=== PATIENT | female | born 1955 | race Caucasian/White ===

== ENCOUNTER 2017-11-11 21:50 | Emergency (ER) | payer MEDICAID, SELFPAY ==
[2017-11-11 21:50] VITALS: PULSE 85; RESP 16; TEMP 36.2; O2SAT 98; BMI 30.5
--- NOTE | 2017-11-11 21:58 | ED.VISSUMM ---
- ER Visit Summary Date of Service: 11/11/17 Chief Complaint: Laceration History of Present Illness: The patient is a 62 F presenting after a fall in her kitchen. She states she slipped and fell hitting her right elbow. She has a laceration to her right elbow. She did not hit her head or lose consciousness. Her last tetanus is unknown. She denies other injuries. Physical Examination: Vitals are stable. Patient is afebrile. Alert no acute distress. HEENT exam is unremarkable. Neck is nontender Lungs are clear and equal bilaterally. Heart is regular rate and rhythm. Abdomen is soft nontender nondistended. Extremities right posterior elbow 2.0 cm laceration, active full range of motion Skin is warm and dry. No focal neurologic deficit. Remainder of exam is unremarkable. Emergency Department Course and Treatment: Patient is given tetanus IM. Right elbow x-ray shows no acute fracture. Wound was copiously irrigated. Anesthetized with lidocaine. 4, 5-0 simple sutures were placed. Patient tolerated this well. Advised wound care instructions. Advised to follow-up with her primary care physician. Advised to return to ED for worsening complaints. Disposition: Discharged home Impression: Right elbow laceration, laceration repair This note was generated with [employer] dictation software. It may contain incorrect words, spelling, and punctuation that were not noted in review of the chart prior to signing ED Disposition - Plan for ED Patient: Chief Complaint: Laceration Referrals: Jose Brown MD [Primary Care Provider] -
[2017-11-11] MEDS: Diphth,Pertuss(Acell),Tet Vac 0.5 ML Vial IM (22:11)
--- NOTE | 2017-11-11 22:36 | ED.DEP ---
ED Disposition - Plan for ED Patient: Chief Complaint: Laceration Instructions: ED Laceration All Referrals: Jose Brown MD [Primary Care Provider] -
[2017-11-11 22:48] VITALS: BP 136/81
== END 2017-11-11 23:12 | disposition home or self-care (01) ==
LOC: ED 22:09
PROVIDERS: Emergency Provider Emergency Medicine; Family Provider Internal Medicine; PCP Internal Medicine
DX: S51.011A Laceration without foreign body of right elbow, initial encounter (principal); Z23 Encounter for immunization; W01.0XXA Fall on same level from slipping, tripping and stumbling without subsequent striking against object, initial encounter; Y93.89 Activity, other specified; Y92.000 Kitchen of unspecified non-institutional (private) residence as the place of occurrence of the external cause; Y99.8 Other external cause status
CPT/HCPCS: 12001; 73080; 90471; 90715; 99284

== ENCOUNTER 2017-12-14 14:47 | Emergency (ER) | payer MEDICAID, SELFPAY ==
[2017-12-14 14:47] VITALS: BP 110/76; PULSE 106; RESP 30; TEMP 36.7; O2SAT 95; BMI 36.1
--- NOTE | 2017-12-14 15:07 | CT_ITS ---
STUDY: CT BRAIN WITHOUT CONTRAST REASON FOR EXAM: Female, 62 years old. Headaches. Confusion. RADIATION DOSAGE (If Supplied By Facility): CTDIvol = ( 44.99 ) mGy, DLP = ( 779.24 ) mGycm TECHNIQUE: Transaxial CT imaging of the brain was performed without administration of intravenous contrast material. Individualized dose optimization techniques were used for this CT. COMPARISON: None. FINDINGS: Normal soft tissue structures. Normal calvarium. There is mild cerebral atrophy with widening of the extra-axial spaces and ventricular dilatation. Normal white matter tracts of the cerebral hemispheres. Normal basal ganglia and thalami. Normal brainstem. Normal cerebellum. There is no intracranial hemorrhage. There are no findings of an acute ischemic infarction. Normal visualized paranasal sinuses. CT/Brain/Head without Contrast IMPRESSION: Chronic involutional changes of the brain. Electronically Signed: Alex Meadows MD at 16:05 EDT Tel [phone], Service support ,
--- NOTE | 2017-12-14 15:07 | CT_ITS ---
STUDY: CT ABDOMEN AND PELVIS WITHOUT CONTRAST REASON FOR EXAM: Female, 62 years old. Constipation and nausea RADIATION DOSAGE (If Supplied By Facility): CTDIvol = ( 19.56 ) mGy, DLP = ( 879.53 ) mGycm TECHNIQUE: Transaxial images were obtained from the dome of the diaphragm to the symphysis pubis without oral contrast, and without intravenous contrast. Sagittal and coronal images were reconstructed. Individualized dose optimization techniques were used for this CT. COMPARISON: None. FINDINGS: Minor interstitial thickening at the lung bases.. The visualized portions of the heart are within normal limits. Small hiatal hernia is present. Normal liver. Status post cholecystectomy.. Normal spleen. Normal pancreas. Normal bilateral adrenal glands. Normal right kidney. Normal left kidney. Normal visualized stomach. Nonspecific ileus with diffuse fecal retention in the colon. The appendix is visualized and appears normal. Mild atherosclerotic changes of the aorta without evidence for aneurysm. Normal inferior vena cava. Normal retroperitoneum. Nonspecific distention of the bladder. Normal abdominal wall. Lumbar spine demonstrates advanced spondylosis. Interosseous hemangioma within the L2 vertebral body. CT/Abdomen/Pelvis without Cont IMPRESSION: Nonspecific ileus with diffuse fecal retention in the colon. Status postcholecystectomy Electronically Signed: Fan Cevallos MD at 17:21 EDT , Service support ,
--- NOTE | 2017-12-14 15:12 | ED.DCSUM_ITS ---
- ER Visit Summary Date of Service: 12/14/17 Chief Complaint: Headache, dizzy, constipation History of Present Illness: The patient is a 62 F reports dizzy episodes since yesterday. She woke this morning with a headache behind her eyes. She has not taken anything for pain. She is also complaining of constipation but cannot tell me when her last bowel movement was. She denies prior abdominal surgeries. She denies history of constipation. Physical Examination: Vital signs in triage include a heart rate of 106 and respiratory rate of 30. The time of my examination she is sitting in a bedside chair in no acute distress and speaking full sentences. Head neck examination grossly unremarkable. Heart is regular rate and rhythm. Lung sounds are clear. Abdomen is soft with no focal tenderness on exam. Active bowel sounds are noted throughout. Neuro exam reveals no focal deficits. Test Results: CBC was normal white count. Hemoglobin 11.9. Chemistry studies significant for glucose of 144. Urinalysis normal. CT head shows chronic involutional changes. CT flank shows nonspecific ileus with diffuse fecal retention in the colon. Emergency Department Course and Treatment: Patient was given IV fluids, Zofran, Tylenol. Soapsuds enema was performed with small results. On repeat exam patient continues to have active bowel sounds throughout. She has been passing gas. There is no focal tenderness of her abdomen. She will be given mag citrate for home. She is to return for worsening symptoms or concerns. Treatment Plan: [] Disposition: Discharge Impression: 1. Constipation 2. Cephalgia, improved This note was generated with [employer] dictation software. It may contain incorrect words, spelling, and punctuation that were not noted in review of the chart prior to signing ED Disposition - Plan for ED Patient: Chief Complaint: General Illness Referrals: Jose Brown MD [Primary Care Provider] -
[2017-12-14] MEDS: Acetaminophen 500 MG Tablet 1000 MG PO (15:27)
[2017-12-14 15:28] LABS: Absolute Lymphocyte Count 1.32 X10^3/ul (0.83-4.51); Absolute Neutrophil Count 6.7 X10^3/uL (2.0-7.7); Basophil# 0.03 X10^3/uL; Basophil% 0.3 % (0-1); Eosinophil# 0.01 X10^3/uL; Eosinophils% 0.1 % (0-5); Hematocrit 36.3 % (37-47); Hemoglobin 11.9 g/dl (12.0-15.0); Lymphocyte # 1.32 X10^3/ul (4.0); Lymphocyte % 14.9 % (19-41); Mean Corp Hgb Conc 32.8 g/gl (32-36); Mean Corpuscular Hgb 28.3 pg (27.0-32.0); Mean Corpuscular Volume 86.4 fL (81-99); Mean Platelet Vol. 9.7 fl (6.2-12.0); Monocyte# 0.86 X10^3/uL; Monocyte% 9.7 % (0-10); Neutrophil # 6.65 X10^3/uL (2.7-7.7); Neutrophil % 74.9 % (47-70); Platelet Count 282 K/mm3 (150-450); RBC Distribution Width SD 44.1 fl (35.1-43.9); White Blood Count 8.9 K/mm3 (4.4-11.0)
[2017-12-14] MEDS: Ondansetron 4 MG/2 ML Vial IV (15:28)
[2017-12-14] MEDS: 0.9% Normal Saline 1,000 ML 150 ML IV (15:28)
[2017-12-14 15:31] LABS: POSITIVE COUNT NO; POSITIVE DIFFERENTIAL NO; POSITIVE MORPHOLOGY NO
[2017-12-14 15:37] LABS: Anion Gap 8 (5-15); BUN 16 mg/dL (7-18); BUN/Creat Ratio 17.3 RATIO (10-20); Calcium,Total 8.7 mg/dL (8.5-10.1); Chloride 107 mmol/L (98-107); Creatinine, Serum 0.92 mg/dL (0.55-1.02); EST Glomerular Filtration Rate 65 mL/min (>60); Est Glom Filt Rate - Afr Amer 79 mL/min (>60); Estimated Creatinine Clearance 77.54 ml/min; Glucose 144 mg/dL (74-106); Potassium 4.9 mmol/L (3.5-5.1); Sodium Level 138 mmol/L (136-145)
[2017-12-14 16:07] LABS: Bacteria 0 SEEN /hpf (None Seen); Mucous, Urine 0 SEEN /hpf (<or=2+); Red Blood Cells-Urine 0 SEEN /hpf (0-5)
[2017-12-14 16:21] LABS: Color, Urine Yellow (Yellow); Glucose, Dipstick Normal (Normal); Ketone-Dipstick Negative (Negative); Leukocyte Esterase-Dipstick Negative /ul (Negative); Nitrite-Dipstick Negative (Negative); Occult Blood-Urine Negative /ul (Negative); Protein-Dipstick Negative (Negative); Specific Gravity, Urine 1.015 (1.002-1.030); Urine Bilirubin Dipstick Negative (Negative); Urine Clarity Clear (Clear); Urine Urobilinogen Normal (Normal)
[2017-12-14 16:37] LABS: Squamous Epithelial Cells - UA 0-5 SEEN /hpf (5-10); White Blood Cells 0-5 SEEN /hpf (0-5)
[2017-12-14 17:00] VITALS: BP 110/55; PULSE 100; RESP 18; O2SAT 96
--- NOTE | 2017-12-14 18:26 | ED.DEP ---
ED Disposition - Plan for ED Patient: Disposition: Home or Assisted Living Chief Complaint: General Illness Instructions: ED Constipation, ED Cephalgia Unspecified Prescriptions: Magnesium Citrate [Citrate Of Magnesia] 150 ml PO Q12H PRN #300 ml PRN Reason: Constipation Referrals: Jose Brown MD [Primary Care Provider] - 1 Week
== END 2017-12-14 18:38 | disposition home or self-care (01) ==
PROVIDERS: Emergency Provider Emergency Medicine; Family Provider Internal Medicine; PCP Internal Medicine
DX: K59.00 Constipation, unspecified (principal); R51 Headache; R11.0 Nausea; R42 Dizziness and giddiness; R21 Rash and other nonspecific skin eruption; J45.909 Unspecified asthma, uncomplicated; E11.9 Type 2 diabetes mellitus without complications; I10 Essential (primary) hypertension; Z79.84 Long term (current) use of oral hypoglycemic drugs; Z79.899 Other long term (current) drug therapy
CPT/HCPCS: 70450; 74176; 80048; 81001; 85025; 96361; 96374; 99285; J7030; A4216; J2405

== ENCOUNTER 2018-11-29 16:26 | Emergency (ER) | payer MEDICAID, SELFPAY ==
[2018-11-29 16:27] VITALS: BP 124/71; PULSE 86; RESP 15; TEMP 35.8; O2SAT 95; BMI 26.8
--- NOTE | 2018-11-29 17:34 | ED.DCSUM_ITS ---
History of Present Illness Chief Complaint: Constipation Informant: Patient - Abdominal Pain/Flank Pain Onset: Month(s) Context: Gradual Onset Timing: Continuous Quality: Aching, Cramping Location: Diffuse Current Severity: Mild Maximum Severity: Moderate Worsened by: Nothing Relieved by: Nothing - Nausea/Vomiting/Emesis GI Symptom: Negative for: Nausea, Vomiting - Diarrhea/Melena/Hematochezia GI Symptom: Negative for: Diarrhea, Melena, Hematochezia Associated Symptoms: Negative for: Dysuria, Frequency, Hematuria, Urgency LMP: Postmenopausal Narrative: Pasha is a 63-year-old woman who presents with abdominal discomfort, distention and reported no bowel movement for 1 month. Upon questioning she has small blanquita occasionally. She is still passing gas. She denies history of abdominal surgery. She denies weight loss or weight gain. She denies night sweats. She denies bone pain. She has no other symptoms. Prior similar symptoms: No Recent Illness/Hospitalization: No Past Medical History - Allergies and Home Meds Allergies/Adverse Reactions: Allergies No Known Allergies Allergy (Verified 11/29/18 16:27) Primary Care Physician: Jose Brown MD [Primary Care Provider] - Smoking Status: Current every day smoker Review of Systems General: Denies: Chills, Fever, Malaise, Subjective, Sweats, Weight loss, - Eyes: Denies: Visual changes - bilaterally, Blurred Vision - bilaterally ENT: Denies: Rhinorrhea, Sore throat Cardiovascular: Denies: Chest pain, Palpitations Respiratory: Denies: Dyspnea, Cough, Dyspnea on exertion Gastrointestinal: Reports: Abdominal pain, Constipation, Hematochezia. Denies: Nausea, Vomiting, Diarrhea, Melena, -, - Genitourinary: Denies: Dysuria, Hematuria, Frequency Musculoskeletal: Denies: Myalgias, Arthralgias, Neck pain, Back pain, Swelling, Extremity Pain, -, - Skin: Denies: Rash, Wounds Neurological: Denies: Headache, Weakness, Parasthesia Hematologic: Denies: Easy bruising, Easy bleeding Physical Exam Vital Signs/Narrative: Vital Signs Temp Pulse Resp BP Pulse Ox 11/29/18 16:27 96.4 F L 86 15 124/71 H 95 Inital Vital Signs reviewed: Yes General: Well nourished, Well developed, Obese, No Acute Distress Eyes: Perrl, EOMI. Negative for: Pale conjunctiva, Scleral icterus ENT: No rhinorrhea, TM's clear Neck: Supple, Nontender, No lymphadenopathy, No JVD Cardiovascular: Regular rate, Regular rhythm, No murmurs, Normal S1, Normal S2 Respiratory: No distress, CTA bilaterally, Chest nontender Abdomen: Soft, Nontender, No masses, Hypoactive bowel sounds - Abdomen is tympanitic to percussion., Mass. Negative for: Nondistended, Normal bowel sounds, Hepatomegaly, Splenomegaly Rectal: - - Hemorrhoid noted 7:00 lithotomy position. Stool is soft formed and brown. There is no palpable masses or rectal tenderness. Back: Nontender, Normal Inspection Extremities: Nontender, No edema Skin: Normal color, No rash. Negative for: Cyanosis, Diaphoresis, Jaundice Neurological: Alert, Oriented x3, Cranial nerves II-XII grossly intact, Normal Strength, Normal Sensation Psychological: Normal affect, Normal Mood Diagnostic/Tx/Re-eval Chest X-Ray - ED: Read by ED Physician, - - Three-view x-ray of the abdomen was obtained. Chest portion reveals chronic changes. Cardiac silhouette and mediastinum are normal. Osseous structures are normal patient has not seen a gas pattern secondary to obstipation. - Medical Decision Making Patient was informed the reason she is having blood with bowel movements is secondary to inflamed hemorrhoid with evidence of recent bleeding. Because she is distended tympanitic will obtain x-ray to assess for ileus versus bowel obstruction versus obstipation. Because she is elderly will obtain CBC to assess for anemia and conference metabolic panel to assess for hypocalcemia, el evated alkaline phosphatase which may indicate malignancy. ED Disposition - Plan for ED Patient: Disposition: Home or Assisted Living Diagnosis: Abdominal pain, Obstipation, Bleeding hemorrhoid Referrals: Jose Brown MD [Primary Care Provider] - Additional Instructions: Guarding tomorrow morning drink 10 ounces of mag citrate. 4 hours later drink 1 glass of MiraLAX. Drink 1 glass of MiraLAX every hour until you have results.
[2018-11-29 17:54] LABS: Absolute Lymphocyte Count 0.94 X10^3/uL (0.83-4.51); Absolute Neutrophil Count 5.8 X10^3/uL (2.0-7.7); Basophil# 0.02 X10^3/uL; Basophil% 0.3 % (0-1); Eosinophil# 0.02 X10^3/uL; Eosinophils% 0.3 % (0-5); Hematocrit 36.2 % (37-47); Hemoglobin 11.8 g/dL (12.0-15.0); Lymphocyte # 0.94 X10^3/ul (4.0); Lymphocyte % 12.5 % (19-41); Mean Corp Hgb Conc 32.6 g/dL (32-36); Mean Corpuscular Hgb 28.4 pg (27.0-32.0); Mean Corpuscular Volume 87.2 fL (81-99); Mean Platelet Vol. 10.4 fl (6.2-12.0); Monocyte# 0.65 X10^3/uL; Monocyte% 8.7 % (0-10); NRBC Flagged by Analyzer 0 % (0-5); Neutrophil # 5.84 X10^3/uL (2.7-7.7); Neutrophil % 77.8 % (47-70); Platelet Count 213 K/mm3 (150-450); RBC Distribution Width CV 14.2 % (11.6-14.6); RBC Distribution Width SD 44.5 fl (35.1-43.9); Red Blood Count 4.15 M/mm3 (4.2-5.4); White Blood Count 7.5 K/mm3 (4.4-11.0)
--- NOTE | 2018-11-29 17:57 | RAD_ITS ---
STUDY: X-RAY - ACUTE ABDOMINAL SERIES REASON FOR EXAM: Female, 63 years old. Rectal bleeding TECHNIQUE: 2 views of the chest. Supine, 3 view(s) of the abdomen were obtained. COMPARISON: None. FINDINGS: The lungs are clear and expanded. Normal size heart. Normal mediastinum and mike. Normal visualized pulmonary arteries. Calcified aortic arch and descending thoracic aorta. There is a non-specific bowel gas pattern. Mild colonic fecal retention. Surgical clips in the right upper quadrant. The soft tissue structures of the abdomen and pelvis are unremarkable. Degenerative vertebral changes and scoliosis. RAD/Acute Abdomen Inc Chest IMPRESSION: Colonic fecal retention. Electronically Signed: Luther Bellamy DO at 18:12 EDT Tel [phone], Service support ,
[2018-11-29 18:16] LABS: ALB/GLOB Ratio 0.9 RATIO (0.9-2.4); AST(SGOT) 15 U/L (15-37); Alanine Aminotransfer ALT/SGPT 18 U/L (13-56); Albumin, Serum 3.4 g/dL (3.2-5.0); Alkaline Phosphatase 99 U/L (45-117); Anion Gap 7 (5-15); BUN 28 mg/dL (7-18); BUN/Creat Ratio 28.2 RATIO (10-20); Calcium,Total 8.6 mg/dL (8.5-10.1); Chloride 109 mmol/L (98-107); Creatinine, Serum 0.99 mg/dL (0.55-1.02); EST Glomerular Filtration Rate 60 mL/min (>60); Est Glom Filt Rate - Afr Amer 72 mL/min (>60); Estimated Creatinine Clearance 41.24 ml/min; Globulin 3.6 g/dL (2.2-4.2); Glucose 84 mg/dL (74-106); Sodium Level 140 mmol/L (136-145)
--- NOTE | 2018-11-29 18:33 | ED.VISSUMM ---
- ER Visit Summary Date of Service: 11/29/18 Chief Complaint: [] History of Present Illness: The patient is a 63 F [] Physical Examination: [] Test Results: [] Emergency Department Course and Treatment: [] Treatment Plan: [] Disposition: [] Impression: [] This note was generated with [employer] dictation software. It may contain incorrect words, spelling, and punctuation that were not noted in review of the chart prior to signing ED Disposition - Plan for ED Patient: Disposition: Home or Assisted Living Diagnosis: Abdominal pain, Obstipation, Bleeding hemorrhoid Instructions: CONSTIPATION (Adult) Referrals: Jose Brown MD [Primary Care Provider] - Additional Instructions: Guarding tomorrow morning drink 10 ounces of mag citrate. 4 hours later drink 1 glass of MiraLAX. Drink 1 glass of MiraLAX every hour until you have results.
[2018-11-29 18:40] VITALS: BP 108/66; PULSE 72; RESP 15; O2SAT 99
== END 2018-11-29 18:40 | disposition home or self-care (01) ==
PROVIDERS: Emergency Provider Emergency Medicine; Family Provider Internal Medicine; PCP Internal Medicine
DX: K59.00 Constipation, unspecified (principal); K64.9 Unspecified hemorrhoids; R10.9 Unspecified abdominal pain; F17.200 Nicotine dependence, unspecified, uncomplicated; E66.9 Obesity, unspecified
CPT/HCPCS: 74022; 80053; 85025; 99284; A4216

== ENCOUNTER 2019-05-18 17:46 | Emergency (ER) | payer MEDICAID, SELFPAY ==
[2019-05-18] VITALS (7 sets, daily range): BP systolic 106–159; BP diastolic 51–108; PULSE 103–117; RESP 19–28; TEMP 36.6; O2SAT 95–99; BMI 25.9
--- NOTE | 2019-05-18 18:24 | EKG12_ITS ---
Test Reason : REPEAT Blood Pressure : / mmHG Vent. Rate : 119 BPM Atrial Rate : 119 BPM P-R Int : 138 ms QRS Dur : 082 ms QT Int : 350 ms P-R-T Axes : 048 038 048 degrees QTc Int : 492 ms Sinus tachycardia with Premature atrial complexes Nonspecific ST abnormality Abnormal ECG Confirmed by IRINEO RAO, GERA ([id number]), non linear editor JOSE GEORGE ([id number]) on 05/20/2019 8:10:50 AM Referred By: SYEDA Confirmed By:LAILA CABELLO MD
--- NOTE | 2019-05-18 18:36 | EKG12_ITS ---
Test Reason : DYSRYTHMIA Blood Pressure : / mmHG Vent. Rate : 110 BPM Atrial Rate : 110 BPM P-R Int : 138 ms QRS Dur : 082 ms QT Int : 368 ms P-R-T Axes : 041 028 046 degrees QTc Int : 498 ms Sinus tachycardia Otherwise normal ECG Confirmed by IRINEO RAO, GERA ([id number]), loan expeditor SHEY ANTHONY ([id number]) on 05/20/2019 12:03:04 PM Referred By: SYEDA Confirmed By:LAILA CABELLO MD
[2019-05-18] MEDS: Ipratropium/Albuterol Sulfate 3 ML AMPUL.NEB INHALATION (18:40)
[2019-05-18] MEDS: MethylPREDNISolone 125 MG/2 ML Vial IV (18:47)
[2019-05-18] MEDS: 0.9% Normal Saline 1,000 ML 999 ML IV ×2 (18:47→20:56)
--- NOTE | 2019-05-18 19:00 | RAD_ITS ---
STUDY: X-RAY CHEST REASON FOR EXAM: Female, 64 years old. SOB. Hx of anxiety, asthma and HTN. TECHNIQUE: 2 views COMPARISON: Prior chest radiograph of November 29, 2018 FINDINGS: The lungs are clear and expanded. There is no demonstrated pleural abnormality. Normal size heart. Normal mediastinum and mike. Normal visualized pulmonary arteries. There is atherosclerotic calcification of the aortic arch with tortuosity. There are diffuse degenerative changes of the visualized thoracic spine with a mild dextroscoliosis. Normal visualized ribs, clavicles, and shoulders. Surgical clips in the medial right upper quadrant. RAD/Chest PA and Lateral IMPRESSION: No acute cardiopulmonary findings or changes. Negative for consolidation, focal atelectasis, cardiomegaly or pleural effusion. Electronically Signed: Charu Khoury MD at 19:21 EST , Service support ,
[2019-05-18 19:07] LABS: Anion Gap 9 (5-15); BUN 23 mg/dL (7-18); BUN/Creat Ratio 28.8 RATIO (10-20); Calcium,Total 8.9 mg/dL (8.5-10.1); Chloride 109 mmol/L (98-107); EST Glomerular Filtration Rate 77 mL/min (>60); Est Glom Filt Rate - Afr Amer 93 mL/min (>60); Estimated Creatinine Clearance 55.45 ml/min; Glucose 124 mg/dL (74-106); Potassium 3.7 mmol/L (3.5-5.1); Sodium Level 140 mmol/L (136-145)
[2019-05-18 19:29] LABS: Absolute Lymphocyte Count 0.76 X10^3/uL (0.83-4.51); Basophil# 0.05 X10^3/uL; Basophil% 0.7 % (0-1); Eosinophil# 0.01 X10^3/uL; Eosinophils% 0.1 % (0-5); Hematocrit 37.5 % (37-47); Hemoglobin 12.4 g/dL (12.0-15.0); Lymphocyte # 0.76 X10^3/ul (4.0); Lymphocyte % 10.1 % (19-41); Mean Corp Hgb Conc 33.1 g/dL (32-36); Mean Corpuscular Hgb 28.6 pg (27.0-32.0); Mean Corpuscular Volume 86.6 fL (81-99); Mean Platelet Vol. 10.4 fl (6.2-12.0); Monocyte# 0.73 X10^3/uL; Monocyte% 9.7 % (0-10); NRBC Flagged by Analyzer 0 % (0-5); Neutrophil # 5.96 X10^3/uL (2.7-7.7); Neutrophil % 79.1 % (47-70); Platelet Count 252 K/mm3 (150-450); RBC Distribution Width CV 12.9 % (11.6-14.6); RBC Distribution Width SD 40.3 fl (35.1-43.9); Red Blood Count 4.33 M/mm3 (4.2-5.4); White Blood Count 7.5 K/mm3 (4.4-11.0)
[2019-05-18 19:37] LABS: Lactic Acid 1.9 mmol/L (0.4-1.9)
--- NOTE | 2019-05-18 20:26 | ED.VISSUMM ---
- ER Visit Summary Date of Service: 05/18/19 Chief Complaint: Shortness of breath History of Present Illness: The patient is a [address] Brown. She reports that she has shortness of breath that began today. She has had a nonproductive cough for the past 4 days. She denies any fever chills. No chest pain. Review of systems is otherwise negative. Physical Examination: Vitals: Stable. Afebrile. General: Well-nourished and well-developed. Head: Normocephalic atraumatic. Neck: Supple, no lymphadenopathy. No JVD. Nontender. Cardiovascular: Regular rate and rhythm. No murmurs. Respiratory: No respiratory distress. Mild wheezing bilaterally with greatly decreased air movement Abdominal: Soft, nontender, nondistended, normal bowel sounds. No guarding, rebound, or peritoneal signs. Back: Nontender. Extremities: Nontender, no edema. Skin: Normal color, no rash. Neurologic: Alert and oriented ?3. Cranial nerves II through XII are intact. Normal strength and sensation. Psych: Normal affect. Test Results: Chest x-ray shows chronic changes. CTA shows no PE or dissection. EKG sinus tachycardia [address] changes. Chem-7 shows a chloride of 109, BUN 23, glucose 124. CBC shows 7 neutrophils 70 lymphocytes 10. Influenza is negative. Lactic acid is 1.9. Emergency Department Course and Treatment: Patient was treated albuterol Atrovent aerosols. She was given Solu-Medrol IV and doxycycline p.o. She is resting comfortably. Treatment Plan: Patient will be discharged with COPD exacerbation. She will be given a prescription for an albuterol MDI, doxycycline, prednisone. Instructed to follow-up with Dr. Brown in 3 to 5 days if not improving. Return to the emergency department for any worsening symptoms. Disposition: To home in improved and stable condition. Impression: 1. COPD exacerbation. This note was generated with [employer] dictation software. It may contain incorrect words, spelling, and punctuation that were not noted in review of the chart prior to signing ED Disposition - Plan for ED Patient: Disposition: Home or Assisted Living Instructions: Copd Flare Prescriptions: Prednisone [Deltasone] 40 mg PO DAILY #10 tab Prescription Printed Doxycycline 100 mg PO BID #14 cap Prescription Printed Albuterol Inhaler [Ventolin Hfa] 2 puff INHALATION Q4H PRN PRN #1 inhaler PRN Reason: Wheezing Prescription Printed Referrals: Jose Brown MD [Primary Care Provider] - 3-5 Days if not improving
[2019-05-18] MEDS: Doxycycline 100 MG CAPSULE PO (20:36)
--- NOTE | 2019-05-18 20:44 | CT_ITS ---
STUDY: CTA CHEST REASON FOR EXAM: Female, 64 years old. SOB, PANIC ATTACK, COUGH., HX HTN, ASTHMA, DM RADIATION DOSAGE (If Supplied By Facility): CTDIvol = ( 10.06 ) mGy, DLP = ( 378.7 ) mGycm TECHNIQUE: The examination was performed with the intravenous administration of IV 100mL Isovue-370. Post-processing of the angiographic images was performed, with multiplanar reformation and 3D reconstruction. Individualized dose optimization techniques were used for this CT. COMPARISON: Chest radiograph of May 18, 2019 FINDINGS: Normal enhancement of the main pulmonary artery and right and left pulmonary arteries. Somewhat limited for exclusion of peripheral pulmonary emboli secondary to motion artifact. Grossly negative for peripheral pulmonary emboli. Normal thoracic aorta and visualized great vessels. There is no demonstrated aortic dissection. Normal heart and pericardium. Normal mediastinum. Normal hilar regions. Normal visualized trachea and bronchi. The lungs are well expanded. Negative for major consolidation, focal atelectasis or pleural effusion. Normal chest wall structures. There are degenerative changes of thoracic spine. Status post cholecystectomy. Small hiatal hernia. CT/CTA Chest W/WO Contrast IMPRESSION: Limited by motion artifact. Grossly negative for pulmonary embolus. Atherosclerotic changes of the aorta without aneurysm or dissection. Normal cardiac size without pericardial effusion. No acute pulmonary findings. Negative for consolidation, focal atelectasis or a substantial pleural effusion. Status post cholecystectomy. Small hiatal hernia. Electronically Signed: Charu Khoury MD at 21:34 EST , Service support ,
== END 2019-05-18 22:09 | disposition home or self-care (01) ==
LOC: ED 18:14
PROVIDERS: Emergency Provider Emergency Medicine; PCP Internal Medicine
DX: J44.1 Chronic obstructive pulmonary disease with (acute) exacerbation (principal); E11.9 Type 2 diabetes mellitus without complications; I10 Essential (primary) hypertension; E78.00 Pure hypercholesterolemia, unspecified; Z87.891 Personal history of nicotine dependence; Z79.4 Long term (current) use of insulin; Z79.899 Other long term (current) drug therapy
CPT/HCPCS: 71046; 71275; 80048; 83605; 85025; 87804; 93005; 94640; 96361; 96374; 99285; J7030; Q9967; A4216

== ENCOUNTER → 2019-07-19 12:40 | Outpatient (CLI) | payer MEDICAID, SELFPAY ==
[2019-05-18 17:48] VITALS: BMI 25.9
== END ==
PROVIDERS: PCP Internal Medicine; Referring Provider Nurse Practitioner; Visit Provider Nurse Practitioner
DX: R05 Cough (principal); R06.02 Shortness of breath; Z20.828 Contact with and (suspected) exposure to other viral communicable diseases
CPT/HCPCS: 87635; C9803; G2023; U0004

== ENCOUNTER 2020-02-05 19:25 | Observation (INO) | payer MEDICAID, SELFPAY ==
[2019-05-18 17:48] VITALS: BMI 25.9
[2020-02-05 19:26] VITALS: PULSE 135; RESP 12; TEMP 37.1; O2SAT 96; BMI 27.6
[2020-02-05 19:33] VITALS: BP 146/93
--- NOTE | 2020-02-05 19:50 | RAD_ITS ---
STUDY: X-RAY CHEST REASON FOR EXAM: Female, 64 years old. SOB X 1 WEEK, FEVER TECHNIQUE: Single AP portable view of the chest. COMPARISON: 05/18/2019. FINDINGS: Very low lung volumes. No focal pulmonary opacities. No effusions. Normal size heart. Normal mediastinum and mike. Normal visualized pulmonary arteries. Normal visualized aortic arch and descending thoracic aorta. Normal visualized thoracic spine. Normal visualized ribs, clavicles, and shoulders. There is no demonstrated abnormality of the visualized soft tissue structures of the upper abdomen. RAD/Chest 1 View (Portable) IMPRESSION: Incomplete expansion of the lungs but no definite acute chest disease. Electronically Signed: Alexi Briceno MD at 20:30 EST , Service support ,
--- NOTE | 2020-02-05 19:50 | EKG12_ITS ---
Test Reason : AM EKG Blood Pressure : / mmHG Vent. Rate : 075 BPM Atrial Rate : 075 BPM P-R Int : 150 ms QRS Dur : 086 ms QT Int : 408 ms P-R-T Axes : 057 029 023 degrees QTc Int : 455 ms Normal sinus rhythm Normal ECG When compared with ECG of 05-FEB-2020 21:15, MANUAL COMPARISON REQUIRED, DATA IS UNCONFIRMED Confirmed by EILEEN RAO, VALDO ([id number]), editorial project manager JOSE GEORGE ([id number]) on 02/07/2020 9:44:23 AM Referred By: Judy Galo Confirmed By:VALDO ARELLANO MD
--- NOTE | 2020-02-05 19:51 | ED.VISSUMM ---
- ER Visit Summary Date of Service: 02/05/20 Chief Complaint: Cough and shortness of breath History of Present Illness: The patient is a 64 F history of diabetes and hypertension. Patient states that last week she has had a cough and worsening exertional shortness of breath. Denies chest pain except with coughing. No hemoptysis. Subjective fever currently no chills. No vomiting or diarrhea. No dysuria. Patient lives at home with family. Physical Examination: Older female no acute distress. Pulse ox 96% on room air no signs hypoxia. She is tachycardic at 135. Appears irregular like A. fib RVR. H EENT exam unremarkable. Neck nontender. No lymphadenopathy. No JVD. Lungs coarse breath sounds bilaterally. Dry cough. Heart tachycardic rate of 135 no murmur. Abdomen soft nontender. Normal bowel sounds no peritoneal signs. Extremities moves all 4. Calves are nontender without edema or cords. Neurologically she is awake and alert. Moving all 4 extremities. Answering questions and following commands. Test Results: EKG shows A. fib RVR rate of 127 with no acute signs of OK or ischemia. Chest x-ray portable 1 view read myself shows no acute abnormality. Normal cardiac silhouette mediastinum. No infiltrates. Radiologist also read the film and agrees. White count 13.5. Hemoglobin 13. No bands. Chemistries unremarkable normal creatinine and gap. Troponin normal. Lactic acid elevated 2.7. Covid was done at the senior living today and was reportedly negative. Emergency Department Course and Treatment: Older female with cough and shortness of breath. Rule out Covid versus viral syndrome versus pneumonia versus cardiac etiology. Treatment Plan: Repeat exam patient is doing well at 2200. She spontaneously converted and is now back in sinus rhythm. Hospitalist had a repeat EKG shows a normal sinus rhythm rate of 98 with no acute signs of OK or ischemia nor any dysrhythmia. Disposition: 23-hour observation Impression: New onset A. fib RVR History of diabetes This note was generated with [email or web address] dictation software. It may contain incorrect words, spelling, and punctuation that were not noted in review of the chart prior to signing ED Disposition - Plan for ED Patient:
[2020-02-05 20:00] VITALS: O2SAT 97
[2020-02-05 20:03] LABS: Absolute Lymphocyte Count 1.44 X10^3/uL (0.83-4.51); Absolute Neutrophil Count 11.1 X10^3/uL (2.0-7.7); Basophil# 0.07 X10^3/uL; Basophil% 0.5 % (0-1); Hematocrit 42.6 % (37-47); Hemoglobin 13.3 g/dL (12.0-15.0); Lymphocyte # 1.44 X10^3/ul (4.0); Lymphocyte % 10.7 % (19-41); Mean Corp Hgb Conc 31.2 g/dL (32-36); Mean Corpuscular Hgb 27.5 pg (27.0-32.0); Mean Platelet Vol. 10.5 fl (6.2-12.0); Monocyte# 0.73 X10^3/uL; Monocyte% 5.4 % (0-10); NRBC Flagged by Analyzer 0 % (0-5); Neutrophil % 82.6 % (47-70); Platelet Count 317 K/mm3 (150-450); RBC Distribution Width CV 13.1 % (11.6-14.6); RBC Distribution Width SD 42.2 fl (35.1-43.9); Red Blood Count 4.84 M/mm3 (4.2-5.4); White Blood Count 13.5 K/mm3 (4.4-11.0)
[2020-02-05 20:24] LABS: ALB/GLOB Ratio 0.9 RATIO (0.9-2.4); AST(SGOT) 8 U/L (15-37); Alanine Aminotransfer ALT/SGPT 24 U/L (13-56); Albumin, Serum 3.7 g/dL (3.2-5.0); Alkaline Phosphatase 139 U/L (45-117); Anion Gap 9 (5-15); BUN 15 mg/dL (7-18); BUN/Creat Ratio 18.7 RATIO (10-20); Calcium,Total 8.9 mg/dL (8.5-10.1); Chloride 105 mmol/L (98-107); EST Glomerular Filtration Rate 76 mL/min (>60); Est Glom Filt Rate - Afr Amer 92 mL/min (>60); Estimated Creatinine Clearance 57.99 ml/min; Globulin 3.9 g/dL (2.2-4.2); Glucose 151 mg/dL (74-106); Potassium 4.4 mmol/L (3.5-5.1); Protein, Total 7.6 g/dL (6.4-8.2); Sodium Level 140 mmol/L (136-145)
--- NOTE | 2020-02-05 20:27 | HP.PCM_ITS ---
Problem List (1) Atrial fibrillation with RVR Status: Acute (2) Lactic acidosis Status: Acute (3) Acute bronchitis Status: Chronic Qualifiers: Bronchitis organism: unspecified organism Qualified Code(s): J20.9 - Acute bronchitis, unspecified (4) Hypertension Status: Chronic Qualifiers: Hypertension type: essential hypertension Qualified Code(s): I10 - Essential (primary) hypertension (5) Hyperlipidemia Status: Chronic Qualifiers: Hyperlipidemia type: unspecified Qualified Code(s): E78.5 - Hyperlipidemia, unspecified (6) Chronic insomnia Status: Chronic (7) Diabetes mellitus, type II Status: Chronic Qualifiers: 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: without termite exterminator helper use Diabetes mellitus complication status: with other specified complication Qualified Code(s): E11.69 - Type 2 diabetes mellitus with other specified complication History of Present Illness Date of Admission: 02/05/20 Chief Complaint: Cough, palpitations, dyspnea The patient is a 64 y/o F w/ PMHx: Diabetes mellitus type II, HTN, HLD who presents to the [facility] ED on 02/05/20 with history of mild cough and dyspnea with subjective fever over the last week with evaluation outpatient with diagnosis of acute bronchitis placed on oral antibiotic therapy without notable improvement with ongoing palpitations, more severe on day of ED presentation, not improving with no specific associated chest discomfort but given no resolution prompted patient to present to the ED for evaluation. Patient denied any recent headache, sore throat, body aches, nausea, emesis, diarrhea. Patient denies any recent Covid ill contacts but does admit that she does not wear her mask often but primarily has stayed at home she notes. Work-up in the ED included T 98.8, heart rate initially 135, BP 146/93, respiratory rate 12, 96% on room air, CBC with WC 13.5, hemoglobin 13.3, platelet 317 with left shift, CMP with glucose 151, lactic acid 2.7 with decreased to 2.1, troponin less than 0.015, rapid Covid testing negative, blood culture x2 pending per ED, chest x-ray with no acute cardiopulmonary findings, EKG initial with new onset atrial fibrillation with RVR. Upon hospitalist evaluation of patient noted on telemetry monitoring likely transition to sinus rhythm, repeat EKG obtained in the ED and confirmatory. Past Medical History Past Medical History (Chronic Problems): Chronic Problems Acute bronchitis (Chronic) Hypertension (Chronic) Hyperlipidemia (Chronic) Chronic insomnia (Chronic) Diabetes mellitus, type II (Chronic) Allergies No Known Allergies Allergy (Verified 02/05/20 19:31) Home Medications: Ambulatory Orders Medication Instructions Recorded Lisinopril 40 mg PO DAILY 12/01/13 Olanzapine 15 mg PO QHS 12/01/13 metFORMIN HCl [Glucophage] 1,000 mg PO BREAKFAST 12/01/13 Albuterol Inhaler [Ventolin Hfa] 2 puff INHALATION Q4H PRN PRN #1 05/18/19 inhaler Aspirin [Aspir-Low] 81 mg PO DAILY 05/18/19 Benztropine [Cogentin] 1 mg PO BID 05/18/19 Calcium Carbonate/Vitamin D3 1 ea PO BID 05/18/19 [Calcium 600 + Vit D Tablet] Gabapentin [Neurontin] 100 mg PO TIDCM 05/18/19 Meloxicam 15 mg PO DAILY 05/18/19 Metformin HCl 500 mg PO DINNER 05/18/19 Oxybutynin [Ditropan] 10 mg PO DAILY 05/18/19 Simvastatin 10 mg PO QHS 05/18/19 Verapamil HCl [Verapamil ER] 240 mg PO BID 05/18/19 traZODone [Desyrel] 100 mg PO QHS PRN 05/18/19 Amoxicillin 875 mg PO BID 02/05/20 Multivitamin [Daily Griffin] 1 ea PO DAILY 02/05/20 Surgical History: - - Cholecystectomy. 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 Smoking Status: Former smoker - Quit remotely. Tobacco Use: Non-smoker Alcohol: None Drugs: None - *Family History Maternal History Items: - - Patient denies any market maternal or paternal family history including heart disease, diabetes, cancer. Paternal History Items: - - Patient denies any market maternal or paternal family history including heart disease, diabetes, cancer. Review of Systems Constitutional: Reports: Fever - Noting subjective fever., Malaise, Weakness, Fatigue. Denies: Anorexia, Chills, Weight Change HEENT: Denies: Head Aches, Sinus Congestion, Sinus Drainage Cardiovascular: Reports: Palpitations. Denies: Chest Pain Respiratory: Reports: Cough, Shortness of Breath, Shortness of breath upon exertion. Denies: Shortness of breath at rest, Sputum production Gastrointestinal: Denies: Abdominal Pain, Nausea, Vomiting Genitourinary: Denies: Dysuria Musculoskeletal: Reports: Back Pain, Joint Pain, Leg Pain. Denies: Joint T enderness Skin: Denies: Rash, Wounds Neurological: Denies: Numbness, Tingling, Focal weakness Psychiatric: Denies: Anxiety, Depression, Homicidal Ideations, Suicidal Ideations Hematologic/ Lymphatic: Reports: Easy Bruising, Easy Bleeding VTE Information - Inpt Only VTE Present on Admission: No VTE Mechan Device Prophylaxis: SCD's VTE Pharm Prophylaxis ordered?: Yes Patient Problems: Active and Suspected Problems Atrial fibrillation with RVR (Acute) Lactic acidosis (Acute) Subjective: Patient seated upright in the ED bed, restless, quick speech, visible likely conversion to sinus rhythm on monitor, notes she is feeling improved since initial ED presentation. Objective: Physical Examination: General: awake, alert, oriented x 3 and cooperative, seated upright in the ED bed, no acute distress, notes feeling improved, mildly restless, noting she needs to use the restroom. Skin: normal color, turgor, no icterus, cyanosis. HEENT: AT/NC, EOMI, PERRLA, mildly dry MM, poor dentition, no carotid bruits or JVD noted. Lungs: Diminished breath sounds, greater bases, moderate effort, no rales, ronchi or wheezing. Heart: Currently appears converted, regular rate and rhythm; no gallop, rub audible. Abdomen: soft, overweight, NTTP, ND, normal BS, no HSM. Extremities: no cyanosis, clubbing, or edema. Neurological: patient awake, alert, oriented as noted; cognitive function suspect baseline intact; very quick speech; pupils equally reactive to light and accomodation; cranial nerves II-XII grossly normal, moving all 4 extremities, no focal deficits, strength mildly global decreased. Psychiatric: affect appears mildly restless, no acute distress evident, no acute evidence of depressive or anxiety feelings. - Physical Exam Vitals/I&O's: Vital Signs Temp Pulse Resp BP Pulse Ox 98.8 F 135 H 12 146/93 H 97 02/05/20 19:26 02/05/20 19:26 02/05/20 19:26 02/05/20 19:33 02/05/20 20:00 Oxygen Delivery Method Room Air Weight: 156 lb 1.396 oz Body Mass Index (BMI) 27.6 Laboratory Results 02/05/20 19:35: WBC 13.5 H, RBC 4.84, Hgb 13.3, Hct 42.6, MCV 88.0, MCH 27.5, M CHC 31.2 L, RDW Std Deviation 42.2, RDW Coeff of [place] 13.1, Plt Count 317, MPV 10.5, Immature Gran % (Auto) 0.800, Neut % (Auto) 82.6 H, Lymph % (Auto) 10.7 L, [place] % (Auto) 5.4, Eos % (Auto) 0.0, Baso % (Auto) 0.5, Absolute Neuts (auto) 11.1 H, Absolute Lymphs (auto) 1.44, Nucleated RBC % 0 02/05/20 19:35: Sodium 140, Potassium 4.4, Chloride 105, Carbon Dioxide 26.0, Anion Gap 9, BUN 15, Creatinine 0.80, Estim Creat Clear Calc 57.99, Est GFR (MDRD) Af Amer 92, Est GFR (MDRD) Non-Af 76, BUN/Creatinine Ratio 18.7, Glucose 151 H, Calcium 8.9, Total Bilirubin 0.30, AST 8 L, ALT 24, Alkaline Phosphatase 139 H, Troponin I < 0.015, Total Protein 7.6, Albumin 3.7, Globulin 3.9, Albumin/Globulin Ratio 0.9 02/05/20 19:35: Lactic Acid Pending Assessment/Plan All Active Problems Atrial fibrillation with RVR (Acute) Lactic acidosis (Acute) The patient is a 64 y/o F w/ PMHx: Diabetes mellitus type II, HTN, HLD who presents to the [facility] ED on 02/05/20 with history of mild cough and dyspnea with subjective fever over the last week with evaluation outpatient with diagnosis of acute bronchitis placed on oral antibiotic therapy without notable improvement with ongoing palpitations, more severe on day of ED presentation, not improving with no specific associated chest discomfort but given no resolution prompted patient to present to the ED for evaluation. 1. New onset, Paroxsymal atrial fibrillation: EKG in ED w/ atrial atrial fibrillation with RVR w/ RVR. Patient administered Cardizem bolus in ED with eventual conversion in the ED to sinus rhythm, repeat EKG confirmatory. Will admit to PCU, maintain on telemetry, obtain cardiac enzyme serial set, obtain magnesium level, obtain ECHO, obtain TSH level. Will initiate therapeutic Lo venox pending a.m. evaluation for consideration of alternate agent. Will dose patient with home verapamil x1 now and continue to closely monitor with possible oral medication changes pending response. 2. Lactic acidosis: Unclear specific etiology, possible component mild dehydration given recent acute bronchitis with ongoing evaluation as noted, will judiciously hydrate, trend lactic acid, pending sputum culture, respiratory viral panel as noted. Chest x-ray without acute findings. No urinary complaints. 3. Recent acute bronchitis: Patient recently diagnosed outpatient, Covid testing negative upon ED presentation, chest x-ray not severe appearing, CBC with mild WC elevation with left shift but not severe, will obtain respiratory viral panel as well as request being culture if able to give sample, continue antibiotic therapy but lower suspicion and may consider de-escalation off this agent. As needed albuterol. 4. Hypertension: Continue home regimen including verapamil, lisinopril with hold parameters as needed, PRN hydralazine. 5. Hyperlipidemia: We will continue patient home statin regimen. 6. Chronic insomnia: We will continue patient home nightly as needed trazodone. 7. Diabetes mellitus type II: Hold oral home regimen, ADA diet, accu checks w/ ISS. 8. DVT prophylaxis: SCDs, Lovenox. OBSV E&M: 20196 Initial observation care L3
[2020-02-05] MEDS: dilTIAZem 25 MG/5 ML Vial IV BOLUS (20:38)
[2020-02-05 20:42] LABS: Lactic Acid 2.7 mmol/L (0.4-1.9)
--- NOTE | 2020-02-05 21:20 | EKG12_ITS ---
Test Reason : REPEAT Blood Pressure : / mmHG Vent. Rate : 098 BPM Atrial Rate : 098 BPM P-R Int : 132 ms QRS Dur : 084 ms QT Int : 358 ms P-R-T Axes : 052 027 033 degrees QTc Int : 457 ms Normal sinus rhythm Possible Left atrial enlargement Borderline ECG Confirmed by EILEEN RAO, VALDO ([id number]), assignment editor DESIREE GRAMAJO ([id number]) on 02/08/2020 10:36:19 AM Referred By: Judy Galo Confirmed By:VALDO ARELLANO MD
--- NOTE | 2020-02-05 22:44 | ED.RN ---
pt brother Yeison was updated per pt request.
[2020-02-05 23:22] VITALS: BP 126/57; PULSE 87; RESP 20; TEMP 36.7; O2SAT 96
[2020-02-05 23:24] VITALS: BP 126/57; PULSE 91; RESP 16; O2SAT 96
[2020-02-06] VITALS (9 sets, daily range): BP systolic 113–146; BP diastolic 52–69; PULSE 66–87; RESP 16–18; TEMP 36.6–37.3; O2SAT 98; BMI 27.6; BMI 29.0
[2020-02-06] LABS: Reflex Lactate? Y
--- NOTE | 2020-02-06 00:12 | ECHOD_ITS ---
Reason For Study: ARRHYTHYMIA Procedure This was a 2D Doppler, Color Flow transthoracic echocardiogram. Exam performed portable in patient room. Left Ventricle Normal LV size. Left ventricular systolic function is normal. The estimated ejection fraction is 60 %. Stage 2 diastolic dysfunction. No regional wall motion abnormalities noted. Right Ventricle Normal RV size. Normal systolic function. Atria Normal left atrium. Normal right atrium. Mitral Valve There is moderate mitral annular calcification. Tricuspid Valve Normal tricuspid valve. Mild (1+) tricuspid valve insufficiency. Pulmonary artery systolic pressure is 32 mmHg. Aortic Valve Normal aortic valve. Trisinus/trileaflet aortic valve. Pulmonic Valve Normal pulmonic valve. Great Vessels Normal aortic root. The pulmonary artery is normal size. Normal inferior vena cava. Inferior vena cava collapse with sniff. Pericardium/Pleural No pericardial effusion. MMode/2D Measurements & Calculations LVIDd: 4.1 cm IVSd: 1.0 cm Ao root diam: 2.9 cm LVIDs: 2.7 cm LVPWd: 1.0 cm RVDd: 4.0 cm FS: 34.6 % LAV(MOD-bp): 42.2 ml LVAd ap4: 24.4 cm2 SV(MOD-sp4): 43.3 ml LAV(MOD-bp) Indexed: 24.8 ml/m2 EDV(MOD-sp4): 66.8 ml LAV(MOD-sp2): 49.4 ml EDV(sp4-el): 69.5 ml LAV(MOD-sp4): 36.4 ml LVAs ap4: 12.4 cm2 ESV(MOD-sp4): 23.5 ml ESV(sp4-el): 22.7 ml EF(MOD-sp4): 64.8 % EF(sp4-el): 67.4 % SV(sp4-el): 46.9 ml LA A4 area: 14.6 cm2 LA dimension(2D): 4.1 cm RA A4 area: 13.2 cm2 Time Measurements MV dec time: 0.22 sec Doppler Measurements & Calculations MV E max rohith: 94.1 cm/sec Lat Peak E' Rohith: 5.4 cm/sec Med Peak E' Rohith: 5.9 cm/sec MV A max rohith: 117.5 cm/sec E/E' lat: 17.5 E/E' med: 15.9 MV E/A: 0.80 Ao V2 max: 182.1 cm/sec LV V1 max: 159.5 cm/sec PA V2 max: 115.3 cm/sec Ao max P.3 mmHg LV V1 max P.2 mmHg TR max rohith: 264.3 cm/sec TR max P.0 mmHg Interpretation Summary Normal LV size. Left ventricular systolic function is normal. The estimated ejection fraction is 60 %. Stage 2 diastolic dysfunction. Pulmonary artery systolic pressure is 32 mmHg. Ordering Physician: Judy Galo Referring Physician: GREG CARLTON Performed By: Lacey Soni RDCS
[2020-02-06] MEDS: Benztropine 2 MG Tablet 1 MG PO ×2 (01:08→09:02)
[2020-02-06] MEDS: Verapamil SR 240 MG Tablet PO ×2 (01:08→09:02)
[2020-02-06] MEDS: Enoxaparin 80 MG/0.8 ML Syringe 70 MG SC ×2 (01:10→09:05)
[2020-02-06 01:16] LABS: Bedside Glucose 150 mg/dL (70-110)
[2020-02-06 01:29] LABS: Magnesium 1.8 mg/dL (1.6-2.6)
[2020-02-06 01:30] LABS: Lactic Acid 2.1 mmol/L (0.4-1.9)
[2020-02-06 03:29] LABS: Absolute Neutrophil Count 7.8 X10^3/uL (2.0-7.7); Basophil# 0.06 X10^3/uL; Basophil% 0.5 % (0-1); Eosinophil# 0.03 X10^3/uL; Eosinophils% 0.3 % (0-5); Hematocrit 39.8 % (37-47); Hemoglobin 12.5 g/dL (12.0-15.0); Lymphocyte % 21.2 % (19-41); Mean Corp Hgb Conc 31.4 g/dL (32-36); Mean Corpuscular Hgb 27.5 pg (27.0-32.0); Mean Corpuscular Volume 87.5 fL (81-99); Mean Platelet Vol. 10.2 fl (6.2-12.0); Monocyte# 0.97 X10^3/uL; Monocyte% 8.6 % (0-10); NRBC Flagged by Analyzer 0 % (0-5); Neutrophil # 7.78 X10^3/uL (2.7-7.7); Neutrophil % 68.8 % (47-70); Platelet Count 303 K/mm3 (150-450); RBC Distribution Width CV 13.2 % (11.6-14.6); RBC Distribution Width SD 41.6 fl (35.1-43.9); Red Blood Count 4.55 M/mm3 (4.2-5.4); White Blood Count 11.3 K/mm3 (4.4-11.0)
[2020-02-06] MEDS: 0.9% Normal Saline 1,000 ML 125 ML IV (04:15)
[2020-02-06 04:19] LABS: ALB/GLOB Ratio 0.9 RATIO (0.9-2.4); AST(SGOT) 16 U/L (15-37); Alanine Aminotransfer ALT/SGPT 22 U/L (13-56); Albumin, Serum 3.1 g/dL (3.2-5.0); Alkaline Phosphatase 113 U/L (45-117); Anion Gap 5 (5-15); BUN 14 mg/dL (7-18); BUN/Creat Ratio 22.1 RATIO (10-20); Calcium,Total 8.5 mg/dL (8.5-10.1); Chloride 108 mmol/L (98-107); Cholesterol 122 mg/dL (200); Creatinine, Serum 0.63 mg/dL (0.55-1.02); EST Glomerular Filtration Rate 100 mL/min (>60); Est Glom Filt Rate - Afr Amer 121 mL/min (>60); Estimated Creatinine Clearance 63.95 ml/min; Globulin 3.6 g/dL (2.2-4.2); Glucose 123 mg/dL (74-106); High Density Lipoprotein 61 mg/dL; Potassium 4.5 mmol/L (3.5-5.1); Protein, Total 6.7 g/dL (6.4-8.2); Sodium Level 138 mmol/L (136-145); Thyroid Stim Hormone (TSH) 1.29 uIU/mL (0.358-3.74); Triglycerides 83 mg/dL; Very Low Density Lipoprotein 17 mg/dL (5-40)
--- NOTE | 2020-02-06 05:55 | EKG12_ITS ---
Test Reason : SOB Blood Pressure : / mmHG Vent. Rate : 127 BPM Atrial Rate : 136 BPM P-R Int : 000 ms QRS Dur : 084 ms QT Int : 318 ms P-R-T Axes : 000 023 -12 degrees QTc Int : 462 ms Atrial fibrillation with rapid ventricular response Abnormal ECG Confirmed by EILEEN RAO, VALDO ([id number]), commercial production editor DESIREE GRAMAJO ([id number]) on 02/08/2020 10:36:36 AM Referred By: Judy Galo Confirmed By:VALDO ARELLANO MD
[2020-02-06 07:00] LABS: Bedside Glucose 123 mg/dL (70-110)
[2020-02-06] MEDS: Aspirin E.C. 81 MG Tablet PO (09:01)
[2020-02-06] MEDS: Lisinopril 40 MG Tablet PO (09:01)
[2020-02-06] MEDS: Senna/Docusate Sodium 1 Tablet 2 TABLET PO (09:02)
[2020-02-06] MEDS: Glucerna Shake 120 ML LIQUID PO ×2 (09:02→11:11)
[2020-02-06] MEDS: Oxybutynin 5 MG Tablet 10 MG PO (09:02)
[2020-02-06] MEDS: Gabapentin 100 MG Capsule PO ×2 (09:02→11:11)
--- NOTE | 2020-02-06 11:47 | PCM.DC ---
- Discharge Diagnoses Current Active Problems: Current Active and Chronic Problems Atrial fibrillation with RVR (Acute) Lactic acidosis (Acute) Acute bronchitis (Chronic) Hypertension (Chronic) Hyperlipidemia (Chronic) Chronic insomnia (Chronic) Diabetes mellitus, type II (Chronic) You will use the following diet at home:: Cardiac Discharge Activity: Return to Normal Activity Call your doctor if you observe: Shortness of breath, Dizziness, Fainting spells, Chest pain, Increased palpitations (irregular heartbeat) Allergies/Adverse Reactions: Allergies No Known Allergies Allergy (Verified 02/06/20 00:24) Medications to take at Discharge Lisinopril 40 mg PO DAILY 12/01/13 Olanzapine 15 mg PO QHS 12/01/13 metFORMIN HCl [Glucophage] 1,000 mg PO BREAKFAST 12/01/13 Albuterol Inhaler [Ventolin Hfa] 2 puff INHALATION Q4H PRN PRN #1 inhaler 05/18/19 Aspirin [Aspir-Low] 81 mg PO DAILY 05/18/19 Benztropine [Cogentin] 1 mg PO BID 05/18/19 Calcium Carbonate/Vitamin D3 [Calcium 600 + Vit D Tablet] 1 ea PO BID 05/18/19 Gabapentin [Neurontin] 100 mg PO TIDCM 05/18/19 Metformin HCl 500 mg PO DINNER 05/18/19 Oxybutynin [Ditropan] 10 mg PO DAILY 05/18/19 Simvastatin 10 mg PO QHS 05/18/19 Verapamil HCl [Verapamil ER] 240 mg PO BID 05/18/19 traZODone [Desyrel] 100 mg PO QHS PRN 05/18/19 Multivitamin [Daily Griffin] 1 ea PO DAILY 02/05/20 Rivaroxaban [Xarelto] 20 mg PO DAILY #30 tab 02/06/20 The following prescriptions were given: Rivaroxaban [Xarelto] 20 mg PO DAILY #30 tab Transmission Status: Pending to [facility] #30 Primary Care Physician: Jose Brown MD [Primary Care Provider] - Please follow up with your Primary Care Physician in: 1 Week Test Results: Test results from this visit will be discussed in further detail at your follow-up appointment, if applicable. Proposed Discharge Date: 02/06/20
[2020-02-06 12:05] LABS: Bedside Glucose 124 mg/dL (70-110)
--- NOTE | 2020-02-06 12:54 | CASEMGMT ---
Pt to be sent home on Xarelto at discharge and med e-scribed to [facility] previously. Call to Cosmo at [facility] and she states pt has no co-pay for Xarelto at this time. Rebeka NOLASCO CM
--- NOTE | 2020-02-06 13:48 | PCM.DC.SUM ---
<Kylah Whalen DETACKER - Last Filed: 02/06/20 13:57> Discharge Date and Diagnosis - Problem List Patient Problems: Active and Suspected Problems Atrial fibrillation with RVR (Acute) Lactic acidosis (Acute) Date of Admission: 02/05/20 Date of Discharge: 02/06/20 - Primary Discharge Diagnosis Acute Problems: Active Problems 1. New onset atrial fibrillation 2. Lactic acidosis 3. Recent acute bronchitis 4. Hypertension 5. Hyperlipidemia 6. Type 2 diabetes mellitus - Secondary Discharge Diagnosis Chronic Problems: Chronic Problems Acute bronchitis (Chronic) Hypertension (Chronic) Hyperlipidemia (Chronic) Chronic insomnia (Chronic) Diabetes mellitus, type II (Chronic) Hospital Course and Treatment Imaging Results: Diagnostic Data Chest X-Ray 02/05/20 19:50 IMPRESSION: Incomplete expansion of the lungs but no definite acute chest disease. Electronically Signed: Alexi Briceno MD at 20:30 EST , Service support , Operations: None Procedures: 2-D Echocardiogram Summary of Care Provided: The patient is a 64 year old F admitted 02/05/2020 due to cough, palpitations and dyspnea. 1. New onset atrial fibrillation-patient received Cardizem bolus with conversion to sinus rhythm. Troponin negative. TSH normal. Patient has remained in sinus rhythm. Continue home verapamil regimen. Echocardiogram pending and will be reviewed prior to discharge. Initiated on Xarelto 20 mg daily. CHADSVASC2 score 4. Follow-up with primary care provider in 1 week. 2. Lactic acidosis-suspect secondary to dehydration and reactive secondary to above. No evidence of infection. 3. Recent acute bronchitis-Covid negative. Chest x-ray unremarkable. Respiratory panel negative. Completed course of antibiotic which was prescribed as outpatient. 4. Hypertension-stable, continue verapamil, lisinopril. 5. Hyperlipidemia-continue statin. 6. Type 2 diabetes mellitus-continue home oral regimen. Patient seen and examined prior to discharge. Physical assessment as noted below. Patient is stable for discharge with follow up recommendations as noted above. This patient was seen by PASTORA Contreras under the supervision of Dr. Pedraza. Patient Problems: Active and Suspected Problems Atrial fibrillation with RVR (Acute) Lactic acidosis (Acute) - Physical Exam Vitals/I&O's: Vital Signs Temp Pulse Resp BP Pulse Ox 98.2 F 74 18 146/69 H 98 02/06/20 09:00 02/06/20 09:00 02/06/20 09:00 02/06/20 09:00 02/06/20 09:00 Oxygen Delivery Method Room Air Weight: 148 lb 12.992 oz Body Mass Index (BMI) 29.0 Intake and Output for Last 24 Hours 02/04/20 02/05/20 02/06/20 23:59 23:59 23:59 Intake Total 1340 / 1340 Balance 1340 / 1340 General: Alert, Oriented x3, Cooperative HEENT: Atraumatic, PERRLA, EOMI, Normocephalic Neck: Supple, No JVD, Negative Carotid Bruits Lungs: Clear to auscultation, Diminished Cardiovascular: Regular rate, No murmurs Abdomen: Bowel Sounds Present, Soft, Non Tender Extremities: No clubbing, No cyanosis, No edema, Capillary Refill Less than 3 Seconds Skin: No rashes, No breakdown Musculoskeletal: No Tenderness to Palpation of Joints or Extremities Neurological: Cranial nerves II-XII grossly intact, Neuro grossly intact Psych/Mental Status: Normal Affect, Appropriate Microbiology Past 72 Hours 02/06/20 05:40 Mucosa - Nasopharyngeal Respiratory Panel (PCR) - Final 02/05/20 20:00 Mucosa - Nasopharyngeal SARS-CoV-2 Antigen (Rapid) - Final Laboratory Results 02/05/20 19:35: WBC 13.5 H, RBC 4.84, Hgb 13.3, Hct 42.6, MCV 88.0, MCH 27.5, MCHC 31.2 L, RDW Std Deviation 42.2, RDW Coeff of Jesica 13.1, Plt Count 317, MPV 10.5, Immature Gran % (Auto) 0.800, Neut % (Auto) 82.6 H, Lymph % (Auto) 10.7 L, Ashley % (Auto) 5.4, Eos % (Auto) 0.0, Baso % (Auto) 0.5, Absolute Neuts (auto) 11.1 H, Absolute Lymphs (auto) 1.44, Nucleated RBC % 0 02/05/20 19:35: Sodium 140, Potassium 4.4, Chloride 105, Carbon Dioxide 26.0, Anion Gap 9, BUN 15, Creatinine 0.80, Estim Creat Clear Calc 57.99, Est GFR (MDRD) Af Amer 92, Est GFR (MDRD) Non-Af 76, BUN/Creatinine Ratio 18.7, Glucose 151 H, Calcium 8.9, Total Bilirubin 0.30, AST 8 L, ALT 24, Alkaline Phosphatase 139 H, Troponin I < 0.015, Total Protein 7.6, Albumin 3.7, Globulin 3.9, Albumin/Globulin Ratio 0.9 02/05/20 19:35: Lactic Acid 2.7 H* 02/06/20 00:40: Lactic Acid 2.1 H* 02/06/20 00:40: Magnesium 1.8, Troponin I < 0.015 02/06/20 01:11: POC Glucose 150 H 02/06/20 03:15: WBC 11.3 H, RBC 4.55, Hgb 12.5, Hct 39.8, MCV 87.5, MCH 27.5, MCHC 31.4 L, RDW Std Deviation 41.6, RDW Coeff of Jesica 13.2, Plt Count 303, MPV 10.2, Immature Gran % (Auto) 0.600, Neut % (Auto) 68.8, Lymph % (Auto) 21.2, Ashley % (Auto) 8.6, Eos % (Auto) 0.3, Baso % (Auto) 0.5, Absolute Neuts (auto) 7.8 H, Absolute Lymphs (auto) 2.40, Nucleated RBC % 0 02/06/20 03:15: Sodium 138, Potassium 4.5, Chloride 108 H, Carbon Dioxide 25.0, Anion Gap 5, BUN 14, Creatinine 0.63, Estim Creat Clear Calc 63.95, Est GFR (MDRD) Af Amer 121, Est GFR (MDRD) Non-Af 100, BUN/Creatinine Ratio 22.1 H, Glucose 123 H, Calcium 8.5, Total Bilirubin 0.20, AST 16, ALT 22, Alkaline Phosphatase 113, Total Protein 6.7, Albumin 3.1 L, Globulin 3.6, Albumin/Globulin Ratio 0.9, Triglycerides 83, Cholesterol 122, LDL Cholesterol 44, VLDL Cholesterol 17, HDL Cholesterol 61, TSH 1.29 02/06/20 03:15: Troponin I < 0.015 02/06/20 06:32: Troponin I < 0.015 02/06/20 06:41: POC Glucose 123 H 02/06/20 11:10: POC Glucose 124 H Current Medications Acetaminophen (Acetaminophen 325 Mg Tablet) 650 mg PO Q6H PRN PRN PRN Reason: Pain Score 1-10/Temp > 100.7 F Al Hydroxide/Mg Hydroxide (Mag Hydrox/Al Hydrox/Simeth 30 Ml Udc) 30 ml PO Q6H PRN PRN PRN Reason: Gastric Burning Albuterol Sulfate (Albuterol 2.5 Mg/3 Ml Vial.Neb.) 2.5 mg INHALATION Q2H PRN PRN PRN Reason: Dyspnea, wheezing Aspirin (Aspirin E.C. 81 Mg Tablet) 81 mg PO DAILY [facility] Last Admin: 02/06/20 09:01 Dose: 81 mg Documented by: Atorvastatin Calcium (Atorvastatin Calcium 10 Mg Tablet) 5 mg PO QHS [facility] Benztropine Mesylate (Benztropine 2 Mg Tablet) 1 mg PO BID [facility] Last Admin: 02/06/20 09:02 Dose: 1 mg Documented by: Enoxaparin Sodium (Enoxaparin 80 Mg/0.8 Ml Syringe) 70 mg SC Q12 [facility] Last Admin: 02/06/20 09:05 Dose: 70 mg Documented by: Gabapentin (Gabapentin 100 Mg Capsule) 100 mg PO TIDCM [facility] Last Admin: 02/06/20 11:11 Dose: 100 mg Documented by: Guaifenesin (Guaifenesin 10 Ml Udc (200mg/10ml)) 20 ml PO Q4H PRN PRN PRN Reason: COUGH Hydralazine HCl (Hydralazine 20 Mg/Ml Vial) 10 mg IV Q4H PRN PRN PRN Reason: SBP > 160 Insulin Human Lispro (Insulin Lispro 100 Unit/Ml Insuln.Pen) 0 unit SC [facility]; Protocol Last Admin: 02/06/20 11:11 Dose: Not Given Documented by: Lisinopril (Lisinopril 40 Mg Tablet) 40 mg PO DAILY [facility] Last Admin: 02/06/20 09:01 Dose: 40 mg Documented by: Magnesium Hydroxide (Magnesium Hydroxide 30 Ml Udc) 30 ml PO DAILY PRN PRN PRN Reason: Constipation Melatonin (Melatonin 3 Mg Tablet) 3 mg PO QHS PRN PRN PRN Reason: INSOMNIA Morphine Sulfate (Morphine 2 Mg/Ml Syringe) 2 mg IV Q3H PRN PRN PRN Reason: Pain Score 6-10 Nitroglycerin (Nitroglycerin (Inpatient Use) 0.4 Mg Tab.Subl) 0.4 mg SUBLINGUAL Q5M PRN PRN Reason: CARDIAC/CHEST PAIN Nutritional Formula (Lactose Free) (Glucerna Shake 120 Ml Liquid) 120 ml PO TIDCM [facility] Last Admin: 02/06/20 11:11 Dose: 120 ml Documented by: Olanzapine (Olanzapine 5 Mg/Tab Tab.Rapdis) 15 mg PO QHS [facility] Ondansetron HCl (Ondansetron 4 Mg/2 Ml Vial) 4 mg IV Q8H PRN PRN PRN Reason: NAUSEA/VOMITING Oxybutynin Chloride (Oxybutynin 5 Mg Tablet) 10 mg PO DAILY [facility] Last Admin: 02/06/20 09:02 Dose: 10 mg Documented by: Oxycodone HCl (Oxycodone 5 Mg Tablet) 5 mg PO Q4H PRN PRN PRN Reason: Pain Score 4-5 Prochlorperazine Edisylate (Prochlorperazine 10 Mg/2 Ml Vial) 5 mg IV Q4H PRN PRN PRN Reason: Breakthrough Nausea/Vomiting Psyllium Hydrophilic Mucilloid (Psyllium 1 Packet) 1 packet PO DAILY PRN PRN PRN Reason: Constipation Senna/Docusate Sodium (Senna/Docusate Sodium 1 Tablet) 2 tablet PO BID PRN PRN PRN Reason: Constipation Last Admin: 02/06/20 09:02 Dose: 2 tablet Documented by: Throat Lozenges (Benzocaine/Menthol 1 Lozenge) 1 lozenge MUCOUS MEM Q2H PRN PRN PRN Reason: SORE THROAT Trazodone HCl (Trazodone 100 Mg Tablet) 100 mg PO QHS PRN PRN PRN Reason: SLEEP Verapamil HCl (Verapamil Sr 240 Mg Tablet) 240 mg PO BID [facility] Last Admin: 02/06/20 09:02 Dose: 240 mg Documented by: Discharge Diet: Low fat/ Low Cholesterol Discharge Activity: Return to Normal Activity Call your doctor if you observe: Shortness of breath, Dizziness, Fainting spells, Chest pain, Increased palpitations (irregular heartbeat) Home Medications: Medications to take at Discharge Lisinopril 40 mg PO DAILY 12/01/13 Olanzapine 15 mg PO QHS 12/01/13 metFORMIN HCl [Glucophage] 1,000 mg PO BREAKFAST 12/01/13 Albuterol Inhaler [Ventolin Hfa] 2 puff INHALATION Q4H PRN PRN #1 inhaler 05/18/19 Aspirin [Aspir-Low] 81 mg PO DAILY 05/18/19 Benztropine [Cogentin] 1 mg PO BID 05/18/19 Calcium Carbonate/Vitamin D3 [Calcium 600 + Vit D Tablet] 1 ea PO BID 05/18/19 Gabapentin [Neurontin] 100 mg PO TIDCM 05/18/19 Metformin HCl 500 mg PO DINNER 05/18/19 Oxybutynin [Ditropan] 10 mg PO DAILY 05/18/19 Simvastatin 10 mg PO QHS 05/18/19 Verapamil HCl [Verapamil ER] 240 mg PO BID 05/18/19 traZODone [Desyrel] 100 mg PO QHS PRN 05/18/19 Multivitamin [Daily Griffin] 1 ea PO DAILY 02/05/20 Rivaroxaban [Xarelto] 20 mg PO DAILY #30 tab 02/06/20 Following Prescriptions Were Given to Patient: Rivaroxaban [Xarelto] 20 mg PO DAILY #30 tab Transmission Status: Received by [facility][id number] Primary Care Physician: Jose Brown MD [Primary Care Provider] - Please follow up with your Primary Care Physician in: 1 Week Disposition: Home Minutes spent on discharge:: 35 Patient Condition:: Stable Medical Necessity - Tobacco Use Smoking Status: Former smoker - Quit remotely. Tobacco Use: Non-smoker Meaningful Use Info Meaningful Use Diagnoses (Choose all that apply): None applicable <Calvin Pedraza - Last Filed: 02/07/20 07:22> Discharge Date and Diagnosis - Primary Discharge Diagnosis Acute Problems: Active Problems Atrial fibrillation with RVR (Acute) Lactic acidosis (Acute) - Secondary Discharge Diagnosis Chronic Problems: Chronic Problems Acute bronchitis (Chronic) Hypertension (Chronic) Hyperlipidemia (Chronic) Chronic insomnia (Chronic) Diabetes mellitus, type II (Chronic) Hospital Course and Treatment Summary of Care Provided: The patient is a 64 year old F with recent acute bronchitis on antibiotic was admitted with palpitation and found to be new onset A. fib. Patient seems paroxysmal A. fib. [id number] 2 score 4 and patient was started on anticoagulant Lovenox while in the hospital. Patient is on verapamil at home. 2D echo was done and reported as below [] Interpretation Summary Normal LV size. Left ventricular systolic function is normal. The estimated ejection fraction is 60 %. Stage 2 diastolic dysfunction. Pulmonary artery systolic pressure is 32 mmHg. Patient heart rate and blood pressure is controlled. TSH normal. Serial troponins negative. Patient discharged on Xarelto 20 mg daily. Patient also had lactic acidosis probably secondary to dehydration but no evidence of acute infection was found. Patient had COVID-19 negative with SARS-CoV-2 rapid test negative and respiratory panel negative. Chest x-ray shows incomplete expansion of lungs otherwise no acute chest disease. Other comorbidities hypertension, dyslipidemia and type 2 diabetes mellitus as mentioned above. Glucose is controlled. Patient is discharged home Discharge medication reconciliation done. Discharge follow-up instructions completed. Discharge process discussed with the patient and all questions were answered to patient's satisfaction. Clinical Impression(s) from Imaging Studies Chest X-Ray 02/05/20 19:50 IMPRESSION: Incomplete expansion of the lungs but no definite acute chest disease. Objective: Seen and examined. Patient was admitted for palpitation for few days, more severe on the day of presentation along with mild cough, dyspnea and subjective fever over the last week with diagnosis of acute bronchitis on oral antibiotic without notable improvement. In ED she was found to be A. fib with RVR. EKG showed new onset A. fib with RVR. Patient converted overnight after Cardizem IV bolus. In the morning, patient denies any symptoms of palpitation, chest pressure/chest pain, shortness of breath or dyspnea. She has mild occasional dry cough. Physical exam General: Alert, Oriented x3, Cooperative HEENT: Atraumatic, PERRLA, EOMI, Normocephalic Oral: No Gingival or Mucosal Lesions/ Ulcerations Neck: Supple, No JVD, Negative Carotid Bruits Lungs: Air entry diminished in bilateral lung bases. No crepitation/rhonchi. No hypoxia or tachypnea Cardiovascular: Regular rate, Regular Rhythm, Normal S1, Normal S2, No murmurs Abdomen: Bowel Sounds Present, Soft, Non Tender, Non-Distended : No renal angle tenderness. No suprapubic tenderness. Extremities: No edema, Capillary Refill Less than 3 Seconds Skin: No rashes, No breakdown Musculoskeletal: No Tenderness to Palpation of Joints or Extremities Neurological: Cranial nerves II-XII grossly intact, Deep Tendon Reflexes 2+/4 and Symmetrical, Neuro grossly intact Psych/Mental Status: Normal Affect, Appropriate. - Physical Exam Vitals/I&O's: Vital Signs Temp Pulse Resp BP Pulse Ox 97.8 F 68 18 125/52 H 98 02/06/20 15:00 02/06/20 15:00 02/06/20 15:00 02/06/20 15:00 02/06/20 15:00 Oxygen Delivery Method Room Air Weight: 148 lb 12.992 oz Body Mass Index (BMI) 29.0 Intake and Output for Last 24 Hours 02/05/20 02/06/20 02/07/20 23:59 23:59 23:59 Intake Total 1340 / 1340 Balance 1340 / 1340 Microbiology Past 72 Hours 02/06/20 05:40 Mucosa - Nasopharyngeal Respiratory Panel (PCR) - Final 02/05/20 20:00 Mucosa - Nasopharyngeal SARS-CoV-2 Antigen (Rapid) - Final Laboratory Results 02/06/20 06:32: Troponin I < 0.015 02/06/20 11:10: POC Glucose 124 H OBSV E&M: [id number] Observation care discharge
== END 2020-02-06 11:47 | disposition home or self-care (01) ==
LOC: ED 20:39 → PCU 21:50
PROVIDERS: Admitting Provider Family Medicine; Emergency Provider Emergency Medicine; PCP Internal Medicine; Referring Provider Family Medicine; Visit Provider Internal Medicine
DX: I48.0 Paroxysmal atrial fibrillation (principal); E11.9 Type 2 diabetes mellitus without complications; E78.5 Hyperlipidemia, unspecified; E87.2 Acidosis; I10 Essential (primary) hypertension; Z79.1 Long term (current) use of non-steroidal anti-inflammatories (NSAID); Z79.4 Long term (current) use of insulin; Z79.82 Long term (current) use of aspirin; Z79.899 Other long term (current) drug therapy; F51.04 Psychophysiologic insomnia
CPT/HCPCS: 36415; 71045; 80053; 80061; 82962; 83605; 83735; 84443; 84484; 85025; 87040; 87426; 87633; 93005; 93306; 96361; 96372; 96374; 97802; 99218; 99251; 99285; J7030; A4216; G0378; G0463

== ENCOUNTER 2020-02-27 22:19 | Inpatient (IN) | payer MEDICAID, SELFPAY ==
[2020-02-06 00:18] VITALS: BMI 29.0
[2020-02-27] VITALS (10 sets, daily range): BP systolic 77–138; BP diastolic 44–79; PULSE 95–153; RESP 10–32; TEMP 36.2–37.2; O2SAT 94–100; BMI 32.8
--- NOTE | 2020-02-27 22:24 | EKG12_ITS ---
Test Reason : CPR Blood Pressure : / mmHG Vent. Rate : 114 BPM Atrial Rate : 114 BPM P-R Int : 138 ms QRS Dur : 096 ms QT Int : 384 ms P-R-T Axes : 101 074 012 degrees QTc Int : 529 ms Sinus tachycardia Nonspecific T wave abnormality Prolonged QT Abnormal ECG Confirmed by IRINEO RAO, GERA ([id number]), sound editor JOSE GEORGE ([id number]) on 03/07/2020 10:16:51 AM Referred By: ZAHIDA Confirmed By:LAILA CABELLO MD
--- NOTE | 2020-02-27 22:25 | RAD_ITS ---
STUDY: X-RAY CHEST REASON FOR EXAM: Female, 64 years old. et tube placement -- line placement TECHNIQUE: Single AP portable view of the chest. COMPARISON: 02/05/2020 FINDINGS: Endotracheal tube abuts the right mainstem bronchi, may retract 3 cm to the mid trachea. Right central line tip overlies the distal SVC. Prominent interstitial markings and patchy airspace disease within the bilateral lungs are present. There is no demonstrated pleural abnormality. Normal size heart. Normal mediastinum and mike. Normal visualized pulmonary arteries. Normal visualized aortic arch and descending thoracic aorta. Normal visualized thoracic spine. Normal visualized ribs, clavicles, and shoulders. There is no demonstrated abnormality of the visualized soft tissue structures of the upper abdomen. RAD/Chest 1 View (Portable) IMPRESSION: 1. Endotracheal tube abutting the right mainstem bronchi, may retract 3 cm to mid trachea. 2. Prominent interstitial markings and patchy airspace disease within the bilateral lung parenchyma. Electronically Signed: Christophe Hahn DO at 0:18 EST , Service support ,
--- NOTE | 2020-02-27 22:41 | ED.VIS.GEN ---
History of Present Illness Chief Complaint: CPR Informant: Significant Other, Medical Service Representative Limited by: Coma Onset: Today Context: Gradual Onset Timing: Continuous Current Severity: Moderate Maximum Severity: Severe Narrative: The patient is a 64-year-old female who presents to the emergency department with rather severe shortness of breath. Gee was called because of significant shortness of breath. On arrival, the patient was tripoding and had sats in the 60s and 70s. They did attempt CPAP. The patient began to vomit into the mask. In route, the patient had a respiratory arrest. She was in PEA. CPR was started immediately. Patient was given 2 rounds of epinephrine in route. By the time the patient arrived here, Deuce device was then placed. CPR was continued. She was given 1 epi. I was able to remove the LMA. She did have significant obstruction with copious amounts of food material in the tubing and around her airway. The patient was immediately intubated. Again, no history was gathered from the patient. Prior similar symptoms: No Recent Illness/Hospitalization: Yes Past Medical History - Allergies and Home Meds Allergies/Adverse Reactions: Allergies No Known Allergies Allergy (Verified 02/06/20 00:24) Primary Care Physician: Jose Brown MD [Primary Care Provider] - Prior records reviewed: Yes Past Medical History: - - Diabetes, atrial fibrillation Surgical History: - - Cholecystectomy. Lives: With Family Smoking Status: Former smoker - Quit remotely. - Family History Maternal Family History: Reports: - - Patient denies any market maternal or paternal family history including heart disease, diabetes, cancer. Paternal Family History: Reports: - - Patient denies any market maternal or paternal family history including heart disease, diabetes, cancer. Review of Systems ROS: Unable to Obtain Physical Exam Vital Signs/Narrative: Vital Signs Temp Pulse Pulse Pulse Resp Resp Resp 02/27/20 22:36 99.0 F 128 H 26 H 02/27/20 22:20 153 H 114 H 16 32 H 10 L 02/27/20 22:19 137 H 20 H BP BP BP Pulse Ox 02/27/20 22:36 138/65 H 100 02/27/20 22:20 97/79 97/79 94 02/27/20 22:19 97/79 100 Inital Vital Signs reviewed: Yes General: Well nourished, Well developed, Acute Distress Head: Normocephalic, Atraumatic Eyes: - - Pupils were fixed not responsive. ENT: Moist mucous membranes, No rhinorrhea Neck: Supple, Nontender Cardiovascular: Regular rate, Regular rhythm, No murmurs Respiratory: Chest nontender, Diminished - Diminished with very coarse lung sounds and referred upper airway noise. Minimal spontaneous respirations Abdomen: Soft. Negative for: Tender Back: Normal Inspection Extremities: No edema Skin: Normal color, No rash Neurological: Coma Diagnostic/Tx/Re-eval Clinical Impression(s) from Imaging Studies Chest X-Ray 02/27/20 22:25 IMPRESSION: 1. Endotracheal tube abutting the right mainstem bronchi, may retract 3 cm to mid trachea. 2. Prominent interstitial markings and patchy airspace disease within the bilateral lung parenchyma. Electronically Signed: Christophe Hahn DO at 0:18 EST , Service support , Chest X-Ray 02/28/20 00:13 IMPRESSION: Possible mild vascular congestion with bilateral basilar atelectasis. Electronically Signed: Ximena Quiroga MD at 1:34 EST , Service support , Chest CT 02/28/20 00:56 IMPRESSION: Bilateral multifocal pneumonia with areas of superimposed atelectasis as described. Achalasia. No pleural effusion or pneumothorax. Electronically Signed: Ximena Quiroga MD at 1:42 EST , Service support , Brain CT 02/28/20 22:24 IMPRESSION: Chronic changes as described. No acute intracranial hemorrhage or space-occupying lesion. Electronically Signed: Ximena Quiroga MD at 1:38 EST , Service support , Abnormal Lab Results 02/27/20 02/27/20 02/27/20 22:35 22:35 22:35 WBC 13.7 H RBC 4.53 Hgb 12.6 Hct 41.0 MCV 90.5 MCH 27.8 MCHC 30.7 L RDW Std Deviation 45.1 H RDW Coeff of Jesica 13.6 Plt Count 387 MPV 10.5 Immature Gran % (Auto) 0.800 Neut % (Auto) 45.7 L Lymph % (Auto) 43.6 H [place] % (Auto) 9.2 Eos % (Auto) 0.2 Baso % (Auto) 0.5 Absolute Neuts (auto) 6.3 Absolute Lymphs (auto) 5.95 H Nucleated RBC % 0 Differential Comment SCANNED PT 16.8 H INR 1.4 APTT 30.9 Specimen Type Sample Site pH Bicarbonate Actual Total CO2 Base Excess O2 Saturation O2 % ABG pCO2 ABG pO2 Respiration Rate O2 Delivery Device Vent Mode Tidal Volume POC PEEP Sodium 137 Potassium 3.9 Chloride 104 Carbon Dioxide 20.0 L Anion Gap 13 BUN 19 H Creatinine 1.15 H Estim Creat Clear Calc 42.12 Est GFR (MDRD) Af Amer 61 Est GFR (MDRD) Non-Af 50 L BUN/Creatinine Ratio 16.5 Glucose 371 H Lactic Acid Calcium 8.5 Total Bilirubin 0.20 AST 28 ALT 28 Alkaline Phosphatase 119 H Troponin I 0.021 B-Natriuretic Peptide Total Protein 7.0 Albumin 3.2 Globulin 3.8 Albumin/Globulin Ratio 0.8 L Lipase 112 Urine Color Urine Clarity Urine pH Ur Specific [place] Urine Protein Urine Glucose (UA) Urine Ketones Urine Occult Blood Urine Nitrite Urine Bilirubin Urine Urobilinogen Ur Leukocyte Esterase Urine RBC Urine WBC Ur Squamous Epith Cells Urine Bacteria Urine Mucus 02/27/20 02/27/20 02/27/20 22:35 22:35 23:08 WBC RBC Hgb Hct MCV MCH MCHC RDW Std Deviation RDW Coeff of Jesica Plt Count MPV Immature Gran % (Auto) Neut % (Auto) Lymph % (Auto) [place] % (Auto) Eos % (Auto) Baso % (Auto) Absolute Neuts (auto) Absolute Lymphs (auto) Nucleated RBC % Differential Comment PT INR APTT Specimen Type Sample Site pH Bicarbonate Actual Total CO2 Base Excess O2 Saturation O2 % ABG pCO2 ABG pO2 Respiration Rate O2 Delivery Device Vent Mode Tidal Volume POC PEEP Sodium Potassium Chloride Carbon Dioxide Anion Gap BUN Creatinine Estim Creat Clear Calc Est GFR (MDRD) Af Amer Est GFR (MDRD) Non-Af BUN/Creatinine Ratio Glucose Lactic Acid 7.4 H* Calcium Total Bilirubin AST ALT Alkaline Phosphatase Troponin I B-Natriuretic Peptide 67.4 Total Protein Albumin Globulin Albumin/Globulin Ratio Lipase Urine Color Yellow Urine Clarity Clear Urine pH 6.0 Ur Specific [place] 1.020 Urine Protein 100 H Urine Glucose (UA) 1000 H Urine Ketones Negative Urine Occult Blood 25 H Urine Nitrite Negative Urine Bilirubin Negative Urine Urobilinogen Normal Ur Leukocyte Esterase Negative Urine RBC 0-5 SEEN Urine WBC 5-10 SEEN Ur Squamous Epith Cells 0 SEEN Urine Bacteria 0 SEEN Urine Mucus 0 SEEN 02/28/20 00:34 WBC RBC Hgb Hct MCV MCH MCHC RDW Std Deviation RDW Coeff of Jesica Plt Count MPV Immature Gran % (Auto) Neut % (Auto) Lymph % (Auto) [place] % (Auto) Eos % (Auto) Baso % (Auto) Absolute Neuts (auto) Absolute Lymphs (auto) Nucleated RBC % Differential Comment PT INR APTT Specimen Type ART Sample Site L Radial pH 7.30 L Bicarbonate Actual 20.9 L Total CO2 22 Base Excess -6 L O2 Saturation 100 H O2 % 100 ABG pCO2 43.0 ABG pO2 201 H Respiration Rate 14 O2 Delivery Device Adult Vent Vent Mode AC Tidal Volume 450 POC PEEP 5 Sodium Potassium Chloride Carbon Dioxide Anion Gap BUN Creatinine Estim Creat Clear Calc Est GFR (MDRD) Af Amer Est GFR (MDRD) Non-Af BUN/Creatinine Ratio Glucose Lactic Acid Calcium Total Bilirubin AST ALT Alkaline Phosphatase Troponin I B-Natriuretic Peptide Total Protein Albumin Globulin Albumin/Globulin Ratio Lipase Urine Color Urine Clarity Urine pH Ur Specific [place] Urine Protein Urine Glucose (UA) Urine Ketones Urine Occult Blood Urine Nitrite Urine Bilirubin Urine Urobilinogen Ur Leukocyte Esterase Urine RBC Urine WBC Ur Squamous Epith Cells Urine Bacteria Urine Mucus - Rhythm Strip Rhythm Strip: Sinus Rhythm Rate: 90 Ectopy: None - EKG Initial EKG Interpretation: Sinus Rhythm, No Acute Injury Pattern Prior: Unchanged - Medical Decision Making Patient is a 64-year-old female who presents to the emergency department with PEA after hypoxic respiratory arrest. The patient was intubated on arrival without medication. There was significant food material in the airway and covering the vocal cords. This was aggressively suctioned and swept. She was aggressively suctioned and intubated. During the time of post intubation, the tube had moved in and she was right mainstem. This was withdrawn. X-rays do show it still at the level of jayesh. It was withdrawn even more slightly. Repeat x-ray was improved. Patient did have some transient hypotension. Because of this, the patient had ultrasound-guided right internal jugular triple-lumen catheter placed by myself. There was easy flush. X-ray does confirm to be in good position. Patient underwent noncontrast head CT which was unremarkable for acute process. We did obtain pain a noncontrast CT of her chest which showed multiple levels of infiltrate, likely secondary to aspiration. Patient was covered with broad-spectrum antibiotics. Blood work was relatively unremarkable except for elevated lactic, which I feel is secondary to her significant global hypoxia. Patient was discussed with the intensive care and with the hospitalist and will be admitted at this time. Impression 1. Aspiration 2. Acute respiratory failure 3. Hypoxic respiratory arrest 4. Multilobar pneumonia 5. Intubation by ED physician 6. Right ultrasound-guided central line by ED physician - Critical Care Time Critical care time (excluding procedures): 30-74 minutes, Discussing w/Patient &/or Family/Model Photographers', Discussing w/Consultants, Arranging Admission or Transfer, Performing Direct Patient Care at Bedside ED Disposition - Plan for ED Patient: Referrals: Jose Brown MD [Primary Care Provider] -
--- NOTE | 2020-02-27 22:41 | CM.ED ---
Social Work Responding to [employer]. No family present. Per EMS family on scene and coming to the emergency room. Only contact listed on patient chart is patient brother. Patient currently intubated. Will continue to follow as needed. Diane WASSERMAN, JYOTI
[2020-02-27] MEDS: fentaNYL 100 MCG/2 ML Ampul 50 MCG IV (22:46)
[2020-02-27 22:49] LABS: Absolute Lymphocyte Count 5.95 X10^3/uL (0.83-4.51); Absolute Neutrophil Count 6.3 X10^3/uL (2.0-7.7); Basophil# 0.07 X10^3/uL; Basophil% 0.5 % (0-1); Eosinophil# 0.03 X10^3/uL; Eosinophils% 0.2 % (0-5); Hemoglobin 12.6 g/dL (12.0-15.0); Lymphocyte # 5.95 X10^3/ul (4.0); Lymphocyte % 43.6 % (19-41); Mean Corp Hgb Conc 30.7 g/dL (32-36); Mean Corpuscular Hgb 27.8 pg (27.0-32.0); Mean Corpuscular Volume 90.5 fL (81-99); Mean Platelet Vol. 10.5 fl (6.2-12.0); Monocyte# 1.25 X10^3/uL; Monocyte% 9.2 % (0-10); NRBC Flagged by Analyzer 0 % (0-5); Neutrophil # 6.25 X10^3/uL (2.7-7.7); Neutrophil % 45.7 % (47-70); POSITIVE DIFFERENTIAL YES; POSITIVE MORPHOLOGY YES; Platelet Count 387 K/mm3 (150-450); RBC Distribution Width CV 13.6 % (11.6-14.6); RBC Distribution Width SD 45.1 fl (35.1-43.9); Red Blood Count 4.53 M/mm3 (4.2-5.4); White Blood Count 13.7 K/mm3 (4.4-11.0)
[2020-02-27 22:50] LABS: Differential Indicated SCAN CRITERIA MET
[2020-02-27 22:57] LABS: International Normalized Ratio 1.4; Prothrombin Time (Protime)PT. 16.8 SECONDS (11.7-14.9)
[2020-02-27 22:58] LABS: Partial Thromboplast Time 30.9 Seconds (24.1-36.2)
[2020-02-27] MEDS: fentaNYL 100 MCG/2 ML Ampul IV (23:01)
--- NOTE | 2020-02-27 23:07 | ED.RN ---
pressure 89/50 order given for 1 liter bolus at this time
[2020-02-27 23:09] LABS: Differential Comment SCANNED
[2020-02-27 23:10] LABS: ALB/GLOB Ratio 0.8 RATIO (0.9-2.4); AST(SGOT) 28 U/L (15-37); Alanine Aminotransfer ALT/SGPT 28 U/L (13-56); Albumin, Serum 3.2 g/dL (3.2-5.0); Alkaline Phosphatase 119 U/L (45-117); Anion Gap 13 (5-15); BUN 19 mg/dL (7-18); BUN/Creat Ratio 16.5 RATIO (10-20); Calcium,Total 8.5 mg/dL (8.5-10.1); Chloride 104 mmol/L (98-107); Creatinine, Serum 1.15 mg/dL (0.55-1.02); EST Glomerular Filtration Rate 50 mL/min (>60); Est Glom Filt Rate - Afr Amer 61 mL/min (>60); Estimated Creatinine Clearance 42.12 ml/min; Globulin 3.8 g/dL (2.2-4.2); Glucose 371 mg/dL (74-106); Lipase 112 U/L (73-393); Potassium 3.9 mmol/L (3.5-5.1); Sodium Level 137 mmol/L (136-145)
[2020-02-27 23:10] LABS: Bacteria 0 SEEN /hpf (None Seen); Mucous, Urine 0 SEEN /hpf (<or=2+); Squamous Epithelial Cells - UA 0 SEEN /hpf (5-10)
[2020-02-27] MEDS: 0.9% Normal Saline 1,000 ML 999 ML IV (23:10)
--- NOTE | 2020-02-27 23:11 | ED.RN ---
keith mccormack emergency contact [phone] addison [phone] cell phone
--- NOTE | 2020-02-27 23:12 | ED.RN ---
family updated on condition at this time
[2020-02-27 23:15] LABS: Color, Urine Yellow (Yellow); Glucose, Dipstick 1000 mg/dl (Normal); Ketone-Dipstick Negative (Negative); Leukocyte Esterase-Dipstick Negative /ul (Negative); Nitrite-Dipstick Negative (Negative); Occult Blood-Urine 25 /ul (Negative); Protein-Dipstick 100 mg/dl (Negative); Urine Bilirubin Dipstick Negative (Negative); Urine Clarity Clear (Clear); Urine Urobilinogen Normal (Normal)
[2020-02-27 23:16] LABS: Lactic Acid 7.4 mmol/L (0.4-1.9)
[2020-02-27 23:22] LABS: Red Blood Cells-Urine 0-5 SEEN /hpf (0-5); White Blood Cells 5-10 SEEN /hpf (0-5)
[2020-02-27 23:26] LABS: BNP,B-Type NATRIURETIC PEPTIDE 67.4 pg/mL (0-100)
--- NOTE | 2020-02-27 23:28 | ED.RN ---
central line being placed at this time
[2020-02-28] VITALS (55 sets, daily range): BP systolic 70–137; BP diastolic 35–70; PULSE 71–99; RESP 13–27; TEMP 36.2–38.5; O2SAT 96–100; BMI 29.3; BMI 26.6
--- NOTE | 2020-02-28 00:07 | ED.RN ---
et tube backed out to 21 at the lips
[2020-02-28] MEDS: Midazolam 2 MG/2 ML Syringe 4 MG IV (00:13)
--- NOTE | 2020-02-28 00:13 | RAD_ITS ---
STUDY: X-RAY CHEST REASON FOR EXAM: Female, 64 years old. ADJUSTED ET TUBE TECHNIQUE: Single AP portable view of the chest. COMPARISON: 02/27/2020. FINDINGS: The endotracheal tube has the tip at the jayesh. The right IJ central line has a tip in the distal SVC/right atrial junction. The lungs are slightly underexpanded with fullness of the central markings which may indicate mild vascular congestion. There is bilateral basilar atelectasis. There is no demonstrated pleural abnormality. There is borderline cardiomegaly. Normal mediastinum and mike. Normal visualized pulmonary arteries. There is atherosclerotic calcification of the aortic arch with tortuosity. There are diffuse degenerative changes of the visualized thoracic spine. There is degenerative osteoarthritis of the bilateral shoulders. There is no demonstrated abnormality of the visualized soft tissue structures of the upper abdomen. RAD/Chest 1 View (Portable) IMPRESSION: Possible mild vascular congestion with bilateral basilar atelectasis. Electronically Signed: Ximena Quiroga MD at 1:34 EST , Service support ,
[2020-02-28 00:41] LABS: Base Excess -6 mmol/L (-2 to +2); Bicarbonate 20.9 mmol/L (22-26); Blood Gas Specimen Type ART; FI02 100; Mode AC; O2 Delivery Device Adult Vent; PEEP 5; PO2 201 mmHG (75-100); RR 14; SITE L Radial; SO2 100 % (95-99); Total Carbon Dioxide 22 mmol/L; Vt 450
--- NOTE | 2020-02-28 00:56 | CT_ITS ---
STUDY: CT CHEST WITHOUT CONTRAST REASON FOR EXAM: Female, 64 years old. RESPIRATORY ARREST ON THE WAY TO ER, CPR, PT INTUBATED, UNABLE TO ADVANCE THE OG DOWN, CONCERN FOR OBSTRUCTION RADIATION DOSAGE (If Supplied By Facility): CTDIvol = ( 16.00 ) mGy, DLP = ( 587.65 ) mGycm TECHNIQUE: Transaxial imaging was performed without the administration of intravenous contrast material. Multiplanar coronal and sagittal images were reformatted. Individualized dose optimization techniques were used for this CT. COMPARISON: None. FINDINGS: There is an endotracheal tube in place. There are subtle bilateral upper lobe groundglass opacities consistent with multifocal pneumonitis. There is more consistent consolidation involving the dependent portion of the bilateral upper lobes, more severe on the left compared to the right. Bilateral lower lobe atelectasis with consolidation on the left which may indicate superimposed left lower lobe infiltrate. There is no demonstrated pleural abnormality. Normal heart and pericardium. Normal mediastinum. Normal hilar regions. Normal unenhanced pulmonary arteries. There is atherosclerotic calcification of the aortic arch with tortuosity and elongation of the aortic arch and descending thoracic aorta. Diffuse osteopenia along with degenerative disease of the spine. There is diffuse dilatation of the esophagus with the 40 degree and suggestive of achalasia. Remainder of the visualized upper abdominal structures unremarkable. CT/Chest without Contrast IMPRESSION: Bilateral multifocal pneumonia with areas of superimposed atelectasis as described. Achalasia. No pleural effusion or pneumothorax. Electronically Signed: Ximena Quiroga MD at 1:42 EST , Service support ,
--- NOTE | 2020-02-28 01:23 | ED.RN ---
unable to insert OG after mutual attempts by several nurses. Dr. Wong made aware at this time
--- NOTE | 2020-02-28 01:54 | HP.PCM_ITS ---
Problem List (1) Respiratory failure Status: Acute Qualifiers: Chronicity: acute Respiratory failure complication: hypoxia Qualified Code(s): J96.01 - Acute respiratory failure with hypoxia (2) Atrial fibrillation with RVR Status: Chronic (3) Lactic acidosis Status: Acute (4) Hypertension Status: Chronic Qualifiers: Hypertension type: essential hypertension Qualified Code(s): I10 - Essential (primary) hypertension (5) Hyperlipidemia Status: Chronic Qualifiers: Hyperlipidemia type: unspecified Qualified Code(s): E78.5 - Hyperlipidemia, unspecified (6) Chronic insomnia Status: Chronic (7) Diabetes mellitus, type II Status: Chronic Qualifiers: 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 The patient is sedated and intubated and unable to provide history, therefore, history is obtained via chart and indirectly through family members. Apparently, she had been eating something earlier in the day and had some respiratory distress and subsequently cleared the obstruction but later began to have respiratory distress again and they called the ambulance. Upon arrival the squad found her to be hypoxic with a pulse ox of 70% and they attempted CPAP while in route to the hospital the patient had a full cardiopulmonary arrest and CPR was initiated. Per ER physician when she was intubated in the emergency room there was copious oral contents in the airway and there was concern for prolonged period of hypoxia. Also her pupils were dilated and fixed upon arrival per ER physician. She did respond to CPR and they obtained a spontaneous pulse, patient was intubated and sedated and placed on ventilator. CT scan was obtained negative for hemorrhage. Laboratory studies obtained showed a WBC count of 13.7, hemoglobin 12.6, hematocrit 41, platelets 387, sodium 137, potassium 3.9, chloride 104, bicarb 20, creatinine 1.5, BUN 19, glucose 371, lactate 7.4, troponin 0.2, Covid negative. Case was discussed by ER physician to Dr. Enciso instrument repair specialist and patient will be admitted to the ICU. Past Medical History Past Medical History (Chronic Problems): Chronic Problems Atrial fibrillation with RVR (Chronic) Acute bronchitis (Chronic) Hypertension (Chronic) Hyperlipidemia (Chronic) Chronic insomnia (Chronic) Diabetes mellitus, type II (Chronic) Allergies No Known Allergies Allergy (Verified 02/06/20 00:24) Home Medications: Ambulatory Orders Medication Instructions Recorded Lisinopril 40 mg PO DAILY 12/01/13 Olanzapine 10 mg PO QHS 12/01/13 metFORMIN HCl [Glucophage] 1,000 mg PO BREAKFAST 12/01/13 Albuterol Inhaler [Ventolin Hfa] 2 puff INHALATION Q4H PRN PRN #1 05/18/19 inhaler Aspirin [Aspir-Low] 81 mg PO DAILY 05/18/19 Benztropine [Cogentin] 1 mg PO BID 05/18/19 Calcium Carbonate/Vitamin D3 1 ea PO BID 05/18/19 [Calcium 600 + Vit D Tablet] Gabapentin [Neurontin] 100 mg PO TIDCM 05/18/19 Metformin HCl 500 mg PO DINNER 05/18/19 Oxybutynin [Ditropan] 10 mg PO DAILY 05/18/19 Simvastatin 10 mg PO QHS 05/18/19 Verapamil HCl [Verapamil ER] 240 mg PO BID 05/18/19 traZODone [Desyrel] 100 mg PO QHS PRN 05/18/19 Multivitamin [Daily Griffin] 1 ea PO DAILY 02/05/20 Rivaroxaban [Xarelto] 20 mg PO DAILY #30 tab 02/06/20 Meloxicam [Mobic] 15 mg PO DAILY 02/27/20 Surgical History: - - Cholecystectomy. 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 Paternal History Items: - - Patient denies any market maternal or paternal family history including heart disease, diabetes, cancer. Review of Systems Unable to obtain accurate/complete ROS d/t: patient is sedated VTE Information - Inpt Only VTE Present on Admission: No VTE Mechan Device Prophylaxis: None VTE Pharm Prophylaxis ordered?: Yes - Physical Exam Vitals/I&O's: Vital Signs Temp Pulse Resp BP Pulse Ox 97.6 F L 90 14 96/54 L 100 02/28/20 01:41 02/28/20 01:41 02/28/20 01:41 02/28/20 01:41 02/28/20 01:41 Oxygen Flow Rate (L/min) 15 Oxygen Delivery Method Mechanical Ventilator Weight: 170 lb 13.732 oz Body Mass Index (BMI) 29.3 Intake and Output for Last 24 Hours 02/26/20 02/27/20 02/28/20 23:59 23:59 23:59 Intake Total 1000 / 1000 116.73 / 116.73 Balance 1000 / 1000 116.73 / 116.73 General: - - sedated HEENT: - - pupils dilated and fixed Neck: Supple Lungs: Normal air movement Cardiovascular: Regular rate, No murmurs Abdomen: Bowel Sounds Present Extremities: No edema Skin: No rashes Neurological: - - is sedated Psych/Mental Status: Normal Affect, Appropriate Microbiology Past 72 Hours 02/27/20 23:18 Mucosa - Nose SARS-CoV-2 Antigen (Rapid) - Final Laboratory Results 02/27/20 22:35: WBC 13.7 H, RBC 4.53, Hgb 12.6, Hct 41.0, MCV 90.5, MCH 27.8, MCHC 30.7 L, RDW Std Deviation 45.1 H, RDW Coeff of Jesica 13.6, Plt Count 387, MPV 10.5, Immature Gran % (Auto) 0.800, Neut % (Auto) 45.7 L, Lymph % (Auto) 43.6 H , [place] % (Auto) 9.2, Eos % (Auto) 0.2, Baso % (Auto) 0.5, Absolute Neuts (auto) 6.3, Absolute Lymphs (auto) 5.95 H, Nucleated RBC % 0, Differential Comment SCANNED 02/27/20 22:35: PT 16.8 H, INR 1.4, APTT 30.9 02/27/20 22:35: Sodium 137, Potassium 3.9, Chloride 104, Carbon Dioxide 20.0 L, Anion Gap 13, BUN 19 H, Creatinine 1.15 H, Estim Creat Clear Calc 42.12, Est GFR (MDRD) Af Amer 61, Est GFR (MDRD) Non-Af 50 L, BUN/Creatinine Ratio 16.5, Glucose 371 H, Calcium 8.5, Total Bilirubin 0.20, AST 28, ALT 28, Alkaline Phosphatase 119 H, Troponin I 0.021, Total Protein 7.0, Albumin 3.2, Globulin 3.8, Albumin/Globulin Ratio 0.8 L, Lipase 112 02/27/20 22:35: Lactic Acid 7.4 H* 02/27/20 22:35: B-Natriuretic Peptide 67.4 02/27/20 23:08: Urine Color Yellow, Urine Clarity Clear, Urine pH 6.0, Ur Specific [place] 1.020, Urine Protein 100 H, Urine Glucose (UA) 1000 H, Urine Ketones Negative, Urine Occult Blood 25 H, Urine Nitrite Negative, Urine Bilirubin Negative, Urine Urobilinogen Normal, Ur Leukocyte Esterase Negative, Urine RBC 0-5 SEEN, Urine WBC 5-10 SEEN, Ur Squamous Epith Cells 0 SEEN, Urine Bacteria 0 SEEN, Urine Mucus 0 SEEN 02/28/20 00:34: Specimen Type ART, Sample Site L Radial, pH 7.30 L, Bicarbonate Actual 20.9 L, Total CO2 22, Base Excess -6 L, O2 Saturation 100 H, O2 % 100, ABG pCO2 43.0, ABG pO2 201 H, Respiration Rate 14, O2 Delivery Device Adult Vent, Vent Mode AC, Tidal Volume 450, POC PEEP 5 Current Medications Fentanyl Citrate 1,000 mcg/ (Sodium Chloride) 100 mls @ 5 mls/hr CONT INF .Q20H [facility]; Protocol Last Admin: 02/27/20 23:55 Dose: 50 mcg/hr, 5 mls/hr Documented by: Norepinephrine Bitartrate 8 mg (/ Sodium Chloride) 250 mls @ 9.375 mls/hr CONT INF .[id number] [facility]; Protocol Last Titration: 02/28/20 01:30 Dose: 0 mcg/min, 0 mls/hr Documented by: Sodium Chloride () 250 mls @ 15 mls/hr IV .[id number] PRN PRN Reason: Saline Flush Last Infusion: 02/28/20 01:12 Dose: 15 mls/hr Documented by: Sodium Chloride () 250 mls @ 15 mls/hr IV .[id number] PRN PRN Reason: Additional IVPB Infusion Assessment/Plan All Active Problems Lactic acidosis (Acute) Respiratory failure (Acute) Chronic Problems Atrial fibrillation with RVR (Chronic) Acute bronchitis (Chronic) Hypertension (Chronic) Hyperlipidemia (Chronic) Chronic insomnia (Chronic) Diabetes mellitus, type II (Chronic) Plan 1. Acute respiratory failure?admit patient to ICU, consult instrument repair specialist Dr. Enciso, continue ventilator management and sedation currently initiated in the emergency room. Repeat CBC, BMP, lactate, chest x-ray in a.m. Patient will be started on Zosyn due to compromise of oral airway with gastric contents. 2. Atrial fibrillation?continue to monitor 3. Hypertension?patient is hypotensive currently and on Levophed 4. Diabetes?we will check blood sugars routinely 5. DVT prophylaxis?low molecular weight heparin Inpatient E&M: 66064 Init Hosp L3
[2020-02-28 02:42] LABS: Reflex Lactate? Y
[2020-02-28] MEDS: 0.9% Saline Lock 10 ML Syringe IV ×3 (03:08→13:39)
[2020-02-28 03:22] LABS: Lactic Acid 1.6 mmol/L (0.4-1.9)
[2020-02-28 04:28] LABS: Absolute Lymphocyte Count 0.32 X10^3/uL (0.83-4.51); Absolute Neutrophil Count 12.2 X10^3/uL (2.0-7.7); Basophil# 0.02 X10^3/uL; Basophil% 0.2 % (0-1); Hematocrit 36.5 % (37-47); Hemoglobin 11.8 g/dL (12.0-15.0); Lymphocyte # 0.32 X10^3/ul (4.0); Lymphocyte % 2.4 % (19-41); Mean Corp Hgb Conc 32.3 g/dL (32-36); Mean Corpuscular Hgb 27.7 pg (27.0-32.0); Mean Corpuscular Volume 85.7 fL (81-99); Monocyte# 0.54 X10^3/uL; Monocyte% 4.1 % (0-10); NRBC Flagged by Analyzer 0 % (0-5); Neutrophil # 12.16 X10^3/uL (2.7-7.7); Neutrophil % 92.8 % (47-70); POSITIVE DIFFERENTIAL YES; Platelet Count 275 K/mm3 (150-450); RBC Distribution Width CV 13.6 % (11.6-14.6); RBC Distribution Width SD 42.1 fl (35.1-43.9); Red Blood Count 4.26 M/mm3 (4.2-5.4); White Blood Count 13.1 K/mm3 (4.4-11.0)
[2020-02-28 04:30] LABS: Differential Indicated SCAN CRITERIA MET
[2020-02-28] MEDS: Propofol 10MG/Ml 1,000 MG/100 ML Bottle 4.1 MG CONT INF ×2 (04:30→14:00)
[2020-02-28 04:43] LABS: Anion Gap 7 (5-15); BUN 22 mg/dL (7-18); BUN/Creat Ratio 29.8 RATIO (10-20); Calcium,Total 8.1 mg/dL (8.5-10.1); Chloride 106 mmol/L (98-107); Creatinine, Serum 0.74 mg/dL (0.55-1.02); EST Glomerular Filtration Rate 84 mL/min (>60); Est Glom Filt Rate - Afr Amer 101 mL/min (>60); Glucose 268 mg/dL (74-106); Potassium 4.4 mmol/L (3.5-5.1); Sodium Level 137 mmol/L (136-145)
[2020-02-28 05:00] LABS: CPK Total, Creatine Kinase 184 U/L (26-192); Triglycerides 67 mg/dL
--- NOTE | 2020-02-28 05:56 | PCM.CON.CC ---
Reason for Consult Date of Consultation: 02/28/20 Reason for Consultation: Acute hypoxemic respiratory failure History of Present Illness: The patient is a 64-year-old female, with a history as outlined below, who presented to the emergency department on February 26 after having developed acute shortness of breath after what was described as an acute aspiration event. The patient subsequently sustained PEA cardiac arrest. The patient was notably hypoxemic as a consequence of the aforementioned episode. The patient apparently has a history of choking with ingestion of food, but has never been formally worked up. The patient was recently admitted to the hospital at the end of January 2020 with new onset atrial fibrillation. Surface echocardiogram obtained during that hospitalization revealed stage II diastolic dysfunction with a pulmonary artery systolic pressure estimated to be 32 mmHg. On presentation to the hospital, the patient was noted to be afebrile but was notably tachycardic, tachypneic and hypoxemic. She was emergently intubated on arrival. Laboratory evaluation revealed an elevated white blood cell count of 14,000. Coagulation profile revealed an INR of 1.4. Chemistry profile was notable for a creatinine of 1.15 with a lactate of 7.4. Troponin was negative. Urine analysis was largely unremarkable. It was noted in the emergency department that upon intubation, a significant amount of food material was noted covering the patient's vocal cords. A right IJ triple-lumen catheter was also placed. CT chest revealed evidence of bilateral multifocal pneumonia along with evidence of achalasia and retained material in the esophagus with esophageal dilation. The patient was placed on antimicrobials and subsequently admitted to the medical intensive care unit. Overnight, nursing staff was unable to place an OG tube. This morning, general surgery was contacted to review the CT scan findings. Bedside upper endoscopy was performed which did reveal retained food product within the esophagus, obstructing the lumen. The food was then advanced endoscopically into the stomach and the esophagus was cleared. OG tube was successfully placed. Past Medical History Past Medical History (Chronic Problems): Chronic Problems Atrial fibrillation with RVR (Chronic) Acute bronchitis (Chronic) Hypertension (Chronic) Hyperlipidemia (Chronic) Chronic insomnia (Chronic) Diabetes mellitus, type II (Chronic) Allergies No Known Allergies Allergy (Verified 02/06/20 00:24) Home Medications: Ambulatory Orders Medication Instructions Recorded Lisinopril 40 mg PO DAILY 12/01/13 Olanzapine 10 mg PO QHS 12/01/13 metFORMIN HCl [Glucophage] 1,000 mg PO BREAKFAST 12/01/13 Albuterol Inhaler [Ventolin Hfa] 2 puff INHALATION Q4H PRN PRN #1 05/18/19 inhaler Aspirin [Aspir-Low] 81 mg PO DAILY 05/18/19 Benztropine [Cogentin] 1 mg PO BID 05/18/19 Calcium Carbonate/Vitamin D3 1 ea PO BID 05/18/19 [Calcium 600 + Vit D Tablet] Gabapentin [Neurontin] 100 mg PO TIDCM 05/18/19 Metformin HCl 500 mg PO DINNER 05/18/19 Oxybutynin [Ditropan] 10 mg PO DAILY 05/18/19 Simvastatin 10 mg PO QHS 05/18/19 Verapamil HCl [Verapamil ER] 240 mg PO BID 05/18/19 traZODone [Desyrel] 100 mg PO QHS PRN 05/18/19 Multivitamin [Daily Griffin] 1 ea PO DAILY 02/05/20 Rivaroxaban [Xarelto] 20 mg PO DAILY #30 tab 02/06/20 Meloxicam [Mobic] 15 mg PO DAILY 02/27/20 Surgical History: - - Cholecystectomy. Psychiatric History: No pertinent psych hx [employer] History: No pertinent [employer] history Lives: With Family Smoking Status: Unknown if ever smoked - *Family History Maternal History Items: - - Patient denies any market maternal or paternal family history including heart disease, diabetes, cancer. Paternal History Items: - - Patient denies any market maternal or paternal family history including heart disease, diabetes, cancer. Review of Systems Unable to obtain accurate/complete ROS d/t: Due to current intubation and mechanical ventilation status. Patient Problems: Active and Suspected Problems Lactic acidosis (Acute) Respiratory failure (Acute) Achalasia (Acute) Objective: The patient's most recent lab work, culture data and imaging studies have all been personally reviewed. Rapid coronavirus antigen was negative. Blood and sputum cultures are pending. - Physical Exam Vitals/I&O's: Vital Signs Temp Pulse Resp BP Pulse Ox 98.5 F 85 14 97/54 L 100 02/28/20 03:15 02/28/20 05:00 02/28/20 05:00 02/28/20 05:00 02/28/20 05:00 Oxygen Flow Rate (L/min) 15 Oxygen Delivery Method Mechanical Ventilator Weight: 150 lb 2.157 oz Body Mass Index (BMI) 26.6 Intake and Output for Last 24 Hours 02/26/20 02/27/20 02/28/20 23:59 23:59 23:59 Intake Total 1000 / 1000 146.15 / 146.15 Output Total 600 / 600 Balance 1000 / 1000 -453.85 / -453.85 General: - - Intubated, sedated and mechanically ventilated. No ventilator to synchrony noted. HEENT: Atraumatic, PERRLA, Normocephalic Oral: No Gingival or Mucosal Lesions/ Ulcerations, - - Endotracheal and OG tubes now in place. Neck: Supple, No Nodes, Trachea Midline, - - Right IJ triple-lumen catheter in place Lungs: Diminished, Rhonchi Cardiovascular: Regular rate, Regular Rhythm Abdomen: Bowel Sounds Present, Soft, Non Tender Extremities: No clubbing, No cyanosis, No edema Skin: No breakdown Musculoskeletal: No Tenderness to Palpation of Joints or Extremities Lymphatic: No Cervical, Supraclavicular, or Inguinal Adenopathy Neurological: - - No focal neurological deficits. Currently sedated on the ventilator. Labs (Last 48 Hours) 02/27/20 02/27/20 02/27/20 22:35 22:35 22:35 WBC 13.7 H RBC 4.53 Hgb 12.6 Hct 41.0 MCV 90.5 MCH 27.8 MCHC 30.7 L RDW Std Deviation 45.1 H RDW Coeff of [place] 13.6 Plt Count 387 MPV 10.5 Immature Gran % (Auto) 0.800 Neut % (Auto) 45.7 L Lymph % (Auto) 43.6 H [place] % (Auto) 9.2 Eos % (Auto) 0.2 Baso % (Auto) 0.5 Absolute Neuts (auto) 6.3 Absolute Lymphs (auto) 5.95 H Nucleated RBC % 0 Differential Comment SCANNED PT 16.8 H INR 1.4 APTT 30.9 Specimen Type Sample Site pH Bicarbonate Actual Total CO2 Base Excess O2 Saturation O2 % ABG pCO2 ABG pO2 Respiration Rate O2 Delivery Device Vent Mode Tidal Volume POC PEEP Sodium 137 Potassium 3.9 Chloride 104 Carbon Dioxide 20.0 L Anion Gap 13 BUN 19 H Creatinine 1.15 H Estim Creat Clear Calc 42.12 Est GFR (MDRD) Af Amer 61 Est GFR (MDRD) Non-Af 50 L BUN/Creatinine Ratio 16.5 Glucose 371 H Lactic Acid Calcium 8.5 Total Bilirubin 0.20 AST 28 ALT 28 Alkaline Phosphatase 119 H Total Creatine Kinase Troponin I 0.021 B-Natriuretic Peptide Total Protein 7.0 Albumin 3.2 Globulin 3.8 Albumin/Globulin Ratio 0.8 L Triglycerides Lipase 112 Urine Color Urine Clarity Urine pH Ur Specific [place] Urine Protein Urine Glucose (UA) Urine Ketones Urine Occult Blood Urine Nitrite Urine Bilirubin Urine Urobilinogen Ur Leukocyte Esterase Urine RBC Urine WBC Ur Squamous Epith Cells Urine Bacteria Urine Mucus 02/27/20 02/27/20 02/27/20 22:35 22:35 23:08 WBC RBC Hgb Hct MCV MCH MCHC RDW Std Deviation RDW Coeff of [place] Plt Count MPV Immature Gran % (Auto) Neut % (Auto) Lymph % (Auto) [place] % (Auto) Eos % (Auto) Baso % (Auto) Absolute Neuts (auto) Absolute Lymphs (auto) Nucleated RBC % Differential Comment PT INR APTT Specimen Type Sample Site pH Bicarbonate Actual Total CO2 Base Excess O2 Saturation O2 % ABG pCO2 ABG pO2 Respiration Rate O2 Delivery Device Vent Mode Tidal Volume POC PEEP Sodium Potassium Chloride Carbon Dioxide Anion Gap BUN Creatinine Estim Creat Clear Calc Est GFR (MDRD) Af Amer Est GFR (MDRD) Non-Af BUN/Creatinine Ratio Glucose Lactic Acid 7.4 H* Calcium Total Bilirubin AST ALT Alkaline Phosphatase Total Creatine Kinase Troponin I B-Natriuretic Peptide 67.4 Total Protein Albumin Globulin Albumin/Globulin Ratio Triglycerides Lipase Urine Color Yellow Urine Clarity Clear Urine pH 6.0 Ur Specific [place] 1.020 Urine Protein 100 H Urine Glucose (UA) 1000 H Urine Ketones Negative Urine Occult Blood 25 H Urine Nitrite Negative Urine Bilirubin Negative Urine Urobilinogen Normal Ur Leukocyte Esterase Negative Urine RBC 0-5 SEEN Urine WBC 5-10 SEEN Ur Squamous Epith Cells 0 SEEN Urine Bacteria 0 SEEN Urine Mucus 0 SEEN 02/28/20 02/28/20 02/28/20 00:34 02:40 04:20 WBC 13.1 H RBC 4.26 Hgb 11.8 L Hct 36.5 L MCV 85.7 D MCH 27.7 MCHC 32.3 D RDW Std Deviation 42.1 RDW Coeff of [place] 13.6 Plt Count 275 MPV 10.0 Immature Gran % (Auto) 0.500 Neut % (Auto) 92.8 H Lymph % (Auto) 2.4 L [place] % (Auto) 4.1 Eos % (Auto) 0.0 Baso % (Auto) 0.2 Absolute Neuts (auto) 12.2 H Absolute Lymphs (auto) 0.32 L Nucleated RBC % 0 Differential Comment PT INR APTT Specimen Type ART Sample Site L Radial pH 7.30 L Bicarbonate Actual 20.9 L Total CO2 22 Base Excess -6 L O2 Saturation 100 H O2 % 100 ABG pCO2 43.0 ABG pO2 201 H Respiration Rate 14 O2 Delivery Device Adult Vent Vent Mode AC Tidal Volume 450 POC PEEP 5 Sodium Potassium Chloride Carbon Dioxide Anion Gap BUN Creatinine Estim Creat Clear Calc Est GFR (MDRD) Af Amer Est GFR (MDRD) Non-Af BUN/Creatinine Ratio Glucose Lactic Acid 1.6 Calcium Total Bilirubin AST ALT Alkaline Phosphatase Total Creatine Kinase Troponin I B-Natriuretic Peptide Total Protein Albumin Globulin Albumin/Globulin Ratio Triglycerides Lipase Urine Color Urine Clarity Urine pH Ur Specific [place] Urine Protein Urine Glucose (UA) Urine Ketones Urine Occult Blood Urine Nitrite Urine Bilirubin Urine Urobilinogen Ur Leukocyte Esterase Urine RBC Urine WBC Ur Squamous Epith Cells Urine Bacteria Urine Mucus 02/28/20 02/28/20 04:20 04:20 WBC RBC Hgb Hct MCV MCH MCHC RDW Std Deviation RDW Coeff of [place] Plt Count MPV Immature Gran % (Auto) Neut % (Auto) Lymph % (Auto) [place] % (Auto) Eos % (Auto) Baso % (Auto) Absolute Neuts (auto) Absolute Lymphs (auto) Nucleated RBC % Differential Comment PT INR APTT Specimen Type Sample Site pH Bicarbonate Actual Total CO2 Base Excess O2 Saturation O2 % ABG pCO2 ABG pO2 Respiration Rate O2 Delivery Device Vent Mode Tidal Volume POC PEEP Sodium 137 Potassium 4.4 Chloride 106 Carbon Dioxide 24.0 Anion Gap 7 BUN 22 H Creatinine 0.74 Estim Creat Clear Calc 62.70 Est GFR (MDRD) Af Amer 101 Est GFR (MDRD) Non-Af 84 BUN/Creatinine Ratio 29.8 H Glucose 268 H Lactic Acid Calcium 8.1 L Total Bilirubin AST ALT Alkaline Phosphatase Total Creatine Kinase 184 Troponin I B-Natriuretic Peptide Total Protein Albumin Globulin Albumin/Globulin Ratio Triglycerides 67 Lipase Urine Color Urine Clarity Urine pH Ur Specific [place] Urine Protein Urine Glucose (UA) Urine Ketones Urine Occult Blood Urine Nitrite Urine Bilirubin Urine Urobilinogen Ur Leukocyte Esterase Urine RBC Urine WBC Ur Squamous Epith Cells Urine Bacteria Urine Mucus Microbiology 02/27/20 23:18 Mucosa - Nose SARS-CoV-2 Antigen (Rapid) - Final Clinical Impression(s) from Imaging Studies Chest X-Ray 02/27/20 22:25 IMPRESSION: 1. Endotracheal tube abutting the right mainstem bronchi, may retract 3 cm to mid trachea. 2. Prominent interstitial markings and patchy airspace disease within the bilateral lung parenchyma. Electronically Signed: Christophe Hahn DO at 0:18 EST , Service support , Chest X-Ray 02/28/20 00:13 IMPRESSION: Possible mild vascular congestion with bilateral basilar atelectasis. Electronically Signed: Ximena Quiroga MD at 1:34 EST , Service support , Chest CT 02/28/20 00:56 IMPRESSION: Bilateral multifocal pneumonia with areas of superimposed atelectasis as described. Achalasia. No pleural effusion or pneumothorax. Electronically Signed: Ximena Quiroga MD at 1:42 EST , Service support , Brain CT 02/28/20 22:24 IMPRESSION: Chronic changes as described. No acute intracranial hemorrhage or space-occupying lesion. Electronically Signed: Ximena Quiroga MD at 1:38 EST , Service support , Current Medications Chlorhexidine Gluconate (Chlorhexidine 15 Ml) 15 ml PO BID BLESSING Enoxaparin Sodium (Enoxaparin 40 Mg/0.4 Ml Syringe) 40 mg SC DAILY BLESSING Fentanyl Citrate 1,000 mcg/ (Sodium Chloride) 100 mls @ 5 mls/hr CONT INF .Q20H BLESSING; Protocol Last Titration: 02/28/20 05:00 Dose: 75 mcg/hr, 7.5 mls/hr Documented by: Norepinephrine Bitartrate 8 mg (/ Sodium Chloride) 250 mls @ 9.375 mls/hr CONT INF .[id number] BLESSING; Protocol Last Titration: 02/28/20 02:45 Dose: 0 mcg/min, 0 mls/hr Documented by: Sodium Chloride () 250 mls @ 15 mls/hr IV .[id number] PRN PRN Reason: Saline Flush Last Infusion: 02/28/20 01:12 Dose: 15 mls/hr Documented by: Sodium Chloride () 250 mls @ 15 mls/hr IV .[id number] PRN PRN Reason: Additional IVPB Infusion Sodium Chloride () 250 mls @ 15 mls/hr IV .[id number] PRN PRN Reason: Saline Flush Sodium Chloride () 250 mls @ 15 mls/hr IV .[id number] PRN PRN Reason: Additional IVPB Infusion Propofol (Diprivan) 1,000 mg in 100 mls @ 4.086 mls/hr CONT INF .Q12H BLESSING; Protocol Last Titration: 02/28/20 05:01 Dose: 10 mcg/kg/min, 4.1 mls/hr Documented by: Sodium Chloride (0.9% Saline Lock 10 Ml Syringe) 10 - 40 ml IV UD PRN PRN Reason: SALINE FLUSH Last Admin: 02/28/20 03:08 Dose: 40 ml Documented by: Assessment/Plan Active and Suspected Problems Lactic acidosis (Acute) Respiratory failure (Acute) Achalasia (Acute) RECOMMENDATIONS: 1. Continue empiric antimicrobials, pending further infectious work-up. 2. Wean FiO2 and PEEP to maintain oxygen saturations at or above 90%. 3. Okay to start tube feeds today from my perspective. 4. Continue fentanyl and propofol for sedation. Goal to maintain a RASS of -1 to 1. 5. Continue Levophed and wean to maintain a mean arterial pressure at or above 65 mmHg. 6. Continue appropriate ICU prophylaxis. 7. Further swallow evaluation work-up, once the patient is able to be extubated. IMPRESSIONS: 1. Acute hypoxemic respiratory failure secondary to aspiration pneumonia The patient initially presented to the hospital after developing an acute hypoxemic respiratory event, likely secondary to acute aspiration leading to PEA cardiac arrest. The patient does have a reported history of choking, likely secondary to the achalasia noted on CT chest. The patient did have retained food product in her esophagus, which was cleared endoscopically. She will be continued on empiric antimicrobials, pending further infectious work-up. FiO2 will be weaned to maintain saturations at or above 90%. Tube feeds can be initiated today from my perspective. 2. Status post PEA cardiac arrest likely precipitated by hypoxemia induced by aspiration Continue current supportive measures as noted above. 3. Septic shock secondary to aspiration pneumonia The patient has been adequately volume resuscitated and will be continued on vasopressor support to maintain a mean arterial pressure at or above 65 mmHg. Continue antimicrobials as noted above. 4. Achalasia/esophageal dilation with retained food product The patient's retained esophageal food products were cleared endoscopically today. She will require further evaluation once extubated prior to advancing diet. 5. Hypertension/diabetes mellitus/hyperlipidemia/paroxysmal atrial fibrillation Complicates care, management, recovery and prognosis. Hold antihypertensives given tenuous hemodynamics. Start sliding scale insulin coverage. TIME: 42 minutes of critical care time, independent of procedures, was spent addressing the patient's acute hypoxemic respiratory failure, aspiration pneumonia, PEA cardiac arrest, septic shock, achalasia, esophageal dilation, review of all data and collaboration with the care team. ([id number]) [phone] [id number] Critical care first hour
--- NOTE | 2020-02-28 07:24 | PCM.PN.HOSP ---
Patient Problems: Active and Suspected Problems Lactic acidosis (Acute) Respiratory failure (Acute) Achalasia (Acute) Reason for Visit: Acute hypoxic respiratory failure Aspiration pneumonia Impacted food Achalasia Lactic acidosis Subjective: Patient is a 64-year-old lady admitted with progressive shortness of breath with significant hypoxia. Patient apparently cardiopulmonary arrest in route to the hospital CPR initiated by the squad and patient intubated in the ED and admitted to the intensive care unit imaging studies obtained on admission demonstrated suspected achalasia with food impaction. Admitted to the intensive care unit with consultation placed to both pulmonary medicine as well as general surgery Objective: GENERAL: Sedated on the vent HEENT: Atraumatic; EYES; Anicteric, Normal Conjunctiva NECK; supple, normal thyroid, RESPIRATORY: Diminished to auscultation CARDIOVASCULAR: Regular S1 S2, GI: soft, normoactive bowel sounds, : No Renal angle tenderness; EXTREMITIES: No edema, no clubbing, MUSCULOSKELETAL: no muscle waisting NEURO: On the vent SKIN; no rash Vitals/I&O's: Vital Signs Temp Pulse Resp BP Pulse Ox 99.3 F H 81 14 92/52 L 100 02/28/20 06:00 02/28/20 07:10 02/28/20 07:10 02/28/20 07:00 02/28/20 07:10 Oxygen Flow Rate (L/min) 15 Oxygen Delivery Method Mechanical Ventilator Weight: 68.1 kg Body Mass Index (BMI) 26.6 Intake and Output for Last 24 Hours 02/26/20 02/27/20 02/28/20 23:59 23:59 23:59 Intake Total 1000 / 1000 219.30 / 219.30 Output Total 600 / 600 Balance 1000 / 1000 -380.70 / -380.70 Microbiology Past 72 Hours 02/27/20 23:18 Mucosa - Nose SARS-CoV-2 Antigen (Rapid) - Final Laboratory Results 02/27/20 22:35: WBC 13.7 H, RBC 4.53, Hgb 12.6, Hct 41.0, MCV 90.5, MCH 27.8, MCHC 30.7 L, RDW Std Deviation 45.1 H, RDW Coeff of [place] 13.6, Plt Count 387, MPV 10.5, Immature Gran % (Auto) 0.800, Neut % (Auto) 45.7 L, Lymph % (Auto) 43.6 H, [place] % (Auto) 9.2, Eos % (Auto) 0.2, Baso % (Auto) 0.5, Absolute Neuts (auto) 6.3, Absolute Lymphs (auto) 5.95 H, Nucleated RBC % 0, Differential Comment SCANNED 02/27/20 22:35: PT 16.8 H, INR 1.4, APTT 30.9 02/27/20 22:35: Sodium 137, Potassium 3.9, Chloride 104, Carbon Dioxide 20.0 L, Anion Gap 13, BUN 19 H, Creatinine 1.15 H, Estim Creat Clear Calc 42.12, Est GFR (MDRD) Af Amer 61, Est GFR (MDRD) Non-Af 50 L, BUN/Creatinine Ratio 16.5, Glucose 371 H, Calcium 8.5, Total Bilirubin 0.20, AST 28, ALT 28, Alkaline Phosphatase 119 H, Troponin I 0.021, Total Protein 7.0, Albumin 3.2, Globulin 3.8, Albumin/Globulin Ratio 0.8 L, Lipase 112 02/27/20 22:35: Lactic Acid 7.4 H* 02/27/20 22:35: B-Natriuretic Peptide 67.4 02/27/20 23:08: Urine Color Yellow, Urine Clarity Clear, Urine pH 6.0, Ur Specific [place] 1.020, Urine Protein 100 H, Urine Glucose (UA) 1000 H, Urine Ketones Negative, Urine Occult Blood 25 H, Urine Nitrite Negative, Urine Bilirubin Negative, Urine Urobilinogen Normal, Ur Leukocyte Esterase Negative, Urine RBC 0-5 SEEN, Urine WBC 5-10 SEEN, Ur Squamous Epith Cells 0 SEEN, Urine Bacteria 0 SEEN, Urine Mucus 0 SEEN 02/28/20 00:34: Specimen Type ART, Sample Site L Radial, pH 7.30 L, Bicarbonate Actual 20.9 L, Total CO2 22, Base Excess -6 L, O2 Saturation 100 H, O2 % 100, ABG pCO2 43.0, ABG pO2 201 H, Respiration Rate 14, O2 Delivery Device Adult Vent, Vent Mode AC, Tidal Volume 450, POC PEEP 5 02/28/20 02:40: Lactic Acid 1.6 02/28/20 04:20: WBC 13.1 H, RBC 4.26, Hgb 11.8 L, Hct 36.5 L, MCV 85.7 D, MCH 27.7, MCHC 32.3 D, RDW Std Deviation 42.1, RDW Coeff of [place] 13.6, Plt Count 275, MPV 10.0, Immature Gran % (Auto) 0.500, Neut % (Auto) 92.8 H, Lymph % (Auto) 2.4 L, [place] % (Auto) 4.1, Eos % (Auto) 0.0, Baso % (Auto) 0.2, Absolute Neuts (auto) 12.2 H, Absolute Lymphs (auto) 0.32 L, Nucleated RBC % 0 02/28/20 04:20: Sodium 137, Potassium 4.4, Chloride 106, Carbon Dioxide 24.0, Anion Gap 7, BUN 22 H, Creatinine 0.74, Estim Creat Clear Calc 62.70, Est GFR (MDRD) Af Amer 101, Est GFR (MDRD) Non-Af 84, BUN/Creatinine Ratio 29.8 H, Glucose 268 H, Calcium 8.1 L 02/28/20 04:20: Total Creatine Kinase 184, Triglycerides 67 Current Medications Chlorhexidine Gluconate (Chlorhexidine 15 Ml) 15 ml PO BID [facility] Enoxaparin Sodium (Enoxaparin 40 Mg/0.4 Ml Syringe) 40 mg SC DAILY BLESSING Fentanyl Citrate 1,000 mcg/ (Sodium Chloride) 100 mls @ 5 mls/hr CONT INF .Q20H [facility]; Protocol Last Titration: 02/28/20 07:00 Dose: 75 mcg/hr, 7.5 mls/hr Documented by: Norepinephrine Bitartrate 8 mg (/ Sodium Chloride) 250 mls @ 9.375 mls/hr CONT INF .[id number] [facility]; Protocol Last Titration: 02/28/20 02:45 Dose: 0 mcg/min, 0 mls/hr Documented by: Sodium Chloride () 250 mls @ 15 mls/hr IV .[id number] PRN PRN Reason: Saline Flush Last Infusion: 02/28/20 01:12 Dose: 15 mls/hr Documented by: Sodium Chloride () 250 mls @ 15 mls/hr IV .[id number] PRN PRN Reason: Additional IVPB Infusion Sodium Chloride () 250 mls @ 15 mls/hr IV .[id number] PRN PRN Reason: Saline Flush Sodium Chloride () 250 mls @ 15 mls/hr IV .[id number] PRN PRN Reason: Additional IVPB Infusion Propofol (Diprivan) 1,000 mg in 100 mls @ 4.086 mls/hr CONT INF .Q12H BLESSING; Protocol Last Titration: 02/28/20 07:00 Dose: 10 mcg/kg/min, 4.1 mls/hr Documented by: Piperacillin Sod/Tazobactam (Sod 3.375 gm/ Sodium Chloride) 50 mls @ 12.5 mls/hr IV Q8 BLESSING Piperacillin Sod/Tazobactam (Sod 3.375 gm/ Sodium Chloride) 50 mls @ 100 mls/hr IV X1 ONE Stop: 02/28/20 07:29 Last Infusion: 02/28/20 07:07 Dose: Infused Documented by: Pantoprazole Sodium 40 mg/ (Sodium Chloride) 110 mls @ 330 mls/hr IV Q24 BLESSING Insulin Human Lispro (Insulin Lispro 100 Unit/Ml Insuln.Pen) 0 unit SC Q6 BLESSING; Protocol Sodium Chloride (0.9% Saline Lock 10 Ml Syringe) 10 - 40 ml IV UD PRN PRN Reason: SALINE FLUSH Last Admin: 02/28/20 03:08 Dose: 40 ml Documented by: STROKE Vital Signs/Narrative: Vital Signs Temp Pulse Resp BP Pulse Ox 02/28/20 07:10 81 14 100 02/28/20 07:00 81 14 92/52 L 100 02/28/20 06:00 99.3 F H 82 14 101/55 L 100 02/28/20 05:00 85 14 97/54 L 100 02/28/20 04:40 84 14 100 02/28/20 04:00 87 14 100/65 100 Medical Necessity - Tobacco Use Smoking Status: Unknown if ever smoked Assessment/Plan All Active Problems Lactic acidosis (Acute) Respiratory failure (Acute) Achalasia (Acute) Patient is a 64-year-old lady admitted with progressive shortness of breath with significant hypoxia. Patient apparently cardiopulmonary arrest in route to the hospital CPR initiated by the squad and patient intubated in the ED and admitted to the intensive care unit imaging studies obtained on admission demonstrated suspected achalasia with food impaction. Admitted to the intensive care unit with consultation placed to both pulmonary medicine as well as general surgery 1. Acute hypoxic respiratory failure - Cardiopulmonary arrest as a result of food impaction with subsequent aspiration. Patient was successfully resuscitated using ACLS protocol intubated in the ED and admitted to the intensive care unit. Was started on broad-spectrum antibiotic therapy 2. Cardiopulmonary arrest -Successfully resuscitated using ACLS protocol 3. Esophageal food impaction ?Suspected to be secondary to achalasia. Consult was placed to Dr. Hawthorne with general surgery who did perform bedside EGD the impacted food was advanced using the EGD scope -Patient to undergo outpatient manometry studies to confirm achalasia 4. Suspected aspiration pneumonia ?Following food impaction patient is currently intubated and started on broad-spectrum antibiotic therapy 5. Lactic acidosis ?Secondary to combination of infection as well as patient having experience cardiopulmonary arrest patient being on Metformin at home 6. Hypertension - Blood pressure in stable 7. Paroxysmal A. fib ?Rate controlled. Patient is on Xarelto at home held please on therapeutic Lovenox 8. Diabetes mellitus type 2 ?Home medications held please on Accu-Cheks before meals and at bedtime with sliding scale coverage 9. Dyslipidemia ?Patient is on statin therapy plan to resume once patient is extubated 10. DVT prophylaxis ?Therapeutic Lovenox Inpatient E&M: [id number] [facility] L3
--- NOTE | 2020-02-28 08:30 | RAD_ITS ---
STUDY: X-RAY CHEST REASON FOR EXAM: Female, 64 years old. RE-POSITIONED ETT TECHNIQUE: Single AP portable view of the chest. COMPARISON: Comparison is made with prior study dated 02/28/2020 at 12:50 AM. FINDINGS: The tip of the endotracheal tube is at 4.8 cm proximal to the jayesh. The right-sided jugular catheter is in place and is unchanged. EKG electrodes are seen. Stable mild degree of vascular congestion. Mild increased markings in the right upper lobe There is no demonstrated pleural abnormality. There is borderline cardiomegaly. Normal mediastinum and mike. Normal visualized pulmonary arteries. There is atherosclerotic calcification of the aortic arch with tortuosity. There are degenerative changes of the visualized thoracic spine. Mild dextroscoliosis. Normal visualized ribs, clavicles, and shoulders. There is no demonstrated abnormality of the visualized soft tissue structures of the upper abdomen. RAD/Chest 1 View (Portable) IMPRESSION: Vascular congestion. Mild increased markings in the right upper lobe. Follow-up is recommended. Electronically Signed: Alex Meadows, at 10:14 EST , Service support ,
--- NOTE | 2020-02-28 08:33 | PCM.CONS.GEN ---
Problem List (1) Achalasia Status: Acute Reason for Consult Date of Consultation: 02/28/20 Reason for Consultation: Retained food in the esophagus History of Present Illness: The patient is a 64 year old F Who was admitted through the emergency room yesterday evening after an arrest. I obtained history and review of symptoms through the patient's brother. The patient's brother reports that she frequently coughs and chokes during meals and she had been being treated for a possible bronchitis with antibiotics. She does not have a known history of achalasia. He does state that she has vomited undigested food before. Past Medical History Past Medical History (Chronic Problems): Chronic Problems Atrial fibrillation with RVR (Chronic) Acute bronchitis (Chronic) Hypertension (Chronic) Hyperlipidemia (Chronic) Chronic insomnia (Chronic) Diabetes mellitus, type II (Chronic) Allergies No Known Allergies Allergy (Verified 02/06/20 00:24) Home Medications: Ambulatory Orders Medication Instructions Recorded Lisinopril 40 mg PO DAILY 12/01/13 Olanzapine 10 mg PO QHS 12/01/13 metFORMIN HCl [Glucophage] 1,000 mg PO BREAKFAST 12/01/13 Albuterol Inhaler [Ventolin Hfa] 2 puff INHALATION Q4H PRN PRN #1 05/18/19 inhaler Aspirin [Aspir-Low] 81 mg PO DAILY 05/18/19 Benztropine [Cogentin] 1 mg PO BID 05/18/19 Calcium Carbonate/Vitamin D3 1 ea PO BID 05/18/19 [Calcium 600 + Vit D Tablet] Gabapentin [Neurontin] 100 mg PO TIDCM 05/18/19 Metformin HCl 500 mg PO DINNER 05/18/19 Oxybutynin [Ditropan] 10 mg PO DAILY 05/18/19 Simvastatin 10 mg PO QHS 05/18/19 Verapamil HCl [Verapamil ER] 240 mg PO BID 05/18/19 traZODone [Desyrel] 100 mg PO QHS PRN 05/18/19 Multivitamin [Daily Griffin] 1 ea PO DAILY 02/05/20 Rivaroxaban [Xarelto] 20 mg PO DAILY #30 tab 02/06/20 Meloxicam [Mobic] 15 mg PO DAILY 02/27/20 Surgical History: - - Cholecystectomy. Psychiatric History: No pertinent psych hx MUNICIPAL SERVICES MANAGER History: No pertinent MUNICIPAL SERVICES MANAGER history Lives: With Family Smoking Status: Unknown if ever smoked - *Family History Maternal History Items: - - Patient denies any market maternal or paternal family history including heart disease, diabetes, cancer. Paternal History Items: - - Patient denies any market maternal or paternal family history including heart disease, diabetes, cancer. Review of Systems Unable to obtain accurate/complete ROS d/t: Patient intubated and sedated Patient Problems: Active and Suspected Problems Lactic acidosis (Acute) Respiratory failure (Acute) - Physical Exam Vitals/I&O's: Vital Signs Temp Pulse Resp BP Pulse Ox 99.3 F H 81 14 92/52 L 100 02/28/20 06:00 02/28/20 07:10 02/28/20 07:10 02/28/20 07:00 02/28/20 07:10 Oxygen Flow Rate (L/min) 15 Oxygen Delivery Method Mechanical Ventilator Weight: 150 lb 2.157 oz Body Mass Index (BMI) 26.6 Intake and Output for Last 24 Hours 02/26/20 02/27/20 02/28/20 23:59 23:59 23:59 Intake Total 1000 / 1000 219.30 / 219.30 Output Total 600 / 600 Balance 1000 / 1000 -380.70 / -380.70 General: - - Intubated and sedated Neck: No JVD Cardiovascular: Regular rate, Regular Rhythm Abdomen: Soft, Non Tender, Non-Distended Microbiology Past 72 Hours 02/27/20 23:18 Mucosa - Nose SARS-CoV-2 Antigen (Rapid) - Final Laboratory Results 02/27/20 22:35: WBC 13.7 H, RBC 4.53, Hgb 12.6, Hct 41.0, MCV 90.5, MCH 27.8, MCHC 30.7 L, RDW Std Deviation 45.1 H, RDW Coeff of Jesica 13.6, Plt Count 387, MPV 10.5, Immature Gran % (Auto) 0.800, Neut % (Auto) 45.7 L, Lymph % (Auto) 43.6 H, [place] % (Auto) 9.2, Eos % (Auto) 0.2, Baso % (Auto) 0.5, Absolute Neuts (auto) 6.3, Absolute Lymphs (auto) 5.95 H, Nucleated RBC % 0, Differential Comment SCANNED 02/27/20 22:35: PT 16.8 H, INR 1.4, APTT 30.9 02/27/20 22:35: Sodium 137, Potassium 3.9, Chloride 104, Carbon Dioxide 20.0 L, Anion Gap 13, BUN 19 H, Creatinine 1.15 H, Estim Creat Clear Calc 42.12, Est GFR (MDRD) Af Amer 61, Est GFR (MDRD) Non-Af 50 L, BUN/Creatinine Ratio 16.5, Glucose 371 H, Calcium 8.5, Total Bilirubin 0.20, AST 28, ALT 28, Alkaline Phosphatase 119 H, Troponin I 0.021, Total Protein 7.0, Albumin 3.2, Globulin 3.8, Albumin/Globulin Ratio 0.8 L, Lipase 112 02/27/20 22:35: Lactic Acid 7.4 H* 02/27/20 22:35: B-Natriuretic Peptide 67.4 02/27/20 23:08: Urine Color Yellow, Urine Clarity Clear, Urine pH 6.0, Ur Specific [place] 1.020, Urine Protein 100 H, Urine Glucose (UA) 1000 H, Urine Ketones Negative, Urine Occult Blood 25 H, Urine Nitrite Negative, Urine Bilirubin Negative, Urine Urobilinogen Normal, Ur Leukocyte Esterase Negative, Urine RBC 0-5 SEEN, Urine WBC 5-10 SEEN, Ur Squamous Epith Cells 0 SEEN, Urine Bacteria 0 SEEN, Urine Mucus 0 SEEN 02/28/20 00:34: Specimen Type ART, Sample Site L Radial, pH 7.30 L, Bicarbonate Actual 20.9 L, Total CO2 22, Base Excess -6 L, O2 Saturation 100 H, O2 % 100, ABG pCO2 43.0, ABG pO2 201 H, Respiration Rate 14, O2 Delivery Device Adult Vent, Vent Mode AC, Tidal Volume 450, POC PEEP 5 02/28/20 02:40: Lactic Acid 1.6 02/28/20 04:20: WBC 13.1 H, RBC 4.26, Hgb 11.8 L, Hct 36.5 L, MCV 85.7 D, MCH 27.7, MCHC 32.3 D, RDW Std Deviation 42.1, RDW Coeff of [place] 13.6, Plt Count 275, MPV 10.0, Immature Gran % (Auto) 0.500, Neut % (Auto) 92.8 H, Lymph % (Auto) 2.4 L, [place] % (Auto) 4.1, Eos % (Auto) 0.0, Baso % (Auto) 0.2, Absolute Neuts (auto) 12.2 H, Absolute Lymphs (auto) 0.32 L, Nucleated RBC % 0 02/28/20 04:20: Sodium 137, Potassium 4.4, Chloride 106, Carbon Dioxide 24.0, Anion Gap 7, BUN 22 H, Creatinine 0.74, Estim Creat Clear Calc 62.70, Est GFR (MDRD) Af Amer 101, Est GFR (MDRD) Non-Af 84, BUN/Creatinine Ratio 29.8 H, Glucose 268 H, Calcium 8.1 L 02/28/20 04:20: Total Creatine Kinase 184, Triglycerides 67 Current Medications Chlorhexidine Gluconate (Chlorhexidine 15 Ml) 15 ml PO BID BLESSING Enoxaparin Sodium (Enoxaparin 40 Mg/0.4 Ml Syringe) 40 mg SC DAILY BLESSING Fentanyl Citrate 1,000 mcg/ (Sodium Chloride) 100 mls @ 5 mls/hr CONT INF .Q20H BLESSING; Protocol Last Titration: 02/28/20 07:00 Dose: 75 mcg/hr, 7.5 mls/hr Documented by: Sodium Chloride () 250 mls @ 15 mls/hr IV .[id number] PRN PRN Reason: Saline Flush Last Infusion: 02/28/20 01:12 Dose: 15 mls/hr Documented by: Sodium Chloride () 250 mls @ 15 mls/hr IV .[id number] PRN PRN Reason: Additional IVPB Infusion Sodium Chloride () 250 mls @ 15 mls/hr IV .[id number] PRN PRN Reason: Saline Flush Sodium Chloride () 250 mls @ 15 mls/hr IV .[id number] PRN PRN Reason: Additional IVPB Infusion Propofol (Diprivan) 1,000 mg in 100 mls @ 4.086 mls/hr CONT INF .Q12H [facility]; Protocol Last Titration: 02/28/20 07:00 Dose: 10 mcg/kg/min, 4.1 mls/hr Documented by: Piperacillin Sod/Tazobactam (Sod 3.375 gm/ Sodium Chloride) 50 mls @ 12.5 mls/hr IV Q8 BLESSING Pantoprazole Sodium 40 mg/ (Sodium Chloride) 110 mls @ 330 mls/hr IV Q24 BLESSING Insulin Human Lispro (Insulin Lispro 100 Unit/Ml Insuln.Pen) 0 unit SC Q6 BLESSING; Protocol Sodium Chloride (0.9% Saline Lock 10 Ml Syringe) 10 - 40 ml IV UD PRN PRN Reason: SALINE FLUSH Last Admin: 02/28/20 03:08 Dose: 40 ml Documented by: Assessment/Plan All Active Problems Lactic acidosis (Acute) Respiratory failure (Acute) Achalasia (Acute) 64-year-old female with possible achalasia and esophageal obstruction 1. The patient was admitted to the ICU after being intubated and sedated in the ER after short course of CPR. 2. I reviewed the patient's CT scan it does show a bird's beak dilated esophagus which tightens at the area of the LES. This was suggestive of achalasia. The patient's brother reports that she has been not able to swallow food for some time and usually chokes while eating. The patient CT scan also shows likely aspiration pneumonia. 3. I discussed EGD with the patient's brother. I discussed trying to ensure that there was no obstruction at the level of the LES. I will attempt an EGD to clear the obstructing bolus and food contents of the esophagus in the ICU at the bedside this morning. I discussed it with the fence installer helper as well. The patient should also be started on a calcium channel alli. If possible I will place an OG tube under direct visualization. I discussed the increased risk of perforation and bleeding due to the achalasia with the patient's brother and he does understand these risks. I explained that any injury to the patient's GI tract would result in transfer to a tertiary care center and possible surgery and the patient agrees and is willing to allow us to proceed with EGD. Milton Hawthorne MD Pager: [facility] [address] [place] [address], [address] [place] [address] Office:
[2020-02-28] MEDS: Enoxaparin 40 MG/0.4 ML Syringe SC (09:07)
[2020-02-28] MEDS: Chlorhexidine 15 ML PO ×2 (09:07→21:06)
[2020-02-28] MEDS: Glucagon 1 MG/ML Syringe IV (09:39)
--- NOTE | 2020-02-28 10:48 | OP.CCLET_ITS ---
02/28/2020 Jose Brown [address] [place] [address] Re : Upper GI endoscopy procedure for Arelis Mendoza Dear Dr. Brown This procedure was performed on Friday, February 28, 2020. My impressions and recommendations are as follows: Impressions : - Food in the lower third of the esophagus. - Normal stomach. - No specimens collected. Recommendations : - Observe patient in GI recovery unit. - Continue present medications. My findings are described in the full procedure note, which is enclosed. If I can be of further assistance, please feel free to contact me at Doctor phone number(s): , Work: . Sincerely, Milton Hawthorne MD 02/28/2020 10:48:23 AM This report has been signed electronically.
--- NOTE | 2020-02-28 10:48 | OP.EGD_ITS ---
Patient Name: Arelis Mendoza Procedure Date: 02/28/2020 9:20 AM Date of : 1955 Age: 64 Procedure: Upper GI endoscopy Indications: Foreign body in the esophagus Providers: Milton Hawthorne MD Complications: No immediate complications. Estimated blood loss: None. Procedure: Pre-Anesthesia Assessment: - Prior to the procedure, a History and Physical was performed, and patient medications and allergies were reviewed. The patient's tolerance of previous anesthesia was also reviewed. The risks and benefits of the procedure and the sedation options and risks were discussed with the patient. All questions were answered, and informed consent was obtained. Prior Anticoagulants: The patient has taken no previous anticoagulant or antiplatelet agents. After reviewing the risks and benefits, the patient was deemed in satisfactory condition to undergo the procedure. After obtaining informed consent, the endoscope was passed under direct vision. Throughout the procedure, the patient's blood pressure, pulse, and oxygen saturations were monitored continuously. The Endoscope was introduced through the mouth, and advanced to the second part of duodenum. Scope In: 9:44:20 AM Scope Out: 9:50:35 AM Total Procedure Duration Time 0 hours 6 minutes 15 seconds Findings: Food was found in the lower third of the esophagus. The patient was given glucagon and Succinylcholine as she was already intubated. This relaxed the GE junction and impacted food was advanced into stomach with scope. GE junction appeared patent with no stricture. NG was then lubricated and placed into the mouth and into the stomach under direct visualization. The tip of the tube was placed into the antrum and the scope was removed leaving the OG tube in place. The stomach was normal. Impression: - Food in the lower third of the esophagus. - Normal stomach. - No specimens collected. Recommendation: - Observe patient in GI recovery unit. - Continue present medications. Procedure Code(s): --- Professional --- 87956, Esophagogastroduodenoscopy, flexible, transoral; diagnostic, including collection of specimen(s) by brushing or washing, when performed (separate procedure) Diagnosis Code(s): --- Professional --- T18.128A, Food in esophagus causing other injury, initial encounter T18.108A, Unspecified foreign body in esophagus causing other injury, initial encounter CPT copyright 2017 [employer]. All rights reserved. The codes documented in this report are preliminary and upon crown wheel assembler review may be revised to meet current compliance requirements. Milton Hawthorne MD 02/28/2020 10:48:23 AM This report has been signed electronically. Number of Addenda: 0 Note Initiated On: 02/28/2020 9:20 AM
--- NOTE | 2020-02-28 10:49 | PN_ITS ---
Progress Note I performed an EGD at the bedside with Dr. Enciso present. The patient was already intubated and sedated and the patient was given glucagon and s uccinylcholine. This allowed the GE junction to relax and using EGD scope the food bolus that was impacted was able to be advanced. There is no stricture or tightness at the GE junction. OG tube was placed under direct visualization into the stomach. The patient can be started on tube feeds from my perspective and once she is off pressors and her blood pressure has stabilized she may be started on a calcium channel alli and she will require a manometry in the future to check for achalasia. Milton Hawthorne MD Pager: [facility] [address] [place] [address], [address] [place] [address] Office: [facility] Vital Signs/Narrative: Vital Signs Temp Pulse Resp BP Pulse Ox 02/28/20 10:00 82 14 118/65 100 02/28/20 09:00 88 14 87/55 L 100 02/28/20 08:00 99.7 F H 82 14 129/51 H 99 02/28/20 07:10 81 14 100 02/28/20 07:00 81 14 92/52 L 100
[2020-02-28 11:21] LABS: Bedside Glucose 200 mg/dL (70-110)
[2020-02-28] MEDS: Insulin Lispro 100 UNIT/ML INSULN.PEN SC (11:28)
[2020-02-28] MEDS: Lactated Ringers 1,000 ML 999 ML IV (12:20)
--- NOTE | 2020-02-28 12:51 | NT.THERAPY_ITS ---
Nutrition Therapy Report - History Nutrition Services has been consulted to:: Manage enteral nutrition Current diet / nutrition support order:: NPO - Anthropometric Measurements Height:: 5 ft 3 in Weight:: 68.1 kg Body Mass Index (BMI):: 26.6 - Relevant Labs Relevant Labs:: WBC 13.1 K/mm3 (4.4-11.0) H 02/28/20 04:20 Hgb 11.8 g/dL (12.0-15.0) L 02/28/20 04:20 Hct 36.5 % (37-47) L 02/28/20 04:20 MCHC 30.7 g/dL (32-36) L 02/27/20 22:35 RDW Std Deviation 45.1 fl (35.1-43.9) H 02/27/20 22:35 Neut % (Auto) 92.8 % (47-70) H 02/28/20 04:20 Lymph % (Auto) 2.4 % (19-41) L 02/28/20 04:20 Absolute Neuts (auto) 12.2 X10^3/uL (2.0-7.7) H 02/28/20 04:20 Absolute Lymphs (auto) 0.32 X10^3/uL (0.83-4.51) L 02/28/20 04:20 PT 16.8 SECONDS (11.7-14.9) H 02/27/20 22:35 Carbon Dioxide 20.0 mmol/L (21.0-32.0) L 02/27/20 22:35 BUN 22 mg/dL (7-18) H 02/28/20 04:20 Creatinine 1.15 mg/dL (0.55-1.02) H 02/27/20 22:35 Est GFR (MDRD) Non-Af 50 mL/min (>60) L 02/27/20 22:35 BUN/Creatinine Ratio 29.8 RATIO (10-20) H 02/28/20 04:20 Glucose 268 mg/dL (74-106) H 02/28/20 04:20 Lactic Acid 7.4 mmol/L (0.4-1.9) H* 02/27/20 22:35 Calcium 8.1 mg/dL (8.5-10.1) L 02/28/20 04:20 Alkaline Phosphatase 119 U/L (45-117) H 02/27/20 22:35 Albumin/Globulin Ratio 0.8 RATIO (0.9-2.4) L 02/27/20 22:35 - Assessment Food / Nutrition-Related History:: Unable to interview pt at time of assessment. Intubated. Information gathered from EMR. Per family report, pt was eating prior to resp. failure. OG unable to be placed during intubation d/t esophageal blo ckage. Dr. Hawthorne performed EGD this AM and food blockage was advanced to stomach. OGT now in place. Per elver Montano to start enteral nutrition support this date. Admitted 02/06/20 w/ wt of 148.8# and CBW 150.1# suggesting no acute wt loss. Unable to interview pt at time of assessment. Intubated. Information gathered from EMR. Per family report, pt was eating prior to resp. failure. OG unable to be placed during intubation d/t esophageal blockage. Dr. Hawthorne performed EGD this AM and food blockage was advanced to stomach. OGT now in place. Per elver Montano to start enteral nutrition support this date. Admitted 02/06/20 w/ wt of 148.8# and CBW 150.1# suggesting no acute wt loss. - Nutrition Diagnosis Problem / Etiology / Signs & Symptoms (PES):: Inadequate oral intake related to resp. failure, achalasia as evidenced by NPO status. - Nutrition Intervention Nutrition Prescription:: [id number] calories, 80-100 g protein - Food / Nutrient Delivery Interventions Summary of nutrition intervention:: Will order enteral nutrition support, see below. Nutrition support ordered as / adjusted to:: via OGT- Vital AF 1.2 at goal rate of 55mL/hour w/ 100mL H2O flush every 4 hours to provide 1584 calories, 99 g protein, and 1670mL total fluid/day. Would start at 15mL/hour and increase by 10mL every 8 hours as pt tolerates until goal rate achieved. - MNT Monitoring Further MNT monitoring and evaluation required?: Yes MNT Follow-up in:: 1-2 days
--- NOTE | 2020-02-28 14:55 | CASEMGMT ---
RN CM Note: assessment deferred for today. Patient unable to participate in assessment. King JOVELN RN ACM
[2020-02-28] MEDS: Vital AF 1.2 Cal Liquid 1,000 ML 55 ML GT (15:26)
[2020-02-28 18:11] LABS: Bedside Glucose 106 mg/dL (70-110)
[2020-02-28] MEDS: Acetaminophen 650 MG/20 ML UDC GT (22:09)
--- NOTE | 2020-02-28 22:24 | CT_ITS ---
STUDY: CT BRAIN WITHOUT CONTRAST REASON FOR EXAM: Female, 64 years old. MENTAL STATUS CHANGES, RESPIRATORY ARREST, CODED ON WAY TO ED, INTUBATED, RECENT BRONCHITIS, DIAB, HTN, A-FIB RADIATION DOSAGE (If Supplied By Facility): CTDIvol = ( 44.99 ) mGy, DLP = ( 829.85 ) mGycm TECHNIQUE: Transaxial CT imaging of the brain was performed without administration of intravenous contrast material. Individualized dose optimization techniques were used for this CT. COMPARISON: 12/14/2017. FINDINGS: Normal soft tissue structures. Normal calvarium. There is mild to moderate cerebral atrophy with widening of the extra-axial spaces and ventricular dilatation. There are areas of decreased attenuation within the white matter tracts of the supratentorial brain, consistent with microvascular disease changes. Normal basal ganglia and thalami. Normal brainstem. Normal cerebellum. There is no intracranial hemorrhage. There are no findings of an acute ischemic infarction. Normal visualized paranasal sinuses. CT/Brain/Head without Contrast IMPRESSION: Chronic changes as described. No acute intracranial hemorrhage or space-occupying lesion. Electronically Signed: Ximena Quiroga MD at 1:38 EST , Service support ,
[2020-02-29] VITALS (35 sets, daily range): BP systolic 95–156; BP diastolic 47–72; PULSE 51–121; RESP 14–19; TEMP 37.5–38.4; O2SAT 25–987
[2020-02-29 02:16] LABS: Bedside Glucose 135 mg/dL (70-110)
[2020-02-29] MEDS: Propofol 10MG/Ml 1,000 MG/100 ML Bottle 6.1 MG CONT INF (02:53)
--- NOTE | 2020-02-29 04:56 | NURSING ---
0430- pt became restless, thrashing legs in bed, attempting to reach for ETT, HR up to 130s, RR 30s, failed vent weaning- restarted fentanyl, propofol, and tube feed
[2020-02-29] MEDS: TITRATION PARAMETER CHANGE 1 EACH IV (05:49)
[2020-02-29 06:39] LABS: Absolute Lymphocyte Count 1.36 X10^3/uL (0.83-4.51); Basophil# 0.04 X10^3/uL; Basophil% 0.4 % (0-1); Eosinophil# 0.01 X10^3/uL; Eosinophils% 0.1 % (0-5); Hemoglobin 10.7 g/dL (12.0-15.0); Lymphocyte # 1.36 X10^3/ul (4.0); Lymphocyte % 14.5 % (19-41); Mean Corp Hgb Conc 32.4 g/dL (32-36); Mean Corpuscular Hgb 27.9 pg (27.0-32.0); Mean Corpuscular Volume 86.2 fL (81-99); Mean Platelet Vol. 10.6 fl (6.2-12.0); Monocyte# 0.92 X10^3/uL; Monocyte% 9.8 % (0-10); NRBC Flagged by Analyzer 0 % (0-5); Neutrophil # 6.99 X10^3/uL (2.7-7.7); Neutrophil % 74.9 % (47-70); Platelet Count 285 K/mm3 (150-450); RBC Distribution Width CV 14.1 % (11.6-14.6); RBC Distribution Width SD 43.4 fl (35.1-43.9); Red Blood Count 3.83 M/mm3 (4.2-5.4); White Blood Count 9.4 K/mm3 (4.4-11.0)
[2020-02-29 06:51] LABS: Anion Gap 4 (5-15); BUN 27 mg/dL (7-18); BUN/Creat Ratio 39.8 RATIO (10-20); Calcium,Total 7.9 mg/dL (8.5-10.1); Chloride 112 mmol/L (98-107); Creatinine, Serum 0.68 mg/dL (0.55-1.02); EST Glomerular Filtration Rate 92 mL/min (>60); Est Glom Filt Rate - Afr Amer 112 mL/min (>60); Estimated Creatinine Clearance 68.23 ml/min; Glucose 137 mg/dL (74-106); Potassium 4.1 mmol/L (3.5-5.1); Sodium Level 141 mmol/L (136-145)
[2020-02-29 07:15] LABS: Bedside Glucose 140 mg/dL (70-110)
--- NOTE | 2020-02-29 07:33 | PN_ITS ---
Patient Problems: Active and Suspected Problems Lactic acidosis (Acute) Respiratory failure (Acute) Achalasia (Acute) Reason for Visit: Acute hypoxic respiratory failure Aspiration pneumonia Impacted food Achalasia Lactic acidosis Subjective: Patient remains on the vent. Attempts at weaning this a.m. failed Precedex subsequently added to patient sedation Objective: GENERAL: Sedated on the vent HEENT: Atraumatic; EYES; Anicteric, Normal Conjunctiva NECK; supple, normal thyroid, RESPIRATORY: Diminished to auscultation CARDIOVASCULAR: Regular S1 S2, GI: soft, normoactive bowel sounds, : No Renal angle tenderness; EXTREMITIES: No edema, no clubbing, MUSCULOSKELETAL: no muscle waisting NEURO: On the vent SKIN; no rash Vitals/I&O's: Vital Signs Temp Pulse Resp BP Pulse Ox 100.7 F H 80 14 131/62 H 98 02/29/20 06:00 02/29/20 07:00 02/29/20 07:00 02/29/20 07:00 02/29/20 07:00 Oxygen Flow Rate (L/min) 15 Oxygen Delivery Method Mechanical Ventilator Weight: 68.8 kg Body Mass Index (BMI) 26.6 Intake and Output for Last 24 Hours 02/27/20 02/28/20 02/29/20 23:59 23:59 23:59 Intake Total 1000 / 1000 2450.41 / 2713.21 770.71 / 770.71 Output Total 1055 / 1085 230 / 230 Balance 1000 / 1000 1395.41 / 1628.21 540.71 / 540.71 Microbiology Past 72 Hours 02/28/20 04:40 Sputum, Induced/Lukens Gram Stain - Final 02/27/20 23:18 Mucosa - Nose SARS-CoV-2 Antigen (Rapid) - Final Laboratory Results 02/28/20 11:12: POC Glucose 200 H 02/28/20 17:55: POC Glucose 106 02/28/20 23:51: POC Glucose 135 H 02/29/20 04:10: WBC 9.4, RBC 3.83 L, Hgb 10.7 L, Hct 33.0 L, MCV 86.2, MCH 27.9, MCHC 32.4, RDW Std Deviation 43.4, RDW Coeff of Jesica 14.1, Plt Count 285, MPV 10.6, Immature Gran % (Auto) 0.300, Neut % (Auto) 74.9 H, Lymph % (Auto) 14.5 L, [place] % (Auto) 9.8, Eos % (Auto) 0.1, Baso % (Auto) 0.4, Absolute Neuts (auto) 7.0, Absolute Lymphs (auto) 1.36, Nucleated RBC % 0 02/29/20 04:10: Sodium 141, Potassium 4.1, Chloride 112 H, Carbon Dioxide 25.0, Anion Gap 4 L, BUN 27 H, Creatinine 0.68, Estim Creat Clear Calc 68.23, Est GFR (MDRD) Af Amer 112, Est GFR (MDRD) Non-Af 92, BUN/Creatinine Ratio 39.8 H, Glucose 137 H, Calcium 7.9 L 02/29/20 05:08: POC Glucose 140 H Current Medications Acetaminophen (Acetaminophen 650 Mg/20 Ml Udc) 650 mg GT Q6H PRN PRN PRN Reason: FEVER Last Admin: 02/28/20 22:09 Dose: 650 mg Documented by: Chlorhexidine Gluconate (Chlorhexidine 15 Ml) 15 ml PO BID BLESSING Last Admin: 02/28/20 21:06 Dose: 15 ml Documented by: Enoxaparin Sodium (Enoxaparin 40 Mg/0.4 Ml Syringe) 40 mg SC DAILY [facility] Last Admin: 02/28/20 09:07 Dose: 40 mg Documented by: Fentanyl Citrate 1,000 mcg/ (Sodium Chloride) 100 mls @ 5 mls/hr CONT INF .Q20H BLESSING; Protocol Last Titration: 02/29/20 07:12 Dose: 100 mcg/hr, 10 mls/hr Documented by: Sodium Chloride () 250 mls @ 15 mls/hr IV .[id number] PRN PRN Reason: Saline Flush Last Infusion: 02/28/20 14:00 Dose: 0 mls/hr Documented by: Sodium Chloride () 250 mls @ 15 mls/hr IV .[id number] PRN PRN Reason: Additional IVPB Infusion Sodium Chloride () 250 mls @ 15 mls/hr IV .[id number] PRN PRN Reason: Saline Flush Sodium Chloride () 250 mls @ 15 mls/hr IV .[id number] PRN PRN Reason: Additional IVPB Infusion Propofol (Diprivan) 1,000 mg in 100 mls @ 4.128 mls/hr CONT INF .Q12H BLESSING; Protocol Last Titration: 02/29/20 07:00 Dose: 15 mcg/kg/min, 6.2 mls/hr Documented by: Piperacillin Sod/Tazobactam (Sod 3.375 gm/ Sodium Chloride) 50 mls @ 12.5 mls/hr IV Q8 BLESSING Last Admin: 02/29/20 05:07 Dose: 12.5 mls/hr Documented by: Pantoprazole Sodium 40 mg/ (Sodium Chloride) 110 mls @ 330 mls/hr IV Q24 BLESSING Last Infusion: 02/28/20 09:26 Dose: Infused Documented by: Enteral Nutritional Formula (Vital Af 1.2 Hermes Liquid) 1,000 mls @ 55 mls/hr GT .[id number] BLESSING Last Admin: 02/29/20 07:00 Dose: Not Given Documented by: Norepinephrine Bitartrate 8 mg (/ Sodium Chloride) 250 mls @ 9.375 mls/hr CONT INF .[id number] BLESSING; Protocol Last Titration: 02/29/20 07:00 Dose: 2.5 mcg/min, 4.7 mls/hr Documented by: Dexmedetomidine HCl 400 mcg/ (Sodium Chloride) 100 mls @ 8.6 mls/hr CONT INF .[id number] [facility]; Protocol Insulin Human Lispro (Insulin Lispro 100 Unit/Ml Insuln.Pen) 0 unit SC Q6 BLESSING; Protocol Last Admin: 02/29/20 05:08 Dose: Not Given Documented by: Nystatin (Nystatin Powder 15gm Bottle) 1 applic TOPICAL TID BLESSING; Protocol Sodium Chloride (0.9% Saline Lock 10 Ml Syringe) 10 - 40 ml IV UD PRN PRN Reason: SALINE FLUSH Last Admin: 02/28/20 13:39 Dose: 10 ml Documented by: STROKE Vital Signs/Narrative: Vital Signs Temp Pulse Resp BP Pulse Ox 02/29/20 07:00 80 14 131/62 H 98 02/29/20 06:55 82 14 99 02/29/20 06:00 100.7 F H 68 14 100/54 L 98 02/29/20 05:00 100.9 F H 71 14 97/57 L 96 02/29/20 04:00 101.1 F H 78 19 H 97/47 L 96 Medical Necessity - Tobacco Use Smoking Status: Unknown if ever smoked Assessment/Plan All Active Problems Lactic acidosis (Acute) Respiratory failure (Acute) Achalasia (Acute) Patient is a 64-year-old lady admitted with progressive shortness of breath with significant hypoxia. Patient apparently cardiopulmonary arrest in route to the hospital CPR initiated by the squad and patient intubated in the ED and admitted to the intensive care unit imaging studies obtained on admission demonstrated suspected achalasia with food impaction. Admitted to the intensive care unit with consultation placed to both pulmonary medicine as well as general surgery 1. Acute hypoxic respiratory failure - Cardiopulmonary arrest as a result of food impaction with subsequent aspiration. Patient was successfully resuscitated using ACLS protocol intubated in the ED and admitted to the intensive care unit. Was started on broad- spectrum antibiotic therapy -02/29/2020 patient remains on the vent. Attempts at weaning this a.m. failed Precedex subsequently added to patient sedation 2. Cardiopulmonary arrest -Successfully resuscitated using ACLS protocol 3. Esophageal food impaction ?Suspected to be secondary to achalasia. Consult was placed to Dr. Hawthorne with general surgery who did perform bedside EGD the impacted food was advanced using the EGD scope -Patient to undergo outpatient manometry studies to confirm achalasia 4. Suspected aspiration pneumonia ?Following food impaction patient is currently intubated and started on broad- spectrum antibiotic therapy 5. Lactic acidosis ?Secondary to combination of infection as well as patient having experience cardiopulmonary arrest patient being on Metformin at home 6. Hypertension - Blood pressure in stable 7. Paroxysmal A. fib ?Rate controlled. Patient is on Xarelto at home held please on therapeutic Lovenox 8. Diabetes mellitus type 2 ?Home medications held please on Accu-Cheks before meals and at bedtime with sliding scale coverage 9. Dyslipidemia ?Patient is on statin therapy plan to resume once patient is extubated 10. DVT prophylaxis ?Therapeutic Lovenox Inpatient E&M: [id number] [facility] L3
--- NOTE | 2020-02-29 07:34 | PN_ITS ---
Subjective: The patient was seen and examined at the bedside this morning. Events from the last 24 hours have been reviewed. The patient is currently afebrile, hemodynamically stable and maintaining appropriate oxygen saturations on assist control mode of mechanical ventilation with an FiO2 requirement of 25%. The patient failed her spontaneous breathing trial this morning. She remains on low-dose Levophed to maintain hemodynamic stability. She is currently sedated on both propofol and fentanyl. She is currently tolerating tube feeds. Objective: The patient's most recent lab work, culture data and imaging studies have all been personally reviewed. Coronavirus rapid antigen test was negative. Blood and sputum cultures are pending. General: - - Remains intubated, sedated and mechanically ventilated. HEENT: Atraumatic, PERRLA, Normocephalic Oral: No Gingival or Mucosal Lesions/ Ulcerations, - - Endotracheal and OG tubes in place Neck: Supple, No Nodes, Trachea Midline Lungs: No rhonchi, No wheeze, No rales, Diminished Cardiovascular: Regular rate, Regular Rhythm Abdomen: Bowel Sounds Present, Soft, Non Tender Extremities: No clubbing, No cyanosis, No edema Skin: No breakdown Musculoskeletal: No Tenderness to Palpation of Joints or Extremities Lymphatic: No Cervical, Supraclavicular, or Inguinal Adenopathy Neurological: - - No focal neurological deficits. Currently sedated on the ventilator. Able to follow some commands. Vital Signs Temp Pulse Resp BP Pulse Ox 100.7 F H 80 14 131/62 H 98 02/29/20 06:00 02/29/20 07:00 02/29/20 07:00 02/29/20 07:00 02/29/20 07:00 Oxygen Flow Rate (L/min) 15 Oxygen Delivery Method Mechanical Ventilator Weight: 151 lb 10.848 oz Body Mass Index (BMI) 26.6 Intake and Output for Last 24 Hours 02/27/20 02/28/20 02/29/20 23:59 23:59 23:59 Intake Total 1000 / 1000 2450.41 / 2713.21 770.71 / 770.71 Output Total 1055 / 1085 230 / 230 Balance 1000 / 1000 1395.41 / 1628.21 540.71 / 540.71 Labs (Last 48 Hours) 02/27/20 02/27/20 02/27/20 22:35 22:35 22:35 WBC 13.7 H RBC 4.53 Hgb 12.6 Hct 41.0 MCV 90.5 MCH 27.8 MCHC 30.7 L RDW Std Deviation 45.1 H RDW Coeff of Jesica 13.6 Plt Count 387 MPV 10.5 Immature Gran % (Auto) 0.800 Neut % (Auto) 45.7 L Lymph % (Auto) 43.6 H [place] % (Auto) 9.2 Eos % (Auto) 0.2 Baso % (Auto) 0.5 Absolute Neuts (auto) 6.3 Absolute Lymphs (auto) 5.95 H Nucleated RBC % 0 Differential Comment SCANNED PT 16.8 H INR 1.4 APTT 30.9 Specimen Type Sample Site pH Bicarbonate Actual Total CO2 Base Excess O2 Saturation O2 % ABG pCO2 ABG pO2 Respiration Rate O2 Delivery Device Vent Mode Tidal Volume POC PEEP Sodium 137 Potassium 3.9 Chloride 104 Carbon Dioxide 20.0 L Anion Gap 13 BUN 19 H Creatinine 1.15 H Estim Creat Clear Calc 42.12 Est GFR (MDRD) Af Amer 61 Est GFR (MDRD) Non-Af 50 L BUN/Creatinine Ratio 16.5 Glucose 371 H Lactic Acid Calcium 8.5 Total Bilirubin 0.20 AST 28 ALT 28 Alkaline Phosphatase 119 H Total Creatine Kinase Troponin I 0.021 B-Natriuretic Peptide Total Protein 7.0 Albumin 3.2 Globulin 3.8 Albumin/Globulin Ratio 0.8 L Triglycerides Lipase 112 Urine Color Urine Clarity Urine pH Ur Specific Fletcher Urine Protein Urine Glucose (UA) Urine Ketones Urine Occult Blood Urine Nitrite Urine Bilirubin Urine Urobilinogen Ur Leukocyte Esterase Urine RBC Urine WBC Ur Squamous Epith Cells Urine Bacteria Urine Mucus POC Glucose 02/27/20 02/27/20 02/27/20 22:35 22:35 23:08 WBC RBC Hgb Hct MCV MCH MCHC RDW Std Deviation RDW Coeff of Jesica Plt Count MPV Immature Gran % (Auto) Neut % (Auto) Lymph % (Auto) [place] % (Auto) Eos % (Auto) Baso % (Auto) Absolute Neuts (auto) Absolute Lymphs (auto) Nucleated RBC % Differential Comment PT INR APTT Specimen Type Sample Site pH Bicarbonate Actual Total CO2 Base Excess O2 Saturation O2 % ABG pCO2 ABG pO2 Respiration Rate O2 Delivery Device Vent Mode Tidal Volume POC PEEP Sodium Potassium Chloride Carbon Dioxide Anion Gap BUN Creatinine Estim Creat Clear Calc Est GFR (MDRD) Af Amer Est GFR (MDRD) Non-Af BUN/Creatinine Ratio Glucose Lactic Acid 7.4 H* Calcium Total Bilirubin AST ALT Alkaline Phosphatase Total Creatine Kinase Troponin I B-Natriuretic Peptide 67.4 Total Protein Albumin Globulin Albumin/Globulin Ratio Triglycerides Lipase Urine Color Yellow Urine Clarity Clear Urine pH 6.0 Ur Specific [place] 1.020 Urine Protein 100 H Urine Glucose (UA) 1000 H Urine Ketones Negative Urine Occult Blood 25 H Urine Nitrite Negative Urine Bilirubin Negative Urine Urobilinogen Normal Ur Leukocyte Esterase Negative Urine RBC 0-5 SEEN Urine WBC 5-10 SEEN Ur Squamous Epith Cells 0 SEEN Urine Bacteria 0 SEEN Urine Mucus 0 SEEN POC Glucose 02/28/20 02/28/20 02/28/20 00:34 02:40 04:20 WBC 13.1 H RBC 4.26 Hgb 11.8 L Hct 36.5 L MCV 85.7 D MCH 27.7 MCHC 32.3 D RDW Std Deviation 42.1 RDW Coeff of Jes[place] 13.6 Plt Count 275 MPV 10.0 Immature Gran % (Auto) 0.500 Neut % (Auto) 92.8 H Lymph % (Auto) 2.4 L [place] % (Auto) 4.1 Eos % (Auto) 0.0 Baso % (Auto) 0.2 Absolute Neuts (auto) 12.2 H Absolute Lymphs (auto) 0.32 L Nucleated RBC % 0 Differential Comment PT INR APTT Specimen Type ART Sample Site L Radial pH 7.30 L Bicarbonate Actual 20.9 L Total CO2 22 Base Excess -6 L O2 Saturation 100 H O2 % 100 ABG pCO2 43.0 ABG pO2 201 H Respiration Rate 14 O2 Delivery Device Adult Vent Vent Mode AC Tidal Volume 450 POC PEEP 5 Sodium Potassium Chloride Carbon Dioxide Anion Gap BUN Creatinine Estim Creat Clear Calc Est GFR (MDRD) Af Amer Est GFR (MDRD) Non-Af BUN/Creatinine Ratio Glucose Lactic Acid 1.6 Calcium Total Bilirubin AST ALT Alkaline Phosphatase Total Creatine Kinase Troponin I B-Natriuretic Peptide Total Protein Albumin Globulin Albumin/Globulin Ratio Triglycerides Lipase Urine Color Urine Clarity Urine pH Ur Specific [place] Urine Protein Urine Glucose (UA) Urine Ketones Urine Occult Blood Urine Nitrite Urine Bilirubin Urine Urobilinogen Ur Leukocyte Esterase Urine RBC Urine WBC Ur Squamous Epith Cells Urine Bacteria Urine Mucus POC Glucose 02/28/20 02/28/20 02/28/20 04:20 04:20 11:12 WBC RBC Hgb Hct MCV MCH MCHC RDW Std Deviation RDW Coeff of Jesica Plt Count MPV Immature Gran % (Auto) Neut % (Auto) Lymph % (Auto) [place] % (Auto) Eos % (Auto) Baso % (Auto) Absolute Neuts (auto) Absolute Lymphs (auto) Nucleated RBC % Differential Comment PT INR APTT Specimen Type Sample Site pH Bicarbonate Actual Total CO2 Base Excess O2 Saturation O2 % ABG pCO2 ABG pO2 Respiration Rate O2 Delivery Device Vent Mode Tidal Volume POC PEEP Sodium 137 Potassium 4.4 Chloride 106 Carbon Dioxide 24.0 Anion Gap 7 BUN 22 H Creatinine 0.74 Estim Creat Clear Calc 62.70 Est GFR (MDRD) Af Amer 101 Est GFR (MDRD) Non-Af 84 BUN/Creatinine Ratio 29.8 H Glucose 268 H Lactic Acid Calcium 8.1 L Total Bilirubin AST ALT Alkaline Phosphatase Total Creatine Kinase 184 Troponin I B-Natriuretic Peptide Total Protein Albumin Globulin Albumin/Globulin Ratio Triglycerides 67 Lipase Urine Color Urine Clarity Urine pH Ur Specific [place] Urine Protein Urine Glucose (UA) Urine Ketones Urine Occult Blood Urine Nitrite Urine Bilirubin Urine Urobilinogen Ur Leukocyte Esterase Urine RBC Urine WBC Ur Squamous Epith Cells Urine Bacteria Urine Mucus POC Glucose 200 H 02/28/20 02/28/20 02/29/20 17:55 23:51 04:10 WBC 9.4 RBC 3.83 L Hgb 10.7 L Hct 33.0 L MCV 86.2 MCH 27.9 MCHC 32.4 RDW Std Deviation 43.4 RDW Coeff of Jes[place] 14.1 Plt Count 285 MPV 10.6 Immature Gran % (Auto) 0.300 Neut % (Auto) 74.9 H Lymph % (Auto) 14.5 L [place] % (Auto) 9.8 Eos % (Auto) 0.1 Baso % (Auto) 0.4 Absolute Neuts (auto) 7.0 Absolute Lymphs (auto) 1.36 Nucleated RBC % 0 Differential Comment PT INR APTT Specimen Type Sample Site pH Bicarbonate Actual Total CO2 Base Excess O2 Saturation O2 % ABG pCO2 ABG pO2 Respiration Rate O2 Delivery Device Vent Mode Tidal Volume POC PEEP Sodium Potassium Chloride Carbon Dioxide Anion Gap BUN Creatinine Estim Creat Clear Calc Est GFR (MDRD) Af Amer Est GFR (MDRD) Non-Af BUN/Creatinine Ratio Glucose Lactic Acid Calcium Total Bilirubin AST ALT Alkaline Phosphatase Total Creatine Kinase Troponin I B-Natriuretic Peptide Total Protein Albumin Globulin Albumin/Globulin Ratio Triglycerides Lipase Urine Color Urine Clarity Urine pH Ur Specific [place] Urine Protein Urine Glucose (UA) Urine Ketones Urine Occult Blood Urine Nitrite Urine Bilirubin Urine Urobilinogen Ur Leukocyte Esterase Urine RBC Urine WBC Ur Squamous Epith Cells Urine Bacteria Urine Mucus POC Glucose 106 135 H 02/29/20 02/29/20 04:10 05:08 WBC RBC Hgb Hct MCV MCH MCHC RDW Std Deviation RDW Coeff of Jesica Plt Count MPV Immature Gran % (Auto) Neut % (Auto) Lymph % (Auto) [place] % (Auto) Eos % (Auto) Baso % (Auto) Absolute Neuts (auto) Absolute Lymphs (auto) Nucleated RBC % Differential Comment PT INR APTT Specimen Type Sample Site pH Bicarbonate Actual Total CO2 Base Excess O2 Saturation O2 % ABG pCO2 ABG pO2 Respiration Rate O2 Delivery Device Vent Mode Tidal Volume POC PEEP Sodium 141 Potassium 4.1 Chloride 112 H Carbon Dioxide 25.0 Anion Gap 4 L BUN 27 H Creatinine 0.68 Estim Creat Clear Calc 68.23 Est GFR (MDRD) Af Amer 112 Est GFR (MDRD) Non-Af 92 BUN/Creatinine Ratio 39.8 H Glucose 137 H Lactic Acid Calcium 7.9 L Total Bilirubin AST ALT Alkaline Phosphatase Total Creatine Kinase Troponin I B-Natriuretic Peptide Total Protein Albumin Globulin Albumin/Globulin Ratio Triglycerides Lipase Urine Color Urine Clarity Urine pH Ur Specific [place] Urine Protein Urine Glucose (UA) Urine Ketones Urine Occult Blood Urine Nitrite Urine Bilirubin Urine Urobilinogen Ur Leukocyte Esterase Urine RBC Urine WBC Ur Squamous Epith Cells Urine Bacteria Urine Mucus POC Glucose 140 H Microbiology 02/28/20 04:40 Sputum, Induced/Lukens Gram Stain - Final 02/27/20 23:18 Mucosa - Nose SARS-CoV-2 Antigen (Rapid) - Final Clinical Impression(s) from Imaging Studies Chest X-Ray 02/27/20 22:25 IMPRESSION: 1. Endotracheal tube abutting the right mainstem bronchi, may retract 3 cm to mid trachea. 2. Prominent interstitial markings and patchy airspace disease within the bilateral lung parenchyma. Electronically Signed: Christophe Hahn DO at 0:18 EST , Service support , Chest X-Ray 02/28/20 00:13 IMPRESSION: Possible mild vascular congestion with bilateral basilar atelectasis. Electronically Signed: Ximena Quiroga MD at 1:34 EST , Service support , Chest CT 02/28/20 00:56 IMPRESSION: Bilateral multifocal pneumonia with areas of superimposed atelectasis as described. Achalasia. No pleural effusion or pneumothorax. Electronically Signed: Ximena Quiroga MD at 1:42 EST , Service support , Chest X-Ray 02/28/20 08:30 IMPRESSION: Vascular congestion. Mild increased markings in the right upper lobe. Follow-up is recommended. Electronically Signed: Alex Meadows, at 10:14 EST , Service support , Brain CT 02/28/20 22:24 IMPRESSION: Chronic changes as described. No acute intracranial hemorrhage or space-occupying lesion. Electronically Signed: Ximena Quiroga MD at 1:38 EST , Service support , Medical Necessity - Tobacco Use Smoking Status: Unknown if ever smoked Assessment/Plan All Active Problems Lactic acidosis (Acute) Respiratory failure (Acute) Achalasia (Acute) RECOMMENDATIONS: 1. Continue empiric antimicrobials, pending further infectious work-up. 2. Wean FiO2 and PEEP to maintain oxygen saturations at or above 90%. 3. Continue tube feeds as tolerated. 4. Discontinue propofol and transition to Precedex for sedation to facilitate weaning from mechanical ventilatory support. 5. Continue Levophed and wean to maintain a mean arterial pressure at or above 65 mmHg. 6. Continue appropriate ICU prophylaxis. 7. Further swallow evaluation work-up, once the patient is able to be extubated. IMPRESSIONS: 1. Acute hypoxemic respiratory failure secondary to aspiration pneumonia The patient initially presented to the hospital after developing an acute hypoxemic respiratory event, likely secondary to acute aspiration leading to PEA cardiac arrest. The patient does have a reported history of choking, likely secondary to the achalasia noted on CT chest. The patient did have retained food product in her esophagus, which was cleared endoscopically. She will be continued on empiric antimicrobials, pending further infectious work-up. FiO2 will be weaned to maintain saturations at or above 90%. Tube feeds will be continued as tolerated by the patient. 2. Status post PEA cardiac arrest likely precipitated by hypoxemia induced by aspiration Continue current supportive measures as noted above. 3. Septic shock secondary to aspiration pneumonia The patient has been adequately volume resuscitated and will be continued on vasopressor support to maintain a mean arterial pressure at or above 65 mmHg. Continue antimicrobials as noted above. 4. Achalasia/esophageal dilation with retained food product The patient's retained esophageal food products were cleared endoscopically today. She will require further evaluation once extubated prior to advancing diet. 5. Hypertension/diabetes mellitus/hyperlipidemia/paroxysmal atrial fibrillation Complicates care, management, recovery and prognosis. Hold antihypertensives given tenuous hemodynamics. Continue sliding scale insulin coverage. TIME: 34 minutes of critical care time, independent of procedures, was spent addressing the patient's acute hypoxemic respiratory failure, aspiration pneumonia, PEA cardiac arrest, septic shock, achalasia, esophageal dilation, review of all data and collaboration with the care team. ([id number]) [id number] Critical care first hour
--- NOTE | 2020-02-29 07:44 | PN.SURG_ITS ---
Patient Problems: Active and Suspected Problems Lactic acidosis (Acute) Respiratory failure (Acute) Achalasia (Acute) Subjective: Patient is tolerating tube feeds - Physical Exam Vitals/I&O's: Vital Signs Temp Pulse Resp BP Pulse Ox 100.7 F H 80 14 131/62 H 98 02/29/20 06:00 02/29/20 07:00 02/29/20 07:00 02/29/20 07:00 02/29/20 07:00 Oxygen Flow Rate (L/min) 15 Oxygen Delivery Method Mechanical Ventilator Weight: 151 lb 10.848 oz Body Mass Index (BMI) 26.6 Intake and Output for Last 24 Hours 02/27/20 02/28/20 02/29/20 23:59 23:59 23:59 Intake Total 1000 / 1000 2450.41 / 2713.21 770.71 / 770.71 Output Total 1055 / 1085 230 / 230 Balance 1000 / 1000 1395.41 / 1628.21 540.71 / 540.71 General: - - Intubated and sedated Cardiovascular: Regular rate, Regular Rhythm Abdomen: Soft, Non Tender, Non-Distended Microbiology Past 72 Hours 02/28/20 04:40 Sputum, Induced/Lukens Gram Stain - Final 02/27/20 23:18 Mucosa - Nose SARS-CoV-2 Antigen (Rapid) - Final Laboratory Results 02/28/20 11:12: POC Glucose 200 H 02/28/20 17:55: POC Glucose 106 02/28/20 23:51: POC Glucose 135 H 02/29/20 04:10: WBC 9.4, RBC 3.83 L, Hgb 10.7 L, Hct 33.0 L, MCV 86.2, MCH 27.9, MCHC 32.4, RDW Std Deviation 43.4, RDW Coeff of Jesica 14.1, Plt Count 285, MPV 10.6, Immature Gran % (Auto) 0.300, Neut % (Auto) 74.9 H, Lymph % (Auto) 14.5 L, [place] % (Auto) 9.8, Eos % (Auto) 0.1, Baso % (Auto) 0.4, Absolute Neuts (auto) 7.0, Absolute Lymphs (auto) 1.36, Nucleated RBC % 0 02/29/20 04:10: Sodium 141, Potassium 4.1, Chloride 112 H, Carbon Dioxide 25.0, Anion Gap 4 L, BUN 27 H, Creatinine 0.68, Estim Creat Clear Calc 68.23, Est GFR (MDRD) Af Amer 112, Est GFR (MDRD) Non-Af 92, BUN/Creatinine Ratio 39.8 H, Glucose 137 H, Calcium 7.9 L 02/29/20 05:08: POC Glucose 140 H Current Medications Acetaminophen (Acetaminophen 650 Mg/20 Ml Udc) 650 mg GT Q6H PRN PRN PRN Reason: FEVER Last Admin: 02/28/20 22:09 Dose: 650 mg Documented by: Chlorhexidine Gluconate (Chlorhexidine 15 Ml) 15 ml PO BID [facility] Last Admin: 02/28/20 21:06 Dose: 15 ml Documented by: Enoxaparin Sodium (Enoxaparin 40 Mg/0.4 Ml Syringe) 40 mg SC DAILY [facility] Last Admin: 02/28/20 09:07 Dose: 40 mg Documented by: Fentanyl Citrate 1,000 mcg/ (Sodium Chloride) 100 mls @ 5 mls/hr CONT INF .Q20H [facility]; Protocol Last Titration: 02/29/20 07:12 Dose: 100 mcg/hr, 10 mls/hr Documented by: Sodium Chloride () 250 mls @ 15 mls/hr IV .[id number] PRN PRN Reason: Saline Flush Last Infusion: 02/28/20 14:00 Dose: 0 mls/hr Documented by: Sodium Chloride () 250 mls @ 15 mls/hr IV .[id number] PRN PRN Reason: Additional IVPB Infusion Sodium Chloride () 250 mls @ 15 mls/hr IV .[id number] PRN PRN Reason: Saline Flush Sodium Chloride () 250 mls @ 15 mls/hr IV .[id number] PRN PRN Reason: Additional IVPB Infusion Propofol (Diprivan) 1,000 mg in 100 mls @ 4.128 mls/hr CONT INF .Q12H [facility]; Protocol Last Titration: 02/29/20 07:00 Dose: 15 mcg/kg/min, 6.2 mls/hr Documented by: Piperacillin Sod/Tazobactam (Sod 3.375 gm/ Sodium Chloride) 50 mls @ 12.5 mls/hr IV Q8 [facility] Last Admin: 02/29/20 05:07 Dose: 12.5 mls/hr Documented by: Pantoprazole Sodium 40 mg/ (Sodium Chloride) 110 mls @ 330 mls/hr IV Q24 [facility] Last Infusion: 02/28/20 09:26 Dose: Infused Documented by: Enteral Nutritional Formula (Vital Af 1.2 Hermes Liquid) 1,000 mls @ 55 mls/hr GT .[id number] [facility] Last Admin: 02/29/20 07:00 Dose: Not Given Documented by: Norepinephrine Bitartrate 8 mg (/ Sodium Chloride) 250 mls @ 9.375 mls/hr CONT INF .[id number] [facility]; Protocol Last Titration: 02/29/20 07:00 Dose: 2.5 mcg/min, 4.7 mls/hr Documented by: Dexmedetomidine HCl 400 mcg/ (Sodium Chloride) 100 mls @ 8.6 mls/hr CONT INF .[id number] [facility]; Protocol Insulin Human Lispro (Insulin Lispro 100 Unit/Ml Insuln.Pen) 0 unit SC Q6 [facility]; Protocol Last Admin: 02/29/20 05:08 Dose: Not Given Documented by: Nystatin (Nystatin Powder 15gm Bottle) 1 applic TOPICAL TID [facility]; Protocol Sodium Chloride (0.9% Saline Lock 10 Ml Syringe) 10 - 40 ml IV UD PRN PRN Reason: SALINE FLUSH Last Admin: 02/28/20 13:39 Dose: 10 ml Documented by: Medical Necessity - Tobacco Use Smoking Status: Unknown if ever smoked Assessment/Plan All Active Problems Lactic acidosis (Acute) Respiratory failure (Acute) Achalasia (Acute) 64-year-old female with possible achalasia 1. Patient had food impaction which was advanced via EGD yesterday. The patient will require outpatient manometry but once blood pressure is stable she may be started on a calcium channel alli to assist with the achalasia. Continue tube feeds as tolerated. Milton Hawthorne MD Pager: [facility] [address] [place] [address], [address] [place] [address] Office:
[2020-02-29] MEDS: Enoxaparin 40 MG/0.4 ML Syringe SC (08:20)
[2020-02-29] MEDS: Acetaminophen 650 MG/20 ML UDC GT (08:36)
[2020-02-29] MEDS: Chlorhexidine 15 ML PO ×2 (09:01→21:48)
--- NOTE | 2020-02-29 10:36 | CASEMGMT ---
RN CM Note: Assessment deferred at this time. Patient remains intubated and unable to participate in assessment. Marina JOVELN RN CM
[2020-02-29] MEDS: Insulin Lispro 100 UNIT/ML INSULN.PEN SC ×2 (11:19→23:29)
[2020-02-29 11:25] LABS: Bedside Glucose 159 mg/dL (70-110)
[2020-02-29] MEDS: Nystatin Powder 15gm Bottle 1 APPLIC TOPICAL ×2 (14:23→21:47)
--- NOTE | 2020-02-29 14:30 | PCM.RX.CS ---
Consult Pharmacy has been consulted to manage selected antiobiotic: Vancomycin Type of Consult: New start Suspected Infection: Pneumonia Labs: Sodium 141 mmol/L (136-145) 02/29/20 04:10 Potassium 4.1 mmol/L (3.5-5.1) 02/29/20 04:10 Chloride 112 mmol/L (98-107) H 02/29/20 04:10 Carbon Dioxide 25.0 mmol/L (21.0-32.0) 02/29/20 04:10 Anion Gap 4 (5-15) L 02/29/20 04:10 BUN 27 mg/dL (7-18) H 02/29/20 04:10 Creatinine 0.68 mg/dL (0.55-1.02) 02/29/20 04:10 Est GFR (MDRD) Af Amer 112 mL/min (>60) 02/29/20 04:10 Est GFR (MDRD) Non-Af 92 mL/min (>60) 02/29/20 04:10 BUN/Creatinine Ratio 39.8 RATIO (10-20) H 02/29/20 04:10 Glucose 137 mg/dL (74-106) H 02/29/20 04:10 Microbiology: Microbiology 02/28/20 04:40 Sputum, Induced/Lukens Gram Stain - Final 02/28/20 04:40 Sputum, Induced/Lukens Respiratory Culture - Preliminary Staphylococcus aureus 02/27/20 23:18 Mucosa - Nose SARS-CoV-2 Antigen (Rapid) - Final Weight used for dosin.8 kg Estimated Creatinine Clearance: 68 ML/MIN Goal Trough: 15-20 mcg/mL Pharmacy Plan for Drug Dosing: Give initial load dose of 1750mg IV x1, then continue with 750mg IV q12h, per [facility] vanc dosing protocol. Will order a trough to be drawn before the 4th total dose. Pharmacy Service will continue to monitor and adjust dosing as required. Follow-Up Labs: Trough Vancomycin Labs to be done on [date and time ordered]: 03/02/20 01:30
[2020-02-29 17:16] LABS: Bedside Glucose 132 mg/dL (70-110)
[2020-02-29] MEDS: Senna/Docusate Sodium 1 Tablet 2 TABLET PO (21:47)
[2020-02-29 23:40] LABS: Bedside Glucose 175 mg/dL (70-110)
[2020-03-01] VITALS (35 sets, daily range): BP systolic 97–169; BP diastolic 40–83; PULSE 49–131; RESP 14–35; TEMP 37.9–39.2; O2SAT 90–99
[2020-03-01 03:58] LABS: Absolute Lymphocyte Count 0.83 X10^3/uL (0.83-4.51); Absolute Neutrophil Count 5.9 X10^3/uL (2.0-7.7); Basophil# 0.03 X10^3/uL; Basophil% 0.4 % (0-1); Eosinophil# 0.01 X10^3/uL; Eosinophils% 0.1 % (0-5); Hematocrit 34.2 % (37-47); Lymphocyte # 0.83 X10^3/ul (4.0); Lymphocyte % 11.1 % (19-41); Mean Corp Hgb Conc 32.2 g/dL (32-36); Mean Corpuscular Hgb 27.6 pg (27.0-32.0); Mean Corpuscular Volume 85.7 fL (81-99); Mean Platelet Vol. 10.2 fl (6.2-12.0); Monocyte% 9.3 % (0-10); NRBC Flagged by Analyzer 0 % (0-5); Neutrophil # 5.91 X10^3/uL (2.7-7.7); Neutrophil % 78.7 % (47-70); Platelet Count 188 K/mm3 (150-450); RBC Distribution Width CV 13.9 % (11.6-14.6); RBC Distribution Width SD 43.1 fl (35.1-43.9); Red Blood Count 3.99 M/mm3 (4.2-5.4); White Blood Count 7.5 K/mm3 (4.4-11.0)
[2020-03-01 04:09] LABS: Anion Gap 4 (5-15); BUN 23 mg/dL (7-18); BUN/Creat Ratio 36.2 RATIO (10-20); Calcium,Total 7.7 mg/dL (8.5-10.1); Chloride 110 mmol/L (98-107); Creatinine, Serum 0.64 mg/dL (0.55-1.02); EST Glomerular Filtration Rate 100 mL/min (>60); Est Glom Filt Rate - Afr Amer 121 mL/min (>60); Estimated Creatinine Clearance 72.49 ml/min; Glucose 183 mg/dL (74-106); Potassium 4.1 mmol/L (3.5-5.1); Sodium Level 139 mmol/L (136-145)
[2020-03-01] MEDS: TITRATION PARAMETER CHANGE 1 EACH IV (04:58)
[2020-03-01] MEDS: Insulin Lispro 100 UNIT/ML INSULN.PEN SC ×3 (04:59→17:02)
[2020-03-01] MEDS: Nystatin Powder 15gm Bottle 1 APPLIC TOPICAL ×3 (04:59→22:09)
--- NOTE | 2020-03-01 07:37 | PN_ITS ---
Subjective: The patient was seen and examined at the bedside this morning. Events from the last 24 hours have been reviewed. The patient is currently afebrile, hemodynamically stable and maintaining appropriate oxygen saturations on assist control mode of mechanical ventilation with an FiO2 requirement of 25%. The patient failed her spontaneous breathing trial this morning due to an adequate tidal volumes. She is currently only sedated on Precedex. She has been tolerating tube feeds without issue. She is currently documented to be overall net +5.4 L for the hospital admission. Objective: The patient's most recent lab work, culture data and imaging studies have all been personally reviewed. Coronavirus rapid antigen test was negative. Sputum culture was positive for staph aureus. General: - - Intubated, sedated and mechanically ventilated. HEENT: Atraumatic, PERRLA, Normocephalic Oral: No Gingival or Mucosal Lesions/ Ulcerations, - - Stable endotracheal and OG tubes Neck: Supple, No Nodes, Trachea Midline Lungs: Diminished Cardiovascular: Regular rate, Regular Rhythm Abdomen: Bowel Sounds Present, Soft, Non Tender Extremities: No clubbing, No cyanosis, No edema Skin: No breakdown Musculoskeletal: No Muscle Wasting Lymphatic: No Cervical, Supraclavicular, or Inguinal Adenopathy Neurological: - - No focal neurological deficits. Currently sedated on the ventilator. Vital Signs Temp Pulse Resp BP Pulse Ox 100.5 F H 53 L 14 134/60 H 98 03/01/20 05:00 03/01/20 06:00 03/01/20 06:00 03/01/20 06:00 03/01/20 06:00 Oxygen Flow Rate (L/min) 15 Oxygen Delivery Method Mechanical Ventilator Weight: 154 lb 8.705 oz Body Mass Index (BMI) 26.6 Intake and Output for Last 24 Hours 02/28/20 02/29/20 03/01/20 23:59 23:59 23:59 Intake Total 2450.41 / 2713.21 3258.69 / 3280.42 1098.78 / 1098.78 Output Total 1055 / 1085 1090 / 1090 250 / 250 Balance 1395.41 / 1628.21 2168.69 / 2190.42 848.78 / 848.78 Labs (Last 48 Hours) 02/28/20 02/28/20 02/28/20 11:12 17:55 23:51 WBC RBC Hgb Hct MCV MCH MCHC RDW Std Deviation RDW Coeff of Jesica Plt Count MPV Immature Gran % (Auto) Neut % (Auto) Lymph % (Auto) [place] % (Auto) Eos % (Auto) Baso % (Auto) Absolute Neuts (auto) Absolute Lymphs (auto) Nucleated RBC % Sodium Potassium Chloride Carbon Dioxide Anion Gap BUN Creatinine Estim Creat Clear Calc Est GFR (MDRD) Af Amer Est GFR (MDRD) Non-Af BUN/Creatinine Ratio Glucose Calcium POC Glucose 200 H 106 135 H 02/29/20 02/29/20 02/29/20 04:10 04:10 05:08 WBC 9.4 RBC 3.83 L Hgb 10.7 L Hct 33.0 L MCV 86.2 MCH 27.9 MCHC 32.4 RDW Std Deviation 43.4 RDW Coeff of Jesica 14.1 Plt Count 285 MPV 10.6 Immature Gran % (Auto) 0.300 Neut % (Auto) 74.9 H Lymph % (Auto) 14.5 L [place] % (Auto) 9.8 Eos % (Auto) 0.1 Baso % (Auto) 0.4 Absolute Neuts (auto) 7.0 Absolute Lymphs (auto) 1.36 Nucleated RBC % 0 Sodium 141 Potassium 4.1 Chloride 112 H Carbon Dioxide 25.0 Anion Gap 4 L BUN 27 H Creatinine 0.68 Estim Creat Clear Calc 68.23 Est GFR (MDRD) Af Amer 112 Est GFR (MDRD) Non-Af 92 BUN/Creatinine Ratio 39.8 H Glucose 137 H Calcium 7.9 L POC Glucose 140 H 02/29/20 02/29/20 02/29/20 11:18 17:13 23:28 WBC RBC Hgb Hct MCV MCH MCHC RDW Std Deviation RDW Coeff of Jesica Plt Count MPV Immature Gran % (Auto) Neut % (Auto) Lymph % (Auto) [place] % (Auto) Eos % (Auto) Baso % (Auto) Absolute Neuts (auto) Absolute Lymphs (auto) Nucleated RBC % Sodium Potassium Chloride Carbon Dioxide Anion Gap BUN Creatinine Estim Creat Clear Calc Est GFR (MDRD) Af Amer Est GFR (MDRD) Non-Af BUN/Creatinine Ratio Glucose Calcium POC Glucose 159 H 132 H 175 H 03/01/20 03/01/20 03:50 03:50 WBC 7.5 RBC 3.99 L Hgb 11.0 L Hct 34.2 L MCV 85.7 MCH 27.6 MCHC 32.2 RDW Std Deviation 43.1 RDW Coeff of Jesica 13.9 Plt Count 188 MPV 10.2 Immature Gran % (Auto) 0.400 Neut % (Auto) 78.7 H Lymph % (Auto) 11.1 L [place] % (Auto) 9.3 Eos % (Auto) 0.1 Baso % (Auto) 0.4 Absolute Neuts (auto) 5.9 Absolute Lymphs (auto) 0.83 Nucleated RBC % 0 Sodium 139 Potassium 4.1 Chloride 110 H Carbon Dioxide 25.0 Anion Gap 4 L BUN 23 H Creatinine 0.64 Estim Creat Clear Calc 72.49 Est GFR (MDRD) Af Amer 121 Est GFR (MDRD) Non-Af 100 BUN/Creatinine Ratio 36.2 H Glucose 183 H Calcium 7.7 L POC Glucose Microbiology 02/28/20 04:40 Sputum, Induced/Lukens Gram Stain - Final 02/28/20 04:40 Sputum, Induced/Lukens Respiratory Culture - Preliminary Staphylococcus aureus Clinical Impression(s) from Imaging Studies Chest X-Ray 02/27/20 22:25 IMPRESSION: 1. Endotracheal tube abutting the right mainstem bronchi, may retract 3 cm to mid trachea. 2. Prominent interstitial markings and patchy airspace disease within the bilateral lung parenchyma. Electronically Signed: Christophe Hahn DO at 0:18 EST , Service support , Chest X-Ray 02/28/20 00:13 IMPRESSION: Possible mild vascular congestion with bilateral basilar atelectasis. Electronically Signed: Ximena Quiroga MD at 1:34 EST , Service support , Chest CT 02/28/20 00:56 IMPRESSION: Bilateral multifocal pneumonia with areas of superimposed atelectasis as described. Achalasia. No pleural effusion or pneumothorax. Electronically Signed: Ximena Quiroga MD at 1:42 EST , Service support , Chest X-Ray 02/28/20 08:30 IMPRESSION: Vascular congestion. Mild increased markings in the right upper lobe. Follow-up is recommended. Electronically Signed: Alex Meadows, at 10:14 EST , Service support , Brain CT 02/28/20 22:24 IMPRESSION: Chronic changes as described. No acute intracranial hemorrhage or space-occupying lesion. Electronically Signed: Ximena Quiroga MD at 1:38 EST , Service support , Medical Necessity - Tobacco Use Smoking Status: Unknown if ever smoked Assessment/Plan All Active Problems Lactic acidosis (Acute) Respiratory failure (Acute) Achalasia (Acute) RECOMMENDATIONS: 1. Continue antimicrobials per ID recommendations. 2. Wean FiO2 and PEEP to maintain oxygen saturations at or above 90%. 3. Continue tube feeds as tolerated. 4. Continue appropriate ICU prophylaxis. 5. Further swallow evaluation work-up, once the patient is able to be extu bated. IMPRESSIONS: 1. Acute hypoxemic respiratory failure secondary to aspiration pneumonia The patient initially presented to the hospital after developing an acute hypoxemic respiratory event, likely secondary to acute aspiration leading to PEA cardiac arrest. The patient does have a reported history of choking, likely secondary to the achalasia noted on CT chest. The patient did have retained food product in her esophagus, which was cleared endoscopically. The patient will be continued on antimicrobials per ID recommendations. FiO2 will be weaned to maintain saturations at or above 90%. Continue tube feeds as tolerated by the patient. 2. Status post PEA cardiac arrest likely precipitated by hypoxemia induced by aspiration Continue current supportive measures as noted above. 3. Septic shock secondary to aspiration pneumonia The patient has been adequately volume resuscitated and has been weaned from vasopressor support. Continue antimicrobials as noted above. 4. Achalasia/esophageal dilation with retained food product The patient's retained esophageal food products were cleared endoscopically today. She will require further evaluation once extubated prior to advancing diet. 5. Hypertension/diabetes mellitus/hyperlipidemia/paroxysmal atrial fibrillation Complicates care, management, recovery and prognosis. Hold antihypertensives given tenuous hemodynamics. Continue sliding scale insulin coverage. TIME: 33 minutes of critical care time, independent of procedures, was spent addressing the patient's acute hypoxemic respiratory failure, aspiration pneumonia, PEA cardiac arrest, septic shock, achalasia, esophageal dilation, review of all data and collaboration with the care team. [id number]) [phone] [id number] Critical care first hour
--- NOTE | 2020-03-01 07:37 | PN_ITS ---
Patient Problems: Active and Suspected Problems Lactic acidosis (Acute) Respiratory failure (Acute) Achalasia (Acute) Reason for Visit: Acute hypoxic respiratory failure Aspiration pneumonia Impacted food Achalasia Subjective: Patient remains on the vent. Did fail her repeat weaning trial this a.m. as a result of low tidal volumes Objective: GENERAL: Sedated on the vent HEENT: Atraumatic; EYES; Anicteric, Normal Conjunctiva NECK; supple, normal thyroid, RESPIRATORY: Diminished to auscultation CARDIOVASCULAR: Regular S1 S2, GI: soft, normoactive bowel sounds, : No Renal angle tenderness; EXTREMITIES: No edema, no clubbing, MUSCULOSKELETAL: no muscle waisting NEURO: On the vent SKIN; no rash Vitals/I&O's: Vital Signs Temp Pulse Resp BP Pulse Ox 100.5 F H 53 L 14 134/60 H 98 03/01/20 05:00 03/01/20 06:00 03/01/20 06:00 03/01/20 06:00 03/01/20 06:00 Oxygen Flow Rate (L/min) 15 Oxygen Delivery Method Mechanical Ventilator Weight: 70.1 kg Body Mass Index (BMI) 26.6 Intake and Output for Last 24 Hours 02/28/20 02/29/20 03/01/20 23:59 23:59 23:59 Intake Total 2450.41 / 2713.21 3258.69 / 3280.42 1098.78 / 1098.78 Output Total 1055 / 1085 1090 / 1090 250 / 250 Balance 1395.41 / 1628.21 2168.69 / 2190.42 848.78 / 848.78 Microbiology Past 72 Hours 02/28/20 04:40 Sputum, Induced/Lukens Gram Stain - Final 02/28/20 04:40 Sputum, Induced/Lukens Respiratory Culture - Preliminary Staphylococcus aureus 02/27/20 23:18 Mucosa - Nose SARS-CoV-2 Antigen (Rapid) - Final Laboratory Results 02/29/20 11:18: POC Glucose 159 H 02/29/20 17:13: POC Glucose 132 H 02/29/20 23:28: POC Glucose 175 H 03/01/20 03:50: WBC 7.5, RBC 3.99 L, Hgb 11.0 L, Hct 34.2 L, MCV 85.7, MCH 27.6, MCHC 32.2, RDW Std Deviation 43.1, RDW Coeff of Jesica 13.9, Plt Count 188, MPV 10.2, Immature Gran % (Auto) 0.400, Neut % (Auto) 78.7 H, Lymph % (Auto) 11.1 L, [place] % (Auto) 9.3, Eos % (Auto) 0.1, Baso % (Auto) 0.4, Absolute Neuts (auto) 5.9, Absolute Lymphs (auto) 0.83, Nucleated RBC % 0 03/01/20 03:50: Sodium 139, Potassium 4.1, Chloride 110 H, Carbon Dioxide 25.0, Anion Gap 4 L, BUN 23 H, Creatinine 0.64, Estim Creat Clear Calc 72.49, Est GFR (MDRD) Af Amer 121, Est GFR (MDRD) Non-Af 100, BUN/Creatinine Ratio 36.2 H, Glucose 183 H, Calcium 7.7 L Current Medications Acetaminophen (Acetaminophen 650 Mg/20 Ml Udc) 650 mg GT Q6H PRN PRN PRN Reason: FEVER Last Admin: 02/29/20 08:36 Dose: 650 mg Documented by: Chlorhexidine Gluconate (Chlorhexidine 15 Ml) 15 ml PO BID [facility] Last Admin: 02/29/20 21:48 Dose: 15 ml Documented by: Enoxaparin Sodium (Enoxaparin 40 Mg/0.4 Ml Syringe) 40 mg SC DAILY [facility] Last Admin: 02/29/20 08:20 Dose: 40 mg Documented by: Fentanyl Citrate 1,000 mcg/ (Sodium Chloride) 100 mls @ 5 mls/hr CONT INF .Q20H [facility]; Protocol Last Titration: 03/01/20 05:00 Dose: 0 mcg/hr, 0 mls/hr Documented by: Sodium Chloride () 250 mls @ 15 mls/hr IV .[id number] PRN PRN Reason: Saline Flush Last Infusion: 03/01/20 06:24 Dose: 0 mls/hr Documented by: Sodium Chloride () 250 mls @ 15 mls/hr IV .[id number] PRN PRN Reason: Additional IVPB Infusion Sodium Chloride () 250 mls @ 15 mls/hr IV .[id number] PRN PRN Reason: Saline Flush Sodium Chloride () 250 mls @ 15 mls/hr IV .[id number] PRN PRN Reason: Additional IVPB Infusion Piperacillin Sod/Tazobactam (Sod 3.375 gm/ Sodium Chloride) 50 mls @ 12.5 mls/hr IV Q8 [facility] Last Admin: 03/01/20 04:59 Dose: 12.5 mls/hr Documented by: Pantoprazole Sodium 40 mg/ (Sodium Chloride) 110 mls @ 330 mls/hr IV Q24 [facility] Last Infusion: 02/29/20 10:23 Dose: Infused Documented by: Enteral Nutritional Formula (Vital Af 1.2 Hermes Liquid) 1,000 mls @ 55 mls/hr GT .[id number] [facility] Last Admin: 03/01/20 03:45 Dose: Not Given Documented by: Norepinephrine Bitartrate 8 mg (/ Sodium Chloride) 250 mls @ 9.375 mls/hr CONT INF .[id number] [facility]; Protocol Last Titration: 02/29/20 21:00 Dose: 0 mcg/min, 0 mls/hr Documented by: Dexmedetomidine HCl 400 mcg/ (Sodium Chloride) 100 mls @ 8.763 mls/hr CONT INF .[id number] [facility]; Protocol Last Titration: 03/01/20 06:00 Dose: 0.6 mcg/kg/hr, 10.5 mls/hr Documented by: Vancomycin IV Pharmacy to Dose (1 ea/ Sodium Chloride) 500 mls @ 250 mls/hr IV X1 PRN; Protocol PRN Reason: Rx to Dose Vancomycin HCl 750 mg/ Sodium (Chloride) 265 mls @ 250 mls/hr IV Q12H [facility] Last Infusion: 03/01/20 03:15 Dose: Infused Documented by: Insulin Human Lispro (Insulin Lispro 100 Unit/Ml Insuln.Pen) 0 unit SC Q6 [facility]; Protocol Last Admin: 03/01/20 04:59 Dose: 1 u Documented by: Nystatin (Nystatin Powder 15gm Bottle) 1 applic TOPICAL TID [facility]; Protocol Last Admin: 03/01/20 04:59 Dose: 1 applicatio Documented by: Senna/Docusate Sodium (Senna/Docusate Sodium 1 Tablet) 2 tablet PO BID [facility] Last Admin: 02/29/20 21:47 Dose: 2 tablet Documented by: Sodium Chloride (0.9% Saline Lock 10 Ml Syringe) 10 - 40 ml IV UD PRN PRN Reason: SALINE FLUSH Last Admin: 02/28/20 13:39 Dose: 10 ml Documented by: ISAURO Vital Signs/Narrative: Vital Signs Temp Pulse Resp BP Pulse Ox 03/01/20 06:00 53 L 14 134/60 H 98 03/01/20 05:15 64 14 97 03/01/20 05:00 100.5 F H 57 L 14 124/40 H 98 03/01/20 04:00 100.2 F H 54 L 14 151/67 H 98 Medical Necessity - Tobacco Use Smoking Status: Unknown if ever smoked Assessment/Plan All Active Problems Lactic acidosis (Acute) Respiratory failure (Acute) Achalasia (Acute) Patient is a 64-year-old lady admitted with progressive shortness of breath with significant hypoxia. Patient apparently cardiopulmonary arrest in route to the hospital CPR initiated by the squad and patient intubated in the ED and admitted to the intensive care unit imaging studies obtained on admission demonstrated suspected achalasia with food impaction. Admitted to the intensive care unit with consultation placed to both pulmonary medicine as well as general surgery 1. Acute hypoxic respiratory failure - Cardiopulmonary arrest as a result of food impaction with subsequent aspiration. Patient was successfully resuscitated using ACLS protocol intubated in the ED and admitted to the intensive care unit. Was started on broad- spectrum antibiotic therapy -02/29/2020 patient remains on the vent. Attempts at weaning this a.m. failed Precedex subsequently added to patient sedation -03/01/2020Patient remains on the vent. Did fail her repeat weaning trial this a.m. as a result of low tidal volumes 2. Septic shock ?Secondary to aspiration pneumonia management as discussed above in addition to antibiotic therapy 3. Esophageal food impaction ?Suspected to be secondary to achalasia. Consult was placed to Dr. Hawthorne with general surgery who did perform bedside EGD the impacted food was advanced using the EGD scope -Patient to undergo outpatient manometry studies to confirm achalasia 4. Suspected aspiration pneumonia ?Following food impaction patient is currently intubated and started on broad- spectrum antibiotic therapy 5. Cardiopulmonary arrest -Successfully resuscitated using ACLS protocol 6. Lactic acidosis ?Secondary to combination of infection as well as patient having experience cardiopulmonary arrest patient being on Metformin at home 7. Hypertension - Blood pressure in stable 8. Paroxysmal A. fib ?Rate controlled. Patient is on Xarelto at home held placed on therapeutic Lovenox 9. Diabetes mellitus type 2 ?Home medications held please on Accu-Cheks before meals and at bedtime with sliding scale coverage 10. Dyslipidemia ?Patient is on statin therapy plan to resume once patient is extubated 11. DVT prophylaxis ?Therapeutic Lovenox Inpatient E&M: [id number] [facility] L3
[2020-03-01] MEDS: Enoxaparin 40 MG/0.4 ML Syringe SC (08:51)
[2020-03-01] MEDS: Chlorhexidine 15 ML PO ×2 (08:51→22:10)
[2020-03-01] MEDS: Vital AF 1.2 Cal Liquid 1,000 ML 55 ML GT (08:52)
[2020-03-01] MEDS: Acetaminophen 650 MG/20 ML UDC GT ×2 (08:53→15:47)
[2020-03-01] MEDS: Senna/Docusate Sodium 1 Tablet 2 TABLET PO ×2 (10:09→22:09)
--- NOTE | 2020-03-01 10:59 | CON.PCM_ITS ---
Problem List (1) Respiratory failure Status: Acute Qualifiers: Chronicity: acute Respiratory failure complication: hypoxia Qualified Code(s): J96.01 - Acute respiratory failure with hypoxia Reason for Consult: pneumonia Consulted by: Dr. Lackey History of Present Illness: The patient is a 64 year old F presented with a fib, encephalopathy, resp failure, aspiration. Started on vanc/zosyn, seen by Dr. Hawthorne and had EGD 02/27 for food in lower esophagus. On vent, unable to provide history or ROS. Sputum now with staph aureus. - Medical History Past Medical History (Chronic Problems): Chronic Problems Atrial fibrillation with RVR (Chronic) Acute bronchitis (Chronic) Hypertension (Chronic) Hyperlipidemia (Chronic) Chronic insomnia (Chronic) Diabetes mellitus, type II (Chronic) Allergies/Adverse Reactions: Allergies No Known Allergies Allergy (Verified 02/06/20 00:24) Home Medications: Ambulatory Orders Medication Instructions Recorded Lisinopril 40 mg PO DAILY 12/01/13 Olanzapine 10 mg PO QHS 12/01/13 metFORMIN HCl [Glucophage] 1,000 mg PO BREAKFAST 12/01/13 Albuterol Inhaler [Ventolin Hfa] 2 puff INHALATION Q4H PRN PRN #1 05/18/19 inhaler Aspirin [Aspir-Low] 81 mg PO DAILY 05/18/19 Benztropine [Cogentin] 1 mg PO BID 05/18/19 Calcium Carbonate/Vitamin D3 1 ea PO BID 05/18/19 [Calcium 600 + Vit D Tablet] Gabapentin [Neurontin] 100 mg PO TIDCM 05/18/19 Metformin HCl 500 mg PO DINNER 05/18/19 Oxybutynin [Ditropan] 10 mg PO DAILY 05/18/19 Simvastatin 10 mg PO QHS 05/18/19 Verapamil HCl [Verapamil ER] 240 mg PO BID 05/18/19 traZODone [Desyrel] 100 mg PO QHS PRN 05/18/19 Multivitamin [Daily Griffin] 1 ea PO DAILY 02/05/20 Rivaroxaban [Xarelto] 20 mg PO DAILY #30 tab 02/06/20 Meloxicam [Mobic] 15 mg PO DAILY 02/27/20 - Social History SMOKING STATUS:: Unknow if ever smoked Vital Signs Temp Pulse Resp BP Pulse Ox 102 F H 102 H 14 100/48 L 90 03/01/20 10:00 12/17/20 10:00 03/01/20 10:00 03/01/20 10:00 03/01/20 08:00 Oxygen Flow Rate (L/min) 15 Oxygen Delivery Method Mechanical Ventilator Weight: 70.1 kg Body Mass Index (BMI) 26.6 Microbiology Past 72 Hours 02/27/20 22:40 Blood Culture - Preliminary Blood Culture (Wb) - Anticubital Right No growth in 48 hours. 02/27/20 22:35 Blood Culture - Preliminary Blood Culture (Wb) - Left Wrist No growth in 48 hours. 02/28/20 04:40 Gram Stain - Final Sputum, Induced/Lukens Respiratory Culture - Final Staphylococcus aureus 02/27/20 23:18 SARS-CoV-2 Antigen (Rapid) - Final Mucosa - Nose Laboratory Tests Past 24 Hrs 03/01/20 03/01/20 03:50 03:50 WBC 7.5 RBC 3.99 L Hgb 11.0 L Hct 34.2 L MCV 85.7 MCH 27.6 MCHC 32.2 RDW Std Deviation 43.1 RDW Coeff of Jesica 13.9 Plt Count 188 MPV 10.2 Immature Gran % (Auto) 0.400 Neut % (Auto) 78.7 H Lymph % (Auto) 11.1 L [place] % (Auto) 9.3 Eos % (Auto) 0.1 Baso % (Auto) 0.4 Absolute Neuts (auto) 5.9 Absolute Lymphs (auto) 0.83 Nucleated RBC % 0 Sodium 139 Potassium 4.1 Chloride 110 H Carbon Dioxide 25.0 Anion Gap 4 L BUN 23 H Creatinine 0.64 Estim Creat Clear Calc 72.49 Est GFR (MDRD) Af Amer 121 Est GFR (MDRD) Non-Af 100 BUN/Creatinine Ratio 36.2 H Glucose 183 H Calcium 7.7 L - Other Studies Radiology: [] reviewed Other Studies: [] Route of nutrition/ use of supplements: [] Nutritional Intake: [] IV Site: [] Hdez Catheter: [] - Physical Exam General: Non-Cooperative HEENT: Atraumatic, PERRLA Neck: Supple, No Nodes Lungs: Diminished Cardiovascular: Regular rate, Regular Rhythm Abdomen: Soft, Non Tender, Non-Distended Extremities: No edema Skin: No rashes IV Site: Peripheral, without redness Musculoskeletal: No Tenderness to Palpation of Joints or Extremities - Assessment/Plan Antibiotics: [] Assessment/Plan: [] Active and Suspected Problems Lactic acidosis (Acute) Respiratory failure (Acute) Achalasia (Acute) Resp failure with aspiration and mssa in sputum - narrow abx to unasyn will follow, thank you
[2020-03-01 11:56] LABS: Bedside Glucose 176 mg/dL (70-110)
[2020-03-01 12:05] LABS: Bedside Glucose 177 mg/dL (70-110)
--- NOTE | 2020-03-01 13:14 | CASEMGMT ---
RN CM Note: Pt remains on vent, unable to participate in assessment. LNOK is brother. Call to home phone and niece answered the phone. Niece states that her father and the patient live with her and she is able to assist them. Niece states patient is high functioning MRDD, but does not use any services through [employer]. Niece states she used to help @ [employer]. Diagnosis: Respiratory Failure, Achalasia PCP: Dr. Brown Pharmacy: [facility] Benefit: yes LNOK: Brother, Chaz Mendoza and Niece Cheryl Mendoza Living arrangements: Lives independently at home. Completes own ADL's and makes simple meals. Niece assists with other chores, meals. Home has 10-12 stairs going up into home and patient's bedroom/bath is in the finished basement. Niece states often patient will sleep on couch instead of going to basement, though she can navigate steps without assist. No ambulatory DME used. DME: none HHC: none SNF: none DC PLAN: TBD. PT/OT working with patient, however limited due to ventilator. Will follow and assist with discharge planning.
[2020-03-01 17:10] LABS: Bedside Glucose 222 mg/dL (70-110)
--- NOTE | 2020-03-01 17:21 | NURSING ---
temp 102 given tylenol as per order temp increased to 102.6 ice pacj applied to bilat groin & axilla
[2020-03-01] MEDS: Polyethylene Glycol 3350 17 GM PACKET PO (22:16)
[2020-03-02] VITALS (28 sets, daily range): BP systolic 111–162; BP diastolic 53–88; PULSE 67–108; RESP 14–33; TEMP 36.7–38.6; O2SAT 92–99
[2020-03-02] MEDS: Insulin Lispro 100 UNIT/ML INSULN.PEN SC ×2 (00:35→05:49)
[2020-03-02 00:41] LABS: Bedside Glucose 195 mg/dL (70-110)
[2020-03-02] MEDS: TITRATION PARAMETER CHANGE 1 EACH IV (03:54)
[2020-03-02] MEDS: 0.9% Saline Lock 10 ML Syringe IV ×2 (05:34→20:36)
[2020-03-02] MEDS: Nystatin Powder 15gm Bottle 1 APPLIC TOPICAL ×3 (05:37→20:38)
[2020-03-02 05:55] LABS: Bedside Glucose 188 mg/dL (70-110)
--- NOTE | 2020-03-02 06:23 | NURSING ---
Extubated by respiratory to 2L NC. Tolerated well.
--- NOTE | 2020-03-02 07:34 | PCM.PN.SRG ---
Patient Problems: Active and Suspected Problems Lactic acidosis (Acute) Respiratory failure (Acute) Achalasia (Acute) Subjective: Patient was extubated this morning - Physical Exam Vitals/I&O's: Vital Signs Temp Pulse Resp BP Pulse Ox 101.4 F H 78 24 H 140/54 H 99 03/02/20 06:00 03/02/20 06:00 03/02/20 06:00 03/02/20 06:00 03/02/20 06:00 Oxygen Flow Rate (L/min) 15 Oxygen Delivery Method Mechanical Ventilator Weight: 156 lb 11.979 oz Body Mass Index (BMI) 26.6 Intake and Output for Last 24 Hours 02/29/20 03/01/20 03/02/20 23:59 23:59 23:59 Intake Total 3258.69 / 3280.42 2674.73 / 2691.18 795.53 / 795.53 Output Total 1090 / 1090 1000 / 1000 400 / 400 Balance 2168.69 / 2190.42 1674.73 / 1691.18 395.53 / 395.53 General: Alert, Oriented x3 Neck: No JVD Abdomen: Soft, Non Tender, Non-Distended Microbiology Past 72 Hours 02/27/20 22:40 Blood Culture (Wb) - Anticubital Right Blood Culture - Preliminary No growth in 48 hours. 02/27/20 22:35 Blood Culture (Wb) - Left Wrist Blood Culture - Preliminary No growth in 48 hours. 02/28/20 04:40 Sputum, Induced/Lukens Gram Stain - Final 02/28/20 04:40 Sputum, Induced/Lukens Respiratory Culture - Final Staphylococcus aureus Laboratory Results 03/01/20 04:55: POC Glucose 177 H 03/01/20 11:43: POC Glucose 176 H 03/01/20 16:59: POC Glucose 222 H 03/02/20 00:33: POC Glucose 195 H 03/02/20 05:47: POC Glucose 188 H Current Medications Acetaminophen (Acetaminophen 650 Mg/20 Ml Udc) 650 mg GT Q6H PRN PRN PRN Reason: FEVER Last Admin: 03/01/20 15:47 Dose: 650 mg Documented by: Enoxaparin Sodium (Enoxaparin 40 Mg/0.4 Ml Syringe) 40 mg SC DAILY [facility] Last Admin: 03/01/20 08:51 Dose: 40 mg Documented by: Sodium Chloride () 250 mls @ 15 mls/hr IV .[id number] PRN PRN Reason: Saline Flush Last Infusion: 03/02/20 06:33 Dose: 15 mls/hr Documented by: Sodium Chloride () 250 mls @ 15 mls/hr IV .[id number] PRN PRN Reason: Additional IVPB Infusion Sodium Chloride () 250 mls @ 15 mls/hr IV .[id number] PRN PRN Reason: Saline Flush Sodium Chloride () 250 mls @ 15 mls/hr IV .[id number] PRN PRN Reason: Additional IVPB Infusion Pantoprazole Sodium 40 mg/ (Sodium Chloride) 110 mls @ 330 mls/hr IV Q24 BLESSING Last Infusion: 03/01/20 10:26 Dose: Infused Documented by: Ampicillin Sodium/Sulbactam (Sodium 3 gm/ Sodium Chloride) 112 mls @ 150 mls/hr IV Q6 BLESSING Last Infusion: 03/02/20 06:33 Dose: Infused Documented by: Insulin Human Lispro (Insulin Lispro 100 Unit/Ml Insuln.Pen) 0 unit SC Q6 BLESSING; Protocol Last Admin: 03/02/20 05:49 Dose: 1 u Documented by: Nystatin (Nystatin Powder 15gm Bottle) 1 applic TOPICAL TID BLESSING; Protocol Last Admin: 03/02/20 05:37 Dose: 1 applicatio Documented by: Polyethylene Glycol (Polyethylene Glycol 3350 17 Gm Packet) 17 gm PO DAILY BLESSING Last Admin: 03/01/20 22:16 Dose: 17 gm Documented by: Senna/Docusate Sodium (Senna/Docusate Sodium 1 Tablet) 2 tablet PO BID BLESSING Last Admin: 03/01/20 22:09 Dose: 2 tablet Documented by: Sodium Chloride (0.9% Saline Lock 10 Ml Syringe) 10 - 40 ml IV UD PRN PRN Reason: SALINE FLUSH Last Admin: 03/02/20 05:34 Dose: 20 ml Documented by: Medical Necessity - Tobacco Use Smoking Status: Unknown if ever smoked Assessment/Plan All Active Problems Lactic acidosis (Acute) Respiratory failure (Acute) Achalasia (Acute) 64-year-old female with dysphagia and aspiration pneumonia 1. I discussed the patient's EGD findings with her. I would like to order barium swallow before ordering a diet to ensure that there is passage of food into the stomach and the patient does not have obvious signs of achalasia. The gold standard would be manometry but I do not believe this can be ordered as an inpatient. If things do pass then I would recommend continuing a PPI and starting with a liquid diet. I would also recommend speech therapy consult. Milton Hawthorne MD Pager: [facility] [address] [place] [address], [address] [place] [address] Office:
--- NOTE | 2020-03-02 08:06 | PN_ITS ---
Patient Problems: Active and Suspected Problems Lactic acidosis (Acute) Respiratory failure (Acute) Achalasia (Acute) Reason for Visit: Acute hypoxic respiratory failure Aspiration pneumonia Impacted food Achalasia Subjective: Patient was successfully weaned off the vent after successful weaning trial. Objective: GENERAL: awake HEENT: Atraumatic; EYES; Anicteric, Normal Conjunctiva NECK; supple, normal thyroid, RESPIRATORY: Diminished to auscultation CARDIOVASCULAR: Regular S1 S2, GI: soft, normoactive bowel sounds, : No Renal angle tenderness; EXTREMITIES: No edema, no clubbing, MUSCULOSKELETAL: no muscle waisting NEURO: jessica SKIN; no rash Vitals/I&O's: Vital Signs Temp Pulse Resp BP Pulse Ox 100.8 F H 97 26 H 132/53 H 99 03/02/20 07:00 03/02/20 07:40 03/02/20 07:00 03/02/20 07:00 03/02/20 07:00 Oxygen Flow Rate (L/min) 15 Oxygen Delivery Method Mechanical Ventilator Weight: 71.1 kg Body Mass Index (BMI) 26.6 Intake and Output for Last 24 Hours 02/29/20 03/01/20 03/02/20 23:59 23:59 23:59 Intake Total 3258.69 / 3280.42 2674.73 / 2691.18 795.53 / 795.53 Output Total 1090 / 1090 1000 / 1000 400 / 400 Balance 2168.69 / 2190.42 1674.73 / 1691.18 395.53 / 395.53 Microbiology Past 72 Hours 02/27/20 22:40 Blood Culture (Wb) - Anticubital Right Blood Culture - Preliminary No growth in 48 hours. 02/27/20 22:35 Blood Culture (Wb) - Left Wrist Blood Culture - Preliminary No growth in 48 hours. 02/28/20 04:40 Sputum, Induced/Lukens Gram Stain - Final 02/28/20 04:40 Sputum, Induced/Lukens Respiratory Culture - Final Staphylococcus aureus Laboratory Results 03/01/20 04:55: POC Glucose 177 H 03/01/20 11:43: POC Glucose 176 H 03/01/20 16:59: POC Glucose 222 H 03/02/20 00:33: POC Glucose 195 H 03/02/20 05:47: POC Glucose 188 H Current Medications Acetaminophen (Acetaminophen 650 Mg/20 Ml Udc) 650 mg GT Q6H PRN PRN PRN Reason: FEVER Last Admin: 03/01/20 15:47 Dose: 650 mg Documented by: Enoxaparin Sodium (Enoxaparin 40 Mg/0.4 Ml Syringe) 40 mg SC DAILY [facility] Last Admin: 03/01/20 08:51 Dose: 40 mg Documented by: Sodium Chloride () 250 mls @ 15 mls/hr IV .[id number] PRN PRN Reason: Saline Flush Last Infusion: 03/02/20 06:33 Dose: 15 mls/hr Documented by: Sodium Chloride () 250 mls @ 15 mls/hr IV .[id number] PRN PRN Reason: Additional IVPB Infusion Sodium Chloride () 250 mls @ 15 mls/hr IV .[id number] PRN PRN Reason: Saline Flush Sodium Chloride () 250 mls @ 15 mls/hr IV .[id number] PRN PRN Reason: Additional IVPB Infusion Pantoprazole Sodium 40 mg/ (Sodium Chloride) 110 mls @ 330 mls/hr IV Q24 [facility] Last Infusion: 03/01/20 10:26 Dose: Infused Documented by: Ampicillin Sodium/Sulbactam (Sodium 3 gm/ Sodium Chloride) 112 mls @ 150 mls/hr IV Q6 [facility] Last Infusion: 03/02/20 06:33 Dose: Infused Documented by: Insulin Human Lispro (Insulin Lispro 100 Unit/Ml Insuln.Pen) 0 unit SC Q6 [facility]; Protocol Last Admin: 03/02/20 05:49 Dose: 1 u Documented by: Nystatin (Nystatin Powder 15gm Bottle) 1 applic TOPICAL TID [facility]; Protocol Last Admin: 03/02/20 05:37 Dose: 1 applicatio Documented by: Polyethylene Glycol (Polyethylene Glycol 3350 17 Gm Packet) 17 gm PO DAILY [facility] Last Admin: 03/01/20 22:16 Dose: 17 gm Documented by: Senna/Docusate Sodium (Senna/Docusate Sodium 1 Tablet) 2 tablet PO BID [facility] Last Admin: 03/01/20 22:09 Dose: 2 tablet Documented by: Sodium Chloride (0.9% Saline Lock 10 Ml Syringe) 10 - 40 ml IV UD PRN PRN Reason: SALINE FLUSH Last Admin: 03/02/20 05:34 Dose: 20 ml Documented by: ISAURO Vital Signs/Narrative: Vital Signs Temp Pulse Resp BP Pulse Ox 03/02/20 07:40 97 03/02/20 07:00 100.8 F H 84 26 H 132/53 H 99 03/02/20 06:00 101.4 F H 78 24 H 140/54 H 99 03/02/20 05:30 80 25 H 94 03/02/20 05:17 33 H 03/02/20 05:00 101.2 F H 71 25 H 150/74 H 98 Medical Necessity - Tobacco Use Smoking Status: Unknown if ever smoked Assessment/Plan All Active Problems Lactic acidosis (Acute) Respiratory failure (Acute) Achalasia (Acute) Patient is a 64-year-old lady admitted with progressive shortness of breath with significant hypoxia. Patient apparently cardiopulmonary arrest in route to the hospital CPR initiated by the squad and patient intubated in the ED and admitted to the intensive care unit imaging studies obtained on admission demonstrated suspected achalasia with food impaction. Admitted to the intensive care unit with consultation placed to both pulmonary medicine as well as general surgery 1. Acute hypoxic respiratory failure - Cardiopulmonary arrest as a result of food impaction with subsequent aspiration. Patient was successfully resuscitated using ACLS protocol intubated in the ED and admitted to the intensive care unit. Was started on broad- spectrum antibiotic therapy -02/29/2020 patient remains on the vent. Attempts at weaning this a.m. failed Precedex subsequently added to patient sedation -03/01/2020Patient remains on the vent. Did fail her repeat weaning trial this a.m. as a result of low tidal volumes -03/02/2020; Patient was successfully weaned off the vent after successful weaning trial. 2. Septic shock ?Secondary to aspiration pneumonia management as discussed above in addition to antibiotic therapy 3. Esophageal food impaction ?Suspected to be secondary to achalasia. Consult was placed to Dr. Hawthorne with general surgery who did perform bedside EGD the impacted food was advanced using the EGD scope -Patient to undergo outpatient manometry studies to confirm achalasia 4. Suspected aspiration pneumonia ?Following food impaction patient is currently intubated and started on broad- spectrum antibiotic therapy 5. Cardiopulmonary arrest -Successfully resuscitated using ACLS protocol 6. Lactic acidosis ?Secondary to combination of infection as well as patient having experience cardiopulmonary arrest patient being on Metformin at home 7. Hypertension - Blood pressure in stable 8. Paroxysmal A. fib ?Rate controlled. Patient is on Xarelto at home held placed on therapeutic Lovenox 9. Diabetes mellitus type 2 ?Home medications held please on Accu-Cheks before meals and at bedtime with sliding scale coverage 10. Dyslipidemia ?Patient is on statin therapy plan to resume once patient is extubated 11. DVT prophylaxis ?Therapeutic Lovenox Inpatient E&M: [id number] [facility] [[email or web address]] Hosp L3
--- NOTE | 2020-03-02 08:14 | PCM.PN.INT ---
Subjective: The patient was seen and examined at the bedside this morning. Events from the last 24 hours have been reviewed. The patient currently has a low-grade fever with a T-max overnight of 102 ?F. She remains hemodynamically stable with an FiO2 requirement of 30% on spontaneous mode of mechanical ventilation. The patient passed her spontaneous breathing trial this morning. She is currently documented to be overall net +6.6 L for the hospital admission. Objective: The patient's most recent lab work, culture data and imaging studies have all been personally reviewed. Coronavirus rapid antigen test was negative. Sputum culture was positive for MSSA. General: - - Remains intubated and mechanically ventilated. Currently tolerating spontaneous mode of mechanical ventilation without issue. HEENT: Atraumatic, PERRLA, Normocephalic Oral: No Gingival or Mucosal Lesions/ Ulcerations, - - Stable endotracheal and OG tubes Neck: Supple, No Nodes, Trachea Midline Lungs: No rhonchi, No wheeze, No rales, Diminished Cardiovascular: Regular rate, Regular Rhythm, Normal S1, Normal S2, No murmurs Abdomen: Bowel Sounds Present, Soft, Non Tender Extremities: No clubbing, No cyanosis, No edema Skin: No breakdown Musculoskeletal: No Muscle Wasting Lymphatic: No Cervical, Supraclavicular, or Inguinal Adenopathy Neurological: - - No focal neurological deficits. The patient is alert and able to follow simple commands. Vital Signs Temp Pulse Resp BP Pulse Ox 100.8 F H 97 26 H 132/53 H 99 03/02/20 07:00 03/02/20 07:40 03/02/20 07:00 03/02/20 07:00 03/02/20 07:00 Oxygen Flow Rate (L/min) 15 Oxygen Delivery Method Mechanical Ventilator Weight: 156 lb 11.979 oz Body Mass Index (BMI) 26.6 Intake and Output for Last 24 Hours 02/29/20 03/01/20 03/02/20 23:59 23:59 23:59 Intake Total 3258.69 / 3280.42 2674.73 / 2691.18 795.53 / 795.53 Output Total 1090 / 1090 1000 / 1000 400 / 400 Balance 2168.69 / 2190.42 1674.73 / 1691.18 395.53 / 395.53 Labs (Last 48 Hours) 02/29/20 02/29/2002/28/20 11:18 17:13 23:28 WBC RBC Hgb Hct MCV MCH MCHC RDW Std Deviation RDW Coeff of Jesica Plt Count MPV Immature Gran % (Auto) Neut % (Auto) Lymph % (Auto) [place] % (Auto) Eos % (Auto) Baso % (Auto) Absolute Neuts (auto) Absolute Lymphs (auto) Nucleated RBC % Sodium Potassium Chloride Carbon Dioxide Anion Gap BUN Creatinine Estim Creat Clear Calc Est GFR (MDRD) Af Amer Est GFR (MDRD) Non-Af BUN/Creatinine Ratio Glucose Calcium POC Glucose 159 H 132 H 175 H 03/01/20 03/01/20 03/01/20 03:50 03:50 04:55 WBC 7.5 RBC 3.99 L Hgb 11.0 L Hct 34.2 L MCV 85.7 MCH 27.6 MCHC 32.2 RDW Std Deviation 43.1 RDW Coeff of Jesica 13.9 Plt Count 188 MPV 10.2 Immature Gran % (Auto) 0.400 Neut % (Auto) 78.7 H Lymph % (Auto) 11.1 L [place] % (Auto) 9.3 Eos % (Auto) 0.1 Baso % (Auto) 0.4 Absolute Neuts (auto) 5.9 Absolute Lymphs (auto) 0.83 Nucleated RBC % 0 Sodium 139 Potassium 4.1 Chloride 110 H Carbon Dioxide 25.0 Anion Gap 4 L BUN 23 H Creatinine 0.64 Estim Creat Clear Calc 72.49 Est GFR (MDRD) Af Amer 121 Est GFR (MDRD) Non-Af 100 BUN/Creatinine Ratio 36.2 H Glucose 183 H Calcium 7.7 L POC Glucose 177 H 03/01/20 03/01/20 03/02/20 11:43 16:59 00:33 WBC RBC Hgb Hct MCV MCH MCHC RDW Std Deviation RDW Coeff of Jesica Plt Count MPV Immature Gran % (Auto) Neut % (Auto) Lymph % (Auto) [place] % (Auto) Eos % (Auto) Baso % (Auto) Absolute Neuts (auto) Absolute Lymphs (auto) Nucleated RBC % Sodium Potassium Chloride Carbon Dioxide Anion Gap BUN Creatinine Estim Creat Clear Calc Est GFR (MDRD) Af Amer Est GFR (MDRD) Non-Af BUN/Creatinine Ratio Glucose Calcium POC Glucose 176 H 222 H 195 H 03/02/20 05:47 WBC RBC Hgb Hct MCV MCH MCHC RDW Std Deviation RDW Coeff of Jesica Plt Count MPV Immature Gran % (Auto) Neut % (Auto) Lymph % (Auto) [place] % (Auto) Eos % (Auto) Baso % (Auto) Absolute Neuts (auto) Absolute Lymphs (auto) Nucleated RBC % Sodium Potassium Chloride Carbon Dioxide Anion Gap BUN Creatinine Estim Creat Clear Calc Est GFR (MDRD) Af Amer Est GFR (MDRD) Non-Af BUN/Creatinine Ratio Glucose Calcium POC Glucose 188 H Microbiology 02/27/20 22:40 Blood Culture (Wb) - Anticubital Right Blood Culture - Preliminary No growth in 48 hours. 02/27/20 22:35 Blood Culture (Wb) - Left Wrist Blood Culture - Preliminary No growth in 48 hours. 02/28/20 04:40 Sputum, Induced/Lukens Gram Stain - Final 02/28/20 04:40 Sputum, Induced/Lukens Respiratory Culture - Final Staphylococcus aureus Clinical Impression(s) from Imaging Studies Chest X-Ray 02/27/20 22:25 IMPRESSION: 1. Endotracheal tube abutting the right mainstem bronchi, may retract 3 cm to mid trachea. 2. Prominent interstitial markings and patchy airspace disease within the bilateral lung parenchyma. Electronically Signed: Christophe Hahn DO at 0:18 EST , Service support , Chest X-Ray 02/28/20 00:13 IMPRESSION: Possible mild vascular congestion with bilateral basilar atelectasis. Electronically Signed: Ximena Quiroga MD at 1:34 EST , Service support , Chest CT 02/28/20 00:56 IMPRESSION: Bilateral multifocal pneumonia with areas of superimposed atelectasis as described. Achalasia. No pleural effusion or pneumothorax. Electronically Signed: Ximena Quiroga MD at 1:42 EST , Service support , Chest X-Ray 02/28/20 08:30 IMPRESSION: Vascular congestion. Mild increased markings in the right upper lobe. Follow-up is recommended. Electronically Signed: Alex Dori, at 10:14 EST , Service support , Brain CT 02/28/20 22:24 IMPRESSION: Chronic changes as described. No acute intracranial hemorrhage or space-occupying lesion. Electronically Signed: Ximena Quiroga MD at 1:38 EST , Service support , Medical Necessity - Tobacco Use Smoking Status: Unknown if ever smoked Assessment/Plan All Active Problems Lactic acidosis (Acute) Respiratory failure (Acute) Achalasia (Acute) RECOMMENDATIONS: 1. Proceed with a trial of extubation this morning. 2. Once extubated, wean supplemental oxygen to maintain saturations at or above 90%. 3. Recommend formal swallow evaluation prior to advancing diet. 4. Continue antimicrobials per ID recommendations. 5. Encourage incentive spirometer use and mobilize patient as tolerated. IMPRESSIONS: 1. Acute hypoxemic respiratory failure secondary to aspiration pneumonia The patient initially presented to the hospital after developing an acute hypoxemic respiratory event, likely secondary to acute aspiration leading to PEA cardiac arrest. The patient does have a reported history of choking, likely secondary to the achalasia noted on CT chest. The patient did have retained food product in her esophagus, which was cleared endoscopically. The patient will be continued on antimicrobials per ID recommendations. Given improvement in the patient's respiratory status, will proceed with extubation this morning. Once extubated, supplemental oxygen will be weaned to maintain saturations at or above 90%. 2. Status post PEA cardiac arrest likely precipitated by hypoxemia induced by aspiration Continue current supportive measures as noted above. 3. Septic shock secondary to aspiration pneumonia Improved. The patient has been adequately volume resuscitated and has been weaned from vasopressor support. Continue antimicrobials as noted above. 4. Achalasia/esophageal dilation with retained food product The patient's retained esophageal food products were cleared endoscopically today. She will require further evaluation once extubated prior to advancing diet. 5. Hypertension/diabetes mellitus/hyperlipidemia/paroxysmal atrial fibrillation Complicates care, management, recovery and prognosis. Continue sliding scale insulin coverage. TIME: 34 minutes of critical care time, independent of procedures, was spent addressing the patient's acute hypoxemic respiratory failure, aspiration pneumonia, PEA cardiac arrest, septic shock, achalasia, esophageal dilation, review of all data and collaboration with the care team. [id number]) [id number] Critical care first hour
--- NOTE | 2020-03-02 09:30 | PN_ITS ---
Patient Problems: Active and Suspected Problems Lactic acidosis (Acute) Respiratory failure (Acute) Achalasia (Acute) Reason for Visit: Acute hypoxic respiratory failure Aspiration pneumonia Impacted food Achalasia Vitals/I&O's: Vital Signs Temp Pulse Resp BP Pulse Ox 100.8 F H 97 26 H 132/53 H 99 03/02/20 07:00 03/02/20 07:40 03/02/20 07:00 03/02/20 07:00 03/02/20 07:00 Oxygen Flow Rate (L/min) 15 Oxygen Delivery Method Mechanical Ventilator Weight: 71.1 kg Body Mass Index (BMI) 26.6 Intake and Output for Last 24 Hours 02/29/20 03/01/20 03/02/20 23:59 23:59 23:59 Intake Total 3258.69 / 3280.42 2674.73 / 2691.18 795.53 / 795.53 Output Total 1090 / 1090 1000 / 1000 400 / 400 Balance 2168.69 / 2190.42 1674.73 / 1691.18 395.53 / 395.53 Microbiology Past 72 Hours 02/27/20 22:40 Blood Culture (Wb) - Anticubital Right Blood Culture - Preliminary No growth in 48 hours. 02/27/20 22:35 Blood Culture (Wb) - Left Wrist Blood Culture - Preliminary No growth in 48 hours. 02/28/20 04:40 Sputum, Induced/Lukens Gram Stain - Final 02/28/20 04:40 Sputum, Induced/Lukens Respiratory Culture - Final Staphylococcus aureus Laboratory Results 03/01/20 04:55: POC Glucose 177 H 03/01/20 11:43: POC Glucose 176 H 03/01/20 16:59: POC Glucose 222 H 03/02/20 00:33: POC Glucose 195 H 03/02/20 05:47: POC Glucose 188 H Current Medications Acetaminophen (Acetaminophen 650 Mg/20 Ml Udc) 650 mg GT Q6H PRN PRN PRN Reason: FEVER Last Admin: 03/01/20 15:47 Dose: 650 mg Documented by: Enoxaparin Sodium (Enoxaparin 40 Mg/0.4 Ml Syringe) 40 mg SC DAILY BLESSING Last Admin: 03/01/20 08:51 Dose: 40 mg Documented by: Sodium Chloride () 250 mls @ 15 mls/hr IV .[id number] PRN PRN Reason: Saline Flush Last Infusion: 03/02/20 06:33 Dose: 15 mls/hr Documented by: Sodium Chloride () 250 mls @ 15 mls/hr IV .[id number] PRN PRN Reason: Additional IVPB Infusion Sodium Chloride () 250 mls @ 15 mls/hr IV .[id number] PRN PRN Reason: Saline Flush Sodium Chloride () 250 mls @ 15 mls/hr IV .[id number] PRN PRN Reason: Additional IVPB Infusion Pantoprazole Sodium 40 mg/ (Sodium Chloride) 110 mls @ 330 mls/hr IV Q24 BLESSING Last Infusion: 03/01/20 10:26 Dose: Infused Documented by: Ampicillin Sodium/Sulbactam (Sodium 3 gm/ Sodium Chloride) 112 mls @ 150 mls/hr IV Q6 [facility] Last Infusion: 03/02/20 06:33 Dose: Infused Documented by: Insulin Human Lispro (Insulin Lispro 100 Unit/Ml Insuln.Pen) 0 unit SC Q6 [facility]; Protocol Last Admin: 03/02/20 05:49 Dose: 1 u Documented by: Nystatin (Nystatin Powder 15gm Bottle) 1 applic TOPICAL TID [facility]; Protocol Last Admin: 03/02/20 05:37 Dose: 1 applicatio Documented by: Polyethylene Glycol (Polyethylene Glycol 3350 17 Gm Packet) 17 gm PO DAILY [facility] Last Admin: 03/01/20 22:16 Dose: 17 gm Documented by: Senna/Docusate Sodium (Senna/Docusate Sodium 1 Tablet) 2 tablet PO BID [facility] Last Admin: 03/01/20 22:09 Dose: 2 tablet Documented by: Sodium Chloride (0.9% Saline Lock 10 Ml Syringe) 10 - 40 ml IV UD PRN PRN Reason: SALINE FLUSH Last Admin: 03/02/20 05:34 Dose: 20 ml Documented by: STROKE Vital Signs/Narrative: Vital Signs Temp Pulse Resp BP Pulse Ox 03/02/20 07:40 97 03/02/20 07:00 100.8 F H 84 26 H 132/53 H 99 03/02/20 06:00 101.4 F H 78 24 H 140/54 H 99 Medical Necessity - Tobacco Use Smoking Status: Unknown if ever smoked Assessment/Plan All Active Problems Lactic acidosis (Acute) Respiratory failure (Acute) Achalasia (Acute)
[2020-03-02] MEDS: Enoxaparin 40 MG/0.4 ML Syringe SC (10:56)
[2020-03-02 11:20] LABS: Bedside Glucose 111 mg/dL (70-110)
--- NOTE | 2020-03-02 15:46 | PN.ID_ITS ---
Patient Problems: Active and Suspected Problems Lactic acidosis (Acute) Respiratory failure (Acute) Achalasia (Acute) Subjective: Confused, still high fever - Physical Exam Vitals/I&O's: Vital Signs Temp Pulse Resp BP Pulse Ox 100.4 F H 92 24 H 130/70 H 96 03/02/20 11:00 03/02/20 11:00 03/02/20 11:00 03/02/20 11:00 03/02/20 10:00 Oxygen Flow Rate (L/min) 3 Oxygen Delivery Method Mechanical Ventilator Weight: 71.1 kg Body Mass Index (BMI) 26.6 Intake and Output for Last 24 Hours 02/29/20 03/01/20 03/02/20 23:59 23:59 23:59 Intake Total 3258.69 / 3280.42 2674.73 / 2691.18 795.53 / 795.53 Output Total 1090 / 1090 1000 / 1000 1400 / 1400 Balance 2168.69 / 2190.42 1674.73 / 1691.18 -604.47 / -604.47 General: Confused Lungs: Diminished Cardiovascular: Regular rate, Regular Rhythm Abdomen: Soft, Non Tender, Non-Distended Skin: No rashes Microbiology Past 72 Hours 02/27/20 22:40 Blood Culture (Wb) - Anticubital Right Blood Culture - Preliminary No growth in 48 hours. 02/27/20 22:35 Blood Culture (Wb) - Left Wrist Blood Culture - Preliminary No growth in 48 hours. 02/28/20 04:40 Sputum, Induced/Lukens Gram Stain - Final 02/28/20 04:40 Sputum, Induced/Lukens Respiratory Culture - Final Staphylococcus aureus Laboratory Results 03/01/20 16:59: POC Glucose 222 H 03/02/20 00:33: POC Glucose 195 H 03/02/20 05:47: POC Glucose 188 H 03/02/20 11:13: POC Glucose 111 H Current Medications Acetaminophen (Acetaminophen 650 Mg/20 Ml Udc) 650 mg GT Q6H PRN PRN PRN Reason: FEVER Last Admin: 03/01/20 15:47 Dose: 650 mg Documented by: Enoxaparin Sodium (Enoxaparin 40 Mg/0.4 Ml Syringe) 40 mg SC DAILY BLESSING Last Admin: 03/02/20 10:56 Dose: 40 mg Documented by: Sodium Chloride () 250 mls @ 15 mls/hr IV .[id number] PRN PRN Reason: Saline Flush Last Infusion: 03/02/20 06:33 Dose: 15 mls/hr Documented by: Sodium Chloride () 250 mls @ 15 mls/hr IV .[id number] PRN PRN Reason: Additional IVPB Infusion Sodium Chloride () 250 mls @ 15 mls/hr IV .[id number] PRN PRN Reason: Saline Flush Sodium Chloride () 250 mls @ 15 mls/hr IV .[id number] PRN PRN Reason: Additional IVPB Infusion Pantoprazole Sodium 40 mg/ (Sodium Chloride) 110 mls @ 330 mls/hr IV Q24 [facility] Last Admin: 03/02/20 10:55 Dose: 330 mls/hr Documented by: Ampicillin Sodium/Sulbactam (Sodium 3 gm/ Sodium Chloride) 112 mls @ 150 mls/hr IV Q6 [facility] Last Admin: 03/02/20 11:57 Dose: 150 mls/hr Documented by: Insulin Human Lispro (Insulin Lispro 100 Unit/Ml Insuln.Pen) 0 unit SC Q6 [facility]; Protocol Last Admin: 03/02/20 11:16 Dose: Not Given Documented by: Nystatin (Nystatin Powder 15gm Bottle) 1 applic TOPICAL TID [facility]; Protocol Last Admin: 03/02/20 11:57 Dose: 1 applicatio Documented by: Polyethylene Glycol (Polyethylene Glycol 3350 17 Gm Packet) 17 gm PO DAILY [facility] Last Admin: 03/02/20 11:16 Dose: Not Given Documented by: Senna/Docusate Sodium (Senna/Docusate Sodium 1 Tablet) 2 tablet PO BID [facility] Last Admin: 03/02/20 10:56 Dose: Not Given Documented by: Sodium Chloride (0.9% Saline Lock 10 Ml Syringe) 10 - 40 ml IV UD PRN PRN Reason: SALINE FLUSH Last Admin: 03/02/20 05:34 Dose: 20 ml Documented by: Medical Necessity - Tobacco Use Smoking Status: Unknown if ever smoked Route of nutrition/ use of supplements: [] Nutritional Intake: [] IV Site: [] Hdez Catheter: [] - Assessment/Plan Antibiotics: [] Assessment/Plan: [] Active and Suspected Problems Lactic acidosis (Acute) Respiratory failure (Acute) Achalasia (Acute) Resp failure with aspiration and mssa in sputum - narrowed abx to unasyn on 03/01, still high fever will follow
[2020-03-02 17:05] LABS: Bedside Glucose 104 mg/dL (70-110)
--- NOTE | 2020-03-02 17:12 | ST.MBS ---
Modified Barium Swallow - Patient Information Study Date: 03/02/20 Study Time: 13:35 Direct Billable Minutes: 95 Total Minutes procedure & reportin Diagnosis: Dysphagia (R13.12) Referring Physician: Milton Hawthorne Reason for Referral: The patient is a 64 year old female referred for a modified barium swallow (MBS) study to objectively assess the patients oropharyngeal swallow function under fluoroscopy secondary to reported concerns for PO intake sufficiency, with concerns for achalasia. The patient was admitted to [facility] on 02/28/2020 due to acute hypoxemic respiratory failure secondary to aspiration pneumonia necessitating intubation in the emergency room (extubated 03/02/2020 at 0620) status post PEA cardiac arrest likely precipitated by hypoxemia induced by aspiration, septic shock, and achalasia status post esophageal dilation (02/28/2020) with retained food product. Medical History: Atrial fibrillation with RVR, acute bronchitis, hypertension, hyperlipidemia, chronic insomnia, type II diabetes mellitus - Penetration-Aspiration Scale Score Thin liquid - 5 mL tsp.: Result: 7= enters airways/below vocal folds/not ejected despite effort [place] thickened liquid - 5 mL tsp.: Result: 3= enters airways/above vocal folds/not ejected [place] thickened liquids via cup (single sip): Result: 7= enters airways/below vocal folds/not ejected despite effort Pudding (trial 1): Result: 2= enter airway/above vocal folds/ejected [place]ud[place] (trial 2): Result: 1= does not enter airway - Oral Phase Labial Seal: Interlabial escape, no progression to anterior lip Tongue Control During Bolus Hold: Escape to lateral buccal cavity/floor of mouth Bolus Transport/Lingual Motion: Brisk tongue motion Oral Residue: Trace residue lining oral structures - Pharyngeal Phase Initiation of Pharyngeal Swallow: Bolus head in pyriforms Soft Palate Elevation: No bolus between soft palate and pharyngeal wall Laryngeal Elevation: Partial superior movement thyroid cart/partial apprx aryt-epig petiole Anterior Hyoid Excursion: Partial anterior movement Epiglottic Movement: Partial inversion Laryngeal Vestibule Closure at Height of Swallow: Incomplete; narrow column of air/contrast in laryngeal vestibule Pharyngeal Stripping Wave: Present - diminished Pharyngoesophageal Segment Opening: Parital distension and partial duration; parital obstruction of flow Tongue Base Retraction: Narrow column of contrast between tongue base & post. pharyngeal wall Pharyngeal Residue: Collection of residue within or on pharyngeal structures - Esophageal Phase Esophageal Clearance: Esophageal retention - Diagnosis/Impression Diagnosis: Dysphagia (R13.10) Impression: The patient presents with moderate to severe dysphagia (DSRS: 5; BRS: 2) with grade IV aspiration of thin and nectar thickened liquids. Her swallow profile was marked by discoordinated bolus transportation executed in a rapid / rushed rate directly impacting pharyngeal synchrony leading to pre-prandial aspiration with liquids. She demonstrated reduced hyolaryngeal excursion and duration with insufficient laryngeal vestibule pressure generated to expel penetrated material. The start of the study was complicated by prolonged coughing and gagging after she was placed at a 90 degree seated position with small / fine ?chunks? of emesis produced; this subsided and she stated she was able to proceed with the test, though again began coughing, gagging, and dry heaving and the assessment was subsequently terminated. She was also noted to appear short of breath, with her oxygen saturation varying (though this may have been associated more with her frequent moving and displacement of the monitor). Furthermore, she was noted to demonstrate difficulty remaining upright during the assessment (which complicated multiple images). Her level of cognition precluded implementation of any postural adjustments during our limited trials. She did demonstrate at minimum a delayed esophageal clearance, though given her response during liquid trials and this assessments lack of sensitivity regarding esophageal based etiologies, we did not obtain any substantial images to suggest achalasia. As Dr. Hawthorne previously noted she will require esophageal manometry (gold standard) or upper GI study to assess for achalasia. Her response to aspiration was weak and somewhat delayed, though when considering her recent intubation (~3 days), it is important to noted that her response was overt (vs. silent) even if the volume aspirated was large. If her findings at bedside suggest an improved swallow oropharyngeal phase swallow profile, she may be appropriate for an upper GI study. - Recommendations Comment: DIET TEXTURE RECOMMENDATIONS: cannot recommend PO intake at this time, would consider alternative means of nutrition if tolerated Recommend Repeat Modified Barium Swallow: Yes Need for Skilled Speech Therapy Services: Yes Education Completed: 1. Described result of evaluation., 7. Pt requires further education on strategies & risks. - Image Count: 1,215 - Status Active ST Patient: Active
[2020-03-02 23:50] LABS: Bedside Glucose 92 mg/dL (70-110)
[2020-03-03] VITALS (13 sets, daily range): BP systolic 100–141; BP diastolic 60–83; PULSE 63–102; RESP 16–32; TEMP 36.6–37; O2SAT 92–98; BMI 26.6
[2020-03-03] MEDS: Albuterol 2.5 MG/3 ML VIAL.NEB. INHALATION ×2 (00:27→03:41)
[2020-03-03] MEDS: Nystatin Powder 15gm Bottle 1 APPLIC TOPICAL ×3 (05:16→21:41)
[2020-03-03 06:50] LABS: Bedside Glucose 126 mg/dL (70-110)
--- NOTE | 2020-03-03 08:00 | PN_ITS ---
Patient Problems: Active and Suspected Problems Lactic acidosis (Acute) Respiratory failure (Acute) Achalasia (Acute) Reason for Visit: Dysphagia Acute hypoxic respiratory failure Subjective: Patient did fail her speech and swallow eval performed on 03/02/2019 recommendation is for patient to be kept n.p.o. as well as alternative means of nutrition is considered Objective: GENERAL: awake HEENT: Atraumatic; EYES; Anicteric, Normal Conjunctiva NECK; supple, normal thyroid, RESPIRATORY: Diminished to auscultation CARDIOVASCULAR: Regular S1 S2, GI: soft, normoactive bowel sounds, : No Renal angle tenderness; EXTREMITIES: No edema, no clubbing, MUSCULOSKELETAL: no muscle waisting NEURO: jessica SKIN; no rash Vitals/I&O's: Vital Signs Temp Pulse Resp BP Pulse Ox 97.8 F 89 20 H 100/62 96 03/03/20 05:09 03/03/20 05:09 03/03/20 05:09 03/03/20 05:09 03/03/20 05:09 Oxygen Flow Rate (L/min) 3 Oxygen Delivery Method Nasal Cannula Weight: 68.2 kg Body Mass Index (BMI) 26.6 Intake and Output for Last 24 Hours 03/01/20 03/02/20 03/03/20 23:59 23:59 23:59 Intake Total 2674.73 / 2691.18 1312.78 / 1312.78 112 / 112 Output Total 1000 / 1000 1850 / 1850 275 / 275 Balance 1674.73 / 1691.18 -537.22 / -537.22 -163 / -163 Microbiology Past 72 Hours 02/27/20 22:40 Blood Culture (Wb) - Anticubital Right Blood Culture - Preliminary No growth in 48 hours. 02/27/20 22:35 Blood Culture (Wb) - Left Wrist Blood Culture - Preliminary No growth in 48 hours. 02/28/20 04:40 Sputum, Induced/Lukens Gram Stain - Final 02/28/20 04:40 Sputum, Induced/Lukens Respiratory Culture - Final Staphylococcus aureus Laboratory Results 03/02/20 11:13: POC Glucose 111 H 03/02/20 16:59: POC Glucose 104 03/02/20 23:41: POC Glucose 92 03/03/20 05:11: POC Glucose 126 H Current Medications Acetaminophen (Acetaminophen 650 Mg/20 Ml Udc) 650 mg GT Q6H PRN PRN PRN Reason: FEVER Last Admin: 03/01/20 15:47 Dose: 650 mg Documented by: Albuterol Sulfate (Albuterol 2.5 Mg/3 Ml Vial.Neb.) 2.5 mg INHALATION Q2H PRN PRN PRN Reason: sob/wheezing Last Admin: 03/03/20 03:41 Dose: 2.5 mg Documented by: Enoxaparin Sodium (Enoxaparin 40 Mg/0.4 Ml Syringe) 40 mg SC DAILY [facility] Last Admin: 03/02/20 10:56 Dose: 40 mg Documented by: Sodium Chloride () 250 mls @ 15 mls/hr IV .[id number] PRN PRN Reason: Saline Flush Last Infusion: 03/02/20 20:34 Dose: Infused Documented by: Sodium Chloride () 250 mls @ 15 mls/hr IV .[id number] PRN PRN Reason: Additional IVPB Infusion Sodium Chloride () 250 mls @ 15 mls/hr IV .[id number] PRN PRN Reason: Saline Flush Sodium Chloride () 250 mls @ 15 mls/hr IV .[id number] PRN PRN Reason: Additional IVPB Infusion Pantoprazole Sodium 40 mg/ (Sodium Chloride) 110 mls @ 330 mls/hr IV Q24 [facility] Last Infusion: 03/02/20 20:34 Dose: Infused Documented by: Ampicillin Sodium/Sulbactam (Sodium 3 gm/ Sodium Chloride) 112 mls @ 150 mls/hr IV Q6 [facility] Last Admin: 03/03/20 05:15 Dose: 150 mls/hr Documented by: Insulin Human Lispro (Insulin Lispro 100 Unit/Ml Insuln.Pen) 0 unit SC Q6 [facility]; Protocol Last Admin: 03/03/20 05:15 Dose: Not Given Documented by: Nystatin (Nystatin Powder 15gm Bottle) 1 applic TOPICAL TID [facility]; Protocol Last Admin: 03/03/20 05:16 Dose: 1 applicatio Documented by: Polyethylene Glycol (Polyethylene Glycol 3350 17 Gm Packet) 17 gm PO DAILY [facility] Last Admin: 03/02/20 11:16 Dose: Not Given Documented by: Senna/Docusate Sodium (Senna/Docusate Sodium 1 Tablet) 2 tablet PO BID [facility] Last Admin: 03/02/20 20:38 Dose: Not Given Documented by: Sodium Chloride (0.9% Saline Lock 10 Ml Syringe) 10 - 40 ml IV UD PRN PRN Reason: SALINE FLUSH Last Admin: 03/02/20 20:36 Dose: 10 ml Documented by: Sodium Chloride (0.9% Saline Lock 10 Ml Syringe) 10 - 40 ml IV UD PRN PRN Reason: SALINE FLUSH STROKE Vital Signs/Narrative: Vital Signs Temp Pulse Resp BP Pulse Ox 03/03/20 05:09 97.8 F 89 20 H 100/62 96 Medical Necessity - Tobacco Use Smoking Status: Unknown if ever smoked Assessment/Plan All Active Problems Lactic acidosis (Acute) Respiratory failure (Acute) Achalasia (Acute) Patient is a 64-year-old lady admitted with progressive shortness of breath with significant hypoxia. Patient apparently cardiopulmonary arrest in route to the hospital CPR initiated by the squad and patient intubated in the ED and admitted to the intensive care unit imaging studies obtained on admission demonstrated suspected achalasia with food impaction. Admitted to the intensive care unit with consultation placed to both pulmonary medicine as well as general surgery 1. Acute hypoxic respiratory failure - Cardiopulmonary arrest as a result of food impaction with subsequent aspiration. Patient was successfully resuscitated using ACLS protocol intubated in the ED and admitted to the intensive care unit. Was started on broad- spectrum antibiotic therapy -02/29/2020 patient remains on the vent. Attempts at weaning this a.m. failed Precedex subsequently added to patient sedation -03/01/2020Patient remains on the vent. Did fail her repeat weaning trial this a.m. as a result of low tidal volumes -03/02/2020; Patient was successfully weaned off the vent after successful weaning trial. 2. Septic shock ?Secondary to aspiration pneumonia management as discussed above in addition to antibiotic therapy 3. Esophageal food impaction ?Suspected to be secondary to achalasia. Consult was placed to Dr. Hawthorne with general surgery who did perform bedside EGD the impacted food was advanced using the EGD scope -Patient to undergo outpatient manometry studies to confirm achalasia -03/03/2020; Patient did fail her speech and swallow eval performed on 03/02/2019 recommendation is for patient to be kept n.p.o. as well as alternative means of nutrition is considered plan is for patient to undergo modified barium swallow for subsequent evaluation 4. Suspected aspiration pneumonia ?Following food impaction patient is currently intubated and started on broad- spectrum antibiotic therapy 5. Cardiopulmonary arrest -Successfully resuscitated using ACLS protocol 6. Lactic acidosis ?Secondary to combination of infection as well as patient having experience cardiopulmonary arrest patient being on Metformin at home 7. Hypertension - Blood pressure in stable 8. Paroxysmal A. fib ?Rate controlled. Patient is on Xarelto at home held placed on therapeutic Lovenox 9. Diabetes mellitus type 2 ?Home medications held please on Accu-Cheks before meals and at bedtime with sliding scale coverage 10. Dyslipidemia ?Patient is on statin therapy plan to resume once patient is extubated 11. DVT prophylaxis ?Therapeutic Lovenox Inpatient E&M: [id number] [facility] L3
[2020-03-03] MEDS: Enoxaparin 40 MG/0.4 ML Syringe SC (09:42)
[2020-03-03 10:46] LABS: Absolute Lymphocyte Count 0.54 X10^3/uL (0.83-4.51); Absolute Neutrophil Count 5.2 X10^3/uL (2.0-7.7); Basophil# 0.02 X10^3/uL; Basophil% 0.3 % (0-1); Hematocrit 31.8 % (37-47); Hemoglobin 10.3 g/dL (12.0-15.0); Lymphocyte # 0.54 X10^3/ul (4.0); Lymphocyte % 8.3 % (19-41); Mean Corp Hgb Conc 32.4 g/dL (32-36); Mean Corpuscular Hgb 27.9 pg (27.0-32.0); Mean Corpuscular Volume 86.2 fL (81-99); Monocyte# 0.69 X10^3/uL; Monocyte% 10.6 % (0-10); NRBC Flagged by Analyzer 0 % (0-5); Neutrophil # 5.22 X10^3/uL (2.7-7.7); Neutrophil % 80.2 % (47-70); POSITIVE DIFFERENTIAL YES; Platelet Count 220 K/mm3 (150-450); RBC Distribution Width CV 13.9 % (11.6-14.6); RBC Distribution Width SD 42.9 fl (35.1-43.9); Red Blood Count 3.69 M/mm3 (4.2-5.4); White Blood Count 6.5 K/mm3 (4.4-11.0)
[2020-03-03 10:48] LABS: Differential Indicated SCAN CRITERIA MET
[2020-03-03 11:12] LABS: Platelet Estimate ADEQUATE (ADEQ)
[2020-03-03 11:18] LABS: ALB/GLOB Ratio 0.6 RATIO (0.9-2.4); AST(SGOT) 16 U/L (15-37); Alanine Aminotransfer ALT/SGPT 19 U/L (13-56); Albumin, Serum 2.3 g/dL (3.2-5.0); Alkaline Phosphatase 72 U/L (45-117); Anion Gap 7 (5-15); BUN 17 mg/dL (7-18); BUN/Creat Ratio 40.2 RATIO (10-20); Calcium,Total 8.3 mg/dL (8.5-10.1); Chloride 112 mmol/L (98-107); Creatinine, Serum 0.42 mg/dL (0.55-1.02); EST Glomerular Filtration Rate 159 mL/min (>60); Est Glom Filt Rate - Afr Amer 193 mL/min (>60); Estimated Creatinine Clearance 110.47 ml/min; Globulin 3.6 g/dL (2.2-4.2); Glucose 108 mg/dL (74-106); Magnesium 1.9 mg/dL (1.6-2.6); Potassium 3.6 mmol/L (3.5-5.1); Protein, Total 5.9 g/dL (6.4-8.2); Sodium Level 144 mmol/L (136-145)
--- NOTE | 2020-03-03 11:40 | PCM.NTREPORT ---
Nutrition Therapy Report - History Nutrition Services has been consulted to:: Manage nutrient details of diet order Current diet / nutrition support order:: NPO - Anthropometric Measurements Height:: 5 ft 3 in Weight:: 68.2 kg Body Mass Index (BMI):: 26.6 - Relevant Labs Relevant Labs:: WBC 13.1 K/mm3 (4.4-11.0) H 02/28/20 04:20 RBC 3.69 M/mm3 (4.2-5.4) L 03/03/20 10:03 Hgb 10.3 g/dL (12.0-15.0) L 03/03/20 10:03 Hct 31.8 % (37-47) L 03/03/20 10:03 MCHC 30.7 g/dL (32-36) L 02/27/20 22:35 RDW Std Deviation 45.1 fl (35.1-43.9) H 02/27/20 22:35 Neut % (Auto) 80.2 % (47-70) H 03/03/20 10:03 Lymph % (Auto) 8.3 % (19-41) L 03/03/20 10:03 [place] % (Auto) 10.6 % (0-10) H 03/03/20 10:03 Absolute Neuts (auto) 12.2 X10^3/uL (2.0-7.7) H 02/28/20 04:20 Absolute Lymphs (auto) 0.54 X10^3/uL (0.83-4.51) L 03/03/20 10:03 PT 16.8 SECONDS (11.7-14.9) H 02/27/20 22:35 Chloride 112 mmol/L (98-107) H 03/03/20 10:03 Carbon Dioxide 20.0 mmol/L (21.0-32.0) L 02/27/20 22:35 Anion Gap 4 (5-15) L 03/01/20 03:50 BUN 23 mg/dL (7-18) H 03/01/20 03:50 Creatinine 0.42 mg/dL (0.55-1.02) L 03/03/20 10:03 Est GFR (MDRD) Non-Af 50 mL/min (>60) L 02/27/20 22:35 BUN/Creatinine Ratio 40.2 RATIO (10-20) H 03/03/20 10:03 Glucose 108 mg/dL (74-106) H 03/03/20 10:03 Lactic Acid 7.4 mmol/L (0.4-1.9) H* 02/27/20 22:35 Calcium 8.3 mg/dL (8.5-10.1) L 03/03/20 10:03 Alkaline Phosphatase 119 U/L (45-117) H 02/27/20 22:35 Total Protein 5.9 g/dL (6.4-8.2) L 03/03/20 10:03 Albumin 2.3 g/dL (3.2-5.0) L 03/03/20 10:03 Albumin/Globulin Ratio 0.6 RATIO (0.9-2.4) L 03/03/20 10:03 - Assessment Food / Nutrition-Related History:: MBS study completed 03/02- pt w/ mod-severe oropharyngeal dysphagia- HALL DIRECTOR rec pt remain strict NPO & consideration of alternative means of nutrition and hydration with anticipated lenghy period of continued NPO status and physician concerns for achalasia. Rec initiation of enteral nutrition support w/ consideration of possible PEG placement if in line with pt and family wishes as HALL DIRECTOR anticipates lengthy period of continued NPO status. Per HALL DIRECTOR evaluation this day pt demonstrating overt signs of aspiration. Wt decrease 2.9 kg since previous review. Continues w/ no BM- miralax & senokot at [facility]pass-not given. - Nutrition Diagnosis Problem / Etiology / Signs & Symptoms (PES):: Inadequate oral intake RT swallowing difficulty AEB pt w/ mod-severe oropharyngeal dysphagia requiring strict NPO status. Evidence of Malnutrition Exists:: No - Nutrition Intervention Nutrition Prescription:: [id number] calories, 80-100 grams protein - Food / Nutrient Delivery Interventions Nutrition support ordered as / adjusted to:: Rec consideration of NGT/PEG tube for nutrition support as HALL DIRECTOR anticipates lengthy period of continued NPO status. - consult RDN for further recommendations as indicated. Nutrition education provided?: No - MNT Monitoring Further MNT monitoring and evaluation required?: Yes MNT Follow-up in:: 1-2 days
[2020-03-03 12:15] LABS: Bedside Glucose 114 mg/dL (70-110)
[2020-03-03 17:16] LABS: Bedside Glucose 96 mg/dL (70-110)
--- NOTE | 2020-03-03 19:00 | PCS.PANDOC ---
PANDEMIC DOCUMENTATION INITIATED: Date: 02/28/20 Time: 02:31
[2020-03-04] VITALS (10 sets, daily range): BP systolic 129–140; BP diastolic 65–86; PULSE 67–94; RESP 16–28; TEMP 36.1–37; O2SAT 94–97
[2020-03-04] MEDS: 0.9% Saline Lock 10 ML Syringe IV ×2 (00:33→06:03)
[2020-03-04] MEDS: Albuterol 2.5 MG/3 ML VIAL.NEB. INHALATION (00:33)
--- NOTE | 2020-03-04 00:50 | CPS ---
PATIENT RECIEVED PRN TREATMENT DUE TO SOB.
[2020-03-04 00:55] LABS: Bedside Glucose 129 mg/dL (70-110)
[2020-03-04 05:16] LABS: Absolute Lymphocyte Count 0.43 X10^3/uL (0.83-4.51); Absolute Neutrophil Count 5.1 X10^3/uL (2.0-7.7); Basophil# 0.02 X10^3/uL; Basophil% 0.3 % (0-1); Eosinophil# 0.01 X10^3/uL; Eosinophils% 0.2 % (0-5); Hematocrit 35.6 % (37-47); Hemoglobin 10.9 g/dL (12.0-15.0); Lymphocyte # 0.43 X10^3/ul (4.0); Lymphocyte % 6.9 % (19-41); Mean Corp Hgb Conc 30.6 g/dL (32-36); Mean Corpuscular Volume 88.1 fL (81-99); Mean Platelet Vol. 10.7 fl (6.2-12.0); Monocyte# 0.63 X10^3/uL; Monocyte% 10.1 % (0-10); NRBC Flagged by Analyzer 0 % (0-5); Neutrophil # 5.11 X10^3/uL (2.7-7.7); POSITIVE DIFFERENTIAL YES; Platelet Count 224 K/mm3 (150-450); RBC Distribution Width SD 44.8 fl (35.1-43.9); Red Blood Count 4.04 M/mm3 (4.2-5.4); White Blood Count 6.2 K/mm3 (4.4-11.0)
[2020-03-04 05:25] LABS: Differential Indicated SCAN CRITERIA MET
[2020-03-04 05:35] LABS: ALB/GLOB Ratio 0.6 RATIO (0.9-2.4); AST(SGOT) 18 U/L (15-37); Alanine Aminotransfer ALT/SGPT 19 U/L (13-56); Albumin, Serum 2.4 g/dL (3.2-5.0); Alkaline Phosphatase 73 U/L (45-117); Anion Gap 6 (5-15); BUN 18 mg/dL (7-18); BUN/Creat Ratio 40.6 RATIO (10-20); Calcium,Total 8.4 mg/dL (8.5-10.1); Chloride 110 mmol/L (98-107); Creatinine, Serum 0.44 mg/dL (0.55-1.02); EST Glomerular Filtration Rate 151 mL/min (>60); Est Glom Filt Rate - Afr Amer 183 mL/min (>60); Estimated Creatinine Clearance 105.45 ml/min; Globulin 3.9 g/dL (2.2-4.2); Glucose 146 mg/dL (74-106); Potassium 3.6 mmol/L (3.5-5.1); Protein, Total 6.3 g/dL (6.4-8.2); Sodium Level 143 mmol/L (136-145)
[2020-03-04] MEDS: Nystatin Powder 15gm Bottle 1 APPLIC TOPICAL ×3 (06:01→20:29)
--- NOTE | 2020-03-04 06:10 | PCM.PN.PUL ---
Patient Problems: Active and Suspected Problems Lactic acidosis (Acute) Respiratory failure (Acute) Achalasia (Acute) Subjective: The patient was seen and examined at the bedside this morning. Events from the last 24 hours have been reviewed. The patient is currently afebrile, hemodynamically stable and maintaining appropriate oxygen saturations on 3 L/min via nasal cannula. The patient is currently documented to be overall net +6.6 L for the hospital admission. The patient remains n.p.o. Objective: The patient's most recent lab work, culture data and imaging studies have all been personally reviewed. Coronavirus rapid antigen test was negative. Sputum culture was positive for MSSA. - Physical Exam Vitals/I&O's: Vital Signs Temp Pulse Resp BP Pulse Ox 98.6 F 88 17 129/65 H 97 03/04/20 02:27 03/04/20 03:34 03/04/20 02:27 03/04/20 02:27 03/04/20 02:27 Oxygen Flow Rate (L/min) 3 Oxygen Delivery Method Nasal Cannula Weight: 150 lb 5.684 oz Body Mass Index (BMI) 26.6 Intake and Output for Last 24 Hours 03/02/20 03/03/20 03/04/20 23:59 23:59 23:59 Intake Total 1312.78 / 1312.78 558 / 558 1332 / 1332 Output Total 1850 / 1850 575 / 575 375 / 375 Balance -537.22 / -537.22 -17 / -17 957 / 957 General: Alert, Cooperative, No apparent distress, - - Sitting in bedside recliner HEENT: Atraumatic, Normocephalic Oral: Moist Mucosa Neck: Supple, No Nodes, Trachea Midline Lungs: Diminished Cardiovascular: Regular rate, Regular Rhythm Abdomen: Bowel Sounds Present, Soft, Non Tender Extremities: No clubbing, No cyanosis, No edema Skin: No breakdown Musculoskeletal: No Muscle Wasting Lymphatic: No Cervical, Supraclavicular, or Inguinal Adenopathy Neurological: - - No focal neurological deficits. Psych/Mental Status: Normal Affect Labs (Last 48 Hours) 03/02/20 03/02/20 03/02/20 11:13 16:59 23:41 WBC RBC Hgb Hct MCV MCH MCHC RDW Std Deviation RDW Coeff of Jesica Plt Count MPV Immature Gran % (Auto) Neut % (Auto) Lymph % (Auto) [place] % (Auto) Eos % (Auto) Baso % (Auto) Absolute Neuts (auto) Absolute Lymphs (auto) Nucleated RBC % Platelet Estimate Sodium Potassium Chloride Carbon Dioxide Anion Gap BUN Creatinine Estim Creat Clear Calc Est GFR (MDRD) Af Amer Est GFR (MDRD) Non-Af BUN/Creatinine Ratio Glucose Calcium Magnesium Total Bilirubin AST ALT Alkaline Phosphatase Total Protein Albumin Globulin Albumin/Globulin Ratio POC Glucose 111 H 104 92 03/03/20 03/03/20 03/03/20 05:11 10:03 10:03 WBC 6.5 RBC 3.69 L Hgb 10.3 L Hct 31.8 L MCV 86.2 MCH 27.9 MCHC 32.4 RDW Std Deviation 42.9 RDW Coeff of Jesica 13.9 Plt Count 220 MPV 11.0 Immature Gran % (Auto) 0.600 Neut % (Auto) 80.2 H Lymph % (Auto) 8.3 L [place] % (Auto) 10.6 H Eos % (Auto) 0.0 Baso % (Auto) 0.3 Absolute Neuts (auto) 5.2 Absolute Lymphs (auto) 0.54 L Nucleated RBC % 0 Platelet Estimate ADEQUATE Sodium 144 Potassium 3.6 Chloride 112 H Carbon Dioxide 25.0 Anion Gap 7 BUN 17 Creatinine 0.42 L Estim Creat Clear Calc 110.47 Est GFR (MDRD) Af Amer 193 Est GFR (MDRD) Non-Af 159 BUN/Creatinine Ratio 40.2 H Glucose 108 H Calcium 8.3 L Magnesium 1.9 Total Bilirubin 0.40 AST 16 ALT 19 Alkaline Phosphatase 72 Total Protein 5.9 L Albumin 2.3 L Globulin 3.6 Albumin/Globulin Ratio 0.6 L POC Glucose 126 H 03/03/20 03/03/20 03/04/20 12:04 17:01 00:39 WBC RBC Hgb Hct MCV MCH MCHC RDW Std Deviation RDW Coeff of Jesica Plt Count MPV Immature Gran % (Auto) Neut % (Auto) Lymph % (Auto) [place] % (Auto) Eos % (Auto) Baso % (Auto) Absolute Neuts (auto) Absolute Lymphs (auto) Nucleated RBC % Platelet Estimate Sodium Potassium Chloride Carbon Dioxide Anion Gap BUN Creatinine Estim Creat Clear Calc Est GFR (MDRD) Af Amer Est GFR (MDRD) Non-Af BUN/Creatinine Ratio Glucose Calcium Magnesium Total Bilirubin AST ALT Alkaline Phosphatase Total Protein Albumin Globulin Albumin/Globulin Ratio POC Glucose 114 H 96 129 H 03/04/20 03/04/20 04:21 04:21 WBC 6.2 RBC 4.04 L Hgb 10.9 L Hct 35.6 L MCV 88.1 MCH 27.0 MCHC 30.6 L D RDW Std Deviation 44.8 H RDW Coeff of Jesica 14.0 Plt Count 224 MPV 10.7 Immature Gran % (Auto) 0.500 Neut % (Auto) 82.0 H Lymph % (Auto) 6.9 L [place] % (Auto) 10.1 H Eos % (Auto) 0.2 Baso % (Auto) 0.3 Absolute Neuts (auto) 5.1 Absolute Lymphs (auto) 0.43 L Nucleated RBC % 0 Platelet Estimate Sodium 143 Potassium 3.6 Chloride 110 H Carbon Dioxide 27.0 Anion Gap 6 BUN 18 Creatinine 0.44 L Estim Creat Clear Calc 105.45 Est GFR (MDRD) Af Amer 183 Est GFR (MDRD) Non-Af 151 BUN/Creatinine Ratio 40.6 H Glucose 146 H Calcium 8.4 L Magnesium Total Bilirubin 0.30 AST 18 ALT 19 Alkaline Phosphatase 73 Total Protein 6.3 L Albumin 2.4 L Globulin 3.9 Albumin/Globulin Ratio 0.6 L POC Glucose Clinical Impression(s) from Imaging Studies Chest X-Ray 02/27/20 22:25 IMPRESSION: 1. Endotracheal tube abutting the right mainstem bronchi, may retract 3 cm to mid trachea. 2. Prominent interstitial markings and patchy airspace disease within the bilateral lung parenchyma. Electronically Signed: Christophe Hahn DO at 0:18 EST , Service support , Chest X-Ray 02/28/20 00:13 IMPRESSION: Possible mild vascular congestion with bilateral basilar atelectasis. Electronically Signed: Ximena Quiroga MD at 1:34 EST , Service support , Chest CT 02/28/20 00:56 IMPRESSION: Bilateral multifocal pneumonia with areas of superimposed atelectasis as described. Achalasia. No pleural effusion or pneumothorax. Electronically Signed: Ximena Quiroga MD at 1:42 EST , Service support , Chest X-Ray 02/28/20 08:30 IMPRESSION: Vascular congestion. Mild increased markings in the right upper lobe. Follow-up is recommended. Electronically Signed: Alex Meadows, at 10:14 EST , Service support , Brain CT 02/28/20 22:24 IMPRESSION: Chronic changes as described. No acute intracranial hemorrhage or space-occupying lesion. Electronically Signed: Ximena Quiroga MD at 1:38 EST , Service support , Current Medications Acetaminophen (Acetaminophen 650 Mg/20 Ml Udc) 650 mg GT Q6H PRN PRN PRN Reason: FEVER Last Admin: 03/01/20 15:47 Dose: 650 mg Documented by: Albuterol Sulfate (Albuterol 2.5 Mg/3 Ml Vial.Neb.) 2.5 mg INHALATION Q2H PRN PRN PRN Reason: sob/wheezing Last Admin: 03/04/20 00:33 Dose: 2.5 mg Documented by: Enoxaparin Sodium (Enoxaparin 40 Mg/0.4 Ml Syringe) 40 mg SC DAILY BLESSING Last Admin: 03/03/20 09:42 Dose: 40 mg Documented by: Sodium Chloride () 250 mls @ 15 mls/hr IV .[id number] PRN PRN Reason: Saline Flush Last Infusion: 03/02/20 20:34 Dose: Infused Documented by: Sodium Chloride () 250 mls @ 15 mls/hr IV .[id number] PRN PRN Reason: Additional IVPB Infusion Sodium Chloride () 250 mls @ 15 mls/hr IV .[id number] PRN PRN Reason: Saline Flush Sodium Chloride () 250 mls @ 15 mls/hr IV .[id number] PRN PRN Reason: Additional IVPB Infusion Pantoprazole Sodium 40 mg/ (Sodium Chloride) 110 mls @ 330 mls/hr IV Q24 BLESSING Last Infusion: 03/03/20 15:35 Dose: Infused Documented by: Ampicillin Sodium/Sulbactam (Sodium 3 gm/ Sodium Chloride) 112 mls @ 150 mls/hr IV Q6 BLESSING Last Infusion: 03/04/20 01:30 Dose: Infused Documented by: Potassium Chloride/Dextrose/Sod Cl (Kcl 20meq In D5.45ns 1000ml) 1,000 mls @ 125 mls/hr IV .Q8H BLESSING Last Admin: 03/04/20 02:45 Dose: 125 mls/hr Documented by: Insulin Human Lispro (Insulin Lispro 100 Unit/Ml Insuln.Pen) 0 unit SC Q6 [facility]; Protocol Last Admin: 03/04/20 00:40 Dose: Not Given Documented by: Nystatin (Nystatin Powder 15gm Bottle) 1 applic TOPICAL TID [facility]; Protocol Last Admin: 03/03/20 21:41 Dose: 1 applicatio Documented by: Polyethylene Glycol (Polyethylene Glycol 3350 17 Gm Packet) 17 gm PO DAILY [facility] Last Admin: 03/03/20 09:43 Dose: Not Given Documented by: Senna/Docusate Sodium (Senna/Docusate Sodium 1 Tablet) 2 tablet PO BID [facility] Last Admin: 03/03/20 21:34 Dose: Not Given Documented by: Sodium Chloride (0.9% Saline Lock 10 Ml Syringe) 10 - 40 ml IV UD PRN PRN Reason: SALINE FLUSH Last Admin: 03/04/20 00:33 Dose: 10 ml Documented by: Sodium Chloride (0.9% Saline Lock 10 Ml Syringe) 10 - 40 ml IV UD PRN PRN Reason: SALINE FLUSH Medical Necessity - Tobacco Use Smoking Status: Unknown if ever smoked Assessment/Plan All Active Problems Lactic acidosis (Acute) Respiratory failure (Acute) Achalasia (Acute) RECOMMENDATIONS: 1. Continue antimicrobials to complete treatment course per ID recommendations. 2. Continue patient n.p.o. pending further swallow work-up. Consider alternative means of nutrition. Will defer to hospitalist. 3. Wean supplemental oxygen to maintain saturations at or above 90%. 4. Encourage incentive spirometer use and mobilize patient as tolerated. 5. Will sign off from a critical care perspective. Please call with any additional questions. IMPRESSIONS: 1. Acute hypoxemic respiratory failure secondary to aspiration pneumonia The patient initially presented to the hospital after developing an acute hypoxemic respiratory event, likely secondary to acute aspiration leading to PEA cardiac arrest. The patient does have a reported history of choking, likely secondary to the achalasia noted on CT chest. The patient did have retained food product in her esophagus, which was cleared endoscopically. The patient was able to be successfully extubated on March 02. Respiratory status remains stable. Plan to wean supplemental oxygen to maintain saturations at or above 90%. Additional swallow work-up per surgery and hospitalist. Consider alternative means of nutrition, in the interim. Encourage incentive spirometer use and mobilize patient as tolerated. 2. Status post PEA cardiac arrest likely precipitated by hypoxemia induced by aspiration Continue current supportive measures as noted above. 3. Septic shock secondary to aspiration pneumonia Improved. The patient has been adequately volume resuscitated and has been weaned from vasopressor support. Continue antimicrobials as noted above. 4. Achalasia/esophageal dilation with retained food product The patient's retained esophageal food products were cleared endoscopically. She will require further dysphagia evaluation. 5. Hypertension/diabetes mellitus/hyperlipidemia/paroxysmal atrial fibrillation Complicates care, management, recovery and prognosis. Continue sliding scale insulin coverage. This note was generated with [employer] dictation software. It may contain incorrect words, spelling, and punctuation that were not noted in checking the note before signing. Inpatient E&M: 24002 [facility] Hosp L2
[2020-03-04 06:21] LABS: Bedside Glucose 138 mg/dL (70-110)
[2020-03-04] MEDS: Enoxaparin 40 MG/0.4 ML Syringe SC (10:20)
--- NOTE | 2020-03-04 11:47 | PCM.PROGNOTE ---
<Kylah Whalen INDUSTRIAL RELATIONS MANAGER - Last Filed: 03/04/20 11:57> Patient Problems: Active and Suspected Problems Lactic acidosis (Acute) Respiratory failure (Acute) Achalasia (Acute) Subjective: Patient seen and examined. Denies shortness of breath, cough, fever, chills. No acute events overnight. Continues to have spastic movements. - Physical Exam Vitals/I&O's: Vital Signs Temp Pulse Resp BP Pulse Ox 96.9 F L 79 18 129/77 H 95 03/04/20 09:00 03/04/20 09:00 03/04/20 09:00 03/04/20 09:00 03/04/20 09:00 Oxygen Flow Rate (L/min) 3 Oxygen Delivery Method Room Air Weight: 150 lb 5.684 oz Body Mass Index (BMI) 26.6 Intake and Output for Last 24 Hours 03/02/20 03/03/20 03/04/20 23:59 23:59 23:59 Intake Total 1312.78 / 1312.78 558 / 558 2267.42 / 2267.42 Output Total 1850 / 1850 575 / 575 375 / 375 Balance -537.22 / -537.22 -17 / -17 1892.42 / 1892.42 General: Alert, Oriented x3, Cooperative HEENT: Atraumatic, PERRLA, EOMI, Normocephalic Oral: Dry Mucosa Neck: Supple, No JVD, Negative Carotid Bruits Lungs: Clear to auscultation, Diminished Cardiovascular: Regular rate, No murmurs Abdomen: Bowel Sounds Present, Soft, Non Tender, Non-Distended Extremities: No clubbing, No cyanosis, No edema, Capillary Refill Less than 3 Seconds Skin: No rashes, No breakdown Musculoskeletal: No Tenderness to Palpation of Joints or Extremities Neurological: Cranial nerves II-XII grossly intact, Neuro grossly intact Psych/Mental Status: Normal Affect, Appropriate Microbiology Past 72 Hours 02/27/20 22:40 Blood Culture (Wb) - Anticubital Right Blood Culture - Final No growth in 5 days. 02/27/20 22:35 Blood Culture (Wb) - Left Wrist Blood Culture - Final No growth in 5 days. 02/28/20 04:40 Sputum, Induced/Lukens Gram Stain - Final 02/28/20 04:40 Sputum, Induced/Lukens Respiratory Culture - Final Staphylococcus aureus Laboratory Results 03/03/20 12:04: POC Glucose 114 H 03/03/20 17:01: POC Glucose 96 03/04/20 00:39: POC Glucose 129 H 03/04/20 04:21: WBC 6.2, RBC 4.04 L, Hgb 10.9 L, Hct 35.6 L, MCV 88.1, MCH 27.0, MCHC 30.6 L D, RDW Std Deviation 44.8 H, RDW Coeff of Jesica 14.0, Plt Count 224, MPV 10.7, Immature Gran % (Auto) 0.500, Neut % (Auto) 82.0 H, Lymph % (Auto) 6.9 L, [place] % (Auto) 10.1 H, Eos % (Auto) 0.2, Baso % (Auto) 0.3, Absolute Neuts (auto) 5.1, Absolute Lymphs (auto) 0.43 L, Nucleated RBC % 0 03/04/20 04:21: Sodium 143, Potassium 3.6, Chloride 110 H, Carbon Dioxide 27.0, Anion Gap 6, BUN 18, Creatinine 0.44 L, Estim Creat Clear Calc 105.45, Est GFR (MDRD) Af Amer 183, Est GFR (MDRD) Non-Af 151, BUN/Creatinine Ratio 40.6 H, Glucose 146 H, Calcium 8.4 L, Total Bilirubin 0.30, AST 18, ALT 19, Alkaline Phosphatase 73, Total Protein 6.3 L, Albumin 2.4 L, Globulin 3.9, Albumin/Globulin Ratio 0.6 L 03/04/20 05:59: POC Glucose 138 H Current Medications Acetaminophen (Acetaminophen 650 Mg/20 Ml Udc) 650 mg GT Q6H PRN PRN PRN Reason: FEVER Last Admin: 03/01/20 15:47 Dose: 650 mg Documented by: Albuterol Sulfate (Albuterol 2.5 Mg/3 Ml Vial.Neb.) 2.5 mg INHALATION Q2H PRN PRN PRN Reason: sob/wheezing Last Admin: 03/04/20 00:33 Dose: 2.5 mg Documented by: Enoxaparin Sodium (Enoxaparin 40 Mg/0.4 Ml Syringe) 40 mg SC DAILY BLESSING Last Admin: 03/04/20 10:20 Dose: 40 mg Documented by: Sodium Chloride () 250 mls @ 15 mls/hr IV .[id number] PRN PRN Reason: Saline Flush Last Infusion: 03/02/20 20:34 Dose: Infused Documented by: Sodium Chloride () 250 mls @ 15 mls/hr IV .[id number] PRN PRN Reason: Additional IVPB Infusion Sodium Chloride () 250 mls @ 15 mls/hr IV .[id number] PRN PRN Reason: Saline Flush Sodium Chloride () 250 mls @ 15 mls/hr IV .[id number] PRN PRN Reason: Additional IVPB Infusion Pantoprazole Sodium 40 mg/ (Sodium Chloride) 110 mls @ 330 mls/hr IV Q24 BLESSING Last Admin: 03/04/20 10:14 Dose: 330 mls/hr Documented by: Ampicillin Sodium/Sulbactam (Sodium 3 gm/ Sodium Chloride) 112 mls @ 150 mls/hr IV Q6 [facility]ESSING Last Admin: 03/04/20 06:04 Dose: 150 mls/hr Documented by: Potassium Chloride/Dextrose/Sod Cl (Kcl 20meq In D5.45ns 1000ml) 1,000 mls @ 125 mls/hr IV .Q8H BLESSING Last Admin: 03/04/20 10:14 Dose: 125 mls/hr Documented by: Insulin Human Lispro (Insulin Lispro 100 Unit/Ml Insuln.Pen) 0 unit SC Q6 [facility] [place]; Protocol Last Admin: 03/04/20 06:00 Dose: Not Given Documented by: Nystatin (Nystatin Powder 15gm Bottle) 1 applic TOPICAL TID [facility] [place]; Protocol Last Admin: 03/04/20 06:01 Dose: 1 applicatio Documented by: Polyethylene Glycol (Polyethylene Glycol 3350 17 Gm Packet) 17 gm PO DAILY [facility] [place] Last Admin: 03/04/20 08:13 Dose: Not Given Documented by: Senna/Docusate Sodium (Senna/Docusate Sodium 1 Tablet) 2 tablet PO BID [facility] [place] Last Admin: 03/04/20 08:13 Dose: Not Given Documented by: Sodium Chloride (0.9% Saline Lock 10 Ml Syringe) 10 - 40 ml IV UD PRN PRN Reason: SALINE FLUSH Last Admin: 03/04/20 06:03 Dose: 10 ml Documented by: Sodium Chloride (0.9% Saline Lock 10 Ml Syringe) 10 - 40 ml IV UD PRN PRN Reason: SALINE FLUSH Medical Necessity - Tobacco Use Smoking Status: Unknown if ever smoked Assessment/Plan All Active Problems Lactic acidosis (Acute) Respiratory failure (Acute) Achalasia (Acute) 1. Acute hypoxic respiratory failure secondary to aspiration pneumonia, complicated by achalasia-extubated 03/02/2020. On IV Unasyn. Speech therapy following. Plan for upper GI/barium swallow 03/05. Remain NPO. Pending further swallow studies, patient may need considered for NGT/PEG tube. General surgery following. ID following. 2. Septic shock secondary to aspiration pneumonia-improved. Continue treatment per above. 3. Cardiopulmonary arrest-secondary to above. Successful resuscitation. 4. Hypertension-stable, resume home oral regimen when able. 5. Hyperlipidemia-resume statin when able to tolerate oral intake. 6. Paroxysmal atrial fibrillation-Xarelto on hold. Rate controlled, not on rate control regimen. 7. Type 2 diabetes [id number] with sliding scale insulin. Oral regimen on hold. DVT prophylaxis-Lovenox subcu Discharge planning: Pending further swallow eval. This patient was seen by PASTORA Contreras under the supervision of Dr. Lackey. <Beni Lackey - Last Filed: 03/04/20 12:11> - Physical Exam Vitals/I&O's: Vital Signs Temp Pulse Resp BP Pulse Ox 96.9 F L 79 18 129/77 H 95 03/04/20 09:00 03/04/20 09:00 03/04/20 09:00 03/04/20 09:00 03/04/20 09:00 Oxygen Flow Rate (L/min) 3 Oxygen Delivery Method Room Air Weight: 68.2 kg Body Mass Index (BMI) 26.6 Intake and Output for Last 24 Hours 03/02/20 03/03/20 03/04/20 23:59 23:59 23:59 Intake Total 1312.78 / 1312.78 558 / 558 2267.42 / 2267.42 Output Total 1850 / 1850 575 / 575 375 / 375 Balance -537.22 / -537.22 -17 / -17 1892.42 / 1892.42 Microbiology Past 72 Hours 02/27/20 22:40 Blood Culture (Wb) - Anticubital Right Blood Culture - Final No growth in 5 days. 02/27/20 22:35 Blood Culture (Wb) - Left Wrist Blood Culture - Final No growth in 5 days. 02/28/20 04:40 Sputum, Induced/Lukens Gram Stain - Final 02/28/20 04:40 Sputum, Induced/Lukens Respiratory Culture - Final Staphylococcus aureus Laboratory Results 03/03/20 12:04: POC Glucose 114 H 03/03/20 17:01: POC Glucose 96 03/04/20 00:39: POC Glucose 129 H 03/04/20 04:21: WBC 6.2, RBC 4.04 L, Hgb 10.9 L, Hct 35.6 L, MCV 88.1, MCH 27.0, MCHC 30.6 L D, RDW Std Deviation 44.8 H, RDW Coeff of Jesica 14.0, Plt Count 224, MPV 10.7, Immature Gran % (Auto) 0.500, Neut % (Auto) 82.0 H, Lymph % (Auto) 6.9 L, [place] % (Auto) 10.1 H, Eos % (Auto) 0.2, Baso % (Auto) 0.3, Absolute Neuts (auto) 5.1, Absolute Lymphs (auto) 0.43 L, Nucleated RBC % 0 03/04/20 04:21: Sodium 143, Potassium 3.6, Chloride 110 H, Carbon Dioxide 27.0, Anion Gap 6, BUN 18, Creatinine 0.44 L, Estim Creat Clear Calc 105.45, Est GFR (MDRD) Af Amer 183, Est GFR (MDRD) Non-Af 151, BUN/Creatinine Ratio 40.6 H, Glucose 146 H, Calcium 8.4 L, Total Bilirubin 0.30, AST 18, ALT 19, Alkaline Phosphatase 73, Total Protein 6.3 L, Albumin 2.4 L, Globulin 3.9, Albumin/Globulin Ratio 0.6 L 03/04/20 05:59: POC Glucose 138 H 03/04/20 11:59: POC Glucose 134 H Current Medications Acetaminophen (Acetaminophen 650 Mg/20 Ml Udc) 650 mg GT Q6H PRN PRN PRN Reason: FEVER Last Admin: 03/01/20 15:47 Dose: 650 mg Documented by: Albuterol Sulfate (Albuterol 2.5 Mg/3 Ml Vial.Neb.) 2.5 mg INHALATION Q2H PRN PRN PRN Reason: sob/wheezing Last Admin: 03/04/20 00:33 Dose: 2.5 mg Documented by: Enoxaparin Sodium (Enoxaparin 40 Mg/0.4 Ml Syringe) 40 mg SC DAILY [facility] Last Admin: 03/04/20 10:20 Dose: 40 mg Documented by: Sodium Chloride () 250 mls @ 15 mls/hr IV .[id number] PRN PRN Reason: Saline Flush Last Infusion: 03/02/20 20:34 Dose: Infused Documented by: Sodium Chloride () 250 mls @ 15 mls/hr IV .[id number] PRN PRN Reason: Additional IVPB Infusion Sodium Chloride () 250 mls @ 15 mls/hr IV .[id number] PRN PRN Reason: Saline Flush Sodium Chloride () 250 mls @ 15 mls/hr IV .[id number] PRN PRN Reason: Additional IVPB Infusion Pantoprazole Sodium 40 mg/ (Sodium Chloride) 110 mls @ 330 mls/hr IV Q24 [facility] Last Admin: 03/04/20 10:14 Dose: 330 mls/hr Documented by: Ampicillin Sodium/Sulbactam (Sodium 3 gm/ Sodium Chloride) 112 mls @ 150 mls/hr IV Q6 [facility] [place] Last Admin: 03/04/20 06:04 Dose: 150 mls/hr Documented by: Potassium Chloride/Dextrose/Sod Cl (Kcl 20meq In D5.45ns 1000ml) 1,000 mls @ 125 mls/hr IV .Q8H [facility] [place] Last Admin: 03/04/20 10:14 Dose: 125 mls/hr Documented by: Insulin Human Lispro (Insulin Lispro 100 Unit/Ml Insuln.Pen) 0 unit SC Q6 [facility] [place]; Protocol Last Admin: 03/04/20 06:00 Dose: Not Given Documented by: Nystatin (Nystatin Powder 15gm Bottle) 1 applic TOPICAL TID [facility] [place]; Protocol Last Admin: 03/04/20 06:01 Dose: 1 applicatio Documented by: Polyethylene Glycol (Polyethylene Glycol 3350 17 Gm Packet) 17 gm PO DAILY [facility] Last Admin: 03/04/20 08:13 Dose: Not Given Documented by: Senna/Docusate Sodium (Senna/Docusate Sodium 1 Tablet) 2 tablet PO BID [facility] Last Admin: 03/04/20 08:13 Dose: Not Given Documented by: Sodium Chloride (0.9% Saline Lock 10 Ml Syringe) 10 - 40 ml IV UD PRN PRN Reason: SALINE FLUSH Last Admin: 03/04/20 06:03 Dose: 10 ml Documented by: Sodium Chloride (0.9% Saline Lock 10 Ml Syringe) 10 - 40 ml IV UD PRN PRN Reason: SALINE FLUSH Assessment/Plan This patient was seen in conjunction with PASTORA Contreras . I have independently interviewed and examined the patient and reviewed pertinent historical, laboratory, and other data. Please refer to PASTORA Contreras note for details of this patient's presentation, findings, and recommendations. I have reviewed PASTORA Contreras note and concur with documented findings. Patient is a 64-year-old lady admitted with progressive shortness of breath with significant hypoxia. Patient apparently cardiopulmonary arrest in route to the hospital CPR initiated by the squad and patient intubated in the ED and admitted to the intensive care unit imaging studies obtained on admission demonstrated suspected achalasia with food impaction. Admitted to the intensive care unit with consultation placed to both pulmonary medicine as well as general surgery Physical exam; GENERAL: awake HEENT: Atraumatic; EYES; Anicteric, Normal Conjunctiva NECK; supple, normal thyroid, RESPIRATORY: Diminished to auscultation CARDIOVASCULAR: Regular S1 S2, GI: soft, normoactive bowel sounds, : No Renal angle tenderness; EXTREMITIES: No edema, no clubbing, MUSCULOSKELETAL: no muscle waisting NEURO: awake SKIN; no rash 1. Acute hypoxic respiratory failure 2. Septic shock 3. Esophageal food impaction ?Suspected to be secondary to achalasia. 4. Suspected aspiration pneumonia 5. Cardiopulmonary arrest --Successfully resuscitated using ACLS protocol 6. Lactic acidosis 7. Hypertension 8. Paroxysmal A. fib 9. Diabetes mellitus type 2 10. Dyslipidemia 11. DVT prophylaxis Recommendations: 1. I have discussed the results of my overview and impressions with the patient 2. Options for management were reviewed Inpatient E&M: 550[address] [facility] Hosp L2
[2020-03-04 12:06] LABS: Bedside Glucose 134 mg/dL (70-110)
--- NOTE | 2020-03-04 14:35 | NURSING ---
Patient's central line in right IJ removed by patient with sutures intact. Patient handed line to me as I was walking into room. Pressure applied, patient laying back in recliner, central line intact, occlusive dressing applied.
[2020-03-04 18:05] LABS: Bedside Glucose 103 mg/dL (70-110)
[2020-03-05] VITALS (13 sets, daily range): BP systolic 120–147; BP diastolic 59–87; PULSE 63–90; RESP 18–24; TEMP 36.8–37.4; O2SAT 93–99
[2020-03-05] MEDS: 0.9% Saline Lock 10 ML Syringe IV ×4 (00:23→11:57)
[2020-03-05 00:50] LABS: Bedside Glucose 99 mg/dL (70-110)
[2020-03-05] MEDS: Nystatin Powder 15gm Bottle 1 APPLIC TOPICAL ×3 (05:52→22:27)
[2020-03-05 06:00] LABS: Bedside Glucose 100 mg/dL (70-110)
[2020-03-05] MEDS: Albuterol 2.5 MG/3 ML VIAL.NEB. INHALATION ×2 (06:08→14:28)
[2020-03-05 06:26] LABS: ALB/GLOB Ratio 0.6 RATIO (0.9-2.4); AST(SGOT) 18 U/L (15-37); Alanine Aminotransfer ALT/SGPT 20 U/L (13-56); Albumin, Serum 2.5 g/dL (3.2-5.0); Alkaline Phosphatase 76 U/L (45-117); Anion Gap 6 (5-15); BUN 11 mg/dL (7-18); BUN/Creat Ratio 23.7 RATIO (10-20); Calcium,Total 8.8 mg/dL (8.5-10.1); Chloride 109 mmol/L (98-107); Creatinine, Serum 0.46 mg/dL (0.55-1.02); EST Glomerular Filtration Rate 143 mL/min (>60); Est Glom Filt Rate - Afr Amer 173 mL/min (>60); Estimated Creatinine Clearance 100.86 ml/min; Globulin 4.3 g/dL (2.2-4.2); Glucose 107 mg/dL (74-106); Potassium 3.8 mmol/L (3.5-5.1); Protein, Total 6.8 g/dL (6.4-8.2); Sodium Level 141 mmol/L (136-145)
[2020-03-05 07:01] LABS: Absolute Lymphocyte Count 0.57 X10^3/uL (0.83-4.51); Absolute Neutrophil Count 4.7 X10^3/uL (2.0-7.7); Basophil# 0.02 X10^3/uL; Basophil% 0.3 % (0-1); Hematocrit 35.1 % (37-47); Lymphocyte # 0.57 X10^3/ul (4.0); Lymphocyte % 9.5 % (19-41); Mean Corp Hgb Conc 31.3 g/dL (32-36); Mean Corpuscular Hgb 27.7 pg (27.0-32.0); Mean Corpuscular Volume 88.4 fL (81-99); Mean Platelet Vol. 10.4 fl (6.2-12.0); Monocyte# 0.63 X10^3/uL; Monocyte% 10.5 % (0-10); NRBC Flagged by Analyzer 0 % (0-5); Neutrophil # 4.73 X10^3/uL (2.7-7.7); POSITIVE DIFFERENTIAL YES; Platelet Count 233 K/mm3 (150-450); RBC Distribution Width CV 14.1 % (11.6-14.6); RBC Distribution Width SD 44.8 fl (35.1-43.9); Red Blood Count 3.97 M/mm3 (4.2-5.4)
[2020-03-05 07:09] LABS: Differential Indicated SCAN CRITERIA MET
--- NOTE | 2020-03-05 07:27 | PN.SURG_ITS ---
Patient Problems: Active and Suspected Problems Lactic acidosis (Acute) Respiratory failure (Acute) Achalasia (Acute) Subjective: Patient did not have any issues over the weekend - Physical Exam Vitals/I&O's: Vital Signs Temp Pulse Resp BP Pulse Ox 98.3 F 73 24 H 120/77 94 03/05/20 02:35 03/05/20 06:09 03/05/20 06:09 03/05/20 02:35 03/05/20 02:35 Oxygen Flow Rate (L/min) 3 Oxygen Delivery Method Room Air Weight: 150 lb 5.684 oz Body Mass Index (BMI) 26.6 Intake and Output for Last 24 Hours 03/03/20 03/04/20 03/05/20 23:59 23:59 23:59 Intake Total 558 / 558 3713.42 / 3713.42 749.09 / 749.09 Output Total 575 / 575 1175 / 1175 200 / 200 Balance -17 / -17 2538.42 / 2538.42 549.09 / 549.09 General: Alert, Cooperative Lungs: Normal air movement Abdomen: Soft, Non Tender, Non-Distended Microbiology Past 72 Hours 02/27/20 22:40 Blood Culture (Wb) - Anticubital Right Blood Culture - Final No growth in 5 days. 02/27/20 22:35 Blood Culture (Wb) - Left Wrist Blood Culture - Final No growth in 5 days. Laboratory Results 03/04/20 11:59: POC Glucose 134 H 03/04/20 17:57: POC Glucose 103 03/05/20 00:21: POC Glucose 99 03/05/20 05:51: Sodium 141, Potassium 3.8, Chloride 109 H, Carbon Dioxide 26.0, Anion Gap 6, BUN 11, Creatinine 0.46 L, Estim Creat Clear Calc 100.86, Est GFR (MDRD) Af Amer 173, Est GFR (MDRD) Non-Af 143, BUN/Creatinine Ratio 23.7 H, Glucose 107 H, Calcium 8.8, Total Bilirubin 0.40, AST 18, ALT 20, Alkaline Phosphatase 76, Total Protein 6.8, Albumin 2.5 L, Globulin 4.3 H, Albumin/Globulin Ratio 0.6 L 03/05/20 05:51: POC Glucose 100 03/05/20 06:55: WBC 6.0, RBC 3.97 L, Hgb 11.0 L, Hct 35.1 L, MCV 88.4, MCH 27.7, MCHC 31.3 L, RDW Std Deviation 44.8 H, RDW Coeff of Jesica 14.1, Plt Count 233, MPV 10.4, Immature Gran % (Auto) 0.700, Neut % (Auto) 79.0 H, Lymph % (Auto) 9.5 L, Leslie % (Auto) 10.5 H, Eos % (Auto) 0.0, Baso % (Auto) 0.3, Absolute Neuts (auto) 4.7, Absolute Lymphs (auto) 0.57 L, Nucleated RBC % 0 Current Medications Acetaminophen (Acetaminophen 650 Mg/20 Ml Udc) 650 mg GT Q6H PRN PRN PRN Reason: FEVER Last Admin: 03/01/20 15:47 Dose: 650 mg Documented by: Albuterol Sulfate (Albuterol 2.5 Mg/3 Ml Vial.Neb.) 2.5 mg INHALATION Q2H PRN PRN PRN Reason: sob/wheezing Last Admin: 03/05/20 06:08 Dose: 2.5 mg Documented by: Calamine/Phenol (Menthol/Lanolin/Calamine/Znox 113 Gm Tube) 1 applic TOPICAL TID [facility]; Protocol Last Admin: 03/05/20 05:45 Dose: Not Given Documented by: Enoxaparin Sodium (Enoxaparin 40 Mg/0.4 Ml Syringe) 40 mg SC DAILY [facility] Last Admin: 03/04/20 10:20 Dose: 40 mg Documented by: Sodium Chloride () 250 mls @ 15 mls/hr IV .[id number] PRN PRN Reason: Saline Flush Last Infusion: 03/02/20 20:34 Dose: Infused Documented by: Sodium Chloride () 250 mls @ 15 mls/hr IV .[id number] PRN PRN Reason: Additional IVPB Infusion Sodium Chloride () 250 mls @ 15 mls/hr IV .[id number] PRN PRN Reason: Saline Flush Sodium Chloride () 250 mls @ 15 mls/hr IV .[id number] PRN PRN Reason: Additional IVPB Infusion Pantoprazole Sodium 40 mg/ (Sodium Chloride) 110 mls @ 330 mls/hr IV Q24 [facility] Last Infusion: 03/04/20 13:12 Dose: Infused Documented by: Ampicillin Sodium/Sulbactam (Sodium 3 gm/ Sodium Chloride) 112 mls @ 150 mls/hr IV Q6 [facility] Last Admin: 03/05/20 05:53 Dose: 150 mls/hr Documented by: Potassium Chloride/Dextrose/Sod Cl (Kcl 20meq In D5.45ns 1000ml) 1,000 mls @ 125 mls/hr IV .Q8H [facility] Last Infusion: 03/05/20 05:46 Dose: 0 mls/hr Documented by: Insulin Human Lispro (Insulin Lispro 100 Unit/Ml Insuln.Pen) 0 unit SC Q6 [facility]; Protocol Last Admin: 03/05/20 05:52 Dose: Not Given Documented by: Nystatin (Nystatin Powder 15gm Bottle) 1 applic TOPICAL TID [facility]; Protocol Last Admin: 03/05/20 05:52 Dose: 1 applicatio Documented by: Polyethylene Glycol (Polyethylene Glycol 3350 17 Gm Packet) 17 gm PO DAILY [facility] Last Admin: 03/04/20 08:13 Dose: Not Given Documented by: Senna/Docusate Sodium (Senna/Docusate Sodium 1 Tablet) 2 tablet PO BID [facility] Last Admin: 03/04/20 20:28 Dose: Not Given Documented by: Sodium Chloride (0.9% Saline Lock 10 Ml Syringe) 10 - 40 ml IV UD PRN PRN Reason: SALINE FLUSH Last Admin: 03/05/20 00:23 Dose: 10 ml Documented by: Sodium Chloride (0.9% Saline Lock 10 Ml Syringe) 10 - 40 ml IV UD PRN PRN Reason: SALINE FLUSH Medical Necessity - Tobacco Use Smoking Status: Unknown if ever smoked Assessment/Plan All Active Problems Lactic acidosis (Acute) Respiratory failure (Acute) Achalasia (Acute) 64-year-old female with dysphagia and possible achalasia with aspiration pneumonia 1. I had the patient have a cookie swallow on Thursday which she did not pass. I believe the plan today is to repeat a cookie swallow to see if there is any improvement but if not I will plan on a PEG tube insertion tomorrow for nutritional needs as the achalasia and dysphagia are worked up. I discussed t his with the patient today and she is agreeable. I will call the patient's family today to discuss consent and risks. I explained endoscopy in detail to the patient. I explained the risks including but not limited to stroke or heart attack with anesthesia, perforation of the GI tract, bleeding, infection. I explained that any of these could necessitate further emergency surgery. The patient understands and all questions were answered sufficiently. The patient wishes to proceed with procedure. Milton Hawthorne MD Pager: [facility] [address] [place] [address] [address] [place] [address] Office:
[2020-03-05] MEDS: Enoxaparin 40 MG/0.4 ML Syringe SC (08:58)
[2020-03-05 12:26] LABS: Bedside Glucose 128 mg/dL (70-110)
--- NOTE | 2020-03-05 13:27 | PCM.PN.HOSP ---
Patient Problems: Active and Suspected Problems Lactic acidosis (Acute) Respiratory failure (Acute) Achalasia (Acute) Subjective: 1. Septic shock and acute hypoxic respiratory failure secondary to aspiration pneumonia which led to cardiopulmonary arrest -She is feeling better now and would like to go home when able. She needs to be seen by PT and OT -We will repeat cookie swallow, if she fails that we will proceed with PEG tube placement -Continue with Unasyn -Appreciate ID recommendations 2. HTN/HLD/paroxysmal A. fib -Blood pressure is stable we will resume her home blood pressure medication when able -Continue her statin when she is able to take p.o. -Continue to hold her Xarelto for possible PEG tube placement 3. DM 2 -Holding her oral regimen -Continue with sliding scale insulin, monitor with Accu-Cheks AC at bedtime. Will make adjustments as necessary DVT: Lovenox Vitals/I&O's: Vital Signs Temp Pulse Resp BP Pulse Ox 98.8 F 73 20 H 147/66 H 93 03/05/20 08:48 03/05/20 08:48 03/05/20 08:48 03/05/20 08:48 03/05/20 08:48 Oxygen Flow Rate (L/min) 3 Oxygen Delivery Method Room Air Weight: 150 lb 5.684 oz Body Mass Index (BMI) 26.6 Intake and Output for Last 24 Hours 03/03/20 03/04/20 03/05/20 23:59 23:59 23:59 Intake Total 558 / 558 3713.42 / 3713.42 1344.00 / 1344.00 Output Total 575 / 575 1175 / 1175 400 / 400 Balance - / -17 2538.42 / 2538.42 944.00 / 944.00 General: Alert, Oriented x3, Cooperative, No apparent distress HEENT: Atraumatic, PERRLA, EOMI, Normocephalic Oral: Moist Mucosa Neck: Supple, No JVD Lungs: Normal air movement, No rhonchi, No wheeze, No rales, Diminished Cardiovascular: Regular rate, Regular Rhythm, Normal S1, Normal S2, No murmurs Abdomen: Soft, Non Tender, Non-Distended, No Hepato-splenomegaly Extremities: No edema, Capillary Refill Less than 3 Seconds Skin: No rashes, No breakdown Neurological: Neuro grossly intact, Sensory exam intact to light touch and pain Psych/Mental Status: Normal Affect, Appropriate Microbiology Past 72 Hours 02/27/20 22:40 Blood Culture (Wb) - Anticubital Right Blood Culture - Final No growth in 5 days. 02/27/20 22:35 Blood Culture (Wb) - Left Wrist Blood Culture - Final No growth in 5 days. Laboratory Results 03/04/20 17:57: POC Glucose 103 03/05/20 00:21: POC Glucose 99 03/05/20 05:51: Sodium 141, Potassium 3.8, Chloride 109 H, Carbon Dioxide 26.0, Anion Gap 6, BUN 11, Creatinine 0.46 L, Estim Creat Clear Calc 100.86, Est GFR (MDRD) Af Amer 173, Est GFR (MDRD) Non-Af 143, BUN/Creatinine Ratio 23.7 H, Glucose 107 H, Calcium 8.8, Total Bilirubin 0.40, AST 18, ALT 20, Alkaline Phosphatase 76, Total Protein 6.8, Albumin 2.5 L, Globulin 4.3 H, Albumin/Globulin Ratio 0.6 L 03/05/20 05:51: POC Glucose 100 03/05/20 06:55: WBC 6.0, RBC 3.97 L, Hgb 11.0 L, Hct 35.1 L, MCV 88.4, MCH 27.7, MCHC 31.3 L, RDW Std Deviation 44.8 H, RDW Coeff of Jesica 14.1, Plt Count 233, MPV 10.4, Immature Gran % (Auto) 0.700, Neut % (Auto) 79.0 H, Lymph % (Auto) 9.5 L, [place] % (Auto) 10.5 H, Eos % (Auto) 0.0, Baso % (Auto) 0.3, Absolute Neuts (auto) 4.7, Absolute Lymphs (auto) 0.57 L, Nucleated RBC % 0 03/05/20 11:57: POC Glucose 128 H Current Medications Acetaminophen (Acetaminophen 650 Mg/20 Ml Udc) 650 mg GT Q6H PRN PRN PRN Reason: FEVER Last Admin: 03/01/20 15:47 Dose: 650 mg Documented by: Albuterol Sulfate (Albuterol 2.5 Mg/3 Ml Vial.Neb.) 2.5 mg INHALATION Q2H PRN PRN PRN Reason: sob/wheezing Last Admin: 03/05/20 06:08 Dose: 2.5 mg Documented by: Calamine/Phenol (Menthol/Lanolin/Calamine/Znox 113 Gm Tube) 1 applic TOPICAL TID [facility]; Protocol Last Admin: 03/05/20 05:45 Dose: Not Given Documented by: Enoxaparin Sodium (Enoxaparin 40 Mg/0.4 Ml Syringe) 40 mg SC DAILY [facility] Last Admin: 03/05/20 08:58 Dose: 40 mg Documented by: Sodium Chloride () 250 mls @ 15 mls/hr IV .[id number] PRN PRN Reason: Saline Flush Last Infusion: 03/02/20 20:34 Dose: Infused Documented by: Sodium Chloride () 250 mls @ 15 mls/hr IV .[id number] PRN PRN Reason: Additional IVPB Infusion Sodium Chloride () 250 mls @ 15 mls/hr IV .[id number] PRN PRN Reason: Saline Flush Sodium Chloride () 250 mls @ 15 mls/hr IV .[id number] PRN PRN Reason: Additional IVPB Infusion Pantoprazole Sodium 40 mg/ (Sodium Chloride) 110 mls @ 330 mls/hr IV Q24 [facility] Last Infusion: 03/05/20 10:09 Dose: Infused Documented by: Potassium Chloride/Dextrose/Sod Cl (Kcl 20meq In D5.45ns 1000ml) 1,000 mls @ 125 mls/hr IV .Q8H [facility] Last Admin: 03/05/20 11:36 Dose: 125 mls/hr Documented by: Insulin Human Lispro (Insulin Lispro 100 Unit/Ml Insuln.Pen) 0 unit SC Q6 [facility]; Protocol Last Admin: 03/05/20 11:57 Dose: Not Given Documented by: Nystatin (Nystatin Powder 15gm Bottle) 1 applic TOPICAL TID [facility]; Protocol Last Admin: 03/05/20 05:52 Dose: 1 applicatio Documented by: Polyethylene Glycol (Polyethylene Glycol 3350 17 Gm Packet) 17 gm PO DAILY [facility] Last Admin: 03/05/20 08:42 Dose: Not Given Documented by: Senna/Docusate Sodium (Senna/Docusate Sodium 1 Tablet) 2 tablet PO BID [facility] Last Admin: 03/05/20 08:42 Dose: Not Given Documented by: Sodium Chloride (0.9% Saline Lock 10 Ml Syringe) 10 - 40 ml IV UD PRN PRN Reason: SALINE FLUSH Last Admin: 03/05/20 11:57 Dose: 10 ml Documented by: Sodium Chloride (0.9% Saline Lock 10 Ml Syringe) 10 - 40 ml IV UD PRN PRN Reason: SALINE FLUSH Medical Necessity - Tobacco Use Smoking Status: Unknown if ever smoked Assessment/Plan All Active Problems Lactic acidosis (Acute) Respiratory failure (Acute) Achalasia (Acute) 1. Septic shock and acute hypoxic respiratory failure secondary to aspiration pneumonia which led to cardiopulmonary arrest -She is feeling better now and would like to go home when able. She needs to be seen by PT and OT -We will repeat cookie swallow, if she fails that we will proceed with PEG tube placement -Continue with Unasyn -Appreciate ID recommendations 2. HTN/HLD/paroxysmal A. fib -Blood pressure is stable we will resume her home blood pressure medication when able -Continue her statin when she is able to take p.o. -Continue to hold her Xarelto for possible PEG tube placement 3. DM 2 -Holding her oral regimen -Continue with sliding scale insulin, monitor with Accu-Cheks AC at bedtime. Will make adjustments as necessary DVT: Lovenox Inpatient E&M: [id number] Subs Hosp L2
[2020-03-05] MEDS: Menthol/Lanolin/Calamine/Znox 113 GM Tube 1 APPLIC TOPICAL ×2 (13:56→22:27)
--- NOTE | 2020-03-05 14:26 | CASEMGMT ---
SARA called patient's niece who is her caregiver. She was not available so SARA left her a voice mail requesting a return call. Madiha HERRERA MSW
--- NOTE | 2020-03-05 16:01 | PN.ID_ITS ---
Patient Problems: Active and Suspected Problems Lactic acidosis (Acute) Respiratory failure (Acute) Achalasia (Acute) Subjective: Sleeping, no fever - Physical Exam Vitals/I&O's: Vital Signs Temp Pulse Resp BP Pulse Ox 98.7 F 79 20 H 137/59 H 99 03/05/20 13:54 03/05/20 14:28 03/05/20 14:28 03/05/20 13:54 03/05/20 13:54 Oxygen Flow Rate (L/min) 3 Oxygen Delivery Method Room Air Weight: 68.2 kg Body Mass Index (BMI) 26.6 Intake and Output for Last 24 Hours 03/03/20 03/04/20 03/05/20 23:59 23:59 23:59 Intake Total 558 / 558 3713.42 / 3713.42 1456.00 / 1456.00 Output Total 575 / 575 1175 / 1175 400 / 400 Balance - / 17 2538.42 / 2538.42 1056.00 / 1056.00 General: No apparent distress Lungs: Clear to auscultation Cardiovascular: Regular rate, Regular Rhythm Abdomen: Soft, Non Tender, Non-Distended Skin: No rashes Microbiology Past 72 Hours 02/27/20 22:40 Blood Culture (Wb) - Anticubital Right Blood Culture - Final No growth in 5 days. 02/27/20 22:35 Blood Culture (Wb) - Left Wrist Blood Culture - Final No growth in 5 days. Laboratory Results 03/04/20 17:57: POC Glucose 103 03/05/20 00:21: POC Glucose 99 03/05/20 05:51: Sodium 141, Potassium 3.8, Chloride 109 H, Carbon Dioxide 26.0, Anion Gap 6, BUN 11, Creatinine 0.46 L, Estim Creat Clear Calc 100.86, Est GFR (MDRD) Af Amer 173, Est GFR (MDRD) Non-Af 143, BUN/Creatinine Ratio 23.7 H, Glucose 107 H, Calcium 8.8, Total Bilirubin 0.40, AST 18, ALT 20, Alkaline Phosphatase 76, Total Protein 6.8, Albumin 2.5 L, Globulin 4.3 H, Albumin/Globulin Ratio 0.6 L 03/05/20 05:51: POC Glucose 100 03/05/20 06:55: WBC 6.0, RBC 3.97 L, Hgb 11.0 L, Hct 35.1 L, MCV 88.4, MCH 27.7, MCHC 31.3 L, RDW Std Deviation 44.8 H, RDW Coeff of Jesica 14.1, Plt Count 233, MPV 10.4, Immature Gran % (Auto) 0.700, Neut % (Auto) 79.0 H, Lymph % (Auto) 9.5 L, [place] % (Auto) 10.5 H, Eos % (Auto) 0.0, Baso % (Auto) 0.3, Absolute Neuts (auto) 4.7, Absolute Lymphs (auto) 0.57 L, Nucleated RBC % 0 03/05/20 11:57: POC Glucose 128 H Current Medications Acetaminophen (Acetaminophen 650 Mg/20 Ml Udc) 650 mg GT Q6H PRN PRN PRN Reason: FEVER Last Admin: 03/01/20 15:47 Dose: 650 mg Documented by: Albuterol Sulfate (Albuterol 2.5 Mg/3 Ml Vial.Neb.) 2.5 mg INHALATION Q2H PRN PRN PRN Reason: sob/wheezing Last Admin: 03/05/20 14:28 Dose: 2.5 mg Documented by: Calamine/Phenol (Menthol/Lanolin/Calamine/Znox 113 Gm Tube) 1 applic TOPICAL TID [facility]; Protocol Last Admin: 03/05/20 13:56 Dose: 1 applicatio Documented by: Enoxaparin Sodium (Enoxaparin 40 Mg/0.4 Ml Syringe) 40 mg SC DAILY [facility] Last Admin: 03/05/20 08:58 Dose: 40 mg Documented by: Sodium Chloride () 250 mls @ 15 mls/hr IV .[id number] PRN PRN Reason: Saline Flush Last Infusion: 03/02/20 20:34 Dose: Infused Documented by: Sodium Chloride () 250 mls @ 15 mls/hr IV .[id number] PRN PRN Reason: Additional IVPB Infusion Sodium Chloride () 250 mls @ 15 mls/hr IV .[id number] PRN PRN Reason: Saline Flush Sodium Chloride () 250 mls @ 15 mls/hr IV .[id number] PRN PRN Reason: Additional IVPB Infusion Pantoprazole Sodium 40 mg/ (Sodium Chloride) 110 mls @ 330 mls/hr IV Q24 [facility] Last Infusion: 03/05/20 10:09 Dose: Infused Documented by: Potassium Chloride/Dextrose/Sod Cl (Kcl 20meq In D5.45ns 1000ml) 1,000 mls @ 125 mls/hr IV .Q8H [facility] Last Admin: 03/05/20 11:36 Dose: 125 mls/hr Documented by: Insulin Human Lispro (Insulin Lispro 100 Unit/Ml Insuln.Pen) 0 unit SC Q6 [facility]; Protocol Last Admin: 03/05/20 11:57 Dose: Not Given Documented by: Nystatin (Nystatin Powder 15gm Bottle) 1 applic TOPICAL TID [facility]; Protocol Last Admin: 03/05/20 13:56 Dose: 1 applicatio Documented by: Polyethylene Glycol (Polyethylene Glycol 3350 17 Gm Packet) 17 gm PO DAILY [facility] Last Admin: 03/05/20 08:42 Dose: Not Given Documented by: Senna/Docusate Sodium (Senna/Docusate Sodium 1 Tablet) 2 tablet PO BID [facility] Last Admin: 03/05/20 08:42 Dose: Not Given Documented by: Sodium Chloride (0.9% Saline Lock 10 Ml Syringe) 10 - 40 ml IV UD PRN PRN Reason: SALINE FLUSH Last Admin: 03/05/20 11:57 Dose: 10 ml Documented by: Sodium Chloride (0.9% Saline Lock 10 Ml Syringe) 10 - 40 ml IV UD PRN PRN Reason: SALINE FLUSH Medical Necessity - Tobacco Use Smoking Status: Unknown if ever smoked Route of nutrition/ use of supplements: [] Nutritional Intake: [] IV Site: [] Hdez Catheter: [] - Assessment/Plan Antibiotics: [] Assessment/Plan: [] Active and Suspected Problems Lactic acidosis (Acute) Respiratory failure (Acute) Achalasia (Acute) Resp failure with aspiration and mssa in sputum - narrowed abx to unasyn on 03/01. Fever resolved, will stop abx. will follow as needed
--- NOTE | 2020-03-05 16:59 | ST.MBS ---
Modified Barium Swallow - Patient Information Study Date: 03/05/20 Study Time: 15:15 Direct Billable Minutes: 125 Total Minutes procedure & reportin Diagnosis: Dysphagia (R13.12) Referring Physician: Milton Hawthorne Reason for Referral: The patient is a 64 year old female who was referred for a modified barium swallow (MBS) study on 03/02/2020 to objectively assess the patients oropharyngeal swallow function under fluoroscopy secondary to reported concerns for PO intake sufficiency, with concerns for achalasia. The 03/02/2020 study revealed with moderate to severe dysphagia with grade IV aspiration of thin and mildly thick/nectar liquids. Repeat MBS completed at the behest of Dr. Hawthorne prior to planned PEG tube placement 03/06/20 to determine if there has been any improvement in swallow function since previous study. Medical History: atrial fibrillation with RVR, acute bronchitis, hypertension, hyperlipidemia, chronic insomnia, type II diabetes mellitus The patient was admitted to [facility] on 02/28/2020 due to acute hypoxemic respiratory failure secondary to aspiration pneumonia necessitating intubation in the emergency room (extubated 03/02/2020 at 0620) status post PEA cardiac arrest likely precipitated by hypoxemia induced by aspiration, septic shock, and achalasia status post esophageal dilation (02/28/2020) with retained food product. Current Diet Ordered: NPO Dentition: Edentulous Respiratory Status: Oxygenating on Room Air - Penetration-Aspiration Scale Score Thin Liquid via teaspoon Result: 1= does not enter airway Thin Liquid via teaspoon Trial 2 Result: 8= enters airway/below vocal folds/no effort Thin Liquid via teaspoon Trial 3 Result: 4= enters airway/contacts vocal folds/ejected Thin Liquid via small single sip from cup Result: 7= enters airways/below vocal folds/not ejected despite effort Show Low Thick Liquid via teaspoon Result: 8= enters airway/below vocal folds/no effort Honey Thick Liquid via teaspoon Result: 1= does not enter airway Honey Thick Liquid via teaspoon Trial 2 Result: 8= enters airway/below vocal folds/no effort Pudding via teaspoon Result: 1= does not enter airway - Oral Phase Labial Seal: - - Interlabial escape w/out extention beyond morgan border Tongue Control During Bolus Hold: Escape to lateral buccal cavity/floor of mouth Bolus Transport/Lingual Motion: Brisk tongue motion Oral Residue: Trace residue lining oral structures - Pharyngeal Phase Initiation of Pharyngeal Swallow: Bolus head at posterior laryngeal surgace of epiglottis Soft Palate Elevation: No bolus between soft palate and pharyngeal wall Laryngeal Elevation: Partial superior movement thyroid cart/partial apprx aryt-epig petiole Anterior Hyoid Excursion: Partial anterior movement Epiglottic Movement: Partial inversion Laryngeal Vestibule Closure at Height of Swallow: Incomplete; narrow column of air/contrast in laryngeal vestibule Pharyngeal Stripping Wave: Present - diminished Pharyngoesophageal Segment Opening: Parital distension and partial duration; parital obstruction of flow Tongue Base Retraction: Narrow column of contrast between tongue base & post. pharyngeal wall Pharyngeal Residue: Collection of residue within or on pharyngeal structures - Diagnosis/Impression Diagnosis: Dysphagia (R13.12) Impression: The patient presents with moderate to severe dysphagia with aspiration of thin, mildly thick (nectar) and moderately thick (honey) liquids. Swallow function is marked by rapid oral transit w/ premature pharyngeal bolus entry/delayed pharyngeal swallow onset resulting in penetration and aspiration before and during deglutition. Insufficient laryngeal vestibule pressure to expel penetration. Aspiration was silent w/ small volume teaspoon boluses. Overt cough response was elicited w/ aspiration of larger volumes, albeit reduced in intensity when compared to the amount aspirated. Delayed hoarse ?honking? coughing noted as study progressed in response to prior aspiration. Cough was not effective to expel aspirate from the trachea. Reduced hyolaryngeal excursion and pharyngeal contraction resulted in impaired pharyngeal clearance and reduced PES distention to allow for bolus entrance into the esophagus as viscosity increased w/ pudding trial. No significant change in overall swallow function since prior MBS 03/02/2020. Continue to recommend NPO w/ alternative means of nutrition/hydration. Will require further assessment of esophageal function w/ manometry if to assess for achalasia. - Recommendations Diet: NPO Comment: Dr. Hawthorne notified of repeat MBS findings. PEG tube placement planned for 03/06/20. Recommend Repeat Modified Barium Swallow: TBD Need for Skilled Speech Therapy Services: Yes Recommended Referrals: GI Consult Education Completed: 1. Described result of evaluation., 7. Pt requires further education on strategies & risks. - Image Count: [phone] - Status Active ST Patient: Active - Contact Information [facility] Speech Therapy:: Cynthia Sequeira M.A., [facility] Speech-Language Pathologist [email or web address] [phone]
[2020-03-05 17:51] LABS: Bedside Glucose 124 mg/dL (70-110)
[2020-03-06] VITALS (16 sets, daily range): BP systolic 107–181; BP diastolic 53–88; PULSE 7–76; RESP 16–78; TEMP 36.3–37.1; O2SAT 92–100; BMI 27.0; BMI 26.9
[2020-03-06 00:06] LABS: Bedside Glucose 129 mg/dL (70-110)
[2020-03-06] MEDS: Nystatin Powder 15gm Bottle 1 APPLIC TOPICAL ×3 (06:03→21:26)
[2020-03-06] MEDS: Menthol/Lanolin/Calamine/Znox 113 GM Tube 1 APPLIC TOPICAL ×3 (06:03→21:27)
[2020-03-06 06:06] LABS: Bedside Glucose 137 mg/dL (70-110)
--- NOTE | 2020-03-06 07:38 | PCM.PN.SRG ---
Patient Problems: Active and Suspected Problems Lactic acidosis (Acute) Respiratory failure (Acute) Achalasia (Acute) Subjective: No new issues overnight - Physical Exam Vitals/I&O's: Vital Signs Temp Pulse Resp BP Pulse Ox 97.3 F L 62 20 H 159/85 H 98 03/06/20 03:25 03/06/20 06:53 03/06/20 03:25 03/06/20 03:25 03/06/20 03:25 Oxygen Flow Rate (L/min) 2 Oxygen Delivery Method Nasal Cannula Weight: 152 lb 1.903 oz Body Mass Index (BMI) 27.0 Intake and Output for Last 24 Hours 03/04/20 03/05/20 03/06/20 23:59 23:59 23:59 Intake Total 3713.42 / 3713.42 2456.00 / 2456.00 1000 / 1000 Output Total 1175 / 1175 400 / 550 650 / 650 Balance 2538.42 / 2538.42 2056.00 / 1906.00 350 / 350 General: Alert, Cooperative Lungs: Normal air movement Abdomen: Soft, Non Tender, Non-Distended Microbiology Past 72 Hours 02/27/20 22:40 Blood Culture (Wb) - Anticubital Right Blood Culture - Final No growth in 5 days. 02/27/20 22:35 Blood Culture (Wb) - Left Wrist Blood Culture - Final No growth in 5 days. Laboratory Results 03/05/20 06:55: Hemoglobin A1c Pending 03/05/20 11:57: POC Glucose 128 H 03/05/20 17:40: POC Glucose 124 H 03/05/20 23:59: POC Glucose 129 H 03/06/20 06:00: POC Glucose 137 H Current Medications Acetaminophen (Acetaminophen 650 Mg/20 Ml Udc) 650 mg GT Q6H PRN PRN PRN Reason: FEVER Last Admin: 03/01/20 15:47 Dose: 650 mg Documented by: Albuterol Sulfate (Albuterol 2.5 Mg/3 Ml Vial.Neb.) 2.5 mg INHALATION Q2H PRN PRN PRN Reason: sob/wheezing Last Admin: 03/05/20 14:28 Dose: 2.5 mg Documented by: Calamine/Phenol (Menthol/Lanolin/Calamine/Znox 113 Gm Tube) 1 applic TOPICAL TID BLESSING; Protocol Last Admin: 03/06/20 06:03 Dose: 1 applicatio Documented by: Enoxaparin Sodium (Enoxaparin 40 Mg/0.4 Ml Syringe) 40 mg SC DAILY [facility] Last Admin: 03/05/20 08:58 Dose: 40 mg Documented by: Sodium Chloride () 250 mls @ 15 mls/hr IV .[id number] PRN PRN Reason: Saline Flush Last Infusion: 03/02/20 20:34 Dose: Infused Documented by: Sodium Chloride () 250 mls @ 15 mls/hr IV .[id number] PRN PRN Reason: Additional IVPB Infusion Sodium Chloride () 250 mls @ 15 mls/hr IV .[id number] PRN PRN Reason: Saline Flush Sodium Chloride () 250 mls @ 15 mls/hr IV .[id number] PRN PRN Reason: Additional IVPB Infusion Pantoprazole Sodium 40 mg/ (Sodium Chloride) 110 mls @ 330 mls/hr IV Q24 [facility] Last Infusion: 03/05/20 10:09 Dose: Infused Documented by: Potassium Chloride/Dextrose/Sod Cl (Kcl 20meq In D5.45ns 1000ml) 1,000 mls @ 125 mls/hr IV .Q8H [facility] Last Admin: 03/06/20 06:53 Dose: 125 mls/hr Documented by: Cefazolin Sodium 2 gm/ Sodium (Chloride) 110 mls @ 150 mls/hr IV SEND TO OR W/PATIENT ONE Stop: 03/06/20 11:43 Insulin Human Lispro (Insulin Lispro 100 Unit/Ml Insuln.Pen) 0 unit SC Q6 [facility]; Protocol Last Admin: 03/06/20 06:03 Dose: Not Given Documented by: Nystatin (Nystatin Powder 15gm Bottle) 1 applic TOPICAL TID [facility]; Protocol Last Admin: 03/06/20 06:03 Dose: 1 applicatio Documented by: Polyethylene Glycol (Polyethylene Glycol 3350 17 Gm Packet) 17 gm PO DAILY [facility] Last Admin: 03/05/20 08:42 Dose: Not Given Documented by: Senna/Docusate Sodium (Senna/Docusate Sodium 1 Tablet) 2 tablet PO BID [facility] Last Admin: 03/05/20 21:31 Dose: Not Given Documented by: Sodium Chloride (0.9% Saline Lock 10 Ml Syringe) 10 - 40 ml IV UD PRN PRN Reason: SALINE FLUSH Last Admin: 03/05/20 11:57 Dose: 10 ml Documented by: Sodium Chloride (0.9% Saline Lock 10 Ml Syringe) 10 - 40 ml IV UD PRN PRN Reason: SALINE FLUSH Medical Necessity - Tobacco Use Smoking Status: Unknown if ever smoked Assessment/Plan All Active Problems Lactic acidosis (Acute) Respiratory failure (Acute) Achalasia (Acute) 64-year-old female with dysphagia and possible achalasia 1. Patient followed repeat swallow evaluation yesterday. Plan for EGD with PEG tube today. I did discuss with the patient and her family and they are in agreement. I explained endoscopy in detail to the patient. I explained the risks including but not limited to stroke or heart attack with anesthesia, perforation of the GI tract, bleeding, infection. I explained that any of these could necessitate further emergency surgery. The patient understands and all questions were answered sufficiently. The patient wishes to proceed with procedure. Milton Hawthorne MD Pager: [facility] [address] [place] [address] [address] [place] [address] Office:
[2020-03-06 08:47] LABS: Hemoglobin A1c 5.8 % (3.8-5.6)
[2020-03-06] MEDS: Albuterol 2.5 MG/3 ML VIAL.NEB. INHALATION (09:29)
--- NOTE | 2020-03-06 10:17 | CASEMGMT ---
SW called patient's niece. SARA explained that therapy is recommending patient go to a SNF for short term rehab. She said they figured that would be the case. SW asked if they had a preference. She said probably SW as this is where patient's mom is staying. She said she wants to talk with the rest of the family and she will get back to . SW gave her SW's phone number. Madiha HERRERA MSW
[2020-03-06] MEDS: Cefazolin 2 GM in 0.9% Normal Saline 100 ML IV (10:22)
--- NOTE | 2020-03-06 10:38 | PCM.PN.BLA ---
Progress Note PEG tube placed without complication. Patient may use PEG tube for feedings tomorrow. She may have medications through PEG tube today with water flushes. I would recommend an abdominal binder to to protect the feeding tube. Dr. Levy will be on covering me if there are any issues or concerns tomorrow. Milton Hawthorne MD Pager: [facility] [address] [place] [address], [address] [place] [address] Office: STROKE Vital Signs/Narrative: Vital Signs Temp Pulse Resp BP Pulse Ox 03/06/20 09:30 7 L 78 H 03/06/20 09:21 98.5 F 56 L 20 H 127/58 H 92 03/06/20 07:52 95 03/06/20 06:53 62
--- NOTE | 2020-03-06 10:39 | OP.EGD_ITS ---
Patient Name: Arelis Mendoza Procedure Date: 03/06/2020 10:13 AM Date of : 1955 Age: 64 Procedure: Upper GI endoscopy Indications: Oropharyngeal phase dysphagia Providers: Milton Hawthorne MD Medicines: Monitored Anesthesia Care Patient Profile: This is a 64 year old female. Refer to note in patient chart for documentation of history and physical. Complications: No immediate complications. Estimated blood loss: Minimal. Procedure: Pre-Anesthesia Assessment: - Prior to the procedure, a History and Physical was performed, and patient medications and allergies were reviewed. The patient's tolerance of previous anesthesia was also reviewed. The risks and benefits of the procedure and the sedation options and risks were discussed with the patient. All questions were answered, and informed consent was obtained. Prior Anticoagulants: The patient has taken no previous anticoagulant or antiplatelet agents. After reviewing the risks and benefits, the patient was deemed in satisfactory condition to undergo the procedure. After obtaining informed consent, the endoscope was passed under direct vision. Throughout the procedure, the patient's blood pressure, pulse, and oxygen saturations were monitored continuously. The Endoscope was introduced through the mouth, and advanced to the second part of duodenum. The upper GI endoscopy was accomplished without difficulty. The patient tolerated the procedure well. Scope In: 10:23:30 AM Scope Out: 10:31:46 AM Total Procedure Duration Time 0 hours 8 minutes 16 seconds Findings: The esophagus was normal. The stomach was normal. The examined duodenum was normal. The patient was placed in the supine position for PEG placement. The stomach was insufflated to appose gastric and abdominal rizzo. A site was located in the body of the stomach with good transillumination and manual external pressure for placement. The abdominal wall was marked and prepped in a sterile manner. The area was anesthetized with 4 mL of 0.5% lidocaine. The trocar needle was introduced through the abdominal wall and into the stomach under direct endoscopic view. A snare was introduced through the endoscope and opened in the gastric lumen. The guide wire was passed through the trocar and into the open snare. The snare was closed around the guide wire. The endoscope and snare were removed, pulling the wire out through the mouth. A skin incision was made at the site of needle insertion. The externally removable 20 Fr EndoVive Safety gastrostomy tube was lubricated. The G-tube was tied to the guide wire and pulled through the mouth and into the stomach. The trocar needle was removed, and the gastrostomy tube was pulled out from the stomach through the skin. The external bumper was attached to the gastrostomy tube, and the tube was cut to remove the guide wire. The final position of the gastrostomy tube was confirmed by relook endoscopy, and skin marking noted to be 4 cm at the external bumper. The final tension and compression of the abdominal wall by the PEG tube and external bumper were checked and revealed that the bumper was loose and lightly touching the skin and that the PEG balloon was loose and lightly touching the stomach. The feeding tube was capped, and the tube site cleaned and dressed. Impression: - Normal esophagus. - Normal stomach. - Normal examined duodenum. - An externally removable PEG placement was successfully completed. - No specimens collected. Recommendation: - [facility]. - Please follow the post-PEG recommendations including: external bolster 1 cm from abdominal wall, change dressing once per day, may use PEG tomorrow for feedings and check site for bleeding q 4 hrs. - Continue present medications. Procedure Code(s): --- Professional --- 42844, Esophagogastroduodenoscopy, flexible, transoral; with directed placement of percutaneous gastrostomy tube Diagnosis Code(s): --- Professional --- R13.12, Dysphagia, oropharyngeal phase CPT copyright 2017 [employer]. All rights reserved. The codes documented in this report are preliminary and upon inside technical sales representative review may be revised to meet current compliance requirements. Milton Hawthorne MD 03/06/2020 10:38:22 AM This report has been signed electronically. Number of Addenda: 0 Note Initiated On: 03/06/2020 10:13 AM
--- NOTE | 2020-03-06 10:39 | OP.CCLET_ITS ---
03/06/2020 Jose Brown [address] [place] [address] Re : Upper GI endoscopy procedure for Arelis Mendoza Dear Dr. Brown This procedure was performed on Friday, March 06, 2020. My impressions and recommendations are as follows: Impressions : - Normal esophagus. - Normal stomach. - Normal examined duodenum. - An externally removable PEG placement was successfully completed. - No specimens collected. Recommendations : - [facility]. - Please follow the post-PEG recommendations including: external bolster 1 cm from abdominal wall, change dressing once per day, may use PEG tomorrow for feedings and check site for bleeding q 4 hrs. - Continue present medications. My findings are described in the full procedure note, which is enclosed. If I can be of further assistance, please feel free to contact me at Doctor phone number(s): , Work: . Sincerely, Milton Hawthorne MD 03/06/2020 10:38:22 AM This report has been signed electronically.
[2020-03-06 12:20] LABS: Bedside Glucose 103 mg/dL (70-110)
--- NOTE | 2020-03-06 12:42 | PCM.NTREPORT ---
Nutrition Therapy Report - History Nutrition Services has been consulted to:: Manage enteral nutrition Current diet / nutrition support order:: NPO - Anthropometric Measurements Height:: 5 ft 3 in Weight:: 69 kg Body Mass Index (BMI):: 26.9 - Relevant Labs Relevant Labs:: WBC 13.1 K/mm3 (4.4-11.0) H 02/28/20 04:20 RBC 3.97 M/mm3 (4.2-5.4) L 03/05/20 06:55 Hgb 11.0 g/dL (12.0-15.0) L 03/05/20 06:55 Hct 35.1 % (37-47) L 03/05/20 06:55 MCHC 31.3 g/dL (32-36) L 03/05/20 06:55 RDW Std Deviation 44.8 fl (35.1-43.9) H 03/05/20 06:55 Neut % (Auto) 79.0 % (47-70) H 03/05/20 06:55 Lymph % (Auto) 9.5 % (19-41) L 03/05/20 06:55 [place] % (Auto) 10.5 % (0-10) H 03/05/20 06:55 Absolute Neuts (auto) 12.2 X10^3/uL (2.0-7.7) H 02/28/20 04:20 Absolute Lymphs (auto) 0.57 X10^3/uL (0.83-4.51) L 03/05/20 06:55 PT 16.8 SECONDS (11.7-14.9) H 02/27/20 22:35 Chloride 109 mmol/L (98-107) H 03/05/20 05:51 Carbon Dioxide 20.0 mmol/L (21.0-32.0) L 02/27/20 22:35 Anion Gap 4 (5-15) L 03/01/20 03:50 BUN 23 mg/dL (7-18) H 03/01/20 03:50 Creatinine 0.46 mg/dL (0.55-1.02) L 03/05/20 05:51 Est GFR (MDRD) Non-Af 50 mL/min (>60) L 02/27/20 22:35 BUN/Creatinine Ratio 23.7 RATIO (10-20) H 03/05/20 05:51 Glucose 107 mg/dL (74-106) H 03/05/20 05:51 Hemoglobin A1c 5.8 % (3.8-5.6) H 03/05/20 06:55 Lactic Acid 7.4 mmol/L (0.4-1.9) H* 02/27/20 22:35 Calcium 8.4 mg/dL (8.5-10.1) L 03/04/20 04:21 Alkaline Phosphatase 119 U/L (45-117) H 02/27/20 22:35 Total Protein 6.3 g/dL (6.4-8.2) L 03/04/20 04:21 Albumin 2.5 g/dL (3.2-5.0) L 03/05/20 05:51 Globulin 4.3 g/dL (2.2-4.2) H 03/05/20 05:51 Albumin/Globulin Ratio 0.6 RATIO (0.9-2.4) L 03/05/20 05:51 - Assessment Food / Nutrition-Related History:: MBS completed 03/05/20- unable to resume PO diet. PEG placed today. Per elver Caba for meds/flushes today via PEG and starting enteral nutrition via PEG tomorrow 03/07. Wt decrease of 0.2 kg since last review. - Nutrition Diagnosis Problem / Etiology / Signs & Symptoms (PES):: Pt w/ inadequate energy intake r/t dysphagia as evidenced by NPO x7 days, no nutrition support x 5 days. Evidence of Malnutrition Exists:: No - Nutrition Intervention Nutrition Prescription:: Estimated nutritional needs: 6992-2973 calories, 55-70 g protein per day. - Food / Nutrient Delivery Interventions Summary of nutrition intervention:: Discussed w/ RN Clari. Recommend 30mL H2O flush q 4 hours until tube feeds started. Has IV fluids ordered. Will start enteral nutrition support tomorrow, see below. Nutrition support ordered as / adjusted to:: for tomorrow, 03/07/20, via PEG- 275mL bolus of Jevity 1.5 4x/day w/125mL H2O flush before and after each feed to provide 1650 calories, 70 g protein, and 1836mL total fluid per day. Recommend start w/ bolus feed of 150mL for first feeding; increase as tolerated to 200mL for second feeding prior to increasing to goal of 275mL. Continue daily wts. - MNT Monitoring Further MNT monitoring and evaluation required?: Yes MNT Follow-up in:: 1-2 days
--- NOTE | 2020-03-06 13:13 | PCM.PN.HOSP ---
Patient Problems: Active and Suspected Problems Lactic acidosis (Acute) Respiratory failure (Acute) Achalasia (Acute) Subjective: No issues overnight. Doing well. She did fail the cookie swallow yesterday we will proceed with PEG tube placement today. Vitals/I&O's: Vital Signs Temp Pulse Resp BP Pulse Ox 98.3 F 63 20 H 168/70 H 96 03/06/20 11:41 03/06/20 11:41 03/06/20 11:41 03/06/20 11:41 03/06/20 11:41 Oxygen Flow Rate (L/min) 4 Oxygen Delivery Method Nasal Cannula Weight: 152 lb 1.903 oz Body Mass Index (BMI) 26.9 Intake and Output for Last 24 Hours 03/04/20 03/05/20 03/06/20 23:59 23:59 23:59 Intake Total 3713.42 / 3713.42 2456.00 / 2456.00 1536.67 / 1536.67 Output Total 1175 / 1175 400 / 550 650 / 650 Balance 2538.42 / 2538.42 2056.00 / 1906.00 886.67 / 886.67 General: Alert, Oriented x3, Cooperative, No apparent distress HEENT: Atraumatic, PERRLA, EOMI, Normocephalic Oral: Moist Mucosa Neck: Supple, No JVD Lungs: Normal air movement, No rhonchi, No wheeze, No rales, Diminished Cardiovascular: Regular rate, Regular Rhythm, Normal S1, Normal S2, No murmurs Abdomen: Soft, Non Tender, Non-Distended, No Hepato-splenomegaly Extremities: No edema, Capillary Refill Less than 3 Seconds Skin: No rashes, No breakdown Neurological: Neuro grossly intact, Sensory exam intact to light touch and pain Psych/Mental Status: Normal Affect, Appropriate Microbiology Past 72 Hours 02/27/20 22:40 Blood Culture (Wb) - Anticubital Right Blood Culture - Final No growth in 5 days. 02/27/20 22:35 Blood Culture (Wb) - Left Wrist Blood Culture - Final No growth in 5 days. Laboratory Results 03/05/20 06:55: Hemoglobin A1c 5.8 H 03/05/20 17:40: POC Glucose 124 H 03/05/20 23:59: POC Glucose 129 H 03/06/20 06:00: POC Glucose 137 H 03/06/20 12:15: POC Glucose 103 Current Medications Acetaminophen (Acetaminophen 650 Mg/20 Ml Udc) 650 mg GT Q6H PRN PRN PRN Reason: FEVER Last Admin: 03/01/20 15:47 Dose: 650 mg Documented by: Albuterol Sulfate (Albuterol 2.5 Mg/3 Ml Vial.Neb.) 2.5 mg INHALATION Q2H PRN PRN PRN Reason: sob/wheezing Last Admin: 03/06/20 09:29 Dose: 2.5 mg Documented by: Calamine/Phenol (Menthol/Lanolin/Calamine/Znox 113 Gm Tube) 1 applic TOPICAL TID [facility]ESSING; Protocol Last Admin: 03/06/20 06:03 Dose: 1 applicatio Documented by: Enoxaparin Sodium (Enoxaparin 40 Mg/0.4 Ml Syringe) 40 mg SC DAILY [facility] Last Admin: 03/06/20 07:43 Dose: Not Given Documented by: Enteral Nutritional Formula (Jevity 1.5. 1,000 Ml Bottle) 275 ml GT 4X/DAY BLESSING Sodium Chloride () 250 mls @ 15 mls/hr IV .[id number] PRN PRN Reason: Saline Flush Last Infusion: 03/02/20 20:34 Dose: Infused Documented by: Sodium Chloride () 250 mls @ 15 mls/hr IV .[id number] PRN PRN Reason: Additional IVPB Infusion Sodium Chloride () 250 mls @ 15 mls/hr IV .[id number] PRN PRN Reason: Saline Flush Sodium Chloride () 250 mls @ 15 mls/hr IV .[id number] PRN PRN Reason: Additional IVPB Infusion Pantoprazole Sodium 40 mg/ (Sodium Chloride) 110 mls @ 330 mls/hr IV Q24 BLESSING Last Infusion: 03/06/20 09:16 Dose: Infused Documented by: Potassium Chloride/Dextrose/Sod Cl (Kcl 20meq In D5.45ns 1000ml) 1,000 mls @ 125 mls/hr IV .Q8H BLESSING Last Infusion: 03/06/20 11:43 Dose: 125 mls/hr Documented by: Insulin Human Lispro (Insulin Lispro 100 Unit/Ml Insuln.Pen) 0 unit SC Q6 [facility]; Protocol Last Admin: 03/06/20 12:25 Dose: Not Given Documented by: Nystatin (Nystatin Powder 15gm Bottle) 1 applic TOPICAL TID [facility]ESSING; Protocol Last Admin: 03/06/20 06:03 Dose: 1 applicatio Documented by: Polyethylene Glycol (Polyethylene Glycol 3350 17 Gm Packet) 17 gm PO DAILY [facility] Last Admin: 03/06/20 07:43 Dose: Not Given Documented by: Senna/Docusate Sodium (Senna/Docusate Sodium 1 Tablet) 2 tablet PO BID [facility]ESSING Last Admin: 03/06/20 07:43 Dose: Not Given Documented by: Sodium Chloride (0.9% Saline Lock 10 Ml Syringe) 10 - 40 ml IV UD PRN PRN Reason: SALINE FLUSH Last Admin: 03/05/20 11:57 Dose: 10 ml Documented by: Sodium Chloride (0.9% Saline Lock 10 Ml Syringe) 10 - 40 ml IV UD PRN PRN Reason: SALINE FLUSH STROKE Vital Signs/Narrative: Vital Signs Temp Pulse Resp BP Pulse Ox 03/06/20 11:41 98.3 F 63 20 H 168/70 H 96 03/06/20 11:12 97.4 F L 69 16 157/72 H 100 03/06/20 11:06 97.4 F L 65 16 146/68 H 100 03/06/20 11:00 65 16 155/80 H 99 03/06/20 10:45 67 16 181/88 H 100 03/06/20 10:42 97.6 F L 63 16 175/79 H 100 03/06/20 09:30 7 L 78 H 03/06/20 09:21 98.5 F 56 L 20 H 127/58 H 92 Medical Necessity - Tobacco Use Smoking Status: Unknown if ever smoked Assessment/Plan All Active Problems Lactic acidosis (Acute) Respiratory failure (Acute) Achalasia (Acute) 1. Septic shock and acute hypoxic respiratory failure secondary to aspiration pneumonia which led to cardiopulmonary arrest -She is feeling better now and would like to go home when able. She needs to be seen by PT and OT -She failed repeat cookie swallow. We will proceed with PEG tube placement and tube feeds today -She completed her antibiotic course -Appreciate ID recommendations 2. HTN/HLD/paroxysmal A. fib -Blood pressure is stable we will resume her home blood pressure medication when able -Continue her statin when she is able to take p.o. -Continue to hold her Xarelto for possible PEG tube placement 3. DM 2 -Holding her oral regimen -Continue with sliding scale insulin, monitor with Accu-Cheks AC at bedtime. Will make adjustments as necessary 4. GERD -Stable -Continue PPI DVT: Lovenox Inpatient E&M: 74533 Subs Hosp L2
[2020-03-06] MEDS: Acetaminophen 650 MG/20 ML UDC GT (14:43)
[2020-03-06 18:16] LABS: Bedside Glucose 153 mg/dL (70-110)
[2020-03-06 21:31] LABS: Bedside Glucose 149 mg/dL (70-110)
[2020-03-06 23:46] LABS: Bedside Glucose 144 mg/dL (70-110)
[2020-03-07] VITALS (10 sets, daily range): BP systolic 126–166; BP diastolic 42–74; PULSE 54–90; RESP 16–18; TEMP 36.8–37.2; O2SAT 93–96
[2020-03-07] MEDS: Acetaminophen 650 MG/20 ML UDC GT ×2 (02:02→17:50)
[2020-03-07 06:06] LABS: Absolute Lymphocyte Count 0.55 X10^3/uL (0.83-4.51); Absolute Neutrophil Count 4.4 X10^3/uL (2.0-7.7); Basophil# 0.01 X10^3/uL; Basophil% 0.2 % (0-1); Hematocrit 30.4 % (37-47); Hemoglobin 9.7 g/dL (12.0-15.0); Lymphocyte # 0.55 X10^3/ul (4.0); Lymphocyte % 10.1 % (19-41); Mean Corp Hgb Conc 31.9 g/dL (32-36); Mean Corpuscular Hgb 27.8 pg (27.0-32.0); Mean Corpuscular Volume 87.1 fL (81-99); Mean Platelet Vol. 11.1 fl (6.2-12.0); Monocyte# 0.43 X10^3/uL; Monocyte% 7.9 % (0-10); NRBC Flagged by Analyzer 0 % (0-5); Neutrophil % 81.2 % (47-70); POSITIVE DIFFERENTIAL YES; Platelet Count 211 K/mm3 (150-450); RBC Distribution Width CV 13.9 % (11.6-14.6); RBC Distribution Width SD 43.2 fl (35.1-43.9); Red Blood Count 3.49 M/mm3 (4.2-5.4); White Blood Count 5.4 K/mm3 (4.4-11.0)
[2020-03-07] MEDS: Nystatin Powder 15gm Bottle 1 APPLIC TOPICAL ×3 (06:35→21:30)
[2020-03-07] MEDS: Menthol/Lanolin/Calamine/Znox 113 GM Tube 1 APPLIC TOPICAL ×3 (06:35→21:30)
[2020-03-07 06:39] LABS: ALB/GLOB Ratio 0.6 RATIO (0.9-2.4); AST(SGOT) 29 U/L (15-37); Alanine Aminotransfer ALT/SGPT 21 U/L (13-56); Albumin, Serum 2.1 g/dL (3.2-5.0); Alkaline Phosphatase 68 U/L (45-117); Anion Gap 5 (5-15); BUN 8 mg/dL (7-18); BUN/Creat Ratio 18.6 RATIO (10-20); Calcium,Total 8.2 mg/dL (8.5-10.1); Chloride 110 mmol/L (98-107); Creatinine, Serum 0.43 mg/dL (0.55-1.02); EST Glomerular Filtration Rate 157 mL/min (>60); Est Glom Filt Rate - Afr Amer 190 mL/min (>60); Globulin 3.7 g/dL (2.2-4.2); Glucose 135 mg/dL (74-106); Potassium 4.1 mmol/L (3.5-5.1); Protein, Total 5.8 g/dL (6.4-8.2); Sodium Level 140 mmol/L (136-145)
[2020-03-07 06:48] LABS: Differential Indicated SCAN CRITERIA MET
[2020-03-07 08:52] LABS: Platelet Estimate ADEQUATE (ADEQ); Red Cell Morphology NORM C+C NORMAL (NORM C&C)
[2020-03-07] MEDS: Jevity 1.5. 1,000 ML Bottle 275 ML GT ×4 (09:03→21:30)
[2020-03-07] MEDS: Enoxaparin 40 MG/0.4 ML Syringe SC (09:03)
--- NOTE | 2020-03-07 09:13 | CASEMGMT ---
RN told SARA that patient's brother Chaz was in and wanted to talk with SW. SW called Chaz's cell phone and Cheryl answered. She said Chaz was still in bed. SW gave her SW's phone number and said if he still has questions he is more than welcome to call SW. SARA did confirm with her that the plan is [facility]. SW will get [facility] information on tube feeds. Madiha HERRERA REFERRAL CLERK
--- NOTE | 2020-03-07 09:21 | PN.SURG_ITS ---
Patient Problems: Active and Suspected Problems Lactic acidosis (Acute) Respiratory failure (Acute) Achalasia (Acute) Subjective: Patient evaluated sleeping in bed. She does grunt when spoke to however is lethargic and did not open eyes. No abdominal pain or complaints with the PEG tube. - Physical Exam Vitals/I&O's: Vital Signs Temp Pulse Resp BP Pulse Ox 98.6 F 59 L 17 153/74 H 93 03/07/20 05:50 03/07/20 06:52 03/07/20 05:50 03/07/20 05:50 03/07/20 07:19 Oxygen Flow Rate (L/min) 4 Oxygen Delivery Method Room Air Weight: 155 lb 6 oz Body Mass Index (BMI) 26.9 Intake and Output for Last 24 Hours 03/05/20 03/06/20 03/07/20 23:59 23:59 23:59 Intake Total 2456.00 / 2456.00 3125.00 / 3125.00 1226.66 / 1226.66 Output Total 400 / 550 650 / 650 Balance 2056.00 / 1906.00 2475.00 / 2475.00 1226.66 / 1226.66 Abdomen: - - PEG tube site- dressing intact. No drainage noted. Abdominal binder intact. Microbiology Past 72 Hours 02/27/20 22:40 Blood Culture (Wb) - Anticubital Right Blood Culture - Final No growth in 5 days. 02/27/20 22:35 Blood Culture (Wb) - Left Wrist Blood Culture - Final No growth in 5 days. Laboratory Results 03/06/20 12:15: POC Glucose 103 03/06/20 18:00: POC Glucose 153 H 03/06/20 21:25: POC Glucose 149 H 03/06/20 23:43: POC Glucose 144 H 03/07/20 05:52: Sodium 140, Potassium 4.1, Chloride 110 H, Carbon Dioxide 25.0, Anion Gap 5, BUN 8, Creatinine 0.43 L, Estim Creat Clear Calc 107.90, Est GFR (MDRD) Af Amer 190, Est GFR (MDRD) Non-Af 157, BUN/Creatinine Ratio 18.6, Glucose 135 H, Calcium 8.2 L, Total Bilirubin 0.30, AST 29, ALT 21, Alkaline Phosphatase 68, Total Protein 5.8 L, Albumin 2.1 L, Globulin 3.7, Albumin/Globulin Ratio 0.6 L 03/07/20 05:52: WBC 5.4, RBC 3.49 L, Hgb 9.7 L, Hct 30.4 L, MCV 87.1, MCH 27.8, MCHC 31.9 L, RDW Std Deviation 43.2, RDW Coeff of Jesica 13.9, Plt Count 211, MPV 11.1, Immature Gran % (Auto) 0.600, Neut % (Auto) 81.2 H, Lymph % (Auto) 10.1 L, [place] % (Auto) 7.9, Eos % (Auto) 0.0, Baso % (Auto) 0.2, Absolute Neuts (auto) 4.4, Absolute Lymphs (auto) 0.55 L, Nucleated RBC % 0, Differential Comment , Platelet Estimate ADEQUATE, RBC Morphology NORM C+C Current Medications Acetaminophen (Acetaminophen 650 Mg/20 Ml Udc) 650 mg GT Q6H PRN PRN PRN Reason: Pain 1-10 or Fever Last Admin: 03/07/20 02:02 Dose: 650 mg Documented by: Albuterol Sulfate (Albuterol 2.5 Mg/3 Ml Vial.Neb.) 2.5 mg INHALATION Q2H PRN PRN PRN Reason: sob/wheezing Last Admin: 03/06/20 09:29 Dose: 2.5 mg Documented by: Calamine/Phenol (Menthol/Lanolin/Calamine/Znox 113 Gm Tube) 1 applic TOPICAL TID BLESSING; Protocol Last Admin: 03/07/20 06:35 Dose: 1 applicatio Documented by: Enoxaparin Sodium (Enoxaparin 40 Mg/0.4 Ml Syringe) 40 mg SC DAILY BLESSING Last Admin: 03/07/20 09:03 Dose: 40 mg Documented by: Enteral Nutritional Formula (Jevity 1.5. 1,000 Ml Bottle) 275 ml GT 4X/DAY BLESSING Last Admin: 03/07/20 09:03 Dose: 150 ml Documented by: Sodium Chloride () 250 mls @ 15 mls/hr IV .[id number] PRN PRN Reason: Saline Flush Last Infusion: 03/02/20 20:34 Dose: Infused Documented by: Sodium Chloride () 250 mls @ 15 mls/hr IV .[id number] PRN PRN Reason: Additional IVPB Infusion Sodium Chloride () 250 mls @ 15 mls/hr IV .[id number] PRN PRN Reason: Saline Flush Sodium Chloride () 250 mls @ 15 mls/hr IV .[id number] PRN PRN Reason: Additional IVPB Infusion Pantoprazole Sodium 40 mg/ (Sodium Chloride) 110 mls @ 330 mls/hr IV Q24 BLESSING Last Admin: 03/07/20 09:02 Dose: 330 mls/hr Documented by: Insulin Human Lispro (Insulin Lispro 100 Unit/Ml Insuln.Pen) 0 unit SC Q6 BLESSING; Protocol Last Admin: 03/07/20 06:35 Dose: Not Given Documented by: Nystatin (Nystatin Powder 15gm Bottle) 1 applic TOPICAL TID BLESSING; Protocol Last Admin: 03/07/20 06:35 Dose: 1 applicatio Documented by: Polyethylene Glycol (Polyethylene Glycol 3350 17 Gm Packet) 17 gm PO DAILY BLESSING Last Admin: 03/07/20 09:04 Dose: Not Given Documented by: Senna/Docusate Sodium (Senna/Docusate Sodium 1 Tablet) 2 tablet PO BID BLESSING Last Admin: 03/07/20 09:04 Dose: Not Given Documented by: Sodium Chloride (0.9% Saline Lock 10 Ml Syringe) 10 - 40 ml IV UD PRN PRN Reason: SALINE FLUSH Last Admin: 03/05/20 11:57 Dose: 10 ml Documented by: Sodium Chloride (0.9% Saline Lock 10 Ml Syringe) 10 - 40 ml IV UD PRN PRN Reason: SALINE FLUSH Medical Necessity - Tobacco Use Smoking Status: Unknown if ever smoked Assessment/Plan All Active Problems Lactic acidosis (Acute) Respiratory failure (Acute) Achalasia (Acute) I am following this patient with Dr. Levy in Dr. Hawthorne's absence. PEG tube ready to be used Dietitian recommendations on tube feeds Dr. Hawthorne would like upper GI in the future as an outpatient and possible manometry Follow-up with Dr. Hawthorne in 2 weeks from discharge We will sign off at this time Please re-consult if needed Inpatient E&M: [id number] [facility] [[email or web address] Hosp L1 - no charge
--- NOTE | 2020-03-07 10:22 | CASEMGMT ---
SW sent Sausage Mixer's peg tube recommendations to [facility]. Madiha HERRERA SPLIT LEATHER MOSSER
[2020-03-07 12:05] LABS: Bedside Glucose 106 mg/dL (70-110)
--- NOTE | 2020-03-07 13:07 | CASEMGMT ---
SARA called [facility] and left a voice mail for Mer letting her know patient will not be coming today. Madiha HERRERA MSW
--- NOTE | 2020-03-07 13:52 | PCM.PN.HOSP ---
Patient Problems: Active and Suspected Problems Lactic acidosis (Acute) Respiratory failure (Acute) Achalasia (Acute) Subjective: Groggy today, vital signs are stable. She does open her eyes to verbal cues Vitals/I&O's: Vital Signs Temp Pulse Resp BP Pulse Ox 98.4 F 54 L 16 148/68 H 94 03/07/20 11:50 03/07/20 11:50 03/07/20 11:50 03/07/20 11:50 03/07/20 11:50 Oxygen Flow Rate (L/min) 4 Oxygen Delivery Method Room Air Weight: 155 lb 6.003 oz Body Mass Index (BMI) 26.9 Intake and Output for Last 24 Hours 03/05/20 03/06/20 03/07/20 23:59 23:59 23:59 Intake Total 2456.00 / 2456.00 3125.00 / 3125.00 1811.66 / 1811.66 Output Total 400 / 550 650 / 650 Balance 2056.00 / 1906.00 2475.00 / 2475.00 1811.66 / 1811.66 General: Alert, Oriented x3, Cooperative, No apparent distress, sleepy HEENT: Atraumatic, PERRLA, EOMI, Normocephalic Oral: Moist Mucosa Neck: Supple, No JVD Lungs: Normal air movement, No rhonchi, No wheeze, No rales, Diminished Cardiovascular: Regular rate, Regular Rhythm, Normal S1, Normal S2, No murmurs Abdomen: Soft, Non Tender, Non-Distended, No Hepato-splenomegaly, PEG tube in place Extremities: No edema, Capillary Refill Less than 3 Seconds Skin: No rashes, No breakdown Neurological: Neuro grossly intact, Sensory exam intact to light touch and pain Psych/Mental Status: Normal Affect, Appropriate Laboratory Results 03/06/20 18:00: POC Glucose 153 H 03/06/20 21:25: POC Glucose 149 H 03/06/20 23:43: POC Glucose 144 H 03/07/20 05:52: Sodium 140, Potassium 4.1, Chloride 110 H, Carbon Dioxide 25.0, Anion Gap 5, BUN 8, Creatinine 0.43 L, Estim Creat Clear Calc 107.90, Est GFR (MDRD) Af Amer 190, Est GFR (MDRD) Non-Af 157, BUN/Creatinine Ratio 18.6, Glucose 135 H, Calcium 8.2 L, Total Bilirubin 0.30, AST 29, ALT 21, Alkaline Phosphatase 68, Total Protein 5.8 L, Albumin 2.1 L, Globulin 3.7, Albumin/Globulin Ratio 0.6 L 03/07/20 05:52: WBC 5.4, RBC 3.49 L, Hgb 9.7 L, Hct 30.4 L, MCV 87.1, MCH 27.8, MCHC 31.9 L, RDW Std Deviation 43.2, RDW Coeff of Jesica 13.9, Plt Count 211, MPV 11.1, Immature Gran % (Auto) 0.600, Neut % (Auto) 81.2 H, Lymph % (Auto) 10.1 L, [place] % (Auto) 7.9, Eos % (Auto) 0.0, Baso % (Auto) 0.2, Absolute Neuts (auto) 4.4, Absolute Lymphs (auto) 0.55 L, Nucleated RBC % 0, Differential Comment , Platelet Estimate ADEQUATE, RBC Morphology NORM C+C 03/07/20 11:53: POC Glucose 106 Current Medications Acetaminophen (Acetaminophen 650 Mg/20 Ml Udc) 650 mg GT Q6H PRN PRN PRN Reason: Pain 1-10 or Fever Last Admin: 03/07/20 02:02 Dose: 650 mg Documented by: Albuterol Sulfate (Albuterol 2.5 Mg/3 Ml Vial.Neb.) 2.5 mg INHALATION Q2H PRN PRN PRN Reason: sob/wheezing Last Admin: 03/06/20 09:29 Dose: 2.5 mg Documented by: Calamine/Phenol (Menthol/Lanolin/Calamine/Znox 113 Gm Tube) 1 applic TOPICAL TID BLESSING; Protocol Last Admin: 03/07/20 06:35 Dose: 1 applicatio Documented by: Enoxaparin Sodium (Enoxaparin 40 Mg/0.4 Ml Syringe) 40 mg SC DAILY BLESSING Last Admin: 03/07/20 09:03 Dose: 40 mg Documented by: Enteral Nutritional Formula (Jevity 1.5. 1,000 Ml Bottle) 275 ml GT 4X/DAY BLESSING Last Admin: 03/07/20 09:03 Dose: 150 ml Documented by: Sodium Chloride () 250 mls @ 15 mls/hr IV .[id number] PRN PRN Reason: Saline Flush Last Infusion: 03/02/20 20:34 Dose: Infused Documented by: Sodium Chloride () 250 mls @ 15 mls/hr IV .[id number] PRN PRN Reason: Additional IVPB Infusion Sodium Chloride () 250 mls @ 15 mls/hr IV .[id number] PRN PRN Reason: Saline Flush Sodium Chloride () 250 mls @ 15 mls/hr IV .[id number] PRN PRN Reason: Additional IVPB Infusion Pantoprazole Sodium 40 mg/ (Sodium Chloride) 110 mls @ 330 mls/hr IV Q24 BLESSING Last Infusion: 03/07/20 09:48 Dose: Infused Documented by: Insulin Human Lispro (Insulin Lispro 100 Unit/Ml Insuln.Pen) 0 unit SC Q6 BLESSING; Protocol Last Admin: 03/07/20 11:56 Dose: Not Given Documented by: Nystatin (Nystatin Powder 15gm Bottle) 1 applic TOPICAL TID BLESSING; Protocol Last Admin: 03/07/20 06:35 Dose: 1 applicatio Documented by: Polyethylene Glycol (Polyethylene Glycol 3350 17 Gm Packet) 17 gm GT DAILY BLESSING Senna/Docusate Sodium (Senna/Docusate Sodium 1 Tablet) 2 tablet GT BID BLESSING Sodium Chloride (0.9% Saline Lock 10 Ml Syringe) 10 - 40 ml IV UD PRN PRN Reason: SALINE FLUSH Last Admin: 03/05/20 11:57 Dose: 10 ml Documented by: Sodium Chloride (0.9% Saline Lock 10 Ml Syringe) 10 - 40 ml IV UD PRN PRN Reason: SALINE FLUSH STROKE Vital Signs/Narrative: Vital Signs Temp Pulse Resp BP Pulse Ox 03/07/20 11:50 98.4 F 54 L 16 148/68 H 94 Medical Necessity - Tobacco Use Smoking Status: Unknown if ever smoked Assessment/Plan All Active Problems Lactic acidosis (Acute) Respiratory failure (Acute) Achalasia (Acute) 1. Septic shock and acute hypoxic respiratory failure secondary to aspiration pneumonia which led to cardiopulmonary arrest -She is feeling better now and would like to go home when able. She needs to be seen by PT and OT -She failed repeat cookie swallow. She had her PEG tube placed yesterday, will plan to start tube feeds and check residuals as well as free water flushes -Plan will be to transition to a senior care facility on discharge -She completed her antibiotic course -Appreciate ID recommendations -I would like to restart her home medications as soon as they are confirmed unfortunately she is not a great historian is unable to help and her family has been unable to help as well. 2. HTN/HLD/paroxysmal A. fib -Blood pressure is stable we will resume her home blood pressure medication when able -Continue her statin when she is able to take p.o. -Continue to hold her Xarelto for possible PEG tube placement 3. DM 2 -Holding her oral regimen -Continue with sliding scale insulin, monitor with Accu-Cheks AC at bedtime. Will make adjustments as necessary 4. GERD -Stable -Continue PPI DVT: Lovenox Inpatient E&M: [id number] Subs Hosp L2
[2020-03-07 18:05] LABS: Bedside Glucose 134 mg/dL (70-110)
[2020-03-07] MEDS: Benztropine 2 MG Tablet 1 MG GT (21:29)
[2020-03-07] MEDS: OLANZapine 10 MG Tablet GT (21:29)
[2020-03-07] MEDS: Atorvastatin Calcium 10 MG Tablet 5 MG GT (21:29)
[2020-03-07 23:51] LABS: Bedside Glucose 167 mg/dL (70-110)
[2020-03-07] MEDS: Insulin Lispro 100 UNIT/ML INSULN.PEN SC (23:51)
[2020-03-08] VITALS (7 sets, daily range): BP systolic 145–154; BP diastolic 68–74; PULSE 55–74; RESP 16–18; TEMP 36.4–36.9; O2SAT 91–95
[2020-03-08 00:10] LABS: Bedside Glucose 140 mg/dL (70-110)
[2020-03-08] MEDS: Acetaminophen 650 MG/20 ML UDC GT (02:27)
[2020-03-08 05:19] LABS: ALB/GLOB Ratio 0.6 RATIO (0.9-2.4); AST(SGOT) 21 U/L (15-37); Alanine Aminotransfer ALT/SGPT 25 U/L (13-56); Albumin, Serum 2.1 g/dL (3.2-5.0); Alkaline Phosphatase 69 U/L (45-117); Anion Gap 5 (5-15); BUN 11 mg/dL (7-18); BUN/Creat Ratio 26.8 RATIO (10-20); Calcium,Total 8.2 mg/dL (8.5-10.1); Chloride 110 mmol/L (98-107); Creatinine, Serum 0.41 mg/dL (0.55-1.02); EST Glomerular Filtration Rate 165 mL/min (>60); Est Glom Filt Rate - Afr Amer 200 mL/min (>60); Estimated Creatinine Clearance 113.16 ml/min; Globulin 3.8 g/dL (2.2-4.2); Glucose 123 mg/dL (74-106); Potassium 3.9 mmol/L (3.5-5.1); Protein, Total 5.9 g/dL (6.4-8.2); Sodium Level 142 mmol/L (136-145)
[2020-03-08] MEDS: Menthol/Lanolin/Calamine/Znox 113 GM Tube 1 APPLIC TOPICAL (05:40)
[2020-03-08] MEDS: Nystatin Powder 15gm Bottle 1 APPLIC TOPICAL (05:40)
[2020-03-08 05:51] LABS: Bedside Glucose 134 mg/dL (70-110)
--- NOTE | 2020-03-08 09:08 | CASEMGMT ---
Patient will likely be discharged today. SARA called [facility] and put her on the will call list. SARA also faxed her negative COVID to [facility]. Madiha HERRERA MSW
[2020-03-08] MEDS: Jevity 1.5. 1,000 ML Bottle 275 ML GT (09:30)
[2020-03-08] MEDS: Aspirin 81 MG TAB.CHEW GT (09:30)
[2020-03-08] MEDS: Benztropine 2 MG Tablet 1 MG GT (09:30)
[2020-03-08] MEDS: Lisinopril 40 MG Tablet GT (09:31)
[2020-03-08] MEDS: Enoxaparin 40 MG/0.4 ML Syringe SC (09:34)
[2020-03-08] MEDS: 0.9% Saline Lock 10 ML Syringe IV (09:34)
--- NOTE | 2020-03-08 11:24 | PCM.TXEXTCAR ---
- Diet 02/28/20 02:31 Diet: Nothing Per Oral - Routine Orders/Code Status Routine Lab Work: CBC, BMP Code Status: Full Code - Wound(s) left buttocks Wound Type: blister right buttock Wound Type: intact blister (pressure vs. friction) Dressing Change: applied Mepilex - Therapies Physical Therapy: Eval and Treat Occupational Therapy: Eval and Treat - Allergies/Procedures Done in Hospital Allergies/Adverse Reactions: Allergies No Known Allergies Allergy (Verified 02/06/20 00:24) Procedures: CPR performed - Type of Care/Length of Stay Estimated LOS: Convalescent Care Less Than 30 days Type of Care Needed: Skilled Rehab Potential: Fair Prognosis: Fair - Additional Orders/Day of Discharge Day of Discharge: 03/08/20 - Dietary and Speech Recommendations Dietitian Recommendations/Changes: Continue Enteral nutrition support at goal rate as tolerated via PEG- 275mL bolus of Jevity 1.5 4x/day w/125mL H2O flush before and after each feed to provide 1650 calories, 70 g protein, and 1836mL total fluid per day. Continue daily wts. - Follow Up Care Primary Care Physician: Jose Brown MD [Primary Care Provider] - Please follow up with your Primary Care Physician in: 3-5 days
--- NOTE | 2020-03-08 11:27 | DS.PCM_ITS ---
Discharge Date and Diagnosis - Problem List Patient Problems: Active and Suspected Problems Lactic acidosis (Acute) Respiratory failure (Acute) Achalasia (Acute) Date of Admission: 02/28/20 Date of Discharge: 03/08/20 - Primary Discharge Diagnosis Acute Problems: Active Problems Lactic acidosis (Acute) Respiratory failure (Acute) Achalasia (Acute) - Secondary Discharge Diagnosis Chronic Problems: Chronic Problems Atrial fibrillation with RVR (Chronic) Acute bronchitis (Chronic) Hypertension (Chronic) Hyperlipidemia (Chronic) Chronic insomnia (Chronic) Diabetes mellitus, type II (Chronic) Hospital Course and Treatment Imaging Results: Clinical Impression(s) from Imaging Studies Chest X-Ray 02/27/20 22:25 IMPRESSION: 1. Endotracheal tube abutting the right mainstem bronchi, may retract 3 cm to mid trachea. 2. Prominent interstitial markings and patchy airspace disease within the bilateral lung parenchyma. Electronically Signed: Christophe Hahn DO at 0:18 EST , Service support , Chest X-Ray 02/28/20 00:13 IMPRESSION: Possible mild vascular congestion with bilateral basilar atelectasis. Electronically Signed: Ximena Quiroga MD at 1:34 EST , Service support , Chest CT 02/28/20 00:56 IMPRESSION: Bilateral multifocal pneumonia with areas of superimposed atelectasis as described. Achalasia. No pleural effusion or pneumothorax. Electronically Signed: Ximena Quiroga MD at 1:42 EST , Service support , Chest X-Ray 02/28/20 08:30 IMPRESSION: Vascular congestion. Mild increased markings in the right upper lobe. Follow-up is recommended. Electronically Signed: Alex Meadows, at 10:14 EST , Service support , Brain CT 02/28/20 22:24 IMPRESSION: Chronic changes as described. No acute intracranial hemorrhage or space-occupying lesion. Electronically Signed: Ximena Quiroga MD at 1:38 EST , Service support , Consultations 03/06/20 08:16 Consult: Onc/Wound/brass pourer Routine Comment: Reason for Consult:: blister to buttocks Operations: None Procedures: CPR performed Summary of Care Provided: Per HPI: The patient is a 64 year old female patient recently diagnosed with atrial fibrillation with rapid ventricular response who was receiving treatment presents to the emergency room by squad. The patient is sedated and intubated and unable to provide history, therefore, history is obtained via chart and indirectly through family members. Apparently, she had been eating something earlier in the day and had some respiratory distress and subsequently cleared the obstruction but later began to have respiratory distress again and they called the ambulance. Upon arrival the squad found her to be hypoxic with a pulse ox of 70% and they attempted CPAP while in route to the hospital the patient had a full cardiopulmonary arrest and CPR was initiated. Per ER physician when she was intubated in the emergency room there was copious oral contents in the airway and there was concern for prolonged period of hypoxia. Also her pupils were dilated and fixed upon arrival per ER physician. She did respond to CPR and they obtained a spontaneous pulse, patient was intubated and sedated and placed on ventilator. CT scan was obtained negative for hemorrhage. Laboratory studies obtained showed a WBC count of 13.7, hemoglobin 12.6, hematocrit 41, platelets 387, sodium 137, potassium 3.9, chloride 104, bicarb 20, creatinine 1.5, BUN 19, glucose 371, lactate 7.4, troponin 0.2, Covid negative. Case was discussed by ER physician to Dr. Enciso pediatrics teacher and patient will be admitted to the ICU. Hospital Course: 1. Septic shock and acute hypoxic respiratory failure secondary to aspiration pneumonia which led to cardiopulmonary arrest -She is feeling better now and would like to go home, however discussed with her that she will need to go to a intermediate given that she is needing increased physical therapy as well as tube feeds. I discussed with her the plan for discharge today to half-way facility and she expressed understanding the risk benefits of going to SNF and would like to go SNF today -She failed repeat cookie swallow. She had her PEG tube placed yesterday, will plan to start tube feeds and check residuals as well as free water flushes -Plan will be to transition to a half-way facility on discharge -She completed her antibiotic course, she was extubated on 03/02/2020 -Appreciate ID recommendations -Her home medications were continued. 2. HTN/HLD/paroxysmal A. fib -Blood pressure is stable we will resume her home blood pressure medication when able -Continue her statin when she is able to take p.o. -She can restart her Xarelto today -I discontinued her verapamil secondary to low heart rate. We will continue her lisinopril 3. DM 2 -Holding her oral regimen, she can be discharged on her p.o. Metformin -Continue with sliding scale insulin, monitor with Accu-Cheks AC at bedtime. Will make adjustments as necessary 4. GERD -Stable -Continue PPI Patient Problems: Active and Suspected Problems Lactic acidosis (Acute) Respiratory failure (Acute) Achalasia (Acute) - Physical Exam Vitals/I&O's: Vital Signs Temp Pulse Resp BP Pulse Ox 98.0 F 74 17 154/72 H 94 03/08/20 09:22 03/08/20 11:20 03/08/20 09:22 03/08/20 09:22 03/08/20 09:22 Oxygen Flow Rate (L/min) 4 Oxygen Delivery Method Room Air Weight: 151 lb 10.848 oz Body Mass Index (BMI) 26.9 Intake and Output for Last 24 Hours 03/06/20 03/07/20 03/08/20 23:59 23:59 23:59 Intake Total 3125.00 / 3125.00 3311.66 / 3311.66 525 / 525 Output Total 650 / 650 Balance 2475.00 / 2475.00 3311.66 / 3311.66 525 / 525 General: Alert, Oriented x3, Cooperative, No apparent distress HEENT: Atraumatic, PERRLA, EOMI, Normocephalic Oral: Moist Mucosa Neck: Supple, No JVD Lungs: Normal air movement, No rhonchi, No wheeze, No rales, Diminished Cardiovascular: Regular rate, Regular Rhythm, Normal S1, Normal S2, No murmurs Abdomen: Soft, Non Tender, Non-Distended, No Hepato-splenomegaly, PEG tube in place Extremities: No edema, Capillary Refill Less than 3 Seconds Skin: No rashes, No breakdown Neurological: Neuro grossly intact, Sensory exam intact to light touch and pain Psych/Mental Status: Normal Affect, Appropriate Microbiology Past 72 Hours 03/07/20 12:30 Stool Enteric Bacteriology - Final Campylobacter species 03/07/20 16:00 Mucosa - Nose SARS-CoV-2 Antigen (Rapid) - Final 03/07/20 12:00 Stool C. difficile DNA Amplification - Final Laboratory Results 03/07/20 06:27: POC Glucose 140 H 03/07/20 11:53: POC Glucose 106 03/07/20 17:44: POC Glucose 134 H 03/07/20 23:44: POC Glucose 167 H 03/08/20 04:55: Sodium 142, Potassium 3.9, Chloride 110 H, Carbon Dioxide 27.0, Anion Gap 5, BUN 11, Creatinine 0.41 L, Estim Creat Clear Calc 113.16, Est GFR (MDRD) Af Amer 200, Est GFR (MDRD) Non-Af 165, BUN/Creatinine Ratio 26.8 H, Glucose 123 H, Calcium 8.2 L, Total Bilirubin 0.30, AST 21, ALT 25, Alkaline Phosphatase 69, Total Protein 5.9 L, Albumin 2.1 L, Globulin 3.8, Albumin/Globulin Ratio 0.6 L 03/08/20 05:46: POC Glucose 134 H Current Medications Acetaminophen (Acetaminophen 650 Mg/20 Ml Udc) 650 mg GT Q6H PRN PRN PRN Reason: Pain 1-10 or Fever Last Admin: 03/08/20 02:27 Dose: 650 mg Documented by: Albuterol Sulfate (Albuterol 2.5 Mg/3 Ml Vial.Neb.) 2.5 mg INHALATION Q2H PRN PRN PRN Reason: sob/wheezing Last Admin: 03/06/20 09:29 Dose: 2.5 mg Documented by: Aspirin (Aspirin 81 Mg Tab.Chew) 81 mg GT DAILY@0800 [facility] Last Admin: 03/08/20 09:30 Dose: 81 mg Documented by: Atorvastatin Calcium (Atorvastatin Calcium 10 Mg Tablet) 5 mg GT QHS [facility] Last Admin: 03/07/20 21:29 Dose: 5 mg Documented by: Benztropine Mesylate (Benztropine 2 Mg Tablet) 1 mg GT BID [facility] Last Admin: 03/08/20 09:30 Dose: 1 mg Documented by: Calamine/Phenol (Menthol/Lanolin/Calamine/Znox 113 Gm Tube) 1 applic TOPICAL TID [facility]; Protocol Last Admin: 03/08/20 05:40 Dose: 1 applicatio Documented by: Enoxaparin Sodium (Enoxaparin 40 Mg/0.4 Ml Syringe) 40 mg SC DAILY [facility] Last Admin: 03/08/20 09:34 Dose: 40 mg Documented by: Enteral Nutritional Formula (Jevity 1.5. 1,000 Ml Bottle) 275 ml GT 4X/DAY [facility] Last Admin: 03/08/20 09:30 Dose: 275 ml Documented by: Sodium Chloride () 250 mls @ 15 mls/hr IV .[id number] PRN PRN Reason: Saline Flush Last Infusion: 03/02/20 20:34 Dose: Infused Documented by: Sodium Chloride () 250 mls @ 15 mls/hr IV .[id number] PRN PRN Reason: Additional IVPB Infusion Sodium Chloride () 250 mls @ 15 mls/hr IV .[id number] PRN PRN Reason: Saline Flush Sodium Chloride () 250 mls @ 15 mls/hr IV .[id number] PRN PRN Reason: Additional IVPB Infusion Insulin Human Lispro (Insulin Lispro 100 Unit/Ml Insuln.Pen) 0 unit SC Q6 [facility]; Protocol Last Admin: 03/08/20 05:47 Dose: Not Given Documented by: Lansoprazole (Lansoprazole 15 Mg Capsule.Dr) 30 mg GT DAILY [facility] Lisinopril (Lisinopril 40 Mg Tablet) 40 mg GT DAILY [facility] Last Admin: 03/08/20 09:31 Dose: 40 mg Documented by: Nystatin (Nystatin Powder 15gm Bottle) 1 applic TOPICAL TID [facility]; Protocol Last Admin: 03/08/20 05:40 Dose: 1 applicatio Documented by: Olanzapine (Olanzapine 10 Mg Tablet) 10 mg GT QHS [facility] Last Admin: 03/07/20 21:29 Dose: 10 mg Documented by: Sodium Chloride (0.9% Saline Lock 10 Ml Syringe) 10 - 40 ml IV UD PRN PRN Reason: SALINE FLUSH Last Admin: 03/08/20 09:34 Dose: 10 ml Documented by: Sodium Chloride (0.9% Saline Lock 10 Ml Syringe) 10 - 40 ml IV UD PRN PRN Reason: SALINE FLUSH Home Medications: Medications to take at Discharge Lisinopril 40 mg PO DAILY 12/01/13 Olanzapine 10 mg PO QHS 12/01/13 Aspirin [Aspir-Low] 81 mg PO DAILY 05/18/19 Benztropine [Cogentin] 1 mg PO BID 05/18/19 Calcium Carbonate/Vitamin D3 [Calcium 600 + Vit D Tablet] 1 ea PO BID 05/18/19 Gabapentin [Neurontin] 100 mg PO TIDCM 05/18/19 Metformin HCl 500 mg PO BID 05/18/19 Oxybutynin [Ditropan] 10 mg PO DAILY 05/18/19 Simvastatin 10 mg PO QHS 05/18/19 Multivitamin [Daily Griffin] 1 ea PO DAILY 02/05/20 Rivaroxaban [Xarelto] 20 mg PO DAILY #30 tab 02/06/20 Jevity 1.5 275 ml GT 4X/DAY bottle 03/08/20 Primary Care Physician: Jose Brown MD [Primary Care Provider] - Please follow up with your Primary Care Physician in: 3-5 days Please Follow Up With: Milton Hawthorne MD When: 2 weeks Disposition: Care Home facility Minutes spent on discharge:: 35 Patient Condition:: Stable Medical Necessity - Tobacco Use Smoking Status: Unknown if ever smoked Meaningful Use Info Meaningful Use Diagnoses (Choose all that apply): None applicable Inpatient E&M: [id number] Disch Hosp
[2020-03-08] MEDS: Lansoprazole 15 MG Capsule.DR 30 MG GT (11:38)
[2020-03-08] MEDS: Insulin Lispro 100 UNIT/ML INSULN.PEN SC (11:42)
--- NOTE | 2020-03-08 12:08 | CASEMGMT ---
Patient is ready for discharge to [facility]. SARA called [facility] and arranged for patient to get picked up at 1400 via cot. SARA faxed orders to [facility]. SARA called [facility] and notified Mer of d/c and cotton picking machine operator time. SARA also notified RN, paralegal secretary, and Tyesha at patient's home. Plan: d/c to [facility] under skilled level of care on a convalescent stay. [facility] patient via [facility]. Madiha HERRERA MSW
[2020-03-08 13:00] LABS: Bedside Glucose 201 mg/dL (70-110)
--- NOTE | 2020-03-08 13:28 | NURSING ---
Report called to Hanna, nurse at [facility].
== END 2020-03-08 14:15 | disposition skilled nursing facility (03) | DRG 720 ==
LOC: ED 02-28 01:34 → ICU 02-28 02:43 → PCU 03-02 18:49
PROVIDERS: Anesthesiology; Internal Medicine; Internal Medicine Critical Care Medicine; Surgery; Admitting Provider Family Medicine; Emergency Provider Emergency Medicine; PCP Internal Medicine; Visit Provider Family Medicine
PROC: 0DJ08ZZ Inspection of Upper Intestinal Tract, Via Natural or Artificial Opening Endoscopic (ICD-10-PCS; CPT 43235; principal; 2020-02-28 09:55)
DX: A41.9 Sepsis, unspecified organism (principal); J96.01 Acute respiratory failure with hypoxia; J69.0 Pneumonitis due to inhalation of food and vomit; I46.8 Cardiac arrest due to other underlying condition; R65.21 Severe sepsis with septic shock; Z87.891 Personal history of nicotine dependence; Z79.84 Long term (current) use of oral hypoglycemic drugs; Z79.899 Other long term (current) drug therapy; Z79.02 Long term (current) use of antithrombotics/antiplatelets; I10 Essential (primary) hypertension; E11.9 Type 2 diabetes mellitus without complications; K22.0 Achalasia of cardia; T18.128A Food in esophagus causing other injury, initial encounter; I48.0 Paroxysmal atrial fibrillation; E78.5 Hyperlipidemia, unspecified; E87.2 Acidosis; K22.8 Other specified diseases of esophagus; B95.61 Methicillin susceptible Staphylococcus aureus infection as the cause of diseases classified elsewhere; K21.9 Gastro-esophageal reflux disease without esophagitis; A04.5 Campylobacter enteritis
CPT/HCPCS: 31500; 31720; 36415; 36556; 36600; 51702; 70450; 71045; 71250; 74230; 80048; 80053; 81001; 82550; 82803; 82962; 83036; 83605; 83690; 83735; 83880; 84478; 84484; 85025; 85610; 85730; 87040; 87070; 87077; 87186; 87205; 87426; 87493; 87506; 92507; 92526; 92611; 92950; 93005; 94002; 94003; 94640; 94660; 97110; 97116; 97162; 97166; 97530; 97535; 97802; 97803; 99251; 99285; J7030; J7040; J7050; J7120; A4216; C1751; G0463; J0295; J1610; J2405; J3010

== ENCOUNTER 2020-04-01 00:11 | Inpatient (IN) | payer MEDICAID, SELFPAY ==
[2020-03-06 13:19] VITALS: BMI 26.9
[2020-04-01] VITALS (16 sets, daily range): BP systolic 104–136; BP diastolic 52–103; PULSE 79–104; RESP 24–44; TEMP 36.8–38.2; O2SAT 2–97; BMI 26.3; BMI 26.5
--- NOTE | 2020-04-01 00:40 | EKG12_ITS ---
Test Reason : SOB Blood Pressure : / mmHG Vent. Rate : 093 BPM Atrial Rate : 093 BPM P-R Int : 120 ms QRS Dur : 074 ms QT Int : 352 ms P-R-T Axes : 041 025 037 degrees QTc Int : 437 ms Normal sinus rhythm Normal ECG Confirmed by VALDO ARELLANO MD ([id number]), primer expeditor and drier SHEY ANTHONY ([id number]) on 04/04/2020 6:55:29 AM Referred By: HAYDEE Confirmed By:VALDO ARELLANO MD
--- NOTE | 2020-04-01 00:40 | RAD_ITS ---
STUDY: X-RAY CHEST REASON FOR EXAM: Female, 65 years old. Cough, shortness of breath. TECHNIQUE: Single AP portable view of the chest. COMPARISON: 02/28/2020. FINDINGS: Decreased inspiration with vascular crowding. Right basilar patchy opacity which may indicate pneumonia. There is no demonstrated pleural abnormality. Normal size heart. Normal mediastinum and mike. Normal visualized pulmonary arteries. There is atherosclerotic calcification of the aortic arch with tortuosity. There are diffuse degenerative changes of the visualized thoracic spine. There is degenerative osteoarthritis of the bilateral shoulders. There is no demonstrated abnormality of the visualized soft tissue structures of the upper abdomen. RAD/Chest 1 View (Portable) IMPRESSION: Right basilar infiltrate versus atelectasis, clinical correlation recommended. Electronically Signed: Ximena Quiroga MD at 1:44 EST , Service support ,
[2020-04-01] MEDS: Albuterol 2.5 MG/3 ML VIAL.NEB. INHALATION ×3 (00:54)
[2020-04-01] MEDS: Ipratropium/Albuterol Sulfate 3 ML AMPUL.NEB INHALATION (00:54)
[2020-04-01 01:07] LABS: Absolute Lymphocyte Count 0.84 X10^3/uL (0.83-4.51); Absolute Neutrophil Count 8.8 X10^3/uL (2.0-7.7); Basophil# 0.03 X10^3/uL; Basophil% 0.3 % (0-1); Eosinophil# 0.02 X10^3/uL; Eosinophils% 0.2 % (0-5); Hematocrit 33.7 % (37-47); Hemoglobin 10.5 g/dL (12.0-15.0); Lymphocyte # 0.84 X10^3/ul (4.0); Lymphocyte % 7.9 % (19-41); Mean Corp Hgb Conc 31.2 g/dL (32-36); Mean Corpuscular Hgb 27.3 pg (27.0-32.0); Mean Corpuscular Volume 87.5 fL (81-99); Mean Platelet Vol. 11.9 fl (6.2-12.0); Monocyte# 0.84 X10^3/uL; Monocyte% 7.9 % (0-10); NRBC Flagged by Analyzer 0 % (0-5); Platelet Count 219 K/mm3 (150-450); RBC Distribution Width CV 14.6 % (11.6-14.6); RBC Distribution Width SD 46.2 fl (35.1-43.9); Red Blood Count 3.85 M/mm3 (4.2-5.4); White Blood Count 10.6 K/mm3 (4.4-11.0)
[2020-04-01 01:23] LABS: ALB/GLOB Ratio 0.5 RATIO (0.9-2.4); Albumin, Serum 2.5 g/dL (3.2-5.0); BUN 29 mg/dL (7-18); BUN/Creat Ratio 52.8 RATIO (10-20); Calcium,Total 8.8 mg/dL (8.5-10.1); Creatinine, Serum 0.55 mg/dL (0.55-1.02); EST Glomerular Filtration Rate 118 mL/min (>60); Est Glom Filt Rate - Afr Amer 143 mL/min (>60); Estimated Creatinine Clearance 43.77 ml/min; Globulin 4.7 g/dL (2.2-4.2); Glucose 137 mg/dL (74-106); Protein, Total 7.2 g/dL (6.4-8.2)
[2020-04-01 01:24] LABS: AST(SGOT) 14 U/L (15-37); Alanine Aminotransfer ALT/SGPT 24 U/L (13-56); Alkaline Phosphatase 96 U/L (45-117); Anion Gap 5 (5-15); Chloride 107 mmol/L (98-107); Potassium 4.6 mmol/L (3.5-5.1); Sodium Level 140 mmol/L (136-145)
[2020-04-01 01:56] LABS: Lactic Acid 1.1 mmol/L (0.4-1.9)
[2020-04-01 02:08] LABS: Bacteria 0 SEEN /hpf (None Seen); Mucous, Urine 0 SEEN /hpf (<or=2+); Red Blood Cells-Urine 0 SEEN /hpf (0-5); Squamous Epithelial Cells - UA 0 SEEN /hpf (5-10)
[2020-04-01 02:09] LABS: Color, Urine Yellow (Yellow); Glucose, Dipstick Normal (Normal); Ketone-Dipstick Negative (Negative); Leukocyte Esterase-Dipstick 25 /ul (Negative); Nitrite-Dipstick Negative (Negative); Occult Blood-Urine 10 /ul (Negative); Protein-Dipstick 15 mg/dl (Negative); Specific Gravity, Urine 1.015 (1.002-1.030); Urine Bilirubin Dipstick Negative (Negative); Urine Clarity Sl. Cloudy (Clear); Urine Urobilinogen 4 mg/dl (Normal)
[2020-04-01 02:14] LABS: White Blood Cells 0-5 SEEN /hpf (0-5)
--- NOTE | 2020-04-01 02:28 | ED.VISSUMM ---
- ER Visit Summary Date of Service: 04/01/20 Chief Complaint: Shortness of breath History of Present Illness: The patient is a 65 F presenting with shortness of breath, cough, and fever. These symptoms started today. She had temperature up to 100.8. She has a productive cough. She denies chest pain. She just began having diarrhea tonight. She complains of myalgias. She was recently tested for Covid and was negative. Physical Examination: Blood pressure 119/79, temperature 100.8, heart rate 94, respiratory rate 25, pulse ox 95% on 2 L Alert no acute distress. HEENT exam dry mucous membranes. Neck is supple. Lungs are wheezing and diminished bilaterally. Heart is regular rate and rhythm. Abdomen is soft nontender nondistended. Extremities are unremarkable. Skin is warm and dry. No focal neurologic deficit. Remainder of exam is unremarkable. Emergency Department Course and Treatment: EKG is sinus rhythm rate of 93 with no acute ischemic changes. CBC shows hemoglobin 10.5. Chemistries show glucose 137, BUN 29. Urinalysis unremarkable. Troponin is negative. Lactic acid normal. Rapid Covid is negative. Blood cultures were sent. She is given albuterol, Atrovent aerosols. She was given Tylenol. She was given IV fluids, Rocephin, Zithromax. Chest x-ray read by myself and radiology shows right basilar infiltrate versus atelectasis, clinical correlation recommended. Patient is on 2 L nasal cannula, she does not wear home O2. Discussed with hospitalist for admission. Disposition: Admission Impression: Community acquired pneumonia, hypoxia This note was generated with [employer] dictation software. It may contain incorrect words, spelling, and punctuation that were not noted in review of the chart prior to signing ED Disposition - Plan for ED Patient:
[2020-04-01] MEDS: 0.9% Normal Saline 1,000 ML 999 ML IV (02:35)
[2020-04-01] MEDS: Ceftriaxone 1 GM/50 ML BAG IV (02:36)
[2020-04-01] MEDS: Acetaminophen 500 MG Tablet 1000 MG PO (02:44)
--- NOTE | 2020-04-01 02:45 | PCM.HP.STD ---
Problem List (1) Achalasia Status: Chronic (2) Acute bronchitis Status: Chronic Qualifiers: Bronchitis organism: unspecified organism Qualified Code(s): J20.9 - Acute bronchitis, unspecified (3) Atrial fibrillation with RVR Status: Chronic (4) Chronic insomnia Status: Chronic (5) Diabetes mellitus, type II Status: Chronic Qualifiers: Diabetes mellitus half-way insulin use: without half-way use Diabetes mellitus complication status: with other specified complication Qualified Code(s): E11.69 - Type 2 diabetes mellitus with other specified complication (6) Hyperlipidemia Status: Chronic Qualifiers: Hyperlipidemia type: unspecified Qualified Code(s): E78.5 - Hyperlipidemia, unspecified (7) Hypertension Status: Chronic Qualifiers: Hypertension type: essential hypertension Qualified Code(s): I10 - Essential (primary) hypertension (8) Sepsis Status: Acute (9) Aspiration pneumonia Status: Acute History of Present Illness Date of Admission: 04/01/20 Chief Complaint: Shortness of breath The patient is a 65 year old F who lives at [facility] and with a significant history of diabetes mellitus; atrial fibrillation and hyperlipidemia and who presents emergency department with shortness of breath. His symptoms started within 24 hours of presentation. Associated with her symptom is fever; and a wet cough. Of note patient was admitted on 02/28/2020 and discharged on 03/08/2020 at our hospital for septic shock secondary to aspiration pneumonia which led to cardiopulmonary arrest. She had a PEG tube placed during that hospitalization. Past Medical History Past Medical History (Chronic Problems): Chronic Problems Atrial fibrillation with RVR (Chronic) Acute bronchitis (Chronic) Hypertension (Chronic) Hyperlipidemia (Chronic) Chronic insomnia (Chronic) Diabetes mellitus, type II (Chronic) Achalasia (Chronic) Allergies No Known Allergies Allergy (Verified 04/01/20 00:12) Home Medications: Ambulatory Orders Medication Instructions Recorded Lisinopril 40 mg PO DAILY 12/01/13 Olanzapine 10 mg PO QHS 12/01/13 Aspirin [Aspir-Low] 81 mg PO DAILY 05/18/19 Benztropine [Cogentin] 1 mg PO BID 05/18/19 Calcium Carbonate/Vitamin D3 1 ea PO BID 05/18/19 [Calcium 600 + Vit D Tablet] Gabapentin [Neurontin] 100 mg PO TIDCM 05/18/19 Metformin HCl 500 mg PO BID 05/18/19 Oxybutynin [Ditropan] 10 mg PO DAILY 05/18/19 Simvastatin 10 mg PO QHS 05/18/19 Multivitamin [Daily Griffin] 1 ea PO DAILY 02/05/20 Rivaroxaban [Xarelto] 20 mg PO DAILY #30 tab 02/06/20 Jevity 1.5 275 ml GT 4X/DAY bottle 03/08/20 Surgical History: - - Cholecystectomy. 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 Paternal History Items: - - Patient denies any market maternal or paternal family history including heart disease, diabetes, cancer. VTE Information - Inpt Only VTE Present on Admission: No VTE Pharm Prophylaxis ordered?: No Reason prophylaxis not ordered:: Treatment Not Indicated - Patient is on Xarelto for A. fib and Xarelto will be continued. Patient Problems: Active and Suspected Problems Sepsis (Acute) Aspiration pneumonia (Acute) - Physical Exam Vitals/I&O's: Vital Signs Temp Pulse Resp BP Pulse Ox 100.8 F H 104 H 30 H 106/55 L 95 04/01/20 00:13 04/01/20 02:12 04/01/20 02:12 04/01/20 02:12 04/01/20 02:12 Oxygen Flow Rate (L/min) 3 Oxygen Delivery Method Nasal Cannula Weight: 65.3 kg Body Mass Index (BMI) 26.3 General: Alert, Oriented x3, Cooperative HEENT: Atraumatic, PERRLA, EOMI, Normocephalic, - Neck: Supple, No JVD, Negative Carotid Bruits Lungs: Rhonchi, Tachypneic, Using Accessory Muscles, Wheezes Cardiovascular: Normal S1, Normal S2, No murmurs, Tachycardic Abdomen: Bowel Sounds Present, Soft, Non Tender, - - G-tube in place Extremities: No edema, Capillary Refill Less than 3 Seconds Skin: No rashes, No breakdown Musculoskeletal: No Tenderness to Palpation of Joints or Extremities Neurological: Cranial nerves II-XII grossly intact Psych/Mental Status: Normal Affect, Appropriate Microbiology Past 72 Hours 04/01/20 01:10 Mucosa - Nose SARS-CoV-2 Antigen (Rapid) - Final Laboratory Results 04/01/20 00:25: WBC 10.6, RBC 3.85 L, Hgb 10.5 L, Hct 33.7 L, MCV 87.5, MCH 27.3, MCHC 31.2 L, RDW Std Deviation 46.2 H, RDW Coeff of Jesica 14.6, Plt Count 219, MPV 11.9, Immature Gran % (Auto) 0.700, Neut % (Auto) 83.0 H, Lymph % (Auto) 7.9 L, Bay % (Auto) 7.9, Eos % (Auto) 0.2, Baso % (Auto) 0.3, Absolute Neuts (auto) 8.8 H, Absolute Lymphs (auto) 0.84, Nucleated RBC % 0 04/01/20 00:25: Sodium 140, Potassium 4.6, Chloride 107, Carbon Dioxide 28.0, Anion Gap 5, BUN 29 H, Creatinine 0.55, Estim Creat Clear Calc 43.77, Est GFR (MDRD) Af Amer 143, Est GFR (MDRD) Non-Af 118, BUN/Creatinine Ratio 52.8 H, Glucose 137 H, Calcium 8.8, Total Bilirubin 0.40, AST 14 L, ALT 24, Alkaline Phosphatase 96, Troponin I < 0.015, Total Protein 7.2, Albumin 2.5 L, Globulin 4.7 H, Albumin/Globulin Ratio 0.5 L 04/01/20 01:15: Lactic Acid 1.1 04/01/20 01:50: Urine Color Yellow, Urine Clarity Sl. Cloudy, Urine pH 6.0, Ur Specific Randle 1.015, Urine Protein 15 H, Urine Glucose (UA) Normal, Urine Ketones Negative, Urine Occult Blood 10 H, Urine Nitrite Negative, Urine Bilirubin Negative, Urine Urobilinogen 4 H, Ur Leukocyte Esterase 25 H, Urine RBC 0 SEEN, Urine WBC 0-5 SEEN, Ur Squamous Epith Cells 0 SEEN, Urine Bacteria 0 SEEN, Urine Mucus 0 SEEN Current Medications Azithromycin 500 mg/ Dextrose 255 mls @ 250 mls/hr IV X1 ONE Stop: 04/01/20 03:22 Ceftriaxone Sodium (Rocephin) 1 gm in 50 mls @ 100 mls/hr IV X1 ONE Stop: 04/01/20 02:50 Last Admin: 04/01/20 02:36 Dose: 100 mls/hr Documented by: Sodium Chloride () 1,000 mls @ 999 mls/hr IV .Q1H1M ONE Stop: 04/01/20 03:22 Last Admin: 04/01/20 02:35 Dose: 999 mls/hr Documented by: Assessment/Plan All Active Problems Sepsis (Acute) Aspiration pneumonia (Acute) The patient is a 65 year old F who lives at [facility] and with a significant history of diabetes mellitus; atrial fibrillation and hyperlipidemia and who presents emergency department with shortness of breath; wet cough and fever; and found to have a tachycardia and radiographic evidence of right basilar infiltrate versus atelectasis. Sepsis secondary to pneumonia Patient who is not on baseline oxygen now requiring 2 to 3 L of nasal cannula oxygen. With patient's inability to expectorate secretions and with achalasia likely aspiration pneumonia. Patient denies taking anything by mouth as she is supposed to be n.p.o. and have a PEG tube secondary to history of aspiration pneumonia leading to cardiopulmonary arrest. Received ceftriaxone and azithromycin at the emergency department. Will continue azithromycin. Will start patient on Unasyn for possible aspiration pneumonia. Streptococcus pneumoniae antigen and Legionella urine antigen ordered. As scheduled [id number] Mucinex. Because of wheezing will give Solu-Medrol 125 mg x 1 and then prednisone 40 mg daily. Rapid Covid antigen was negative. Because patient is from [facility] PCR Covid was requested. If PCR is negative okay for patient to be on a regular MedSurg unit as chest x-ray is not classic for Covid. Received Tylenol at the senior living before presentation and also received tylenol at the emergency department. Her temperature at the emergency department was 100.8F. PRN Tylenol ordered. Atrial fibrillation Patients with sinus tachycardia on presentation Placed on MedSurg telemetry Xarelto continued. History of achalasia With G-tube. Tube feeding with Jevity 1.5 continued. Hypertension Blood pressure is stable Lisinopril continued Trend blood pressure and adjust blood pressure medications. Diabetes mellitus Patient with hyperglycemia on presentation On Metformin; held in the hospital setting and in acute disease. Accu-Chek every 6 hours with correction scale insulin. Patient is n.p.o. at a senior living where she lives and she gets tube feeding. DVT prophylaxis Not indicated since patient is on Xarelto for Afib and Xarelto has been continued. Inpatient E&M: 04088 Init Hosp L3
--- NOTE | 2020-04-01 02:53 | ED.RN ---
PT WANTED RN TO CALL ANNELISE ZEPEDA. ATTEMPTED TO CALL BUT VOICE MAIL PICKED UP AND IT WAS UNCLEAR IF THIS WAS THE CORRECTED NUMBER. NO VOICEMAIL WAS LEFT.
[2020-04-01 08:26] LABS: Bedside Glucose 157 mg/dL (70-110)
[2020-04-01] MEDS: Insulin Lispro 100 UNIT/ML INSULN.PEN SC ×3 (09:02→17:55)
[2020-04-01] MEDS: MethylPREDNISolone 125 MG/2 ML Vial IV (09:02)
[2020-04-01] MEDS: 0.9% Saline Lock 10 ML Syringe IV ×2 (09:02→17:54)
[2020-04-01] MEDS: Jevity 1.5. 1,000 ML Bottle 275 ML GT ×3 (10:50→17:54)
[2020-04-01] MEDS: Benztropine 2 MG Tablet 1 MG PO (10:51)
[2020-04-01] MEDS: guaiFENesin 10 ML UDC (200MG/10ML) GT ×2 (10:51→17:54)
[2020-04-01] MEDS: Tolterodine Tartrate 2 MG CAP.SA PO (10:54)
[2020-04-01] MEDS: Gabapentin 100 MG Capsule PO ×3 (10:55→17:54)
[2020-04-01] MEDS: Aspirin E.C. 81 MG Tablet PO (10:56)
[2020-04-01] MEDS: Lisinopril 40 MG Tablet PO (10:56)
[2020-04-01] MEDS: Rivaroxaban 20 MG Tablet PO (11:03)
[2020-04-01 12:01] LABS: Bedside Glucose 187 mg/dL (70-110)
--- NOTE | 2020-04-01 12:33 | PCM.NTREPORT ---
Nutrition Therapy Report - History Nutrition Services has been consulted to:: Manage enteral nutrition Current diet / nutrition support order:: NPO; PEG TF - Anthropometric Measurements Height:: 5 ft 1 in Weight:: 63.7 kg Body Mass Index (BMI):: 26.5 - Relevant Labs Relevant Labs:: RBC 3.85 M/mm3 (4.2-5.4) L 04/01/20 00:25 Hgb 10.5 g/dL (12.0-15.0) L 04/01/20 00:25 Hct 33.7 % (37-47) L 04/01/20 00:25 MCHC 31.2 g/dL (32-36) L 04/01/20 00:25 RDW Std Deviation 46.2 fl (35.1-43.9) H 04/01/20 00:25 Neut % (Auto) 83.0 % (47-70) H 04/01/20 00:25 Lymph % (Auto) 7.9 % (19-41) L 04/01/20 00:25 Absolute Neuts (auto) 8.8 X10^3/uL (2.0-7.7) H 04/01/20 00:25 BUN 29 mg/dL (7-18) H 04/01/20 00:25 BUN/Creatinine Ratio 52.8 RATIO (10-20) H 04/01/20 00:25 Glucose 137 mg/dL (74-106) H 04/01/20 00:25 AST 14 U/L (15-37) L 04/01/20 00:25 Albumin 2.5 g/dL (3.2-5.0) L 04/01/20 00:25 Globulin 4.7 g/dL (2.2-4.2) H 04/01/20 00:25 Albumin/Globulin Ratio 0.5 RATIO (0.9-2.4) L 04/01/20 00:25 - Assessment Food / Nutrition-Related History:: Review of EMR reveals recent wt loss~5-6% x past 1-2 months and UBW closer to 150 lbs not, 140 lbs as documented on admit. Pt appears to tolerate bolus TF overall well and appears adequate to meet estimated nutrition needs. Recent HgbA1C 5.8% indicates overall good glycemic control. Pt appears to be well nourished. Given calculated significant recent wt loss, ? 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 Pt resides at [facility]. - Nutrition Diagnosis Problem / Etiology / Signs & Symptoms (PES):: Dysphagia related to aspiration as evidenced by need for PEG TF for nutrition and NPO status. 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 Evidence of Malnutrition Exists:: No - Nutrition Intervention Nutrition Prescription:: Estimated Nutrition needs~5674-4968 kcal and ~60-70 gm protein/day. Estimated fluid needs~8044-7299 ml free water per day. - Food / Nutrient Delivery Interventions Summary of nutrition intervention:: Continue TF as ordered 275 ml Jevity 1.5Cal 4 times per day with adjustment of water flushes to 120 ml before and after each feeding to provide 1650 kcal, 70 gm protein and 1796 ml free water per day. Maintain NPO status. Continue with daily weights. Nutrition support ordered as / adjusted to:: Continue TF as ordered 275 ml Jevity 1.5Cal 4 times per day with adjustment of water flushes to 120 ml before and after each feeding to provide 1650 kcal, 70 gm protein and 1796 ml free water per day. Nutrition education provided?: No - MNT Monitoring Further MNT monitoring and evaluation required?: Yes MNT Follow-up in:: 3-5 days
[2020-04-01] MEDS: Acetaminophen 325 MG Tablet 650 MG PO (14:04)
--- NOTE | 2020-04-01 14:05 | PCM.HOSP.N ---
Hospitalist Note Patient seen and examined today briefly, she does not appear in any respiratory distress, breath sounds are diminished anteriorly, patient is currently on 2 L via nasal cannula. Patient's antibiotics were changed to Unasyn and Zithromax, I do not feel the patient needs Zithromax currently and will discontinue this medication keep the patient on Unasyn for possible aspiration pneumonia.
[2020-04-01] MEDS: Calcium Carb/Vitamin D 1 TABLET Tablet PO (17:55)
[2020-04-01 18:40] LABS: Bedside Glucose 396 mg/dL (70-110)
[2020-04-02] VITALS (17 sets, daily range): BP systolic 106–133; BP diastolic 40–75; PULSE 62–99; RESP 18–48; TEMP 36.6–39.4; O2SAT 92–99
[2020-04-02] MEDS: Menthol/Lanolin/Calamine/Znox 113 GM Tube 1 APPLIC TOPICAL ×4 (00:39→22:57)
[2020-04-02] MEDS: Atorvastatin Calcium 10 MG Tablet 5 MG PO (00:41)
[2020-04-02] MEDS: OLANZapine 10 MG Tablet PO (00:41)
[2020-04-02] MEDS: Benztropine 2 MG Tablet 1 MG PO ×2 (00:41→10:20)
[2020-04-02] MEDS: Jevity 1.5. 1,000 ML Bottle 275 ML GT ×5 (00:42→22:44)
[2020-04-02] MEDS: guaiFENesin 10 ML UDC (200MG/10ML) GT ×5 (00:43→23:00)
[2020-04-02] MEDS: Insulin Lispro 100 UNIT/ML INSULN.PEN SC ×4 (01:15→18:23)
[2020-04-02 01:35] LABS: Bedside Glucose 254 mg/dL (70-110)
[2020-04-02] MEDS: Albuterol 2.5 MG/3 ML VIAL.NEB. INHALATION ×2 (01:45→08:06)
--- NOTE | 2020-04-02 01:53 | PCS.PANDOC ---
PANDEMIC DOCUMENTATION INITIATED: Date: 04/01/20 Time: 1899
[2020-04-02] MEDS: Acetaminophen 325 MG Tablet 650 MG PO (06:31)
[2020-04-02 06:55] LABS: Absolute Lymphocyte Count 0.74 X10^3/uL (0.83-4.51); Absolute Neutrophil Count 10.3 X10^3/uL (2.0-7.7); Basophil# 0.01 X10^3/uL; Basophil% 0.1 % (0-1); Hematocrit 29.7 % (37-47); Hemoglobin 9.3 g/dL (12.0-15.0); Lymphocyte # 0.74 X10^3/ul (4.0); Lymphocyte % 6.3 % (19-41); Mean Corp Hgb Conc 31.3 g/dL (32-36); Mean Corpuscular Hgb 27.2 pg (27.0-32.0); Mean Corpuscular Volume 86.8 fL (81-99); Mean Platelet Vol. 11.3 fl (6.2-12.0); Monocyte# 0.67 X10^3/uL; Monocyte% 5.7 % (0-10); NRBC Flagged by Analyzer 0 % (0-5); Neutrophil # 10.31 X10^3/uL (2.7-7.7); Neutrophil % 87.2 % (47-70); Platelet Count 241 K/mm3 (150-450); RBC Distribution Width CV 14.3 % (11.6-14.6); Red Blood Count 3.42 M/mm3 (4.2-5.4); White Blood Count 11.8 K/mm3 (4.4-11.0)
[2020-04-02 07:10] LABS: Bedside Glucose 189 mg/dL (70-110)
[2020-04-02 07:16] LABS: Anion Gap 6 (5-15); BUN 32 mg/dL (7-18); BUN/Creat Ratio 54.9 RATIO (10-20); Calcium,Total 8.3 mg/dL (8.5-10.1); Chloride 106 mmol/L (98-107); Creatinine, Serum 0.58 mg/dL (0.55-1.02); EST Glomerular Filtration Rate 110 mL/min (>60); Est Glom Filt Rate - Afr Amer 133 mL/min (>60); Estimated Creatinine Clearance 41.76 ml/min; Glucose 171 mg/dL (74-106); Potassium 4.2 mmol/L (3.5-5.1); Sodium Level 140 mmol/L (136-145)
[2020-04-02] MEDS: Ibuprofen 400 MG Tablet PO (08:33)
--- NOTE | 2020-04-02 09:05 | NURSING ---
Pharmacy notified of meds on MAY that cannot be crushed-they will change to crushable/liquid form and change PO route to GT on meds.
--- NOTE | 2020-04-02 09:09 | PCM.PROGNOTE ---
Patient Problems: Active and Suspected Problems Aspiration pneumonia (Acute) Subjective: Chief complaint: Follow-up after admission for sepsis secondary to aspiration pneumonia and found to have acute hypoxic respiratory sufficiency. Patient seen and examined. No acute events overnight. Today, she is feeling better but still complaining of mild cough, minimal sputum. She is still requiring oxygen of up to 3 L. She is still having spikes of fever, blood pressure and heart rate are stable, pulse ox is 92% on 3 L. - Physical Exam Vitals/I&O's: Vital Signs Temp Pulse Resp BP Pulse Ox 102.9 F H 87 36 H 106/40 L 92 04/02/20 08:37 04/02/20 08:37 04/02/20 08:37 04/02/20 08:37 04/02/20 08:37 Oxygen Flow Rate (L/min) 3 Oxygen Delivery Method Nasal Cannula Weight: 140 lb 6.951 oz Body Mass Index (BMI) 26.5 Intake and Output for Last 24 Hours 03/31/20 04/01/20 04/02/20 23:59 23:59 23:59 Intake Total 2615.75 / 2615.75 929 / 929 Output Total 200 / 200 Balance 2415.75 / 2415.75 929 / 929 General: Alert, Oriented x3, Cooperative, - - Minimally short of breath. HEENT: Atraumatic, PERRLA, EOMI, Normocephalic Oral: Moist Mucosa, No Gingival or Mucosal Lesions/ Ulcerations Neck: Supple, No JVD, Negative Carotid Bruits, Trachea Midline, Thyroid Normal Size and Texture Lungs: No wheeze, No rales, Diminished, Rhonchi, - - Decreased breath sounds at the bases, more on the right base, scattered rhonchi. Cardiovascular: Regular rate, Regular Rhythm, Normal S1, Normal S2, PMI Normal Abdomen: Bowel Sounds Present, Soft, Non Tender, Non-Distended, No Hepato-splenomegaly, - - PEG tube in place. Extremities: No clubbing, No cyanosis, No edema Skin: No rashes, No breakdown Lymphatic: No Cervical, Supraclavicular, or Inguinal Adenopathy Neurological: Cranial nerves II-XII grossly intact, Motor Exam 5/5 strength throughout Psych/Mental Status: Normal Affect, Appropriate Microbiology Past 72 Hours 04/01/20 01:50 Urine Catheter - Catheter Legionella Antigen - Final 04/01/20 01:50 Urine Catheter - Catheter Streptococcus pneumoniae Antigen (M - Final 04/01/20 01:10 Mucosa - Nose SARS-CoV-2 Antigen (Rapid) - Final Laboratory Results 04/01/20 11:46: POC Glucose 187 H 04/01/20 17:26: POC Glucose 396 H 04/02/20 01:14: POC Glucose 254 H 04/02/20 06:34: POC Glucose 189 H 04/02/20 06:45: WBC 11.8 H, RBC 3.42 L, Hgb 9.3 L, Hct 29.7 L, MCV 86.8, MCH 27.2, MCHC 31.3 L, RDW Std Deviation 45.0 H, RDW Coeff of Jesica 14.3, Plt Count 241, MPV 11.3, Immature Gran % (Auto) 0.700, Neut % (Auto) 87.2 H, Lymph % (Auto) 6.3 L, [place] % (Auto) 5.7, Eos % (Auto) 0.0, Baso % (Auto) 0.1, Absolute Neuts (auto) 10.3 H, Absolute Lymphs (auto) 0.74 L, Nucleated RBC % 0 04/02/20 06:45: Sodium 140, Potassium 4.2, Chloride 106, Carbon Dioxide 28.0, Anion Gap 6, BUN 32 H, Creatinine 0.58, Estim Creat Clear Calc 41.76, Est GFR (MDRD) Af Amer 133, Est GFR (MDRD) Non-Af 110, BUN/Creatinine Ratio 54.9 H, Glucose 171 H, Calcium 8.3 L Current Medications Acetaminophen (Acetaminophen 325 Mg Tablet) 650 mg PO Q6H PRN PRN PRN Reason: Pain Score 1-10/Temp > 100.7 F Last Admin: 04/02/20 06:31 Dose: 650 mg Documented by: Albuterol Sulfate (Albuterol 2.5 Mg/3 Ml Vial.Neb.) 2.5 mg INHALATION Q2H PRN PRN PRN Reason: Shortness of Breath/Wheezing Last Admin: 04/02/20 08:06 Dose: 2.5 mg Documented by: Albuterol/Ipratropium (Ipratropium/Albuterol Sulfate 3 Ml Ampul.Neb) 3 ml INHALATION Q6HWA.RT BLESSING Aspirin (Aspirin E.C. 81 Mg Tablet) 81 mg PO DAILYCM [facility] Last Admin: 04/01/20 10:56 Dose: 81 mg Documented by: Atorvastatin Calcium (Atorvastatin Calcium 10 Mg Tablet) 5 mg PO QHS [facility] Last Admin: 04/02/20 00:41 Dose: 5 mg Documented by: Benztropine Mesylate (Benztropine 2 Mg Tablet) 1 mg PO BID [facility] Last Admin: 04/02/20 00:41 Dose: 1 mg Documented by: Calamine/Phenol (Menthol/Lanolin/Calamine/Znox 113 Gm Tube) 1 applic TOPICAL TID [facility]; Protocol Last Admin: 04/02/20 06:31 Dose: 1 applicatio Documented by: Calcium/Vitamin D (Calcium Carb/Vitamin D 1 Tablet Tablet) [facility] Last Admin: 04/01/20 17:55 Dose: 1 tablet Documented by: Dextrose (Dextrose 50%-Water 25 Gm/50 Ml Disp.Syrin) 0 gm IV X1 PRN; Protocol PRN Reason: Hypoglycemia Enteral Nutritional Formula (Jevity 1.5. 1,000 Ml Bottle) 275 ml GT 4X/DAY [facility] Last Admin: 04/02/20 00:42 Dose: 275 ml Documented by: Gabapentin (Gabapentin 100 Mg Capsule) 100 mg PO TIDCM [facility] Last Admin: 04/01/20 17:54 Dose: 100 mg Documented by: Glucagon (Glucagon 1 Mg/Ml Syringe) 1 mg IM .X1 PRN PRN Reason: Hypoglycemia Guaifenesin (Guaifenesin 10 Ml Udc (200mg/10ml)) 10 ml GT Q6 [facility] Last Admin: 04/02/20 06:31 Dose: 10 ml Documented by: Ampicillin Sodium/Sulbactam (Sodium 3 gm/ Sodium Chloride) 112 mls @ 150 mls/hr IV Q6 [facility] Last Infusion: 04/02/20 07:14 Dose: Infused Documented by: Sodium Chloride () 250 mls @ 15 mls/hr IV .[id number] PRN PRN Reason: Saline Flush Last Infusion: 04/02/20 07:14 Dose: 15 mls/hr Documented by: Sodium Chloride () 250 mls @ 15 mls/hr IV .[id number] PRN PRN Reason: Additional IVPB Infusion Insulin Human Lispro (Insulin Lispro 100 Unit/Ml Insuln.Pen) 0 unit SC Q6 [facility]; Protocol Last Admin: 04/02/20 06:35 Dose: 1 units Documented by: Lisinopril (Lisinopril 40 Mg Tablet) 40 mg PO DAILY [facility] Last Admin: 04/01/20 10:56 Dose: 40 mg Documented by: Melatonin (Melatonin 3 Mg Tablet) 3 mg PO QHS PRN PRN PRN Reason: INSOMNIA Multivitamins (Multivitamins,Therapeutic Tablet) [facility] Olanzapine (Olanzapine 10 Mg Tablet) 10 mg PO QHS [facility] Last Admin: 04/02/20 00:41 Dose: 10 mg Documented by: Ondansetron HCl (Ondansetron 4 Mg/2 Ml Vial) 4 mg IV Q8H PRN PRN PRN Reason: NAUSEA/VOMITING Rivaroxaban (Rivaroxaban 20 Mg Tablet) 20 mg PO DAILY [facility] Last Admin: 04/01/20 11:03 Dose: 20 mg Documented by: Sodium Chloride (0.9% Saline Lock 10 Ml Syringe) 10 - 40 ml IV UD PRN PRN Reason: SALINE FLUSH Last Admin: 04/01/20 17:54 Dose: 10 ml Documented by: Tolterodine Tartrate (Tolterodine Tartrate 2 Mg Cap.Sa) 2 mg PO DAILY [facility] Last Admin: 04/01/20 10:54 Dose: 2 mg Documented by: Medical Necessity - Tobacco Use Smoking Status: Former smoker Assessment/Plan All Active Problems Aspiration pneumonia (Acute) This is a 65 years old female patient presented to the emergency room because of shortness of breath, cough and fever and she was found to have right lower lobe infiltrate attributed to aspiration pneumonia, found to have acute hypoxic respiratory insufficiency. #1 aspiration pneumonia: She is on IV Unasyn. She is still having spikes of fever, blood pressure and heart rate are stable, pulse ox is 94% on 3 L. Pneumococcal and genital ulcer were negative. COVID-19 antigen and PCR was negative. Blood cultures pending. Plan: Continue same treatment, start DuoNeb every 6 hours, continue albuterol as needed,, start IV Zithromax, repeat CBC tomorrow morning, wean off oxygen as tolerated, PT OT evaluation and treatment. #2 acute hypoxic respiratory sufficiency: Secondary to #1. He normally, she does not wear oxygen. Currently, she is on 3 L, plan as above. #3 chronic atrial fibrillation: Heart rate stable, she is not on any medication for rate control, continue Xarelto for anticoagulation. #4 type 2 diabetes mellitus: Blood sugar has been fluctuating, she is on sliding scale and Accu-Cheks, Metformin held. #5 hypertension: Blood pressure stable, continue lisinopril. #6 history of achalasia: Status post PEG tube placement, continue tube feeds. She is n.p.o. #7 chronic anemia: Likely due to anemia of chronic disease. Hemoglobin and hematocrit are stable, no active bleeding. #8 DVT prophylaxis: Continue Xarelto. This note was generated with [employer] dictation software. It may contain incorrect words, spelling, and punctuation that were not noted in checking the note before signing. Inpatient E&M: 40705 Subs Hosp L2
--- NOTE | 2020-04-02 10:10 | CASEMGMT ---
Addendum entered by Madelyn Jay 04/02/20 11:31: SW in to speak with pt. SW introduced self and role at [facility]. Per previous notes, pt's niece Cheryl is caregiver for pt. SW spoke with pt regarding discharge plans. Pt confirms she came from [facility]. SW asked pt if plan was to return, pt states I don't know, well probably. SW asked pt if this worker can call her niece Cheryl and pt gave this worker permission to do so. SW placed a call to pt's niece Cheryl. Cheryl confirms pt came from [facility] and plan is to return. Cheryl states concerns that [facility] never updated her pt was being admitted. SW encouraged pt to call [facility] and relay his concerns. SW did update Cheryl that per ED notes, the ED RN did attempt to call Cheryl to provide update. Cheryl asked for medical update. SARA informed Cheryl that this worker will relay message to RN to call Cheryl with and update. Cheryl states the best number to call is ([phone]). SW to update RN. Plan: Return to [facility] once medically cleared Original Note: Social Work Note Pt is listed as being from [facility]. SARA placed a call to [facility] and spoke with Mer in admissions. Mer states pt was skilled, pt is on bed hold, is able to return when medically ready. SARA faxed updated clinicals with JUDITH paniagua to Mer. Plan: Return to [facility] once medically cleared Madelyn Jay OPENER, FUNERAL ARRANGEMENT DIRECTOR
[2020-04-02] MEDS: Calcium Carb/Vitamin D 1 TABLET Tablet PO (10:20)
[2020-04-02] MEDS: Tolterodine Tartrate 2 MG CAP.SA PO (10:20)
[2020-04-02] MEDS: Gabapentin 100 MG Capsule PO (10:20)
[2020-04-02] MEDS: Lisinopril 40 MG Tablet PO (10:20)
[2020-04-02] MEDS: Rivaroxaban 20 MG Tablet GT (11:20)
[2020-04-02] MEDS: Multivitamin/Minerals/Iron (9 mg/15 ml) Liquid GT (11:20)
[2020-04-02] MEDS: Aspirin 81 MG TAB.CHEW GT (11:27)
[2020-04-02 11:40] LABS: Bedside Glucose 269 mg/dL (70-110)
[2020-04-02] MEDS: Gabapentin 100 MG Capsule GT ×2 (12:43→18:22)
[2020-04-02] MEDS: Acetaminophen 650 MG/20 ML UDC GT ×2 (12:45→22:46)
[2020-04-02] MEDS: Ondansetron 4 MG/2 ML Vial IV (14:41)
--- NOTE | 2020-04-02 14:56 | CASEMGMT ---
Readmission Chart review: Patient was admitted 02/28/2020-03/08/2020 for acute hypoxic respiratory failure secondary to aspiration pneumonia. Patient had pegtube placed and tube feedings and was discharge to [facility]. See GAURAV CM assessment for 02/28/20. Patient returned 04/01/2020 for shortness of breath and fever. Placed on oxygen at 2 lpm. Per H&P patient has inability to expectorate secretions and likely aspiration pneumonia. SW to follow-up with patient and patient to return to [facility] at discharge.
[2020-04-02] MEDS: Calcium Carb/Vitamin D 1 TABLET Tablet GT (18:22)
[2020-04-02 18:46] LABS: Bedside Glucose 200 mg/dL (70-110)
[2020-04-02] MEDS: Ipratropium/Albuterol Sulfate 3 ML AMPUL.NEB INHALATION (19:33)
[2020-04-02] MEDS: OLANZapine 10 MG Tablet GT (22:27)
[2020-04-02] MEDS: Benztropine 2 MG Tablet 1 MG GT (22:27)
[2020-04-02] MEDS: Atorvastatin Calcium 10 MG Tablet 5 MG GT (22:28)
[2020-04-03] VITALS (11 sets, daily range): BP systolic 111–137; BP diastolic 48–66; PULSE 68–82; RESP 18–30; TEMP 36.4–37.1; O2SAT 88–98
[2020-04-03] MEDS: Insulin Lispro 100 UNIT/ML INSULN.PEN SC ×4 (00:39→23:48)
[2020-04-03 00:46] LABS: Bedside Glucose 231 mg/dL (70-110)
[2020-04-03] MEDS: Menthol/Lanolin/Calamine/Znox 113 GM Tube 1 APPLIC TOPICAL ×3 (06:12→21:01)
[2020-04-03] MEDS: guaiFENesin 10 ML UDC (200MG/10ML) GT ×4 (06:31→23:48)
[2020-04-03 06:50] LABS: Bedside Glucose 117 mg/dL (70-110)
[2020-04-03] MEDS: Ipratropium/Albuterol Sulfate 3 ML AMPUL.NEB INHALATION ×2 (06:56→19:19)
[2020-04-03 07:09] LABS: Absolute Lymphocyte Count 0.83 X10^3/uL (0.83-4.51); Basophil# 0.03 X10^3/uL; Basophil% 0.5 % (0-1); Eosinophil# 0.02 X10^3/uL; Eosinophils% 0.3 % (0-5); Hemoglobin 10.1 g/dL (12.0-15.0); Lymphocyte # 0.83 X10^3/ul (4.0); Lymphocyte % 13.1 % (19-41); Mean Corp Hgb Conc 29.7 g/dL (32-36); Mean Corpuscular Hgb 26.7 pg (27.0-32.0); Mean Corpuscular Volume 89.9 fL (81-99); Mean Platelet Vol. 11.5 fl (6.2-12.0); Monocyte# 0.41 X10^3/uL; Monocyte% 6.4 % (0-10); NRBC Flagged by Analyzer 0 % (0-5); Neutrophil % 78.6 % (47-70); Platelet Count 236 K/mm3 (150-450); RBC Distribution Width CV 14.1 % (11.6-14.6); RBC Distribution Width SD 46.3 fl (35.1-43.9); Red Blood Count 3.78 M/mm3 (4.2-5.4); White Blood Count 6.4 K/mm3 (4.4-11.0)
[2020-04-03] MEDS: Acetaminophen 650 MG/20 ML UDC GT ×2 (09:23→17:11)
[2020-04-03] MEDS: Calcium Carb/Vitamin D 1 TABLET Tablet GT ×2 (09:24→17:11)
[2020-04-03] MEDS: Tolterodine Tartrate 2 MG CAP.SA PO (09:24)
[2020-04-03] MEDS: Benztropine 2 MG Tablet 1 MG GT ×2 (09:24→21:01)
[2020-04-03] MEDS: Gabapentin 100 MG Capsule GT ×3 (09:24→17:11)
[2020-04-03] MEDS: Rivaroxaban 20 MG Tablet GT (09:24)
[2020-04-03] MEDS: Aspirin 81 MG TAB.CHEW GT (09:24)
[2020-04-03] MEDS: Lisinopril 40 MG Tablet GT (09:24)
[2020-04-03] MEDS: Multivitamin/Minerals/Iron (9 mg/15 ml) Liquid GT (09:24)
[2020-04-03] MEDS: Jevity 1.5. 1,000 ML Bottle 275 ML GT ×4 (09:25→21:02)
--- NOTE | 2020-04-03 09:41 | PN_ITS ---
Patient Problems: Active and Suspected Problems Aspiration pneumonia (Acute) Subjective: Chief complaint: Follow-up after admission for sepsis secondary to aspiration pneumonia and found to have acute hypoxic respiratory failure. Patient seen and examined. No acute events overnight. Today, she is feeling better, shortness of breath has been improving, still having mild cough. She remains on 3 L of oxygen, pulse ox improved. She has been afebrile, other vital signs are stable. - Physical Exam Vitals/I&O's: Vital Signs Temp Pulse Resp BP Pulse Ox 97.8 F 70 20 H 129/63 H 98 04/03/20 03:15 04/03/20 06:56 04/03/20 06:56 04/03/20 03:15 04/03/20 06:56 Oxygen Flow Rate (L/min) 3 Oxygen Delivery Method Nasal Cannula Weight: 140 lb 6.951 oz Body Mass Index (BMI) 26.5 Intake and Output for Last 24 Hours 04/01/20 04/02/20 04/03/20 23:59 23:59 23:59 Intake Total 2615.75 / 2615.75 3180.25 / 3180.25 368.5 / 368.5 Output Total 200 / 200 300 / 300 Balance 2415.75 / 2415.75 3180.25 / 3180.25 68.5 / 68.5 General: Alert, Cooperative, No apparent distress, Well nourished HEENT: Atraumatic, PERRLA, EOMI, Normocephalic Oral: Moist Mucosa, No Gingival or Mucosal Lesions/ Ulcerations Neck: Supple, No JVD, Negative Carotid Bruits, Trachea Midline, Thyroid Normal Size and Texture Lungs: No wheeze, No rales, Diminished, Rhonchi, - - Decreased breath sounds on the right base, scattered rhonchi. Cardiovascular: Regular rate, Regular Rhythm, Normal S1, Normal S2 Abdomen: Bowel Sounds Present, Soft, Non Tender, Non-Distended, No Hepato- splenomegaly, - - PEG tube in place. Extremities: No clubbing, No cyanosis, No edema Skin: No rashes, No breakdown Lymphatic: No Cervical, Supraclavicular, or Inguinal Adenopathy Neurological: Cranial nerves II-XII grossly intact, Neuro grossly intact Microbiology Past 72 Hours 04/01/20 01:15 Blood Culture (Wb) - Left Forearm Blood Culture - Preliminary No growth in 48 hours. 04/01/20 00:25 Blood Culture (Wb) - Right Forearm Blood Culture - Preliminary No growth in 48 hours. 04/01/20 01:50 Urine Catheter - Catheter Legionella Antigen - Final 04/01/20 01:50 Urine Catheter - Catheter Streptococcus pneumoniae Antigen (M - Final 04/01/20 01:10 Mucosa - Nose SARS-CoV-2 Antigen (Rapid) - Final Laboratory Results 04/02/20 11:25: POC Glucose 269 H 04/02/20 18:21: POC Glucose 200 H 04/03/20 00:38: POC Glucose 231 H 04/03/20 06:25: POC Glucose 117 H 04/03/20 06:40: WBC 6.4, RBC 3.78 L, Hgb 10.1 L, Hct 34.0 L, MCV 89.9, MCH 26.7 L, MCHC 29.7 L D, RDW Std Deviation 46.3 H, RDW Coeff of Jesica 14.1, Plt Count 236, MPV 11.5, Immature Gran % (Auto) 1.100 H, Neut % (Auto) 78.6 H, Lymph % (Auto) 13.1 L, Gladwin % (Auto) 6.4, Eos % (Auto) 0.3, Baso % (Auto) 0.5, Absolute Neuts (auto) 5.0, Absolute Lymphs (auto) 0.83, Nucleated RBC % 0 Current Medications Acetaminophen (Acetaminophen 650 Mg/20 Ml Udc) 650 mg GT Q6H PRN PRN PRN Reason: Pain Score 1-10/Temp > 100.7 F Last Admin: 04/03/20 09:23 Dose: 650 mg Documented by: Albuterol Sulfate (Albuterol 2.5 Mg/3 Ml Vial.Neb.) 2.5 mg INHALATION Q2H PRN PRN PRN Reason: Shortness of Breath/Wheezing Last Admin: 04/02/20 08:06 Dose: 2.5 mg Documented by: Albuterol/Ipratropium (Ipratropium/Albuterol Sulfate 3 Ml Ampul.Neb) 3 ml INHALATION Q6HWA.RT BLESSING Last Admin: 04/03/20 06:56 Dose: 3 ml Documented by: Aspirin (Aspirin 81 Mg Tab.Chew) 81 mg GT DAILYCM [facility] Last Admin: 04/03/20 09:24 Dose: 81 mg Documented by: Atorvastatin Calcium (Atorvastatin Calcium 10 Mg Tablet) 5 mg GT QHS [facility] Last Admin: 04/02/20 22:28 Dose: 5 mg Documented by: Benztropine Mesylate (Benztropine 2 Mg Tablet) 1 mg GT BID [facility] Last Admin: 04/03/20 09:24 Dose: 1 mg Documented by: Calamine/Phenol (Menthol/Lanolin/Calamine/Znox 113 Gm Tube) 1 applic TOPICAL TID [facility]; Protocol Last Admin: 04/03/20 06:12 Dose: 1 applicatio Documented by: Calcium/Vitamin D (Calcium Carb/Vitamin D 1 Tablet Tablet) 1 tablet GT BIDCM [facility] Last Admin: 04/03/20 09:24 Dose: 1 tablet Documented by: Dextrose (Dextrose 50%-Water 25 Gm/50 Ml Disp.Syrin) 0 gm IV X1 PRN; Protocol PRN Reason: Hypoglycemia Enteral Nutritional Formula (Jevity 1.5. 1,000 Ml Bottle) 275 ml GT 4X/DAY [facility] Last Admin: 04/03/20 09:25 Dose: 275 ml Documented by: Gabapentin (Gabapentin 100 Mg Capsule) 100 mg GT TIDCM [facility] Last Admin: 04/03/20 09:24 Dose: 100 mg Documented by: Glucagon (Glucagon 1 Mg/Ml Syringe) 1 mg IM .X1 PRN PRN Reason: Hypoglycemia Guaifenesin (Guaifenesin 10 Ml Udc (200mg/10ml)) 10 ml GT Q6 [facility] Last Admin: 04/03/20 06:31 Dose: 10 ml Documented by: Ampicillin Sodium/Sulbactam (Sodium 3 gm/ Sodium Chloride) 112 mls @ 150 mls/hr IV Q6 [facility] Last Infusion: 04/03/20 06:57 Dose: Infused Documented by: Sodium Chloride () 250 mls @ 15 mls/hr IV .[id number] PRN PRN Reason: Saline Flush Last Infusion: 04/03/20 09:14 Dose: Infused Documented by: Sodium Chloride () 250 mls @ 15 mls/hr IV .[id number] PRN PRN Reason: Additional IVPB Infusion Azithromycin 500 mg/ Dextrose 255 mls @ 250 mls/hr IV Q24 [facility] Last Admin: 04/03/20 09:14 Dose: 250 mls/hr Documented by: Insulin Human Lispro (Insulin Lispro 100 Unit/Ml Insuln.Pen) 0 unit SC Q6 [facility]; Protocol Last Admin: 04/03/20 06:27 Dose: Not Given Documented by: Lisinopril (Lisinopril 40 Mg Tablet) 40 mg GT DAILY [facility] Last Admin: 04/03/20 09:24 Dose: 40 mg Documented by: Melatonin (Melatonin 3 Mg Tablet) 3 mg GT QHS PRN PRN PRN Reason: INSOMNIA Olanzapine (Olanzapine 10 Mg Tablet) 10 mg GT QHS [facility] Last Admin: 04/02/20 22:27 Dose: 10 mg Documented by: Ondansetron HCl (Ondansetron 4 Mg/2 Ml Vial) 4 mg IV Q8H PRN PRN PRN Reason: NAUSEA/VOMITING Last Admin: 04/02/20 14:41 Dose: 4 mg Documented by: Rivaroxaban (Rivaroxaban 20 Mg Tablet) 20 mg GT DAILY [facility] Last Admin: 04/03/20 09:24 Dose: 20 mg Documented by: Sodium Chloride (0.9% Saline Lock 10 Ml Syringe) 10 - 40 ml IV UD PRN PRN Reason: SALINE FLUSH Last Admin: 04/01/20 17:54 Dose: 10 ml Documented by: Tolterodine Tartrate (Tolterodine Tartrate 2 Mg Cap.Sa) 2 mg PO DAILY [facility] Last Admin: 04/03/20 09:24 Dose: 2 mg Documented by: Medical Necessity - Tobacco Use Smoking Status: Former smoker Assessment/Plan All Active Problems Aspiration pneumonia (Acute) This is a 65 years old female patient presented to the emergency room because of shortness of breath, cough and fever and she was found to have right lower lobe infiltrate attributed to aspiration pneumonia, found to have acute hypoxic respiratory insufficiency. #1 aspiration pneumonia: Remained on IV Unasyn and IV Zithromax. She has been afebrile overnight, WBC is back to normal. She remains on 3 L of oxygen, no shortness of breath. Pneumococcal and genital ulcer were negative. COVID-19 antigen and PCR was negative. Blood cultures showed no growth in 48 hours. Plan: Wean off oxygen as stated, anticipate discharge to SNF tomorrow.. #2 acute hypoxic respiratory failure: Secondary to #1. He normally, she does not wear oxygen. Today, she remains on 3 L of oxygen although her oxygen pulse oximetry improved. Plan as above, wean off oxygen as tolerated, patient may need to go to SNF on oxygen. #3 chronic atrial fibrillation: Heart rate stable, she is not on any medication for rate control, continue Xarelto for anticoagulation. #4 type 2 diabetes mellitus: Blood sugar under better control, she is on sliding scale and Accu-Cheks, Metformin held. #5 hypertension: Blood pressure stable, continue lisinopril. #6 history of achalasia: Status post PEG tube placement, continue tube feeds. She is n.p.o. #7 chronic anemia: Likely due to anemia of chronic disease. Hemoglobin and hematocrit are stable, no active bleeding. #8 DVT prophylaxis: Continue Xarelto. This note was generated with [employer] dictation software. It may contain incorrect words, spelling, and punctuation that were not noted in checking the note before signing. Inpatient E&M: 05499 Subs Hosp L2
--- NOTE | 2020-04-03 10:48 | CASEMGMT ---
Addendum entered by Madelyn Jay 04/03/20 12:46: SARA faxed updated clinicals to Mer at [facility], SARA wrote on fax coversheet pt is not ready for discharge today. Original Note: Social Work Note Pt is not medically ready for discharge today, likely tomorrow. SARA completed Palliative Care Screening tool, pt scored 3 (Observe, reconsider). Plan: Return to [facility] once medically cleared Madelyn Jay HAND BINDER CUTTER, ASSEMBLER HANDBAGS
[2020-04-03 11:51] LABS: Bedside Glucose 221 mg/dL (70-110)
[2020-04-03] MEDS: 0.9% Saline Lock 10 ML Syringe IV ×2 (12:25→23:48)
[2020-04-03] MEDS: Ondansetron 4 MG/2 ML Vial IV (12:25)
[2020-04-03 17:45] LABS: Bedside Glucose 169 mg/dL (70-110)
[2020-04-03] MEDS: Atorvastatin Calcium 10 MG Tablet 5 MG GT (21:01)
[2020-04-03] MEDS: OLANZapine 10 MG Tablet GT (21:01)
[2020-04-04 00:06] LABS: Bedside Glucose 246 mg/dL (70-110)
[2020-04-04] MEDS: guaiFENesin 10 ML UDC (200MG/10ML) GT ×2 (05:40→11:48)
[2020-04-04] MEDS: Menthol/Lanolin/Calamine/Znox 113 GM Tube 1 APPLIC TOPICAL (05:40)
[2020-04-04 06:41] LABS: Bedside Glucose 112 mg/dL (70-110)
[2020-04-04 07:23] VITALS: PULSE 81; RESP 20; O2SAT 94
[2020-04-04] MEDS: Ipratropium/Albuterol Sulfate 3 ML AMPUL.NEB INHALATION (07:24)
[2020-04-04 07:49] VITALS: BP 121/50; PULSE 82; RESP 18; TEMP 37.1; O2SAT 93
[2020-04-04] MEDS: Calcium Carb/Vitamin D 1 TABLET Tablet GT (07:51)
[2020-04-04] MEDS: Aspirin 81 MG TAB.CHEW GT (07:51)
[2020-04-04] MEDS: Gabapentin 100 MG Capsule GT ×2 (07:51→11:48)
[2020-04-04] MEDS: Multivitamin/Minerals/Iron (9 mg/15 ml) Liquid GT (07:51)
[2020-04-04 08:05] VITALS: O2SAT 93
[2020-04-04] MEDS: Rivaroxaban 20 MG Tablet GT (09:31)
[2020-04-04] MEDS: Benztropine 2 MG Tablet 1 MG GT (09:31)
[2020-04-04] MEDS: Tolterodine Tartrate 2 MG CAP.SA PO (09:32)
[2020-04-04] MEDS: Jevity 1.5. 1,000 ML Bottle 275 ML GT (09:32)
[2020-04-04] MEDS: Lisinopril 40 MG Tablet GT (09:45)
--- NOTE | 2020-04-04 09:46 | TREXTCAR_ITS ---
- Diet 04/01/20 07:22 Diet: Nothing Per Oral - Routine Orders/Code Status O2 Liters per Minute: 2 O2 Frequency: Continuous Keep PO Greater than or Equal to (%): 92 Code Status: Full Code - Wound(s) rt buttock Wound Type: Abrasion lt buttock Wound Type: Pressure Injury - Suggestions for Active Care Change Position every (hours): 3 Hours to sit in a chair: 2 Times a day to sit in chair: 3 - Therapies Weight Bearing: Weight bearing as tolerated Physical Therapy: Eval and Treat Occupational Therapy: Eval and Treat Speech Therapy: Eval and Treat - Allergies/Procedures Done in Hospital Allergies/Adverse Reactions: Allergies No Known Allergies Allergy (Verified 04/01/20 00:12) - Type of Care/Length of Stay Estimated LOS: Convalescent Care Less Than 30 days Type of Care Needed: Skilled Rehab Potential: Fair Prognosis: Fair - Additional Orders/Day of Discharge Additional Orders: 1-use oxygen at 2 L to maintain pulse ox around 92%, wean off as tolerated. 2-tube feeds with Jevity 1.5, 275ml GT 4 times a day. Follow fiberglass boat assembly supervisor recommendations. H&P will serve as current which was dated: 04/01/20 Day of Discharge: 04/04/20 - Dietary and Speech Recommendations Dietitian Recommendations/Changes: Continue 275ml Jevity 1.5 Hermes 4 times per day; will adjust water flush to 120 ml before and after each feeding. TF and water flushes will provide 1650 kcal, 70 gm protein and 1796 ml free water per day. Maintain NPO status. Weigh daily. - Follow Up Care Primary Care Physician: Jose Brown MD [Primary Care Provider] - Please follow up with your Primary Care Physician in: 1-2 weeks.
--- NOTE | 2020-04-04 11:04 | PHA.DC.MR ---
Pharmacy Service has performed discharge medication reconciliation for this patient. The patient's discharge medication list was reviewed for discrepancies and discrepancies were resolved. Home Medications Lisinopril 40 mg GT DAILY 12/01/13 Olanzapine 10 mg GT QHS 12/01/13 Aspirin [Aspir-Low] 81 mg GT DAILY 05/18/19 Benztropine [Cogentin] 1 mg GT BID 05/18/19 Calcium Carbonate/Vitamin D3 [Calcium 600 + Vit D Tablet] 1 ea GT BID 05/18/19 Gabapentin [Neurontin] 100 mg GT TIDCM 05/18/19 Metformin HCl 500 mg GT BID 05/18/19 Oxybutynin [Ditropan] 10 mg GT DAILY 05/18/19 Simvastatin 10 mg GT QHS 05/18/19 Multivitamin [Daily Griffin] 1 ea GT DAILY 02/05/20 Rivaroxaban [Xarelto] 20 mg PO DAILY #30 tab 02/06/20 Albuterol Sulfate [Albuterol Sulfate HFA] 2 puff IH 4X/DAY 04/01/20 Bisacodyl 10 mg RC DAILY PRN PRN 04/01/20 Budesonide/Formoterol Fumarate [Symbicort 80-4.5 Mcg Inhaler] 2 puff IH BID 04/01/20 Guaifenesin [Robitussin] 10 ml PO Q4H PRN PRN 04/01/20 Health Maintenance Flush 125 ml GT ACHS 04/01/20 Lactose-Reduced Food/Fiber [Jevity 1.5 Hermes Liquid] 250 ml GT [facility] 04/01/20 Mag Hydrox/Al Hydrox/Simeth [Mylanta II] 30 ml GT Q4H PRN PRN 04/01/20 Magnesium Hydroxide [Milk Of Magnesia] 30 ml GT DAILY PRN PRN 04/01/20 Amox/Clavulanate Tablet [Augmentin Tablet] 875 mg GT Q12H #12 tab 04/04/20
--- NOTE | 2020-04-04 11:18 | CASEMGMT ---
Addendum entered by Madelyn Jay 04/04/20 11:24: SW updated pt on discharge and transportation time. Original Note: Social Work Note Pt is medically ready for discharge back to [facility] today. SARA faxed discharge paperwork to Mer at [facility] including transfer to extended care facility, signed medication list, any scripts, COVID screening tool. Original in SNF folder and copy on pt's chart. SARA spoke with RN, pt can transport via cot, requests afternoon discharge. SARA accessed trip assist and arranged transportation via cot for 1:30pm. Transportation form completed and placed on SNF folder and copy on pt's chart. SARA placed a call to pt's niece Cheryl and updated her on discharge and transportation time. SARA placed a call to Mer at [facility] and left message informing her of discharge and transportation time. SARA let Mer know that if pt keeps having aspiration pneumonia, Palliative Care may be a good idea to discuss with pt and caregivers. SARA updated RN on transportation time. Plan: Return to [facility] with [facility] transporting pt via cot at 1:30pm. Madelyn Jay COTTON DISPATCHER, CLASSIFIED AD TAKER
--- NOTE | 2020-04-04 11:23 | PCM.DC.SUM ---
Discharge Date and Diagnosis - Problem List Patient Problems: Active and Suspected Problems Aspiration pneumonia (Acute) Date of Admission: 04/01/20 Date of Discharge: 04/04/20 - Primary Discharge Diagnosis Acute Problems: Active Problems #1 aspiration pneumonia (Acute). #2 acute hypoxic respiratory failure discharged on oxygen at 2 L. - Secondary Discharge Diagnosis Chronic Problems: Chronic Problems Hypertension (Chronic) Hyperlipidemia (Chronic) Chronic insomnia (Chronic) Diabetes mellitus, type II (Chronic) Achalasia (Chronic) Hospital Course and Treatment Imaging Results: Clinical Impression(s) from Imaging Studies Chest X-Ray 04/01/20 00:40 IMPRESSION: Right basilar infiltrate versus atelectasis, clinical correlation recommended. Electronically Signed: Ximena Quiroga MD at 1:44 EST , Service support , Operations: None Procedures: None Summary of Care Provided: Patient seen and examined on the day of discharge and appeared to be stable to be discharged to [facility] facility. Her symptoms has been improving every day and she is down to 2 L of oxygen today. She has been afebrile for more than 24 hours. Other vital signs are stable. The patient is a 65 year old F presented to the emergency room because of shortness of breath, cough and fever and she was found to have right lower lobe infiltrate consistent with aspiration pneumonia and complicated by acute hypoxic respiratory failure. COVID-19 antigen and COVID-19 PCR were done and both were negative. Patient was treated with IV Unasyn and IV Zithromax. Initially, patient did have spikes of fever which resolved after IV antibiotics. She had PEG tube placement secondary to dysphagia and she continued on tube feeds. Patient needed oxygen of up to 3 L and with IV antibiotic therapy, her symptoms improved and she was able to come down to 2 L. With above-mentioned treatment, patient remained afebrile for more than 24 hours, leukocytosis resolved with as well as her symptoms. She remained stable on 2 L of oxygen. Blood culture showed no growth in 48 hours. Pneumococcal and Legionella antigen were negative. Patient discharged to [facility] facility in a stable medical condition, discharged on oxygen at 2 L, instructed to wean off oxygen as tolerated, discharged on Augmentin 875 mg GT. twice daily for 6 days of treatment to complete total of 10 days of treatment, continued on her previous home medications without any changes, recommended follow-up with PCP in 1 to 2 weeks. Patient Problems: Active and Suspected Problems Aspiration pneumonia (Acute) - Physical Exam Vitals/I&O's: Vital Signs Temp Pulse Resp BP Pulse Ox 98.7 F 82 18 121/50 H 93 04/04/20 07:49 04/04/20 07:49 04/04/20 07:49 04/04/20 07:49 04/04/20 08:05 Oxygen Flow Rate (L/min) 2 Oxygen Delivery Method Nasal Cannula Weight: 140 lb 6.951 oz Body Mass Index (BMI) 26.5 Intake and Output for Last 24 Hours 04/02/20 04/03/20 04/04/20 23:59 23:59 23:59 Intake Total 3180.25 / 3180.25 2985.5 / 2985.5 731 / 731 Output Total 900 / 900 200 / 200 Balance 3180.25 / 3180.25 2085.5 / 2085.5 531 / 531 General: Alert, Oriented x3, Cooperative, No apparent distress HEENT: Atraumatic, PERRLA, EOMI, Normocephalic Oral: Moist Mucosa, No Gingival or Mucosal Lesions/ Ulcerations Neck: Supple, No JVD, Negative Carotid Bruits, Trachea Midline, Thyroid Normal Size and Texture Lungs: No rhonchi, No wheeze, No rales, Diminished, - - Decreased breath sounds at the right base, otherwise clear. Cardiovascular: Regular rate, Regular Rhythm, Normal S1, Normal S2 Abdomen: Bowel Sounds Present, Soft, Non Tender, Non-Distended, No Hepato-splenomegaly, - - PEG tube in place. Extremities: No clubbing, No cyanosis, No edema Skin: No rashes, No breakdown Lymphatic: No Cervical, Supraclavicular, or Inguinal Adenopathy Neurological: Cranial nerves II-XII grossly intact, Neuro grossly intact Psych/Mental Status: Normal Affect, Appropriate Microbiology Past 72 Hours 04/01/20 01:15 Blood Culture (Wb) - Left Forearm Blood Culture - Preliminary No growth in 48 hours. 04/01/20 00:25 Blood Culture (Wb) - Right Forearm Blood Culture - Preliminary No growth in 48 hours. 04/01/20 01:50 Urine Catheter - Catheter Legionella Antigen - Final 04/01/20 01:50 Urine Catheter - Catheter Streptococcus pneumoniae Antigen (M - Final Laboratory Results 04/03/20 11:32: POC Glucose 221 H 04/03/20 17:06: POC Glucose 169 H 04/03/20 23:47: POC Glucose 246 H 04/04/20 05:39: POC Glucose 112 H Current Medications Acetaminophen (Acetaminophen 650 Mg/20 Ml Udc) 650 mg GT Q6H PRN PRN PRN Reason: Pain Score 1-10/Temp > 100.7 F Last Admin: 04/03/20 17:11 Dose: 650 mg Documented by: Albuterol Sulfate (Albuterol 2.5 Mg/3 Ml Vial.Neb.) 2.5 mg INHALATION Q2H PRN PRN PRN Reason: Shortness of Breath/Wheezing Last Admin: 04/02/20 08:06 Dose: 2.5 mg Documented by: Albuterol/Ipratropium (Ipratropium/Albuterol Sulfate 3 Ml Ampul.Neb) 3 ml INHALATION Q6HWA.RT [facility] Last Admin: 04/04/20 07:24 Dose: 3 ml Documented by: Aspirin (Aspirin 81 Mg Tab.Chew) 81 mg GT DAILYCOX MONETT Last Admin: 04/04/20 07:51 Dose: 81 mg Documented by: Atorvastatin Calcium (Atorvastatin Calcium 10 Mg Tablet) 5 mg GT QHS [facility] Last Admin: 04/03/20 21:01 Dose: 5 mg Documented by: Benztropine Mesylate (Benztropine 2 Mg Tablet) 1 mg GT BID [facility] Last Admin: 04/04/20 09:31 Dose: 1 mg Documented by: Calamine/Phenol (Menthol/Lanolin/Calamine/Znox 113 Gm Tube) 1 applic TOPICAL TID [facility]; Protocol Last Admin: 04/04/20 05:40 Dose: 1 applicatio Documented by: Calcium/Vitamin D (Calcium Carb/Vitamin D 1 Tablet Tablet) 1 tablet GT BIDCOX MONETT Last Admin: 04/04/20 07:51 Dose: 1 tablet Documented by: Dextrose (Dextrose 50%-Water 25 Gm/50 Ml Disp.Syrin) 0 gm IV X1 PRN; Protocol PRN Reason: Hypoglycemia Enteral Nutritional Formula (Jevity 1.5. 1,000 Ml Bottle) 275 ml GT 4X/DAY [facility] Last Admin: 04/04/20 09:32 Dose: 275 ml Documented by: Gabapentin (Gabapentin 100 Mg Capsule) 100 mg GT TIDCM [facility] Last Admin: 04/04/20 07:51 Dose: 100 mg Documented by: Glucagon (Glucagon 1 Mg/Ml Syringe) 1 mg IM .X1 PRN PRN Reason: Hypoglycemia Guaifenesin (Guaifenesin 10 Ml Udc (200mg/10ml)) 10 ml GT Q6 [facility] Last Admin: 04/04/20 05:40 Dose: 10 ml Documented by: Ampicillin Sodium/Sulbactam (Sodium 3 gm/ Sodium Chloride) 112 mls @ 150 mls/hr IV Q6 [facility] Last Infusion: 04/04/20 06:25 Dose: Infused Documented by: Sodium Chloride () 250 mls @ 15 mls/hr IV .[id number] PRN PRN Reason: Saline Flush Last Infusion: 04/04/20 06:25 Dose: 15 mls/hr Documented by: Sodium Chloride () 250 mls @ 15 mls/hr IV .[id number] PRN PRN Reason: Additional IVPB Infusion Azithromycin 500 mg/ Dextrose 255 mls @ 250 mls/hr IV Q24 [facility] Last Admin: 04/04/20 09:32 Dose: 250 mls/hr Documented by: Insulin Human Lispro (Insulin Lispro 100 Unit/Ml Insuln.Pen) 0 unit SC Q6 [facility]; Protocol Last Admin: 04/04/20 05:40 Dose: Not Given Documented by: Lisinopril (Lisinopril 40 Mg Tablet) 40 mg GT DAILY [facility] Last Admin: 04/04/20 09:45 Dose: 40 mg Documented by: Melatonin (Melatonin 3 Mg Tablet) 3 mg GT QHS PRN PRN PRN Reason: INSOMNIA Olanzapine (Olanzapine 10 Mg Tablet) 10 mg GT QHS [facility] Last Admin: 04/03/20 21:01 Dose: 10 mg Documented by: Ondansetron HCl (Ondansetron 4 Mg/2 Ml Vial) 4 mg IV Q8H PRN PRN PRN Reason: NAUSEA/VOMITING Last Admin: 04/03/20 12:25 Dose: 4 mg Documented by: Rivaroxaban (Rivaroxaban 20 Mg Tablet) 20 mg GT DAILY [facility] Last Admin: 04/04/20 09:31 Dose: 20 mg Documented by: Sodium Chloride (0.9% Saline Lock 10 Ml Syringe) 10 - 40 ml IV UD PRN PRN Reason: SALINE FLUSH Last Admin: 04/03/20 23:48 Dose: 20 ml Documented by: Tolterodine Tartrate (Tolterodine Tartrate 2 Mg Cap.Sa) 2 mg PO DAILY [facility] Last Admin: 04/04/20 09:32 Dose: 2 mg Documented by: Home Medications: Medications to take at Discharge Lisinopril 40 mg GT DAILY 12/01/13 Olanzapine 10 mg GT QHS 12/01/13 Aspirin [Aspir-Low] 81 mg GT DAILY 05/18/19 Benztropine [Cogentin] 1 mg GT BID 05/18/19 Calcium Carbonate/Vitamin D3 [Calcium 600 + Vit D Tablet] 1 ea GT BID 05/18/19 Gabapentin [Neurontin] 100 mg GT TIDCM 05/18/19 Metformin HCl 500 mg GT BID 05/18/19 Oxybutynin [Ditropan] 10 mg GT DAILY 05/18/19 Simvastatin 10 mg GT QHS 05/18/19 Multivitamin [Daily Griffin] 1 ea GT DAILY 02/05/20 Rivaroxaban [Xarelto] 20 mg PO DAILY #30 tab 02/06/20 Albuterol Sulfate [Albuterol Sulfate HFA] 2 puff IH 4X/DAY 04/01/20 Bisacodyl 10 mg RC DAILY PRN PRN 04/01/20 Budesonide/Formoterol Fumarate [Symbicort 80-4.5 Mcg Inhaler] 2 puff IH BID 04/01/20 Guaifenesin [Robitussin] 10 ml PO Q4H PRN PRN 04/01/20 Health Maintenance Flush 125 ml GT ACHS 04/01/20 Lactose-Reduced Food/Fiber [Jevity 1.5 Hermes Liquid] 250 ml GT ACHS 04/01/20 Mag Hydrox/Al Hydrox/Simeth [Mylanta II] 30 ml GT Q4H PRN PRN 04/01/20 Magnesium Hydroxide [Milk Of Magnesia] 30 ml GT DAILY PRN PRN 04/01/20 Amox/Clavulanate Tablet [Augmentin Tablet] 875 mg GT Q12H #12 tab 04/04/20 Following Prescriptions Were Given to Patient: Amox/Clavulanate Tablet [Augmentin Tablet] 875 mg GT Q12H #12 tab Prescription Printed Primary Care Physician: Jose Brown MD [Primary Care Provider] - Please follow up with your Primary Care Physician in: 1-2 weeks. Disposition: Alf facility Minutes spent on discharge:: 28 Patient Condition:: Stable Medical Necessity - Tobacco Use Smoking Status: Former smoker Meaningful Use Info Meaningful Use Diagnoses (Choose all that apply): None applicable Inpatient E&M: 68802 Disch Hosp
[2020-04-04] MEDS: Insulin Lispro 100 UNIT/ML INSULN.PEN SC (11:48)
[2020-04-04 12:21] LABS: Bedside Glucose 188 mg/dL (70-110)
--- NOTE | 2020-04-04 13:11 | MDS.RN ---
report called to Shae at [facility]
--- NOTE | 2020-04-04 13:13 | NURSING ---
family updated on dc
[2020-04-04 13:15] VITALS: BP 126/59; PULSE 81; RESP 18; TEMP 36.8; O2SAT 95
--- NOTE | 2020-04-04 13:43 | NURSING ---
verbal report given to ambulance transporter
== END 2020-04-04 13:49 | disposition skilled nursing facility (03) | DRG 137 ==
LOC: ED 00:54 → MS3 06:02
PROVIDERS: Internal Medicine; Admitting Provider Hospitalist; Emergency Provider Emergency Medicine; PCP Internal Medicine; Visit Provider Hospitalist
DX: J69.0 Pneumonitis due to inhalation of food and vomit (principal); J96.01 Acute respiratory failure with hypoxia; I10 Essential (primary) hypertension; E78.5 Hyperlipidemia, unspecified; Z79.84 Long term (current) use of oral hypoglycemic drugs; Z87.891 Personal history of nicotine dependence; Z93.1 Gastrostomy status; K22.0 Achalasia of cardia; E11.65 Type 2 diabetes mellitus with hyperglycemia; Z79.02 Long term (current) use of antithrombotics/antiplatelets; I48.20 Chronic atrial fibrillation, unspecified; D63.8 Anemia in other chronic diseases classified elsewhere; Z86.74 Personal history of sudden cardiac arrest
CPT/HCPCS: 36415; 71045; 80048; 80053; 81001; 82962; 83605; 84484; 85025; 87040; 87426; 87449; 87635; 93005; 94640; 94667; 94668; 97110; 97162; 97166; 97530; 97802; 99285; J7030; J7050; A4216; J0295; J2405; U0002

== ENCOUNTER 2020-06-06 18:32 | Emergency (ER) | payer MEDICAID, SELFPAY ==
[2020-04-01 12:33] VITALS: BMI 26.5
[2020-06-06 18:33] VITALS: BP 142/76; PULSE 99; RESP 48; TEMP 37.4; O2SAT 94; BMI 24.3
--- NOTE | 2020-06-06 18:42 | EKG12_ITS ---
Test Reason : DYSRHYTHMIA Blood Pressure : / mmHG Vent. Rate : 098 BPM Atrial Rate : 098 BPM P-R Int : 132 ms QRS Dur : 084 ms QT Int : 366 ms P-R-T Axes : 059 039 028 degrees QTc Int : 467 ms Normal sinus rhythm Normal ECG Confirmed by EILEEN RAO, VALDO ([id number]), acting teacher JOSE GEORGE ([id number]) on 06/11/2020 1:44:57 PM Referred By: MICHAEL Confirmed By:VALDO ARELLANO MD
--- NOTE | 2020-06-06 18:42 | CT_ITS ---
EXAMINATION : Head CT w/out contrast HISTORY : Altered mental status COMPARISON : None. TECHNIQUE : Multiple contiguous axial images were obtained from the skull base to the vertex without intravenous contrast. A radiation dose optimization technique was used for this scan. FINDINGS : There is no evidence for acute intracranial hemorrhage, mass effect, or midline shift. There is no extra-axial fluid collection. There are periventricular white matter changes consistent with chronic microvascular ischemic disease. There is sulcal widening and ventricular enlargement consistent with cerebral atrophy. There is normal mercedes-white differentiation, without CT evidence of acute ischemia or infarct. The skull base and calvarium are unremarkable. The orbits are unremarkable. The paranasal sinuses are clear. The mastoid air cells are well-aerated. The soft tissues are unremarkable. CT/Brain/Head without Contrast IMPRESSION: No acute intracranial abnormality. Chronic involutional and ischemic changes of the brain. Electronically Signed: Oscar Skinner MD at 19:16 EDT Tel , Service support ,
[2020-06-06 18:46] LABS: Bedside Glucose 115 mg/dL (70-110)
--- NOTE | 2020-06-06 18:51 | ED.DCSUM_ITS ---
- ER Visit Summary Date of Service: 06/06/20 Chief Complaint: [Mental status change] History of Present Illness: The patient is a 65 F [presents to the emergency department with complaint of a mental status change. Currently patient's been more combative over the last several days. Patient today pulled out her PEG tube. Patient has history of diabetes, hypertension, high cholesterol, A. fib and history of aspiration pneumonia. She is currently anticoagulated with Xarelto. Patient does not give me any history.] Physical Examination: [HEENT-PERRLA, EOMI. Cranial nerves II through XII grossly intact. TMs clear. Mucous membranes moist. No adenopathy. Patient refuses to open her eyes and when I attempt to open them she fights me and does not allow me to open her eyes. Cardiovascular-regular rate and rhythm without murmur or ectopy Lungs-clear to auscultation, chest wall stable without crepitus or subcu emphysema Abdomen-normoactive bowel sounds, soft, nontender, no rebound or rigidity, no peritoneal signs. Extremities-intact ?4, normal range of motion, normal pulses, atraumatic] Test Results: [EKG obtained arrival showed a sinus rhythm with PACs otherwise nothing acute. CBC with differential showing a 9.6, hemoglobin 12, hematocrit 38.6, placed 294. Chemistries unremarkable. Urinalysis showed 500 excite esterase and 5-10 WBCs. Chest x-ray 1 view obtained interpreted by myself as no acute disease process and radiology interpreted as right lower lobe infiltrate now resolved with no acute disease process. Patient had a CT scan of the brain without contrast that showed nothing acute. KUB 1 view obtained after reinserting PEG tube reveals enteric tube in the stomach on my interpretation and radiology in agreement.] Emergency Department Course and Treatment: [Patient had a 22 Uzbek PEG tube reinserted into the stomach without difficulty. Gastrografin study obtained showed good placement in the stomach. Established on arrival. Patient was placed on a teletypesetter monitor. On repeat examination. Patient is awake and following commands and answering questions. She denies any complaints at this time.] Treatment Plan: [Patient will be [facility]] Disposition: [Discharged in stable condition] Impression: [PEG tube replacement Mental status change-resolved] This note was generated with [employer] software. It may contain incorrect words, spelling, and punctuation that were not noted in review of the chart prior to signing ED Disposition - Plan for ED Patient: Referrals: Jose Brown MD [Primary Care Provider] -
[2020-06-06 18:52] LABS: Absolute Lymphocyte Count 1.14 X10^3/uL (0.83-4.51); Absolute Neutrophil Count 7.6 X10^3/uL (2.0-7.7); Basophil# 0.05 X10^3/uL; Basophil% 0.5 % (0-1); Eosinophil# 0.01 X10^3/uL; Eosinophils% 0.1 % (0-5); Hematocrit 38.6 % (37-47); Hemoglobin 12.1 g/dL (12.0-15.0); Lymphocyte # 1.14 X10^3/ul (4.0); Lymphocyte % 11.9 % (19-41); Mean Corp Hgb Conc 31.3 g/dL (32-36); Mean Corpuscular Hgb 26.7 pg (27.0-32.0); Mean Platelet Vol. 10.8 fl (6.2-12.0); Monocyte# 0.75 X10^3/uL; Monocyte% 7.9 % (0-10); NRBC Flagged by Analyzer 0 % (0-5); Neutrophil # 7.58 X10^3/uL (2.7-7.7); Neutrophil % 79.4 % (47-70); Platelet Count 294 K/mm3 (150-450); RBC Distribution Width CV 14.1 % (11.6-14.6); RBC Distribution Width SD 43.6 fl (35.1-43.9); Red Blood Count 4.54 M/mm3 (4.2-5.4); White Blood Count 9.6 K/mm3 (4.4-11.0)
--- NOTE | 2020-06-06 19:06 | RAD_ITS ---
STUDY: X-RAY - ABDOMEN/PELVIS REASON FOR EXAM: Female, 65 years old. gastrografin for PEG replacement TECHNIQUE: Single AP view of the abdomen / pelvis. COMPARISON: None. FINDINGS: Normal visualized lung bases. There is an unremarkable bowel gas pattern. Enteric tube terminates near the gastric antrum. Oral contrast is noted within the stomach. No extravasation. The visualized liver, spleen and kidneys are grossly normal in size and morphology. Normal soft tissue structures. There are diffuse degenerative changes of the visualized lumbar spine. RAD/Abdomen Single View IMPRESSION: Enteric tube in the stomach Electronically Signed: Saleem Pulliam MD at 19:44 EDT , Service support ,
[2020-06-06 19:07] LABS: Anion Gap 8 (5-15); BUN 14 mg/dL (7-18); BUN/Creat Ratio 26.2 RATIO (10-20); Chloride 107 mmol/L (98-107); Creatinine, Serum 0.54 mg/dL (0.55-1.02); EST Glomerular Filtration Rate 121 mL/min (>60); Est Glom Filt Rate - Afr Amer 147 mL/min (>60); Glucose 115 mg/dL (74-106); Potassium 4.2 mmol/L (3.5-5.1); Sodium Level 140 mmol/L (136-145)
--- NOTE | 2020-06-06 19:10 | RAD_ITS ---
STUDY: X-RAY CHEST REASON FOR EXAM: Female, 65 years old. tachypnea TECHNIQUE: Single frontal view of the chest. COMPARISON: 04/01/2020 FINDINGS: Oral contrast noted in the stomach. The lungs are clear and expanded. There is no demonstrated pleural abnormality. Normal size heart. Normal mediastinum and mike. Normal visualized pulmonary arteries. Normal visualized aortic arch and descending thoracic aorta. Normal visualized thoracic spine. Normal visualized ribs, clavicles, and shoulders. There is no demonstrated abnormality of the visualized soft tissue structures of the upper abdomen. RAD/Chest 1 View (Portable) IMPRESSION: Right lower lobe infiltrate resolved. No acute disease. Electronically Signed: Saleem Pulliam MD at 19:46 EDT , Service support ,
[2020-06-06 19:39] LABS: Lactic Acid 1.4 mmol/L (0.4-1.9)
[2020-06-06 19:43] LABS: Bacteria 0 SEEN /hpf (None Seen); Mucous, Urine 0 SEEN /hpf (<or=2+); Red Blood Cells-Urine 0 SEEN /hpf (0-5); Squamous Epithelial Cells - UA 0 SEEN /hpf (5-10)
[2020-06-06 19:46] LABS: Color, Urine Yellow (Yellow); Glucose, Dipstick Normal (Normal); Ketone-Dipstick Negative (Negative); Leukocyte Esterase-Dipstick 500 /ul (Negative); Nitrite-Dipstick Negative (Negative); Occult Blood-Urine 10 /ul (Negative); Protein-Dipstick Negative (Negative); Specific Gravity, Urine 1.005 (1.002-1.030); Urine Bilirubin Dipstick Negative (Negative); Urine Clarity Clear (Clear); Urine Urobilinogen Normal (Normal)
[2020-06-06 19:53] LABS: White Blood Cells 5-10 SEEN /hpf (0-5)
[2020-06-06] MEDS: 0.9% Normal Saline 1,000 ML 150 ML IV (20:15)
--- NOTE | 2020-06-06 20:15 | ED.DEP ---
ED Disposition - Plan for ED Patient: Instructions: ED ALOC, PEG Feeding Tube Care: [place] Referrals: Jose Brown MD [Primary Care Provider] - 3-5 Days
[2020-06-06 20:17] VITALS: BP 156/81; PULSE 92; RESP 20; O2SAT 95
--- NOTE | 2020-06-06 20:35 | ED.RN ---
nurse to nurse report given to Ana Laura.
== END 2020-06-06 21:13 | disposition home or self-care (01) ==
PROVIDERS: Emergency Provider Emergency Medicine; PCP Internal Medicine
DX: R41.82 Altered mental status, unspecified (principal); Z43.1 Encounter for attention to gastrostomy; E11.9 Type 2 diabetes mellitus without complications; E78.00 Pure hypercholesterolemia, unspecified; I10 Essential (primary) hypertension; I48.91 Unspecified atrial fibrillation; Z79.02 Long term (current) use of antithrombotics/antiplatelets
CPT/HCPCS: 70450; 71045; 74018; 80048; 81001; 82962; 83605; 84484; 85025; 87040; 93005; 96360; 99285; J7030; J7040; A4216

== ENCOUNTER 2020-06-07 01:35 | Observation (INO) | payer MEDICAID, SELFPAY ==
[2020-06-06 18:33] VITALS: BMI 24.3
[2020-06-07] VITALS (10 sets, daily range): BP systolic 113–157; BP diastolic 71–83; PULSE 71–108; RESP 16–27; TEMP 36.9; O2SAT 93–100; BMI 25.2
--- NOTE | 2020-06-07 01:41 | EKG12_ITS ---
Test Reason : DYSRHYTHMIA Blood Pressure : / mmHG Vent. Rate : 092 BPM Atrial Rate : 092 BPM P-R Int : 132 ms QRS Dur : 076 ms QT Int : 378 ms P-R-T Axes : 047 028 028 degrees QTc Int : 467 ms Sinus rhythm with Premature atrial complexes Otherwise normal ECG Confirmed by EILEEN RAO, VALDO ([id number]), commissioning editor JOSE GEORGE ([id number]) on 06/11/2020 1:44:37 PM Referred By: MANDI Confirmed By:VALDO ARELLANO MD
[2020-06-07] MEDS: Ziprasidone IM 20 MG/ML VIAL 10 MG IM ×3 (01:44→18:03)
--- NOTE | 2020-06-07 01:55 | RAD_ITS ---
STUDY: X-RAY - ABDOMEN/PELVIS REASON FOR EXAM: Female, 65 years old. PEG replacement TECHNIQUE: 1 view after injection of GASTROGRAFIN through the PEG tube COMPARISON: None. FINDINGS: Injected contrast outlines mucosal of the stomach and small bowel with no evidence of contrast extravasation. The gastrostomy tube is in the distal gastric body. RAD/Abdomen Single View IMPRESSION: Gastrostomy tube in the distal gastric body with no contrast extravasation. Electronically Signed: Dick Rueda MD at 3:19 EDT Tel , Service support ,
--- NOTE | 2020-06-07 01:57 | ED.VIS.GEN ---
History of Present Illness Chief Complaint: Other, Pain/Inj Informant: Patient Narrative: 65-year-old female presents from local nursing facility after manually removing her PEG tube. This is the second time today patient has been in this emergency department. Patient was agitated and violent with staff. residential requesting geriatric psychiatry consult. Past Medical History - Allergies and Home Meds Allergies/Adverse Reactions: Allergies No Known Allergies Allergy (Verified 06/07/20 01:36) Primary Care Physician: Jose Brown MD [Primary Care Provider] - Past Medical History: - - HTN, HLD Surgical History: - - Cholecystectomy. Lives: [facility] Smoking Status: Unknown if ever smoked Alcohol: None Drugs: None - Family History Maternal Family History: Reports: - - Patient denies any market maternal or paternal family history including heart disease, diabetes, cancer. Paternal Family History: Reports: - - Patient denies any market maternal or paternal family history including heart disease, diabetes, cancer. Review of Systems ROS: Unable to Obtain - Agitated and confused Physical Exam Vital Signs/Narrative: Vital Signs Temp Pulse Resp BP Pulse Ox 06/07/20 01:36 98.4 F 94 20 H 129/75 H 100 Inital Vital Signs reviewed: Yes General: Well nourished, Well developed, No Acute Distress Head: Normocephalic, Atraumatic Eyes: Perrl, EOMI ENT: Moist mucous membranes, No rhinorrhea Neck: Supple, Nontender Cardiovascular: Regular rate, Regular rhythm, No murmurs Respiratory: No distress, CTA bilaterally, Chest nontender Abdomen: Soft, Nontender, Nondistended, Normal bowel sounds, - - PEG tube ostomy open and without surrounding bleeding or erythema. Back: Nontender, Normal Inspection Extremities: Nontender, No edema Skin: Normal color, No rash Neurological: Alert, - - No focal deficit. Psychological: Normal affect, Agitated Diagnostic/Tx/Re-eval Clinical Impression(s) from Imaging Studies KUB X-Ray 06/07/20 01:55 IMPRESSION: Gastrostomy tube in the distal gastric body with no contrast extravasation. Electronically Signed: Dick Rueda MD at 3:19 EDT Tel , Service support , Laboratory Data 06/07/20 06/07/20 06/07/20 02:14 02:14 02:14 WBC 6.4 RBC 4.52 Hgb 12.1 Hct 38.6 MCV 85.4 MCH 26.8 L MCHC 31.3 L RDW Std Deviation 44.1 H RDW Coeff of Jesica 14.3 Plt Count 258 MPV 10.2 Immature Gran % (Auto) 0.300 Neut % (Auto) 76.3 H Lymph % (Auto) 12.7 L [place] % (Auto) 10.2 H Eos % (Auto) 0.2 Baso % (Auto) 0.3 Absolute Neuts (auto) 4.9 Absolute Lymphs (auto) 0.81 L Nucleated RBC % 0 Sodium 142 Potassium 3.7 Chloride 109 H Carbon Dioxide 26.0 Anion Gap 7 BUN 15 Creatinine 0.58 Estim Creat Clear Calc 43.77 Est GFR (MDRD) Af Amer 134 Est GFR (MDRD) Non-Af 111 BUN/Creatinine Ratio 25.9 H Glucose 162 H Calcium 8.8 Urine Color Urine Clarity Urine pH Ur Specific [place] Urine Protein Urine Glucose (UA) Urine Ketones Urine Occult Blood Urine Nitrite Urine Bilirubin Urine Urobilinogen Ur Leukocyte Esterase Urine RBC Urine WBC Ur Squamous Epith Cells Urine Bacteria Urine Mucus Urine Yeast Urine Opiates Screen Urine Methadone Screen Ur Barbiturates Screen Ur Phencyclidine Scrn Ur Amphetamines Screen U Methamphetamin-MDMA U Benzodiazepines Scrn Urine Cocaine Screen U Cannabinoids Screen Ur Drug Screen Comment Ethyl Alcohol < 3.0 06/07/20 06/07/20 02:52 02:52 WBC RBC Hgb Hct MCV MCH MCHC RDW Std Deviation RDW Coeff of Jesica Plt Count MPV Immature Gran % (Auto) Neut % (Auto) Lymph % (Auto) [place] % (Auto) Eos % (Auto) Baso % (Auto) Absolute Neuts (auto) Absolute Lymphs (auto) Nucleated RBC % Sodium Potassium Chloride Carbon Dioxide Anion Gap BUN Creatinine Estim Creat Clear Calc Est GFR (MDRD) Af Amer Est GFR (MDRD) Non-Af BUN/Creatinine Ratio Glucose Calcium Urine Color Yellow Urine Clarity Cloudy Urine pH 7.0 Ur Specific [place] 1.010 Urine Protein 15 H Urine Glucose (UA) Normal Urine Ketones Negative Urine Occult Blood 10 H Urine Nitrite Negative Urine Bilirubin Negative Urine Urobilinogen Normal Ur Leukocyte Esterase 500 H Urine RBC 0-5 SEEN Urine WBC 10-25 SEEN Ur Squamous Epith Cells 0 SEEN Urine Bacteria RARE Urine Mucus 0 SEEN Urine Yeast RARE Urine Opiates Screen NEGATIVE Urine Methadone Screen NEGATIVE Ur Barbiturates Screen NEGATIVE Ur Phencyclidine Scrn NEGATIVE Ur Amphetamines Screen NEGATIVE U Methamphetamin-MDMA NEGATIVE U Benzodiazepines Scrn NEGATIVE Urine Cocaine Screen NEGATIVE U Cannabinoids Screen NEGATIVE Ur Drug Screen Comment Ethyl Alcohol - Rhythm Strip Rhythm Strip: Sinus Rhythm Rate: 98 Ectopy: None - EKG Initial EKG Interpretation: Sinus Rhythm - The 8 bpm. NH interval of 132 ms. QTC of 467 ms. Unchanged from previous today. No acute ischemia. - Medical Decision Making Patient arrives agitated and repeating let me go. Alert but not oriented. Patient had complete work-up done earlier with a CT brain which was negative. Lab work was repeated which is again negative. PEG tube was replaced by myself with confirmatory x-ray using Gastrografin. Patient was given Geodon upon arrival which has allowed her to calm down. Patient medically cleared and then evaluated by crisis. They feel she meets criteria for geriatric psychiatric placement. I agree with this evaluation and patient will be placed into local facility. Impression: 1. Agitation 2. Confusion 3. PEG tube removal with replacement ED Disposition - Plan for ED Patient: Disposition: Psychiatric Hospital or Unit Referrals: Jose Brown MD [Primary Care Provider] -
[2020-06-07 02:19] LABS: Absolute Lymphocyte Count 0.81 X10^3/uL (0.83-4.51); Absolute Neutrophil Count 4.9 X10^3/uL (2.0-7.7); Basophil# 0.02 X10^3/uL; Basophil% 0.3 % (0-1); Eosinophil# 0.01 X10^3/uL; Eosinophils% 0.2 % (0-5); Hematocrit 38.6 % (37-47); Hemoglobin 12.1 g/dL (12.0-15.0); Lymphocyte # 0.81 X10^3/ul (4.0); Lymphocyte % 12.7 % (19-41); Mean Corp Hgb Conc 31.3 g/dL (32-36); Mean Corpuscular Hgb 26.8 pg (27.0-32.0); Mean Corpuscular Volume 85.4 fL (81-99); Mean Platelet Vol. 10.2 fl (6.2-12.0); Monocyte# 0.65 X10^3/uL; Monocyte% 10.2 % (0-10); NRBC Flagged by Analyzer 0 % (0-5); Neutrophil # 4.85 X10^3/uL (2.7-7.7); Neutrophil % 76.3 % (47-70); Platelet Count 258 K/mm3 (150-450); RBC Distribution Width CV 14.3 % (11.6-14.6); RBC Distribution Width SD 44.1 fl (35.1-43.9); Red Blood Count 4.52 M/mm3 (4.2-5.4); White Blood Count 6.4 K/mm3 (4.4-11.0)
[2020-06-07 02:32] LABS: Anion Gap 7 (5-15); BUN 15 mg/dL (7-18); BUN/Creat Ratio 25.9 RATIO (10-20); Calcium,Total 8.8 mg/dL (8.5-10.1); Chloride 109 mmol/L (98-107); Creatinine, Serum 0.58 mg/dL (0.55-1.02); EST Glomerular Filtration Rate 111 mL/min (>60); Est Glom Filt Rate - Afr Amer 134 mL/min (>60); Estimated Creatinine Clearance 43.77 ml/min; Glucose 162 mg/dL (74-106); Potassium 3.7 mmol/L (3.5-5.1); Sodium Level 142 mmol/L (136-145)
[2020-06-07 02:38] LABS: Alcohol, Blood (Medical)-Serum < 3.0 mg/dL
[2020-06-07 02:57] LABS: Mucous, Urine 0 SEEN /hpf (<or=2+); Squamous Epithelial Cells - UA 0 SEEN /hpf (5-10)
[2020-06-07 03:00] LABS: Color, Urine Yellow (Yellow); Glucose, Dipstick Normal (Normal); Ketone-Dipstick Negative (Negative); Leukocyte Esterase-Dipstick 500 /ul (Negative); Nitrite-Dipstick Negative (Negative); Occult Blood-Urine 10 /ul (Negative); Protein-Dipstick 15 mg/dl (Negative); Urine Bilirubin Dipstick Negative (Negative); Urine Clarity Cloudy (Clear); Urine Urobilinogen Normal (Normal)
[2020-06-07 03:08] LABS: Red Blood Cells-Urine 0-5 SEEN /hpf (0-5); White Blood Cells 10-25 SEEN /hpf (0-5)
[2020-06-07 03:09] LABS: Bacteria RARE /hpf (None Seen); Yeast-Urine RARE /hpf (None Seen)
[2020-06-07 03:16] LABS: Amphetamine Urine VISTA NEGATIVE (<1000 ng/mL); Barbiturate Urine VISTA NEGATIVE (< 200 ng/mL); Benzodiazepine Urine VISTA NEGATIVE (< 200 ng/mL); Cocaine Urine VISTA NEGATIVE (< 300 ng/mL); Ecstacy Urine VISTA NEGATIVE (< 500 ng/mL); Methadone Urine VISTA NEGATIVE (< 300 ng/mL); PCP Urine VISTA NEGATIVE (< 25 ng/mL); THC Urine VISTA NEGATIVE (< 50 ng/mL); Vista UDS pH Range 7
--- NOTE | 2020-06-07 05:36 | ED.RN ---
PT STANDING AT FOOT OF BED TRYING TO FIND THE BATHROOM. THIS RN ATTEMPTED TO LEAD PT BACK INTO HER ROOM BY ELBOW SO SHE COULD USE A BEDSIDE COMMODE. PT GRABBED DOOR FRAME OF ANOTHER PTS ROOM AND REFUSED TO LET GO. WITH ASSISTANCE OF ANOTHER NURSE AND THE ED DOC PT WAS PUT BACK IN BED. PT KICKING AND UNCOOPERATIVE. NOT RESPONDING TO VERBAL DEESCALATION AND REASSURANCE. PT PLACED IN BILATERAL SOFT RESTRAINTS AND MEDICATION ORDER OBTAINED
--- NOTE | 2020-06-07 05:48 | ED.RN ---
PER FACILITY STAFF, PT DECLINED AT [facility]. THIS RN TO NOTIFY CRISIS
--- NOTE | 2020-06-07 06:55 | ED.RN ---
FANNIE HARPER WITH CRISIS PT IS PENDING ACCEPTANCE AT [facility]
--- NOTE | 2020-06-07 15:37 | CM.ED ---
SOCIAL WORK Zehra with [facility]. Per Zehra, spoke with niece and niece believes the care home is dumping her. Niece informed Zehra does not want patient at [facility], but wishes for her to be sent to [place]. Call to Crisis to update on the above. Crisis to follow up with patient's family. Wil Romeo, RN DISEASE MANAGEMENT, TOP LIFT COMPRESSOR
--- NOTE | 2020-06-07 18:05 | ED.RN ---
PT BEGAN SCREAMING AND UNCOOPERATIVE. DR DUVAL NOTIFIED AND 10MG GEODON ORDERED. PT STILL REMAINS SOFT RETRAINTS AT THIS TIME. SAFETY MAINTAINED. WILL CONTINUE TO MONITOR.
--- NOTE | 2020-06-07 18:50 | CM.ED ---
SOCIAL WORK Per Crisis, referral has been made to [facility]. Pending review. Wil Romeo, TELEPHONE INFORMATION SUPERVISOR, SENIOR WEB DESIGNER
--- NOTE | 2020-06-07 19:52 | CM.ED ---
SOCIAL WORK Per Rochelle with Crisis, [facility] requesting chest x-ray. Dr. Daniel luke. Magalie. Agueda, VACUUM TANK TENDER, TOBACCO ROLLER
--- NOTE | 2020-06-07 19:55 | RAD_ITS ---
STUDY: X-RAY CHEST REASON FOR EXAM: Female, 65 years old. Clearance for psychiatric admission. -- Best image possible with patients condition. Unable to follow breathing instructions. TECHNIQUE: Single frontal view of the chest. COMPARISON: 06/06/2020 FINDINGS: The lungs are clear and expanded. There is no demonstrated pleural abnormality. Calcified nodule annulus. Normal size heart. Normal mediastinum and mike. Normal visualized pulmonary arteries. Normal visualized aortic arch and descending thoracic aorta. Normal visualized thoracic spine. Normal visualized ribs, clavicles, and shoulders. There is no demonstrated abnormality of the visualized soft tissue structures of the upper abdomen. Oral contrast noted within the bowel. RAD/Chest 1 View (Portable) IMPRESSION: No acute disease Electronically Signed: Saleem Pulliam MD at 21:32 EDT , Service support ,
[2020-06-07 20:26] LABS: Bedside Glucose 129 mg/dL (70-110)
[2020-06-07] MEDS: Jevity 1.5. 1,000 ML Bottle 250 ML GT (22:48)
[2020-06-07] MEDS: Atorvastatin Calcium 10 MG Tablet 5 MG GT (23:03)
[2020-06-07] MEDS: Benztropine 2 MG Tablet 1 MG PO (23:03)
[2020-06-07] MEDS: metFORMIN HCl 500 MG Tablet GT (23:03)
[2020-06-07] MEDS: OLANZapine 10 MG Tablet 15 MG GT (23:03)
[2020-06-07] MEDS: Gabapentin 600 MG Tablet GT (23:12)
--- NOTE | 2020-06-07 23:30 | ED.RN ---
Patient has been denied at [facility], patient information being sent to [facility] at this time for possible admission
[2020-06-08] VITALS (12 sets, daily range): BP systolic 94–123; BP diastolic 57–80; PULSE 73–89; RESP 15–23; TEMP 36–37; O2SAT 93–100; BMI 25.3; BMI 23.8
[2020-06-08] MEDS: Jevity 1.5. 1,000 ML Bottle 250 ML GT ×4 (07:26→22:17)
[2020-06-08] MEDS: Gabapentin 600 MG Tablet GT ×3 (07:26→16:44)
[2020-06-08 07:45] LABS: Bedside Glucose 93 mg/dL (70-110)
--- NOTE | 2020-06-08 09:23 | ED.RN ---
THIS RN RECEIVED A CALL FROM SRINATH AT THE [facility]. SHE REPORTS THAT PT INFORMATION HAS BEEN FAXED TO [facility], PT PENDING ACCEPTANCE AT THESE PLACES. SHE ALSO REPORTS THAT [facility] HAS DECLINED PT DUE TO MEDICAL PURPOSES. PT SLEEPING, RESPIRES EVEN AND UNLABORED.
[2020-06-08] MEDS: Rivaroxaban 20 MG Tablet GT (09:34)
[2020-06-08] MEDS: Oxybutynin 5 MG Tablet GT (09:34)
[2020-06-08] MEDS: Lansoprazole 15 MG Capsule.DR GT (09:34)
[2020-06-08] MEDS: Lisinopril 40 MG Tablet GT (09:34)
[2020-06-08] MEDS: Benztropine 2 MG Tablet 1 MG PO ×2 (09:35→22:19)
[2020-06-08] MEDS: metFORMIN HCl 500 MG Tablet GT ×2 (09:35→22:20)
[2020-06-08] MEDS: Aspirin 81 MG TAB.CHEW GT (09:36)
[2020-06-08] MEDS: Cephalexin 250 MG Capsule 500 MG GT (11:52)
[2020-06-08 12:06] LABS: Bedside Glucose 126 mg/dL (70-110)
--- NOTE | 2020-06-08 13:16 | NURSING ---
CALLED [facility], TALKED TO SRINATH. [facility] NEEDS EKG, MEDICAL CLEARANCE, AND REASON FOR PEG TUBE. PHONE NUMBER [phone] FAX NUMBER [phone] MAY ACCEPT HER THURSDAY
--- NOTE | 2020-06-08 13:38 | NURSING ---
FAXED TO [facility] PER SRINATH, CRISIS: EKG MEDICALLY CLEARED REASON FOR PEG TUBE
--- NOTE | 2020-06-08 13:57 | ED.RN ---
PER CRISIS, PT REFUSED BY [facility] PENDING AT [facility]. [facility] WILL NOT HAVE BEDS AVAILABLE UNTIL THURSDAY.
--- NOTE | 2020-06-08 14:32 | NURSING ---
DR RAMO HUBBARD
--- NOTE | 2020-06-08 14:58 | NURSING ---
324 RAMO UTI, DEMENTIA
--- NOTE | 2020-06-08 15:47 | ED.RN ---
THIS NURSE SPOKE WITH DR RALPH ABOUT THE ADMISSION. PER DR RALPH WE DO NOT ADMIT [facility]. I ATTEMPTED TO EXPLAIN THAT THE PT ALSO HAS A UTI. I ALSO SPOKE WITH THE 3 STAFF MEMBERS FROM THE [facility] THAT CAME IN TO SEE THE PT. THEY ATTEMPTED TO DO AN ASSESSMENT AT THE BEDSIDE. THE PT DID NOT WAKE UP FOR THE ASSESSMENT. I CONTACTED SARA ASHBY TO ASSIST IN THIS SITUATION. PER THE [facility], THE PT HAS BEEN DECLINED AT MANY DIFFERENT FACILITIES. [facility] WILL LOOK AT HER CHART ON THURSDAY
[2020-06-08 16:00] LABS: Bedside Glucose 98 mg/dL (70-110)
[2020-06-08] MEDS: Cephalexin Suspension 250 MG/5 ML PO.SYRINGE 500 MG GT (16:45)
[2020-06-08 18:27] LABS: Absolute Neutrophil Count 5.6 X10^3/uL (2.0-7.7); Basophil# 0.04 X10^3/uL; Basophil% 0.5 % (0-1); Eosinophil# 0.01 X10^3/uL; Eosinophils% 0.1 % (0-5); Hematocrit 39.4 % (37-47); Hemoglobin 12.1 g/dL (12.0-15.0); Lymphocyte % 14.8 % (19-41); Mean Corp Hgb Conc 30.7 g/dL (32-36); Mean Corpuscular Volume 87.9 fL (81-99); Monocyte# 0.69 X10^3/uL; Monocyte% 9.3 % (0-10); NRBC Flagged by Analyzer 0 % (0-5); Neutrophil # 5.58 X10^3/uL (2.7-7.7); Platelet Count 295 K/mm3 (150-450); RBC Distribution Width CV 14.6 % (11.6-14.6); RBC Distribution Width SD 46.6 fl (35.1-43.9); Red Blood Count 4.48 M/mm3 (4.2-5.4); White Blood Count 7.4 K/mm3 (4.4-11.0)
[2020-06-08 18:34] LABS: Anion Gap 8 (5-15); BUN 34 mg/dL (7-18); BUN/Creat Ratio 53.4 RATIO (10-20); Calcium,Total 8.5 mg/dL (8.5-10.1); Chloride 110 mmol/L (98-107); Creatinine, Serum 0.64 mg/dL (0.55-1.02); EST Glomerular Filtration Rate 99 mL/min (>60); Est Glom Filt Rate - Afr Amer 120 mL/min (>60); Estimated Creatinine Clearance 43.77 ml/min; Glucose 129 mg/dL (74-106); Potassium 4.2 mmol/L (3.5-5.1); Sodium Level 144 mmol/L (136-145)
--- NOTE | 2020-06-08 19:13 | CT_ITS ---
STUDY: CT BRAIN WITHOUT CONTRAST REASON FOR EXAM: Female, 65 years old. Headache RADIATION DOSAGE (If Supplied By Facility): CTDIvol = ( 44.99 ) mGy, DLP = ( 779.24 ) mGycm TECHNIQUE: Transaxial CT imaging of the brain was performed without administration of intravenous contrast material. Individualized dose optimization techniques were used for this CT. COMPARISON: CT brain 06/06/2020 FINDINGS: Normal soft tissue structures. Normal calvarium. There is mild cerebral atrophy with widening of the extra-axial spaces and ventricular dilatation. There are areas of decreased attenuation within the white matter tracts of the supratentorial brain, consistent with microvascular disease changes. Normal basal ganglia and thalami. Normal brainstem. Normal cerebellum. There is no intracranial hemorrhage. There are no findings of an acute ischemic infarction. Normal visualized paranasal sinuses. CT/Brain/Head without Contrast IMPRESSION: Atrophy. No acute disease. Electronically Signed: Saleem Pulliam MD at 20:32 EDT , Service support ,
--- NOTE | 2020-06-08 19:21 | HP.PCM_ITS ---
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 use Diabetes mellitus complication status: with other specified complication Qualified Code(s): E11.69 - Type 2 diabetes mellitus with other specified complication (7) Hyperlipidemia Status: Chronic Qualifiers: Hyperlipidemia type: unspecified Qualified Code(s): E78.5 - Hyperlipidemia, unspecified (8) Hypertension Status: Chronic Qualifiers: Hypertension type: essential hypertension Qualified Code(s): I10 - Essential (primary) hypertension History of Present Illness Date of Admission: 06/08/20 Chief Complaint: Altered mental status The patient is a 65 year old F with multiple comorbidities as mentioned above including anxiety and depression on olanzapine was sent from [facility] after she got agitated, restless and disoriented and removed her PEG tube. Patient was also violent with the nursing staff. Patient was sent to ER on 06/07 at [facility] for [facility] psych consult evaluation. Patient is still restless and anxious and moving her legs. On further history, she states she has burning micturition and increased frequency. No fever noted in ED. Vitals are stable. She had regular home medications including Cogentin and olanzapine. CBC and BMP in the suitable limit except BUN 34 suggestive of dehydration. UA shows WBC 10-25 cells, LE 500, protein 15. Urine culture is pending. SARS-CoV-2 rapid antigen negative. Blood culture x2 from 06/06 are pending. Mental health crisis team was seen in ER but no concrete plan as per charge ED nurse, Madiha about Bee psych placement on coming Thursday. Chest x-ray reported no acute disease. No CT head ordered. Past Medical History Past Medical History (Chronic Problems): Chronic Problems Hypertension (Chronic) Hyperlipidemia (Chronic) Chronic insomnia (Chronic) Diabetes mellitus, type II (Chronic) Achalasia (Chronic) Allergies No Known Allergies Allergy (Verified 06/07/20 01:36) Home Medications: Ambulatory Orders Medication Instructions Recorded Lisinopril 40 mg PO DAILY 12/01/13 Olanzapine 15 mg PO QHS 12/01/13 Aspirin [Aspir-Low] 81 mg PO DAILY 05/18/19 Benztropine [Cogentin] 1 mg PO BID 05/18/19 Calcium Carbonate/Vitamin D3 1 ea GT BID 05/18/19 [Calcium 600 + Vit D Tablet] Gabapentin [Neurontin] 100 mg PO TIDCM 05/18/19 Metformin HCl 500 mg PO BID 05/18/19 Oxybutynin [Ditropan] 10 mg PO DAILY 05/18/19 Simvastatin 10 mg PO QHS 05/18/19 Multivitamin [Daily Griffin] 1 ea PO DAILY 02/05/20 Albuterol Sulfate [Albuterol 2 puff IH 4X/DAY 04/01/20 Sulfate HFA] Bisacodyl 10 mg RC DAILY PRN PRN 04/01/20 Budesonide/Formoterol Fumarate 2 puff IH BID 04/01/20 [Symbicort 80-4.5 Mcg Inhaler] Guaifenesin [Robitussin] 10 ml PO Q4H PRN PRN 04/01/20 Health Maintenance Flush 125 ml GT ACHS 04/01/20 Lactose-Reduced Food/Fiber [Jevity 250 ml GT [facility] 04/01/20 1.5 Hermes Liquid] Mag Hydrox/Al Hydrox/Simeth 30 ml PO Q4H PRN PRN 04/01/20 [Mylanta II] Lansoprazole 15 mg PO DAILY 06/07/20 Acetaminophen [Tylenol] 650 mg PO Q4H PRN PRN 06/08/20 Debrox 6 drp EACH EAR DAILY PRN 06/08/20 Magnesium Hydroxide [Milk Of 30 ml PO DAILY PRN PRN 06/08/20 Magnesia] Menthol/Lanolin/Calamine/Znox 1 applic TOPICAL BID 06/08/20 [Calmoseptine Ointment] Na Phos,M-B/Na Phos,Di-Ba [Fleet 120 ml RECTAL X1 06/08/20 Enema] Rivaroxaban [Xarelto] 20 mg PO DAILY 06/08/20 Surgical History: - - Cholecystectomy. 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 Paternal History Items: - - Patient denies any market maternal or paternal family history including heart disease, diabetes, cancer. Review of Systems Eyes: Denies: Blurred vision Cardiovascular: Denies: Chest Pain, Chest Pressure, Chest Tightness Respiratory: Denies: Cough, Shortness of Breath, Shortness of breath at rest Gastrointestinal: Denies: Abdominal Pain, Constipation, Diarrhea Genitourinary: Reports: Dysuria, Frequency Psychiatric: Reports: Anxiety, Depression Unable to obtain accurate/complete ROS d/t: Sleeping, hard to keep awake, restless and anxious VTE Information - Inpt Only VTE Present on Admission: No VTE Mechan Device Prophylaxis: None VTE Pharm Prophylaxis ordered?: No Reason prophylaxis not ordered:: Procedure Not Indicated - And already on Xarelto Objective: General: Drowsy and lethargic. On waking up, patient oriented to time, place and person but not situation. HEENT: Atraumatic, PERRLA, EOMI, Normocephalic Oral: No Gingival or Mucosal Lesions/ Ulcerations Neck: Supple, No JVD, Negative Carotid Bruits Lungs: Air entry diminished in bilateral lung bases. No crepitation/rhonchi Cardiovascular: Regular rate, Regular Rhythm, Normal S1, Normal S2, No murmurs Abdomen: Bowel Sounds Present, Soft, Non Tender, Non-Distended. G-tube present. : No renal angle tenderness. No suprapubic tenderness. Extremities: No edema, Capillary Refill Less than 3 Seconds Skin: No rashes, No breakdown Musculoskeletal: No Tenderness to Palpation of Joints or Extremities Neurological: Cranial nerves II-XII grossly intact, no focal neurological deficit. Psych/Mental Status: Restless, anxious and constantly moving - Physical Exam Vitals/I&O's: Vital Signs Temp Pulse Resp BP Pulse Ox 96.8 F L 80 15 123/66 H 98 06/08/20 19:20 06/08/20 19:20 06/08/20 19:20 06/08/20 19:20 06/08/20 19:20 Oxygen Delivery Method Room Air Weight: 138 lb 3.677 oz Body Mass Index (BMI) 25.2 Finger Stick Blood Glucose 98 Microbiology Past 72 Hours 06/07/20 02:00 Mucosa - Nasopharyngeal SARS-CoV-2 Antigen (Rapid) - Final Laboratory Results 06/07/20 20:19: POC Glucose 129 H 06/08/20 07:26: POC Glucose 93 06/08/20 11:35: POC Glucose 126 H 06/08/20 15:54: POC Glucose 98 06/08/20 18:07: WBC 7.4, RBC 4.48, Hgb 12.1, Hct 39.4, MCV 87.9, MCH 27.0, MCHC 30.7 L, RDW Std Deviation 46.6 H, RDW Coeff of Jesica 14.6, Plt Count 295, MPV 11.0, Immature Gran % (Auto) 0.300, Neut % (Auto) 75.0 H, Lymph % (Auto) 14.8 L, Perkins % (Auto) 9.3, Eos % (Auto) 0.1, Baso % (Auto) 0.5, Absolute Neuts (auto) 5.6, Absolute Lymphs (auto) 1.10, Nucleated RBC % 0 06/08/20 18:07: Sodium 144, Potassium 4.2, Chloride 110 H, Carbon Dioxide 26.0, Anion Gap 8, BUN 34 H, Creatinine 0.64, Estim Creat Clear Calc 43.77, Est GFR (MDRD) Af Amer 120, Est GFR (MDRD) Non-Af 99, BUN/Creatinine Ratio 53.4 H, Glucose 129 H, Calcium 8.5 Current Medications Aspirin (Aspirin 81 Mg Tab.Chew) 81 mg GT DAILY [facility] Last Admin: 06/08/20 09:36 Dose: 81 mg Documented by: Atorvastatin Calcium (Atorvastatin Calcium 10 Mg Tablet) 5 mg GT QHS [facility] Last Admin: 06/07/20 23:03 Dose: 5 mg Documented by: Benztropine Mesylate (Benztropine 2 Mg Tablet) 1 mg PO BID [facility] Last Admin: 06/08/20 09:35 Dose: 1 mg Documented by: Cephalexin (Cephalexin Suspension 250 Mg/5 Ml Po.Syringe) 500 mg GT Q6 [facility] Last Admin: 06/08/20 16:45 Dose: 500 mg Documented by: Enteral Nutritional Formula (Jevity 1.5. 1,000 Ml Bottle) 250 ml GT ACHS [facility] Last Admin: 06/08/20 16:52 Dose: 250 ml Documented by: Enteral Nutritional Formula (Jevity 1.5. 1,000 Ml Bottle) 250 ml GT [facility] Gabapentin (Gabapentin 600 Mg Tablet) 600 mg GT TIDCM [facility] Last Admin: 06/08/20 16:44 Dose: 600 mg Documented by: Lansoprazole (Lansoprazole 15 Mg Capsule.) 15 mg GT DAILY [facility] Last Admin: 06/08/20 09:34 Dose: 15 mg Documented by: Lisinopril (Lisinopril 40 Mg Tablet) 40 mg GT DAILY [facility] Last Admin: 06/08/20 09:34 Dose: 40 mg Documented by: Metformin HCl (Metformin Hcl 500 Mg Tablet) 500 mg GT BID [facility] Last Admin: 06/08/20 09:35 Dose: 500 mg Documented by: Olanzapine (Olanzapine 10 Mg Tablet) 15 mg GT QHS [facility] Last Admin: 06/07/20 23:03 Dose: 15 mg Documented by: Oxybutynin Chloride (Oxybutynin 5 Mg Tablet) 5 mg GT DAILY [facility] Last Admin: 06/08/20 09:34 Dose: 5 mg Documented by: Rivaroxaban (Rivaroxaban 20 Mg Tablet) 20 mg GT DAILY [facility] Last Admin: 06/08/20 09:34 Dose: 20 mg Documented by: Assessment/Plan All Active Problems UTI (urinary tract infection) (Acute) Delirium (Acute) Aspiration pneumonia (Resolved) 65-year-old female admitted with altered mental status, restlessness and anxiety and the symptoms and UA suggestive of UTI. 1. Acute encephalopathy most probably metabolic/UTI with history of anxiety and depression: Patient is being admitted to MedSurg floor. Orientation cues. Started on IV ceftriaxone. Patient is dehydrated therefore almost 100 mL/h for 2 L. Follow blood cultures, urine culture. SARS-CoV-2 rapid antigen is negative. Chest x-ray reported no acute abnormality. CT head was ordered in ED. Report is pending. Retrospectively patient had CT head on 06/06 and reported no acute intracranial abnormality. 2. Currently sinus rhythm with history of chronic A. fib on Xarelto. Heart rate is controlled. Twelve-lead EKG done in ER on 06/07 shows normal sinus rhythm at 98 3100, QTC 467 ms. Previous EKG on 06/06 similar sinus rhythm with PACs. Heart rate is controlled. 3 type 2 diabetes mellitus: Blood sugar good control, glucose 129. On Accu-Chek before meals and at bedtime and cover with Hem-o-puneet sliding scale. Patient is on Metformin through G-tube. 4 hypertension: Blood pressure controlled. Continued lisinopril. 5. History of achalasia and aspiration pneumonia for which she was admitted in March 2020 with acute hypoxic respiratory failure: Currently on PEG tube feeding. 6. Anemia of chronic disease: H&H 12.1/39.4. 7. DVT prophylaxis: Continue Xarelto. As patient is not on fully good alert mental condition therefore CODE STATUS was not discussed. By default will continue full code. OBSV E&M: 52170 Initial observation care L3
[2020-06-08 19:30] LABS: Mucous, Urine 0 SEEN /hpf (<or=2+); Red Blood Cells-Urine 0 SEEN /hpf (0-5); Squamous Epithelial Cells - UA 0 SEEN /hpf (5-10)
[2020-06-08 19:48] LABS: Color, Urine Yellow (Yellow); Glucose, Dipstick Normal (Normal); Ketone-Dipstick 15 mg/dl (Negative); Leukocyte Esterase-Dipstick 500 /ul (Negative); Nitrite-Dipstick Positive (Negative); Occult Blood-Urine 25 /ul (Negative); Protein-Dipstick 30 mg/dl (Negative); Specific Gravity, Urine 1.025 (1.002-1.030); Urine Bilirubin Dipstick Negative (Negative); Urine Clarity Turbid (Clear); Urine Urobilinogen 1 mg/dl (Normal)
[2020-06-08 19:54] LABS: ALB/GLOB Ratio 0.8 RATIO (0.9-2.4); AST(SGOT) 13 U/L (15-37); Alanine Aminotransfer ALT/SGPT 16 U/L (13-56); Albumin, Serum 2.9 g/dL (3.2-5.0); Alkaline Phosphatase 111 U/L (45-117); Anion Gap 9 (5-15); BUN 35 mg/dL (7-18); BUN/Creat Ratio 54.7 RATIO (10-20); Calcium,Total 8.5 mg/dL (8.5-10.1); Chloride 110 mmol/L (98-107); Creatinine, Serum 0.64 mg/dL (0.55-1.02); EST Glomerular Filtration Rate 99 mL/min (>60); Est Glom Filt Rate - Afr Amer 119 mL/min (>60); Estimated Creatinine Clearance 43.77 ml/min; Globulin 3.8 g/dL (2.2-4.2); Glucose 131 mg/dL (74-106); Potassium 4.2 mmol/L (3.5-5.1); Protein, Total 6.7 g/dL (6.4-8.2); Sodium Level 144 mmol/L (136-145); Thyroid Stim Hormone (TSH) 0.36 uIU/mL (0.358-3.74)
--- NOTE | 2020-06-08 20:04 | ED.RN ---
[facility] called about possible admission made aware she is being admitted
[2020-06-08 20:15] LABS: Bacteria 4+ /hpf (None Seen); Calcium Oxalate Crystals Ur 2+ /hpf (<or=2+); White Blood Cells 50-100 SEEN /hpf (0-5)
[2020-06-08 21:41] LABS: Magnesium 2.2 mg/dL (1.6-2.6)
[2020-06-08] MEDS: Lactulose 20 GM/30 ML UDC 10 GM GT (22:15)
[2020-06-08] MEDS: 0.9% Normal Saline 1,000 ML 100 ML IV (22:15)
[2020-06-08] MEDS: Menthol/Lanolin/Calamine/Znox 113 GM Tube 1 APPLIC TOPICAL (22:15)
[2020-06-08] MEDS: Ceftriaxone 1 GM/50 ML BAG IV (22:15)
[2020-06-08] MEDS: 0.9% Saline Lock 10 ML Syringe IV (22:17)
[2020-06-08] MEDS: OLANZapine 10 MG Tablet 15 MG GT (22:19)
[2020-06-08] MEDS: Atorvastatin Calcium 10 MG Tablet 5 MG GT (22:19)
[2020-06-08] MEDS: Senna/Docusate Sodium 1 Tablet 2 TABLET PO (22:21)
[2020-06-08] MEDS: Insulin Lispro 100 UNIT/ML INSULN.PEN SC (23:07)
[2020-06-08 23:11] LABS: Bedside Glucose 249 mg/dL (70-110)
[2020-06-09] VITALS (10 sets, daily range): BP systolic 99–178; BP diastolic 52–92; PULSE 78–115; RESP 18–39; TEMP 36.6–37.5; O2SAT 92–96; BMI 23.8
--- NOTE | 2020-06-09 02:27 | NURSING ---
taylor inserted under sterile field d/t retention per order. pt asleep the whole time.
[2020-06-09] MEDS: Jevity 1.5. 1,000 ML Bottle 250 ML GT ×2 (06:14→22:11)
[2020-06-09 06:18] LABS: Absolute Lymphocyte Count 1.22 X10^3/uL (0.83-4.51); Absolute Neutrophil Count 5.4 X10^3/uL (2.0-7.7); Basophil# 0.04 X10^3/uL; Basophil% 0.5 % (0-1); Eosinophil# 0.01 X10^3/uL; Eosinophils% 0.1 % (0-5); Hemoglobin 11.8 g/dL (12.0-15.0); Lymphocyte # 1.22 X10^3/ul (4.0); Lymphocyte % 16.6 % (19-41); Mean Corp Hgb Conc 30.3 g/dL (32-36); Mean Corpuscular Hgb 26.9 pg (27.0-32.0); Mean Platelet Vol. 10.7 fl (6.2-12.0); Monocyte# 0.71 X10^3/uL; Monocyte% 9.6 % (0-10); NRBC Flagged by Analyzer 0 % (0-5); Neutrophil # 5.36 X10^3/uL (2.7-7.7); Neutrophil % 72.9 % (47-70); Platelet Count 290 K/mm3 (150-450); RBC Distribution Width CV 14.6 % (11.6-14.6); RBC Distribution Width SD 47.3 fl (35.1-43.9); Red Blood Count 4.38 M/mm3 (4.2-5.4); White Blood Count 7.4 K/mm3 (4.4-11.0)
[2020-06-09 06:20] LABS: Bedside Glucose 82 mg/dL (70-110)
[2020-06-09 07:25] LABS: Anion Gap 5 (5-15); BUN 35 mg/dL (7-18); BUN/Creat Ratio 69.2 RATIO (10-20); Calcium,Total 8.4 mg/dL (8.5-10.1); Chloride 112 mmol/L (98-107); Creatinine, Serum 0.51 mg/dL (0.55-1.02); EST Glomerular Filtration Rate 129 mL/min (>60); Est Glom Filt Rate - Afr Amer 157 mL/min (>60); Estimated Creatinine Clearance 43.77 ml/min; Glucose 89 mg/dL (74-106); Phosphorus 2.9 mg/dL (2.5-4.9); Potassium 4.1 mmol/L (3.5-5.1); Sodium Level 143 mmol/L (136-145); Thyroid Stim Hormone (TSH) 0.46 uIU/mL (0.358-3.74)
--- NOTE | 2020-06-09 08:22 | NURSING ---
Approximately 20 min ago, bed exit going off, pt standing up at end of bed yelling loudly that she needed to get out of here. Pt had pulled out her peg tube and taylor both were out and laying on the bed. Able to get her to sit on edge of bed but then pt flopped herself on her side and closed her eyes. No resp or cardiac distress. Pt had eyes closed and was ignoring staff. Pt let us pull her up in bed. PThis nurse reinforced my name and that I was not here to hurt her. Pt then started talking to nurse when asked questions. Pt said she was trying to go to [place] but the rest of her conversation was hard to follow as she was tearful and I could not understand her. Pt breathing fast and licking her lips. Pt following some commands. Pt constantly moving legs in bed. Dr. Galvan texted, made aware taylor and peg tube was pulled out. This nurse put a 16fr taylor tube into peg tube site per Dr. Galvan and Dr. Hawthorne has been consulted. Pt remains quiet in bed, eyes closed and repeatedly singing, I love you to herself. This nurse remains at bedside charting until XENA Gray comes and sits with pt.
--- NOTE | 2020-06-09 08:57 | NURSING ---
This nurse called Pts brother and Pt's niece, Cheryl answered. Went over MRI questions. While this nurse in room with pt and on the phone with Niece Dr. Galvan came in to see pt. Wanted me to ask Cheryl if there was any underlying behavior issues. Cheryl stated that she was High functioning MRDD and also has Schziophrenia but has never been combative with family. Pt has lived with her brother Chaz and Cheryl since she was in High school. Pt has her stuffed ehsan bear and occasionally starts to sing.
[2020-06-09] MEDS: 0.9% Normal Saline 1,000 ML 75 ML IV ×2 (09:10→22:08)
[2020-06-09] MEDS: Nystatin Powder 15gm Bottle 1 APPLIC TOPICAL ×2 (12:35→22:09)
[2020-06-09] MEDS: Albuterol 2.5 MG/3 ML VIAL.NEB. INHALATION (12:52)
[2020-06-09] MEDS: Budesonide Respules 0.5 MG/2 ML AMPUL.NEB. INHALATION (13:10)
--- NOTE | 2020-06-09 13:30 | PCM.NTREPORT ---
Nutrition Therapy Report - History Nutrition Services has been consulted to:: Manage nutrient details of diet order, Manage enteral nutrition Current diet / nutrition support order:: NPO, TF- PEG to be replaced this day. - Anthropometric Measurements Height:: 5 ft 2 in Weight:: 59 kg Body Mass Index (BMI):: 23.8 - Relevant Labs Relevant Labs:: Hgb 11.8 g/dL (12.0-15.0) L 06/09/20 06:10 MCH 26.9 pg (27.0-32.0) L 06/09/20 06:10 MCHC 30.3 g/dL (32-36) L 06/09/20 06:10 RDW Std Deviation 47.3 fl (35.1-43.9) H 06/09/20 06:10 Neut % (Auto) 72.9 % (47-70) H 06/09/20 06:10 Lymph % (Auto) 16.6 % (19-41) L 06/09/20 06:10 Gilmer % (Auto) 10.2 % (0-10) H 06/07/20 02:14 Absolute Lymphs (auto) 0.81 X10^3/uL (0.83-4.51) L 06/07/20 02:14 Chloride 112 mmol/L (98-107) H 06/09/20 06:10 BUN 35 mg/dL (7-18) H 06/09/20 06:10 Creatinine 0.51 mg/dL (0.55-1.02) L 06/09/20 06:10 BUN/Creatinine Ratio 69.2 RATIO (10-20) H 06/09/20 06:10 Glucose 129 mg/dL (74-106) H 06/08/20 18:07 Glucose 131 mg/dL (74-106) H 06/08/20 18:07 Calcium 8.4 mg/dL (8.5-10.1) L 06/09/20 06:10 AST 13 U/L (15-37) L 06/08/20 18:07 Albumin 2.9 g/dL (3.2-5.0) L 06/08/20 18:07 Albumin/Globulin Ratio 0.8 RATIO (0.9-2.4) L 06/08/20 18:07 - Assessment Food / Nutrition-Related History:: RDN attempted to speak w/ pt however pt not responding to questions. Plans for PEG tube replacement this day- pt pulled PEG out this morning. [facility] from [facility]- presents w/ altered mental status and pulled PEG out. Per [facility] documentation in hard chart pt on Regular diet w/ mechanical soft textures w/ lidded sipper cup for liquids captain fishing vessel. Pt receives Isosource HN 1.5 250 ml bolus if less than 50% of meal is consumed. She receives Isosource 1.5 250 ml bolus at bedtime- 125 ml H2O flush 4x/day before meals & at bedtime. Per records as of 05/28/20 [facility] [employer] rec due to adequate maintenance of PO nutrition/hydration rec consideration of PEG removal. Suspect adequate PO intake captain fishing vessel and AMS and pt not utilizing PEG/recieving TF formula frequently during SNF stay per SNF [employer] rec consideration of PEG removal. Suspect pt just receieving bedtime Tf in addition to PO intake- HS TF provides 375 calories, 17 g protein, 691 ml total fluid from flushes & TF. - Nutrition Diagnosis Problem / Etiology / Signs & Symptoms (PES):: Inadequate enteral nutrition infusion RT compromised PEG tube AEB pt removed PEG tube, awaiting replacement. Evidence of Malnutrition Exists:: No - Nutrition Intervention Nutrition Prescription:: 1740-3321 calories, 55-65 g protein, 0398-0860 ml fluid - Food / Nutrient Delivery Interventions Nutrition support ordered as / adjusted to:: Rec [employer] assessment prior to advancement of PO diet. Once pt PEG replaced and able to be utilized for feedings rec Jevity 1.5 250 ml bolus feed via PEG 4x/day with 90 ml H2O flush before and after each feed to provide 1500 calories, 64 g protein, and 1480 ml total free fluid per day. Nutrition education provided?: Yes - MNT Monitoring Further MNT monitoring and evaluation required?: Yes MNT Follow-up in:: 1-2 days - Please call RDN at [phone] as needed.
--- NOTE | 2020-06-09 14:50 | PN_ITS ---
Patient Problems: Active and Suspected Problems UTI (urinary tract infection) (Acute) Delirium (Acute) Subjective: I was called this morning because the patient had pulled out her Hdez in her PEG tube. A Hdez was replaced in her urinary tract and a Hdez was placed in the area of the PEG tube to maintain that opening so a new PEG can be placed by general surgery. General surgery consult placed. Patient is following commands but not much interactive per report from the nursing staff who had a discussion with the niece patient has schizophrenia and mild MRDD at baseline. Vitals/I&O's: Vital Signs Temp Pulse Resp BP Pulse Ox 98.6 F 78 20 H 152/79 H 93 06/09/20 12:38 06/09/20 13:08 06/09/20 13:08 06/09/20 12:38 06/09/20 12:38 Oxygen Delivery Method Room Air Weight: 59 kg Body Mass Index (BMI) 23.8 Finger Stick Blood Glucose 98 Intake and Output for Last 24 Hours 06/07/20 06/08/20 06/09/20 23:59 23:59 23:59 Intake Total 515 / 515 1385 / 1385 Output Total 375 / 375 Balance 515 / 515 1010 / 1010 General: Alert, Cooperative, No apparent distress, - - Upper middle-aged white female lying in bed appears much older than stated age, somewhat of a disheveled appearance, but able to interact off to follow commands and was noncommunicative with me this morning, significant tardive dyskinesia noted HEENT: Atraumatic, PERRLA, EOMI, Normocephalic, EAC Clear, - - Significant hirsutism Oral: Moist Mucosa, No Gingival or Mucosal Lesions/ Ulcerations, - - Repetitive lip smacking Neck: Supple, No JVD, Trachea Midline, Thyroid Normal Size and Texture Lungs: Clear to auscultation, Normal air movement, No rhonchi, No wheeze, No rales Cardiovascular: Regular rate, Regular Rhythm, Normal S1, Normal S2, No murmurs, No Ectopic Activity, No rub noted, No Gallop Abdomen: Bowel Sounds Present, Soft, Non Tender, Non-Distended Extremities: No clubbing, No cyanosis, No edema, Capillary Refill Less than 3 Seconds, Peripheral Pulses Normal Musculoskeletal: No Tenderness to Palpation of Joints or Extremities, No Muscle Wasting, Arthritic Changes, Cachexia, - - Seems to have some contractures Lymphatic: No Cervical, Supraclavicular, or Inguinal Adenopathy Neurological: Cranial nerves II-XII grossly intact, - - Has evidence of tardive dyskinesia Psych/Mental Status: - - Follows commands but not really communicative, currently calm, nursing at bedside Microbiology Past 72 Hours 06/08/20 11:43 Interface Orders Urine Culture - Preliminary GNR lactose still operator batch or continuous 06/07/20 02:00 Mucosa - Nasopharyngeal SARS-CoV-2 Antigen (Rapid) - Final Laboratory Results 06/08/20 11:43: Urine Color Yellow, Urine Clarity Turbid, Urine pH 6.0, Ur Specific [place] 1.025, Urine Protein 30 H, Urine Glucose (UA) Normal, Urine Ketones 15 H, Urine Occult Blood 25 H, Urine Nitrite Positive H, Urine Bilirubin Negative, Urine Urobilinogen 1 H, Ur Leukocyte Esterase 500 H, Urine RBC 0 SEEN, Urine WBC 50-100 SEEN, Ur Squamous Epith Cells 0 SEEN, Calcium Oxalate Crystal 2+, Urine Bacteria 4+, Urine Mucus 0 SEEN 06/08/20 15:54: POC Glucose 98 06/08/20 18:07: WBC 7.4, RBC 4.48, Hgb 12.1, Hct 39.4, MCV 87.9, MCH 27.0, MCHC 30.7 L, RDW Std Deviation 46.6 H, RDW Coeff of Jes[place] 14.6, Plt Count 295, MPV 11.0, Immature Gran % (Auto) 0.300, Neut % (Auto) 75.0 H, Lymph % (Auto) 14.8 L, [place] % (Auto) 9.3, Eos % (Auto) 0.1, Baso % (Auto) 0.5, Absolute Neuts (auto) 5.6, Absolute Lymphs (auto) 1.10, Nucleated RBC % 0 06/08/20 18:07: Sodium 144, Potassium 4.2, Chloride 110 H, Carbon Dioxide 26.0, Anion Gap 8, BUN 34 H, Creatinine 0.64, Estim Creat Clear Calc 43.77, Est GFR (MDRD) Af Amer 120, Est GFR (MDRD) Non-Af 99, BUN/Creatinine Ratio 53.4 H, Glucose 129 H, Calcium 8.5 06/08/20 18:07: Sodium 144, Potassium 4.2, Chloride 110 H, Carbon Dioxide 25.0, Anion Gap 9, BUN 35 H, Creatinine 0.64, Estim Creat Clear Calc 43.77, Est GFR (MDRD) Af Amer 119, Est GFR (MDRD) Non-Af 99, BUN/Creatinine Ratio 54.7 H, Glucose 131 H, Calcium 8.5, Total Bilirubin 0.20, AST 13 L, ALT 16, Alkaline Phosphatase 111, Troponin I < 0.015, Total Protein 6.7, Albumin 2.9 L, Globulin 3.8, Albumin/Globulin Ratio 0.8 L, TSH 0.36 06/08/20 18:07: Magnesium 2.2 06/08/20 19:35: Ammonia Cancelled 06/08/20 20:38: Ammonia 29.0 06/08/20 23:05: POC Glucose 249 H 06/09/20 06:03: POC Glucose 82 06/09/20 06:10: WBC 7.4, RBC 4.38, Hgb 11.8 L, Hct 39.0, MCV 89.0, MCH 26.9 L, MCHC 30.3 L, RDW Std Deviation 47.3 H, RDW Coeff of [place] 14.6, Plt Count 290, MPV 10.7, Immature Gran % (Auto) 0.300, Neut % (Auto) 72.9 H, Lymph % (Auto) 16.6 L, [place] % (Auto) 9.6, Eos % (Auto) 0.1, Baso % (Auto) 0.5, Absolute Neuts (auto) 5.4, Absolute Lymphs (auto) 1.22, Nucleated RBC % 0 06/09/20 06:10: Sodium 143, Potassium 4.1, Chloride 112 H, Carbon Dioxide 26.0, Anion Gap 5, BUN 35 H, Creatinine 0.51 L, Estim Creat Clear Calc 43.77, Est GFR (MDRD) Af Amer 157, Est GFR (MDRD) Non-Af 129, BUN/Creatinine Ratio 69.2 H, Glucose 89, Calcium 8.4 L, Phosphorus 2.9, Folate 25.60, TSH 0.46 06/09/20 06:10: Vitamin B12 Pending Current Medications Acetaminophen (Acetaminophen 325 Mg Tablet) 650 mg PO Q6H PRN PRN PRN Reason: Pain Score 1-10/Temp > 100.7 F Al Hydroxide/Mg Hydroxide (Mag Hydrox/Al Hydrox/Simeth 30 Ml Udc) 30 ml GT Q6H PRN PRN PRN Reason: Gastric Burning Albuterol Sulfate (Albuterol 2.5 Mg/3 Ml Vial.Neb.) 2.5 mg INHALATION Q2H PRN PRN PRN Reason: Shortness of Breath/Wheezing Albuterol Sulfate (Albuterol 2.5 Mg/3 Ml Vial.Neb.) 2.5 mg INHALATION Q6HWA.RT BLESSING Last Admin: 06/09/20 12:52 Dose: 2.5 mg Documented by: Atorvastatin Calcium (Atorvastatin Calcium 10 Mg Tablet) 5 mg GT QHS BLESSING Benztropine Mesylate (Benztropine 2 Mg Tablet) 1 mg GT BID COUNT [facility]CLUDES [facility] Last Admin: 06/09/20 11:16 Dose: Not Given Documented by: Bisacodyl (Bisacodyl 10 Mg Suppository) 10 mg RC DAILY PRN PRN PRN Reason: Constipation Budesonide (Budesonide Respules 0.5 Mg/2 Ml Ampul.Neb.) 0.5 mg INHALATION Q12H.RT COUNT INCLUDES THE [facility] Calamine/Phenol (Menthol/Lanolin/Calamine/Znox 113 Gm Tube) 1 applic TOPICAL BID COUNT INCLUDES THE [facility]; Protocol Last Admin: 06/09/20 12:35 Dose: Not Given Documented by: Calcium/Vitamin D (Calcium Carb/Vitamin D 1 Tablet Tablet) 1 tablet GT BID COUNT INCLUDES [facility] Last Admin: 06/09/20 11:17 Dose: Not Given Documented by: Dextrose (Dextrose 50%-Water 25 Gm/50 Ml Disp.Syrin) 0 gm IV X1 PRN; Protocol PRN Reason: Hypoglycemia Enteral Nutritional Formula (Jevity 1.5. 1,000 Ml Bottle) 250 ml GT ACHS COUNT INCLUDES [facility] Last Admin: 06/09/20 11:17 Dose: Not Given Documented by: Gabapentin (Gabapentin 100 Mg Capsule) 100 mg GT TIDCM COUNT INCLUDES [facility] Last Admin: 06/09/20 12:34 Dose: Not Given Documented by: Glucagon (Glucagon 1 Mg/Ml Syringe) 1 mg IM .X1 PRN PRN Reason: Hypoglycemia Ceftriaxone Sodium (Rocephin) 1 gm in 50 mls @ 100 mls/hr IV Q24H COUNT INCLUDES [facility] Last Infusion: 06/08/20 22:45 Dose: Infused Documented by: Sodium Chloride () 1,000 mls @ 75 mls/hr IV .[id number] COUNT INCLUDES THE [facility] Last Admin: 06/09/20 09:10 Dose: 75 mls/hr Documented by: Insulin Human Lispro (Insulin Lispro 100 Unit/Ml Insuln.Pen) 0 unit SC Q6 COUNT INCLUDES [facility]; Protocol Last Admin: 06/09/20 12:34 Dose: Not Given Documented by: Lactulose (Lactulose 20 Gm/30 Ml Udc) 10 gm GT BID COUNT INCLUDES [facility] Last Admin: 06/09/20 11:17 Dose: Not Given Documented by: Lansoprazole (Lansoprazole 15 Mg Capsule.Dr) 15 mg GT DAILY COUNT INCLUDES [facility] Last Admin: 06/09/20 11:16 Dose: Not Given Documented by: Lisinopril (Lisinopril 40 Mg Tablet) 40 mg GT DAILY COUNT INCLUDES [facility] Last Admin: 06/09/20 11:17 Dose: Not Given Documented by: Multivitamins (Multivitamins,Therapeutic Tablet) 1 tablet GT DAILY COUNT INCLUDES THE [facility] Last Admin: 06/09/20 11:16 Dose: Not Given Documented by: Nitroglycerin (Nitroglycerin (Inpatient Use) 0.4 Mg Tab.Subl) 0.4 mg SL Q5M PRN PRN Reason: CARDIAC/CHEST PAIN Nystatin (Nystatin Powder 15gm Bottle) 1 applic TOPICAL BID COUNT INCLUDES [facility]; Protocol Last Admin: 06/09/20 12:35 Dose: 1 applic Documented by: Olanzapine (Olanzapine 10 Mg Tablet) 15 mg GT QHS COUNT INCLUDES [facility] Oxybutynin Chloride (Oxybutynin 5 Mg Tablet) 10 mg GT DAILY COUNT INCLUDES THE [facility] Last Admin: 06/09/20 11:16 Dose: Not Given Documented by: Prochlorperazine Edisylate (Prochlorperazine 10 Mg/2 Ml Vial) 5 mg IV Q4H PRN PRN PRN Reason: Breakthrough nausea/vomiting Rivaroxaban (Rivaroxaban 20 Mg Tablet) 20 mg GT DAILY COUNT INCLUDES THE [facility] Last Admin: 06/09/20 11:17 Dose: Not Given Documented by: Senna/Docusate Sodium (Senna/Docusate Sodium 1 Tablet) 2 tablet PO BID COUNT INCLUDES THE [facility] Last Admin: 06/09/20 11:17 Dose: Not Given Documented by: Sodium Chloride (0.9% Saline Lock 10 Ml Syringe) 10 - 40 ml IV UD PRN PRN Reason: SALINE FLUSH Last Admin: 06/08/20 22:17 Dose: 10 ml Documented by: STROKE Vital Signs/Narrative: Vital Signs Temp Pulse Resp BP Pulse Ox 06/09/20 13:08 78 20 H 06/09/20 12:38 98.6 F 90 27 H 152/79 H 93 Medical Necessity - Tobacco Use Smoking Status: Unknown if ever smoked Assessment/Plan All Active Problems UTI (urinary tract infection) (Acute) Delirium (Acute) Aspiration pneumonia (Resolved) Acute cholecystitis/UTI -GNR lactose still operator batch or continuous with greater than 100,000 CFU's per mL noted on culture -Continue ceftriaxone -We will treat for total of 3 days Acute metabolic encephalopathy -Likely related to urinary tract infection -Continue antibiotics -Seems to be following commands today although not interactive -Per nursing discussion with family patient has a history of schizophrenia and MRDD but was fairly high functioning -There is plan for [facility] psych placement on Thursday Self removal of G-tube -Hdez in place to maintain patency -General surgery consulted for replacement -Continue IV fluids until G-tube can be replaced and nutrition can be reinstituted Paroxysmal atrial fibrillation -Continue Xarelto -Heart rates controlled -Patient is currently in sinus rhythm -No need for telemetry DM-2 -At baseline patient is on metformin via G-tube -Hold metformin -Continue SSI Hypertension -Patient is on lisinopril 40 mg daily at baseline -With G-tube out will start enalaprilat 1.25 every 6 hours until G-tube can be replaced and utilized for enteral medications Hyperlipidemia -Continue atorvastatin Urinary incontinence -Continue Ditropan Achalasia/GERD -Continue lansoprazole -Has history of aspiration pneumonias from achalasia and therefore PEG tube has been placed -Restart TF via PEG when replaced by general surgery Schizophrenia -Continue Cogentin -Continue Zyprexa High functioning MRDD -No current issues -Prior to placement in skilled facility patient was living with her brother and niece DVT prophylaxis -NOAC CODE STATUS -Full code Inpatient E&M: [id number] [facility] L3
--- NOTE | 2020-06-09 15:07 | NURSING ---
Pt took out taylor this morning and no void since Dr. Galvan okayed to put taylor back in. Taylor back in at this time.
[2020-06-09] MEDS: Morphine 2 MG/ML Syringe IV (15:47)
[2020-06-09] MEDS: 0.9% Saline Lock 10 ML Syringe IV ×2 (15:48→15:58)
[2020-06-09 15:51] LABS: Bedside Glucose 115 mg/dL (70-110)
[2020-06-09] MEDS: Enalaprilat 1.25 MG/ML Vial IV (15:57)
[2020-06-09 17:00] LABS: Bedside Glucose 100 mg/dL (70-110)
[2020-06-09] MEDS: Haloperidol Lactate 5 MG/ML Vial 2 MG IM (18:46)
--- NOTE | 2020-06-09 19:55 | RAD_ITS ---
INDICATION: PEG placement EXAMINATION/TECHNIQUE: X-RAY - XR Abdomen 1 View COMPARISON: 06/07/2020 FINDINGS: See impression. RAD/Abdomen Single View IMPRESSION: Injected contrast outlines mucosal of the stomach, small bowel and large bowel with no evidence of contrast extravasation. The gastrostomy tube itself is difficult to visualize and may be obscured by the intraluminal contrast. Electronically Signed: Oscar Skinner MD at 20:15 EDT Tel , Service support ,
[2020-06-09] MEDS: Menthol/Lanolin/Calamine/Znox 113 GM Tube 1 APPLIC TOPICAL (22:09)
[2020-06-09] MEDS: OLANZapine 10 MG Tablet 15 MG GT (22:09)
[2020-06-09] MEDS: Lactulose 20 GM/30 ML UDC 10 GM GT (22:09)
[2020-06-09] MEDS: Lisinopril 40 MG Tablet GT (22:09)
[2020-06-09] MEDS: Calcium Carb/Vitamin D 1 TABLET Tablet GT (22:10)
[2020-06-09] MEDS: Atorvastatin Calcium 10 MG Tablet 5 MG GT (22:10)
[2020-06-09] MEDS: Benztropine 2 MG Tablet 1 MG GT (22:10)
[2020-06-09] MEDS: Senna/Docusate Sodium 1 Tablet 2 TABLET PO (22:10)
[2020-06-09] MEDS: Ceftriaxone 1 GM/50 ML BAG IV (22:16)
[2020-06-09 23:06] LABS: Bedside Glucose 87 mg/dL (70-110)
[2020-06-10] VITALS (14 sets, daily range): BP systolic 135–171; BP diastolic 57–90; PULSE 74–93; RESP 18–26; TEMP 36.3–37.4; O2SAT 95–98
[2020-06-10] MEDS: Jevity 1.5. 1,000 ML Bottle 250 ML GT ×4 (06:26→21:18)
[2020-06-10 06:41] LABS: Absolute Neutrophil Count 4.2 X10^3/uL (2.0-7.7); Basophil# 0.03 X10^3/uL; Basophil% 0.5 % (0-1); Hematocrit 37.5 % (37-47); Hemoglobin 11.4 g/dL (12.0-15.0); Lymphocyte % 14.5 % (19-41); Mean Corp Hgb Conc 30.4 g/dL (32-36); Mean Corpuscular Hgb 26.8 pg (27.0-32.0); Mean Corpuscular Volume 88.2 fL (81-99); Mean Platelet Vol. 10.8 fl (6.2-12.0); Monocyte# 0.48 X10^3/uL; Monocyte% 8.7 % (0-10); NRBC Flagged by Analyzer 0 % (0-5); Neutrophil # 4.19 X10^3/uL (2.7-7.7); Neutrophil % 75.9 % (47-70); Platelet Count 246 K/mm3 (150-450); RBC Distribution Width CV 14.3 % (11.6-14.6); RBC Distribution Width SD 45.8 fl (35.1-43.9); Red Blood Count 4.25 M/mm3 (4.2-5.4); White Blood Count 5.5 K/mm3 (4.4-11.0)
[2020-06-10 06:51] LABS: Bedside Glucose 92 mg/dL (70-110)
[2020-06-10] MEDS: Albuterol 2.5 MG/3 ML VIAL.NEB. INHALATION ×2 (06:56→19:08)
[2020-06-10] MEDS: Budesonide Respules 0.5 MG/2 ML AMPUL.NEB. INHALATION ×2 (07:10→19:08)
[2020-06-10 07:12] LABS: Anion Gap 4 (5-15); BUN 27 mg/dL (7-18); BUN/Creat Ratio 70.7 RATIO (10-20); Calcium,Total 8.3 mg/dL (8.5-10.1); Chloride 112 mmol/L (98-107); Creatinine, Serum 0.38 mg/dL (0.55-1.02); EST Glomerular Filtration Rate 179 mL/min (>60); Est Glom Filt Rate - Afr Amer 216 mL/min (>60); Estimated Creatinine Clearance 43.77 ml/min; Glucose 90 mg/dL (74-106); Potassium 3.9 mmol/L (3.5-5.1); Sodium Level 141 mmol/L (136-145)
[2020-06-10] MEDS: Nystatin Powder 15gm Bottle 1 APPLIC TOPICAL ×2 (08:38→21:15)
--- NOTE | 2020-06-10 10:10 | PCM.PN.BLA ---
Progress Note Progress noted to be dated 06/09/2020 I was asked to replace PEG tube. When I evaluated patient, there was no gastrostomy tube present in patient. She had been noted by the nurses to pull out all tubing connected to her. I attempted placement of 22Fr gastrostomy tube but was unsuccessful. I then attempted placemtn of 14Fr Hdez and was again unsuccessful. I placed a 10Fr Hdez catheter with some difficulty but was able aspirate back gastric contents. I obtained on contrast study by injecting 20 ml of gastrografin and obtaining a KUB. I reviewed this personally and the gastrostomy tube is in proper location. Examination of the patient's abdomen - soft and benign. I informed the nurses to that they could begin tube feedings for the patient. STROKE Vital Signs/Narrative: Vital Signs Temp Pulse Resp BP Pulse Ox 06/10/20 08:35 99.0 F 83 20 H 137/57 H 96 06/10/20 08:30 96 06/10/20 07:24 77 19 H 96
--- NOTE | 2020-06-10 10:43 | PN.SURG_ITS ---
Patient Problems: Active and Suspected Problems UTI (urinary tract infection) (Acute) Delirium (Acute) Subjective: Nurses are reporting that it is very difficult to give meds via 10Fr Hdez and request placement of PEG tube today for concern that it may clog up and this is the only form of the patient's nutrition and hydration - Physical Exam Vitals/I&O's: Vital Signs Temp Pulse Resp BP Pulse Ox 99.0 F 83 20 H 137/57 H 96 06/10/20 08:35 06/10/20 08:35 06/10/20 08:35 06/10/20 08:35 06/10/20 08:35 Oxygen Delivery Method Room Air Weight: 60.963 kg Body Mass Index (BMI) 23.8 Finger Stick Blood Glucose 98 Intake and Output for Last 24 Hours 06/08/20 06/09/20 06/10/20 23:59 23:59 23:59 Intake Total 515 / 515 2407.5 / 2407.5 0 / 0 Output Total 825 / 825 200 / 200 Balance 515 / 515 1582.5 / 1582.5 -200 / -200 General: Alert Abdomen: Soft Microbiology Past 72 Hours 06/08/20 11:43 Interface Orders Urine Culture - Final Klebsiella pneumoniae sp pneum Laboratory Results 06/09/20 11:14: POC Glucose 115 H 06/09/20 16:52: POC Glucose 100 06/09/20 22:01: POC Glucose 87 06/10/20 06:10: WBC 5.5, RBC 4.25, Hgb 11.4 L, Hct 37.5, MCV 88.2, MCH 26.8 L, MCHC 30.4 L, RDW Std Deviation 45.8 H, RDW Coeff of Jes[place] 14.3, Plt Count 246, MPV 10.8, Immature Gran % (Auto) 0.400, Neut % (Auto) 75.9 H, Lymph % (Auto) 14.5 L, [place] % (Auto) 8.7, Eos % (Auto) 0.0, Baso % (Auto) 0.5, Absolute Neuts (auto) 4.2, Absolute Lymphs (auto) 0.80 L, Nucleated RBC % 0 06/10/20 06:10: Sodium 141, Potassium 3.9, Chloride 112 H, Carbon Dioxide 25.0, Anion Gap 4 L, BUN 27 H, Creatinine 0.38 L, Estim Creat Clear Calc 43.77, Est GFR (MDRD) Af Amer 216, Est GFR (MDRD) Non-Af 179, BUN/Creatinine Ratio 70.7 H, Glucose 90, Calcium 8.3 L 06/10/20 06:23: POC Glucose 92 Current Medications Acetaminophen (Acetaminophen 325 Mg Tablet) 650 mg PO Q6H PRN PRN PRN Reason: Pain Score 1-10/Temp > 100.7 F Al Hydroxide/Mg Hydroxide (Mag Hydrox/Al Hydrox/Simeth 30 Ml Udc) 30 ml GT Q6H PRN PRN PRN Reason: Gastric Burning Albuterol Sulfate (Albuterol 2.5 Mg/3 Ml Vial.Neb.) 2.5 mg INHALATION Q2H PRN PRN PRN Reason: Shortness of Breath/Wheezing Albuterol Sulfate (Albuterol 2.5 Mg/3 Ml Vial.Neb.) 2.5 mg INHALATION Q6HWA.RT [facility] Last Admin: 06/10/20 06:56 Dose: 2.5 mg Documented by: Atorvastatin Calcium (Atorvastatin Calcium 10 Mg Tablet) 5 mg GT QHS [facility] Last Admin: 06/09/20 22:10 Dose: 5 mg Documented by: Benztropine Mesylate (Benztropine 2 Mg Tablet) 1 mg GT BID [facility] Last Admin: 06/09/20 22:10 Dose: 1 mg Documented by: Bisacodyl (Bisacodyl 10 Mg Suppository) 10 mg RC DAILY PRN PRN PRN Reason: Constipation Budesonide (Budesonide Respules 0.5 Mg/2 Ml Ampul.Neb.) 0.5 mg INHALATION Q12H.RT [facility] Last Admin: 06/10/20 07:10 Dose: 0.5 mg Documented by: Calamine/Phenol (Menthol/Lanolin/Calamine/Znox 113 Gm Tube) 1 applic TOPICAL BID [facility]; Protocol Last Admin: 06/09/20 22:09 Dose: 1 applic Documented by: Calcium/Vitamin D (Calcium Carb/Vitamin D 1 Tablet Tablet) 1 tablet GT BID [facility] Last Admin: 06/09/20 22:10 Dose: 1 tablet Documented by: Dextrose (Dextrose 50%-Water 25 Gm/50 Ml Disp.Syrin) 0 gm IV X1 PRN; Protocol PRN Reason: Hypoglycemia Enteral Nutritional Formula (Jevity 1.5. 1,000 Ml Bottle) 250 ml GT ACHS [facility] Last Admin: 06/10/20 06:26 Dose: 250 ml Documented by: Gabapentin (Gabapentin 100 Mg Capsule) 100 mg GT TIDCM [facility] Last Admin: 06/09/20 18:45 Dose: Not Given Documented by: Glucagon (Glucagon 1 Mg/Ml Syringe) 1 mg IM .X1 PRN PRN Reason: Hypoglycemia Ceftriaxone Sodium (Rocephin) 1 gm in 50 mls @ 100 mls/hr IV Q24H [facility] Last Infusion: 06/09/20 22:46 Dose: Infused Documented by: Sodium Chloride () 1,000 mls @ 75 mls/hr IV .[id number] [facility] Last Admin: 06/09/20 22:08 Dose: 75 mls/hr Documented by: Insulin Human Lispro (Insulin Lispro 100 Unit/Ml Insuln.Pen) 0 unit SC Q6 [facility]; Protocol Last Admin: 06/10/20 06:26 Dose: Not Given Documented by: Lactulose (Lactulose 20 Gm/30 Ml Udc) 10 gm GT BID [facility] Last Admin: 06/09/20 22:09 Dose: 10 gm Documented by: Lansoprazole (Lansoprazole 15 Mg Capsule.Dr) 15 mg GT DAILY [facility] Last Admin: 06/09/20 11:16 Dose: Not Given Documented by: Lisinopril (Lisinopril 40 Mg Tablet) 40 mg GT DAILY [facility] Last Admin: 06/09/20 22:09 Dose: 40 mg Documented by: Morphine Sulfate (Morphine 2 Mg/Ml Syringe) 2 mg IV Q3H PRN PRN PRN Reason: pain 6/10 or greater Last Admin: 06/09/20 15:47 Dose: 2 mg Documented by: Multivitamins (Multivitamins,Therapeutic Tablet) 1 tablet GT DAILY [facility] Last Admin: 06/09/20 11:16 Dose: Not Given Documented by: Nitroglycerin (Nitroglycerin (Inpatient Use) 0.4 Mg Tab.Subl) 0.4 mg SL Q5M PRN PRN Reason: CARDIAC/CHEST PAIN Nystatin (Nystatin Powder 15gm Bottle) 1 applic TOPICAL BID [facility]; Protocol Last Admin: 06/10/20 08:38 Dose: 1 applic Documented by: Olanzapine (Olanzapine 10 Mg Tablet) 15 mg GT QHS [facility] Last Admin: 06/09/20 22:09 Dose: 15 mg Documented by: Oxybutynin Chloride (Oxybutynin 5 Mg Tablet) 10 mg GT DAILY [facility] Last Admin: 06/09/20 11:16 Dose: Not Given Documented by: Prochlorperazine Edisylate (Prochlorperazine 10 Mg/2 Ml Vial) 5 mg IV Q4H PRN PRN PRN Reason: Breakthrough nausea/vomiting Rivaroxaban (Rivaroxaban 20 Mg Tablet) 20 mg GT DAILY [facility] Last Admin: 06/09/20 11:17 Dose: Not Given Documented by: Senna/Docusate Sodium (Senna/Docusate Sodium 1 Tablet) 2 tablet PO BID [facility] Last Admin: 06/09/20 22:10 Dose: 2 tablet Documented by: Sodium Chloride (0.9% Saline Lock 10 Ml Syringe) 10 - 40 ml IV UD PRN PRN Reason: SALINE FLUSH Last Admin: 06/09/20 15:58 Dose: 10 ml Documented by: Medical Necessity - Tobacco Use Smoking Status: Unknown if ever smoked Assessment/Plan All Active Problems UTI (urinary tract infection) (Acute) Delirium (Acute) Aspiration pneumonia (Resolved) Impression: patient pulled out gastrostomy tube, 10Fr Hdez that was placed, not adequate for medications/etc. Plan: Replacement of PEG tube Patient's POA has been counseled as to risks/benefits of the procedure, to be done under IV sedation, today. Consent obtained with two nurses as witnesses.
--- NOTE | 2020-06-10 10:52 | PCM.PN.HOSP ---
Patient Problems: Active and Suspected Problems UTI (urinary tract infection) (Acute) Delirium (Acute) Subjective: No acute issues overnight. Patient has been unable to get medications and nutrition as of yet because we have not been able to yet place a new PEG tube in the current tube is a 10 Vietnamese Hdez which is not large enough to consistently be able to give her medications and tube feed. There are plans to take her to the OR to replace her PEG today. She required 1 as needed dose of IM Haldol 2 mg as we have upon unable to give her Zyprexa with her removing her tube yesterday. But overall she has remained calm and is much more alert and interactive today. She denies any current complaints and is alert and oriented to self, place, month and year. Vitals/I&O's: Vital Signs Temp Pulse Resp BP Pulse Ox 99.0 F 83 20 H 137/57 H 96 06/10/20 08:35 06/10/20 08:35 06/10/20 08:35 06/10/20 08:35 06/10/20 08:35 Oxygen Delivery Method Room Air Weight: 60.963 kg Body Mass Index (BMI) 23.8 Finger Stick Blood Glucose 98 Intake and Output for Last 24 Hours 06/08/20 06/09/20 06/10/20 23:59 23:59 23:59 Intake Total 515 / 515 2407.5 / 2407.5 0 / 0 Output Total 825 / 825 200 / 200 Balance 515 / 515 1582.5 / 1582.5 -200 / -200 General: Alert, Oriented x3 - Self, place, month and year, unable to tell me who the president is at the current moment (when asked stated Gary then Anton and then [facility] but knew that was not correct), Cooperative, No apparent distress, Well developed, Well nourished, - - Upper middle-aged white female who appears much older than stated age, sitting up in a chair, currently calm with no behavioral abnormalities, nursing at bedside HEENT: Atraumatic, PERRLA, EOMI, Normocephalic, EAC Clear Oral: Moist Mucosa, No Gingival or Mucosal Lesions/ Ulcerations, - - Significant repetitive lipsmacking Neck: Supple, No JVD, Trachea Midline, Thyroid Normal Size and Texture Lungs: Clear to auscultation, Normal air movement, No rhonchi, No wheeze, No rales Cardiovascular: Regular rate, Regular Rhythm, Normal S1, Normal S2, No murmurs, No Ectopic Activity, No rub noted, No Gallop Abdomen: Bowel Sounds Present, Soft, Non Tender, Non-Distended, No hernias noted, - - 10 Vietnamese Dhez currently placed in opening or PEG was removed from Extremities: No clubbing, No cyanosis, No edema, Capillary Refill Less than 3 Seconds, Peripheral Pulses Normal Skin: No rashes, No breakdown Musculoskeletal: No Tenderness to Palpation of Joints or Extremities, No Muscle Wasting, Arthritic Changes Lymphatic: No Cervical, Supraclavicular, or Inguinal Adenopathy Neurological: Cranial nerves II-XII grossly intact, Neuro grossly intact, Muscle tone normal, Coordination normal Psych/Mental Status: Appropriate, Flat Affect, - - Pleasant, follows all commands, answered questions Microbiology Past 72 Hours 06/08/20 11:43 Interface Orders Urine Culture - Final Klebsiella pneumoniae sp pneum Laboratory Results 06/09/20 11:14: POC Glucose 115 H 06/09/20 16:52: POC Glucose 100 06/09/20 22:01: POC Glucose 87 06/10/20 06:10: WBC 5.5, RBC 4.25, Hgb 11.4 L, Hct 37.5, MCV 88.2, MCH 26.8 L, MCHC 30.4 L, RDW Std Deviation 45.8 H, RDW Coeff of Jesica 14.3, Plt Count 246, MPV 10.8, Immature Gran % (Auto) 0.400, Neut % (Auto) 75.9 H, Lymph % (Auto) 14.5 L, Leslie % (Auto) 8.7, Eos % (Auto) 0.0, Baso % (Auto) 0.5, Absolute Neuts (auto) 4.2, Absolute Lymphs (auto) 0.80 L, Nucleated RBC % 0 06/10/20 06:10: Sodium 141, Potassium 3.9, Chloride 112 H, Carbon Dioxide 25.0, Anion Gap 4 L, BUN 27 H, Creatinine 0.38 L, Estim Creat Clear Calc 43.77, Est GFR (MDRD) Af Amer 216, Est GFR (MDRD) Non-Af 179, BUN/Creatinine Ratio 70.7 H, Glucose 90, Calcium 8.3 L 06/10/20 06:23: POC Glucose 92 Current Medications Acetaminophen (Acetaminophen 325 Mg Tablet) 650 mg PO Q6H PRN PRN PRN Reason: Pain Score 1-10/Temp > 100.7 F Al Hydroxide/Mg Hydroxide (Mag Hydrox/Al Hydrox/Simeth 30 Ml Udc) 30 ml GT Q6H PRN PRN PRN Reason: Gastric Burning Albuterol Sulfate (Albuterol 2.5 Mg/3 Ml Vial.Neb.) 2.5 mg INHALATION Q2H PRN PRN PRN Reason: Shortness of Breath/Wheezing Albuterol Sulfate (Albuterol 2.5 Mg/3 Ml Vial.Neb.) 2.5 mg INHALATION Q6HWA.RT [facility] Last Admin: 06/10/20 06:56 Dose: 2.5 mg Documented by: Atorvastatin Calcium (Atorvastatin Calcium 10 Mg Tablet) 5 mg GT QHS [facility] Last Admin: 06/09/20 22:10 Dose: 5 mg Documented by: Benztropine Mesylate (Benztropine 2 Mg Tablet) 1 mg GT BID [facility] Last Admin: 06/09/20 22:10 Dose: 1 mg Documented by: Bisacodyl (Bisacodyl 10 Mg Suppository) 10 mg RC DAILY PRN PRN PRN Reason: Constipation Budesonide (Budesonide Respules 0.5 Mg/2 Ml Ampul.Neb.) 0.5 mg INHALATION Q12H.RT [facility] Last Admin: 06/10/20 07:10 Dose: 0.5 mg Documented by: Calamine/Phenol (Menthol/Lanolin/Calamine/Znox 113 Gm Tube) 1 applic TOPICAL BID [facility]; Protocol Last Admin: 06/09/20 22:09 Dose: 1 applic Documented by: Calcium/Vitamin D (Calcium Carb/Vitamin D 1 Tablet Tablet) 1 tablet GT BID [facility] Last Admin: 06/09/20 22:10 Dose: 1 tablet Documented by: Dextrose (Dextrose 50%-Water 25 Gm/50 Ml Disp.Syrin) 0 gm IV X1 PRN; Protocol PRN Reason: Hypoglycemia Enteral Nutritional Formula (Jevity 1.5. 1,000 Ml Bottle) 250 ml GT ACHS [facility] Last Admin: 06/10/20 06:26 Dose: 250 ml Documented by: Gabapentin (Gabapentin 100 Mg Capsule) 100 mg GT TIDCM [facility] Last Admin: 06/09/20 18:45 Dose: Not Given Documented by: Glucagon (Glucagon 1 Mg/Ml Syringe) 1 mg IM .X1 PRN PRN Reason: Hypoglycemia Ceftriaxone Sodium (Rocephin) 1 gm in 50 mls @ 100 mls/hr IV Q24H [facility] Last Infusion: 06/09/20 22:46 Dose: Infused Documented by: Sodium Chloride () 1,000 mls @ 75 mls/hr IV .[id number] [facility] Last Admin: 06/09/20 22:08 Dose: 75 mls/hr Documented by: Insulin Human Lispro (Insulin Lispro 100 Unit/Ml Insuln.Pen) 0 unit SC Q6 [facility]; Protocol Last Admin: 06/10/20 06:26 Dose: Not Given Documented by: Lactulose (Lactulose 20 Gm/30 Ml Udc) 10 gm GT BID [facility] Last Admin: 06/09/20 22:09 Dose: 10 gm Documented by: Lansoprazole (Lansoprazole 15 Mg Capsule.Dr) 15 mg GT DAILY [facility] Last Admin: 06/09/20 11:16 Dose: Not Given Documented by: Lisinopril (Lisinopril 40 Mg Tablet) 40 mg GT DAILY [facility] Last Admin: 06/09/20 22:09 Dose: 40 mg Documented by: Morphine Sulfate (Morphine 2 Mg/Ml Syringe) 2 mg IV Q3H PRN PRN PRN Reason: pain 6/10 or greater Last Admin: 06/09/20 15:47 Dose: 2 mg Documented by: Multivitamins (Multivitamins,Therapeutic Tablet) 1 tablet GT DAILY [facility] Last Admin: 06/09/20 11:16 Dose: Not Given Documented by: Nitroglycerin (Nitroglycerin (Inpatient Use) 0.4 Mg Tab.Subl) 0.4 mg SL Q5M PRN PRN Reason: CARDIAC/CHEST PAIN Nystatin (Nystatin Powder 15gm Bottle) 1 applic TOPICAL BID [facility]; Protocol Last Admin: 06/10/20 08:38 Dose: 1 applic Documented by: Olanzapine (Olanzapine 10 Mg Tablet) 15 mg GT QHS [facility] Last Admin: 06/09/20 22:09 Dose: 15 mg Documented by: Oxybutynin Chloride (Oxybutynin 5 Mg Tablet) 10 mg GT DAILY [facility] Last Admin: 06/09/20 11:16 Dose: Not Given Documented by: Prochlorperazine Edisylate (Prochlorperazine 10 Mg/2 Ml Vial) 5 mg IV Q4H PRN PRN PRN Reason: Breakthrough nausea/vomiting Rivaroxaban (Rivaroxaban 20 Mg Tablet) 20 mg GT DAILY [facility] Last Admin: 06/09/20 11:17 Dose: Not Given Documented by: Senna/Docusate Sodium (Senna/Docusate Sodium 1 Tablet) 2 tablet PO BID [facility] Last Admin: 06/09/20 22:10 Dose: 2 tablet Documented by: Sodium Chloride (0.9% Saline Lock 10 Ml Syringe) 10 - 40 ml IV UD PRN PRN Reason: SALINE FLUSH Last Admin: 06/09/20 15:58 Dose: 10 ml Documented by: STROKE Vital Signs/Narrative: Vital Signs Temp Pulse Resp BP Pulse Ox 06/10/20 08:35 99.0 F 83 20 H 137/57 H 96 06/10/20 08:30 96 06/10/20 07:24 77 19 H 96 Medical Necessity - Tobacco Use Smoking Status: Unknown if ever smoked Assessment/Plan All Active Problems UTI (urinary tract infection) (Acute) Delirium (Acute) Aspiration pneumonia (Resolved) Klebsiella pneumoniae acute cystitis/UTI -Has been on ceftriaxone since admission -Sensitivities show that the organism is sensitive to Klebsiella -DC Hdez -Today is day 2 of 3 for antibiotics Acute metabolic encephalopathy -Overall seems much better -May not need Bee psych at discharge -She has had very minimal behavioral issues since admission Self removal of G-tube -General surgery is to take the patient to surgery today replace PEG as she was unable to do so at the bedside -We will restart enteral meds and tube feeds as soon as admitted by general surgery -Last dose of Xarelto was 06/08/2020 Paroxysmal atrial fibrillation -Continue Xarelto once we are able to use the PEG tube -Heart rates main -Patient remains in normal sinus rhythm -No need for telemetry DM-2 -At baseline patient is on metformin via G-tube -Hold metformin -Continue SSI Hypertension -Patient is on lisinopril 40 mg daily at baseline -With G-tube out will continue enalaprilat 1.25 every 6 hours until G-tube can be replaced and utilized for enteral medications Hyperlipidemia -Continue atorvastatin once G-tube may be utilized Urinary incontinence -Continue Ditropan G-tube may be utilized Achalasia/GERD -Continue lansoprazole G-tube may be utilized -Has history of aspiration pneumonias from achalasia and therefore PEG tube has been placed -Restart TF via PEG when replaced by general surgery Schizophrenia -Continue Cogentin as soon as PEG is able to be utilized -Continue Zyprexa as soon as PEG is able to be utilized -Add as needed IM Haldol for the short-term until we are able to utilize her PEG for enteral medications Tardive dyskinesia -Likely related to long-term antipsychotic medication utilization High functioning MRDD -No current issues -Prior to placement in skilled facility patient was living with her brother and niece DVT prophylaxis -NOAC CODE STATUS -Full code Dispo -Patient should complete antibiotics for urinary tract infection tomorrow-day 3 of 3 for ceftriaxone -Initial plan was to admit patient to [facility] psych but her overall behavior has improved significantly since her UTI has been treated -She may be able to discharge back to her correction facility as soon as tomorrow -PEG tube being replaced today and will reinitiate enteral medications and tube feed as soon as permitted by general surgery Inpatient E&M: [id number] [facility] L3
[2020-06-10] MEDS: 0.9% Normal Saline 1,000 ML 75 ML IV ×2 (11:15→14:33)
--- NOTE | 2020-06-10 12:07 | OP.CCLET_ITS ---
06/10/2020 Jose Brown [address] [place] [address] Re : Upper GI endoscopy procedure for Arelis Mendoza Dear Dr. Brown This procedure was performed on Wednesday, June 10, 2020. My impressions and recommendations are as follows: Impressions : - Normal first portion of the duodenum and second portion of the duodenum. - Gastritis. - GERD, as evident by free flow of gastric contents into the esophagus. - An externally removable PEG placement was successfully completed. - No specimens collected. Recommendations : - [facility]. - Resume previous diet. - Continue present medications. My findings are described in the full procedure note, which is enclosed. If I can be of further assistance, please feel free to contact me at Doctor phone number(s): , Work: . Sincerely, MD Annette Roth MD 06/10/2020 12:07:20 PM This report has been signed electronically.
--- NOTE | 2020-06-10 12:07 | OP.EGD_ITS ---
Patient Name: Arelis Mendoza Procedure Date: 06/10/2020 11:24 AM Date of : 1955 Age: 65 Procedure: Upper GI endoscopy Indications: Replace PEG tube, Replace PEG tube because existing gastrostomy tube came out Providers: Annette Fowler MD Medicines: See the Anesthesia note for documentation of the administered medications Patient Profile: Refer to note in patient chart for documentation of history and physical. Complications: No immediate complications. Procedure: Pre-Anesthesia Assessment: - see anesthesia note After obtaining informed consent, the endoscope was passed under direct vision. Throughout the procedure, the patient's blood pressure, pulse, and oxygen saturations were monitored continuously. The Endoscope was introduced through the mouth, and advanced to the second part of duodenum. The upper GI endoscopy was accomplished without difficulty. The patient tolerated the procedure well. Moderate Sedation: See anesthesia note Scope In: 11:30:41 AM Scope Out: 11:53:51 AM Total Procedure Duration Time 0 hours 23 minutes 10 seconds Findings: The first portion of the duodenum and second portion of the duodenum were normal. Diffuse mild inflammation characterized by congestion (edema), friability, granularity and mucus was found in the entire examined stomach. Gastroesophageal reflux is evident by free flow of gastric contents in the lower third of the esophagus. The patient was placed in the supine position for PEG placement. The stomach was insufflated to appose gastric and abdominal rizzo. A site was located in the body of the stomach with excellent transillumination for placement. The abdominal wall was marked and prepped in a sterile manner. The area was anesthetized with 1 mL of 0.5% lidocaine. The trocar needle was introduced through the abdominal wall and into the stomach under direct endoscopic view. A snare was introduced through the endoscope and opened in the gastric lumen. The guide wire was passed through the trocar and into the open snare. The snare was closed around the guide wire. The endoscope and snare were removed, pulling the wire out through the mouth. A skin incision was made at the site of needle insertion. The externally removable 20 Fr EndoVive Safety gastrostomy tube was lubricated. The G-tube was tied to the guide wire and pulled through the mouth and into the stomach. The trocar needle was removed, and the gastrostomy tube was pulled out from the stomach through the skin. The external bumper was attached to the gastrostomy tube, and the tube was cut to remove the guide wire. The final position of the gastrostomy tube was confirmed by relook endoscopy, and skin marking noted to be 3.5 cm at the external bumper. The final tension and compression of the abdominal wall by the PEG tube and external bumper were checked and revealed that the bumper was moderately tight and mildly deforming the skin at level 4. The feeding tube was capped, and the tube site cleaned and dressed. Impression: - Normal first portion of the duodenum and second portion of the duodenum. - Gastritis. - GERD, as evident by free flow of gastric contents into the esophagus. - An externally removable PEG placement was successfully completed. - No specimens collected. Recommendation: - [facility]. - Resume previous diet. - Continue present medications. Procedure Code(s): --- Professional --- 09139, Esophagogastroduodenoscopy, flexible, transoral; with directed placement of percutaneous gastrostomy tube Diagnosis Code(s): --- Professional --- K29.70, Gastritis, unspecified, without bleeding K21.9, Gastro-esophageal reflux disease without esophagitis Z43.1, Encounter for attention to gastrostomy CPT copyright 2017 [employer] [place] [employer]. All rights reserved. The codes documented in this report are preliminary and upon perioperative manager review may be revised to meet current compliance requirements. MD Annette Roth MD 06/10/2020 12:07:20 PM This report has been signed electronically. Number of Addenda: 0 Note Initiated On: 06/10/2020 11:24 AM
--- NOTE | 2020-06-10 12:08 | PCM.PN.BLA ---
Progress Note 20Fr PEG tube replacement can start low flow feedings - about 30 cc per hour. STROKE Vital Signs/Narrative: Vital Signs Temp Pulse Resp BP Pulse Ox 06/10/20 12:03 98.9 F 83 18 138/70 H 96 06/10/20 08:35 99.0 F 83 20 H 137/57 H 96 06/10/20 08:30 96
[2020-06-10] MEDS: Lactulose 20 GM/30 ML UDC 10 GM GT ×2 (12:41→21:14)
[2020-06-10] MEDS: Benztropine 2 MG Tablet 1 MG GT ×2 (12:42→21:15)
[2020-06-10] MEDS: Gabapentin 100 MG Capsule GT ×2 (12:43→17:45)
[2020-06-10] MEDS: Calcium Carb/Vitamin D 1 TABLET Tablet GT ×2 (12:44→21:16)
[2020-06-10] MEDS: Lansoprazole 15 MG Capsule.DR GT (12:44)
[2020-06-10] MEDS: Lisinopril 40 MG Tablet GT (12:45)
[2020-06-10] MEDS: Oxybutynin 5 MG Tablet 10 MG GT (12:45)
[2020-06-10] MEDS: Multivitamins,Therapeutic Tablet 1 TABLET GT (12:46)
[2020-06-10] MEDS: Menthol/Lanolin/Calamine/Znox 113 GM Tube 1 APPLIC TOPICAL ×2 (12:46→21:14)
[2020-06-10] MEDS: Senna/Docusate Sodium 1 Tablet 2 TABLET PO ×2 (12:46→21:16)
[2020-06-10] MEDS: Rivaroxaban 20 MG Tablet GT (12:47)
[2020-06-10 13:25] LABS: Bedside Glucose 146 mg/dL (70-110)
--- NOTE | 2020-06-10 14:12 | CPS ---
patient does well with blow-by
[2020-06-10] MEDS: 0.9% Saline Lock 10 ML Syringe IV (14:24)
[2020-06-10] MEDS: Morphine 2 MG/ML Syringe IV (14:24)
[2020-06-10 17:56] LABS: Bedside Glucose 132 mg/dL (70-110)
[2020-06-10] MEDS: amLODIPine 5 MG Tablet PO (21:14)
[2020-06-10] MEDS: Atorvastatin Calcium 10 MG Tablet 5 MG GT (21:15)
[2020-06-10] MEDS: OLANZapine 10 MG Tablet 15 MG GT (21:17)
[2020-06-10] MEDS: Ceftriaxone 1 GM/50 ML BAG IV (21:17)
[2020-06-10] MEDS: Acetaminophen 325 MG Tablet 650 MG PO (21:29)
[2020-06-10] MEDS: Insulin Lispro 100 UNIT/ML INSULN.PEN SC (23:53)
--- NOTE | 2020-06-10 23:53 | RAD_ITS ---
STUDY: X-RAY CHEST REASON FOR EXAM: Female, 65 years old. Aspiration TECHNIQUE: Single AP portable view of the chest. COMPARISON: 06/07/2020. FINDINGS: There is asymmetrically positioned breast tissue overlying the left lower lung field. This probably accounts for the asymmetric density seen in this region. Left lower lobe pneumonia is thought to be much less likely. There are no confluent pulmonary infiltrates. There is no demonstrated pleural abnormality. Normal size heart. Normal mediastinum and mike. Normal visualized aortic arch and descending thoracic aorta. There are no demonstrated acute fractures or destructive bone lesions. There is no demonstrated abnormality of the visualized soft tissue structures of the upper abdomen. RAD/Chest 1 View (Portable) IMPRESSION: No evidence for acute cardiopulmonary pathology. Electronically Signed: Marc Chase MD at 1:16 EDT , Service support ,
[2020-06-11] VITALS (9 sets, daily range): BP systolic 121–154; BP diastolic 65–94; PULSE 80–95; RESP 16–26; TEMP 36.9–38.1; O2SAT 93–98
[2020-06-11 00:01] LABS: Bedside Glucose 166 mg/dL (70-110)
[2020-06-11] MEDS: 0.9% Normal Saline 1,000 ML 75 ML IV (06:29)
[2020-06-11] MEDS: Acetaminophen 325 MG Tablet 650 MG PO (06:29)
[2020-06-11] MEDS: Jevity 1.5. 1,000 ML Bottle 250 ML GT ×4 (06:30→23:14)
[2020-06-11 06:55] LABS: Bedside Glucose 114 mg/dL (70-110)
[2020-06-11] MEDS: Albuterol 2.5 MG/3 ML VIAL.NEB. INHALATION ×2 (07:32→19:40)
[2020-06-11] MEDS: Budesonide Respules 0.5 MG/2 ML AMPUL.NEB. INHALATION ×2 (07:32→19:40)
[2020-06-11 08:32] LABS: Vitamin B12 629 pg/mL (211-911)
[2020-06-11] MEDS: Calcium Carb/Vitamin D 1 TABLET Tablet GT ×2 (08:55→23:07)
[2020-06-11] MEDS: Oxybutynin 5 MG Tablet 10 MG GT (08:55)
[2020-06-11] MEDS: Benztropine 2 MG Tablet 1 MG GT ×2 (08:56→23:07)
[2020-06-11] MEDS: Gabapentin 100 MG Capsule GT ×2 (08:56→10:51)
[2020-06-11] MEDS: Lisinopril 40 MG Tablet GT (08:57)
[2020-06-11] MEDS: Lansoprazole 15 MG Capsule.DR GT (08:58)
[2020-06-11] MEDS: Menthol/Lanolin/Calamine/Znox 113 GM Tube 1 APPLIC TOPICAL ×2 (08:58→22:58)
[2020-06-11] MEDS: Multivitamins,Therapeutic Tablet 1 TABLET GT (08:59)
[2020-06-11] MEDS: Nystatin Powder 15gm Bottle 1 APPLIC TOPICAL ×2 (08:59→22:58)
[2020-06-11] MEDS: Rivaroxaban 20 MG Tablet GT (09:00)
[2020-06-11] MEDS: amLODIPine 5 MG Tablet PO (09:01)
[2020-06-11] MEDS: Insulin Lispro 100 UNIT/ML INSULN.PEN SC (10:48)
[2020-06-11 10:50] LABS: Bedside Glucose 154 mg/dL (70-110)
--- NOTE | 2020-06-11 12:05 | PCM.PN.HOSP ---
Patient Problems: Active and Suspected Problems UTI (urinary tract infection) (Acute) Delirium (Acute) Subjective: complains of itching around ears and difficulty hearing. complains of dysuria. Vitals/I&O's: Vital Signs Temp Pulse Resp BP Pulse Ox 37.0 C 80 20 H 144/66 H 94 06/11/20 08:49 06/11/20 08:49 06/11/20 08:49 06/11/20 08:49 06/11/20 08:49 Oxygen Delivery Method Room Air Weight: 63.185 kg Body Mass Index (BMI) 23.8 Finger Stick Blood Glucose 98 Intake and Output for Last 24 Hours 06/09/20 06/10/20 06/11/20 23:59 23:59 23:59 Intake Total 2407.5 / 2407.5 2651.25 / 2651.25 1770 / 1770 Output Total 825 / 825 1150 / 1150 400 / 400 Balance 1582.5 / 1582.5 1501.25 / 1501.25 1370 / 1370 General: Alert, No apparent distress HEENT: Atraumatic, Normocephalic, TM's Clear, - - wax in ear canals Neck: No Nodes, Thyroid Normal Size and Texture Lungs: Clear to auscultation, Normal air movement, No rhonchi, No wheeze, No rales Cardiovascular: Regular rate, Regular Rhythm, Normal S1, Normal S2, No murmurs Abdomen: Bowel Sounds Present, Soft, Non Tender, Non-Distended, No Hepato-splenomegaly, - - no vaginal discharge (female nurse present) Extremities: No edema, No Calf Tenderness Psych/Mental Status: Normal Affect, Appropriate Microbiology Past 72 Hours 06/08/20 11:43 Interface Orders Urine Culture - Final Klebsiella pneumoniae sp pneum Laboratory Results 06/09/20 06:10: Vitamin B12 629 06/10/20 13:20: POC Glucose 146 H 06/10/20 17:28: POC Glucose 132 H 06/10/20 23:51: POC Glucose 166 H 06/11/20 06:27: POC Glucose 114 H 06/11/20 10:46: POC Glucose 154 H Current Medications Acetaminophen (Acetaminophen 325 Mg Tablet) 650 mg PO Q6H PRN PRN PRN Reason: Pain Score 1-10/Temp > 100.7 F Last Admin: 06/11/20 06:29 Dose: 650 mg Documented by: Al Hydroxide/Mg Hydroxide (Mag Hydrox/Al Hydrox/Simeth 30 Ml Udc) 30 ml GT Q6H PRN PRN PRN Reason: Gastric Burning Albuterol Sulfate (Albuterol 2.5 Mg/3 Ml Vial.Neb.) 2.5 mg INHALATION Q2H PRN PRN PRN Reason: Shortness of Breath/Wheezing Albuterol Sulfate (Albuterol 2.5 Mg/3 Ml Vial.Neb.) 2.5 mg INHALATION Q6HWA.RT [facility] Last Admin: 06/11/20 07:32 Dose: 2.5 mg Documented by: Amlodipine Besylate (Amlodipine 5 Mg Tablet) 5 mg PO DAILY [facility] Last Admin: 06/11/20 09:01 Dose: 5 mg Documented by: Atorvastatin Calcium (Atorvastatin Calcium 10 Mg Tablet) 5 mg GT QHS [facility] Last Admin: 06/10/20 21:15 Dose: 5 mg Documented by: Benztropine Mesylate (Benztropine 2 Mg Tablet) 1 mg GT BID [facility] Last Admin: 06/11/20 08:56 Dose: 1 mg Documented by: Bisacodyl (Bisacodyl 10 Mg Suppository) 10 mg RC DAILY PRN PRN PRN Reason: Constipation Budesonide (Budesonide Respules 0.5 Mg/2 Ml Ampul.Neb.) 0.5 mg INHALATION Q12H.RT [facility] Last Admin: 06/11/20 07:32 Dose: 0.5 mg Documented by: Calamine/Phenol (Menthol/Lanolin/Calamine/Znox 113 Gm Tube) 1 applic TOPICAL BID [facility]; Protocol Last Admin: 06/11/20 08:58 Dose: 1 applic Documented by: Calcium/Vitamin D (Calcium Carb/Vitamin D 1 Tablet Tablet) 1 tablet GT BID [facility] Last Admin: 06/11/20 08:55 Dose: 1 tablet Documented by: Dextrose (Dextrose 50%-Water 25 Gm/50 Ml Disp.Syrin) 0 gm IV X1 PRN; Protocol PRN Reason: Hypoglycemia Enteral Nutritional Formula (Jevity 1.5. 1,000 Ml Bottle) 250 ml GT ACHS BLESSING Gabapentin (Gabapentin 100 Mg Capsule) 100 mg GT TIDCM [facility] Last Admin: 06/11/20 10:51 Dose: 100 mg Documented by: Glucagon (Glucagon 1 Mg/Ml Syringe) 1 mg IM .X1 PRN PRN Reason: Hypoglycemia Haloperidol Lactate (Haloperidol Lactate 5 Mg/Ml Vial) 2 mg IM Q6H PRN PRN PRN Reason: AGITATION Ceftriaxone Sodium (Rocephin) 1 gm in 50 mls @ 100 mls/hr IV Q24H [facility] Last Infusion: 06/10/20 21:47 Dose: Infused Documented by: Sodium Chloride () 1,000 mls @ 75 mls/hr IV .[id number] [facility] Last Admin: 06/11/20 06:29 Dose: 75 mls/hr Documented by: Insulin Human Lispro (Insulin Lispro 100 Unit/Ml Insuln.Pen) 0 unit SC Q6 [facility]; Protocol Last Admin: 06/11/20 10:48 Dose: 2 u Documented by: Lactulose (Lactulose 20 Gm/30 Ml Udc) 10 gm GT BID [facility] Last Admin: 06/10/20 21:14 Dose: 10 gm Documented by: Lansoprazole (Lansoprazole 15 Mg Capsule.Dr) 15 mg GT DAILY [facility] Last Admin: 06/11/20 08:58 Dose: 15 mg Documented by: Lisinopril (Lisinopril 40 Mg Tablet) 40 mg GT DAILY [facility] Last Admin: 06/11/20 08:57 Dose: 40 mg Documented by: Morphine Sulfate (Morphine 2 Mg/Ml Syringe) 2 mg IV Q3H PRN PRN PRN Reason: pain 6/10 or greater Last Admin: 06/10/20 14:24 Dose: 2 mg Documented by: Multivitamins (Multivitamins,Therapeutic Tablet) 1 tablet GT DAILY [facility] Last Admin: 06/11/20 08:59 Dose: 1 tablet Documented by: Nitroglycerin (Nitroglycerin (Inpatient Use) 0.4 Mg Tab.Subl) 0.4 mg SL Q5M PRN PRN Reason: CARDIAC/CHEST PAIN Nystatin (Nystatin Powder 15gm Bottle) 1 applic TOPICAL BID [facility]; Protocol Last Admin: 06/11/20 08:59 Dose: 1 applic Documented by: Olanzapine (Olanzapine 10 Mg Tablet) 15 mg GT QHS [facility] Last Admin: 06/10/20 21:17 Dose: 15 mg Documented by: Oxybutynin Chloride (Oxybutynin 5 Mg Tablet) 10 mg GT DAILY [facility] Last Admin: 06/11/20 08:55 Dose: 10 mg Documented by: Prochlorperazine Edisylate (Prochlorperazine 10 Mg/2 Ml Vial) 5 mg IV Q4H PRN PRN PRN Reason: Breakthrough nausea/vomiting Rivaroxaban (Rivaroxaban 20 Mg Tablet) 20 mg GT DAILY [facility] Last Admin: 06/11/20 09:00 Dose: 20 mg Documented by: Senna/Docusate Sodium (Senna/Docusate Sodium 1 Tablet) 2 tablet PO BID [facility] Last Admin: 06/10/20 21:16 Dose: 2 tablet Documented by: Sodium Chloride (0.9% Saline Lock 10 Ml Syringe) 10 - 40 ml IV UD PRN PRN Reason: SALINE FLUSH Last Admin: 06/10/20 14:24 Dose: 10 ml Documented by: STROKE Vital Signs/Narrative: Vital Signs Temp Pulse Resp BP Pulse Ox 06/11/20 08:49 37.0 C 80 20 H 144/66 H 94 Medical Necessity - Tobacco Use Smoking Status: Unknown if ever smoked Assessment/Plan All Active Problems UTI (urinary tract infection) (Acute) Delirium (Acute) Aspiration pneumonia (Resolved) 1. acute encephalopathy likely multifactorial stable plan: discontinue gabapentin Bee psych eval pending 2. UTI klebsiella received CTX for 3 days change to cipro for 4 more days 3. Facial excoriations no evidence of shingles Aquaphor 4. achalasia on tube feeds 5. Chronic afib anticoagulated with rivaroban Inpatient E&M: [id number] [facility] Hosp L2
--- NOTE | 2020-06-11 12:43 | CASEMGMT ---
Social Work Note SARA placed a call to Crisis and spoke with Rochelle, requested Crisis to reevaluate pt. Rochelle requested updated clinicals be faxed. SARA faxed updated clinicals to Crisis. Madelyn Jay FAST FOOD CREW MEMBER, DAIRY HUSBANDRY WORKER
--- NOTE | 2020-06-11 12:45 | CASEMGMT ---
Social Work Note SW Received call from Rochelle at [facility] wanting to know if she can do in person assessment or by the phone. SW spoke with physician, over the phone assessment is fine. SARA updated Rochelle and provided pt's direct room number to call. SW in to speak with pt. SARA updated pt that Rochelle at [facility] will be calling her and to answer the phone. SW spoke with pt about other discharge plans. Pt confirms that she came from [facility] and would like to return at discharge. Pt states she has limited support, states she only really talks to her mother. SARA updated physician. Madelyn Jay GAS TENDER, DINKEY LOCOMOTIVE OPERATOR
--- NOTE | 2020-06-11 12:47 | CASEMGMT ---
Pt screened using [facility] Palliative Care Tool. Pt did not meet criteia.
--- NOTE | 2020-06-11 13:49 | CASEMGMT ---
Pt was cleared by crisis, and pt has indicated would like to return to [facility]. SARA called Saba, she will review information and does anticipate they will take pt back. She will need to start the precert and will let the SARA Joshi on MS3 know when pt can return. No new COVID test is needed, she had one done on 06/07/20. SARA faxed clinical information to Saba at [facility] and will await call back that pt can return. JYOTI Suarez
[2020-06-11] MEDS: Mineral Oil/Petrolatum Cr 1.75oz Bottle 1 APPLIC TOPICAL (14:30)
--- NOTE | 2020-06-11 15:10 | CASEMGMT ---
Social Work Note SARA received message from pt's Niece Cheryl asking if she can take pt home at discharge. SW in to speak with pt. Pt is alert and orientated x3. SARA informed pt that Cheryl was asking about taking pt home. Pt states she prefers to return home at discharge. SW informed pt that pt does have PEG tube feeding, family will need to be taught how to administer. Patient was provided a list of SNF providers including quality and resource use data and consistent with the patient?s preferred geographic region, medical needs, and insurance network. SARA spoke with RN. RN states she updated Cheryl that pt has PEG tube, pt will need to be fed 4 times a day and family would need to come to [facility] to get education/trained on PEG tube feeding. SARA reviewed PT/OT. Pt was min assist of two today with PT/OT. SARA placed a call back to Cheryl. SARA updated Cheryl that pt was also min assist of two with PT/OT. Cheryl states she would like to discuss taking pt home with [facility] to her father Chaz cabrales and let this worker know tomorrow what they decide. Cheryl states that while pt was at SNF, pt was cut by insurance and is not sure if they would pay for pt to return. SARA informed Cheryl that this worker can call [facility] and confirm about insurance paying. Cheryl states understanding. SARA placed a call to Saba at [facility] and updated her that pt's family is deciding on whether pt will return home with [facility] or will be returning to [facility]. Saba states that up until pt got UTI, pt was doing well. Saba states pt was cut by insurance but they did an appeal and the denial was overturned. Saba states that if pt returns to [facility] then insurance will cover SNF stay. SARA updated physician. SARA will follow up with pt's Niece Cheryl tomorrow to confirm discharge plans. Plan: Return to [facility] skilled vs Home with C Madelyn Jay DIRECTOR OF MUSIC, MAINTENANCE SHOP CLERK
[2020-06-11 16:45] LABS: Bedside Glucose 91 mg/dL (70-110)
[2020-06-11] MEDS: 0.9% Saline Lock 10 ML Syringe IV ×2 (20:26→22:58)
[2020-06-11] MEDS: Ceftriaxone 1 GM/50 ML BAG IV (22:57)
[2020-06-11] MEDS: Ciprofloxacin 250 MG Tablet PO (23:08)
[2020-06-11] MEDS: Atorvastatin Calcium 10 MG Tablet 5 MG GT (23:08)
[2020-06-11] MEDS: OLANZapine 10 MG Tablet 15 MG GT (23:09)
[2020-06-11 23:51] LABS: Bedside Glucose 96 mg/dL (70-110)
[2020-06-12 03:50] VITALS: BP 133/71; PULSE 85; RESP 22; TEMP 36.9; O2SAT 95
[2020-06-12 06:05] LABS: Bedside Glucose 113 mg/dL (70-110)
[2020-06-12] MEDS: Jevity 1.5. 1,000 ML Bottle 250 ML GT ×2 (06:14→10:42)
[2020-06-12] MEDS: Albuterol 2.5 MG/3 ML VIAL.NEB. INHALATION (07:30)
[2020-06-12 07:31] VITALS: PULSE 78; RESP 16; O2SAT 95
[2020-06-12] MEDS: Budesonide Respules 0.5 MG/2 ML AMPUL.NEB. INHALATION (07:31)
[2020-06-12] MEDS: Menthol/Lanolin/Calamine/Znox 113 GM Tube 1 APPLIC TOPICAL (08:14)
[2020-06-12] MEDS: Mineral Oil/Petrolatum Cr 1.75oz Bottle 1 APPLIC TOPICAL (08:15)
[2020-06-12] MEDS: Nystatin Powder 15gm Bottle 1 APPLIC TOPICAL (08:15)
[2020-06-12] MEDS: Oxybutynin 5 MG Tablet 10 MG GT (08:22)
[2020-06-12] MEDS: Lisinopril 40 MG Tablet GT (08:22)
[2020-06-12] MEDS: Multivitamins,Therapeutic Tablet 1 TABLET GT (08:22)
[2020-06-12] MEDS: Ciprofloxacin 250 MG Tablet PO (08:22)
[2020-06-12] MEDS: Calcium Carb/Vitamin D 1 TABLET Tablet GT (08:22)
[2020-06-12] MEDS: Lansoprazole 15 MG Capsule.DR GT (08:23)
[2020-06-12] MEDS: Rivaroxaban 20 MG Tablet GT (08:24)
[2020-06-12] MEDS: Benztropine 2 MG Tablet 1 MG GT (08:26)
[2020-06-12] MEDS: amLODIPine 5 MG Tablet PO (08:31)
[2020-06-12 08:42] VITALS: BP 112/53; PULSE 95; RESP 20; TEMP 36.9; O2SAT 95
--- NOTE | 2020-06-12 09:59 | CASEMGMT ---
Addendum entered by Madelyn Jay 06/12/20 12:39: SARA faxed completed discharge paperwork to [facility] including transfer to extended care facility, signed medication list, any scripts, and COVID screening tool. Original in SNF folder and copy on pt's chart. SW spoke with RN, pt with some confusion can transport via cot. SW in to speak with pt. SW updated pt that pt's family is requesting pt return to [facility] right now and then they will work on getting pt home from [facility]. Pt states understanding, agreeable to returning to [facility]. SW accessed trip assist and arranged transportation via cot for 1:30. SARA placed a call to Saba at [facility] and updated her on transportation time. SARA placed a call to pt's Niece Cheryl and updated her on discharge and transportation time. RN updated. Plan: [facility] skilled today with Physician's ambulance transporting pt at 1:30pm Original Note: Social Work Note SARA placed a call to pt's Ronitece Cheryl to confirm discharge plans. Cheryl states she spoke with her father Chaz and they feel pt is not ready yet to return home and asks if [facility] is able to take pt and if insurance will pay for pt to return. SARA informed Cheryl that this worker did speak to Saba yesterday who confirmed that pt's insurance will cover pt's return and [facility] is able to accept pt. Cheryl states then that pt will be returning to [facility] and they will continue to work to get pt home from [facility]. SARA informed Cheryl that pt will be discharged today. SARA placed a call to Saba and updated her that pt's family has decided to send pt back to [facility]. Saba confirms [facility] is able to accept pt today. SARA updated physician. Plan: [facility] today Madelyn Jay REGISTERED NURSE SURGICAL SERVICES, FINISHING DEPARTMENT SUPERVISOR
[2020-06-12 10:40] LABS: Bedside Glucose 132 mg/dL (70-110)
--- NOTE | 2020-06-12 11:32 | PCM.TXEXTCAR ---
- Diet 06/08/20 22:47 Diet: Tube Feeding Is pt able to select menu?: No - Routine Orders/Code Status Routine Lab Work: CBC - Mondays, BMP - Mondays Code Status: Full Code - Wound(s) left leg Wound Type: scabbed wound around mouth Wound Type: Abrasion Behind left ear Wound Type: Abrasion - Therapies Physical Therapy: Eval and Treat Occupational Therapy: Eval and Treat Speech Therapy: Eval and Treat - Allergies/Procedures Done in Hospital Allergies/Adverse Reactions: Allergies No Known Allergies Allergy (Verified 06/07/20 01:36) - Type of Care/Length of Stay Estimated LOS: Convalescent Care Less Than 30 days Type of Care Needed: Skilled Rehab Potential: Fair Prognosis: Fair - Additional Orders/Day of Discharge Day of Discharge: 06/12/20 - Dietary and Speech Recommendations Dietitian Recommendations/Changes: Rec FARM SERVICE CONSULTANT assessment prior to advancement of PO diet. Once pt PEG replaced and able to be utilized for feedings- rec Jevity 1.5 250 ml bolus feed via PEG 4x/day with 90 ml H2O flush before and after each feed to provide 1500 calories, 64 g protein, and 1480 ml total free fluid per day. - Follow Up Care Primary Care Physician: Jose Brown MD [Primary Care Provider] - Within 2 Weeks
--- NOTE | 2020-06-12 11:37 | PCM.DC.SUM ---
Discharge Date and Diagnosis - Problem List Patient Problems: Active and Suspected Problems UTI (urinary tract infection) (Acute) Delirium (Acute) Date of Admission: 06/08/20 Date of Discharge: 06/12/20 - Primary Discharge Diagnosis Acute Problems: Active Problems UTI (urinary tract infection) (Acute) Delirium (Acute) 1. acute encephalopathy likely multifactorial stable plan: discontinue gabapentin no need for Geriatric psychiatry 2. UTI klebsiella received CTX for 3 days change to cipro for 3 more days 3. Facial excoriations no evidence of shingles Aquaphor 4. achalasia on tube feeds NPO 5. Chronic afib anticoagulated with rivaroban - Secondary Discharge Diagnosis Chronic Problems: Chronic Problems Hypertension (Chronic) Hyperlipidemia (Chronic) Chronic insomnia (Chronic) Diabetes mellitus, type II (Chronic) Achalasia (Chronic) Hospital Course and Treatment Imaging Results: Clinical Impression(s) from Imaging Studies KUB X-Ray 06/07/20 01:55 IMPRESSION: Gastrostomy tube in the distal gastric body with no contrast extravasation. Electronically Signed: Dick Rueda MD at 3:19 EDT Tel , Service support , Chest X-Ray 06/07/20 19:55 IMPRESSION: No acute disease Electronically Signed: Saleem Pulliam MD at 21:32 EDT , Service support , Brain CT 06/08/20 19:13 IMPRESSION: Atrophy. No acute disease. Electronically Signed: Saleem Pulliam MD at 20:32 EDT , Service support , KUB X-Ray 06/09/20 19:55 IMPRESSION: Injected contrast outlines mucosal of the stomach, small bowel and large bowel with no evidence of contrast extravasation. The gastrostomy tube itself is difficult to visualize and may be obscured by the intraluminal contrast. Electronically Signed: Oscar Skinner MD at 20:15 EDT Tel , Service support , Chest X-Ray 06/10/20 23:53 IMPRESSION: No evidence for acute cardiopulmonary pathology. Electronically Signed: Marc Chase MD at 1:16 EDT , Service support , Annette Fowler, General Surgery Operations: None Procedures: Peg tube placement Summary of Care Provided: The patient is a 65 year old F presents with agitation and pulling out her PEG tube. Patient was brought to the hospital and found to have UTI started on ceftriaxone. UTI went up showing Klebsiella sensitive to Cipro and patient will complete antibiotics for a total of 7 days upon discharge. For the patient's agitation likely multifactorial due to underlying dementia theatric disorders and UTI. Also concern for medications contributing so gabapentin has been discontinued move forward. Patient was seen by general surgery as she had her remove her PEG tube. That was replaced by Dr. Fowler on the . Patient did have excoriations on her face. No evidence of any zoster. Patient clean about her ears but there is no impact from wax nor any evidence of otitis media nor otitis externa. Patient just scratching her face and also around her ears. Recommend just Aquaphor around the area to help alleviate some of the pruritus she may be experiencing. No evidence of any kind clinical rash throughout the remainder of her body. Due to the agitation, patient was seen by geriatric psychiatry and not felt appropriate for geriatric psychiatric unit. Patient will be discharged back [facility]. [] Patient Problems: Active and Suspected Problems UTI (urinary tract infection) (Acute) Delirium (Acute) - Physical Exam Vitals/I&O's: Vital Signs Temp Pulse Resp BP Pulse Ox 36.9 C 95 20 H 112/53 L 95 06/12/20 08:42 06/12/20 08:42 06/12/20 08:42 06/12/20 08:42 06/12/20 08:42 Oxygen Delivery Method Room Air Weight: 60.7 kg Body Mass Index (BMI) 23.8 Finger Stick Blood Glucose 98 Intake and Output for Last 24 Hours 06/10/20 06/11/20 06/12/20 23:59 23:59 23:59 Intake Total 2651.25 / 2651.25 3555 / 3555 1380 / 1380 Output Total 1150 / 1150 550 / 550 Balance 1501.25 / 1501.25 3005 / 3005 1380 / 1380 General: Alert, No apparent distress HEENT: Atraumatic, Normocephalic Oral: Moist Mucosa, No Gingival or Mucosal Lesions/ Ulcerations Neck: No Nodes, Thyroid Normal Size and Texture Lungs: Clear to auscultation, Normal air movement, No rhonchi, No wheeze Cardiovascular: Regular rate, Regular Rhythm, Normal S1, Normal S2 Abdomen: Bowel Sounds Present, Soft, Non Tender, Non-Distended, - - PEG tube inplace Skin: - - excoriation on face. Microbiology Past 72 Hours 06/08/20 11:43 Interface Orders Urine Culture - Final Klebsiella pneumoniae sp pneum Laboratory Results 06/11/20 16:18: POC Glucose 91 06/11/20 23:13: POC Glucose 96 06/12/20 06:00: POC Glucose 113 H 06/12/20 10:34: POC Glucose 132 H Current Medications Acetaminophen (Acetaminophen 325 Mg Tablet) 650 mg PO Q6H PRN PRN PRN Reason: Pain Score 1-10/Temp > 100.7 F Last Admin: 06/11/20 06:29 Dose: 650 mg Documented by: Al Hydroxide/Mg Hydroxide (Mag Hydrox/Al Hydrox/Simeth 30 Ml Udc) 30 ml GT Q6H PRN PRN PRN Reason: Gastric Burning Albuterol Sulfate (Albuterol 2.5 Mg/3 Ml Vial.Neb.) 2.5 mg INHALATION Q2H PRN PRN PRN Reason: Shortness of Breath/Wheezing Albuterol Sulfate (Albuterol 2.5 Mg/3 Ml Vial.Neb.) 2.5 mg INHALATION Q6HWA.RT [facility] Last Admin: 06/12/20 07:30 Dose: 2.5 mg Documented by: Amlodipine Besylate (Amlodipine 5 Mg Tablet) 5 mg PO DAILY [facility] Last Admin: 06/12/20 08:31 Dose: 5 mg Documented by: Atorvastatin Calcium (Atorvastatin Calcium 10 Mg Tablet) 5 mg GT QHS [facility] Last Admin: 06/11/20 23:08 Dose: 5 mg Documented by: Benztropine Mesylate (Benztropine 2 Mg Tablet) 1 mg GT BID [facility] Last Admin: 06/12/20 08:26 Dose: 1 mg Documented by: Bisacodyl (Bisacodyl 10 Mg Suppository) 10 mg RC DAILY PRN PRN PRN Reason: Constipation Budesonide (Budesonide Respules 0.5 Mg/2 Ml Ampul.Neb.) 0.5 mg INHALATION Q12H.RT [facility] Last Admin: 06/12/20 07:31 Dose: 0.5 mg Documented by: Calamine/Phenol (Menthol/Lanolin/Calamine/Znox 113 Gm Tube) 1 applic TOPICAL BID [facility]; Protocol Last Admin: 06/12/20 08:14 Dose: 1 applic Documented by: Calcium/Vitamin D (Calcium Carb/Vitamin D 1 Tablet Tablet) 1 tablet GT BID [facility] Last Admin: 06/12/20 08:22 Dose: 1 tablet Documented by: Ciprofloxacin HCl (Ciprofloxacin 250 Mg Tablet) 250 mg PO BID [facility] Last Admin: 06/12/20 08:22 Dose: 250 mg Documented by: Dextrose (Dextrose 50%-Water 25 Gm/50 Ml Disp.Syrin) 0 gm IV X1 PRN; Protocol PRN Reason: Hypoglycemia Enteral Nutritional Formula (Jevity 1.5. 1,000 Ml Bottle) 250 ml GT ACHS [facility] Last Admin: 06/12/20 10:42 Dose: 250 ml Documented by: Glucagon (Glucagon 1 Mg/Ml Syringe) 1 mg IM .X1 PRN PRN Reason: Hypoglycemia Haloperidol Lactate (Haloperidol Lactate 5 Mg/Ml Vial) 2 mg IM Q6H PRN PRN PRN Reason: AGITATION Ceftriaxone Sodium (Rocephin) 1 gm in 50 mls @ 100 mls/hr IV Q24H [facility] Last Infusion: 06/11/20 23:27 Dose: Infused Documented by: Insulin Human Lispro (Insulin Lispro 100 Unit/Ml Insuln.Pen) 0 unit SC Q6 [facility]; Protocol Last Admin: 06/12/20 10:41 Dose: Not Given Documented by: Lansoprazole (Lansoprazole 15 Mg Capsule.Dr) 15 mg GT DAILY [facility] Last Admin: 06/12/20 08:23 Dose: 15 mg Documented by: Lisinopril (Lisinopril 40 Mg Tablet) 40 mg GT DAILY [facility] Last Admin: 06/12/20 08:22 Dose: 40 mg Documented by: Multi-Ingredient Ointment (Mineral Oil/Petrolatum Cr 1.75oz Bottle) 1 applic TOPICAL DAILY [facility]; Protocol Last Admin: 06/12/20 08:15 Dose: 1 applic Documented by: Multivitamins (Multivitamins,Therapeutic Tablet) 1 tablet GT DAILY [facility] Last Admin: 06/12/20 08:22 Dose: 1 tablet Documented by: Nitroglycerin (Nitroglycerin (Inpatient Use) 0.4 Mg Tab.Subl) 0.4 mg SL Q5M PRN PRN Reason: CARDIAC/CHEST PAIN Nystatin (Nystatin Powder 15gm Bottle) 1 applic TOPICAL BID [facility]; Protocol Last Admin: 06/12/20 08:15 Dose: 1 applic Documented by: Olanzapine (Olanzapine 10 Mg Tablet) 15 mg GT QHS [facility] Last Admin: 06/11/20 23:09 Dose: 15 mg Documented by: Oxybutynin Chloride (Oxybutynin 5 Mg Tablet) 10 mg GT DAILY [facility] Last Admin: 06/12/20 08:22 Dose: 10 mg Documented by: Prochlorperazine Edisylate (Prochlorperazine 10 Mg/2 Ml Vial) 5 mg IV Q4H PRN PRN PRN Reason: Breakthrough nausea/vomiting Rivaroxaban (Rivaroxaban 20 Mg Tablet) 20 mg GT DAILY [facility] Last Admin: 06/12/20 08:24 Dose: 20 mg Documented by: Sodium Chloride (0.9% Saline Lock 10 Ml Syringe) 10 - 40 ml IV UD PRN PRN Reason: SALINE FLUSH Last Admin: 06/11/20 22:58 Dose: 10 ml Documented by: Discharge Diet: - - tube feeds Home Medications: Medications to take at Discharge Lisinopril 40 mg PO DAILY 12/01/13 Olanzapine 15 mg PO QHS 12/01/13 Aspirin [Aspir-Low] 81 mg PO DAILY 05/18/19 Benztropine [Cogentin] 1 mg PO BID 05/18/19 Calcium Carbonate/Vitamin D3 [Calcium 600 + Vit D Tablet] 1 ea GT BID 05/18/19 Metformin HCl 500 mg PO BID 05/18/19 Oxybutynin [Ditropan] 10 mg PO DAILY 05/18/19 Simvastatin 10 mg PO QHS 05/18/19 Multivitamin [Daily Griffin] 1 ea PO DAILY 02/05/20 Albuterol Sulfate [Albuterol Sulfate HFA] 2 puff IH 4X/DAY 04/01/20 Bisacodyl 10 mg RC DAILY PRN PRN 04/01/20 Budesonide/Formoterol Fumarate [Symbicort 80-4.5 Mcg Inhaler] 2 puff IH BID 04/01/20 Guaifenesin [Robitussin] 10 ml PO Q4H PRN PRN 04/01/20 Lactose-Reduced Food/Fiber [Jevity 1.5 Hermes Liquid] 250 ml GT ACHS 04/01/20 Mag Hydrox/Al Hydrox/Simeth [Mylanta II] 30 ml PO Q4H PRN PRN 04/01/20 Lansoprazole 15 mg PO DAILY 06/07/20 Acetaminophen [Tylenol Tablet] 650 mg PO Q4H PRN PRN 06/08/20 Debrox 6 drp EACH EAR DAILY PRN 06/08/20 Magnesium Hydroxide [Milk Of Magnesia] 30 ml PO DAILY PRN PRN 06/08/20 Menthol/Lanolin/Calamine/Znox [Calmoseptine Ointment] 1 applic TOPICAL BID 06/08/20 Rivaroxaban [Xarelto] 20 mg PO DAILY 06/08/20 Amlodipine [Norvasc] 5 mg PO DAILY tablet 06/12/20 Ciprofloxacin [Cipro] 250 mg PO BID #6 tablet 06/12/20 Primary Care Physician: Jose Brown MD [Primary Care Provider] - Within 2 Weeks Disposition: Halfway facility Minutes spent on discharge:: 32 Patient Condition:: Fair Medical Necessity - Tobacco Use Smoking Status: Unknown if ever smoked Meaningful Use Info Meaningful Use Diagnoses (Choose all that apply): None applicable Inpatient E&M: 22599 Disch Hosp
[2020-06-12 12:26] VITALS: BP 119/67; PULSE 92; RESP 20; TEMP 37.1; O2SAT 95
--- NOTE | 2020-06-12 13:03 | NURSING ---
Report left of admission number, with this nurses' number, if they have any questions.
== END 2020-06-12 13:50 ==
LOC: ED 20:23 → MS3 06-08 15:05
PROVIDERS: Emergency Medicine; Family Medicine; Internal Medicine; Surgery; Admitting Provider Internal Medicine; Emergency Provider Emergency Medicine; PCP Internal Medicine
PROC: 0DJ08ZZ Inspection of Upper Intestinal Tract, Via Natural or Artificial Opening Endoscopic (ICD-10-PCS; CPT 43235; principal; 2020-06-10 11:30)
DX: N30.00 Acute cystitis without hematuria (principal); G93.41 Metabolic encephalopathy; K22.0 Achalasia of cardia; E78.5 Hyperlipidemia, unspecified; I10 Essential (primary) hypertension; B96.1 Klebsiella pneumoniae [K. pneumoniae] as the cause of diseases classified elsewhere; E11.9 Type 2 diabetes mellitus without complications; D63.8 Anemia in other chronic diseases classified elsewhere; G24.01 Drug induced subacute dyskinesia; K81.0 Acute cholecystitis; I48.0 Paroxysmal atrial fibrillation; F20.9 Schizophrenia, unspecified; K29.70 Gastritis, unspecified, without bleeding; K21.9 Gastro-esophageal reflux disease without esophagitis; Z79.01 Long term (current) use of anticoagulants; Z79.84 Long term (current) use of oral hypoglycemic drugs; Z79.899 Other long term (current) drug therapy; Z79.82 Long term (current) use of aspirin; Z43.1 Encounter for attention to gastrostomy; Z79.51 Long term (current) use of inhaled steroids
CPT/HCPCS: 43246; 36415; 70450; 71045; 74018; 80048; 80053; 80307; 81001; 82077; 82140; 82607; 82746; 82962; 83735; 84100; 84443; 84484; 85025; 87077; 87086; 87088; 87186; 87426; 93005; 94640; 94762; 96361; 96365; 96366; 96372; 96375; 96376; 97110; 97162; 97166; 97530; 97535; 97802; 99218; 99285; J7030; A4216; G0378; J3486

== ENCOUNTER 2020-06-20 23:42 | Inpatient (IN) | payer MEDICAID, SELFPAY ==
[2020-06-09 13:39] VITALS: BMI 23.8
[2020-06-20 23:43] VITALS: BP 100/55; PULSE 99; RESP 16; TEMP 36.8; O2SAT 98; BMI 26.5
[2020-06-20 23:58] LABS: Absolute Lymphocyte Count 0.87 X10^3/uL (0.83-4.51); Absolute Neutrophil Count 8.7 X10^3/uL (2.0-7.7); Basophil# 0.05 X10^3/uL; Basophil% 0.5 % (0-1); Hematocrit 38.3 % (37-47); Hemoglobin 12.1 g/dL (12.0-15.0); Lymphocyte # 0.87 X10^3/ul (4.0); Lymphocyte % 8.3 % (19-41); Mean Corp Hgb Conc 31.6 g/dL (32-36); Mean Corpuscular Hgb 26.9 pg (27.0-32.0); Mean Corpuscular Volume 85.1 fL (81-99); Monocyte# 0.79 X10^3/uL; Monocyte% 7.6 % (0-10); NRBC Flagged by Analyzer 0 % (0-5); Neutrophil # 8.68 X10^3/uL (2.7-7.7); Neutrophil % 83.1 % (47-70); Platelet Count 338 K/mm3 (150-450); RBC Distribution Width CV 14.6 % (11.6-14.6); RBC Distribution Width SD 45.4 fl (35.1-43.9); White Blood Count 10.4 K/mm3 (4.4-11.0)
[2020-06-21] VITALS (19 sets, daily range): BP systolic 100–126; BP diastolic 58–67; PULSE 72–92; RESP 16–22; TEMP 36.5–37.5; O2SAT 94–97; BMI 22.1
[2020-06-21 00:10] LABS: ALB/GLOB Ratio 0.8 RATIO (0.9-2.4); AST(SGOT) 11 U/L (15-37); Alanine Aminotransfer ALT/SGPT 17 U/L (13-56); Albumin, Serum 3.6 g/dL (3.2-5.0); Alkaline Phosphatase 118 U/L (45-117); Anion Gap 6 (5-15); BUN 45 mg/dL (7-18); BUN/Creat Ratio 52.1 RATIO (10-20); Calcium,Total 9.5 mg/dL (8.5-10.1); Chloride 111 mmol/L (98-107); Creatinine, Serum 0.86 mg/dL (0.55-1.02); EST Glomerular Filtration Rate 70 mL/min (>60); Est Glom Filt Rate - Afr Amer 85 mL/min (>60); Estimated Creatinine Clearance 46.22 ml/min; Globulin 4.3 g/dL (2.2-4.2); Glucose 169 mg/dL (74-106); Protein, Total 7.9 g/dL (6.4-8.2); Sodium Level 141 mmol/L (136-145)
--- NOTE | 2020-06-21 00:30 | RAD_ITS ---
STUDY: X-RAY CHEST REASON FOR EXAM: Female, 65 years old. Tachypnea and low pulse ox TECHNIQUE: Single AP portable view of the chest. COMPARISON: 06/11/2020. FINDINGS: Exam is limited due to patient''s rotation and decreased inspiratory effort. The lungs are clear and expanded. There is no demonstrated pleural abnormality. Normal size heart. Normal mediastinum and mike. Normal visualized pulmonary arteries. There is atherosclerotic calcification of the aortic arch with tortuosity. There are diffuse degenerative changes of the visualized thoracic spine. There is degenerative osteoarthritis of the bilateral shoulders. Right upper quadrant surgical clips seen. RAD/Chest 1 View (Portable) IMPRESSION: No acute cardiopulmonary disease. Electronically Signed: Ximena Quiroga MD at 1:07 EDT , Service support ,
--- NOTE | 2020-06-21 00:31 | ED.DCSUM_ITS ---
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 Location: [facility] Current Severity: Patient somnolent. Maximum Severity: Severe Worsened by: Unknown Relieved by: Unknown Associated Symptoms: Unable to determine Narrative: Patient is a 65-year-old woman who resides at nursing facility. She has multiple medical problems. She was diagnosed with urinary tract infection June 08. She was sent in because of problems with behavior and aggressive behavior. There is no documentation in records of dementia. Will review detention records. Presently she is somnolent. She is tachypneic and pulse ox is only 90%. Patient does not open her eyes to verbal stimuli. Patient does not open her eyes to tactile stimuli. Patient withdraws to noxious stimuli. Prior similar symptoms: Yes - Due to urinary tract infection June 08 Recent Illness/Hospitalization: Yes - Past Medical History (1) Hypertension Status: Chronic (2) Hyperlipidemia Status: Chronic (3) Chronic insomnia Status: Chronic (4) Diabetes mellitus, type II Status: Chronic (5) Achalasia Status: Chronic Past Medical History - Allergies and Home Meds Allergies/Adverse Reactions: Allergies No Known Allergies Allergy (Verified 06/20/20 23:46) Primary Care Physician: Jose Brown MD [Primary Care Provider] - Prior records reviewed: Yes Surgical History: - - Cholecystectomy. Lives: Detention Smoking Status: Never smoker Alcohol: None Drugs: None - Family History Maternal Family History: Reports: - - Patient denies any market maternal or paternal family history including heart disease, diabetes, cancer. Paternal Family History: Reports: - - Patient denies any market maternal or paternal family history including heart disease, diabetes, cancer. Review of Systems ROS: Unable to Obtain Physical Exam Vital Signs/Narrative: Vital Signs Temp Pulse Resp BP Pulse Ox 06/20/20 23:43 98.2 F 99 16 100/55 L 98 Inital Vital Signs reviewed: Yes General: Well nourished, Well developed, No Acute Distress Head: Normocephalic, Atraumatic Eyes: Perrl, EOMI. Negative for: Pale conjunctiva, Scleral icterus ENT: No rhinorrhea, TM's clear, Dry mucous membranes Neck: Supple, Nontender, No lymphadenopathy, No JVD Cardiovascular: Regular rate, Regular rhythm, No murmurs, Normal S1, Normal S2 Respiratory: No distress, CTA bilaterally, Chest nontender, - - And is breathing 24-26 times a minute not 16 as documented. Abdomen: Soft, Nontender, Nondistended, Normal bowel sounds Back: Nontender Extremities: Nontender, Edema Skin: No rash, No Trauma. Negative for: Cyanosis, Diaphoresis, Jaundice Neurological: Cranial nerves II-XII grossly intact, Normal Strength, Normal Sensation. Negative for: Alert, Oriented x3, Normal Gait Psychological: - - Unable to determine Diagnostic/Tx/Re-eval Chest X-Ray - ED: 1 View, Read by ED Physician, Normal, Heart, Lungs, Bony Structures, No Acute Disease, Chronic Changes, - - Portable chest x-ray treated by ia at 0054. This was compared to chest x-ray obtained on 06/11/2020. Other than technique there is no interval changes or significant findings. Impressions Chest X-Ray 06/21/20 00:30 IMPRESSION: No acute cardiopulmonary disease. Electronically Signed: Ximena Quiroga MD at 1:07 EDT , Service support , 06/21/20 00:30 Chest 1 View (Portable) [RAD] Stat Laboratory Results 06/20/20 06/20/20 06/21/20 23:50 23:50 00:40 WBC 10.4 RBC 4.50 Hgb 12.1 Hct 38.3 MCV 85.1 MCH 26.9 L MCHC 31.6 L RDW Std Deviation 45.4 H RDW Coeff of Jesica 14.6 Plt Count 338 MPV 11.0 Immature Gran % (Auto) 0.500 Neut % (Auto) 83.1 H Lymph % (Auto) 8.3 L [place] % (Auto) 7.6 Eos % (Auto) 0.0 Baso % (Auto) 0.5 Absolute Neuts (auto) 8.7 H Absolute Lymphs (auto) 0.87 Nucleated RBC % 0 Sodium 141 Potassium 4.0 Chloride 111 H Carbon Dioxide 24.0 Anion Gap 6 BUN 45 H Creatinine 0.86 Estim Creat Clear Calc 46.22 Est GFR (MDRD) Af Amer 85 Est GFR (MDRD) Non-Af 70 BUN/Creatinine Ratio 52.1 H Glucose 169 H Lactic Acid Calcium 9.5 Total Bilirubin 0.60 AST 11 L ALT 17 Alkaline Phosphatase 118 H Total Protein 7.9 Albumin 3.6 Globulin 4.3 H Albumin/Globulin Ratio 0.8 L Urine Color Yellow Urine Clarity Cloudy Urine pH 6.0 Ur Specific [place] 1.020 Urine Protein 30 H Urine Glucose (UA) Normal Urine Ketones 5 H Urine Occult Blood 25 H Urine Nitrite Negative Urine Bilirubin Negative Urine Urobilinogen Normal Ur Leukocyte Esterase 500 H Urine RBC 0-5 SEEN Urine WBC >100 SEEN Ur Squamous Epith Cells 0 SEEN Urine Bacteria 2+ Urine Mucus 0 SEEN 06/21/20 01:00 WBC RBC Hgb Hct MCV MCH MCHC RDW Std Deviation RDW Coeff of Jesica Plt Count MPV Immature Gran % (Auto) Neut % (Auto) Lymph % (Auto) [place] % (Auto) Eos % (Auto) Baso % (Auto) Absolute Neuts (auto) Absolute Lymphs (auto) Nucleated RBC % Sodium Potassium Chloride Carbon Dioxide Anion Gap BUN Creatinine Estim Creat Clear Calc Est GFR (MDRD) Af Amer Est GFR (MDRD) Non-Af BUN/Creatinine Ratio Glucose Lactic Acid 1.0 Calcium Total Bilirubin AST ALT Alkaline Phosphatase Total Protein Albumin Globulin Albumin/Globulin Ratio Urine Color Urine Clarity Urine pH Ur Specific [place] Urine Protein Urine Glucose (UA) Urine Ketones Urine Occult Blood Urine Nitrite Urine Bilirubin Urine Urobilinogen Ur Leukocyte Esterase Urine RBC Urine WBC Ur Squamous Epith Cells Urine Bacteria Urine Mucus - Medical Decision Making Is hypotensive compared to prior blood pressure readings. With her being tachypneic with pulse ox 90% and history of achalasia need to rule out aspiration. We will need to rule out urinary tract infection. If there is no metabolic or infectious reason for her behavior will contact mental health. Chest x-ray, appropriate blood work and urinalysis was ordered. Patient's blood pressure did improve with fluids. Patient's source of infection is urologic. Urine culture was ordered. Lactate was ordered and blood cultures prior to treatment with Rocephin. - Critical Care Time Critical care time (excluding procedures): 30-74 minutes - Total time 33 minutes. This included time to review records from detention, review recent admission, performing history and physical. These were limited. Documentation. Initiation of therapy., Discussing w/Consultants, Arranging Admission or Transfer ED Disposition - Plan for ED Patient: Disposition: Acute Care Hospital [facility] Diagnosis: Hypotension, Urinary tract infection, Infectious encephalopathy, Acute prerenal azotemia Referrals: Jose Brown MD [Primary Care Provider] -
[2020-06-21 00:46] LABS: Mucous, Urine 0 SEEN /hpf (<or=2+); Squamous Epithelial Cells - UA 0 SEEN /hpf (5-10)
[2020-06-21 00:49] LABS: Color, Urine Yellow (Yellow); Glucose, Dipstick Normal (Normal); Ketone-Dipstick 5 mg/dl (Negative); Leukocyte Esterase-Dipstick 500 /ul (Negative); Nitrite-Dipstick Negative (Negative); Occult Blood-Urine 25 /ul (Negative); Protein-Dipstick 30 mg/dl (Negative); Urine Bilirubin Dipstick Negative (Negative); Urine Clarity Cloudy (Clear); Urine Urobilinogen Normal (Normal)
[2020-06-21 00:58] LABS: Bacteria 2+ /hpf (None Seen); White Blood Cells >100 SEEN /hpf (0-5)
[2020-06-21 00:59] LABS: Red Blood Cells-Urine 0-5 SEEN /hpf (0-5)
[2020-06-21] MEDS: Ceftriaxone 1 GM/50 ML BAG IV ×2 (01:14→22:28)
--- NOTE | 2020-06-21 02:01 | HP.PCM_ITS ---
Problem List (1) Delirium Status: Acute (2) UTI (urinary tract infection) Status: Acute (3) Hypertension Status: Chronic Qualifiers: Hypertension type: essential hypertension Qualified Code(s): I10 - Essential (primary) hypertension (4) Hyperlipidemia Status: Chronic Qualifiers: Hyperlipidemia type: unspecified Qualified Code(s): E78.5 - Hyperlipidemia, unspecified (5) Chronic insomnia Status: Chronic (6) Diabetes mellitus, type II Status: Chronic Qualifiers: Diabetes mellitus detention insulin use: without intermediate card tender use Diabetes mellitus complication status: with other specified complication Qualified Code(s): E11.69 - Type 2 diabetes mellitus with other specified complication (7) Achalasia Status: Chronic History of Present Illness Date of Admission: 06/21/20 Chief Complaint: Aggressive behavior. The patient is a 65 year old F with past medical history as mentioned above who is a resident at a nursing facility was transferred to ED because of aggressive behavior. At this time, patient is awake and alert, speaking fluently and coherently but she was confused. Although she was talking, she could not open her eyes as part of multiple requests. She is moving her legs. She knows her full name and date of . Would not answer questions about place or time. She was admitted around 1 week ago for UTI and delirium. She had a history of achalasia, status post PEG tube placement and she has been on tube feeds. She had a history of chronic atrial fibrillation and she has been on Xarelto for anticoagulation but her med list from the long term did not show Xarelto today. She had history of type 2 diabetes mellitus and she has been on Metformin. In the emergency department, initial blood pressure was borderline, improved with IV fluid bolus, was afebrile, other vital signs were stable. Routine blood work was unremarkable. LFT was normal. Lactic acid was normal. Urinalysis revealed cloudy urine, there was 500 leukocyte esterase, more than 100 WBC and 2+ bacteria. Chest x-ray showed no acute findings. She is being admitted for acute complicated cystitis and delirium/acute metabolic encephalopathy. Past Medical History Past Medical History (Chronic Problems): Chronic Problems Hypertension (Chronic) Hyperlipidemia (Chronic) Chronic insomnia (Chronic) Diabetes mellitus, type II (Chronic) Achalasia (Chronic) Allergies No Known Allergies Allergy (Verified 06/20/20 23:46) Home Medications: Ambulatory Orders Medication Instructions Recorded Lisinopril 40 mg PO DAILY 12/01/13 Olanzapine 15 mg PO QHS 12/01/13 Aspirin [Aspir-Low] 81 mg PO DAILY 05/18/19 Benztropine [Cogentin] 1 mg PO BID 05/18/19 Calcium Carbonate/Vitamin D3 1 ea GT BID 05/18/19 [Calcium 600 + Vit D Tablet] Metformin HCl 500 mg PO BID 05/18/19 Oxybutynin [Ditropan] 10 mg PO DAILY 05/18/19 Simvastatin 10 mg PO QHS 05/18/19 Multivitamin [Daily [place]] 1 ea PO DAILY 02/05/20 Albuterol Sulfate [Albuterol 2 puff IH 4X/DAY 04/01/20 Sulfate HFA] Bisacodyl 10 mg RC DAILY PRN PRN 04/01/20 Budesonide/Formoterol Fumarate 2 puff IH BID 04/01/20 [Symbicort 80-4.5 Mcg Inhaler] Guaifenesin [Robitussin] 10 ml PO Q4H PRN PRN 04/01/20 Lactose-Reduced Food/Fiber [Jevity 250 ml GT ACHS 04/01/20 1.5 Hermes Liquid] Mag Hydrox/Al Hydrox/Simeth 30 ml PO Q4H PRN PRN 04/01/20 [Mylanta II] Acetaminophen [Tylenol Tablet] 650 mg PO Q4H PRN PRN 06/08/20 Debrox 6 drp EACH EAR DAILY PRN 06/08/20 Magnesium Hydroxide [Milk Of 30 ml PO DAILY PRN PRN 06/08/20 Magnesia] Menthol/Lanolin/Calamine/Znox 1 applic TOPICAL BID 06/08/20 [Calmoseptine Ointment] Amlodipine [Norvasc] 5 mg PO DAILY tablet 06/12/20 Ciprofloxacin [Cipro] 250 mg PO BID #6 tablet 06/12/20 Surgical History: - - Cholecystectomy. PEG tube placement. Psychiatric History: No pertinent psych hx MANAGER STORAGE History: No pertinent MANAGER STORAGE history Lives: [facility] Smoking Status: Never smoker Alcohol: None Drugs: None - *Family History Maternal History Items: - - Patient denies any market maternal or paternal family history including heart disease, diabetes, cancer. Paternal History Items: - - Patient denies any market maternal or paternal family history including heart disease, diabetes, cancer. Review of Systems Constitutional: Denies: Anorexia, Chills, Fever, Weakness Eyes: Denies: Blurred vision, Double vision, Drainage, Redness HEENT: Denies: Difficulty Hearing, Ear Pain, Eye Pain, Nasal Congestion, Sore Throat Cardiovascular: Denies: Chest Pain, Chest Pressure, Palpitations, Syncope Respiratory: Denies: Cough, Pleuritic Pain, Sputum production, Wheezing Gastrointestinal: Denies: Abdominal Pain, Constipation, Nausea, Vomiting Genitourinary: Denies: Dysuria, Frequency, Hematuria Musculoskeletal: Denies: Arm Pain, Back Pain, Foot Pain Skin: Denies: Dryness, Rash Neurological: Denies: Balance problems, Double vision, Change in Speech, Slurred speech, Headaches, Incoordination Psychiatric: Denies: Anxiety, Depression Endocrine: Denies: Change in Body Habitus, Polydipsia, Polyuria VTE Information - Inpt Only VTE Present on Admission: No VTE Mechan Device Prophylaxis: None VTE Pharm Prophylaxis ordered?: Yes Patient Problems: Active and Suspected Problems Delirium (Acute) UTI (urinary tract infection) (Acute) - Physical Exam Vitals/I&O's: Vital Signs Temp Pulse Resp BP Pulse Ox 97.7 F L 81 16 120/61 97 06/21/20 01:51 06/21/20 01:51 06/21/20 01:51 06/21/20 01:51 06/21/20 01:51 Oxygen Delivery Method Room Air Weight: 136 lb 0.403 oz Body Mass Index (BMI) 26.5 Finger Stick Blood Glucose 98 Intake and Output for Last 24 Hours 06/19/20 06/20/20 06/21/20 23:59 23:59 23:59 Intake Total 550 / 550 Balance 550 / 550 General: Alert, Cooperative, No apparent distress, Disoriented HEENT: Atraumatic, PERRLA, EOMI, Normocephalic Oral: No Gingival or Mucosal Lesions/ Ulcerations, Dry Mucosa Neck: Supple, No JVD, Negative Carotid Bruits, Trachea Midline, Thyroid Normal Size and Texture Lungs: Clear to auscultation, Normal air movement, No wheeze, No rales, Diminished, Rhonchi Cardiovascular: Regular rate, Regular Rhythm, Normal S1, Normal S2, PMI Normal Abdomen: Bowel Sounds Present, Soft, Non Tender, Non-Distended, No Hepato- splenomegaly Extremities: No clubbing, No cyanosis, No edema Skin: No rashes, No breakdown Lymphatic: No Cervical, Supraclavicular, or Inguinal Adenopathy Neurological: Cranial nerves II-XII grossly intact, Motor Exam 5/5 strength throughout Psych/Mental Status: - - Unable to assess. Laboratory Results 06/20/20 23:50: WBC 10.4, RBC 4.50, Hgb 12.1, Hct 38.3, MCV 85.1, MCH 26.9 L, MCHC 31.6 L, RDW Std Deviation 45.4 H, RDW Coeff of Jesica 14.6, Plt Count 338, MPV 11.0, Immature Gran % (Auto) 0.500, Neut % (Auto) 83.1 H, Lymph % (Auto) 8.3 L, [place] % (Auto) 7.6, Eos % (Auto) 0.0, Baso % (Auto) 0.5, Absolute Neuts (auto) 8.7 H, Absolute Lymphs (auto) 0.87, Nucleated RBC % 0 06/20/20 23:50: Sodium 141, Potassium 4.0, Chloride 111 H, Carbon Dioxide 24.0, Anion Gap 6, BUN 45 H, Creatinine 0.86, Estim Creat Clear Calc 46.22, Est GFR (MDRD) Af Amer 85, Est GFR (MDRD) Non-Af 70, BUN/Creatinine Ratio 52.1 H, Glucose 169 H, Calcium 9.5, Total Bilirubin 0.60, AST 11 L, ALT 17, Alkaline Phosphatase 118 H, Total Protein 7.9, Albumin 3.6, Globulin 4.3 H, Albumin/Globulin Ratio 0.8 L 06/21/20 00:40: Urine Color Yellow, Urine Clarity Cloudy, Urine pH 6.0, Ur Specific [place] 1.020, Urine Protein 30 H, Urine Glucose (UA) Normal, Urine Ketones 5 H, Urine Occult Blood 25 H, Urine Nitrite Negative, Urine Bilirubin Negative, Urine Urobilinogen Normal, Ur Leukocyte Esterase 500 H, Urine RBC 0-5 SEEN, Urine WBC >100 SEEN, Ur Squamous Epith Cells 0 SEEN, Urine Bacteria 2+, Urine Mucus 0 SEEN 06/21/20 01:00: Lactic Acid 1.0 Clinical Impression(s) from Imaging Studies Chest X-Ray 06/21/20 00:30 IMPRESSION: No acute cardiopulmonary disease. Electronically Signed: Ximena Quiroga MD at 1:07 EDT , Service support , Assessment/Plan All Active Problems Delirium (Acute) UTI (urinary tract infection) (Acute) This is a 65 years old female patient presented to the emergency room because of aggressive behavior, history of recurrent UTIs with delirium and she was found to have complicated acute cystitis with delirium/metabolic encephalopathy and she is being admitted for treatment. #1 complicated acute cystitis: Initial blood pressure was borderline, improved with IV fluid bolus. She is afebrile, no leukocytosis, lactic acid is normal. No evidence of sepsis or severe sepsis. She had a urine culture around 2 weeks ago that revealed Klebsiella pneumoniae which was pansensitive. Plan: Admit to [facility] floor, IV fluids, blood culture, urine culture, Tylenol as needed, Zofran as needed, start IV Rocephin, repeat CBC and BMP tomorrow morning, PT OT evaluation and treatment. #2 acute delirium/metabolic encephalopathy: Secondary to #1. She has no focal deficit on physical exam. She was admitted around 2 weeks ago for the same problem. Plan as above. #3 type 2 diabetes mellitus: ADA diet, Accu-Cheks, insulin sliding scale, continue Metformin. #4 chronic atrial fibrillation: Heart rate is controlled. She was on Xarelto for anticoagulation. Xarelto is not listed on her med list from the long term. We will have nursing staff call the long term tomorrow to clarify why patient is not on Xarelto anymore. #5 hypertension: Blood pressure improved after IV fluids. Continue Norvasc and lisinopril. #6 history of achalasia: Status post PEG tube placement. Plan to continue tube feeds, consult nutrition. #7 CODE STATUS: Full code, document reviewed from the long term. #8 DVT prophylaxis: Subcu Lovenox. This note was generated with [employer]ured[employer] software. It may contain incorrect words, spelling, and punctuation that were not noted in checking the note before signing. Inpatient E&M: 39547 Init Hosp L2
[2020-06-21] MEDS: 0.9% Normal Saline 1,000 ML 100 ML IV (02:44)
[2020-06-21] MEDS: 0.9% Saline Lock 10 ML Syringe IV (02:44)
[2020-06-21 06:41] LABS: Bedside Glucose 110 mg/dL (70-110)
[2020-06-21] MEDS: Albuterol 2.5 MG/3 ML VIAL.NEB. INHALATION ×3 (06:50→19:35)
[2020-06-21] MEDS: Budesonide Respules 0.5 MG/2 ML AMPUL.NEB. INHALATION ×2 (06:50→19:35)
[2020-06-21] MEDS: Jevity 1.5. 1,000 ML Bottle 250 ML GT ×2 (06:52→11:30)
--- NOTE | 2020-06-21 09:23 | CASEMGMT ---
Pt screened using [facility] Pall[facility]. Pt did not meet criteia.
[2020-06-21] MEDS: Benztropine 2 MG Tablet 1 MG GT ×2 (09:41→22:26)
[2020-06-21] MEDS: Lisinopril 40 MG Tablet GT (09:41)
[2020-06-21] MEDS: amLODIPine 5 MG Tablet GT (09:41)
[2020-06-21] MEDS: Oxybutynin 5 MG Tablet 10 MG GT (09:41)
[2020-06-21] MEDS: Aspirin 81 MG TAB.CHEW GT (09:41)
[2020-06-21] MEDS: Enoxaparin 40 MG/0.4 ML Syringe SC (09:42)
[2020-06-21] MEDS: metFORMIN HCl 500 MG Tablet GT ×2 (09:42→17:03)
[2020-06-21] MEDS: Multivitamins,Therapeutic Tablet 1 TABLET GT (09:42)
[2020-06-21 11:41] LABS: Bedside Glucose 105 mg/dL (70-110)
--- NOTE | 2020-06-21 12:28 | PCM.NTREPORT ---
Nutrition Therapy Report - History Nutrition Services has been consulted to:: Manage enteral nutrition Current diet / nutrition support order:: NPO. 250 ml Jevity 1.5 Hermes 4 times per day via PEG tube--provides 1500 kcal, 63.8 gm pro and 760 ml free water per day. TF meets~88% estimated energy needs and ~85% estimated protein needs. - Anthropometric Measurements Height:: 5 ft 4 in Weight:: 58.4 kg Body Mass Index (BMI):: 22.1 - Relevant Labs Relevant Labs:: MCH 26.9 pg (27.0-32.0) L 06/20/20 23:50 MCHC 31.6 g/dL (32-36) L 06/20/20 23:50 RDW Std Deviation 45.4 fl (35.1-43.9) H 06/20/20 23:50 Neut % (Auto) 83.1 % (47-70) H 06/20/20 23:50 Lymph % (Auto) 8.3 % (19-41) L 06/20/20 23:50 Absolute Neuts (auto) 8.7 X10^3/uL (2.0-7.7) H 06/20/20 23:50 Chloride 111 mmol/L (98-107) H 06/20/20 23:50 BUN 45 mg/dL (7-18) H 06/20/20 23:50 BUN/Creatinine Ratio 52.1 RATIO (10-20) H 06/20/20 23:50 Glucose 169 mg/dL (74-106) H 06/20/20 23:50 AST 11 U/L (15-37) L 06/20/20 23:50 Alkaline Phosphatase 118 U/L (45-117) H 06/20/20 23:50 Globulin 4.3 g/dL (2.2-4.2) H 06/20/20 23:50 Albumin/Globulin Ratio 0.8 RATIO (0.9-2.4) L 06/20/20 23:50 - Assessment Food / Nutrition-Related History:: Pt with delirium so, most information retrieved from EMR--pt with PEG tube for nutrition and NPO. Wt hx reveals recent wt loss significant for malnutrition~12% wt loss x past 2-4 weeks and ~13% wt loss x past 3-4 months suspect inadequate TF support prior to admission. Unable to complete NFPA at this time due to encephalopathy/delirium. Pt is NPO and tolerating bolus PEG TF's without residual. 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 - Nutrition Diagnosis Problem / Etiology / Signs & Symptoms (PES):: Severe pro/hermes malnutrition in the context of chronic disease related to altered GI function/achalasia as evidenced by 13% wt loss x past 3-4 months, inadequate TF support and unable to tolerate PO nutrition. Evidence of Malnutrition Exists:: Yes Severe PCM:: Chronic Illness - Nutrition Intervention Nutrition Prescription:: Estimated nutrition needs~6221-4381 kcal (25 kcal/Kg + 250 kcal) and ~70-80 gm pro (1.3 gm pro/Kg) per day. Estimated fluid needs~9878-1634 ml/day (30 ml/Kg). - Food / Nutrient Delivery Interventions Summary of nutrition intervention:: Will increase current TF bolus from 250ml to 300ml Jevity 1.5 Hermes 4 times per day with 120ml water flush before and after each feed to provide 1800 calories, 77 gm pro and 1872 ml free water per day. NPO. Daily Weights Nutrition support ordered as / adjusted to:: TF bolus increased from 250ml to 300ml Jevity 1.5 Hermes 4 times per day with 120ml water flush before and after each feed to provide 1800 calories, 77 gm pro and 1872 ml free water per day. [ End ] Nutrition education provided?: No - MNT Monitoring Further MNT monitoring and evaluation required?: Yes MNT Follow-up in:: 3-5 days
--- NOTE | 2020-06-21 13:02 | PCM.PN.HOSP ---
Patient Problems: Active and Suspected Problems Hypotension (Acute) Infectious encephalopathy (Acute) Acute prerenal azotemia (Acute) Delirium (Acute) UTI (urinary tract infection) (Acute) Subjective: Patient seen and examined. She was admitted with a complaint of altered mental status, and found to have UTI. She has no complaints this morning. Reveiw of systems is otherwise negative. Vitals/I&O's: Vital Signs Temp Pulse Resp BP Pulse Ox 98.4 F 81 20 H 110/60 95 06/21/20 10:20 06/21/20 10:20 06/21/20 10:20 06/21/20 10:20 06/21/20 10:20 Oxygen Delivery Method Room Air Weight: 128 lb 11.999 oz Body Mass Index (BMI) 22.1 Finger Stick Blood Glucose 98 Intake and Output for Last 24 Hours 06/19/20 06/20/20 06/21/20 23:59 23:59 23:59 Intake Total 2406.67 / 2406.67 Output Total 0 / 0 Balance 2406.67 / 2406.67 General: Alert, Oriented x3, Cooperative, No apparent distress HEENT: Atraumatic, PERRLA, EOMI, Normocephalic Oral: Dry Mucosa Neck: Supple, No JVD, Negative Carotid Bruits Lungs: Clear to auscultation, Normal air movement, No rhonchi Cardiovascular: Regular rate, Regular Rhythm, Normal S1, Normal S2, No murmurs Abdomen: Bowel Sounds Present, Soft, Non Tender, Non-Distended, No Hepato-splenomegaly Extremities: No clubbing, No cyanosis, No edema, Capillary Refill Less than 3 Seconds Skin: No rashes, No breakdown Musculoskeletal: No Tenderness to Palpation of Joints or Extremities Lymphatic: No Cervical, Supraclavicular, or Inguinal Adenopathy Neurological: Cranial nerves II-XII grossly intact Psych/Mental Status: Normal Affect, Appropriate, Alert and oriented to time, place, person, mood and affect Laboratory Results 06/20/20 23:50: WBC 10.4, RBC 4.50, Hgb 12.1, Hct 38.3, MCV 85.1, MCH 26.9 L, MCHC 31.6 L, RDW Std Deviation 45.4 H, RDW Coeff of Jesica 14.6, Plt Count 338, MPV 11.0, Immature Gran % (Auto) 0.500, Neut % (Auto) 83.1 H, Lymph % (Auto) 8.3 L, [place] % (Auto) 7.6, Eos % (Auto) 0.0, Baso % (Auto) 0.5, Absolute Neuts (auto) 8.7 H, Absolute Lymphs (auto) 0.87, Nucleated RBC % 0 06/20/20 23:50: Sodium 141, Potassium 4.0, Chloride 111 H, Carbon Dioxide 24.0, Anion Gap 6, BUN 45 H, Creatinine 0.86, Estim Creat Clear Calc 46.22, Est GFR (MDRD) Af Amer 85, Est GFR (MDRD) Non-Af 70, BUN/Creatinine Ratio 52.1 H, Glucose 169 H, Calcium 9.5, Total Bilirubin 0.60, AST 11 L, ALT 17, Alkaline Phosphatase 118 H, Total Protein 7.9, Albumin 3.6, Globulin 4.3 H, Albumin/Globulin Ratio 0.8 L 06/21/20 00:40: Urine Color Yellow, Urine Clarity Cloudy, Urine pH 6.0, Ur Specific [place] 1.020, Urine Protein 30 H, Urine Glucose (UA) Normal, Urine Ketones 5 H, Urine Occult Blood 25 H, Urine Nitrite Negative, Urine Bilirubin Negative, Urine Urobilinogen Normal, Ur Leukocyte Esterase 500 H, Urine RBC 0-5 SEEN, Urine WBC >100 SEEN, Ur Squamous Epith Cells 0 SEEN, Urine Bacteria 2+, Urine Mucus 0 SEEN 06/21/20 01:00: Lactic Acid 1.0 06/21/20 06:35: POC Glucose 110 06/21/20 11:28: POC Glucose 105 Diagnostic Data Chest X-Ray 06/21/20 00:30 IMPRESSION: No acute cardiopulmonary disease. Electronically Signed: Ximena Quiroga MD at 1:07 EDT , Service support , Current Medications Al Hydroxide/Mg Hydroxide (Mag Hydrox/Al Hydrox/Simeth 30 Ml Udc) 30 ml GT Q4H PRN PRN PRN Reason: gi distress Albuterol Sulfate (Albuterol 2.5 Mg/3 Ml Vial.Neb.) 2.5 mg INHALATION Q2H PRN PRN PRN Reason: Shortness of breath, wheezing Albuterol Sulfate (Albuterol 2.5 Mg/3 Ml Vial.Neb.) 2.5 mg INHALATION Q6HWA.RT [facility] Last Admin: 06/21/20 06:50 Dose: 2.5 mg Documented by: Amlodipine Besylate (Amlodipine 5 Mg Tablet) 5 mg GT DAILY [facility] Last Admin: 06/21/20 09:41 Dose: 5 mg Documented by: Aspirin (Aspirin 81 Mg Tab.Chew) 81 mg GT DAILY [facility] Last Admin: 06/21/20 09:41 Dose: 81 mg Documented by: Atorvastatin Calcium (Atorvastatin Calcium 10 Mg Tablet) 5 mg GT QHS [facility] Benztropine Mesylate (Benztropine 2 Mg Tablet) 1 mg GT BID [facility] Last Admin: 06/21/20 09:41 Dose: 1 mg Documented by: Budesonide (Budesonide Respules 0.5 Mg/2 Ml Ampul.Neb.) 0.5 mg INHALATION Q12H.RT [facility] Last Admin: 06/21/20 06:50 Dose: 0.5 mg Documented by: Enoxaparin Sodium (Enoxaparin 40 Mg/0.4 Ml Syringe) 40 mg SC DAILY [facility] Last Admin: 06/21/20 09:42 Dose: 40 mg Documented by: Enteral Nutritional Formula (Jevity 1.5. 1,000 Ml Bottle) 300 ml GT ACHS [facility] Ceftriaxone Sodium (Rocephin) 1 gm in 50 mls @ 100 mls/hr IV Q24H BLESSING Sodium Chloride () 250 mls @ 15 mls/hr IV .[id number] PRN PRN Reason: Saline Flush Sodium Chloride () 250 mls @ 15 mls/hr IV .[id number] PRN PRN Reason: Additional IVPB Infusion Insulin Human Lispro (Insulin Lispro 100 Unit/Ml Insuln.Pen) 0 unit SC ACHS [facility]; Protocol Last Admin: 06/21/20 11:44 Dose: Not Given Documented by: Lisinopril (Lisinopril 40 Mg Tablet) 40 mg GT DAILY [facility] Last Admin: 06/21/20 09:41 Dose: 40 mg Documented by: Magnesium Hydroxide (Magnesium Hydroxide 30 Ml Udc) 30 ml GT DAILY PRN PRN PRN Reason: Constipation Metformin HCl (Metformin Hcl 500 Mg Tablet) 500 mg GT BIDCM [facility] Last Admin: 06/21/20 09:42 Dose: 500 mg Documented by: Multivitamins (Multivitamins,Therapeutic Tablet) 1 tablet GT DAILYCM [facility] Last Admin: 06/21/20 09:42 Dose: 1 tablet Documented by: Olanzapine (Olanzapine 10 Mg Tablet) 15 mg GT QHS [facility] Ondansetron HCl (Ondansetron 4 Mg/2 Ml Vial) 4 mg IV Q8H PRN PRN PRN Reason: NAUSEA/VOMITING Oxybutynin Chloride (Oxybutynin 5 Mg Tablet) 10 mg GT DAILY [facility] Last Admin: 06/21/20 09:41 Dose: 10 mg Documented by: Sodium Chloride (0.9% Saline Lock 10 Ml Syringe) 10 - 40 ml IV UD PRN PRN Reason: SALINE FLUSH Last Admin: 06/21/20 02:44 Dose: 10 ml Documented by: STROKE Vital Signs/Narrative: Vital Signs Temp Pulse Resp BP Pulse Ox 06/21/20 10:20 98.4 F 81 20 H 110/60 95 06/21/20 10:00 87 06/21/20 09:45 92 Medical Necessity - Tobacco Use Smoking Status: Never smoker Assessment/Plan All Active Problems Hypotension (Acute) Infectious encephalopathy (Acute) Acute prerenal azotemia (Acute) Delirium (Acute) UTI (urinary tract infection) (Acute) #Acute complicated UTI on IV ceftriaxone UA showed 2+ bacteria, blood and urine cultures pending #Acute metabolic encephalopathy due ot UTI resolved. Patient now alert and oriented. will monitor #Afib: rate controlled. seems she used to be on xarelto, it is not clear why she is no longer on xarelto. #Hypertension: on norvasc and lisinopril #History of achalasia: Has peg tube in place. on tube feeds. Nutrition on board #Type 2 diabetes mellitus: on metforming. ISS. Acuchecsk ACHS DVT prophylaxis: on lovenox Code status: full code. Inpatient E&M: 81484 Subs Hosp L2
--- NOTE | 2020-06-21 14:13 | CASEMGMT ---
Social Work Note Pt is listed as being from [facility]. SARA reviewed chart, pt with some confusion. SARA placed a call to pt's niece Cheryl. Cheryl states they are still trying to get things arranged for pt to return home but at this time, plan is for pt to return to [facility]. SW in to speak with pt. SARA introduced self and role at [facility]. Pt is alert to name and place, with prompting alert to time. SARA introduced self and role at [facility]. Pt confirms she came from [facility] and is agreeable to return. SARA placed a call to Saba at [facility]. Saba states pt is able to return, can return without a pre-cert. SARA faxed updated clinicals to [facility]. Plan: [facility] when medically cleared Madelyn Jay [employer]ITY FUNDRAISER, ARMORED CAR GUARD AND DRIVER
[2020-06-21] MEDS: Jevity 1.5. 1,000 ML Bottle 300 ML GT ×2 (17:02→22:36)
[2020-06-21 17:05] LABS: Bedside Glucose 98 mg/dL (70-110)
[2020-06-21] MEDS: Atorvastatin Calcium 10 MG Tablet 5 MG GT (22:27)
[2020-06-21] MEDS: OLANZapine 10 MG Tablet 15 MG GT (22:27)
[2020-06-21 23:01] LABS: Bedside Glucose 94 mg/dL (70-110)
[2020-06-22] VITALS (12 sets, daily range): BP systolic 108–151; BP diastolic 63–67; PULSE 71–101; RESP 18–22; TEMP 36.5–37.2; O2SAT 93–96
[2020-06-22] MEDS: Jevity 1.5. 1,000 ML Bottle 300 ML GT ×4 (06:35→22:54)
[2020-06-22 06:50] LABS: Absolute Lymphocyte Count 1.08 X10^3/uL (0.83-4.51); Absolute Neutrophil Count 4.5 X10^3/uL (2.0-7.7); Basophil# 0.05 X10^3/uL; Basophil% 0.8 % (0-1); Eosinophil# 0.01 X10^3/uL; Eosinophils% 0.2 % (0-5); Hemoglobin 10.7 g/dL (12.0-15.0); Lymphocyte # 1.08 X10^3/ul (4.0); Lymphocyte % 17.8 % (19-41); Mean Corp Hgb Conc 30.6 g/dL (32-36); Mean Corpuscular Hgb 27.4 pg (27.0-32.0); Mean Corpuscular Volume 89.5 fL (81-99); Mean Platelet Vol. 11.3 fl (6.2-12.0); Monocyte# 0.48 X10^3/uL; Monocyte% 7.9 % (0-10); NRBC Flagged by Analyzer 0 % (0-5); Neutrophil # 4.45 X10^3/uL (2.7-7.7); Neutrophil % 73.1 % (47-70); Platelet Count 244 K/mm3 (150-450); RBC Distribution Width CV 14.6 % (11.6-14.6); RBC Distribution Width SD 46.5 fl (35.1-43.9); Red Blood Count 3.91 M/mm3 (4.2-5.4); White Blood Count 6.1 K/mm3 (4.4-11.0)
[2020-06-22 07:01] LABS: Bedside Glucose 90 mg/dL (70-110)
[2020-06-22] MEDS: Budesonide Respules 0.5 MG/2 ML AMPUL.NEB. INHALATION ×2 (07:17→19:39)
[2020-06-22] MEDS: Albuterol 2.5 MG/3 ML VIAL.NEB. INHALATION ×3 (07:17→19:39)
[2020-06-22 07:21] LABS: Anion Gap 3 (5-15); BUN 37 mg/dL (7-18); BUN/Creat Ratio 81.5 RATIO (10-20); Calcium,Total 8.3 mg/dL (8.5-10.1); Chloride 112 mmol/L (98-107); Creatinine, Serum 0.45 mg/dL (0.55-1.02); EST Glomerular Filtration Rate 147 mL/min (>60); Est Glom Filt Rate - Afr Amer 177 mL/min (>60); Estimated Creatinine Clearance 47.79 ml/min; Glucose 91 mg/dL (74-106); Potassium 4.3 mmol/L (3.5-5.1); Sodium Level 141 mmol/L (136-145)
[2020-06-22] MEDS: Aspirin 81 MG TAB.CHEW GT (09:27)
[2020-06-22] MEDS: metFORMIN HCl 500 MG Tablet GT ×2 (09:27→16:33)
[2020-06-22] MEDS: amLODIPine 5 MG Tablet GT (09:28)
[2020-06-22] MEDS: Multivitamins,Therapeutic Tablet 1 TABLET GT (09:28)
[2020-06-22] MEDS: Benztropine 2 MG Tablet 1 MG GT ×2 (09:29→22:34)
[2020-06-22] MEDS: Lisinopril 40 MG Tablet GT (09:29)
[2020-06-22] MEDS: Enoxaparin 40 MG/0.4 ML Syringe SC (09:29)
[2020-06-22] MEDS: Oxybutynin 5 MG Tablet 10 MG GT (09:29)
--- NOTE | 2020-06-22 10:33 | CASEMGMT ---
Addendum entered by Madelyn Jay 06/22/20 14:30: SARA faxed COVID test and PT/OT to [facility]. SW placed COVID screening tool on pt's chart. Original Note: Social Work Note Plan is for pt to discharge back to [facility] tomorrow. SARA placed a call to Saba at [facility] and updated her. Saba states understanding, states pt is able to discharge to [facility]. SARA placed a call to pt's niece Cheryl and updated her that plan is for to pt to discharge to [facility] tomorrow. Cheryl states understanding. SARA placed Green sheet and transportation form on pt's chart. Plan: Return to [facility] when medically cleared Madelyn Jay TRAY CASTING MACHINE OPERATOR, CHIEF EXECUTIVE OFFICER
--- NOTE | 2020-06-22 11:17 | PN_ITS ---
Patient Problems: Active and Suspected Problems Hypotension (Acute) Infectious encephalopathy (Acute) Acute prerenal azotemia (Acute) Delirium (Acute) UTI (urinary tract infection) (Acute) Subjective: Patient seen and examined. She was lying in bed. She was not really communicative though she was awake and alert answers did not want to answer questions. Unable to do review of systems. She has remained hemodynamically stable. Vitals/I&O's: Vital Signs Temp Pulse Resp BP Pulse Ox 97.7 F L 92 22 H 151/63 H 94 06/22/20 09:35 06/22/20 09:35 06/22/20 09:35 06/22/20 09:35 06/22/20 09:35 Oxygen Delivery Method Room Air Weight: 132 lb 6 oz Body Mass Index (BMI) 22.1 Finger Stick Blood Glucose 98 Intake and Output for Last 24 Hours 06/20/20 06/21/20 06/22/20 23:59 23:59 23:59 Intake Total 2816.67 / 2816.67 1180 / 1180 Output Total 0 / 0 Balance 2816.67 / 2816.67 1180 / 1180 General: Alert, not cooperative. No apparent distress HEENT: Atraumatic, PERRLA, EOMI, Normocephalic Oral: Dry Mucosa Neck: Supple, No JVD, Negative Carotid Bruits Lungs: Clear to auscultation, Normal air movement, No rhonchi Cardiovascular: Regular rate, Regular Rhythm, Normal S1, Normal S2, No murmurs Abdomen: Bowel Sounds Present, Soft, Non Tender, Non-Distended, No Hepato-splenomegaly Extremities: No clubbing, No cyanosis, No edema, Capillary Refill Less than 3 Seconds Skin: No rashes, No breakdown Musculoskeletal: No Tenderness to Palpation of Joints or Extremities Lymphatic: No Cervical, Supraclavicular, or Inguinal Adenopathy Neurological: Cranial nerves II-XII grossly intact Psych/Mental Status: flat affect. Microbiology Past 72 Hours 06/21/20 00:40 Urine Catheter - Catheter Urine Culture - Preliminary GPC Poss Enterococcus sp Laboratory Results 06/21/20 11:28: POC Glucose 105 06/21/20 17:00: POC Glucose 98 06/21/20 22:41: POC Glucose 94 06/22/20 06:20: POC Glucose 90 06/22/20 06:27: WBC 6.1, RBC 3.91 L, Hgb 10.7 L, Hct 35.0 L, MCV 89.5 D, MCH 27.4, MCHC 30.6 L, RDW Std Deviation 46.5 H, RDW Coeff of Jesica 14.6, Plt Count 244, MPV 11.3, Immature Gran % (Auto) 0.200, Neut % (Auto) 73.1 H, Lymph % (Auto) 17.8 L, [place] % (Auto) 7.9, Eos % (Auto) 0.2, Baso % (Auto) 0.8, Absolute Neuts (auto) 4.5, Absolute Lymphs (auto) 1.08, Nucleated RBC % 0 06/22/20 06:27: Sodium 141, Potassium 4.3, Chloride 112 H, Carbon Dioxide 26.0, Anion Gap 3 L, BUN 37 H, Creatinine 0.45 L, Estim Creat Clear Calc 47.79, Est GFR (MDRD) Af Amer 177, Est GFR (MDRD) Non-Af 147, BUN/Creatinine Ratio 81.5 H, Glucose 91, Calcium 8.3 L Current Medications Al Hydroxide/Mg Hydroxide (Mag Hydrox/Al Hydrox/Simeth 30 Ml Udc) 30 ml GT Q4H PRN PRN PRN Reason: gi distress Albuterol Sulfate (Albuterol 2.5 Mg/3 Ml Vial.Neb.) 2.5 mg INHALATION Q2H PRN PRN PRN Reason: Shortness of breath, wheezing Albuterol Sulfate (Albuterol 2.5 Mg/3 Ml Vial.Neb.) 2.5 mg INHALATION Q6HWA.RT [facility] Last Admin: 06/22/20 07:17 Dose: 2.5 mg Documented by: Amlodipine Besylate (Amlodipine 5 Mg Tablet) 5 mg GT DAILY [facility] Last Admin: 06/22/20 09:28 Dose: 5 mg Documented by: Aspirin (Aspirin 81 Mg Tab.Chew) 81 mg GT DAILY [facility] Last Admin: 06/22/20 09:27 Dose: 81 mg Documented by: Atorvastatin Calcium (Atorvastatin Calcium 10 Mg Tablet) 5 mg GT QHS [facility] Last Admin: 06/21/20 22:27 Dose: 5 mg Documented by: Benztropine Mesylate (Benztropine 2 Mg Tablet) 1 mg GT BID [facility] Last Admin: 06/22/20 09:29 Dose: 1 mg Documented by: Budesonide (Budesonide Respules 0.5 Mg/2 Ml Ampul.Neb.) 0.5 mg INHALATION Q12H.RT [facility] Last Admin: 06/22/20 07:17 Dose: 0.5 mg Documented by: Calamine/Phenol (Menthol/Lanolin/Calamine/Znox 113 Gm Tube) 1 applic TOPICAL BID [facility]; Protocol Enoxaparin Sodium (Enoxaparin 40 Mg/0.4 Ml Syringe) 40 mg SC DAILY [facility] Last Admin: 06/22/20 09:29 Dose: 40 mg Documented by: Enteral Nutritional Formula (Jevity 1.5. 1,000 Ml Bottle) 300 ml GT ACHS [facility] Last Admin: 06/22/20 06:35 Dose: 300 ml Documented by: Ceftriaxone Sodium (Rocephin) 1 gm in 50 mls @ 100 mls/hr IV Q24H [facility] Last Infusion: 06/21/20 23:22 Dose: Infused Documented by: Sodium Chloride () 250 mls @ 15 mls/hr IV .[id number] PRN PRN Reason: Saline Flush Last Admin: 06/21/20 22:28 Dose: 15 mls/hr Documented by: Sodium Chloride () 250 mls @ 15 mls/hr IV .[id number] PRN PRN Reason: Additional IVPB Infusion Insulin Human Lispro (Insulin Lispro 100 Unit/Ml Insuln.Pen) 0 unit SC [facility]; Protocol Last Admin: 06/22/20 06:22 Dose: Not Given Documented by: Lisinopril (Lisinopril 40 Mg Tablet) 40 mg GT DAILY [facility] Last Admin: 06/22/20 09:29 Dose: 40 mg Documented by: Magnesium Hydroxide (Magnesium Hydroxide 30 Ml Udc) 30 ml GT DAILY PRN PRN PRN Reason: Constipation Metformin HCl (Metformin Hcl 500 Mg Tablet) 500 mg GT BIDCM [facility] Last Admin: 06/22/20 09:27 Dose: 500 mg Documented by: Multivitamins ([facility],Therapeutic [facility]t) [facility] Admin: 06/22/20 09:28 Dose: 1 tablet Documented by: Nystatin (Nystatin Powder 15gm Bottle) 1 applic TOPICAL BID [facility]; Protocol Olanzapine (Olanzapine 10 Mg Tablet) 15 mg GT QHS [facility] Last Admin: 06/21/20 22:27 Dose: 15 mg Documented by: Ondansetron HCl (Ondansetron 4 Mg/2 Ml Vial) 4 mg IV Q8H PRN PRN PRN Reason: NAUSEA/VOMITING Oxybutynin Chloride (Oxybutynin 5 Mg Tablet) 10 mg GT DAILY [facility] Last Admin: 06/22/20 09:29 Dose: 10 mg Documented by: Sodium Chloride (0.9% Saline Lock 10 Ml Syringe) 10 - 40 ml IV UD PRN PRN Reason: SALINE FLUSH Last Admin: 06/21/20 02:44 Dose: 10 ml Documented by: STROKE Vital Signs/Narrative: Vital Signs Temp Pulse Resp BP Pulse Ox 06/22/20 09:35 97.7 F L 92 22 H 151/63 H 94 Medical Necessity - Tobacco Use Smoking Status: Never smoker Assessment/Plan All Active Problems Hypotension (Acute) Infectious encephalopathy (Acute) Acute prerenal azotemia (Acute) Delirium (Acute) UTI (urinary tract infection) (Acute) #Acute complicated UTI * on IV ceftriaxone * UA showed 2+ bacteria, * blood and urine cultures pending #Acute metabolic encephalopathy due ot UTI * resolved. patient alert but not communicative today. * will monitor * #Afib: rate controlled. seems she used to be on xarelto, it is not clear why she is no longer on xarelto. #Hypertension: on norvasc and lisinopril #History of achalasia: Has peg tube in place. on tube feeds. Nutrition on board #Type 2 diabetes mellitus: on metforming. ISS. Accuchecks ACHS DVT prophylaxis: on lovenox Code status: full code. Inpatient E&M: 42294 Subs Hosp L2
[2020-06-22] MEDS: Insulin Lispro 100 UNIT/ML INSULN.PEN SC (12:13)
[2020-06-22 12:41] LABS: Bedside Glucose 155 mg/dL (70-110)
[2020-06-22] MEDS: LORazepam 2 MG/ML Syringe 1 MG IV (16:33)
[2020-06-22 17:20] LABS: Bedside Glucose 125 mg/dL (70-110)
[2020-06-22] MEDS: OLANZapine 10 MG Tablet 15 MG GT (22:35)
[2020-06-22] MEDS: Atorvastatin Calcium 10 MG Tablet 5 MG GT (22:35)
[2020-06-22] MEDS: Menthol/Lanolin/Calamine/Znox 113 GM Tube 1 APPLIC TOPICAL (22:36)
[2020-06-22] MEDS: Nystatin Powder 15gm Bottle 1 APPLIC TOPICAL (22:37)
[2020-06-22] MEDS: Ceftriaxone 1 GM/50 ML BAG IV (22:42)
[2020-06-22 23:11] LABS: Bedside Glucose 113 mg/dL (70-110)
[2020-06-23 02:00] VITALS: PULSE 73
[2020-06-23 05:20] VITALS: PULSE 72
[2020-06-23 06:20] VITALS: BP 138/66; PULSE 73; RESP 18; TEMP 37; O2SAT 97
[2020-06-23] MEDS: Jevity 1.5. 1,000 ML Bottle 300 ML GT (06:27)
[2020-06-23] MEDS: Budesonide Respules 0.5 MG/2 ML AMPUL.NEB. INHALATION (06:48)
[2020-06-23] MEDS: Albuterol 2.5 MG/3 ML VIAL.NEB. INHALATION (06:49)
[2020-06-23 06:51] VITALS: PULSE 76; RESP 17; O2SAT 93
[2020-06-23 06:56] LABS: Bedside Glucose 96 mg/dL (70-110)
[2020-06-23 07:21] LABS: Absolute Lymphocyte Count 1.13 X10^3/uL (0.83-4.51); Absolute Neutrophil Count 3.6 X10^3/uL (2.0-7.7); Basophil# 0.03 X10^3/uL; Basophil% 0.6 % (0-1); Eosinophil# 0.01 X10^3/uL; Eosinophils% 0.2 % (0-5); Hematocrit 40.6 % (37-47); Hemoglobin 12.4 g/dL (12.0-15.0); Lymphocyte # 1.13 X10^3/ul (4.0); Lymphocyte % 21.5 % (19-41); Mean Corp Hgb Conc 30.5 g/dL (32-36); Mean Corpuscular Hgb 27.3 pg (27.0-32.0); Mean Corpuscular Volume 89.2 fL (81-99); Mean Platelet Vol. 10.8 fl (6.2-12.0); Monocyte# 0.47 X10^3/uL; NRBC Flagged by Analyzer 0 % (0-5); Neutrophil # 3.58 X10^3/uL (2.7-7.7); Neutrophil % 68.1 % (47-70); Platelet Count 236 K/mm3 (150-450); RBC Distribution Width CV 14.4 % (11.6-14.6); RBC Distribution Width SD 45.7 fl (35.1-43.9); Red Blood Count 4.55 M/mm3 (4.2-5.4); White Blood Count 5.3 K/mm3 (4.4-11.0)
[2020-06-23 07:30] VITALS: PULSE 87
[2020-06-23 07:38] LABS: Anion Gap 4 (5-15); BUN 30 mg/dL (7-18); BUN/Creat Ratio 54.4 RATIO (10-20); Calcium,Total 8.4 mg/dL (8.5-10.1); Chloride 109 mmol/L (98-107); Creatinine, Serum 0.55 mg/dL (0.55-1.02); EST Glomerular Filtration Rate 117 mL/min (>60); Est Glom Filt Rate - Afr Amer 142 mL/min (>60); Estimated Creatinine Clearance 47.79 ml/min; Glucose 129 mg/dL (74-106); Potassium 3.9 mmol/L (3.5-5.1); Sodium Level 139 mmol/L (136-145)
--- NOTE | 2020-06-23 09:17 | PCM.TXEXTCAR ---
- Diet 06/21/20 02:27 Diet: Nothing Per Oral - Routine Orders/Code Status Enema Type: Fleetz Enema Frequency: Daily PRN Suppository Type: Dulcolax 10mg Suppository Frequency: Daily PRN O2 Frequency: PRN Keep PO Greater than or Equal to (%): 90 - Wound(s) R. witt Wound Type: Abrasion back Wound Type: Abrasion bilateral arms Wound Type: Abrasion R. second toe Wound Type: Abrasion forehead Wound Type: Abrasion - Therapies Weight Bearing: Weight bearing as tolerated Physical Therapy: Eval and Treat Occupational Therapy: Eval and Treat - Allergies/Procedures Done in Hospital Allergies/Adverse Reactions: Allergies No Known Allergies Allergy (Verified 06/20/20 23:46) Procedures: None - Type of Care/Length of Stay Estimated LOS: More Than 30 Days Type of Care Needed: Skilled Rehab Potential: Fair Prognosis: Fair - Additional Orders/Day of Discharge Day of Discharge: 06/23/20 - Dietary and Speech Recommendations Dietitian Recommendations/Changes: 1.)Pt will remain NPO unless cleared by TRANSPORTATION PLANNER for safe PO nutrition. 2.)TF will meet~100% estimated nutrition needs. 3.)Daily Weights. 4.)Will increase current TF bolus from 250ml to 300ml Jevity 1.5 Hermes 4 times per day with 120ml water flush before and after each feed to provide 1800 calories, 77 gm pro and 1872 ml free water per day. - Follow Up Care Primary Care Physician: Jose Brown MD [Primary Care Provider] - Please follow up with your Primary Care Physician in: 1-2 weeks
--- NOTE | 2020-06-23 09:19 | DS.PCM_ITS ---
Discharge Date and Diagnosis - Problem List Patient Problems: Active and Suspected Problems Hypotension (Acute) Infectious encephalopathy (Acute) Acute prerenal azotemia (Acute) Delirium (Acute) UTI (urinary tract infection) (Acute) Date of Admission: 06/21/20 Date of Discharge: 06/23/20 - Primary Discharge Diagnosis Acute Problems: Active Problems Hypotension (Acute) Infectious encephalopathy (Acute) Acute prerenal azotemia (Acute) Delirium (Acute) UTI (urinary tract infection) (Acute) - Secondary Discharge Diagnosis Chronic Problems: Chronic Problems Hypertension (Chronic) Hyperlipidemia (Chronic) Chronic insomnia (Chronic) Diabetes mellitus, type II (Chronic) Achalasia (Chronic) Hospital Course and Treatment Imaging Results: Diagnostic Data Chest X-Ray 06/21/20 00:30 IMPRESSION: No acute cardiopulmonary disease. Electronically Signed: Ximena Quiroga MD at 1:07 EDT , Service support , Operations: None Procedures: None Summary of Care Provided: The patient is a 65 year old F with a past medical history as outlined who was admitted from her care home on 06/21/2020 for aggressive behavior. She was noted to be confused as well. When she was brought into the ED, she could not give much of a history. She had recently been diagnosed with UTI and admitted about a week prior to admission. On admission this time, urine showed 2+ bacteria with greater than 100 WBC and urine was also cloudy with elevated leukocyte esterase. Chest x-ray was negative. She was admitted and managed for acute metabolic encephalopathy due to acute complicated UTI. She was started on IV ceftriaxone. Urine and blood cultures were obtained. Blood cultures were negative urine culture grew Enterococcus faecalis which was sensitive to nitrofurantoin. Patient remained stable and her mentation improved. She was discharged back to her care home on 06/23/2020 with a prescription for p.o. nitrofurantoin 100 mg every 6 hours for 5 days. She is to follow-up with her primary care doctor within 1 to 2 weeks. Patient seen and examined prior to discharge. She was alert but not answering any questions. Labs and vitals reviewed. Home medication reviewed and reconciled. O/E: Vital Signs Temp Pulse Resp BP Pulse Ox 98.6 F 87 17 138/66 H 93 06/23/20 06:20 06/23/20 07:30 06/23/20 06:51 06/23/20 06:20 06/23/20 06:51 ] General: Alert, Oriented x3, Cooperative, No apparent distress HEENT: Atraumatic, PERRLA, EOMI, Normocephalic Oral: Dry Mucosa Neck: Supple, No JVD, Negative Carotid Bruits Lungs: Clear to auscultation, Normal air movement, No rhonchi Cardiovascular: Regular rate, Regular Rhythm, Normal S1, Normal S2, No murmurs Abdomen: Bowel Sounds Present, Soft, Non Tender, Non-Distended, No Hepato- splenomegaly Extremities: No clubbing, No cyanosis, No edema, Capillary Refill Less than 3 Seconds Skin: No rashes, No breakdown Musculoskeletal: No Tenderness to Palpation of Joints or Extremities Lymphatic: No Cervical, Supraclavicular, or Inguinal Adenopathy Neurological: Cranial nerves II-XII grossly intact Psych/Mental Status: Normal Affect, Appropriate, Alert and oriented to time, place, person, mood and affect Plan is for discharge back to her SNF today Patient Problems: Active and Suspected Problems Hypotension (Acute) Infectious encephalopathy (Acute) Acute prerenal azotemia (Acute) Delirium (Acute) UTI (urinary tract infection) (Acute) - Physical Exam Vitals/I&O's: Vital Signs Temp Pulse Resp BP Pulse Ox 98.6 F 76 17 138/66 H 93 06/23/20 06:20 06/23/20 06:51 06/23/20 06:51 06/23/20 06:20 06/23/20 06:51 Oxygen Delivery Method Room Air Weight: 132 lb 6 oz Body Mass Index (BMI) 22.1 Finger Stick Blood Glucose 98 Intake and Output for Last 24 Hours 06/21/20 06/22/20 06/23/20 23:59 23:59 23:59 Intake Total 2816.67 / 2816.67 3714 / 3714 780 / 780 Output Total 0 / 0 Balance 2816.67 / 2816.67 3714 / 3714 780 / 780 Microbiology Past 72 Hours 06/21/20 00:40 Urine Catheter - Catheter Urine Culture - Final Enterococcus faecalis 06/21/20 01:08 Blood Culture (Wb) - Left Forearm Blood Culture - Preliminary No growth in 48 hours. 06/22/20 12:00 Mucosa - Nose SARS-CoV-2 Antigen (Rapid) - Final Laboratory Results 06/22/20 12:09: POC Glucose 155 H 06/22/20 16:23: POC Glucose 125 H 06/22/20 22:46: POC Glucose 113 H 06/23/20 06:23: POC Glucose 96 06/23/20 07:07: WBC 5.3, RBC 4.55, Hgb 12.4, Hct 40.6, MCV 89.2, MCH 27.3, MCHC 30.5 L, RDW Std Deviation 45.7 H, RDW Coeff of Jesica 14.4, Plt Count 236, MPV 10.8, Immature Gran % (Auto) 0.600, Neut % (Auto) 68.1, Lymph % (Auto) 21.5, [place] % (Auto) 9.0, Eos % (Auto) 0.2, Baso % (Auto) 0.6, Absolute Neuts (auto) 3.6, Absolute Lymphs (auto) 1.13, Nucleated RBC % 0 06/23/20 07:07: Sodium 139, Potassium 3.9, Chloride 109 H, Carbon Dioxide 26.0, Anion Gap 4 L, BUN 30 H, Creatinine 0.55, Estim Creat Clear Calc 47.79, Est GFR (MDRD) Af Amer 142, Est GFR (MDRD) Non-Af 117, BUN/Creatinine Ratio 54.4 H, Glucose 129 H, Calcium 8.4 L Current Medications Al Hydroxide/Mg Hydroxide (Mag Hydrox/Al Hydrox/Simeth 30 Ml Udc) 30 ml GT Q4H PRN PRN PRN Reason: gi distress Albuterol Sulfate (Albuterol 2.5 Mg/3 Ml Vial.Neb.) 2.5 mg INHALATION Q2H PRN PRN PRN Reason: Shortness of breath, wheezing Albuterol Sulfate (Albuterol 2.5 Mg/3 Ml Vial.Neb.) 2.5 mg INHALATION Q6HWA.RT BLESSING Last Admin: 06/23/20 06:49 Dose: 2.5 mg Documented by: Amlodipine Besylate (Amlodipine 5 Mg Tablet) 5 mg GT DAILY BLESSING Last Admin: 06/22/20 09:28 Dose: 5 mg Documented by: Aspirin (Aspirin 81 Mg Tab.Chew) 81 mg GT DAILY [facility] Last Admin: 06/22/20 09:27 Dose: 81 mg Documented by: Atorvastatin Calcium (Atorvastatin Calcium 10 Mg Tablet) 5 mg GT QHS [facility] Last Admin: 06/22/20 22:35 Dose: 5 mg Documented by: Benztropine Mesylate (Benztropine 2 Mg Tablet) 1 mg GT BID [facility] Last Admin: 06/22/20 22:34 Dose: 1 mg Documented by: Budesonide (Budesonide Respules 0.5 Mg/2 Ml Ampul.Neb.) 0.5 mg INHALATION Q12H.RT [facility] Last Admin: 06/23/20 06:48 Dose: 0.5 mg Documented by: Calamine/Phenol (Menthol/Lanolin/Calamine/Znox 113 Gm Tube) 1 applic TOPICAL BID [facility]; Protocol Last Admin: 06/22/20 22:36 Dose: 1 applic Documented by: Enoxaparin Sodium (Enoxaparin 40 Mg/0.4 Ml Syringe) 40 mg SC DAILY [facility] Last Admin: 06/22/20 09:29 Dose: 40 mg Documented by: Enteral Nutritional Formula ([employer] 1.5. 1,000 Ml Bottle) 300 ml GT ACHS [facility] Last Admin: 06/23/20 06:27 Dose: 300 ml Documented by: Ceftriaxone Sodium (Rocephin) 1 gm in 50 mls @ 100 mls/hr IV Q24H [facility] Last Infusion: 06/22/20 23:43 Dose: Infused Documented by: Sodium Chloride () 250 mls @ 15 mls/hr IV .[id number] PRN PRN Reason: Saline Flush Last Infusion: 06/22/20 14:04 Dose: 0 mls/hr Documented by: Sodium Chloride () 250 mls @ 15 mls/hr IV .[id number] PRN PRN Reason: Additional IVPB Infusion Insulin Human Lispro (Insulin Lispro 100 Unit/Ml Insuln.Pen) 0 unit SC ACHS [facility]; Protocol Last Admin: 06/23/20 06:24 Dose: Not Given Documented by: Lisinopril (Lisinopril 40 Mg Tablet) 40 mg GT DAILY [facility] Last Admin: 06/22/20 09:29 Dose: 40 mg Documented by: Magnesium Hydroxide (Magnesium Hydroxide 30 Ml Udc) 30 ml GT DAILY PRN PRN PRN Reason: Constipation Metformin HCl (Metformin Hcl 500 Mg Tablet) 500 mg GT BIDCM [facility] Last Admin: 06/22/20 16:33 Dose: 500 mg Documented by: Multivitamins ([facility]ivitamins,Therapeutic Tablet) [facility] Admin: 06/22/20 09:28 Dose: 1 tablet Documented by: Nystatin (Nystatin Powder 15gm Bottle) 1 applic TOPICAL BID [facility]; Protocol Last Admin: 06/22/20 22:37 Dose: 1 applic Documented by: Olanzapine ([facility] 10 Mg Tablet) [facility] Admin: 06/22/20 22:35 Dose: 15 mg Documented by: Ondansetron HCl (Ondansetron 4 Mg/2 Ml Vial) 4 mg IV Q8H PRN PRN PRN Reason: NAUSEA/VOMITING Oxybutynin Chloride (Oxybutynin 5 Mg Tablet) 10 mg GT DAILY [facility] Last Admin: 06/22/20 09:29 Dose: 10 mg Documented by: Sodium Chloride (0.9% Saline Lock 10 Ml Syringe) 10 - 40 ml IV UD PRN PRN Reason: SALINE FLUSH Last Admin: 06/21/20 02:44 Dose: 10 ml Documented by: Discharge Diet: - - on tube feeds via PEG tube Discharge Activity: Return to Normal Activity Weight Bearing Status: Weight bearing as tolerated Home Medications: Medications to take at Discharge Lisinopril 40 mg GT DAILY 12/01/13 Olanzapine 15 mg GT QHS 12/01/13 Aspirin [Aspir-Low] 81 mg GT DAILY 05/18/19 Benztropine [Cogentin] 1 mg GT BID 05/18/19 Calcium Carbonate/Vitamin D3 [Calcium 600 + Vit D Tablet] 1 ea GT BID 05/18/19 Metformin HCl 500 mg GT BID 05/18/19 Oxybutynin [Ditropan] 10 mg GT DAILY 05/18/19 Simvastatin 10 mg GT QHS 05/18/19 Multivitamin [Daily Griffin] 1 ea GT DAILY 02/05/20 Albuterol Sulfate [Albuterol Sulfate HFA] 2 puff IH 4X/DAY 04/01/20 Bisacodyl 10 mg RC DAILY PRN PRN 04/01/20 Budesonide/Formoterol Fumarate [Symbicort 80-4.5 Mcg Inhaler] 2 puff IH BID 04/01/20 Guaifenesin [Robitussin] 10 ml GT Q4H PRN PRN 04/01/20 Lactose-Reduced Food/Fiber [Jevity 1.5 Hermes Liquid] 250 ml GT ACHS 04/01/20 Mag Hydrox/Al Hydrox/Simeth [Mylanta II] 30 ml GT Q4H PRN PRN 04/01/20 Acetaminophen [Tylenol Tablet] 650 mg GT Q4H PRN PRN 06/08/20 Debrox 6 drp EACH EAR DAILY PRN 06/08/20 Magnesium Hydroxide [Milk Of Magnesia] 30 ml GT DAILY PRN PRN 06/08/20 Menthol/Lanolin/Calamine/Znox [Calmoseptine Ointment] 1 applic TOPICAL BID 06/08/20 Amlodipine [Norvasc] 5 mg PO DAILY tablet 06/12/20 Nitrofurantoin Macrocrystal [Nitrofurantoin] 100 mg PO [id number] #20 capsule 06/23/20 Following Prescriptions Were Given to Patient: Nitrofurantoin Macrocrystal [Nitrofurantoin] 100 mg PO [id number] #20 capsule Prescription Printed Primary Care Physician: Jose Brown MD [Primary Care Provider] - Please follow up with your Primary Care Physician in: 1-2 weeks Disposition: Group Home facility Minutes spent on discharge:: 40 Patient Condition:: Stable Medical Necessity - Tobacco Use Smoking Status: Never smoker Meaningful Use Info Meaningful Use Diagnoses (Choose all that apply): None applicable Inpatient E&M: 15139 Disch Hosp
[2020-06-23] MEDS: Lisinopril 40 MG Tablet GT (09:45)
[2020-06-23] MEDS: Benztropine 2 MG Tablet 1 MG GT (09:46)
[2020-06-23] MEDS: Oxybutynin 5 MG Tablet 10 MG GT (09:46)
[2020-06-23] MEDS: metFORMIN HCl 500 MG Tablet GT (09:47)
[2020-06-23] MEDS: amLODIPine 5 MG Tablet GT (09:47)
[2020-06-23] MEDS: Menthol/Lanolin/Calamine/Znox 113 GM Tube 1 APPLIC TOPICAL (09:48)
[2020-06-23] MEDS: Enoxaparin 40 MG/0.4 ML Syringe SC (09:48)
[2020-06-23] MEDS: Nystatin Powder 15gm Bottle 1 APPLIC TOPICAL (09:48)
[2020-06-23] MEDS: Aspirin 81 MG TAB.CHEW GT (09:49)
== END 2020-06-23 10:36 | disposition skilled nursing facility (03) | DRG 463 ==
LOC: ED 06-21 01:04 → MS3 06-21 02:11
PROVIDERS: Admitting Provider Hospitalist; Emergency Provider Emergency Medicine; PCP Internal Medicine; Visit Provider Student in an Organized Health Care Education/Training Program
DX: N30.00 Acute cystitis without hematuria (principal); G93.41 Metabolic encephalopathy; E11.9 Type 2 diabetes mellitus without complications; I48.20 Chronic atrial fibrillation, unspecified; I10 Essential (primary) hypertension; K22.0 Achalasia of cardia; Z93.1 Gastrostomy status; Z79.899 Other long term (current) drug therapy; Z79.84 Long term (current) use of oral hypoglycemic drugs; B95.2 Enterococcus as the cause of diseases classified elsewhere; E44.0 Moderate protein-calorie malnutrition; Z68.26 Body mass index [BMI] 26.0-26.9, adult
CPT/HCPCS: 36415; 71045; 80048; 80053; 81001; 82962; 83605; 85025; 87040; 87077; 87086; 87088; 87186; 87426; 94640; 97162; 97166; 97802; 99285; J7030; J7050; P9612; A4216

== ENCOUNTER 2020-06-29 18:05 | Emergency (ER) | payer MEDICAID, SELFPAY ==
[2020-06-21 12:30] VITALS: BMI 22.1
[2020-06-29 18:07] VITALS: BP 136/73; PULSE 94; RESP 17; TEMP 37; O2SAT 94; BMI 27.4
[2020-06-29 18:10] VITALS: BP 136/73; PULSE 97; RESP 18; O2SAT 93
--- NOTE | 2020-06-29 18:19 | EKG12_ITS ---
Test Reason : DYSRHYTHMIA Blood Pressure : / mmHG Vent. Rate : 099 BPM Atrial Rate : 099 BPM P-R Int : 128 ms QRS Dur : 080 ms QT Int : 370 ms P-R-T Axes : 052 023 030 degrees QTc Int : 474 ms Sinus rhythm with Premature atrial complexes Otherwise normal ECG Confirmed by IRINEO RAO, GERA ([id number]), fashion editor JOSE GEORGE ([id number]) on 07/03/2020 9:19:03 AM Referred By: GONZALO Confirmed By:LAILA CABELLO MD
--- NOTE | 2020-06-29 18:26 | ED.DCSUM_ITS ---
History of Present Illness Chief Complaint: Mental Health Informant: SNF Narrative: Patient sent here from [facility] for clearance to be transferred to [facility]. She is accepted there. Reported increasing delusions with psychotic behavior. Paperwork noted she was on 5-day treatment for UTI with no improved symptoms finished her dosing yesterday. Impression sent from [facility] requesting EKG, Covid testing, CMP for their acceptance. Patient denies fevers chest pains abdominal pain. Denies vomiting diarrhea. Denies any urinary symptoms. Past Medical History - Allergies and Home Meds Allergies/Adverse Reactions: Allergies No Known Allergies Allergy (Verified 06/29/20 18:06) Primary Care Physician: Jose Borwn MD [Primary Care Provider] - Past Medical History: - - Hypertension, hyperlipidemia, diabetes, insomnia Surgical History: - - Cholecystectomy. PEG tube placement. Smoking Status: Never smoker - Family History Maternal Family History: Reports: - - Patient denies any market maternal or paternal family history including heart disease, diabetes, cancer. Paternal Family History: Reports: - - Patient denies any market maternal or paternal family history including heart disease, diabetes, cancer. Review of Systems General: Denies: Chills, Fever, Sweats Eyes: Denies: Visual changes - bilaterally, Diplopia ENT: Denies: Rhinorrhea, Sore throat Cardiovascular: Denies: Chest pain, Palpitations Respiratory: Denies: Dyspnea, Cough, Dyspnea on exertion Gastrointestinal: Denies: Abdominal pain, Nausea, Vomiting, Diarrhea, Melena, Hematochezia Genitourinary: Denies: Dysuria, Hematuria, Frequency Musculoskeletal: Denies: Back pain, Extremity Pain Skin: Denies: Rash, Wounds Neurological: Denies: Headache, Weakness, Numbness Physical Exam Vital Signs/Narrative: Vital Signs Temp Pulse Resp BP Pulse Ox 06/29/20 18:10 97 18 136/73 H 93 06/29/20 18:07 98.6 F 94 17 136/73 H 94 Inital Vital Signs reviewed: Yes General: Well nourished, Well developed, No Acute Distress, - - Cooperative Head: Normocephalic, Atraumatic Eyes: Perrl, EOMI ENT: Moist mucous membranes, No rhinorrhea Neck: Supple, Nontender Cardiovascular: Regular rate, Regular rhythm, No murmurs Respiratory: No distress, CTA bilaterally, Chest nontender Abdomen: Soft, Nontender, Nondistended, Normal bowel sounds Back: Nontender, Normal Inspection Extremities: Nontender, No edema Skin: Normal color, No rash Neurological: Alert, Oriented x3, Cranial nerves II-XII grossly intact, Normal Strength, Normal Sensation Psychological: Normal affect, Normal Mood, - - Denies suicidal homicidal ideations.. Negative for: Agitated Diagnostic/Tx/Re-eval Abnormal Lab Results 06/29/20 18:30 Sodium 141 Potassium 3.8 Chloride 110 H Carbon Dioxide 25.0 Anion Gap 6 BUN 33 H Creatinine 0.58 Estim Creat Clear Calc 53.90 Est GFR (MDRD) Af Amer 134 Est GFR (MDRD) Non-Af 111 BUN/Creatinine Ratio 57.0 H Glucose 109 H Calcium 9.0 Total Bilirubin 0.40 AST 10 L ALT 17 Alkaline Phosphatase 109 Total Protein 7.3 Albumin 3.3 Globulin 4.0 Albumin/Globulin Ratio 0.8 L - EKG Initial EKG Interpretation: Sinus Rhythm - Sinus rhythm rate of 99, no ST or T wave changes, occasional PAC noted. - Medical Decision Making Patient nontoxic vital signs stable. Per requested clearance with EKG Covid testing and CMP per facility which was obtained. CMP normal. EKG normal. Covid testing negative. Initial plan for voluntary admission however patient was declining to sign the voluntary form. Social work evaluated pink slip filled out. Patient medically cleared. 2107: Patient accepted to [facility] [place] under the care of Dr. Chang. ED Disposition - Plan for ED Patient: Disposition: Psychiatric Hospital or Unit Diagnosis: Delusion Referrals: Jose Brown MD [Primary Care Provider] -
--- NOTE | 2020-06-29 18:34 | CM.ED ---
SOCIAL WORK Referral Source: Nursing/Dr. Bender Reason for Consult: Mental Health Clearance Received call from Abida with [facility]. Per Abida, has all information from [facility]. Patient requires medical clearance for placement. Abida states patient is her own person and will need to sign voluntary form. Abida to fax over copy of voluntary form for patient to sign. Abida requesting negative COVID-19 test, EKG, and CMP for clearance. Staff and Dr. Bender updated. Plan: Pending medical clearance and acceptance at [facility] Wil Romeo, COOK APPRENTICE, CEREAL CHEMIST
[2020-06-29 19:20] LABS: ALB/GLOB Ratio 0.8 RATIO (0.9-2.4); AST(SGOT) 10 U/L (15-37); Alanine Aminotransfer ALT/SGPT 17 U/L (13-56); Albumin, Serum 3.3 g/dL (3.2-5.0); Alkaline Phosphatase 109 U/L (45-117); Anion Gap 6 (5-15); BUN 33 mg/dL (7-18); Chloride 110 mmol/L (98-107); Creatinine, Serum 0.58 mg/dL (0.55-1.02); EST Glomerular Filtration Rate 111 mL/min (>60); Est Glom Filt Rate - Afr Amer 134 mL/min (>60); Glucose 109 mg/dL (74-106); Potassium 3.8 mmol/L (3.5-5.1); Protein, Total 7.3 g/dL (6.4-8.2); Sodium Level 141 mmol/L (136-145)
--- NOTE | 2020-06-29 19:50 | CM.ED ---
Social Work Consult SARA Null and and SARA Romeo met with patient in her assigned room. SW's called patient's name multiple time however, she did not respond however, staffing specialist indicated that she will answer questions selectively at her desire. SARA Null called Abida at [facility] [phone]. Advised that SW had faxed referral information. Advised that patient is not signing paperwork at this time however, is able to sign but answers question selectively. Asked if Application for Emergency Hospital Admission ([place]) would be sufficient and she said yes. Abida indicated she would present to MD but they had beds so did not foresee it being an issue.
--- NOTE | 2020-06-29 20:18 | CM.ED ---
SOCIAL WORK Call to Abida with [facility] to inquire about status of referral. Per Abida, will review with physician and get back to this worker. Plan: Pending acceptance at [facility] Wil Romeo, VEHICLE WASHER, AIRBRUSH PAINTER
[2020-06-29 20:23] VITALS: BP 131/73; PULSE 95; RESP 14; O2SAT 98
[2020-06-29 22:29] VITALS: PULSE 81; RESP 14; O2SAT 98
== END 2020-06-29 22:30 ==
PROVIDERS: Emergency Provider Emergency Medicine; PCP Internal Medicine
DX: F22 Delusional disorders (principal); E11.9 Type 2 diabetes mellitus without complications; I10 Essential (primary) hypertension; E78.5 Hyperlipidemia, unspecified
CPT/HCPCS: 80053; 87426; 93005; 99285

== ENCOUNTER 2020-08-21 05:00 | Outpatient (REF) | payer MEDICAID, SELFPAY ==
[2020-08-21 08:33] LABS: Hematocrit 37.7 % (37-47); Hemoglobin 11.8 g/dL (12.0-15.0); Mean Corp Hgb Conc 31.3 g/dL (32-36); Mean Corpuscular Hgb 25.4 pg (27.0-32.0); Mean Corpuscular Volume 81.3 fL (81-99); Mean Platelet Vol. 10.1 fl (6.2-12.0); Platelet Count 264 K/mm3 (150-450); RBC Distribution Width CV 14.1 % (11.6-14.6); RBC Distribution Width SD 41.8 fl (35.1-43.9); Red Blood Count 4.64 M/mm3 (4.2-5.4); White Blood Count 4.1 K/mm3 (4.4-11.0)
[2020-08-21 08:47] LABS: Anion Gap 4 (5-15); BUN 19 mg/dL (7-18); BUN/Creat Ratio 29.7 RATIO (10-20); Calcium,Total 8.6 mg/dL (8.5-10.1); Chloride 103 mmol/L (98-107); Creatinine, Serum 0.64 mg/dL (0.55-1.02); EST Glomerular Filtration Rate 99 mL/min (>60); Est Glom Filt Rate - Afr Amer 120 mL/min (>60); Glucose 92 mg/dL (74-106); Potassium 4.7 mmol/L (3.5-5.1); Sodium Level 135 mmol/L (136-145)
== END 2020-08-21 23:59 | disposition home or self-care (01) ==
LOC: OLS.SW400 05:00
PROVIDERS: PCP Internal Medicine; Visit Provider Family Medicine
DX: E11.9 Type 2 diabetes mellitus without complications (principal); I10 Essential (primary) hypertension; E78.5 Hyperlipidemia, unspecified
CPT/HCPCS: 36415; 80048; 85027

== ENCOUNTER → 2020-11-20 04:00 | Outpatient (REF) | payer MEDICAID, SELFPAY ==
[2020-11-20 09:20] LABS: Hematocrit 38.1 % (37-47); Hemoglobin 11.8 g/dL (12.0-15.0); Mean Corpuscular Hgb 26.6 pg (27.0-32.0); Mean Platelet Vol. 11.4 fl (6.2-12.0); Platelet Count 204 K/mm3 (150-450); RBC Distribution Width CV 14.3 % (11.6-14.6); RBC Distribution Width SD 44.8 fl (35.1-43.9); Red Blood Count 4.43 M/mm3 (4.2-5.4); White Blood Count 3.7 K/mm3 (4.4-11.0)
[2020-11-20 09:34] LABS: Anion Gap 5 (5-15); BUN 15 mg/dL (7-18); Calcium,Total 8.6 mg/dL (8.5-10.1); Chloride 107 mmol/L (98-107); Creatinine, Serum 0.52 mg/dL (0.55-1.02); EST Glomerular Filtration Rate 126 mL/min (>60); Est Glom Filt Rate - Afr Amer 152 mL/min (>60); Glucose 69 mg/dL (74-106); Potassium 4.5 mmol/L (3.5-5.1); Sodium Level 141 mmol/L (136-145)
== END ==
LOC: OLS.SW400 04:00
PROVIDERS: PCP Internal Medicine; Visit Provider Family Medicine
DX: I10 Essential (primary) hypertension (principal); E78.5 Hyperlipidemia, unspecified; E11.40 Type 2 diabetes mellitus with diabetic neuropathy, unspecified
CPT/HCPCS: 36415; 80048; 85027

== ENCOUNTER → 2021-02-19 05:00 | Outpatient (REF) | payer MEDICAID, SELFPAY ==
[2021-02-19 08:10] LABS: Hematocrit 38.4 % (37-47); Mean Corp Hgb Conc 31.3 g/dL (32-36); Mean Corpuscular Volume 86.3 fL (81-99); Mean Platelet Vol. 10.8 fl (6.2-12.0); Platelet Count 208 K/mm3 (150-450); RBC Distribution Width CV 14.4 % (11.6-14.6); RBC Distribution Width SD 44.7 fl (35.1-43.9); Red Blood Count 4.45 M/mm3 (4.2-5.4); White Blood Count 4.5 K/mm3 (4.4-11.0)
[2021-02-19 08:23] LABS: Anion Gap 11 (5-15); BUN 22 mg/dL (7-18); BUN/Creat Ratio 32.9 RATIO (10-20); Calcium,Total 8.5 mg/dL (8.5-10.1); Chloride 105 mmol/L (98-107); Creatinine, Serum 0.67 mg/dL (0.55-1.02); EST Glomerular Filtration Rate 94 mL/min (>60); Est Glom Filt Rate - Afr Amer 113 mL/min (>60); Glucose 111 mg/dL (74-106); Potassium 4.4 mmol/L (3.5-5.1); Sodium Level 135 mmol/L (136-145)
== END ==
LOC: OLS.SW400 05:00
PROVIDERS: PCP Internal Medicine; Visit Provider Family Medicine
DX: F03.90 Unspecified dementia, unspecified severity, without behavioral disturbance, psychotic disturbance, mood disturbance, and anxiety (principal); E11.9 Type 2 diabetes mellitus without complications; I10 Essential (primary) hypertension; E78.5 Hyperlipidemia, unspecified
CPT/HCPCS: 36415; 80048; 85027

== ENCOUNTER → 2021-02-23 10:30 | Outpatient (REF) | payer MEDICAID, SELFPAY ==
[2021-02-23 17:00] LABS: Color, Urine Yellow (Yellow); Glucose, Dipstick Normal (Normal); Ketone-Dipstick Negative (Negative); Leukocyte Esterase-Dipstick Negative /ul (Negative); Nitrite-Dipstick Negative (Negative); Occult Blood-Urine Negative /ul (Negative); Protein-Dipstick Negative (Negative); Urine Bilirubin Dipstick Negative (Negative); Urine Clarity Clear (Clear); Urine Urobilinogen Normal (Normal)
== END ==
LOC: OLS.SW400 10:30
PROVIDERS: PCP Internal Medicine; Visit Provider Family Medicine
DX: R41.82 Altered mental status, unspecified (principal)
CPT/HCPCS: 81002; 87086; 87088

== ENCOUNTER → 2021-03-27 | Outpatient (REF) | payer MEDICAID, SELFPAY ==
[2021-03-27 16:46] LABS: Hematocrit 36.8 % (37-47); Hemoglobin 11.8 g/dL (12.0-15.0); Mean Corp Hgb Conc 32.1 g/dL (32-36); Mean Corpuscular Hgb 26.6 pg (27.0-32.0); Mean Corpuscular Volume 83.1 fL (81-99); Mean Platelet Vol. 10.5 fl (6.2-12.0); Platelet Count 227 K/mm3 (150-450); RBC Distribution Width CV 14.4 % (11.6-14.6); RBC Distribution Width SD 43.7 fl (35.1-43.9); Red Blood Count 4.43 M/mm3 (4.2-5.4); White Blood Count 5.2 K/mm3 (4.4-11.0)
[2021-03-27 17:03] LABS: Anion Gap 9 (5-15); BUN 18 mg/dL (7-18); BUN/Creat Ratio 20.3 RATIO (10-20); Calcium,Total 8.7 mg/dL (8.5-10.1); Chloride 107 mmol/L (98-107); Creatinine, Serum 0.89 mg/dL (0.55-1.02); EST Glomerular Filtration Rate 68 mL/min (>60); Est Glom Filt Rate - Afr Amer 82 mL/min (>60); Glucose 90 mg/dL (74-106); Potassium 4.4 mmol/L (3.5-5.1); Sodium Level 142 mmol/L (136-145)
== END | disposition home or self-care (01) ==
LOC: OLS.SW400 16:15
PROVIDERS: PCP Internal Medicine; Visit Provider Family Medicine
DX: I48.91 Unspecified atrial fibrillation (principal); E11.40 Type 2 diabetes mellitus with diabetic neuropathy, unspecified; N39.0 Urinary tract infection, site not specified; E78.5 Hyperlipidemia, unspecified
CPT/HCPCS: 36415; 80048; 85027; 87086; 87088

== ENCOUNTER → 2021-04-22 | Outpatient (REF) | payer MEDICAID, SELFPAY ==
[2021-04-22 07:51] LABS: Hematocrit 37.6 % (37-47); Mean Corp Hgb Conc 31.9 g/dL (32-36); Mean Corpuscular Hgb 27.6 pg (27.0-32.0); Mean Corpuscular Volume 86.4 fL (81-99); Mean Platelet Vol. 11.3 fl (6.2-12.0); Platelet Count 234 K/mm3 (150-450); RBC Distribution Width CV 15.7 % (11.6-14.6); RBC Distribution Width SD 49.7 fl (35.1-43.9); Red Blood Count 4.35 M/mm3 (4.2-5.4); White Blood Count 6.7 K/mm3 (4.4-11.0)
[2021-04-22 08:20] LABS: Anion Gap 5 (5-15); BUN 28 mg/dL (7-18); BUN/Creat Ratio 38.1 RATIO (10-20); Calcium,Total 8.8 mg/dL (8.5-10.1); Chloride 105 mmol/L (98-107); Creatinine, Serum 0.74 mg/dL (0.55-1.02); EST Glomerular Filtration Rate 84 mL/min (>60); Est Glom Filt Rate - Afr Amer 101 mL/min (>60); Glucose 72 mg/dL (74-106); Potassium 4.3 mmol/L (3.5-5.1); Sodium Level 138 mmol/L (136-145)
== END | disposition home or self-care (01) ==
LOC: OLS.SW400 05:00
PROVIDERS: PCP Internal Medicine; Visit Provider Family Medicine
DX: I10 Essential (primary) hypertension (principal); F03.90 Unspecified dementia, unspecified severity, without behavioral disturbance, psychotic disturbance, mood disturbance, and anxiety; E11.9 Type 2 diabetes mellitus without complications; E78.5 Hyperlipidemia, unspecified
CPT/HCPCS: 36415; 80048; 85027

== ENCOUNTER 2021-04-29 15:12 | Emergency (ER) | payer MEDICAID, SELFPAY ==
[2021-04-29 15:14] VITALS: BP 127/66; PULSE 100; RESP 23; TEMP 36.2; O2SAT 92; BMI 36.5
[2021-04-29 15:18] VITALS: BP 127/66; PULSE 100; RESP 23; TEMP 36.2; O2SAT 96
--- NOTE | 2021-04-29 15:27 | EX.ED.DYSGE1 ---
HPI History of Present Illness Chief Complaint: Shortness of Breath Informant: patient and SNF Narrative Narrative: Patient presents via EMS from assisted secondary to possible aspiration. Apparently she was eating today and had a choking episode with significant coughing. They noted her O2 sat was 89% following this. Patient is currently on 2 L nasal cannula and satting in the mid 90s. Patient's only complaint is bilateral hip pain from a previous fall. [facility] Medical History Achalasia Diabetes mellitus, type II Hyperlipidemia Hypertension Home Medications lisinopril 40 mg PO DAILY 12/01/13 [History Last Taken 06/08/20] olanzapine 15 mg PO QHS 12/01/13 [History Last Taken 06/07/20] aspirin 81 mg PO DAILY 05/18/19 [History Last Taken 06/08/20 09:36] calcium carbonate-vitamin D3 1 ea PO BID 05/18/19 [History Last Taken 06/06/20] metformin 500 mg PO BID 05/18/19 [History Last Taken 06/08/20 09:35] oxybutynin chloride 10 mg PO DAILY 05/18/19 [History Last Taken 06/06/20] simvastatin 10 mg PO QHS 05/18/19 [History Last Taken 06/07/20] multivitamin 1 ea PO DAILY 02/05/20 [History Last Taken 06/06/20] albuterol sulfate 2 puff IH 4X/DAY 04/01/20 [History Last Taken 06/06/20] alum-mag hydroxide-simeth 30 ml PO Q4H PRN PRN 04/01/20 [History Last Taken Unknown] bisacodyl 10 mg RC DAILY PRN PRN 04/01/20 [History Last Taken Unknown] budesonide-formoterol 2 puff IH BID 04/01/20 [History Last Taken 06/06/20] guaifenesin 10 ml PO Q4H PRN PRN 04/01/20 [History Last Taken Unknown] Debrox 6 drp EACH EAR DAILY PRN 06/08/20 [History Last Taken Unknown] acetaminophen 650 mg PO Q4H PRN PRN 06/08/20 [History Last Taken 06/05/20] magnesium hydroxide 30 ml PO DAILY PRN PRN 06/08/20 [History Last Taken 06/04/20] menthol-zinc oxide 1 applic TOPICAL BID 06/08/20 [History Last Taken 06/06/20] amlodipine 5 mg PO DAILY tablet 06/12/20 [Rx Last Taken Unknown] amoxicillin-pot clavulanate 1 tab PO BID #14 tab 04/29/21 [Rx Last Taken Unknown] Allergy/AdvReac Type Severity Reaction Status Date / Time No Known Allergies Allergy Verified 04/29/21 15:14 Social History Smoking Status: Smoker, status unknown ROS ROS ED Constitutional Constitutional ED: Denies chills or fever(s) Eyes Eyes: Denies change in vision ENT ENT ED: Denies sore throat Cardiovascular Cardiovascular: Denies chest pain Respiratory/Chest Respiratory/Chest: Reports cough and dyspnea Gastrointestinal Gastrointestinal: Denies abdominal pain, nausea or vomiting Musculoskeletal Musculoskeletal: Reports arthralgias; Denies back pain Integumentary Denies rash Neurologic Neurologic: Denies headache(s) Allergic/Immunologic Allergic/Immunologic ED: Denies urticaria EXAM Physical Exam Narrative Exam Narrative: Patient resting company. Chronic speech difficulty but does answer yes no to questions. Const Vital Signs: 04/29/21 15:14 04/29/21 15:18 04/29/21 16:50 Temperature 97.1 F L 97.1 F L 97.1 F L Temperature Source Temporal Temporal Temporal Pulse Rate 100 100 88 Respiratory Rate 23 H 23 H 21 H Respiratory Effort Normal Non-Labored Respiratory Depth Normal Respiratory Pattern Normal Blood Pressure 127/66 H 127/66 H 116/73 Blood Pressure Mean 86 86 87 Pulse Ox 92 96 96 Oxygen Delivery Method Room Air Nasal Cannula Nasal Cannula Oxygen Flow Rate (L/min) 2 2 Positive well nourished and well developed General Appearance ED: well developed HEENT Reports moist mucous membranes Eyes PERRL and EOMs intact bilaterally Neck supple Chest Wall inspection of chest normal and palpation of chest normal Resp normal respiratory effort Auscultation: diminished lung sounds Cardio regular rate and regular rhythm GI non-tender Palpation: soft Extremity Extremity Narrative: Mild tenderness to the lateral hips bilaterally. Equal leg lengths. No significant pain with logroll. Neuro Sensorium / Orientation: alert Psych mental status grossly normal Skin no rashes or lesions noted MDM MDM MDM Narrative Medical decision making narrative: Lab work, chest x-ray, pelvis with bilateral hip x-rays obtained. Lab Data Attestation: I reviewed the patient's lab results. Labs: Laboratory Results - last 24 hr 04/29/21 04/29/21 16:30 16:30 WBC 5.5 RBC 4.34 Hgb 11.9 L Hct 38.5 MCV 88.7 MCH 27.4 MCHC 30.9 L RDW Std Deviation 50.5 H RDW Coeff of Jesica 15.5 H Plt Count 232 MPV 10.9 Immature Gran % (Auto) 0.400 Neut % (Auto) 73.2 H Lymph % (Auto) 15.8 L [place] % (Auto) 7.0 Eos % (Auto) 3.1 Baso % (Auto) 0.5 Absolute Neuts (auto) 4.0 Absolute Lymphs (auto) 0.86 Nucleated RBC % 0 Sodium 142 Potassium 4.1 Chloride 109 H Carbon Dioxide 29.0 Anion Gap 4 L BUN 18 Creatinine 0.87 Estim Creat Clear Calc 81.25 Est GFR (MDRD) Af Amer 84 Est GFR (MDRD) Non-Af 69 BUN/Creatinine Ratio 20.7 H Glucose 118 H Calcium 8.7 Radiography Diagnostic Testing: Clinical Impression(s) from Imaging Studies Chest X-Ray 04/29/21 16:50 IMPRESSION: Mild perihilar interstitial infiltrate or pulmonary edema Electronically Signed: Fan Cevallos MD at 17:16 EST , Hip/Pelvis X-Ray 04/29/21 16:50 IMPRESSION: Degenerative changes of both hips. No evidence for acute hip or pelvic fracture Electronically Signed: Fan Cevallos MD at 17:18 EST , Treatment and Re-Evaluation Comments:: Lab work is unremarkable. Chest x-ray reveals no focal infiltrate per my review. Radiology feels there may be mild perihilar interstitial infiltrates. Pelvis and hip x-rays reveal no fracture. With patient having a good story for aspiration she will be treated with a course of Augmentin. At this time she has been on room air and O2 sats are still in the 90 to 95% range. Discharge Plan Triage Chief Complaint: Shortness of Breath ED Provider: Edna Latham Dx/Rx/DC Orders Clinical Impression: Aspiration of food Instructions: Dysphagia Aspiration Tx Prescriptions: New amoxicillin-pot clavulanate 875-125 mg tablet 1 tab PO BID Qty: 14 RF: 0 No Action olanzapine 15 MG tablet 15 mg PO QHS RF: 0 lisinopril 40 MG tablet 40 mg PO DAILY RF: 0 metformin 500 MG tablet 500 mg PO BID RF: 0 simvastatin 10 MG tablet 10 mg PO QHS RF: 0 aspirin 81 MG tablet,delayed release (DR/EC) 81 mg PO DAILY RF: 0 oxybutynin chloride 5 MG tablet 10 mg PO DAILY RF: 0 calcium carbonate-vitamin D3 1 EACH tablet 1 ea PO BID RF: 0 multivitamin 1 EACH tablet 1 ea PO DAILY RF: 0 guaifenesin 10 ML liquid 10 ml PO Q4H PRN PRN (Reason: cough,congestion) RF: 0 bisacodyl 10 MG suppository 10 mg RC DAILY PRN PRN (Reason: Constipation) RF: 0 albuterol sulfate 1 PUFF inhaler 2 puff IH 4X/DAY RF: 0 alum-mag hydroxide-simeth 30 ML suspension 30 ml PO Q4H PRN PRN (Reason: gi distress) RF: 0 budesonide-formoterol 10.2 GM HFA aerosol inhaler 2 puff IH BID RF: 0 acetaminophen 325 MG tablet 650 mg PO Q4H PRN PRN (Reason: Pain Score 1-10) RF: 0 magnesium hydroxide 30 ML suspension 30 ml PO DAILY PRN PRN (Reason: Constipation) RF: 0 menthol-zinc oxide 1 APPLIC ointment 1 applic TOPICAL BID RF: 0 Debrox 6 drp EACH EAR DAILY PRN (Reason: wax buildup) RF: 0 amlodipine 5 MG tablet 5 mg PO DAILY RF: 0 Primary Care Provider: Jose Brown Referrals: Jose Brown MD [Primary Care Provider] - 5-7 Days Disposition Disposition: Home, Self Care
[2021-04-29 16:50] VITALS: BP 116/73; PULSE 88; RESP 21; TEMP 36.2; O2SAT 96
--- NOTE | 2021-04-29 16:50 | RAD_ITS ---
STUDY: X-RAY CHEST REASON FOR EXAM: Female, 66 years old. cough TECHNIQUE: AP portable COMPARISON: 06/21/2020 FINDINGS: Diminished inspiratory effort is seen. There is mild bilateral perihilar infiltrate or pulmonary edema.. There is no demonstrated pleural abnormality. Normal size heart. Normal mediastinum and mike. Normal visualized pulmonary arteries. Mildly calcified aortic arch and descending thoracic aorta. Dorsal spine demonstrates mild scoliosis and degenerative change. Normal visualized ribs, clavicles, and shoulders. There is no demonstrated abnormality of the visualized soft tissue structures of the upper abdomen. RAD/Chest 1 View (Portable) IMPRESSION: Mild perihilar interstitial infiltrate or pulmonary edema Electronically Signed: Fan Cevallos MD at 17:16 EST ,
--- NOTE | 2021-04-29 16:50 | RAD_ITS ---
STUDY: X-RAY - PELVIS AND BILATERAL HIPS REASON FOR EXAM: Female, 66 years old. pain TECHNIQUE: AP view of the pelvis.? 2 views of the right hip, and 2 views of the left hip were obtained. COMPARISON: None. FINDINGS: There is a non-specific bowel gas pattern. Normal visualized soft tissue structures. Normal bilateral iliac wings, sacroiliac joints and visualized sacrum. Normal bilateral superior and inferior pubic rami. Normal pubic symphysis. Normal bilateral ischial tuberosities. Normal visualized right femoral head. Mild acetabular spurring Normal right hip joint. Normal visualized left femoral head. Mild acetabular spurring. Normal left hip joint. RAD/Hips B/L min 2 views w/ Pelvis IMPRESSION: Degenerative changes of both hips. No evidence for acute hip or pelvic fracture Electronically Signed: Fan Cevallos MD at 17:18 EST ,
[2021-04-29 16:56] LABS: Absolute Lymphocyte Count 0.86 X10^3/uL (0.83-4.51); Basophil# 0.03 X10^3/uL; Basophil% 0.5 % (0-1); Eosinophil# 0.17 X10^3/uL; Eosinophils% 3.1 % (0-5); Hematocrit 38.5 % (37-47); Hemoglobin 11.9 g/dL (12.0-15.0); Lymphocyte # 0.86 X10^3/ul (0.83-4.51); Lymphocyte % 15.8 % (19-41); Mean Corp Hgb Conc 30.9 g/dL (32-36); Mean Corpuscular Hgb 27.4 pg (27.0-32.0); Mean Corpuscular Volume 88.7 fL (81-99); Mean Platelet Vol. 10.9 fl (6.2-12.0); Monocyte# 0.38 X10^3/uL; NRBC Flagged by Analyzer 0 % (0-5); Neutrophil % 73.2 % (47-70); Platelet Count 232 K/mm3 (150-450); RBC Distribution Width CV 15.5 % (11.6-14.6); RBC Distribution Width SD 50.5 fl (35.1-43.9); Red Blood Count 4.34 M/mm3 (4.2-5.4); White Blood Count 5.5 K/mm3 (4.4-11.0)
[2021-04-29 17:11] LABS: Anion Gap 4 (5-15); BUN 18 mg/dL (7-18); BUN/Creat Ratio 20.7 RATIO (10-20); Calcium,Total 8.7 mg/dL (8.5-10.1); Chloride 109 mmol/L (98-107); Creatinine, Serum 0.87 mg/dL (0.55-1.02); EST Glomerular Filtration Rate 69 mL/min (>60); Est Glom Filt Rate - Afr Amer 84 mL/min (>60); Estimated Creatinine Clearance 81.25 ml/min; Glucose 118 mg/dL (74-106); Potassium 4.1 mmol/L (3.5-5.1); Sodium Level 142 mmol/L (136-145)
[2021-04-29 17:26] VITALS: BP 132/73; PULSE 85; RESP 20; TEMP 36.2; O2SAT 95
[2021-04-29 17:50] VITALS: O2SAT 96
[2021-04-29] MEDS: Amox/Clavulanate 875 MG Tablet PO (17:52)
== END 2021-04-29 19:52 | disposition home or self-care (01) ==
PROVIDERS: Emergency Provider Emergency Medicine; PCP Internal Medicine; Visit Provider Emergency Medicine
DX: T17.928A Food in respiratory tract, part unspecified causing other injury, initial encounter (principal); E11.9 Type 2 diabetes mellitus without complications; X58.XXXA Exposure to other specified factors, initial encounter; E78.5 Hyperlipidemia, unspecified; M16.0 Bilateral primary osteoarthritis of hip; Z79.82 Long term (current) use of aspirin; Z79.84 Long term (current) use of oral hypoglycemic drugs; Z79.899 Other long term (current) drug therapy
CPT/HCPCS: 71045; 73521; 80048; 85025; 99285; A4216

== ENCOUNTER 2021-05-21 09:05 | Inpatient (IN) | payer MEDICAID, SELFPAY ==
[2021-05-21] VITALS (56 sets, daily range): BP systolic 50–156; BP diastolic 23–123; PULSE 75–121; RESP 1–40; TEMP 37.1–39.1; O2SAT 90–977; BMI 29.3; BMI 28.9
--- NOTE | 2021-05-21 09:32 | EKG12_ITS ---
Test Reason : MEDICAL CLEARANCE Blood Pressure : / mmHG Vent. Rate : 107 BPM Atrial Rate : 107 BPM P-R Int : 114 ms QRS Dur : 070 ms QT Int : 334 ms P-R-T Axes : 046 014 036 degrees QTc Int : 445 ms Sinus tachycardia Otherwise normal ECG Confirmed by EILEEN RAO, VALDO ([id number]), offline editor JOSE GEORGE ([id number]) on 05/22/2021 9:46:17 AM Referred By: Confirmed By:VALDO ARELLANO MD
--- NOTE | 2021-05-21 09:32 | RAD_ITS ---
STUDY: X-RAY CHEST REASON FOR EXAM: Female, 66 years old. Patient is unresponsive. TECHNIQUE: Single AP portable view of the chest. COMPARISON: Comparison is made with prior examination dated 04/29/2021. FINDINGS: EKG electrodes are seen. Patchy left lower lobe infiltrate. There is no demonstrated pleural abnormality. Normal size heart. Normal mediastinum and mike. Normal visualized pulmonary arteries. There is atherosclerotic calcification of the aortic arch with tortuosity. There are diffuse degenerative changes of the visualized thoracic spine. Levoscoliosis. Normal visualized ribs, clavicles, and shoulders. There is no demonstrated abnormality of the visualized soft tissue structures of the upper abdomen. RAD/Chest 1 View (Portable) IMPRESSION: Patchy left lower lobe infiltrate. Electronically Signed: Alex Meadows MD at 10:38 EST ,
--- NOTE | 2021-05-21 09:33 | EX.ED.DYSGE1 ---
HPI History of Present Illness Chief Complaint: Unresponsive Detail of Chief Complaint: Decreased responsiveness today Informant: EMS and SNF Onset/Context/Timing Onset: Today Narrative Narrative: Patient presents to the emergency department via [facility] from [facility]. Patient was noted to be less responsive today. Patient normally alert and oriented x1. Patient is a full go. She does have history of dementia. Patient recently was treated for pneumonia and finished antibiotics on May 12. Patient is vaccinated against COVID. Patient unable to give any history here. Most of the history comes from nurse who took report from EMS and [facility]. [facility] Medical History (Updated 05/21/21 @ 11:[address] Alan Landrum, ) Achalasia Acidosis Afib Anxiety Bipolar 1 disorder Delirium Dementia Diabetes mellitus, type II Hyperlipidemia Hypertension Insomnia Muscle weakness Psychosis Respiratory failure with hypoxia Schizophrenia Home Medications lisinopril 10 mg PO DAILY 12/01/13 [History Last Taken 06/08/20] aspirin 81 mg PO DAILY 05/18/19 [History Last Taken 06/08/20 09:36] metformin 500 mg PO BID 05/18/19 [History Last Taken 06/08/20 09:35] oxybutynin chloride 5 mg PO BID 05/18/19 [History Last Taken 06/06/20] albuterol sulfate 2 puff IH 4X/DAY 04/01/20 [History Last Taken 06/06/20] alum-mag hydroxide-simeth 30 ml PO Q4H PRN PRN 04/01/20 [History Last Taken Unknown] bisacodyl 10 mg RC DAILY PRN PRN 04/01/20 [History Last Taken Unknown] guaifenesin 10 ml PO Q4H PRN PRN 04/01/20 [History Last Taken Unknown] acetaminophen 650 mg PO Q4H PRN PRN 06/08/20 [History Last Taken 06/05/20] acetaminophen 650 mg MT Q4H PRN 05/21/21 [History Last Taken Unknown] aripiprazole [Abilify] 10 mg PO BID 05/21/21 [History Last Taken Unknown] aripiprazole lauroxil [Aristada] 882 mg IM QMONTH 05/21/21 [History Last Taken Unknown] benztropine 1 mg PO DAILY 05/21/21 [History Last Taken Unknown] clonazepam 1 mg PO TID 05/21/21 [History Last Taken Unknown] dextrose [Glucose Gel] 10 g PO Q15M PRN 05/21/21 [History Last Taken Unknown] diphenhydramine HCl [Benadryl] 25 mg PO Q6H PRN PRN 05/21/21 [History Last Taken Unknown] glucagon [Glucagon Emergency Kit] 1 mg IM PRN PRN 05/21/21 [History Last Taken Unknown] guaifenesin 400 mg PO Q4H PRN 05/21/21 [History Last Taken Unknown] lamotrigine 25 mg PO DAILY 05/21/21 [History Last Taken Unknown] magnesium hydroxide [Milk of Magnesia] 30 ml PO DAILY PRN 05/21/21 [History Last Taken Unknown] melatonin 5 mg PO QHS 05/21/21 [History Last Taken Unknown] mometasone-formoterol [Dulera] 1 puff INHALATION DAILY 05/21/21 [History Last Taken Unknown] nystatin 1 applic TOPICAL BID 05/21/21 [History Last Taken Unknown] quetiapine 100 mg PO DAILY 05/21/21 [History Last Taken Unknown] quetiapine 200 mg PO QHS 05/21/21 [History Last Taken Unknown] sodium phosphates [Fleet Enema] 118 ml MT DAILY PRN 05/21/21 [History Last Taken Unknown] Allergy/AdvReac Type Severity Reaction Status Date / Time No Known Allergies Allergy Verified 05/21/21 09:22 Social History Smoking Status: Smoker, status unknown ROS ROS ED Review of Systems ROS Unobtainable: due to mental condition and due to mental status EXAM Physical Exam Const Vital Signs: 05/21/21 09:06 05/21/21 09:11 05/21/21 09:16 Temperature 99.4 F H 99.4 F H Temperature Source Temporal Temporal Pulse Rate 121 H 120 H 121 H Respiratory Rate 40 H 40 H 38 H Blood Pressure 87/56 L 87/56 L 88/60 L Blood Pressure Mean 66 66 69 Pulse Ox 90 95 97 Oxygen Delivery Method Room Air Nasal Cannula Nasal Cannula Oxygen Flow Rate (L/min) 4 4 4 05/21/21 09:49 05/21/21 10:48 05/21/21 10:50 Temperature 98.8 F 98.8 F Temperature Source Core Core Pulse Rate 109 H 98 98 Respiratory Rate 26 H 23 H 22 H Blood Pressure 79/48 L 73/46 L 73/46 L Blood Pressure Mean 58 55 55 Pulse Ox 94 93 977 Oxygen Delivery Method Nasal Cannula Nasal Cannula Nasal Cannula Oxygen Flow Rate (L/min) 3 2 2 05/21/21 10:57 05/21/21 11:00 05/21/21 11:13 Temperature 100.3 F H 100.5 F H Temperature Source Core Rectal Pulse Rate 96 94 Respiratory Rate 1 L 24 H Blood Pressure 73/41 L 61/29 L 61/29 L Blood Pressure Mean 51 39 39 Pulse Ox 94 97 Oxygen Delivery Method Nasal Cannula Nasal Cannula Oxygen Flow Rate (L/min) 2 2 Positive well nourished and well developed General Appearance ED: well developed and NAD HEENT Reports TM's clear and moist mucous membranes HEENT Narrative: Patient fights my attempt to open her eyes. Patient does withdraw from any type of pain stimuli. normocephalic and atraumatic; Negative for trauma or tenderness Tympanic Membrane ED: Yes TM's clear Eyes PERRL and EOMs intact bilaterally General Eye ED: Negative for pale conjunctiva or scleral icterus Neck no lymphadenopathy, supple and no JVD General: Negative for tenderness Chest Wall inspection of chest normal and palpation of chest normal Chest: Negative for tenderness Resp clear to auscultation bilaterally Resp Narrative: Patient with tachypnea. Patient with decreased breath sounds in the bases with some faint rales noted. No accessory muscle use or retractions noted. Effort and Inspection: Negative for respiratory distress or pain with movement Auscultation: rales; Negative for rhonchi, wheezes or diminished lung sounds Cardio regular rhythm, S1 normal heart sound, S2 normal heart sound and no murmurs Rate: tachycardic Peripheral Pulses: pulses 2+ throughout GI normal to inspection, nondistended, normoactive bowel sounds, soft to palpation, non-tender, non-distended and no masses Back/Spine no CVA tenderness and no thoracic nor lumbar tenderness Extremity normal to inspection General Extremety ED: Negative for edema General Extremity: Negative for edema Neuro oriented x3, CN's II-XII intact bilaterally, no sensory deficits noted and gait normal Sensorium / Orientation: awake, alert, oriented to person, oriented to place and oriented to time Motor Exam: strength 5/5 throughout and strength abnormal Psych mental status grossly normal Skin no rashes or lesions noted and no wounds MDM MDM MDM Narrative Medical decision making narrative: IV lines were established on arrival. She was given 2 L normal same fluid boluses. Patient started on Vanco and Zosyn. Patient's blood pressure did not respond to fluids and central line was placed in norepinephrine started. Case discussed with hospitalist will evaluate patient for admission for septic shock. Patient has noted left lower lobe infiltrate on chest x-ray and also UTI. Given that there are are no EKG changes I suspect the elevated troponin likely related to patient's acute kidney injury. Lab Data Attestation: I reviewed the patient's lab results. Labs: Laboratory Results - last 24 hr 05/21/21 05/21/21 05/21/21 09:20 09:20 09:20 WBC 21.6 H RBC 5.66 H Hgb 16.1 H Hct 51.4 H MCV 90.8 MCH 28.4 MCHC 31.3 L RDW Std Deviation 59.0 H RDW Coeff of Jesica 18.6 H Plt Count 233 MPV 12.7 H Immature Gran % (Auto) 0.500 Neut % (Auto) 87.4 H Lymph % (Auto) 7.6 L [place] % (Auto) 4.2 Eos % (Auto) 0.0 Baso % (Auto) 0.3 Absolute Neuts (auto) 18.9 H Absolute Lymphs (auto) 1.63 Nucleated RBC % 0 Sodium 161 H* Potassium 5.1 Chloride 132 H* Carbon Dioxide 24.0 Anion Gap 5 BUN 115 H* Creatinine 6.17 H Estim Creat Clear Calc 9.22 Est GFR (MDRD) Af Amer 9 L Est GFR (MDRD) Non-Af 7 L BUN/Creatinine Ratio 18.6 Glucose 147 H Lactic Acid 1.8 Calcium 8.9 Total Bilirubin 0.40 AST 144 H ALT 72 H Alkaline Phosphatase 100 Troponin I High Sens 220 H* Total Protein 7.5 Albumin 3.1 L Globulin 4.4 H Albumin/Globulin Ratio 0.7 L Urine Color Urine Clarity Urine pH Ur Specific [place] Urine Protein Urine Glucose (UA) Urine Ketones Urine Occult Blood Urine Nitrite Urine Bilirubin Urine Urobilinogen Ur Leukocyte Esterase Urine RBC Urine WBC Ur Squamous Epith Cells Urine Bacteria Urine Mucus 05/21/21 11:00 WBC RBC Hgb Hct MCV MCH MCHC RDW Std Deviation RDW Coeff of Jesica Plt Count MPV Immature Gran % (Auto) Neut % (Auto) Lymph % (Auto) [place] % (Auto) Eos % (Auto) Baso % (Auto) Absolute Neuts (auto) Absolute Lymphs (auto) Nucleated RBC % Sodium Potassium Chloride Carbon Dioxide Anion Gap BUN Creatinine Estim Creat Clear Calc Est GFR (MDRD) Af Amer Est GFR (MDRD) Non-Af BUN/Creatinine Ratio Glucose Lactic Acid Calcium Total Bilirubin AST ALT Alkaline Phosphatase Troponin I High Sens Total Protein Albumin Globulin Albumin/Globulin Ratio Urine Color Yellow Urine Clarity Cloudy Urine pH 5.0 Ur Specific [place] 1.025 Urine Protein 100 H Urine Glucose (UA) Normal Urine Ketones 5 H Urine Occult Blood 50 H Urine Nitrite Negative Urine Bilirubin 6 H Urine Urobilinogen Normal Ur Leukocyte Esterase 500 H Urine RBC 0-5 SEEN Urine WBC >100 SEEN Ur Squamous Epith Cells 0-5 SEEN Urine Bacteria 3+ Urine Mucus RARE Radiography Chest X-Ray - ED: 1 View Diagnostic Testing: Clinical Impression(s) from Imaging Studies Chest X-Ray 05/21/21 09:32 IMPRESSION: Patchy left lower lobe infiltrate. Electronically Signed: Alex Maedows MD at 10:38 EST , 1 view chest x-ray obtained interpreted by myself as left lower lobe infiltrate. Radiology in agreement. EKG Initial EKG: Attestation: I personally reviewed and interpreted this EKG as follows: Comments: Sinus tachycardia with a rate of 107 bpm with no acute ST segment changes Procedures Other Procedures Procedure(s): Central line placement-initially area of the right carotid artery was sterilely draped and prepped. Using 1% lidocaine small amount of total of 1 cc used anesthetize the skin locally. I was able to cannulate the internal jugular vein and was able to pass the guidewire after dilating the subcutaneous tissues with dilator. When I attempted to place the central line over the wire I met resistance and then remove the wire and central line catheter. Pressure was applied to the puncture site. I then decided to attempt central line placement in the right chest. Clean was sterilely draped and prepped. Anesthetized skin locally with 1% lidocaine total of 3 cc. Needle was placed underneath the right clavicle angled towards the sternal notch and immediate blood return was obtained. Wire was placed through the needle into the subclavian vein and needle was removed. Patient then had the dilator placed over the wire and subcutaneous tissues were dilated. The central line catheter then was placed over the wire and the wire was removed. The central line catheter was sutured in place. I obtained good blood return from all 3 ports. Ports had been flushed with heparin prior. Clean dressing was applied. Chest x-ray will be obtained for placement of central line. Critical Care Time Critical care time (excluding procedures): 30-74 minutes, Including time spent:, Discussing w/Patient &/or Family/Enterprise Engineer, Discussing w/Consultants, Arranging Admission or Transfer, Performing Direct Patient Care at Bedside and - (45 minutes) Discharge Plan Dx/Rx/DC Orders Clinical Impression: Septic shock, Pneumonia, Acute kidney injury, Acute UTI, Acute hypernatremia, Acute hypotension Disposition Disposition: Acute Care [facility]
[2021-05-21] MEDS: 0.9% Normal Saline 1,000 ML 1000 ML IV (09:41)
[2021-05-21] MEDS: 0.9% Normal Saline 1,000 ML 150 ML IV (09:43)
--- NOTE | 2021-05-21 09:44 | ED.RN ---
pt has hx of dementia. per [facility] pt is normally A&O x 1.
[2021-05-21 09:46] LABS: Absolute Lymphocyte Count 1.63 X10^3/uL (0.83-4.51); Absolute Neutrophil Count 18.9 X10^3/uL (2.0-7.7); Basophil# 0.06 X10^3/uL; Basophil% 0.3 % (0-1); Hematocrit 51.4 % (37-47); Hemoglobin 16.1 g/dL (12.0-15.0); Lymphocyte # 1.63 X10^3/ul (0.83-4.51); Lymphocyte % 7.6 % (19-41); Mean Corp Hgb Conc 31.3 g/dL (32-36); Mean Corpuscular Hgb 28.4 pg (27.0-32.0); Mean Corpuscular Volume 90.8 fL (81-99); Mean Platelet Vol. 12.7 fl (6.2-12.0); Monocyte# 0.91 X10^3/uL; Monocyte% 4.2 % (0-10); NRBC Flagged by Analyzer 0 % (0-5); Neutrophil # 18.87 X10^3/uL (2.7-7.7); Neutrophil % 87.4 % (47-70); Platelet Count 233 K/mm3 (150-450); RBC Distribution Width CV 18.6 % (11.6-14.6); Red Blood Count 5.66 M/mm3 (4.2-5.4); White Blood Count 21.6 K/mm3 (4.4-11.0)
[2021-05-21] MEDS: 0.9% Normal Saline 1,000 ML 999 ML IV (10:00)
[2021-05-21 10:08] LABS: Lactic Acid 1.8 mmol/L (0.4-1.9)
[2021-05-21 10:11] LABS: ALB/GLOB Ratio 0.7 RATIO (0.9-2.4); AST(SGOT) 144 U/L (15-37); Alanine Aminotransfer ALT/SGPT 72 U/L (13-56); Albumin, Serum 3.1 g/dL (3.2-5.0); Alkaline Phosphatase 100 U/L (45-117); Anion Gap 5 (5-15); BUN 115 mg/dL (7-18); BUN/Creat Ratio 18.6 RATIO (10-20); Calcium,Total 8.9 mg/dL (8.5-10.1); Chloride 132 mmol/L (98-107); Creatinine, Serum 6.17 mg/dL (0.55-1.02); EST Glomerular Filtration Rate 7 mL/min (>60); Est Glom Filt Rate - Afr Amer 9 mL/min (>60); Estimated Creatinine Clearance 9.22 ml/min; Globulin 4.4 g/dL (2.2-4.2); Glucose 147 mg/dL (74-106); Potassium 5.1 mmol/L (3.5-5.1); Protein, Total 7.5 g/dL (6.4-8.2); Sodium Level 161 mmol/L (136-145); Troponin-I HS 220 pg/mL (3.0-54.0)
[2021-05-21] MEDS: Vancomycin IV 1,000 MG/200 ML BAG 200 MG IV (10:13)
[2021-05-21 11:21] LABS: Color, Urine Yellow (Yellow); Glucose, Dipstick Normal (Normal); Ketone-Dipstick 5 mg/dl (Negative); Leukocyte Esterase-Dipstick 500 /ul (Negative); Nitrite-Dipstick Negative (Negative); Occult Blood-Urine 50 /ul (Negative); Protein-Dipstick 100 mg/dl (Negative); Specific Gravity, Urine 1.025 (1.002-1.030); Urine Bilirubin Dipstick 6 mg/dL (Negative); Urine Clarity Cloudy (Clear); Urine Urobilinogen Normal (Normal)
[2021-05-21 11:27] LABS: Red Blood Cells-Urine 0-5 SEEN /hpf (0-5); White Blood Cells >100 SEEN /hpf (0-5)
[2021-05-21 11:28] LABS: Bacteria 3+ /hpf (None Seen); Mucous, Urine RARE /hpf (<or=2+); Squamous Epithelial Cells - UA 0-5 SEEN /hpf (5-10)
--- NOTE | 2021-05-21 11:35 | RAD_ITS ---
STUDY: X-RAY CHEST REASON FOR EXAM: Female, 66 years old. Central line placement. TECHNIQUE: Single AP portable view of the chest. COMPARISON: Comparison is made with prior chest radiograph done earlier today. FINDINGS: A right-sided subclavian venous catheter in place. The tip is at the junction of the superior vena cava and right atrium. Persistent mild increased markings at the left lung base. There is no demonstrated pleural abnormality. RAD/CXR for Line Placement IMPRESSION: The tip of the right subclavian venous catheter is at the junction of the superior vena cava and right atrium. Electronically Signed: Alex Meadows MD at 12:41 EST ,
--- NOTE | 2021-05-21 12:19 | HP.PCM.HOS_ITS ---
HPI - General HPI Narrative STEPHAN KING, is a 66 F resident under the standard care facility he was brought in with decreased level of sensorium. Patient could not provide any history given her current condition.. Patientrecently been treated for pneumonia and apparently completed a course of antibiotic on 227. Patient was found to be rhonchorous of admission. 05/12/2021. Patient was found to be rhonchorous and barely responsive on the day on the day of patient admission at the [facility]. She was therefore sent to the ED. Urinalysis obtained came back consistent with UTI. Chest x-ray to the emergency department did demonstrate patchy left lower lobe infiltrate. Patient in addition was found to have significant electrolyte abnormality with BRIAN hyperkalemia and hypernatremia. IV fluid resuscitation and broad-spectrum antibiotic therapy initiated and patient admitted to the intensive care unit for further management [facility] Medical History Achalasia Acidosis Afib Anxiety Bipolar 1 disorder Delirium Dementia Diabetes mellitus, type II Hyperlipidemia Hypertension Insomnia Muscle weakness Psychosis Respiratory failure with hypoxia Schizophrenia Home Medications lisinopril 10 mg PO DAILY 12/01/13 [History Last Taken 06/08/20] aspirin 81 mg PO DAILY 05/18/19 [History Last Taken 06/08/20 09:36] metformin 500 mg PO BID 05/18/19 [History Last Taken 06/08/20 09:35] oxybutynin chloride 5 mg PO BID 05/18/19 [History Last Taken 06/06/20] albuterol sulfate 2 puff IH 4X/DAY 04/01/20 [History Last Taken 06/06/20] alum-mag hydroxide-simeth 30 ml PO Q4H PRN PRN 04/01/20 [History Last Taken Unknown] bisacodyl 10 mg RC DAILY PRN PRN 04/01/20 [History Last Taken Unknown] guaifenesin 10 ml PO Q4H PRN PRN 04/01/20 [History Last Taken Unknown] acetaminophen 650 mg PO Q4H PRN PRN 06/08/20 [History Last Taken 06/05/20] acetaminophen 650 mg SC Q4H PRN 05/21/21 [History Last Taken Unknown] aripiprazole [Abilify] 10 mg PO BID 05/21/21 [History Last Taken Unknown] aripiprazole lauroxil [Aristada] 882 mg IM QMONTH 05/21/21 [History Last Taken Unknown] benztropine 1 mg PO DAILY 05/21/21 [History Last Taken Unknown] clonazepam 1 mg PO TID 05/21/21 [History Last Taken Unknown] dextrose [Glucose Gel] 10 g PO Q15M PRN 05/21/21 [History Last Taken Unknown] diphenhydramine HCl [Benadryl] 25 mg PO Q6H PRN PRN 05/21/21 [History Last Taken Unknown] glucagon [Glucagon Emergency Kit] 1 mg IM PRN PRN 05/21/21 [History Last Taken Unknown] guaifenesin 400 mg PO Q4H PRN 05/21/21 [History Last Taken Unknown] lamotrigine 25 mg PO DAILY 05/21/21 [History Last Taken Unknown] magnesium hydroxide [Milk of Magnesia] 30 ml PO DAILY PRN 05/21/21 [History Last Taken Unknown] melatonin 5 mg PO QHS 05/21/21 [History Last Taken Unknown] mometasone-formoterol [Dulera] 1 puff INHALATION DAILY 05/21/21 [History Last Taken Unknown] nystatin 1 applic TOPICAL BID 05/21/21 [History Last Taken Unknown] quetiapine 100 mg PO DAILY 05/21/21 [History Last Taken Unknown] quetiapine 200 mg PO QHS 05/21/21 [History Last Taken Unknown] sodium phosphates [Fleet Enema] 118 ml SC DAILY PRN 05/21/21 [History Last Taken Unknown] Allergy/AdvReac Type Severity Reaction Status Date / Time No Known Allergies Allergy Verified 05/21/21 09:22 Family History unable to obtain unable to obtain Surgical History unable to obtain unable to obtain Social History Smoking Status: Smoker, status unknown ROS Review of Systems ROS Unobtainable: due to encephalopathy Vital Signs Vital Signs Vital Signs: 05/21/21 09:06 05/21/21 09:11 05/21/21 09:16 Temperature 99.4 F H 99.4 F H Temperature Source Temporal Temporal Pulse Rate 121 H 120 H 121 H Respiratory Rate 40 H 40 H 38 H Blood Pressure 87/56 L 87/56 L 88/60 L Blood Pressure Mean 66 66 69 Blood Pressure Source Blood Pressure Position Blood Pressure Location Pulse Ox 90 95 97 Oxygen Delivery Method Room Air Nasal Cannula Nasal Cannula Oxygen Flow Rate (L/min) 4 4 4 05/21/21 09:49 05/21/21 10:48 05/21/21 10:50 Temperature 98.8 F 98.8 F Temperature Source Core Core Pulse Rate 109 H 98 98 Respiratory Rate 26 H 23 H 22 H Blood Pressure 79/48 L 73/46 L 73/46 L Blood Pressure Mean 58 55 55 Blood Pressure Source Blood Pressure Position Blood Pressure Location Pulse Ox 94 93 977 Oxygen Delivery Method Nasal Cannula Nasal Cannula Nasal Cannula Oxygen Flow Rate (L/min) 3 2 2 05/21/21 10:57 05/21/21 11:00 05/21/21 11:13 Temperature 100.3 F H 100.5 F H Temperature Source Core Rectal Pulse Rate 96 94 Respiratory Rate 1 L 24 H Blood Pressure 73/41 L 61/29 L 61/29 L Blood Pressure Mean 51 39 39 Blood Pressure Source Blood Pressure Position Blood Pressure Location Pulse Ox 94 97 Oxygen Delivery Method Nasal Cannula Nasal Cannula Oxygen Flow Rate (L/min) 2 2 05/21/21 11:56 05/21/21 12:04 05/21/21 12:11 Temperature 100.4 F H 100.3 F H 100.3 F H Temperature Source Rectal Core Core Pulse Rate 93 92 89 Respiratory Rate 23 H 23 H 20 H Blood Pressure 50/28 L 50/23 L 69/39 L Blood Pressure Mean 35 32 49 Blood Pressure Source Monitor Blood Pressure Position Semi-Fowlers Blood Pressure Location Right Arm Pulse Ox 95 98 Oxygen Delivery Method Nasal Cannula Nasal Cannula Oxygen Flow Rate (L/min) 2 2 05/21/21 12:13 05/21/21 12:16 Temperature 100.2 F H 100.2 F H Temperature Source Core Rectal Pulse Rate 84 81 Respiratory Rate 20 H 20 H Blood Pressure 69/39 L 79/41 L Blood Pressure Mean 49 53 Blood Pressure Source Blood Pressure Position Blood Pressure Location Pulse Ox 98 98 Oxygen Delivery Method Nasal Cannula Nasal Cannula Oxygen Flow Rate (L/min) 2 Weight Weight: 66 kg Body Mass Index (BMI) 29.3 Physical Exam Narrative GENERAL: Significantly lethargic but winces to sternal rub HEENT: Atraumatic; EYES; Anicteric, Normal Conjunctiva NECK; supple, normal thyroid, RESPIRATORY: Diminished to auscultation CARDIOVASCULAR: Regular S1 S2, GI: soft, normoactive bowel sounds, : No Renal angle tenderness; EXTREMITIES: No edema, no clubbing, MUSCULOSKELETAL: no muscle wasting NEURO: Significantly lethargic SKIN: No Rash PSYCH; lethargic Results Lab / Micro Data Result Diagrams: 05/21/21 09:20 05/21/21 09:20 Labs: Laboratory Results - last 24 hr 05/21/21 09:20: WBC 21.6 H, RBC 5.66 H, Hgb 16.1 H, Hct 51.4 H, MCV 90.8, MCH 28.4, MCHC 31.3 L, RDW Std Deviation 59.0 H, RDW Coeff of Jesica 18.6 H, Plt Count 233, MPV 12.7 H, Immature Gran % (Auto) 0.500, Neut % (Auto) 87.4 H, Lymph % (Auto) 7.6 L, [place] % (Auto) 4.2, Eos % (Auto) 0.0, Baso % (Auto) 0.3, Absolute Neuts (auto) 18.9 H, Absolute Lymphs (auto) 1.63, Nucleated RBC % 0 05/21/21 09:20: Sodium 161 H*, Potassium 5.1, Chloride 132 H*, Carbon Dioxide 24.0, Anion Gap 5, BUN 115 H*, Creatinine 6.17 H, Estim Creat Clear Calc 9.22, Est GFR (MDRD) Af Amer 9 L, Est GFR (MDRD) Non-Af 7 L, BUN/Creatinine Ratio 18.6, Glucose 147 H, Calcium 8.9, Total Bilirubin 0.40, AST 144 H, ALT 72 H, Alkaline Phosphatase 100, Troponin I High Sens 220 H*, Total Protein 7.5, Albumin 3.1 L, Globulin 4.4 H, Albumin/Globulin Ratio 0.7 L 05/21/21 09:20: Lactic Acid 1.8 05/21/21 11:00: Urine Color Yellow, Urine Clarity Cloudy, Urine pH 5.0, Ur Spec ific Means 1.025, Urine Protein 100 H, Urine Glucose (UA) Normal, Urine Ketones 5 H, Urine Occult Blood 50 H, Urine Nitrite Negative, Urine Bilirubin 6 H, Urine Urobilinogen Normal, Ur Leukocyte Esterase 500 H, Urine RBC 0-5 SEEN, Urine WBC >100 SEEN, Ur Squamous Epith Cells 0-5 SEEN, Urine Bacteria 3+, Urine Mucus RARE Micro: Microbiology 05/21/21 Unknown Mucosa - Nasopharyngeal Influenza Types A,B Direct FA ([place]) - Final 05/21/21 09:50 Nasal Secretion SARS-CoV-2 Antigen (Rapid) - Final Radiology Impression Chest X-Ray 05/21/21 09:32 IMPRESSION: Patchy left lower lobe infiltrate. Electronically Signed: Alex Meadows MD at 10:38 EST , Assessment & Plan Assessment/Plan (1) Chronic insomnia: (2) UTI (urinary tract infection): (3) Delirium: (4) Hypotension: (5) Infectious encephalopathy: (6) Acute prerenal azotemia: (7) Septic shock: (8) Pneumonia: (9) Acute kidney injury: (10) Acute UTI: (11) Acute hypernatremia: (12) Acute hypotension: PLAN: Patient is a 66-year-old resident of an [facility] brought in with altered mental status 1. Acute metabolic encephalopathy ?Multifactorial from sepsis, BRIAN, infectious etiology (pneumonia and UTI). Patient has been admitted to the intensive care unit with treatment of conditions contributing to patient encephalopathy 2. Septic shock ?Patient qSOFA on admission was 3. Has elevated WBC count MAP less than 65 creatinine greater than 2 respiratory rate greater than 20 heart rate greater than 90. Patient did not respond to initial fluid resuscitation in the ER. Continues IV fluid resuscitation continued in the ICU. Cultures were obtained in the ED. 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 Pneumonia ?Patient is at significant risk for MDR's. Patient was therefore started on broad-spectrum antibiotic therapy to cover for both Pseudomonas as well as MRSA pending culture result 4. Complicated acute cystitis ?Patient is on broad-spectrum antibiotic therapy cultures sent 5. Acute kidney injury ?Possibly ATN patient is on aggressive IV fluid resuscitation with monitoring of electrolytes with consultation placed to nephrology Case discussed with Dr. Armenta 6. Mild hyperkalemia ?Secondary to #5 do expect improvement with treatment of patient's BIRAN 7. Hypernatremia ?Secondary to severe dehydration and hypovolemia. Patient is on aggressive IV fluid resuscitation with saline initially with plans to switch to 0.45 saline with serial monitoring with BMP ordered every 4. Nephrology on case 8. Elevated troponin secondary to acute non-STEMI type II ?As a result of patient underlying infection and sepsis 9. Essential hypertension ?Patient antihypertensives on hold 10. Dyslipidemia ?Patient was previously on statin therapy currently not on the med/ 11. Paroxysmal A. fib ?Currently in sinus rhythm 12. Diabetes mellitus type 2 ?Patient is on Metformin this was held please on Accu-Cheks every 6 with insulin coverage 13. Achalasia ?Patient has history of previous esophageal food impaction 14. Dementia ?Per history supportive care 15. DVT prophylaxis ?SC heparin CODE STATUS; per documentation from long term chart full code Total CC time spent evaluating patient review of labs, initiation of management orders, discussion with other providers involved in patient's care as well as subsequent review; 75 minutes. Charges/Coding Procedures Hospitalists Procedures: [id number] Critial Care 1st Hr Multi Select Codes Hospitalists' Procedures Procedures: 19403 Critial Care Addl 30 Min
--- NOTE | 2021-05-21 12:27 | EX.PCM.CONCC ---
Assessment & Plan Assessment/Plan (1) Septic shock: PLAN: RECOMMENDATIONS: 1. Continue broad-spectrum antimicrobials. 2. Continue Levophed to maintain a mean arterial pressure at or above 65 mmHg. 3. Transition from 0.9-0.45 normal saline. Await additional nephrology recommendations. 4. Obtain arterial blood gas and recheck comprehensive metabolic profile. 5. Continue appropriate DVT prophylaxis. 6. The patient should be made strict n.p.o. for now. IMPRESSIONS: 1. Septic shock The patient presented with septic shock with multiple possible sources of infection including underlying pneumonia and urinary tract infection. She does have evidence of sepsis induced organ dysfunction as manifested by encephalopathy, acute kidney injury and fluid refractory hypotension, necessitating vasopressor support. She does have a history of prior hospital admissions for sepsis along with a history of achalasia putting her at high risk for aspiration. The patient did receive appropriate IV fluid hydration and ultimately required Levophed to maintain hemodynamic stability. Plan to continue broad-spectrum antimicrobials, pending further infectious work-up. Goal to maintain a mean arterial pressure at or above 65 mmHg. 2. Acute kidney injury/hypernatremia Most likely prerenal in etiology and related to free water loss in the setting of septic shock. Continue current supportive measures. Nephrology has been consulted to evaluate the patient. Continue to monitor urine output. 3. Metabolic encephalopathy Most likely related to underlying infection and profound metabolic derangements. Will obtain arterial blood gas to ensure adequacy of ventilation. Continue supportive measures as noted above. 4. Troponin elevation Likely secondary to demand ischemia in the setting #1. Continue to trend troponins. 5. History of dementia/paroxysmal atrial fibrillation/hypertension/hyperlipidemia/achalasia/diabetes mellitus Complicates care, management, recovery and prognosis. Continue to hold home antihypertensives. Initiate sliding scale insulin coverage. The patient will require formal evaluation by speech therapy prior to consideration for advancement of diet. TIME: 39 minutes of critical care time, independent of procedures, was spent addressing the patient's septic shock, acute kidney injury, hypernatremia, metabolic encephalopathy, troponin elevation, review of all data and collaboration with the care team. HPI Consult Data Date of Consult: 05/21/21 HPI Narrative Reason for Consultation: Sepsis HPI Narrative: The patient is a 66-year-old female, with a history as outlined below, who presented to the emergency department on May 21 from a long term facility with altered mentation. The patient was recently evaluated in the emergency department on April 29 over concerns for an acute aspiration event. The patient was treated with a course of Augmentin at that time. She was not noted to be hypoxemic on room air. History pertinent to the patient's current hospitalization was obtained primarily via chart review, as the patient is too encephalopathic to provide any additional details. On presentation to the emergency department, the patient was noted have a low-grade fever and was notably tachycardic and tachypneic. In addition, her blood pressure was quite labile at 87/56 mmHg. Laboratory evaluation revealed an elevated white blood cell count to 21,000. Chemistry profile was notable for a sodium of 161, chloride of 132, BUN of 115 and creatinine of 6.17. Lactate was normal at 1.8. AST and ALT were increased at 144 and 72, respectively. Troponin was elevated at 220. Urine analysis was positive for leukocyte esterase and 3+ urine bacteria. Chest x-ray was of suboptimal inspiratory quality with evidence of a possible left lower lobe infiltrate. The patient received supplemental IV fluid hydration and was started on antimicrobials. Unfortunately, she remained hypotensive despite IV fluid resuscitation. Therefore, a central venous catheter was placed and the patient was initiated on Levophed to maintain hemodynamic stability. [facility] Medical History Achalasia Acidosis Afib Anxiety Bipolar 1 disorder Delirium Dementia Diabetes mellitus, type II Hyperlipidemia Hypertension Insomnia Muscle weakness Psychosis Respiratory failure with hypoxia Schizophrenia Home Medications lisinopril 10 mg PO DAILY 12/01/13 [History Last Taken 06/08/20] aspirin 81 mg PO DAILY 05/18/19 [History Last Taken 06/08/20 09:36] metformin 500 mg PO BID 05/18/19 [History Last Taken 06/08/20 09:35] oxybutynin chloride 5 mg PO BID 05/18/19 [History Last Taken 06/06/20] albuterol sulfate 2 puff IH 4X/DAY 04/01/20 [History Last Taken 06/06/20] alum-mag hydroxide-simeth 30 ml PO Q4H PRN PRN 04/01/20 [History Last Taken Unknown] bisacodyl 10 mg RC DAILY PRN PRN 04/01/20 [History Last Taken Unknown] guaifenesin 10 ml PO Q4H PRN PRN 04/01/20 [History Last Taken Unknown] acetaminophen 650 mg PO Q4H PRN PRN 06/08/20 [History Last Taken 06/05/20] acetaminophen 650 mg SC Q4H PRN 05/21/21 [History Last Taken Unknown] aripiprazole [Abilify] 10 mg PO BID 05/21/21 [History Last Taken Unknown] aripiprazole lauroxil [Aristada] 882 mg IM QMONTH 05/21/21 [History Last Taken Unknown] benztropine 1 mg PO DAILY 05/21/21 [History Last Taken Unknown] clonazepam 1 mg PO TID 05/21/21 [History Last Taken Unknown] dextrose [Glucose Gel] 10 g PO Q15M PRN 05/21/21 [History Last Taken Unknown] diphenhydramine HCl [Benadryl] 25 mg PO Q6H PRN PRN 05/21/21 [History Last Taken Unknown] glucagon [Glucagon Emergency Kit] 1 mg IM PRN PRN 05/21/21 [History Last Taken Unknown] guaifenesin 400 mg PO Q4H PRN 05/21/21 [History Last Taken Unknown] lamotrigine 25 mg PO DAILY 05/21/21 [History Last Taken Unknown] magnesium hydroxide [Milk of Magnesia] 30 ml PO DAILY PRN 05/21/21 [History Last Taken Unknown] melatonin 5 mg PO QHS 05/21/21 [History Last Taken Unknown] mometasone-formoterol [Dulera] 1 puff INHALATION DAILY 05/21/21 [History Last Taken Unknown] nystatin 1 applic TOPICAL BID 05/21/21 [History Last Taken Unknown] quetiapine 100 mg PO DAILY 05/21/21 [History Last Taken Unknown] quetiapine 200 mg PO QHS 05/21/21 [History Last Taken Unknown] sodium phosphates [Fleet Enema] 118 ml SC DAILY PRN 05/21/21 [History Last Taken Unknown] Allergy/AdvReac Type Severity Reaction Status Date / Time No Known Allergies Allergy Verified 05/21/21 09:22 Family History unable to obtain Surgical History unable to obtain Social History Smoking Status: Smoker, status unknown ROS Review of Systems ROS Unobtainable: due to encephalopathy and due to mental status Physical Exam Const General Appearance: lethargic, ill appearing, frail and appears older than stated age Exam Limitations: altered mental status HEENT normocephalic and head/scalp atraumatic Eyes PERRL Neck supple General: trachea midline and CVC in place Chest inspection of chest normal Resp Resp Narrative: Limited patient dependent inspiratory effort. Clear across anterior lung prado. Effort and Inspection: tachypneic Cardio regular rate and regular rhythm GI normal to inspection, nondistended, normoactive bowel sounds Extremity no clubbing, cyanosis or edema Skin no rashes or lesions noted Neuro Neuro Narrative: The patient is only responsive to painful stimuli. Lab / Micro Data Result Diagrams: 05/21/21 09:20 05/21/21 09:20 Labs: Laboratory Results - last 24 hr 05/21/21 09:20: WBC 21.6 H, RBC 5.66 H, Hgb 16.1 H, Hct 51.4 H, MCV 90.8, MCH 28.4, MCHC 31.3 L, RDW Std Deviation 59.0 H, RDW Coeff of Jesica 18.6 H, Plt Count 233, MPV 12.7 H, Immature Gran % (Auto) 0.500, Neut % (Auto) 87.4 H, Lymph % (Auto) 7.6 L, [place] % (Auto) 4.2, Eos % (Auto) 0.0, Baso % (Auto) 0.3, Absolute Neuts (auto) 18.9 H, Absolute Lymphs (auto) 1.63, Nucleated RBC % 0 05/21/21 09:20: Sodium 161 H*, Potassium 5.1, Chloride 132 H*, Carbon Dioxide 24.0, Anion Gap 5, BUN 115 H*, Creatinine 6.17 H, Estim Creat Clear Calc 9.22, Est GFR (MDRD) Af Amer 9 L, Est GFR (MDRD) Non-Af 7 L, BUN/Creatinine Ratio 18.6, Glucose 147 H, Calcium 8.9, Total Bilirubin 0.40, AST 144 H, ALT 72 H, Alkaline Phosphatase 100, Troponin I High Sens 220 H*, Total Protein 7.5, Albumin 3.1 L, Globulin 4.4 H, Albumin/Globulin Ratio 0.7 L 05/21/21 09:20: Lactic Acid 1.8 05/21/21 11:00: Urine Color Yellow, Urine Clarity Cloudy, Urine pH 5.0, Ur Specific Denio 1.025, Urine Protein 100 H, Urine Glucose (UA) Normal, Urine Ketones 5 H, Urine Occult Blood 50 H, Urine Nitrite Negative, Urine Bilirubin 6 H, Urine Urobilinogen Normal, Ur Leukocyte Esterase 500 H, Urine RBC 0-5 SEEN, Urine WBC >100 SEEN, Ur Squamous Epith Cells 0-5 SEEN, Urine Bacteria 3+, Urine Mucus RARE Micro: Microbiology 05/21/21 Unknown Mucosa - Nasopharyngeal Influenza Types A,B Direct FA ([place]) - Final 05/21/21 09:50 Nasal Secretion SARS-CoV-2 Antigen (Rapid) - Final Radiology Impression Chest X-Ray 05/21/21 09:32 IMPRESSION: Patchy left lower lobe infiltrate. Electronically Signed: Alex Meadows MD at 10:38 EST , Charges/Coding Procedures Hospitalists Procedures: [id number] Critial Care 1st Hr
--- NOTE | 2021-05-21 12:41 | ED.RN ---
attempted to call report to [facility], did not leave message on vm.
--- NOTE | 2021-05-21 13:04 | PHA.PHARE_ITS ---
Consult Pharmacy has been consulted to manage selected antiobiotic: Vancomycin Type of Consult: New start Suspected Infection: Sepsis, Pneumonia Prior Doses of Antibiotics Received/Current Regimen: received 1000mg IV x1 in E.R. starting at 10:13 today Labs: Sodium 161 mmol/L (136-145) H* 05/21/21 09:20 Potassium 5.1 mmol/L (3.5-5.1) 05/21/21 09:20 Chloride 132 mmol/L (98-107) H* 05/21/21 09:20 Carbon Dioxide 24.0 mmol/L (21.0-32.0) 05/21/21 09:20 Anion Gap 5 (5-15) 05/21/21 09:20 BUN 115 mg/dL (7-18) H* 05/21/21 09:20 Creatinine 6.17 mg/dL (0.55-1.02) H 05/21/21 09:20 Est GFR (MDRD) Af Amer 9 mL/min (>60) L 05/21/21 09:20 Est GFR (MDRD) Non-Af 7 mL/min (>60) L 05/21/21 09:20 BUN/Creatinine Ratio 18.6 RATIO (10-20) 05/21/21 09:20 Glucose 147 mg/dL (74-106) H 05/21/21 09:20 Microbiology: Microbiology 05/21/21 Unknown Mucosa - Nasopharyngeal Influenza Types A,B Direct FA ([place]) - Final 05/21/21 09:50 Nasal Secretion SARS-CoV-2 Antigen (Rapid) - Final Weight used for dosin kg Estimated Creatinine Clearance: 9.2ml/min Goal Trough: 15-20 mcg/mL Pharmacy Plan for Drug Dosing: The patient's CrCl < 20 so will dose according to [facility] vanc protocol for patients with CrCl<20 and not on hemodialysis. Dose was already given in E.R. today so will order a random vanc level to be drawn at 06:00 tomorrow morning. Pharmacy will evaluate that level to determine if a dose will be given tomorrow. No more doses needed today though. Pharmacy Service will continue to monitor and adjust dosing as required. Follow-Up Labs: Trough Vancomycin - random Labs to be done on [date and time ordered]: 05/22/21 0600
--- NOTE | 2021-05-21 13:06 | PCM.CONS.R ---
Assessment & Plan Assessment/Plan (1) Acute hypernatremia: PLAN: likely due to [facility]. Change IV fluids to half normal saline for now. Okay to use normal saline for boluses as needed. (2) Acute kidney injury: PLAN: Baseline creatinine was normal as of last year. She is a resident of penitentiary as per history. No current history available. Looks clinically dry. Has severe septic shock, on pressors. Required multiple boluses and blood pressure remains low. Abdomen is soft on exam. Taylor catheter without much urine output. Presumably septic shock due to pneumonia. On broad-spectrum antibiotic coverage. Acute renal failure is likely ATN. Potassium and bicarbonate are okay. No acute indications for dialysis today. We will follow. HPI Consult Data Date of Consult: 05/21/21 HPI Narrative HPI Narrative: STEPHAN KING, is a 66 F who presents The hospital with altered mental status. Nephrology consulted for acute renal failure. Patient is currently completely drowsy, unresponsive. Most of the history is from the charts. Previous baseline creatinine as per records was normal. Currently in severe septic shock, leukocytosis, acute renal failure, hypernatremia. [facility] Medical History Achalasia Acidosis Afib Anxiety Bipolar 1 disorder Delirium Dementia Diabetes mellitus, type II Hyperlipidemia Hypertension Insomnia Muscle weakness Psychosis Respiratory failure with hypoxia Schizophrenia Home Medications lisinopril 10 mg PO DAILY 12/01/13 [History Last Taken 06/08/20] aspirin 81 mg PO DAILY 05/18/19 [History Last Taken 06/08/20 09:36] metformin 500 mg PO BID 05/18/19 [History Last Taken 06/08/20 09:35] oxybutynin chloride 5 mg PO BID 05/18/19 [History Last Taken 06/06/20] albuterol sulfate 2 puff IH 4X/DAY 04/01/20 [History Last Taken 06/06/20] alum-mag hydroxide-simeth 30 ml PO Q4H PRN PRN 04/01/20 [History Last Taken Unknown] bisacodyl 10 mg RC DAILY PRN PRN 04/01/20 [History Last Taken Unknown] guaifenesin 10 ml PO Q4H PRN PRN 04/01/20 [History Last Taken Unknown] acetaminophen 650 mg PO Q4H PRN PRN 06/08/20 [History Last Taken 06/05/20] acetaminophen 650 mg WI Q4H PRN 05/21/21 [History Last Taken Unknown] aripiprazole [Abilify] 10 mg PO BID 05/21/21 [History Last Taken Unknown] aripiprazole lauroxil [Aristada] 882 mg IM QMONTH 05/21/21 [History Last Taken Unknown] benztropine 1 mg PO DAILY 05/21/21 [History Last Taken Unknown] clonazepam 1 mg PO TID 05/21/21 [History Last Taken Unknown] dextrose [Glucose Gel] 10 g PO Q15M PRN 05/21/21 [History Last Taken Unknown] diphenhydramine HCl [Benadryl] 25 mg PO Q6H PRN PRN 05/21/21 [History Last Taken Unknown] glucagon [Glucagon Emergency Kit] 1 mg IM PRN PRN 05/21/21 [History Last Taken Unknown] guaifenesin 400 mg PO Q4H PRN 05/21/21 [History Last Taken Unknown] lamotrigine 25 mg PO DAILY 05/21/21 [History Last Taken Unknown] magnesium hydroxide [Milk of Magnesia] 30 ml PO DAILY PRN 05/21/21 [History Last Taken Unknown] melatonin 5 mg PO QHS 05/21/21 [History Last Taken Unknown] mometasone-formoterol [Dulera] 1 puff INHALATION DAILY 05/21/21 [History Last Taken Unknown] nystatin 1 applic TOPICAL BID 05/21/21 [History Last Taken Unknown] quetiapine 100 mg PO DAILY 05/21/21 [History Last Taken Unknown] quetiapine 200 mg PO QHS 05/21/21 [History Last Taken Unknown] sodium phosphates [Fleet Enema] 118 ml WI DAILY PRN 05/21/21 [History Last Taken Unknown] Allergy/AdvReac Type Severity Reaction Status Date / Time No Known Allergies Allergy Verified 05/21/21 09:22 Family History unable to obtain Surgical History unable to obtain Social History Smoking Status: Smoker, status unknown ROS ROS Narrative unable to be obtained Physical Exam Narrative obtunded no pallor no JVD s1s2 bilateral air entry soft no edema no cyanosis taylor Lab / Micro Data Result Diagrams: 05/21/21 09:20 05/21/21 09:20 Labs: Laboratory Results - last 24 hr 05/21/21 09:20: WBC 21.6 H, RBC 5.66 H, Hgb 16.1 H, Hct 51.4 H, MCV 90.8, MCH 28.4, MCHC 31.3 L, RDW Std Deviation 59.0 H, RDW Coeff of Jesica 18.6 H, Plt Count 233, MPV 12.7 H, Immature Gran % (Auto) 0.500, Neut % (Auto) 87.4 H, Lymph % (Auto) 7.6 L, [place] % (Auto) 4.2, Eos % (Auto) 0.0, Baso % (Auto) 0.3, Absolute Neuts (auto) 18.9 H, Absolute Lymphs (auto) 1.63, Nucleated RBC % 0 05/21/21 09:20: Sodium 161 H*, Potassium 5.1, Chloride 132 H*, Carbon Dioxide 24.0, Anion Gap 5, BUN 115 H*, Creatinine 6.17 H, Estim Creat Clear Calc 9.22, Est GFR (MDRD) Af Amer 9 L, Est GFR (MDRD) Non-Af 7 L, BUN/Creatinine Ratio 18.6, Glucose 147 H, Calcium 8.9, Total Bilirubin 0.40, AST 144 H, ALT 72 H, Alkaline Phosphatase 100, Troponin I High Sens 220 H*, Total Protein 7.5, Albumin 3.1 L, Globulin 4.4 H, Albumin/Globulin Ratio 0.7 L 05/21/21 09:20: Lactic Acid 1.8 05/21/21 11:00: Urine Color Yellow, Urine Clarity Cloudy, Urine pH 5.0, Ur Specific [place] 1.025, Urine Protein 100 H, Urine Glucose (UA) Normal, Urine Ketones 5 H, Urine Occult Blood 50 H, Urine Nitrite Negative, Urine Bilirubin 6 H, Urine Urobilinogen Normal, Ur Leukocyte Esterase 500 H, Urine RBC 0-5 SEEN, Urine WBC >100 SEEN, Ur Squamous Epith Cells 0-5 SEEN, Urine Bacteria 3+, Urine Mucus RARE Micro: Microbiology 05/21/21 Unknown Mucosa - Nasopharyngeal Influenza Types A,B Direct FA ([place]) - Final 05/21/21 09:50 Nasal Secretion SARS-CoV-2 Antigen (Rapid) - Final Radiology Impression Chest X-Ray 05/21/21 09:32 IMPRESSION: Patchy left lower lobe infiltrate. Electronically Signed: Alex Meadows MD at 10:38 EST , Chest X-Ray 05/21/21 11:35 IMPRESSION: The tip of the right subclavian venous catheter is at the junction of the superior vena cava and right atrium. Electronically Signed: Alex Meadows MD at 12:41 EST ,
--- NOTE | 2021-05-21 13:10 | SEPSIS_ITS ---
Sepsis Note Physical Exam/Vitals Objective: Chest X-Ray 05/21/21 09:32 IMPRESSION: Patchy left lower lobe infiltrate. Electronically Signed: Alex Meadows MD at 10:38 EST , Chest X-Ray 05/21/21 11:35 IMPRESSION: The tip of the right subclavian venous catheter is at the junction of the superior vena cava and right atrium. Electronically Signed: Alex Meadows MD at 12:41 EST , Temp Pulse Resp BP Pulse Ox 100.1 F H 77 34 H 92/52 L 99 05/21/21 12:39 05/21/21 12:39 05/21/21 12:39 05/21/21 12:39 05/21/21 12:39 05/21/21 05/21/21 05/21/21 11:00 09:20 09:20 WBC RBC Hgb Hct MCV MCH MCHC RDW Std Deviation RDW Coeff of Jesica Plt Count MPV Immature Gran % (Auto) Neut % (Auto) Lymph % (Auto) [place] % (Auto) Eos % (Auto) Baso % (Auto) Absolute Neuts (auto) Absolute Lymphs (auto) Nucleated RBC % Sodium 161 H* Potassium 5.1 Chloride 132 H* Carbon Dioxide 24.0 Anion Gap 5 BUN 115 H* Creatinine 6.17 H Estim Creat Clear Calc 9.22 Est GFR (MDRD) Af Amer 9 L Est GFR (MDRD) Non-Af 7 L BUN/Creatinine Ratio 18.6 Glucose 147 H Lactic Acid 1.8 Calcium 8.9 Total Bilirubin 0.40 AST 144 H ALT 72 H Alkaline Phosphatase 100 Troponin I High Sens 220 H* Total Protein 7.5 Albumin 3.1 L Globulin 4.4 H Albumin/Globulin Ratio 0.7 L Urine Color Yellow Urine Clarity Cloudy Urine pH 5.0 Ur Specific [place] 1.025 Urine Protein 100 H Urine Glucose (UA) Normal Urine Ketones 5 H Urine Occult Blood 50 H Urine Nitrite Negative Urine Bilirubin 6 H Urine Urobilinogen Normal Ur Leukocyte Esterase 500 H Urine RBC 0-5 SEEN Urine WBC >100 SEEN Ur Squamous Epith Cells 0-5 SEEN Urine Bacteria 3+ Urine Mucus RARE 05/21/21 09:20 WBC 21.6 H RBC 5.66 H Hgb 16.1 H Hct 51.4 H MCV 90.8 MCH 28.4 MCHC 31.3 L RDW Std Deviation 59.0 H RDW Coeff of Jesica 18.6 H Plt Count 233 MPV 12.7 H Immature Gran % (Auto) 0.500 Neut % (Auto) 87.4 H Lymph % (Auto) 7.6 L [place] % (Auto) 4.2 Eos % (Auto) 0.0 Baso % (Auto) 0.3 Absolute Neuts (auto) 18.9 H Absolute Lymphs (auto) 1.63 Nucleated RBC % 0 Sodium Potassium Chloride Carbon Dioxide Anion Gap BUN Creatinine Estim Creat Clear Calc Est GFR (MDRD) Af Amer Est GFR (MDRD) Non-Af BUN/Creatinine Ratio Glucose Lactic Acid Calcium Total Bilirubin AST ALT Alkaline Phosphatase Troponin I High Sens Total Protein Albumin Globulin Albumin/Globulin Ratio Urine Color Urine Clarity Urine pH Ur Specific [place] Urine Protein Urine Glucose (UA) Urine Ketones Urine Occult Blood Urine Nitrite Urine Bilirubin Urine Urobilinogen Ur Leukocyte Esterase Urine RBC Urine WBC Ur Squamous Epith Cells Urine Bacteria Urine Mucus Sepsis re-evaluation was performed. Due to fluid refractory hypotension, the patient was initiated on appropriate vasopressor support with a goal to maintain a mean arterial pressure at or above 65 mmHg. Attestation Sepsis Attestation: Sepsis re-evaluation was performed
[2021-05-21] MEDS: Albuterol 2.5 MG/3 ML VIAL.NEB. INHALATION ×2 (13:28→23:25)
[2021-05-21 13:41] LABS: Allen Test Positive; Base Excess -7 mmol/L (-2 to +2); Bicarbonate 19.7 mmol/L (22-26); Blood Gas Specimen Type ART; O2 Delivery Device Room Air; PO2 56 mmHG (75-100); SITE R Radial; SO2 86 % (95-99); Total Carbon Dioxide 21 mmol/L
[2021-05-21] MEDS: levoFLOXacin IV 750 MG/150 ML BAG 100 MG IV (13:49)
[2021-05-21] MEDS: 0.45% Normal Saline 1,000 ML 150 ML IV ×2 (13:50→19:54)
[2021-05-21] MEDS: Nystatin Powder 15gm Bottle 1 APPLIC TOPICAL ×2 (13:50→21:58)
[2021-05-21 13:54] LABS: ALB/GLOB Ratio 0.7 RATIO (0.9-2.4); AST(SGOT) 135 U/L (15-37); Alanine Aminotransfer ALT/SGPT 70 U/L (13-56); Albumin, Serum 2.4 g/dL (3.2-5.0); Alkaline Phosphatase 81 U/L (45-117); Anion Gap 6 (5-15); BUN 108 mg/dL (7-18); BUN/Creat Ratio 20.2 RATIO (10-20); Calcium,Total 7.3 mg/dL (8.5-10.1); Chloride 134 mmol/L (98-107); Creatinine, Serum 5.34 mg/dL (0.55-1.02); EST Glomerular Filtration Rate 9 mL/min (>60); Est Glom Filt Rate - Afr Amer 10 mL/min (>60); Estimated Creatinine Clearance 10.51 ml/min; Globulin 3.6 g/dL (2.2-4.2); Glucose 250 mg/dL (74-106); Potassium 4.6 mmol/L (3.5-5.1); Sodium Level 160 mmol/L (136-145); Troponin-I HS 467 pg/mL (3.0-54.0)
[2021-05-21] MEDS: Heparin Injection (Vial) 5,000 UNIT/ML VIAL 5000 UNIT SC ×2 (13:58→21:49)
--- NOTE | 2021-05-21 15:20 | NURSING ---
patient thrashing in bed, ripping off telemetry and pulling on taylor and IVs, kicking her legs and hitting the siderails, unable to get BPs, educated on ICU and POC, pt unable to comprehend, able to tell me name, not able to state where she is or year, not following direction, MD made aware, haldol order obtained.
[2021-05-21] MEDS: Haloperidol Lactate 5 MG/ML Vial 2 MG IM (16:12)
[2021-05-21 16:36] LABS: Bedside Glucose 226 mg/dL (74-106)
[2021-05-21] MEDS: Insulin Lispro 100 UNIT/ML INSULN.PEN SC (16:40)
--- NOTE | 2021-05-21 17:37 | NURSING ---
patient remains restless, pulling at wires, taylor, unable to obtain accurate BPs, thrashing in bed, notified Dr. Enciso, reviewed home psych meds, order for aston.
[2021-05-21 17:56] LABS: M R Staph aureus DNA By PCR Negative (Negative); Probe Check PASS; Specimen Processing Control PASS
[2021-05-21] MEDS: Acetaminophen 650 MG Suppository RC (17:57)
[2021-05-21] MEDS: Ziprasidone IM 20 MG/ML VIAL 10 MG IM (17:57)
[2021-05-21 19:06] LABS: Anion Gap 4 (5-15); BUN 102 mg/dL (7-18); BUN/Creat Ratio 22.2 RATIO (10-20); Calcium,Total 7.4 mg/dL (8.5-10.1); Chloride 138 mmol/L (98-107); Creatinine, Serum 4.59 mg/dL (0.55-1.02); EST Glomerular Filtration Rate 10 mL/min (>60); Est Glom Filt Rate - Afr Amer 12 mL/min (>60); Estimated Creatinine Clearance 12.22 ml/min; Glucose 143 mg/dL (74-106); Potassium 4.2 mmol/L (3.5-5.1); Sodium Level 163 mmol/L (136-145); Troponin-I HS 589 pg/mL (3.0-54.0)
--- NOTE | 2021-05-21 19:40 | NURSING ---
1909: Telephone call to Dr Enciso regarding critical lab values, states to defer to nephrology. Order obtained for PRN medication for agitation, see 1929: Telephone call to Dr Barrios regarding critical lab values, orders obtained to continue 0.45% NS @ 150/hr, add D5W @ 100/hr. OK for BMP Q8H, no need to call overnight with updated lab values.
[2021-05-21 22:05] LABS: Bedside Glucose 140 mg/dL (74-106)
[2021-05-21] MEDS: Budesonide Respules 0.5 MG/2 ML AMPUL.NEB. INHALATION (23:25)
[2021-05-22] VITALS (86 sets, daily range): BP systolic 69–153; BP diastolic 45–98; PULSE 64–185; RESP 17–32; TEMP 37.1–38.1; O2SAT 94–100
[2021-05-22] MEDS: 0.45% Normal Saline 1,000 ML 150 ML IV (02:27)
[2021-05-22 04:41] LABS: Absolute Lymphocyte Count 1.58 X10^3/uL (0.83-4.51); Absolute Neutrophil Count 11.3 X10^3/uL (2.0-7.7); Basophil# 0.04 X10^3/uL; Basophil% 0.3 % (0-1); Eosinophils% 0.7 % (0-5); Hematocrit 37.1 % (37-47); Hemoglobin 11.3 g/dL (12.0-15.0); Lymphocyte # 1.58 X10^3/ul (0.83-4.51); Lymphocyte % 11.5 % (19-41); Mean Corp Hgb Conc 30.5 g/dL (32-36); Mean Corpuscular Hgb 28.2 pg (27.0-32.0); Mean Corpuscular Volume 92.5 fL (81-99); Mean Platelet Vol. 12.5 fl (6.2-12.0); Monocyte# 0.62 X10^3/uL; Monocyte% 4.5 % (0-10); NRBC Flagged by Analyzer 0 % (0-5); Neutrophil # 11.34 X10^3/uL (2.7-7.7); Neutrophil % 82.5 % (47-70); Platelet Count 159 K/mm3 (150-450); RBC Distribution Width CV 17.7 % (11.6-14.6); RBC Distribution Width SD 60.5 fl (35.1-43.9); Red Blood Count 4.01 M/mm3 (4.2-5.4); White Blood Count 13.8 K/mm3 (4.4-11.0)
[2021-05-22 05:06] LABS: Vancomycin, Random Level 9.6 ug/mL (0.0-15.0)
[2021-05-22 05:22] LABS: AST(SGOT) 93 U/L (15-37); Alanine Aminotransfer ALT/SGPT 68 U/L (13-56); Albumin, Serum 2.2 g/dL (3.2-5.0); Alkaline Phosphatase 73 U/L (45-117); Anion Gap 3 (5-15); BUN 77 mg/dL (7-18); BUN/Creat Ratio 27.2 RATIO (10-20); Bilirubin, Direct 0.12 mg/dL (0.00-0.30); Calcium,Total 7.1 mg/dL (8.5-10.1); Chloride 127 mmol/L (98-107); Creatinine, Serum 2.83 mg/dL (0.55-1.02); EST Glomerular Filtration Rate 18 mL/min (>60); Est Glom Filt Rate - Afr Amer 21 mL/min (>60); Estimated Creatinine Clearance 20.43 ml/min; Globulin 3.2 g/dL (2.2-4.2); Glucose 268 mg/dL (74-106); Magnesium 1.8 mg/dL (1.6-2.6); Potassium 4.1 mmol/L (3.5-5.1); Protein, Total 5.4 g/dL (6.4-8.2); Sodium Level 152 mmol/L (136-145); Thyroid Stim Hormone (TSH) 0.34 uIU/mL (0.358-3.74)
--- NOTE | 2021-05-22 06:25 | PCM.PN.INT ---
Assessment & Plan Assessment/Plan (1) Septic shock: PLAN: RECOMMENDATIONS: 1. Continue empiric antimicrobials. 2. Wean Levophed to maintain a mean arterial pressure at or above 65 mmHg. 3. Given n.p.o. status and continued elevation in sodium and chloride, will continue D5W. 4. Wean supplemental oxygen to maintain saturations at or above 90%. 5. The patient is to remain n.p.o., pending further evaluation by speech therapy. 6. Obtain echocardiogram 7. Continue appropriate ICU prophylaxis. IMPRESSIONS: 1. Septic shock The patient presented with septic shock with multiple possible sources of infection including underlying pneumonia and urinary tract infection. She does have evidence of sepsis induced organ dysfunction as manifested by encephalopathy, acute kidney injury and fluid refractory hypotension, necessitating vasopressor support. She does have a history of prior hospital admissions for sepsis along with a history of achalasia putting her at high risk for aspiration. The patient did receive appropriate IV fluid hydration and ultimately required Levophed to maintain hemodynamic stability. Plan to continue broad-spectrum antimicrobials, pending further infectious work-up. Goal to maintain a mean arterial pressure at or above 65 mmHg. 2. Acute kidney injury/hypernatremia Improving. Most likely prerenal in etiology and related to free water loss in the setting of septic shock. Continue current supportive measures. Nephrology is following to assist with medical management. 3. Metabolic encephalopathy Improved. Most likely related to underlying infection and profound metabolic derangements. Continue supportive measures as noted above. 4. Troponin elevation/atrial fibrillation with RVR Likely secondary to demand ischemia in the setting #1. In light of elevated troponins and atrial fibrillation, will obtain echocardiogram. 5. History of dementia/paroxysmal atrial fibrillation/hypertension/hyperlipidemia/achalasia/diabetes mellitus Complicates care, management, recovery and prognosis. Continue to hold home antihypertensives. Initiate sliding scale insulin coverage. The patient will require formal evaluation by speech therapy prior to consideration for advancement of diet. TIME: 35 minutes of critical care time, independent of procedures, was spent addressing the patient's septic shock, acute kidney injury, hypernatremia, metabolic encephalopathy, troponin elevation, review of all data and collaboration with the care team. Subjective Subjective The patient was seen and examined at the bedside this morning. Events from the last 24 hours have been reviewed. The patient is currently afebrile and maintaining appropriate oxygen saturations on 2 L/min via nasal cannula. The patient is currently requiring Levophed at 10 mcg/min to maintain hemodynamic stability. Shortly after arriving to the ICU yesterday, the patient became more alert and significantly agitated. The patient responded quite well to the administration of Geodon. She has not required any further doses of the medication overnight. D5W was started last evening after her sodium and chloride remained elevated on subsequent lab draws. She is currently documented to be overall net +4.9 L for the hospitalization. White count has improved to 14,000. Sodium has improved to 152 with a chloride of 127, BUN of 77 and creatinine of 2.83. The patient is much more alert and interactive this morning, but remains confused. Objective Data Objective Data The patient's most recent lab work, culture data and imaging studies have all been personally reviewed. Surface echocardiogram from January 2020 demonstrated stage II diastolic dysfunction. Rapid coronavirus antigen testing was negative. Blood, sputum and urine cultures are pending. Respiratory viral panel was negative. Strep and urine Legionella antigens were negative. Vital Signs: Vital Signs Temp Pulse Resp BP Pulse Ox 99.1 F 88 17 86/54 L 97 05/22/21 06:00 05/22/21 06:00 05/22/21 06:00 05/22/21 06:00 05/22/21 06:00 Oxygen Flow Rate (L/min) 2 Oxygen Delivery Method Nasal Cannula Weight: 67.1 kg Body Mass Index (BMI) 28.9 Intake & Output: Intake and Output for Last 24 Hours 05/20/21 05/21/21 05/22/21 23:59 23:59 23:59 Intake Total 4198.93 / 4203.63 2049.15 / 2049.15 Output Total 735 / 735 600 / 600 Balance 3463.93 / 3468.63 1449.15 / 1449.15 Lab / Micro Data Attestation: I reviewed the patient's lab results. Result Diagrams: 05/22/21 04:25 05/22/21 04:25 Labs: Laboratory Results - last 24 hr 05/21/21 09:20: WBC 21.6 H, RBC 5.66 H, Hgb 16.1 H, Hct 51.4 H, MCV 90.8, MCH 28.4, MCHC 31.3 L, RDW Std Deviation 59.0 H, RDW Coeff of Jesica 18.6 H, Plt Count 233, MPV 12.7 H, Immature Gran % (Auto) 0.500, Neut % (Auto) 87.4 H, Lymph % (Auto) 7.6 L, [place] % (Auto) 4.2, Eos % (Auto) 0.0, Baso % (Auto) 0.3, Absolute Neuts (auto) 18.9 H, Absolute Lymphs (auto) 1.63, Nucleated RBC % 0 05/21/21 09:20: Sodium 161 H*, Potassium 5.1, Chloride 132 H*, Carbon Dioxide 24.0, Anion Gap 5, BUN 115 H*, Creatinine 6.17 H, Estim Creat Clear Calc 9.22, Est GFR (MDRD) Af Amer 9 L, Est GFR (MDRD) Non-Af 7 L, BUN/Creatinine Ratio 18.6, Glucose 147 H, Calcium 8.9, Total Bilirubin 0.40, AST 144 H, ALT 72 H, Alkaline Phosphatase 100, Troponin I High Sens 220 H*, Total Protein 7.5, Albumin 3.1 L, Globulin 4.4 H, Albumin/Globulin Ratio 0.7 L 05/21/21 09:20: Lactic Acid 1.8 05/21/21 11:00: Urine Color Yellow, Urine Clarity Cloudy, Urine pH 5.0, Ur Specific [place] 1.025, Urine Protein 100 H, Urine Glucose (UA) Normal, Urine Ketones 5 H, Urine Occult Blood 50 H, Urine Nitrite Negative, Urine Bilirubin 6 H, Urine Urobilinogen Normal, Ur Leukocyte Esterase 500 H, Urine RBC 0-5 SEEN, Urine WBC >100 SEEN, Ur Squamous Epith Cells 0-5 SEEN, Urine Bacteria 3+, Urine Mucus RARE 05/21/21 13:10: MRSA (PCR) Negative 05/21/21 13:15: Sodium 160 H, Potassium 4.6, Chloride 134 H*, Carbon Dioxide 20.0 L, Anion Gap 6, BUN 108 H*, Creatinine 5.34 H, Estim Creat Clear Calc 10.51, Est GFR (MDRD) Af Amer 10 L, Est GFR (MDRD) Non-Af 9 L, BUN/Creatinine Ratio 20.2 H, Glucose 250 H, Calcium 7.3 L, Total Bilirubin 0.50, AST 135 H, ALT 70 H, Alkaline Phosphatase 81, Troponin I High Sens 467 H*, Total Protein 6.0 L, Albumin 2.4 L, Globulin 3.6, Albumin/Globulin Ratio 0.7 L 05/21/21 16:13: POC Glucose 226 H 05/21/21 18:30: Sodium 163 H*, Potassium 4.2, Chloride 138 H*, Carbon Dioxide 21.0, Anion Gap 4 L, BUN 102 H*, Creatinine 4.59 H, Estim Creat Clear Calc 12.22, Est GFR (MDRD) Af Amer 12 L, Est GFR (MDRD) Non-Af 10 L, BUN/Creatinine Ratio 22.2 H, Glucose 143 H, Calcium 7.4 L, Troponin I High Sens 589 H* 05/21/21 21:56: POC Glucose 140 H 05/22/21 04:25: WBC 13.8 H, RBC 4.01 L, Hgb 11.3 L, Hct 37.1, MCV 92.5, MCH 28.2, MCHC 30.5 L, RDW Std Deviation 60.5 H, RDW Coeff of [place] 17.7 H, Plt Count 159, MPV 12.5 H, Immature Gran % (Auto) 0.500, Neut % (Auto) 82.5 H, Lymph % (Auto) 11.5 L, [place] % (Auto) 4.5, Eos % (Auto) 0.7, Baso % (Auto) 0.3, Absolute Neuts (auto) 11.3 H, Absolute Lymphs (auto) 1.58, Nucleated RBC % 0 05/22/21 04:25: Sodium 152 H, Potassium 4.1, Chloride 127 H*, Carbon Dioxide 22.0, Anion Gap 3 L, BUN 77 H, Creatinine 2.83 H, Estim Creat Clear Calc 20.43, Est GFR (MDRD) Af Amer 21 L, Est GFR (MDRD) Non-Af 18 L, BUN/Creatinine Ratio 27.2 H, Glucose 268 H, Calcium 7.1 L, Magnesium 1.8, Total Bilirubin 0.30, Direct Bilirubin 0.12, AST 93 H, ALT 68 H, Alkaline Phosphatase 73, Total Protein 5.4 L, Albumin 2.2 L, Globulin 3.2, TSH 0.34 L 05/22/21 04:25: Random Vancomycin 9.6 Micro: Microbiology 03/08/22 Unknown Mucosa - Nasopharyngeal Respiratory Panel (PCR) - Final 05/21/21 11:00 Urine Catheter - Hdez Legionella Antigen - Final 05/21/21 11:00 Urine Catheter - Hdez Streptococcus pneumoniae Antigen (M - Final 05/21/21 Unknown Mucosa - Nasopharyngeal Influenza Types A,B Direct FA ([place]) - Final 05/21/21 09:50 Nasal Secretion SARS-CoV-2 Antigen (Rapid) - Final ABG Data ABG results: ABG 05/21/21 13:35 Specimen Type ART Sample Site R Radial pH 7.30 L Bicarbonate Actual 19.7 L Total CO2 21 Base Excess -7 L O2 Saturation 86 L ABG pCO2 40.0 ABG pO2 56 L Zackery Test Positive O2 Delivery Device Room Air Radiography Diagnostic Testing: Radiology Impression Chest X-Ray 05/21/21 09:32 IMPRESSION: Patchy left lower lobe infiltrate. Electronically Signed: Alex Meadows MD at 10:38 EST , Chest X-Ray 05/21/21 11:35 IMPRESSION: The tip of the right subclavian venous catheter is at the junction of the superior vena cava and right atrium. Electronically Signed: Alex Meadows MD at 12:41 EST , Physical Exam Const alert Constitutional Narrative: Frail and cachectic. Chronically ill in appearance. General Appearance: appears older than stated age Orientation / Consciousness: confused HEENT normocephalic and head/scalp atraumatic HEENT Narrative: Edentulous. Eyes PERRL and EOMs intact bilaterally Neck supple General: trachea midline and CVC in place Chest inspection of chest normal Resp Resp Narrative: Scant rhonchi with moist cough. Effort and Inspection: tachypneic Auscultation: diminished lung sounds Cardio regular rate and regular rhythm GI normal to inspection, nondistended, normoactive bowel sounds Extremity no clubbing, cyanosis or edema Skin no rashes or lesions noted Neuro moves all extremities and no focal motor deficits Psych Activity / Motor Behavior: restless Charges/Coding Procedures Hospitalists Procedures: 21773 Critial Care 1st Hr
[2021-05-22] MEDS: Insulin Lispro 100 UNIT/ML INSULN.PEN SC ×4 (06:39→21:12)
[2021-05-22] MEDS: Heparin Injection (Vial) 5,000 UNIT/ML VIAL 5000 UNIT SC ×3 (06:43→21:11)
[2021-05-22 06:51] LABS: Bedside Glucose 200 mg/dL (74-106)
--- NOTE | 2021-05-22 07:02 | PCM.RX.CS ---
Consult Type of Consult: Follow-up Suspected Infection: Sepsis Labs: Sodium 152 mmol/L (136-145) H 05/22/21 04:25 Potassium 4.1 mmol/L (3.5-5.1) 05/22/21 04:25 Chloride 127 mmol/L (98-107) H* 05/22/21 04:25 Carbon Dioxide 22.0 mmol/L (21.0-32.0) 05/22/21 04:25 Anion Gap 3 (5-15) L 05/22/21 04:25 BUN 77 mg/dL (7-18) H 05/22/21 04:25 Creatinine 2.83 mg/dL (0.55-1.02) H 05/22/21 04:25 Est GFR (MDRD) Af Amer 21 mL/min (>60) L 05/22/21 04:25 Est GFR (MDRD) Non-Af 18 mL/min (>60) L 05/22/21 04:25 BUN/Creatinine Ratio 27.2 RATIO (10-20) H 05/22/21 04:25 Glucose 268 mg/dL (74-106) H 05/22/21 04:25 Random Vancomycin 9.6 ug/mL (0.0-15.0) 05/22/21 04:25 Microbiology: Microbiology 05/21/21 Unknown Mucosa - Nasopharyngeal Respiratory Panel (PCR) - Final 05/21/21 11:00 Urine Catheter - Hdez Legionella Antigen - Final 05/21/21 11:00 Urine Catheter - Hdez Streptococcus pneumoniae Antigen (M - Final 05/21/21 Unknown Mucosa - Nasopharyngeal Influenza Types A,B Direct FA ([place]) - Final 05/21/21 09:50 Nasal Secretion SARS-CoV-2 Antigen (Rapid) - Final Goal Trough: 15-20 mcg/mL Pharmacy Plan for Drug Dosing: VANCOMYCIN LEVEL RECEIVED Current Vancomycin Dose: 1000mg x1 dose given @ 1013 05/21/21 Number of Doses Received: 1 Vancomycin Level: 9.6 Hours Since Last Dose: 18 Renal Function: sCr 2.83 and CrCl ~ 20 mL/min Renal Function Trend: improving Vancomycin Plan/Comments: Vancomycin 1000mg x1 dose to be given @ 0700 05/22/21 Pending Level: Random Vancomycin level with AM labs 05/23/21 Pharmacy Service will continue to monitor and adjust dosing as required. Labs to be done on [date and time ordered]: Random Vancomycin level with AM labs 05/23/21
--- NOTE | 2021-05-22 07:11 | PCM.PN.HOSP ---
Subjective Subjective Patient is a 66-year-old lady resident is in a [facility] care facility brought in with altered mental status and assessment of acute metabolic encephalopathy septic shock made admitted to the intensive care unit where patient is currently being managed. Patient level of sensorium did improve resulting in patient becoming restless and delirious. She did receive Haldol and later Geodon. Patient also had to be started on Levophed in view of persistently low blood pressure which had failed to respond to IV fluids Objective Data Objective Data Vital Signs: Vital Signs Temp Pulse Resp BP Pulse Ox 98.7 F 66 18 93/61 99 05/22/21 07:00 05/22/21 07:00 05/22/21 07:00 05/22/21 07:00 05/22/21 07:00 Oxygen Flow Rate (L/min) 2 Oxygen Delivery Method Nasal Cannula Weight: 67.1 kg Body Mass Index (BMI) 28.9 Intake & Output: Intake and Output for Last 24 Hours 05/20/21 05/21/21 05/22/21 23:59 23:59 23:59 Intake Total 4198.93 / 4203.63 2267.18 / 2267.18 Output Total 735 / 735 600 / 600 Balance 3463.93 / 3468.63 1667.18 / 1667.18 Lab / Micro Data Result Diagrams: 05/22/21 04:25 05/22/21 04:25 Labs: Laboratory Results - last 24 hr 05/21/21 09:20: WBC 21.6 H, RBC 5.66 H, Hgb 16.1 H, Hct 51.4 H, MCV 90.8, MCH 28.4, MCHC 31.3 L, RDW Std Deviation 59.0 H, RDW Coeff of Jesica 18.6 H, Plt Count 233, MPV 12.7 H, Immature Gran % (Auto) 0.500, Neut % (Auto) 87.4 H, Lymph % (Auto) 7.6 L, [place] % (Auto) 4.2, Eos % (Auto) 0.0, Baso % (Auto) 0.3, Absolute Neuts (auto) 18.9 H, Absolute Lymphs (auto) 1.63, Nucleated RBC % 0 05/21/21 09:20: Sodium 161 H*, Potassium 5.1, Chloride 132 H*, Carbon Dioxide 24.0, Anion Gap 5, BUN 115 H*, Creatinine 6.17 H, Estim Creat Clear Calc 9.22, Est GFR (MDRD) Af Amer 9 L, Est GFR (MDRD) Non-Af 7 L, BUN/Creatinine Ratio 18.6, Glucose 147 H, Calcium 8.9, Total Bilirubin 0.40, AST 144 H, ALT 72 H, Alkaline Phosphatase 100, Troponin I High Sens 220 H*, Total Protein 7.5, Albumin 3.1 L, Globulin 4.4 H, Albumin/Globulin Ratio 0.7 L 05/21/21 09:20: Lactic Acid 1.8 05/21/21 11:00: Urine Color Yellow, Urine Clarity Cloudy, Urine pH 5.0, Ur Specific [place] 1.025, Urine Protein 100 H, Urine Glucose (UA) Normal, Urine Ketones 5 H, Urine Occult Blood 50 H, Urine Nitrite Negative, Urine Bilirubin 6 H, Urine Urobilinogen Normal, Ur Leukocyte Esterase 500 H, Urine RBC 0-5 SEEN, Urine WBC >100 SEEN, Ur Squamous Epith Cells 0-5 SEEN, Urine Bacteria 3+, Urine Mucus RARE 05/21/21 13:10: MRSA (PCR) Negative 05/21/21 13:15: Sodium 160 H, Potassium 4.6, Chloride 134 H*, Carbon Dioxide 20.0 L, Anion Gap 6, BUN 108 H*, Creatinine 5.34 H, Estim Creat Clear Calc 10.51, Est GFR (MDRD) Af Amer 10 L, Est GFR (MDRD) Non-Af 9 L, BUN/Creatinine Ratio 20.2 H, Glucose 250 H, Calcium 7.3 L, Total Bilirubin 0.50, AST 135 H, ALT 70 H, Alkaline Phosphatase 81, Troponin I High Sens 467 H*, Total Protein 6.0 L, Albumin 2.4 L, Globulin 3.6, Albumin/Globulin Ratio 0.7 L 05/21/21 16:13: POC Glucose 226 H 05/21/21 18:30: Sodium 163 H*, Potassium 4.2, Chloride 138 H*, Carbon Dioxide 21.0, Anion Gap 4 L, BUN 102 H*, Creatinine 4.59 H, Estim Creat Clear Calc 12.22, Est GFR (MDRD) Af Amer 12 L, Est GFR (MDRD) Non-Af 10 L, BUN/Creatinine Ratio 22.2 H, Glucose 143 H, Calcium 7.4 L, Troponin I High Sens 589 H* 05/21/21 21:56: POC Glucose 140 H 05/22/21 04:25: WBC 13.8 H, RBC 4.01 L, Hgb 11.3 L, Hct 37.1, MCV 92.5, MCH 28.2, MCHC 30.5 L, RDW Std Deviation 60.5 H, RDW Coeff of Jesica 17.7 H, Plt Count 159, MPV 12.5 H, Immature Gran % (Auto) 0.500, Neut % (Auto) 82.5 H, Lymph % (Auto) 11.5 L, [place] % (Auto) 4.5, Eos % (Auto) 0.7, Baso % (Auto) 0.3, Absolute Neuts (auto) 11.3 H, Absolute Lymphs (auto) 1.58, Nucleated RBC % 0 05/22/21 04:25: Sodium 152 H, Potassium 4.1, Chloride 127 H*, Carbon Dioxide 22.0, Anion Gap 3 L, BUN 77 H, Creatinine 2.83 H, Estim Creat Clear Calc 20.43, Est GFR (MDRD) Af Amer 21 L, Est GFR (MDRD) Non-Af 18 L, BUN/Creatinine Ratio 27.2 H, Glucose 268 H, Calcium 7.1 L, Magnesium 1.8, Total Bilirubin 0.30, Direct Bilirubin 0.12, AST 93 H, ALT 68 H, Alkaline Phosphatase 73, Total Protein 5.4 L, Albumin 2.2 L, Globulin 3.2, TSH 0.34 L 05/22/21 04:25: Random Vancomycin 9.6 05/22/21 06:40: POC Glucose 200 H Micro: Microbiology 05/21/21 Unknown Mucosa - Nasopharyngeal Respiratory Panel (PCR) - Final 05/21/21 11:00 Urine Catheter - Hdez Legionella Antigen - Final 05/21/21 11:00 Urine Catheter - Hdez Streptococcus pneumoniae Antigen (M - Final 05/21/21 Unknown Mucosa - Nasopharyngeal Influenza Types A,B Direct FA ([place]) - Final 05/21/21 09:50 Nasal Secretion SARS-CoV-2 Antigen (Rapid) - Final ABG Data ABG results: ABG 05/21/21 13:35 Specimen Type ART Sample Site R Radial pH 7.30 L Bicarbonate Actual 19.7 L Total CO2 21 Base Excess -7 L O2 Saturation 86 L ABG pCO2 40.0 ABG pO2 56 L Zackery Test Positive O2 Delivery Device Room Air Radiography Diagnostic Testing: Radiology Impression Chest X-Ray 05/21/21 09:32 IMPRESSION: Patchy left lower lobe infiltrate. Electronically Signed: Alex Meadows MD at 10:38 EST , Chest X-Ray 05/21/21 11:35 IMPRESSION: The tip of the right subclavian venous catheter is at the junction of the superior vena cava and right atrium. Electronically Signed: Alex Meadows MD at 12:41 EST , Physical Exam Narrative GENERAL: Awake responding to questions with simple answers HEENT: Atraumatic; EYES; Anicteric, Normal Conjunctiva NECK; supple, normal thyroid, RESPIRATORY: Diminished to auscultation CARDIOVASCULAR: Regular S1 S2, GI: soft, normoactive bowel sounds, : No Renal angle tenderness; EXTREMITIES: No edema, no clubbing, MUSCULOSKELETAL: no muscle wasting NEURO: No lateralizing signs SKIN: No Rash PSYCH; Flat affect Assessment & Plan Assessment/Plan (1) Chronic insomnia: (2) UTI (urinary tract infection): (3) Delirium: (4) Hypotension: (5) Infectious encephalopathy: (6) Acute prerenal azotemia: (7) Septic shock: (8) Pneumonia: (9) Acute kidney injury: (10) Acute UTI: (11) Acute hypernatremia: (12) Acute hypotension: PLAN: Patient is a 66-year-old resident of an [facility] brought in with altered mental status 1. Acute metabolic encephalopathy ?Multifactorial from sepsis, BRIAN, infectious etiology (pneumonia and UTI). Patient has been admitted to the intensive care unit with treatment of conditions contributing to patient encephalopathy -10/22/2021. Patient level of sensorium improving 2. Septic shock ?Patient qSOFA on admission was 3. Has elevated WBC count MAP less than 65 creatinine greater than 2 respiratory rate greater than 20 heart rate greater than 90. Patient did not respond to initial fluid resuscitation in the ER. Continues IV fluid resuscitation continued in the ICU. Cultures were obtained in the ED. Patient started on broad-spectrum antibiotic therapy with Zosyn Levaquin and vancomycin with consultation placed to ID and electronic console display operator -10/22/2021. Patient had to be started on Levophed in view of persistently low blood pressure which had failed to respond to fluids 3. Pneumonia ?Patient is at significant risk for MDR's. Patient was therefore started on broad-spectrum antibiotic therapy to cover for both Pseudomonas as well as MRSA pending culture result -10/22/2021; cultures pending 4. Complicated acute cystitis ?Patient is on broad-spectrum antibiotic therapy cultures sent - -10/22/2021; cultures pending 5. Acute kidney injury ?Possibly ATN patient is on aggressive IV fluid resuscitation with monitoring of electrolytes with consultation placed to nephrology Case discussed with Dr. Barrios - 05/22/2021; patient kidney function remains impaired with a creatinine of 2.83 6. Mild hyperkalemia ?Secondary to #5 do expect improvement with treatment of patient's BRIAN -05/22/2021 potassium down to 4.1 7. Hypernatremia ?Secondary to severe dehydration and hypovolemia. Patient is on aggressive IV fluid resuscitation with saline initially with plans to switch to 0.45 saline with serial monitoring with BMP ordered every 4. Nephrology on case -05/22/2021 sodium level down to 152 chloride remains elevated at 127 8. Elevated troponin secondary to acute non-STEMI type II ?As a result of patient underlying infection and sepsis -05/22/2021 patientTroponin continues to rise 589 as of last evening. 2D echo ordered for regional wall motion abnormalities Assessment 9. Essential hypertension ?Patient antihypertensives on hold 10. Dyslipidemia ?Patient was previously on statin therapy currently not on the med/ 11. Paroxysmal A. fib ?Currently in sinus rhythm 12. Diabetes mellitus type 2 ?Patient is on Metformin this was held please on Accu-Cheks every 6 with insulin coverage 13. Achalasia ?Patient has history of previous esophageal food impaction 14. Dementia ?Per history supportive care 15. DVT prophylaxis ?SC heparin CODE STATUS; per documentation from [facility] chart full code Charges/Coding Visit Charges Inpatient E&M: 32433 Subs Hosp L3
[2021-05-22] MEDS: Budesonide Respules 0.5 MG/2 ML AMPUL.NEB. INHALATION ×2 (07:15→19:10)
[2021-05-22] MEDS: Albuterol 2.5 MG/3 ML VIAL.NEB. INHALATION ×3 (07:15→19:10)
[2021-05-22] MEDS: Vancomycin IV 1,000 MG/200 ML BAG 200 MG IV (07:41)
[2021-05-22] MEDS: Nystatin Powder 15gm Bottle 1 APPLIC TOPICAL ×2 (07:44→21:11)
[2021-05-22] MEDS: Ziprasidone IM 20 MG/ML VIAL 10 MG IM (09:36)
[2021-05-22] MEDS: TITRATION PARAMETER CHANGE 1 EACH IV (09:36)
--- NOTE | 2021-05-22 09:51 | CASEMGMT ---
Social Work Pt is currently a usp resident at [facility]. Phone call to pt ksenia Luna who confirms pt will return to [facility] upon discharge. Phone call to Juarez at [facility] and they can accept pt back when medically ready. Clinical updates faxed to [facility]. Plan: [facility], when medically ready. PARTH Martínez
--- NOTE | 2021-05-22 10:00 | EKG12_ITS ---
Test Reason : EKG CHANGE Blood Pressure : / mmHG Vent. Rate : 151 BPM Atrial Rate : 182 BPM P-R Int : 000 ms QRS Dur : 074 ms QT Int : 308 ms P-R-T Axes : 000 034 019 degrees QTc Int : 488 ms Atrial fibrillation Abnormal ECG When compared with ECG of 21-MAY-2021 09:57, Atrial fibrillation has replaced Sinus rhythm Confirmed by EILEEN RAO, VALDO ([id number]), rewrite editor JOSE GEORGE ([id number]) on 05/23/2021 10:31:04 AM Referred By: Confirmed By:VALDO ARELLANO MD
--- NOTE | 2021-05-22 10:06 | ECHOD_ITS ---
Reason For Study: ATRIAL FIB-FLUTTER Procedure This was a 2D Doppler, Color Flow transthoracic echocardiogram. The study was technically difficult. Patient agitated and uncooperative. Unable to remain in position during exam. Exam performed portable in ICU/CCU. Left Ventricle Normal LV size. Left ventricular systolic function is normal. The estimated ejection fraction is 65 %. No regional wall motion abnormalities noted. Right Ventricle Normal RV size. Normal systolic function. Atria Normal left atrium. Normal right atrium. Mitral Valve There is moderate mitral annular calcification. Tricuspid Valve Normal tricuspid valve. Mild tricuspid valve insufficiency. Pulmonary artery systolic pressure is 26 mmHg. Aortic Valve Normal aortic valve. Pulmonic Valve The pulmonic valve is not well visualized. Great Vessels Normal aortic root. Pericardium/Pleural No pericardial effusion. MMode/2D Measurements & Calculations Ao root diam: 3.1 cm LAV(MOD-bp): 33.6 ml LVAd ap2: 16.1 cm2 LAV(MOD-bp) Indexed: 20.7 ml/m2 LVLd ap2: 5.9 cm LAV(MOD-sp2): 33.9 ml EDV(MOD-sp2): 34.6 ml LAV(MOD-sp4): 33.1 ml EDV(sp2-el): 36.9 ml LVAs ap2: 8.4 cm2 LVLs ap2: 4.8 cm ESV(MOD-sp2): 12.9 ml ESV(sp2-el): 12.5 ml EF(MOD-sp2): 62.6 % SV(MOD-sp2): 21.6 ml LA A4 area: 13.9 cm2 LA dimension(2D): 3.3 cm RA A4 area: 12.3 cm2 Doppler Measurements & Calculations MV E max corky: 147.3 cm/sec Ao V2 max: 141.7 cm/sec LV V1 max: 152.0 cm/sec Ao max P.3 mmHg LV V1 max P.3 mmHg PA V2 max: 106.6 cm/sec TR max corky: 234.3 cm/sec TR max P.0 mmHg ECHO/Echo Complete Interpretation Summary Normal LV size. Left ventricular systolic function is normal. The estimated ejection fraction is 65 %. There is moderate mitral annular calcification. Pulmonary artery systolic pressure is 26 mmHg. Ordering Physician: Reji Enciso Referring Physician: JENNIFER AKINS Performed By: Lacey Soni RDCS
[2021-05-22 11:07] LABS: Bedside Glucose 248 mg/dL (74-106)
--- NOTE | 2021-05-22 11:12 | PCM.PN.REN ---
Subjective Subjective no new complaints. more alert, low dose pressors. urine output is good. cr better. lytes ok Objective Data Objective Data Vital Signs: Vital Signs Temp Pulse Resp BP Pulse Ox 99.8 F H 164 H 25 H 110/67 96 05/22/21 11:00 05/22/21 11:05 05/22/21 11:00 05/22/21 11:00 05/22/21 10:00 Oxygen Flow Rate (L/min) 2 Oxygen Delivery Method Nasal Cannula Weight: 67.1 kg Body Mass Index (BMI) 28.9 Intake & Output: Intake and Output for Last 24 Hours 05/20/21 05/21/21 05/22/21 23:59 23:59 23:59 Intake Total 4198.93 / 4203.63 3627.01 / 3627.01 Output Total 735 / 735 1095 / 1095 Balance 3463.93 / 3468.63 2532.01 / 2532.01 Lab / Micro Data Result Diagrams: 05/22/21 04:25 05/22/21 04:25 Labs: Laboratory Results - last 24 hr 05/21/21 11:00: Urine Color Yellow, Urine Clarity Cloudy, Urine pH 5.0, Ur Specific [place] 1.025, Urine Protein 100 H, Urine Glucose (UA) Normal, Urine Ketones 5 H, Urine Occult Blood 50 H, Urine Nitrite Negative, Urine Bilirubin 6 H, Urine Urobilinogen Normal, Ur Leukocyte Esterase 500 H, Urine RBC 0-5 SEEN, Urine WBC >100 SEEN, Ur Squamous Epith Cells 0-5 SEEN, Urine Bacteria 3+, Urine Mucus RARE 05/21/21 13:10: MRSA (PCR) Negative 05/21/21 13:15: Sodium 160 H, Potassium 4.6, Chloride 134 H*, Carbon Dioxide 20.0 L, Anion Gap 6, BUN 108 H*, Creatinine 5.34 H, Estim Creat Clear Calc 10.51, Est GFR (MDRD) Af Amer 10 L, Est GFR (MDRD) Non-Af 9 L, BUN/Creatinine Ratio 20.2 H, Glucose 250 H, Calcium 7.3 L, Total Bilirubin 0.50, AST 135 H, ALT 70 H, Alkaline Phosphatase 81, Troponin I High Sens 467 H*, Total Protein 6.0 L, Albumin 2.4 L, Globulin 3.6, Albumin/Globulin Ratio 0.7 L 05/21/21 16:13: POC Glucose 226 H 05/21/21 18:30: Sodium 163 H*, Potassium 4.2, Chloride 138 H*, Carbon Dioxide 21.0, Anion Gap 4 L, BUN 102 H*, Creatinine 4.59 H, Estim Creat Clear Calc 12.22, Est GFR (MDRD) Af Amer 12 L, Est GFR (MDRD) Non-Af 10 L, BUN/Creatinine Ratio 22.2 H, Glucose 143 H, Calcium 7.4 L, Troponin I High Sens 589 H* 05/21/21 21:56: POC Glucose 140 H 05/22/21 04:25: WBC 13.8 H, RBC 4.01 L, Hgb 11.3 L, Hct 37.1, MCV 92.5, MCH 28.2, MCHC 30.5 L, RDW Std Deviation 60.5 H, RDW Coeff of Jesica 17.7 H, Plt Count 159, MPV 12.5 H, Immature Gran % (Auto) 0.500, Neut % (Auto) 82.5 H, Lymph % (Auto) 11.5 L, [place] % (Auto) 4.5, Eos % (Auto) 0.7, Baso % (Auto) 0.3, Absolute Neuts (auto) 11.3 H, Absolute Lymphs (auto) 1.58, Nucleated RBC % 0 05/22/21 04:25: Sodium 152 H, Potassium 4.1, Chloride 127 H*, Carbon Dioxide 22.0, Anion Gap 3 L, BUN 77 H, Creatinine 2.83 H, Estim Creat Clear Calc 20.43, Est GFR (MDRD) Af Amer 21 L, Est GFR (MDRD) Non-Af 18 L, BUN/Creatinine Ratio 27.2 H, Glucose 268 H, Calcium 7.1 L, Magnesium 1.8, Total Bilirubin 0.30, Direct Bilirubin 0.12, AST 93 H, ALT 68 H, Alkaline Phosphatase 73, Total Protein 5.4 L, Albumin 2.2 L, Globulin 3.2, TSH 0.34 L 05/22/21 04:25: Random Vancomycin 9.6 05/22/21 06:40: POC Glucose 200 H 05/22/21 10:55: POC Glucose 248 H Micro: Microbiology 05/21/21 11:00 Urine, Clean Catch Urine Culture - Preliminary Gram negative shahriar 05/21/21 09:50 Nasal Secretion SARS-CoV-2 Antigen (Rapid) - Final 05/21/21 Unknown Mucosa - Nasopharyngeal Respiratory Panel (PCR) - Final 05/21/21 11:00 Urine Catheter - Taylor Legionella Antigen - Final 05/21/21 11:00 Urine Catheter - Taylor Streptococcus pneumoniae Antigen (M - Final 05/21/21 Unknown Mucosa - Nasopharyngeal Influenza Types A,B Direct FA ([place]) - Final ABG Data ABG results: ABG 05/21/21 13:35 Specimen Type ART Sample Site R Radial pH 7.30 L Bicarbonate Actual 19.7 L Total CO2 21 Base Excess -7 L O2 Saturation 86 L ABG pCO2 40.0 ABG pO2 56 L Zackery Test Positive O2 Delivery Device Room Air Radiography Diagnostic Testing: Radiology Impression Chest X-Ray 05/21/21 11:35 IMPRESSION: The tip of the right subclavian venous catheter is at the junction of the superior vena cava and right atrium. Electronically Signed: Alex Meadows MD at 12:41 EST , Physical Exam Narrative Alert awake no obvious distress no pallor no icterus no JVD s1s2 no murmurs lungs clear abdomen soft no organomegaly no edema no cyanosis taylor + Assessment & Plan Assessment/Plan (1) Acute hypernatremia: PLAN: likely due to poor oral intake at the [facility]. better. currently on D5W since she is NPO (2) Acute kidney injury: PLAN: Baseline creatinine was normal as of last year. She is a resident of [facility] as per history. likely ischemic ATN. urine output is good. BUN and cr better.
[2021-05-22] MEDS: LORazepam 2 MG/ML Syringe 1 MG IV (11:25)
--- NOTE | 2021-05-22 13:42 | PCM.CONS.GEN ---
Assessment & Plan Assessment/Plan (1) Septic shock: PLAN: On vanc/zosyn. Will stop levaquin. MRSA pcr neg. Ucx and sputum cx with GNR so far. If no GPCs seen, plan on stopping vanc tomorrow. Covid and resp pcr panel neg. BRIAN improving. Wbc and fever better. TTE showed no veg. Will follow, thank you, d/w nursing (2) Acute kidney injury: HPI Consult Data Date of Consult: 05/22/21 HPI Narrative HPI Narrative: STEPHAN KING, is a 66 F who presented from [facility] 05/21 with altered mental status. Found to have hypotension, hypernatremia, BRIAN, and fever. Cxs sent, admitted on pressors to icu with vanc/zosyn/levaquin. Seen by pulm and neph. Recent course of augmentin for possible aspiration. ROS unobtainable due to mental status PFSH Medical History Achalasia Acidosis Afib Anxiety Bipolar 1 disorder Delirium Dementia Diabetes mellitus, type II Hyperlipidemia Hypertension Insomnia Muscle weakness Psychosis Respiratory failure with hypoxia Schizophrenia Home Medications lisinopril 10 mg PO DAILY 12/01/13 [History Last Taken 06/08/20] aspirin 81 mg PO DAILY 05/18/19 [History Last Taken 06/08/20 09:36] metformin 500 mg PO BID 05/18/19 [History Last Taken 06/08/20 09:35] oxybutynin chloride 5 mg PO BID 05/18/19 [History Last Taken 06/06/20] albuterol sulfate 2 puff IH 4X/DAY 04/01/20 [History Last Taken 06/06/20] alum-mag hydroxide-simeth 30 ml PO Q4H PRN PRN 04/01/20 [History Last Taken Unknown] bisacodyl 10 mg RC DAILY PRN PRN 04/01/20 [History Last Taken Unknown] guaifenesin 10 ml PO Q4H PRN PRN 04/01/20 [History Last Taken Unknown] acetaminophen 650 mg PO Q4H PRN PRN 06/08/20 [History Last Taken 06/05/20] acetaminophen 650 mg MD Q4H PRN 05/21/21 [History Last Taken Unknown] aripiprazole [Abilify] 10 mg PO BID 05/21/21 [History Last Taken Unknown] aripiprazole lauroxil [[place]rist[place]] 882 mg IM QMONTH 05/21/21 [History Last Taken Unknown] benztropine 1 mg PO DAILY 05/21/21 [History Last Taken Unknown] clonazepam 1 mg PO TID 05/21/21 [History Last Taken Unknown] dextrose [Glucose Gel] 10 g PO Q15M PRN 05/21/21 [History Last Taken Unknown] diphenhydramine HCl [Benadryl] 25 mg PO Q6H PRN PRN 05/21/21 [History Last Taken Unknown] glucagon [Glucagon Emergency Kit] 1 mg IM PRN PRN 05/21/21 [History Last Taken Unknown] guaifenesin 400 mg PO Q4H PRN 05/21/21 [History Last Taken Unknown] lamotrigine 25 mg PO DAILY 05/21/21 [History Last Taken Unknown] magnesium hydroxide [Milk of Magnesia] 30 ml PO DAILY PRN 05/21/21 [History Last Taken Unknown] melatonin 5 mg PO QHS 05/21/21 [History Last Taken Unknown] mometasone-formoterol [Dulera] 1 puff INHALATION DAILY 05/21/21 [History Last Taken Unknown] nystatin 1 applic TOPICAL BID 05/21/21 [History Last Taken Unknown] quetiapine 100 mg PO DAILY 05/21/21 [History Last Taken Unknown] quetiapine 200 mg PO QHS 05/21/21 [History Last Taken Unknown] sodium phosphates [Fleet Enema] 118 ml MD DAILY PRN 05/21/21 [History Last Taken Unknown] Allergy/AdvReac Type Severity Reaction Status Date / Time No Known Allergies Allergy Verified 05/21/21 09:22 Family History unable to obtain Surgical History unable to obtain Social History Smoking Status: Smoker, status unknown Physical Exam Const General Appearance: lethargic HEENT normocephalic and head/scalp atraumatic Eyes PERRL Neck supple and No nodes Resp Auscultation: rhonchi and wheezes Cardio regular rate and regular rhythm GI soft to palpation, non-tender and non-distended Extremity no clubbing, cyanosis or edema Skin no rashes or lesions noted Neuro Neuro Narrative: unable to follow commands Lab / Micro Data Result Diagrams: 05/22/21 04:25 05/22/21 04:25 Labs: Laboratory Results - last 24 hr 05/21/21 13:10: MRSA (PCR) Negative 05/21/21 13:15: Sodium 160 H, Potassium 4.6, Chloride 134 H*, Carbon Dioxide 20.0 L, Anion Gap 6, BUN 108 H*, Creatinine 5.34 H, Estim Creat Clear Calc 10.51, Est GFR (MDRD) Af Amer 10 L, Est GFR (MDRD) Non-Af 9 L, BUN/Creatinine Ratio 20.2 H, Glucose 250 H, Calcium 7.3 L, Total Bilirubin 0.50, AST 135 H, ALT 70 H, Alkaline Phosphatase 81, Troponin I High Sens 467 H*, Total Protein 6.0 L, Albumin 2.4 L, Globulin 3.6, Albumin/Globulin Ratio 0.7 L 05/21/21 16:13: POC Glucose 226 H 05/21/21 18:30: Sodium 163 H*, Potassium 4.2, Chloride 138 H*, Carbon Dioxide 21.0, Anion Gap 4 L, BUN 102 H*, Creatinine 4.59 H, Estim Creat Clear Calc 12.22, Est GFR (MDRD) Af Amer 12 L, Est GFR (MDRD) Non-Af 10 L, BUN/Creatinine Ratio 22.2 H, Glucose 143 H, Calcium 7.4 L, Troponin I High Sens 589 H* 05/21/21 21:56: POC Glucose 140 H 05/22/21 04:25: WBC 13.8 H, RBC 4.01 L, Hgb 11.3 L, Hct 37.1, MCV 92.5, MCH 28.2, MCHC 30.5 L, RDW Std Deviation 60.5 H, RDW Coeff of Jes[place] 17.7 H, Plt Count 159, MPV 12.5 H, Immature Gran % (Auto) 0.500, Neut % (Auto) 82.5 H, Lymph % (Auto) 11.5 L, [place] % (Auto) 4.5, Eos % (Auto) 0.7, Baso % (Auto) 0.3, Absolute Neuts (auto) 11.3 H, Absolute Lymphs (auto) 1.58, Nucleated RBC % 0 05/22/21 04:25: Sodium 152 H, Potassium 4.1, Chloride 127 H*, Carbon Dioxide 22.0, Anion Gap 3 L, BUN 77 H, Creatinine 2.83 H, Estim Creat Clear Calc 20.43, Est GFR (MDRD) Af Amer 21 L, Est GFR (MDRD) Non-Af 18 L, BUN/Creatinine Ratio 27.2 H, Glucose 268 H, Calcium 7.1 L, Magnesium 1.8, Total Bilirubin 0.30, Direct Bilirubin 0.12, AST 93 H, ALT 68 H, Alkaline Phosphatase 73, Total Protein 5.4 L, Albumin 2.2 L, Globulin 3.2, TSH 0.34 L 05/22/21 04:25: Random Vancomycin 9.6 05/22/21 06:40: POC Glucose 200 H 05/22/21 10:55: POC Glucose 248 H Micro: Microbiology 05/21/21 16:25 Sputum, Expectorated/Coughed Gram Stain - Final 05/21/21 16:25 Sputum, Expectorated/Coughed Respiratory Culture - Preliminary GNR lactose camp nurse 05/21/21 11:00 Urine, Clean Catch Urine Culture - Preliminary Gram negative shahriar 05/21/21 09:50 Nasal Secretion SARS-CoV-2 Antigen (Rapid) - Final 05/21/21 Unknown Mucosa - Nasopharyngeal Respiratory Panel (PCR) - Final 05/21/21 11:00 Urine Catheter - Hdez Legionella Antigen - Final 05/21/21 11:00 Urine Catheter - Hdez Streptococcus pneumoniae Antigen (M - Final 05/21/21 Unknown Mucosa - Nasopharyngeal Influenza Types A,B Direct FA ([place]) - Final Radiology Impression Echocardiogram 05/22/21 10:06 Interpretation Summary Normal LV size. Left ventricular systolic function is normal. The estimated ejection fraction is 65 %. There is moderate mitral annular calcification. Pulmonary artery systolic pressure is 26 mmHg. Ordering Physician: Reji Enciso Referring Physician: JENNIFER AKINS Performed By: Lacey Soni RDCS
[2021-05-22 16:51] LABS: Bedside Glucose 236 mg/dL (74-106)
[2021-05-22] MEDS: Menthol/Lanolin/Calamine/Znox 113 GM Tube 1 APPLIC TOPICAL (21:10)
[2021-05-22 21:26] LABS: Bedside Glucose 212 mg/dL (74-106)
[2021-05-23] VITALS (54 sets, daily range): BP systolic 64–141; BP diastolic 39–105; PULSE 61–91; RESP 13–33; TEMP 37.3–37.7; O2SAT 93–99
[2021-05-23] MEDS: LORazepam 2 MG/ML Syringe 1 MG IV ×3 (02:13→22:17)
[2021-05-23 04:06] LABS: Absolute Neutrophil Count 8.1 X10^3/uL (2.0-7.7); Basophil# 0.04 X10^3/uL; Basophil% 0.4 % (0-1); Eosinophil# 0.75 X10^3/uL; Eosinophils% 6.9 % (0-5); Hematocrit 34.5 % (37-47); Hemoglobin 10.7 g/dL (12.0-15.0); Mean Corpuscular Hgb 28.4 pg (27.0-32.0); Mean Corpuscular Volume 91.5 fL (81-99); Mean Platelet Vol. 12.5 fl (6.2-12.0); Monocyte# 0.48 X10^3/uL; Monocyte% 4.4 % (0-10); NRBC Flagged by Analyzer 0 % (0-5); Platelet Count 148 K/mm3 (150-450); RBC Distribution Width CV 17.1 % (11.6-14.6); RBC Distribution Width SD 57.1 fl (35.1-43.9); Red Blood Count 3.77 M/mm3 (4.2-5.4); White Blood Count 10.8 K/mm3 (4.4-11.0)
[2021-05-23 04:27] LABS: Vancomycin, Random Level 13.8 ug/mL (0.0-15.0)
[2021-05-23 05:28] LABS: Anion Gap 6 (5-15); BUN 42 mg/dL (7-18); BUN/Creat Ratio 31.6 RATIO (10-20); Calcium,Total 7.4 mg/dL (8.5-10.1); Chloride 118 mmol/L (98-107); Creatinine, Serum 1.33 mg/dL (0.55-1.02); EST Glomerular Filtration Rate 42 mL/min (>60); Est Glom Filt Rate - Afr Amer 51 mL/min (>60); Estimated Creatinine Clearance 43.48 ml/min; Glucose 190 mg/dL (74-106); Potassium 3.6 mmol/L (3.5-5.1); Sodium Level 145 mmol/L (136-145)
[2021-05-23] MEDS: Heparin Injection (Vial) 5,000 UNIT/ML VIAL 5000 UNIT SC ×3 (06:15→22:21)
[2021-05-23 06:31] LABS: Bedside Glucose 158 mg/dL (74-106)
[2021-05-23] MEDS: Budesonide Respules 0.5 MG/2 ML AMPUL.NEB. INHALATION ×2 (07:01→18:57)
[2021-05-23] MEDS: Albuterol 2.5 MG/3 ML VIAL.NEB. INHALATION ×3 (07:01→18:56)
--- NOTE | 2021-05-23 07:21 | PCM.PN.INT ---
Assessment & Plan Assessment/Plan (1) Septic shock: PLAN: RECOMMENDATIONS: 1. Continue empiric antimicrobials per ID recommendations. 2. Wean Levophed to maintain a mean arterial pressure at or above 65 mmHg. 3. Okay to discontinue D5W. 4. Wean supplemental oxygen to maintain saturations at or above 90%. 5. The patient is to remain n.p.o., pending further evaluation by speech therapy. Okay to proceed with MBS if needed. 6. Continue appropriate ICU prophylaxis. 7. I do anticipate the need for PEG tube placement for nutritional support. IMPRESSIONS: 1. Gram-negative septic shock The patient presented with septic shock secondary to gram-negative pneumonia and urinary tract infection. She did have evidence of sepsis induced organ dysfunction as manifested by encephalopathy, acute kidney injury and fluid refractory hypotension, necessitating vasopressor support. She does have a history of prior hospital admissions for sepsis along with a history of achalasia putting her at high risk for aspiration. The patient did receive appropriate IV fluid hydration and ultimately required Levophed to maintain hemodynamic stability. Plan to continue antimicrobials per ID recommendations. Goal to maintain a mean arterial pressure at or above 65 mmHg. 2. Acute kidney injury/hypernatremia Resolved. Most likely prerenal in etiology and related to free water loss in the setting of septic shock. Continue current supportive measures. Nephrology is following to assist with medical management. 3. Metabolic encephalopathy Improved. Most likely related to underlying infection and profound metabolic derangements. Continue supportive measures as noted above. 4. Troponin elevation/atrial fibrillation with RVR Likely secondary to demand ischemia in the setting #1. Atrial fibrillation resolved with amiodarone. Surface echocardiogram was unremarkable. 5. History of dysphagia and achalasia with increased aspiration risk The patient does have a known history of aspiration and did undergo PEG tube placement in 2019. However, at some point in time the PEG tube was removed and she was being maintained on a p[facility]. diet at [facility] facility. Speech therapy is currently following. Nevertheless, I do suspect that the patient will require a PEG tube once again for nutritional support. 6. History of dementia/paroxysmal atrial fibrillation/hypertension/hyperlipidemia/achalasia/diabetes mellitus Complicates care, management, recovery and prognosis. Continue to hold home antihypertensives. Continue sliding scale insulin coverage. Continue evaluation by speech therapy. TIME: 33 minutes of critical care time, independent of procedures, was spent addressing the patient's septic shock, acute kidney injury, hypernatremia, metabolic encephalopathy, troponin elevation, review of all data and collaboration with the care team. Subjective Subjective The patient was seen and examined at the bedside this morning. Events from the last 24 hours have been reviewed. The patient currently has a low-grade fever with a T-max overnight 100.1 ?F. She remains on Levophed at 4 mcg/min to maintain hemodynamic stability. The patient is currently documented to be overall net +7 L for the hospitalization. Her leukocytosis has resolved. Platelet count is dropped to 148,000. Sodium has normalized. Creatinine continues to improve and was noted this morning to be 1.3. Although the patient was noted to be in atrial fibrillation yesterday, she did convert to normal sinus rhythm in the afternoon after being started on amiodarone. Objective Data Objective Data The patient's most recent lab work, culture data and imaging studies have all been personally reviewed. Surface echocardiogram demonstrated normal LV size and function with an ejection fraction of 65%. Rapid coronavirus antigen testing was negative. Respiratory viral panel was negative. Strep and urine Legionella antigens were negative. Gram-negative rods have been isolated from both the patient's sputum and urine cultures. Vital Signs: Vital Signs Temp Pulse Resp BP Pulse Ox 99.7 F H 81 17 108/65 96 05/23/21 07:00 05/23/21 07:02 05/23/21 07:02 05/23/21 07:00 05/23/21 07:02 Oxygen Flow Rate (L/min) 2 Oxygen Delivery Method Nasal Cannula Weight: 69.7 kg Body Mass Index (BMI) 28.9 Intake & Output: Intake and Output for Last 24 Hours 05/21/21 05/22/21 05/23/21 23:59 23:59 23:59 Intake Total 4198.93 / 4203.63 4810.17 / 4819.57 1287.30 / 1287.30 Output Total 735 / 735 2240 / 2240 300 / 300 Balance 3463.93 / 3468.63 2570.17 / 2579.57 987.30 / 987.30 Lab / Micro Data Attestation: I reviewed the patient's lab results. Result Diagrams: 05/23/21 04:00 05/23/21 04:00 Labs: Laboratory Results - last 24 hr 05/22/21 10:55: POC Glucose 248 H 05/22/21 16:38: POC Glucose 236 H 05/22/21 21:10: POC Glucose 212 H 05/23/21 04:00: WBC 10.8, RBC 3.77 L, Hgb 10.7 L, Hct 34.5 L, MCV 91.5, MCH 28.4, MCHC 31.0 L, RDW Std Deviation 57.1 H, RDW Coeff of [place] 17.1 H, Plt Count 148 L, MPV 12.5 H, Immature Gran % (Auto) 0.300, Neut % (Auto) 75.0 H, Lymph % (Auto) 13.0 L, [place] % (Auto) 4.4, Eos % (Auto) 6.9 H, Baso % (Auto) 0.4, Absolute Neuts (auto) 8.1 H, Absolute Lymphs (auto) 1.40, Nucleated RBC % 0 05/23/21 04:00: Sodium 145, Potassium 3.6, Chloride 118 H, Carbon Dioxide 21.0, Anion Gap 6, BUN 42 H, Creatinine 1.33 H, Estim Creat Clear Calc 43.48, Est GFR (MDRD) Af Amer 51 L, Est GFR (MDRD) Non-Af 42 L, BUN/Creatinine Ratio 31.6 H, Glucose 190 H, Calcium 7.4 L 05/23/21 04:00: Random Vancomycin 13.8 05/23/21 06:16: POC Glucose 158 H Micro: Microbiology 05/21/21 16:25 Sputum, Expectorated/Coughed Gram Stain - Final 05/21/21 16:25 Sputum, Expectorated/Coughed Respiratory Culture - Preliminary GNR 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 Left ventricular systolic function is normal. The estimated ejection fraction is 65 %. There is moderate mitral annular calcification. Pulmonary artery systolic pressure is 26 mmHg. Ordering Physician: Reji Enciso Referring Physician: JENNIFER AKINS Performed By: Lacey Soni RDCS Physical Exam Const alert Constitutional Narrative: Frail and cachectic. Chronically ill in appearance. General Appearance: appears older than stated age Orientation / Consciousness: confused HEENT normocephalic and head/scalp atraumatic HEENT Narrative: Edentulous. Eyes PERRL and EOMs intact bilaterally Neck supple General: trachea midline and CVC in place Chest inspection of chest normal Resp Resp Narrative: Scant rhonchi with continued productive cough. Auscultation: diminished lung sounds Cardio regular rate and regular rhythm GI normal to inspection, nondistended, normoactive bowel sounds Extremity no clubbing, cyanosis or edema Skin no rashes or lesions noted Neuro moves all extremities and no focal motor deficits Psych Activity / Motor Behavior: restless Charges/Coding Procedures Hospitalists Procedures: 67472 Critial Care 1st Hr
--- NOTE | 2021-05-23 07:29 | PN.HOSP_ITS ---
Subjective Subjective Patient seen much more awake and interactive compared to previous day. Per nursing staff patient has been having diarrhea. Her WBC count and creatinine and sodium levels are improving however patient remains on Levophed Objective Data Objective Data Vital Signs: Vital Signs Temp Pulse Resp BP Pulse Ox 99.7 F H 81 17 108/65 96 05/23/21 07:00 05/23/21 07:02 05/23/21 07:02 05/23/21 07:00 05/23/21 07:02 Oxygen Flow Rate (L/min) 2 Oxygen Delivery Method Nasal Cannula Weight: 69.7 kg Body Mass Index (BMI) 28.9 Intake & Output: Intake and Output for Last 24 Hours 05/21/21 05/22/21 05/23/21 23:59 23:59 23:59 Intake Total 4198.93 / 4203.63 4810.17 / 4819.57 1287.30 / 1287.30 Output Total 735 / 735 2240 / 2240 300 / 300 Balance 3463.93 / 3468.63 2570.17 / 2579.57 987.30 / 987.30 Lab / Micro Data Result Diagrams: 05/23/21 04:00 05/23/21 04:00 Labs: Laboratory Results - last 24 hr 05/22/21 10:55: POC Glucose 248 H 05/22/21 16:38: POC Glucose 236 H 05/22/21 21:10: POC Glucose 212 H 05/23/21 04:00: WBC 10.8, RBC 3.77 L, Hgb 10.7 L, Hct 34.5 L, MCV 91.5, MCH 28.4, MCHC 31.0 L, RDW Std Deviation 57.1 H, RDW Coeff of [place] 17.1 H, Plt Count 148 L, MPV 12.5 H, Immature Gran % (Auto) 0.300, Neut % (Auto) 75.0 H, Lymph % (Auto) 13.0 L, [place] % (Auto) 4.4, Eos % (Auto) 6.9 H, Baso % (Auto) 0.4, Absolute Neuts (auto) 8.1 H, Absolute Lymphs (auto) 1.40, Nucleated RBC % 0 05/23/21 04:00: Sodium 145, Potassium 3.6, Chloride 118 H, Carbon Dioxide 21.0, Anion Gap 6, BUN 42 H, Creatinine 1.33 H, Estim Creat Clear Calc 43.48, Est GFR (MDRD) Af Amer 51 L, Est GFR (MDRD) Non-Af 42 L, BUN/Creatinine Ratio 31.6 H, Glucose 190 H, Calcium 7.4 L 05/23/21 04:00: Random Vancomycin 13.8 05/23/21 06:16: POC Glucose 158 H Micro: Microbiology 05/21/21 16:25 Sputum, Expectorated/Coughed Gram Stain - Final 05/21/21 16:25 Sputum, Expectorated/Coughed Respiratory Culture - Preliminary GNR lactose lvn home health 05/21/21 11:00 Urine, Clean Catch Urine Culture - Preliminary Gram negative shahriar 05/21/21 09:50 Nasal Secretion SARS-CoV-2 Antigen (Rapid) - Final 05/21/21 Unknown Mucosa - Nasopharyngeal Respiratory Panel (PCR) - Final 05/21/21 11:00 Urine Catheter - Hdez Legionella Antigen - Final 05/21/21 11:00 Urine Catheter - Hdez Streptococcus pneumoniae Antigen (M - Final 05/21/21 Unknown Mucosa - Nasopharyngeal Influenza Types A,B Direct FA ([place]) - Final Radiography Diagnostic Testing: Radiology Impression Echocardiogram 05/22/21 10:06 Interpretation Summary Normal LV size. Left ventricular systolic function is normal. The estimated ejection fraction is 65 %. There is moderate mitral annular calcification. Pulmonary artery systolic pressure is 26 mmHg. Ordering Physician: Reji Enciso Referring Physician: JENNIFER AKINS Performed By: Lacey Soni RDCS Physical Exam Narrative GENERAL: Awake responding to questions with simple answers HEENT: Atraumatic; EYES; Anicteric, Normal Conjunctiva NECK; supple, normal thyroid, RESPIRATORY: Diminished to auscultation CARDIOVASCULAR: Regular S1 S2, GI: soft, normoactive bowel sounds, : No Renal angle tenderness; EXTREMITIES: No edema, no clubbing, MUSCULOSKELETAL: no muscle wasting NEURO: No lateralizing signs SKIN: No Rash PSYCH; Flat affect Assessment & Plan Assessment/Plan (1) Chronic insomnia: (2) UTI (urinary tract infection): (3) Delirium: (4) Hypotension: (5) Infectious encephalopathy: (6) Acute prerenal azotemia: (7) Septic shock: (8) Pneumonia: (9) Acute kidney injury: (10) Acute UTI: (11) Acute hypernatremia: (12) Acute hypotension: PLAN: Patient is a 66-year-old resident of an [facility] brought in with altered mental status 1. Acute metabolic encephalopathy ?Multifactorial from sepsis, BRIAN, infectious etiology (pneumonia and UTI). Darlene ent has been admitted to the intensive care unit with treatment of conditions contributing to patient encephalopathy -05/22/2021. Patient level of sensorium improving 2. Septic shock ?Patient qSOFA on admission was 3. Has elevated WBC count MAP less than 65 creatinine greater than 2 respiratory rate greater than 20 heart rate greater than 90. Patient did not respond to initial fluid resuscitation in the ER. Continues IV fluid resuscitation continued in the ICU. Cultures were obtained in the ED. Patient started on broad-spectrum antibiotic therapy with Zosyn Levaquin and vancomycin with consultation placed to ID and corporate physical security supervisor -05/22/2021. Patient had to be started on Levophed in view of persistently low blood pressure which had failed to respond to fluids -05/23/2021; patient WBC count improving however patient still remains on pressors. Levophed 3. Pneumonia ?Patient is at significant risk for MDR's. Patient was therefore started on broad-spectrum antibiotic therapy to cover for both Pseudomonas as well as MRSA pending culture result -05/22/2021; cultures pending -05/23/2021; patient to undergo speech and swallow eval if patient fails patient may be a candidate for PEG tube placement consult has been placed to Dr. Young with general surgery for possible PEG tube placement should patient fail her speech and swallow eval 4. Complicated acute cystitis ?Patient is on broad-spectrum antibiotic therapy cultures sent - -05/22/2021; cultures pending 5. Acute kidney injury ?Possibly ATN patient is on aggressive IV fluid resuscitation with monitoring of electrolytes with consultation placed to nephrology Case discussed with Dr. Barrios - 05/22/2021; patient kidney function remains impaired with a creatinine of 2.83 -05/23/2021; creatinine down to 1.33 6. Mild hyperkalemia ?Secondary to #5 do expect improvement with treatment of patient's BRIAN -05/22/2021 potassium down to 4.1 7. Hypernatremia ?Secondary to severe dehydration and hypovolemia. Patient is on aggressive IV fluid resuscitation with saline initially with plans to switch to 0.45 saline with serial monitoring with BMP ordered every 4. Nephrology on case -05/22/2021 sodium level down to 152 chloride remains elevated at 127 ?05/23/2021; sodium level 145 8. Elevated troponin secondary to acute non-STEMI type II ?As a result of patient underlying infection and sepsis -05/22/2021 patientTroponin continues to rise 589 as of last evening. 2D echo ordered for regional wall motion abnormalities Assessment 9. Essential hypertension ?Patient antihypertensives on hold 10. Dyslipidemia ?Patient was previously on statin therapy currently not on the med/ 11. Paroxysmal A. fib ?Currently in sinus rhythm 12. Diabetes mellitus type 2 ?Patient is on Metformin this was held please on Accu-Cheks every 6 with insulin coverage 13. Achalasia ?Patient has history of previous esophageal food impaction 14. Dementia ?Per history supportive care 15. DVT prophylaxis ?SC heparin CODE STATUS; per documentation from shelter chart full code Charges/Coding Visit Charges Inpatient E&M: 72648 Subs Hosp L3
[2021-05-23] MEDS: Vancomycin IV 500 MG/100 ML BAG 100 MG IV ×2 (09:02→21:31)
--- NOTE | 2021-05-23 09:38 | PCM.PN.REN ---
Subjective Subjective Sitting up in bed, no complaints. Objective Data Objective Data Vital Signs: Vital Signs Temp Pulse Resp BP Pulse Ox 99.5 F H 87 17 95/72 97 05/23/21 08:00 05/23/21 09:15 05/23/21 09:00 05/23/21 09:15 05/23/21 09:00 Oxygen Flow Rate (L/min) 2 Oxygen Delivery Method Nasal Cannula Weight: 69.7 kg Body Mass Index (BMI) 28.9 Intake & Output: Intake and Output for Last 24 Hours 05/21/21 05/22/21 05/23/21 23:59 23:59 23:59 Intake Total 4198.93 / 4203.63 4810.17 / 4819.57 2096.05 / 2096.05 Output Total 735 / 735 2240 / 2240 300 / 300 Balance 3463.93 / 3468.63 2570.17 / 2579.57 1796.05 / 1796.05 Lab / Micro Data Result Diagrams: 05/23/21 04:00 05/23/21 04:00 Labs: Laboratory Results - last 24 hr 05/22/21 10:55: POC Glucose 248 H 05/22/21 16:38: POC Glucose 236 H 05/22/21 21:10: POC Glucose 212 H 05/23/21 04:00: WBC 10.8, RBC 3.77 L, Hgb 10.7 L, Hct 34.5 L, MCV 91.5, MCH 28.4, MCHC 31.0 L, RDW Std Deviation 57.1 H, RDW Coeff of [place] 17.1 H, Plt Count 148 L, MPV 12.5 H, Immature Gran % (Auto) 0.300, Neut % (Auto) 75.0 H, Lymph % (Auto) 13.0 L, [place] % (Auto) 4.4, Eos % (Auto) 6.9 H, Baso % (Auto) 0.4, Absolute Neuts (auto) 8.1 H, Absolute Lymphs (auto) 1.40, Nucleated RBC % 0 05/23/21 04:00: Sodium 145, Potassium 3.6, Chloride 118 H, Carbon Dioxide 21.0, Anion Gap 6, BUN 42 H, Creatinine 1.33 H, Estim Creat Clear Calc 43.48, Est GFR (MDRD) Af Amer 51 L, Est GFR (MDRD) Non-Af 42 L, BUN/Creatinine Ratio 31.6 H, Glucose 190 H, Calcium 7.4 L 05/23/21 04:00: Random Vancomycin 13.8 05/23/21 06:16: POC Glucose 158 H Micro: Microbiology 05/21/21 09:50 Nasal Secretion SARS-CoV-2 Antigen (Rapid) - Final 05/21/21 11:00 Urine, Clean Catch Urine Culture - Preliminary Gram negative shahriar 05/21/21 16:25 Sputum, Expectorated/Coughed Gram Stain - Final 05/21/21 16:25 Sputum, Expectorated/Coughed Respiratory Culture - Final Escherichia coli Coag Negative Staph GPC Poss Enterococcus sp 05/21/21 Unknown Mucosa - Nasopharyngeal Respiratory Panel (PCR) - Final 05/21/21 11:00 Urine Catheter - Taylor Legionella Antigen - Final 05/21/21 11:00 Urine Catheter - Taylor Streptococcus pneumoniae Antigen (M - Final 05/21/21 Unknown Mucosa - Nasopharyngeal Influenza Types A,B Direct FA ([place]) - Final Radiography Diagnostic Testing: Radiology Impression Echocardiogram 05/22/21 10:06 Interpretation Summary Normal LV size. Left ventricular systolic function is normal. The estimated ejection fraction is 65 %. There is moderate mitral annular calcification. Pulmonary artery systolic pressure is 26 mmHg. Ordering Physician: Reji Enciso Referring Physician: JENNIFER AKINS Performed By: Lacey Soni RDCS Physical Exam Narrative Alert and awake no obvious distress no pallor no icterus no JVD s1s2 no murmurs lungs clear abdomen soft, non-tender no edema taylor + Assessment & Plan Assessment/Plan (1) Acute hypernatremia: PLAN: -likely due to poor oral intake, lack of free water at the senior care. Sodium peaked 163, today at 145. She is n.p.o. Off IV fluids today. We will watch sodium trends. To have speech and swallow eval and if fails then possible PEG placement. Patient had PEG in past. (2) Acute kidney injury: PLAN: -Baseline creatinine was normal as of last year. She is a resident of senior care as per history. likely ischemic ATN. Urine output is good, ~2L yesterday. BUN and cr better. Creatinine peaked to 6.17 mg/dL on admission, today creatinine 1.33 mg/dL. -Blood pressures improving, currently on norepinephrine at 3mcg
--- NOTE | 2021-05-23 09:57 | PCM.PN.ID ---
Physical Exam Narrative More awake today, no fever, having some diarrhea per nursing Const no apparent distress Resp normal air movement and clear to auscultation bilaterally Cardio regular rate and regular rhythm GI soft to palpation, non-tender and non-distended Skin no rashes or lesions noted ID ID: Route of nutrition/ use of supplements: [] Nutritional Intake: [] IV Site: [] Hdez Catheter: [] Assessment & Plan Assessment/Plan (1) Septic shock: PLAN: On vanc/zosyn. MRSA pcr neg. Ucx with GNR. Sputum cx with GNR, CoNS, and enterococcus. Covid and resp pcr panel neg. BRIAN improving. Wbc and fever better. TTE showed no veg. Will increase zosyn to q8h. New diarrhea, will check cdiff. Will follow, d/w nursing (2) Acute kidney injury:
[2021-05-23] MEDS: Ziprasidone IM 20 MG/ML VIAL 10 MG IM ×2 (10:25→20:45)
[2021-05-23] MEDS: Menthol/Lanolin/Calamine/Znox 113 GM Tube 1 APPLIC TOPICAL ×2 (10:28→22:19)
[2021-05-23] MEDS: Nystatin Powder 15gm Bottle 1 APPLIC TOPICAL ×2 (10:29→22:18)
--- NOTE | 2021-05-23 10:49 | CON.PCM.SX_ITS ---
Assessment & Plan Assessment/Plan (1) Malnutrition: (2) Dysphagia: (3) Delirium: (4) Infectious encephalopathy: (5) Schizophrenia: PLAN: Currently patient is quite agitated. Per report from longterm she has previously pulled out her PEG tube multiple times in the past. Unsure exact timing of previous PEG as they state it was last removed June 2020 however on exam the scab looks to be much more recent. Did discuss with Dr. Lackey and plan to discuss with patient's POA -- if she does have 1 or her niece, that I would not currently recommend putting a PEG tube and as likely she would pull it out which would be emergency surgery if is not had a chance for the tract to develop well. Also unsure how agitated patient may or may not be at baseline with her schizophrenia/bipolar. We will try to see where patient previously had her PEG tube placed at. Not sure if she had it placed in IR facility if the T-fasteners would hold well enough to not be as concerned if she did pull it out. Addendum: Patient did last have her PEG tube replaced here by Dr. Fowler May 2020; however this was in a chronic tract and was not the initial placement. [facility] did state that when she had initially placed she was less agitated at that time. Talked to longterm patient last had her PEG in June 2020 but she does pick at scabs so that may be why it looks more recent at the PEG site. Also was able to get a hold of the patient's niece and had a long discussion via phone about overall goals for patient/quality of life?patient's niece did say that she does also have a history of MRDD. Patient does not have a POA typically the niece and her brother/nieces dad make the decisions. Currently patient is a full code did discussed with the niece what that meant and asked what the overall goal for her was --as currently she would not be a candidate for a PEG tube and likely everyone agrees that she will pull out a Dobbhoff tube. And without either she will either not be able to eat or likely aspirate which she has done previously/probably currently. Patient's niece stated that her and her dad will talk about CODE STATUS etc. Also discussed with Dr. Lackey and social work and the nurse. Pat Klein M.D. Pager: [phone] [facility] [address] [place] [address], Outpatient [place], [address] [place] [address] Office: [phone] HPI Consult Data Date of Consult: 05/23/21 HPI Narrative HPI Narrative: STEPHAN KING, is a 66 F who noted to the ICU due to sepsis/encephalopathy. Consulted by Dr. Lackey for PEG tube placement. Patient is ANO x1 unable to give history. Per reports from longterm patient's NG was DC'd June 2020 however patient does have a scab at that area of PEG tube. Nursing left a voicemail for the niece to call back. Currently patient is agitated she does have history of schizophrenia/bipolar. [facility] also states that she had previously pulled out her PEG before as well. [facility] Medical History (Updated 05/23/21 @ 10:[address] Pat Klein MD) Achalasia Acidosis Afib Anxiety Bipolar 1 disorder Delirium Dementia Diabetes mellitus, type II Hyperlipidemia Hypertension Insomnia Muscle weakness Psychosis Respiratory failure with hypoxia Schizophrenia Home Medications lisinopril 10 mg PO DAILY 12/01/13 [History Last Taken 06/08/20] aspirin 81 mg PO DAILY 05/18/19 [History Last Taken 06/08/20 09:36] metformin 500 mg PO BID 05/18/19 [History Last Taken 06/08/20 09:35] oxybutynin chloride 5 mg PO BID 05/18/19 [History Last Taken 06/06/20] albuterol sulfate 2 puff IH 4X/DAY 04/01/20 [History Last Taken 06/06/20] alum-mag hydroxide-simeth 30 ml PO Q4H PRN PRN 04/01/20 [History Last Taken Unknown] bisacodyl 10 mg RC DAILY PRN PRN 04/01/20 [History Last Taken Unknown] guaifenesin 10 ml PO Q4H PRN PRN 04/01/20 [History Last Taken Unknown] acetaminophen 650 mg PO Q4H PRN PRN 06/08/20 [History Last Taken 06/05/20] acetaminophen 650 mg IL Q4H PRN 05/21/21 [History Last Taken Unknown] aripiprazole [Abilify] 10 mg PO BID 05/21/21 [History Last Taken Unknown] aripiprazole lauroxil [Aristada] 882 mg IM QMONTH 05/21/21 [History Last Taken Unknown] benztropine 1 mg PO DAILY 05/21/21 [History Last Taken Unknown] clonazepam 1 mg PO TID 05/21/21 [History Last Taken Unknown] dextrose [Glucose Gel] 10 g PO Q15M PRN 05/21/21 [History Last Taken Unknown] diphenhydramine HCl [Benadryl] 25 mg PO Q6H PRN PRN 05/21/21 [History Last Taken Unknown] glucagon [Glucagon Emergency Kit] 1 mg IM PRN PRN 05/21/21 [History Last Taken Unknown] guaifenesin 400 mg PO Q4H PRN 05/21/21 [History Last Taken Unknown] lamotrigine 25 mg PO DAILY 05/21/21 [History Last Taken Unknown] magnesium hydroxide [Milk of Magnesia] 30 ml PO DAILY PRN 05/21/21 [History Last Taken Unknown] melatonin 5 mg PO QHS 05/21/21 [History Last Taken Unknown] mometasone-formoterol [Dulera] 1 puff INHALATION DAILY 05/21/21 [History Last Taken Unknown] nystatin 1 applic TOPICAL BID 05/21/21 [History Last Taken Unknown] quetiapine 100 mg PO DAILY 05/21/21 [History Last Taken Unknown] quetiapine 200 mg PO QHS 05/21/21 [History Last Taken Unknown] sodium phosphates [Fleet Enema] 118 ml IL DAILY PRN 05/21/21 [History Last Taken Unknown] Allergy/AdvReac Type Severity Reaction Status Date / Time No Known Allergies Allergy Verified 05/21/21 09:22 Family History unable to obtain Surgical History unable to obtain Social History Smoking Status: Smoker, status unknown ROS Review of Systems ROS Unobtainable: due to mental status Physical Exam Const Constitutional Narrative: Oriented x1 to self, patient appears agitated Exam Limitations: altered mental status HEENT normocephalic Eyes conjunctivae normal Neck Neck Narrative: Right side neck is dressed due to attempt for central line,which is placed in the right subclavian currently Resp normal respiratory effort Cardio Rate: regular rate GI soft to palpation and non-distended GI Narrative: Almost completely healed wound/scab in the left upper quadrant likely previous PEG site. Palpation: Negative for tender Extremity General Extremity: Negative for edema Skin No no rashes or lesions noted Psych Attitude: agitated Activity / Motor Behavior: restless Lab / Micro Data Result Diagrams: 05/23/21 04:00 05/23/21 04:00 Labs: Laboratory Results - last 24 hr 05/22/21 10:55: POC Glucose 248 H 05/22/21 16:38: POC Glucose 236 H 05/22/21 21:10: POC Glucose 212 H 05/23/21 04:00: WBC 10.8, RBC 3.77 L, Hgb 10.7 L, Hct 34.5 L, MCV 91.5, MCH 28.4, MCHC 31.0 L, RDW Std Deviation 57.1 H, RDW Coeff of Jesica 17.1 H, Plt Count 148 L, MPV 12.5 H, Immature Gran % (Auto) 0.300, Neut % (Auto) 75.0 H, Lymph % (Auto) 13.0 L, Geary % (Auto) 4.4, Eos % (Auto) 6.9 H, Baso % (Auto) 0.4, Absolute Neuts (auto) 8.1 H, Absolute Lymphs (auto) 1.40, Nucleated RBC % 0 05/23/21 04:00: Sodium 145, Potassium 3.6, Chloride 118 H, Carbon Dioxide 21.0, Anion Gap 6, BUN 42 H, Creatinine 1.33 H, Estim Creat Clear Calc 43.48, Est GFR (MDRD) Af Amer 51 L, Est GFR (MDRD) Non-Af 42 L, BUN/Creatinine Ratio 31.6 H, Glucose 190 H, Calcium 7.4 L 05/23/21 04:00: Random Vancomycin 13.8 05/23/21 06:16: POC Glucose 158 H Micro: Microbiology 05/21/21 09:50 Nasal Secretion SARS-CoV-2 Antigen (Rapid) - Final 05/21/21 11:00 Urine, Clean Catch Urine Culture - Preliminary Gram negative shahriar 05/21/21 16:25 Sputum, Expectorated/Coughed Gram Stain - Final 05/21/21 16:25 Sputum, Expectorated/Coughed Respiratory Culture - Final Escherichia coli Coag Negative Staph GPC Poss Enterococcus sp Radiology Impression Echocardiogram 05/22/21 10:06 Interpretation Summary Normal LV size. Left ventricular systolic function is normal. The estimated ejection fraction is 65 %. There is moderate mitral annular calcification. Pulmonary artery systolic pressure is 26 mmHg. Ordering Physician: Reji Enciso Referring Physician: JENNIFER AKINS Performed By: Lacey Soni RDCS Charges/Coding Visit Charges Inpatient E&M: 89783 Init Hosp L3
--- NOTE | 2021-05-23 11:00 | CASEMGMT ---
Social Work SARA spoke with Juarez in admissions and Robert in nursing at [facility] and inquired about health care POA. Both Red and nurse state pt does not have a health care POA. Pt niece Cheryl Mendoza is the first contact and pt's brother (Cheryl's father) is second contact. Pt is a full code. SARA spoke with Robert regarding PEG tube. Robert reports pt is currently on the dementia unit, does have behavioral issues and PEG tube is irritating to her and she has pulled it out multiple times. Per Robert, when PEG tube what pulled out June 26, 2020 it was decided to leave it out as pt had been working with speech therapy and was tolerating a diet with thickened liquids. SARA inquired if [facility] could accept pt with a DOBHOFF and Robert indicated that they could. Dr. Klein updated on above conversation. PARTH Martínez
[2021-05-23 11:51] LABS: Bedside Glucose 122 mg/dL (74-106)
--- NOTE | 2021-05-23 13:22 | PCM.RX.CS ---
Consult Pharmacy has been consulted to manage selected antiobiotic: Vancomycin Type of Consult: Follow-up Suspected Infection: Sepsis Prior Doses of Antibiotics Received/Current Regimen: Vancomycin 1000mg given 05/15/2021 vancomycin 1000mg given 05/22/2021 Labs: Sodium 145 mmol/L (136-145) 05/23/21 04:00 Potassium 3.6 mmol/L (3.5-5.1) 05/23/21 04:00 Chloride 118 mmol/L (98-107) H 05/23/21 04:00 Carbon Dioxide 21.0 mmol/L (21.0-32.0) 05/23/21 04:00 Anion Gap 6 (5-15) 05/23/21 04:00 BUN 42 mg/dL (7-18) H 05/23/21 04:00 Creatinine 1.33 mg/dL (0.55-1.02) H 05/23/21 04:00 Est GFR (MDRD) Af Amer 51 mL/min (>60) L 05/23/21 04:00 Est GFR (MDRD) Non-Af 42 mL/min (>60) L 05/23/21 04:00 BUN/Creatinine Ratio 31.6 RATIO (10-20) H 05/23/21 04:00 Glucose 190 mg/dL (74-106) H 05/23/21 04:00 Random Vancomycin 13.8 ug/mL (0.0-15.0) 05/23/21 04:00 Microbiology: Microbiology 05/21/21 09:20 Blood Culture (Wb) - Right Hand Blood Culture - Preliminary No growth in 48 hours. 05/21/21 09:20 Blood Culture (Wb) - Left Hand Blood Culture - Preliminary No growth in 48 hours. 05/21/21 09:50 Nasal Secretion SARS-CoV-2 Antigen (Rapid) - Final 05/21/21 11:00 Urine, Clean Catch Urine Culture - Preliminary Gram negative shahriar 05/21/21 16:25 Sputum, Expectorated/Coughed Gram Stain - Final 05/21/21 16:25 Sputum, Expectorated/Coughed Respiratory Culture - Final Escherichia coli Coag Negative Staph GPC Poss Enterococcus sp 05/21/21 Unknown Mucosa - Nasopharyngeal Respiratory Panel (PCR) - Final 05/21/21 11:00 Urine Catheter - Hdez Legionella Antigen - Final 05/21/21 11:00 Urine Catheter - Hdez Streptococcus pneumoniae Antigen (M - Final 05/21/21 Unknown Mucosa - Nasopharyngeal Influenza Types A,B Direct FA ([place]) - Final Weight used for dosin kg Estimated Creatinine Clearance: 42 Goal Trough: 15-20 mcg/mL Pharmacy Plan for Drug Dosing: Vancomycin 500mg every 12 hours. trough level to be drawn 05/24/21 @ 2029 Pharmacy Service will continue to monitor and adjust dosing as required. Follow-Up Labs: Trough Vancomycin Labs to be done on [date and time ordered]: 05/24/2021 @ 2029
[2021-05-23 17:36] LABS: Bedside Glucose 101 mg/dL (74-106)
[2021-05-23 22:06] LABS: Bedside Glucose 80 mg/dL (74-106)
[2021-05-23] MEDS: 0.9% Saline Lock 10 ML Syringe IV (22:19)
[2021-05-24] VITALS (37 sets, daily range): BP systolic 100–167; BP diastolic 54–103; PULSE 56–97; RESP 16–32; TEMP 36.6–37.3; O2SAT 93–99
[2021-05-24 04:21] LABS: Absolute Lymphocyte Count 0.65 X10^3/uL (0.83-4.51); Absolute Neutrophil Count 2.8 X10^3/uL (2.0-7.7); Basophil# 0.01 X10^3/uL; Basophil% 0.2 % (0-1); Eosinophil# 0.46 X10^3/uL; Hematocrit 28.9 % (37-47); Hemoglobin 9.1 g/dL (12.0-15.0); Lymphocyte # 0.65 X10^3/ul (0.83-4.51); Lymphocyte % 15.6 % (19-41); Mean Corp Hgb Conc 31.5 g/dL (32-36); Mean Corpuscular Hgb 27.7 pg (27.0-32.0); Mean Corpuscular Volume 87.8 fL (81-99); Mean Platelet Vol. 12.4 fl (6.2-12.0); Monocyte# 0.25 X10^3/uL; NRBC Flagged by Analyzer 0 % (0-5); POSITIVE COUNT YES; Platelet Count 93 K/mm3 (150-450); RBC Distribution Width CV 16.9 % (11.6-14.6); RBC Distribution Width SD 53.8 fl (35.1-43.9); Red Blood Count 3.29 M/mm3 (4.2-5.4); White Blood Count 4.2 K/mm3 (4.4-11.0)
[2021-05-24 04:23] LABS: Differential Indicated SCAN CRITERIA MET
[2021-05-24 04:34] LABS: Anion Gap 3 (5-15); BUN 23 mg/dL (7-18); BUN/Creat Ratio 28.2 RATIO (10-20); Calcium,Total 7.4 mg/dL (8.5-10.1); Chloride 123 mmol/L (98-107); Creatinine, Serum 0.82 mg/dL (0.55-1.02); EST Glomerular Filtration Rate 74 mL/min (>60); Est Glom Filt Rate - Afr Amer 90 mL/min (>60); Estimated Creatinine Clearance 73.25 ml/min; Glucose 91 mg/dL (74-106); Potassium 3.5 mmol/L (3.5-5.1); Sodium Level 150 mmol/L (136-145)
[2021-05-24 05:14] LABS: Differential Comment SCANNED
[2021-05-24] MEDS: Heparin Injection (Vial) 5,000 UNIT/ML VIAL 5000 UNIT SC ×3 (06:24→21:23)
[2021-05-24 06:31] LABS: Bedside Glucose 76 mg/dL (74-106)
--- NOTE | 2021-05-24 06:35 | PCM.PN.INT ---
Assessment & Plan Assessment/Plan (1) Septic shock: PLAN: RECOMMENDATIONS: 1. Continue empiric antimicrobials per ID recommendations. 2. Restart D5W. 3. Clarify goals of care with the patient's family, including plans for nutritional support. 4. Continue appropriate ICU prophylaxis. 5. If the patient remains hemodynamically stable, she can be transferred out of the medical intensive care unit. IMPRESSIONS: 1. Gram-negative septic shock Improved. The patient presented with septic shock secondary to gram-negative pneumonia and urinary tract infection. She did have evidence of sepsis induced organ dysfunction as manifested by encephalopathy, acute kidney injury and fluid refractory hypotension, necessitating vasopressor support. She does have a history of prior hospital admissions for sepsis along with a history of achalasia putting her at high risk for aspiration. The patient did receive appropriate IV fluid hydration and ultimately required Levophed to maintain hemodynamic stability. Plan to continue antimicrobials per ID recommendations. The patient has been weaned from vasopressor support at this time and remains hemodynamically stable. 2. Acute kidney injury/hypernatremia Improved. Most likely prerenal in etiology and related to free water loss in the setting of septic shock. Continue current supportive measures. Nephrology is following to assist with medical management. Restart D5W this morning. 3. Metabolic encephalopathy Improved. Most likely related to underlying infection and profound metabolic derangements. Continue supportive measures as noted above. 4. Troponin elevation/atrial fibrillation with RVR Likely secondary to demand ischemia in the setting #1. Atrial fibrillation resolved with amiodarone. Surface echocardiogram was unremarkable. 5. History of dysphagia and achalasia with increased aspiration risk The patient does have a known history of aspiration and did undergo PEG tube placement in 2019. However, at some point in time the PEG tube was removed and she was being maintained on a p[facility]. diet at her [facility]. Speech therapy is currently following. Consider modified barium swallow. 6. History of dementia/paroxysmal atrial fibrillation/hypertension/hyperlipidemia/achalasia/diabetes mellitus Complicates care, management, recovery and prognosis. Continue to hold home antihypertensives. Continue sliding scale insulin coverage. Continue evaluation by speech therapy. This note was generated with [employer] dictation software. It may contain incorrect words, spelling, and punctuation that were not noted in checking the note before signing. Subjective Subjective The patient was seen and examined at the bedside this morning. Events from the last 24 hours have been reviewed. The patient is currently afebrile, hemodynamically stable and maintaining appropriate oxygen saturations on room air. The patient was weaned off of Levophed early this morning at 0400. She remains in normal sinus rhythm. The patient did become agitated overnight, for which she received Geodon and Ativan. She is currently documented to be overall net +7 L for the hospitalization. General surgery did evaluate the patient yesterday. She was not felt to be a candidate for surgical PEG tube placement and was similarly not a good candidate for Dobbhoff feeding tube. Hemoglobin this morning was noted to be 9.1 g/dL with a platelet count of 93,000. Sodium increased to 150 with a chloride of 123. Objective Data Objective Data The patient's most recent lab work, culture data and imaging studies have all been personally reviewed. Surface echocardiogram demonstrated normal LV size and function with an ejection fraction of 65%. Rapid coronavirus antigen testing was negative. Respiratory viral panel was negative. Strep and urine Legionella antigens were negative. Gram-negative rods have been isolated from both the patient's sputum and urine cultures. Vital Signs: Vital Signs Temp Pulse Resp BP Pulse Ox 98.8 F 82 16 120/97 H 96 05/24/21 05:00 05/24/21 05:00 05/24/21 05:00 05/24/21 05:00 05/24/21 05:00 Oxygen Flow Rate (L/min) 2 Oxygen Delivery Method Room Air Weight: 69.7 kg Body Mass Index (BMI) 28.9 Intake & Output: Intake and Output for Last 24 Hours 05/22/21 05/23/21 05/24/21 23:59 23:59 23:59 Intake Total 4810.17 / 4819.57 2574.64 / 2584.04 81.98 / 81.98 Output Total 2240 / 2240 1300 / 1625 325 / 325 Balance 2570.17 / 2579.57 1274.64 / 959.04 -243.02 / -243.02 Lab / Micro Data Attestation: I reviewed the patient's lab results. Result Diagrams: 05/24/21 04:05 05/24/21 04:05 Labs: Laboratory Results - last 24 hr 05/23/21 11:36: POC Glucose 122 H 05/23/21 17:28: POC Glucose 101 05/23/21 22:02: POC Glucose 80 05/24/21 04:05: WBC 4.2 L, RBC 3.29 L, Hgb 9.1 L, Hct 28.9 L, MCV 87.8, MCH 27.7, MCHC 31.5 L, RDW Std Deviation 53.8 H, RDW Coeff of Jesica 16.9 H, Plt Count 93 L, MPV 12.4 H, Immature Gran % (Auto) 0.200, Neut % (Auto) 67.0, Lymph % (Auto) 15.6 L, Crosby % (Auto) 6.0, Eos % (Auto) 11.0 H, Baso % (Auto) 0.2, Absolute Neuts (auto) 2.8, Absolute Lymphs (auto) 0.65 L, Nucleated RBC % 0, Differential Comment SCANNED 05/24/21 04:05: Sodium 150 H, Potassium 3.5, Chloride 123 H, Carbon Dioxide 24.0, Anion Gap 3 L, BUN 23 H, Creatinine 0.82, Estim Creat Clear Calc 73.25, Est GFR (MDRD) Af Amer 90, Est GFR (MDRD) Non-Af 74, BUN/Creatinine Ratio 28.2 H, Glucose 91, Calcium 7.4 L 05/24/21 06:23: POC Glucose 76 Micro: Microbiology 05/23/21 10:00 Stool C. difficile DNA Amplification - Final 05/21/21 09:20 Blood Culture (Wb) - Right Hand Blood Culture - Preliminary No growth in 48 hours. 05/21/21 09:20 Blood Culture (Wb) - Left Hand Blood Culture - Preliminary No growth in 48 hours. 05/21/21 09:50 Nasal Secretion SARS-CoV-2 Antigen (Rapid) - Final 05/21/21 11:00 Urine, Clean Catch Urine Culture - Preliminary Gram negative shahriar 05/21/21 16:25 Sputum, Expectorated/Coughed Gram Stain - Final 05/21/21 16:25 Sputum, Expectorated/Coughed Respiratory Culture - Final Escherichia coli Coag Negative Staph GPC Poss Enterococcus sp 05/21/21 Unknown Mucosa - Nasopharyngeal Respiratory Panel (PCR) - Final 05/21/21 11:00 Urine Catheter - Hdez Legionella Antigen - Final 05/21/21 11:00 Urine Catheter - Hdez Streptococcus pneumoniae Antigen (M - Final 05/21/21 Unknown Mucosa - Nasopharyngeal Influenza Types A,B Direct FA ([facility]) - Final Physical Exam Const alert Constitutional Narrative: Frail and cachectic. Chronically ill in appearance. General Appearance: appears older than stated age Orientation / Consciousness: confused HEENT normocephalic and head/scalp atraumatic HEENT Narrative: Edentulous. Eyes PERRL and EOMs intact bilaterally Neck supple General: trachea midline and CVC in place Chest inspection of chest normal Resp Resp Narrative: Persistent moist cough. Effort and Inspection: Negative for labored Auscultation: diminished lung sounds Cardio regular rate and regular rhythm GI normal to inspection, nondistended, normoactive bowel sounds Extremity no clubbing, cyanosis or edema Skin no rashes or lesions noted Neuro moves all extremities and no focal motor deficits Psych Activity / Motor Behavior: restless Charges/Coding Visit Charges Inpatient E&M: 42379 Subs Hosp L3
[2021-05-24] MEDS: Budesonide Respules 0.5 MG/2 ML AMPUL.NEB. INHALATION ×2 (06:39→19:35)
[2021-05-24] MEDS: Albuterol 2.5 MG/3 ML VIAL.NEB. INHALATION ×3 (06:39→19:35)
--- NOTE | 2021-05-24 07:18 | PCM.PN.HOSP ---
Subjective Subjective Consult was placed to general surgery and case discussed with Dr. Young for possible assessment for PEG tube placement. It was felt patient was not a good candidate for either PEG tube or Dobbhoff. Plan is to have a family discussion to discuss CODE STATUS and goals of care. Patient urine cultures so far positive for E. coli. Sputum cultures positive for E. coli, coagulase-negative staph and GPC possible Enterococcus species.. Blood cultures so far negative to date -Plan is for patient to undergo repeat speech and swallow eval Objective Data Objective Data Vital Signs: Vital Signs Temp Pulse Resp BP Pulse Ox 98.8 F 82 25 H 120/97 H 98 05/24/21 05:00 05/24/21 06:40 05/24/21 06:40 05/24/21 05:00 05/24/21 06:40 Oxygen Flow Rate (L/min) 2 Oxygen Delivery Method Room Air Weight: 67 kg Body Mass Index (BMI) 28.9 Intake & Output: Intake and Output for Last 24 Hours 05/22/21 05/23/21 05/24/21 23:59 23:59 23:59 Intake Total 4810.17 / 4819.57 2574.64 / 2584.04 81.98 / 81.98 Output Total 2240 / 2240 1300 / 1625 600 / 600 Balance 2570.17 / 2579.57 1274.64 / 959.04 -518.02 / -518.02 Lab / Micro Data Result Diagrams: 05/24/21 04:05 05/24/21 04:05 Labs: Laboratory Results - last 24 hr 05/23/21 11:36: POC Glucose 122 H 05/23/21 17:28: POC Glucose 101 05/23/21 22:02: POC Glucose 80 05/24/21 04:05: WBC 4.2 L, RBC 3.29 L, Hgb 9.1 L, Hct 28.9 L, MCV 87.8, MCH 27.7, MCHC 31.5 L, RDW Std Deviation 53.8 H, RDW Coeff of Jes[place] 16.9 H, Plt Count 93 L, MPV 12.4 H, Immature Gran % (Auto) 0.200, Neut % (Auto) 67.0, Lymph % (Auto) 15.6 L, [place] % (Auto) 6.0, Eos % (Auto) 11.0 H, Baso % (Auto) 0.2, Absolute Neuts (auto) 2.8, Absolute Lymphs (auto) 0.65 L, Nucleated RBC % 0, Differential Comment SCANNED 05/24/21 04:05: Sodium 150 H, Potassium 3.5, Chloride 123 H, Carbon Dioxide 24.0, Anion Gap 3 L, BUN 23 H, Creatinine 0.82, Estim Creat Clear Calc 73.25, Est GFR (MDRD) Af Amer 90, Est GFR (MDRD) Non-Af 74, BUN/Creatinine Ratio 28.2 H, Glucose 91, Calcium 7.4 L 05/24/21 06:23: POC Glucose 76 Micro: Microbiology 05/23/21 10:00 Stool C. difficile DNA Amplification - Final 05/21/21 09:20 Blood Culture (Wb) - Right Hand Blood Culture - Preliminary No growth in 48 hours. 05/21/21 09:20 Blood Culture (Wb) - Left Hand Blood Culture - Preliminary No growth in 48 hours. 05/21/21 09:50 Nasal Secretion SARS-CoV-2 Antigen (Rapid) - Final 05/21/21 11:00 Urine, Clean Catch Urine Culture - Preliminary Gram negative shahriar 05/21/21 16:25 Sputum, Expectorated/Coughed Gram Stain - Final 05/21/21 16:25 Sputum, Expectorated/Coughed Respiratory Culture - Final Escherichia coli Coag Negative Staph GPC Poss Enterococcus sp 05/21/21 Unknown Mucosa - Nasopharyngeal Respiratory Panel (PCR) - Final 05/21/21 11:00 Urine Catheter - Hdez Legionella Antigen - Final 05/21/21 11:00 Urine Catheter - Hdez Streptococcus pneumoniae Antigen (M - Final 05/21/21 Unknown Mucosa - Nasopharyngeal Influenza Types A,B Direct FA ([place]) - Final Physical Exam Narrative GENERAL: Patient much more interactive compared to previous day HEENT: Atraumatic; EYES; Anicteric, Normal Conjunctiva NECK; supple, normal thyroid, RESPIRATORY: Diminished to auscultation CARDIOVASCULAR: Regular S1 S2, GI: soft, normoactive bowel sounds, : No Renal angle tenderness; EXTREMITIES: No edema, no clubbing, MUSCULOSKELETAL: no muscle wasting NEURO: No lateralizing signs SKIN: No Rash PSYCH; Flat affect Assessment & Plan Assessment/Plan (1) Chronic insomnia: (2) UTI (urinary tract infection): (3) Delirium: (4) Hypotension: (5) Infectious encephalopathy: (6) Acute prerenal azotemia: (7) Septic shock: (8) Pneumonia: (9) Acute kidney injury: (10) Acute UTI: (11) Acute hypernatremia: (12) Acute hypotension: PLAN: Patient is a 66-year-old resident of an COUNTS INCLUDE 234 BEDS AT THE [facility] brought in with altered mental status 1. Acute metabolic encephalopathy ?Multifactorial from sepsis, BRIAN, infectious etiology (pneumonia and UTI). Patient has been admitted to the intensive care unit with treatment of conditions contributing to patient encephalopathy -05/22/2021. Patient level of sensorium improving 2. Septic shock ?Patient qSOFA on admission was 3. Has elevated WBC count MAP less than 65 creatinine greater than 2 respiratory rate greater than 20 heart rate greater than 90. Patient did not respond to initial fluid resuscitation in the ER. Continues IV fluid resuscitation continued in the ICU. Cultures were obtained in the ED. Patient started on broad-spectrum antibiotic therapy with Zosyn Levaquin and vancomycin with consultation placed to ID and saddle tree stitcher -05/22/2021. Patient had to be started on Levophed in view of persistently low blood pressure which had failed to respond to fluids -05/23/2021; patient WBC count improving however patient still remains on pressors. Levophed 05/24/2021; patient urine cultures so far positive for E. coli. Sputum cultures positive for E. coli, coagulase-negative staph and GPC possible Enterococcus species.. Blood cultures so far negative to date. Subsequent antibiotic therapy deferred to ID 3. Pneumonia ?Patient is at significant risk for MDR's. Patient was therefore started on broad-spectrum antibiotic therapy to cover for both Pseudomonas as well as MRSA pending culture result -05/22/2021; cultures pending -05/23/2021; patient to undergo speech and swallow eval if patient fails patient may be a candidate for PEG tube placement consult has been placed to Dr. Young with general surgery for possible PEG tube placement should patient fail her speech and swallow eval -05/24/2021 Consult was placed to general surgery and case discussed with Dr. Young for possible assessment for PEG tube placement. It was felt patient was not a good candidate for either PEG tube or Dobbhoff. Plan is to have a family discussion to discuss CODE STATUS and goals of care. 4. Complicated acute cystitis ?Patient is on broad-spectrum antibiotic therapy cultures sent - -05/22/2021; cultures pending 5. Acute kidney injury ?Possibly ATN patient is on aggressive IV fluid resuscitation with monitoring of electrolytes with consultation placed to nephrology Case discussed with Dr. Barrios - 05/22/2021; patient kidney function remains impaired with a creatinine of 2.83 -05/23/2021; creatinine down to 1.33 6. Mild hyperkalemia ?Secondary to #5 do expect improvement with treatment of patient's BRIAN -05/22/2021 potassium down to 4.1 7. Hypernatremia ?Secondary to severe dehydration and hypovolemia. Patient is on aggressive IV fluid resuscitation with saline initially with plans to switch to 0.45 saline with serial monitoring with BMP ordered every 4. Nephrology on case -05/22/2021 sodium level down to 152 chloride remains elevated at 127 ?05/23/2021; sodium level 145 8. Elevated troponin secondary to acute non-STEMI type II ?As a result of patient underlying infection and sepsis -05/22/2021 patientTroponin continues to rise 589 as of last evening. 2D echo ordered for regional wall motion abnormalities Assessment 9. Essential hypertension ?Patient antihypertensives on hold 10. Dyslipidemia ?Patient was previously on statin therapy currently not on the med/ 11. Paroxysmal A. fib ?Currently in sinus rhythm 12. Diabetes mellitus type 2 ?Patient is on Metformin this was held please on Accu-Cheks every 6 with insulin coverage 13. Achalasia ?Patient has history of previous esophageal food impaction 14. Dementia ?Per history supportive care 15. DVT prophylaxis ?SC heparin 16. Anemia - Secondary to chronic disorder monitoring H&H and transfuse if patient becomes symptomatic or hemoglobin falls below 7 CODE STATUS; per documentation from halfway chart full code Charges/Coding Visit Charges Inpatient E&M: 39532 Subs Hosp L3
[2021-05-24] MEDS: Vancomycin IV 500 MG/100 ML BAG 100 MG IV ×2 (09:19→21:35)
[2021-05-24] MEDS: Nystatin Powder 15gm Bottle 1 APPLIC TOPICAL ×2 (09:19→21:15)
[2021-05-24] MEDS: Menthol/Lanolin/Calamine/Znox 113 GM Tube 1 APPLIC TOPICAL ×2 (09:20→21:15)
--- NOTE | 2021-05-24 09:41 | PN.RENAL_ITS ---
Subjective Subjective Sitting up in bed, alert to name. No overnight events. Off pressors. Objective Data Objective Data Vital Signs: Vital Signs Temp Pulse Resp BP Pulse Ox 98.1 F 83 23 H 147/103 H 94 05/24/21 08:00 05/24/21 09:00 05/24/21 09:00 05/24/21 09:00 05/24/21 09:00 Oxygen Flow Rate (L/min) 2 Oxygen Delivery Method Room Air Weight: 67 kg Body Mass Index (BMI) 28.9 Intake & Output: Intake and Output for Last 24 Hours 05/22/21 05/23/21 05/24/21 23:59 23:59 23:59 Intake Total 4810.17 / 4819.57 2574.64 / 2584.04 81.98 / 81.98 Output Total 2240 / 2240 1300 / 1625 600 / 600 Balance 2570.17 / 2579.57 1274.64 / 959.04 -518.02 / -518.02 Lab / Micro Data Result Diagrams: 05/24/21 04:05 05/24/21 04:05 Labs: Laboratory Results - last 24 hr 05/23/21 11:36: POC Glucose 122 H 05/23/21 17:28: POC Glucose 101 05/23/21 22:02: POC Glucose 80 05/24/21 04:05: WBC 4.2 L, RBC 3.29 L, Hgb 9.1 L, Hct 28.9 L, MCV 87.8, MCH 27.7, MCHC 31.5 L, RDW Std Deviation 53.8 H, RDW Coeff of Jes[place] 16.9 H, Plt Count 93 L, MPV 12.4 H, Immature Gran % (Auto) 0.200, Neut % (Auto) 67.0, Lymph % (Auto) 15.6 L, [place] % (Auto) 6.0, Eos % (Auto) 11.0 H, Baso % (Auto) 0.2, Absolute Neuts (auto) 2.8, Absolute Lymphs (auto) 0.65 L, Nucleated RBC % 0, Differential Comment SCANNED 05/24/21 04:05: Sodium 150 H, Potassium 3.5, Chloride 123 H, Carbon Dioxide 24.0, Anion Gap 3 L, BUN 23 H, Creatinine 0.82, Estim Creat Clear Calc 73.25, Est GFR (MDRD) Af Amer 90, Est GFR (MDRD) Non-Af 74, BUN/Creatinine Ratio 28.2 H , Glucose 91, Calcium 7.4 L 05/24/21 06:23: POC Glucose 76 Micro: Microbiology 05/21/21 11:00 Urine, Clean Catch Urine Culture - Final Escherichia coli 05/23/21 10:00 Stool C. difficile DNA Amplification - Final 05/21/21 09:20 Blood Culture (Wb) - Right Hand Blood Culture - Preliminary No growth in 48 hours. 05/21/21 09:20 Blood Culture (Wb) - Left Hand Blood Culture - Preliminary No growth in 48 hours. 05/21/21 09:50 Nasal Secretion SARS-CoV-2 Antigen (Rapid) - Final 05/21/21 16:25 Sputum, Expectorated/Coughed Gram Stain - Final 05/21/21 16:25 Sputum, Expectorated/Coughed Respiratory Culture - Final Escherichia coli Coag Negative Staph GPC Poss Enterococcus sp 05/21/21 Unknown Mucosa - Nasopharyngeal Respiratory Panel (PCR) - Final 05/21/21 11:00 Urine Catheter - Taylor Legionella Antigen - Final 05/21/21 11:00 Urine Catheter - Taylor Streptococcus pneumoniae Antigen (M - Final 05/21/21 Unknown Mucosa - Nasopharyngeal Influenza Types A,B Direct FA ([place]) - Final Physical Exam Narrative Alert and awake no obvious distress no pallor no icterus no JVD s1s2 no murmurs lungs clear abdomen soft, non-tender no edema taylor + Assessment & Plan Assessment/Plan (1) Acute hypernatremia: PLAN: -likely due to poor oral intake, lack of free water. Sodium peaked 163 improved to 145 but back up today to 150. She is n.p.o. Back on IVF, D5 at 75ml. We will monitor sodium trends. Patient failed swallow eval and is to have modified barium swallow. Patient had PEG in past. Plan is for family discussion to discuss goals of care and code status. (2) Acute kidney injury: PLAN: -Baseline creatinine was normal as of last year. She is a resident of residential as per history. likely ischemic ATN. Patient is nonoliguric. BUN and cr better. Creatinine peaked to 6.17 mg/dL on admission, today creatinine 0.82 mg/dL. -Blood pressures improved, off pressors
--- NOTE | 2021-05-24 09:45 | CASEMGMT ---
Social Work SW attended ICU rounds. Pt not ready for discharge today. Updates faxed to [facility] and left informing pt will not d/c today. Plan: [facility], intermediate care. When medically ready. PARTH Martínez
[2021-05-24] MEDS: CHLORHEXIDINE GLUC 2% CLOTH 1 EACH TOWELETTE TOPICAL (10:04)
[2021-05-24 11:00] LABS: Bedside Glucose 99 mg/dL (74-106)
[2021-05-24] MEDS: LORazepam 2 MG/ML Syringe 1 MG IV (12:04)
--- NOTE | 2021-05-24 12:37 | PCM.PN.ID ---
Physical Exam Narrative Off pressors, no fever, in icu Const Orientation / Consciousness: confused and lethargic Resp normal air movement and clear to auscultation bilaterally Cardio regular rate and regular rhythm GI soft to palpation, non-tender and non-distended Skin no rashes or lesions noted ID ID: Route of nutrition/ use of supplements: [] Nutritional Intake: [] IV Site: [] Hdez Catheter: [] Assessment & Plan Assessment/Plan (1) Septic shock: PLAN: On vanc/zosyn. MRSA pcr neg. Ucx with ecoli. Sputum cx with ecoli, CoNS, and enterococcus. Covid and resp pcr panel neg. BRIAN improving. Wbc and fever better. TTE showed no veg. Cdiff neg. Now off pressors. Will follow (2) Acute kidney injury:
--- NOTE | 2021-05-24 12:39 | ST.MBS ---
Modified Barium Swallow - Patient Information Study Date: 05/24/21 Study Time: 13:30 Direct Billable Minutes: 95 Total Minutes procedure & reportin Diagnosis: Dysphagia, unspecified (R13.10) Referring Physician: Beni Lackey Reason for Referral: Objectively assess swallow function, risk for aspiration, and determine recommendations for least restrictive diet textures and compensatory strategies to improve safety of swallow. Medical History: Arelis Mendoza is a 66 F resident under the standard care facility who was brought to [facility] ED 05/21/2021 with decreased level of sensorium. PMH significant for achalasia, dementia, bipolar 1 disorder, DM type II, HTN, respiratory failure with hypoxia, psychosis, schizophrenia, insomnia, andxiety, and delirium (SEE H&P for full history). Patient had recently been treated for pneumonia and apparently completed a course of antibiotic on 05/12/2021. Patient was found to be rhonchorous. On 05/12/2021 the patient was found to be rhonchorous and barely responsive on the day of patient admission to the [facility]. She was therefore sent to the ED. Chest x-ray to the emergency department did demonstrate patchy left lower lobe infiltrate. Patient admitted for management of UTI, pneumonia, sepsis, encephalopathy. Pt has extensive history of dysphagia with most recent MBS study February of 2022 revealing aspiration of thin, nectar thick, and honey thick liquids with recommendation for pt to remain NPO. Feeding tube was subsequently placed. Upon this hospital admission, she had no feeding tube placed and had been on puree textures / honey thickened liquids since 05/07/21. BSE on 05/22/2021 recommended pt remain strict NPO. Patient is not appropriate for PEG tube or dobhoff placement per Dr. Klein who consulted 05/23/2021. Dr. Lackey is requesting VIRTUAL RECRUITER reassess for least restrictive diet textures. At bedside on 05/24/2021, the patient presented with overt s/s of aspiration with all consistencies except for applesauce. VIRTUAL RECRUITER recommended MBS study prior to diet advancement due to history of dysphagia. Current Diet Ordered: Strict NPO Dentition: Edentulous Mental Status: Impaired Respiratory Status: Oxygenating on Room Air - Penetration-Aspiration Scale Penetration-Aspiration Scale: OBJECTIVE ASSESSMENT OF SWALLOW FUNCTION (QUANTITATIVE ? PER TRIAL): PENETRATION / ASPIRATION SCALE (LAWSON): 1 = does not enter airway 2 = enters airway/above vocal folds/ejected 3 = enters airway/above vocal folds/not ejected 4 = enters airway/contacts vocal folds/ejected 5 = enters airway/contacts vocal folds/not ejected 6 = enters airway/below vocal folds/ejected 7 = enters airway/below vocal folds/not ejected despite effort 8 = enters airway/below vocal folds/no effort VIDEOFLOROSCOPIC SCALE SCORE (LAWSON): Grade I = aspiration of material that has penetrated into the laryngeal vestibule, intact cough reflex Grade II = aspiration < 10 % of the bolus, intact cough reflex Grade III = aspiration of < 10 % of the bolus, reduced cough reflex or aspiration of > 10 % of the bolus, intact cough reflex Grade IV = aspiration of > 10 % of the bolus, reduced cough reflex - Penetration-Aspiration Scale Score Thin Liquid via teaspoon Result: 5= enters airways/contacts vocal folds/not ejected Thin Liquid via teaspoon Trial 2 Result: 2= enter airway/above vocal folds/ejected Thin Liquid via teaspoon Trial 3 Comment: Could not score due to patient's body habitus and patient moving during trial. Thin Liquid via small single sip from cup Comment: Could not score due to patient's body habitus and patient moving during trial. [place] Thick Liquid via teaspoon Result: 1= does not enter airway [place] Thick Liquid via teaspoon Trial 2 Result: 1= does not enter airway [place] Thick Liquid via teaspoon Trial 3 Result: 1= does not enter airway Thin Liquid via teaspoon Trial 4 Result: 1= does not enter airway Thin Liquid via teaspoon Trial 5 Result: 1= does not enter airway - Coughing episode immediately following trial [place] Thick Liquid via teaspoon Result: 1= does not enter airway Pud[place] with esophageal screen Result: 1= does not enter airway Pudding Trial 2 Comment: Could not score due to patient's body habitus and patient moving during trial. [place]udding Trial 3 Result: 1= does not enter airway Thin Liquid via teaspoon Trial 6 Result: 3= enters airways/above vocal folds/not ejected - Oral Phase Labial Seal: Escape beyond mid-chin Tongue Control During Bolus Hold: Posterior escape of less than half of bolus Bolus Preparation/Mastication: Minimal chewing/mashing with majority of bolus unchewed - Did not test due to poor attention to task and concern for pt being at increased risk for choking. Bolus Transport/Lingual Motion: Repetitive/disorganized tongue motion Oral Residue: Residue collection on oral structures - Pharyngeal Phase Initiation of Pharyngeal Swallow: Bolus head in pyriforms Soft Palate Elevation: No bolus between soft palate and pharyngeal wall Laryngeal Elevation: Partial superior movement thyroid cart/partial apprx aryt-epig petiole Anterior Hyoid Excursion: Partial anterior movement Epiglottic Movement: Partial inversion Laryngeal Vestibule Closure at Height of Swallow: Incomplete; narrow column of air/contrast in laryngeal vestibule Pharyngeal Stripping Wave: Present - diminished Pharyngoesophageal Segment Opening: Parital distension and partial duration; parital obstruction of flow Tongue Base Retraction: Narrow column of contrast between tongue base & post. pharyngeal wall Pharyngeal Residue: Trace residue within or on pharyngeal structures - Esophageal Phase Esophageal Clearance: Esophageal retention w/ retrograde flow below pharyngoesophageal seg. - Diagnosis/Impression Diagnosis: Moderate oropharyngeal phase dysphagia (R13.12) Impression: For the above trials, VIRTUAL RECRUITER COULD NOT RULE OUT ASPIRATION due to patient's body habitus. Unable to view below the level of the vocal folds. In addition to pt's body habitus impacting the image, pt frequent moved in chair throughout the study. The oral phase is marked by decreased bolus control with premature posterior spillage, especially noted with sips of thin liquid trials. The patient demonstrates lingual pumping with A-P transport in certain trials. The pharyngeal phase is marked by delayed swallow onset and decreased airway closure during the swallow. She presents with decreased hyoid excursion and laryngeal elevation during the swallow resulting in decreased airway closure. The patient demonstrated laryngeal penetration of thin liquid trials that did not appear to fully eject from the airway. Suspect potential postprandial aspiration due to coughing episode observed after thin liquid trial via tsp during the study. The esophageal phase is marked by slowed emptying of contrast through the patient's distal esophagus with retrograde flow of bolus below UES. The patient is at increased risk for aspiration of reflux at meals with reflux and hx of achalasia. The patient's cognitive status greatly increases her risk for aspiration due to poor attention to task and decreased comprehension skills. She requires total feed to ensure use of compensatory strategies to decrease risk for aspiration. - Recommendations Diet: Puree Textures, Honey-thick Liquids Comment: Discontinue meals if increased s/s of aspiration. Consider smaller, more frequent meals (4-5 smaller meals daily). Monitor lung sounds with diet tolerance. Compensatory Strategies: Small Bites, Small Sips, Liquid by Teaspoon Only, Slow Rate - Sips one at a time, Sitting upright, Remain sitting upright for 30 minutes after PO intake Supervision: Total Feed Recommend Repeat Modified Barium Swallow: TBD Need for Skilled Speech Therapy Services: Yes Comment: Will recommend the patient for skilled dysphagia therapy to address deficits in oropharyngeal swallow function. Plan for ongoing assessment of diet tolerance at bedside. Closely monitor lung sounds with diet tolearance. Would consider the patient for oropharyngeal strengthening as pt is able to follow commands to participate. Would consider implementation of chin tuck against resistance, effortful swallows, and lingual coordination exercises. Would recommend education to nursing staff re: diet recommendations and compensatory strategies to decrease the patient's risk for aspiration. Education Completed: 1. Described result of evaluation., 7. Pt requires further education on strategies & risks. - Status Active ST Patient: Active - Contact Information [facility] Speech Therapy:: Romi Brewer M.A. [facility]-VIRTUAL RECRUITER Speech-Language Pathologist [facility] [address] [place] [address] [email or web address] [phone] 05/24/21 15:14
--- NOTE | 2021-05-24 12:56 | NURSING ---
called report to MS Esther RN at this time
--- NOTE | 2021-05-24 13:11 | CASEMGMT ---
Social Work SARA spoke with Siena RN who states she has updated pt niece Cheryl on pt condition and Cheryl requesting to speak to a social science research assistant. SARA spoke with Cheryl who has concerns on decision making as pt has no HCPOA nor guardian. SARA spoke with Cheryl regarding legal medical decision making hierarchy. Pt is not , has no children, parents are , has three siblings. Nena (who is unable to make decisions), Rima (who has not been involved) and Chaz who has been caring for pt along with Cheryl for the last 20 years. SARA explained siblings would be legal medical decision makers. SARA spoke with Cheryl regarding goals of care decisions and provided support. Cheryl to speak with Chaz and update on conversation with nurse. SARA received a call from Chazabhinav Mendoza, pt brother. Discussed goals of care and information from physicians regarding concerns with peg tube placement, Modified barium swallow test scheduled for today and possibility of hospice services at [facility] and code status. Chaz stating that he is understanding about concerns with placing the peg tube. Per Chaz he would not want feeding tube for pt, wants to change code status to DNR and would be agreeable to return to [facility] with hospice services but does want pt to get MBS test. SW informed Chaz that Medical staff will need to talk with him to clarify his decisions on behalf of pt and Chaz is understanding. Dr. Lackey and GAURAV Wren updated on the above conversation and SW requested they contact Chaz to discuss medical decisions for pt. Chaz Mendoza [phone] PARTH Martínez
--- NOTE | 2021-05-24 14:11 | CHAPLAIN ---
Type of Pastoral Visit _x__ Initial Visit ___ Follow-up Visit ___ On-call Visit ___ General Patient Visit ___ Spiritual Assessment ___ Family Conference ___ Bereavement ___ Rapid Response ___ Code Blue ___ Other (describe below) Pastoral Care Referral From ___ Patient _x__ Family _x__ Nurse ___ Physician ___ Marine Safety Officer ___ Air Bag Builder ___ Other (describe below) Sacrament/Intervention ___ Active listening ___ Anointing ___ Taoist ___ Bereavement ___ Communion ___ Hetal exploration ___ ___ Life review _x__ Prayer ___ Reconciliation ___ Sacrament of Sick _x__ Supportive presence ___ Wedding ___ Other (describe below) Pastoral Comments met with patient while still in ICU and before being moved to [facility]; pt did open her eyes and made verbal remarks which were mostly unintelligible; pt movement in bed was constant; spoke softly and slowly offering words of comfort to pt; quoted verses from Psalm and gave assurance to pt that she was safe and in a good place
[2021-05-24 16:01] LABS: Bedside Glucose 89 mg/dL (74-106)
[2021-05-24 16:36] LABS: Bedside Glucose 105 mg/dL (74-106)
[2021-05-24] MEDS: Piperacil/Tazobactam 3.375 GM/50 ML ML IV (18:38)
[2021-05-24 21:01] LABS: Vancomycin, Trough Level 15.2 ug/mL (5.0-15.0)
[2021-05-24 21:31] LABS: Bedside Glucose 82 mg/dL (74-106)
[2021-05-25] VITALS (8 sets, daily range): BP systolic 100–108; BP diastolic 43–86; PULSE 64–120; RESP 16–25; TEMP 36.4–37.1; O2SAT 90–98
--- NOTE | 2021-05-25 00:41 | PCM.RX.CS ---
Consult Pharmacy has been consulted to manage selected antiobiotic: Vancomycin Type of Consult: Follow-up Labs: Sodium 150 mmol/L (136-145) H 05/24/21 04:05 Potassium 3.5 mmol/L (3.5-5.1) 05/24/21 04:05 Chloride 123 mmol/L (98-107) H 05/24/21 04:05 Carbon Dioxide 24.0 mmol/L (21.0-32.0) 05/24/21 04:05 Anion Gap 3 (5-15) L 05/24/21 04:05 BUN 23 mg/dL (7-18) H 05/24/21 04:05 Creatinine 0.82 mg/dL (0.55-1.02) 05/24/21 04:05 Est GFR (MDRD) Af Amer 90 mL/min (>60) 05/24/21 04:05 Est GFR (MDRD) Non-Af 74 mL/min (>60) 05/24/21 04:05 BUN/Creatinine Ratio 28.2 RATIO (10-20) H 05/24/21 04:05 Glucose 91 mg/dL (74-106) 05/24/21 04:05 Vancomycin Trough 15.2 ug/mL (5.0-15.0) H 05/24/21 20:16 Random Vancomycin 13.8 ug/mL (0.0-15.0) 05/23/21 04:00 Microbiology: Microbiology 05/21/21 11:00 Urine, Clean Catch Urine Culture - Final Escherichia coli 05/23/21 10:00 Stool C. difficile DNA Amplification - Final 05/21/21 09:20 Blood Culture (Wb) - Right Hand Blood Culture - Preliminary No growth in 48 hours. 05/21/21 09:20 Blood Culture (Wb) - Left Hand Blood Culture - Preliminary No growth in 48 hours. 05/21/21 09:50 Nasal Secretion SARS-CoV-2 Antigen (Rapid) - Final 05/21/21 16:25 Sputum, Expectorated/Coughed Gram Stain - Final 05/21/21 16:25 Sputum, Expectorated/Coughed Respiratory Culture - Final Escherichia coli Coag Negative Staph GPC Poss Enterococcus sp 05/21/21 Unknown Mucosa - Nasopharyngeal Respiratory Panel (PCR) - Final 05/21/21 11:00 Urine Catheter - Hdez Legionella Antigen - Final 05/21/21 11:00 Urine Catheter - Hdez Streptococcus pneumoniae Antigen (M - Final 05/21/21 Unknown Mucosa - Nasopharyngeal Influenza Types A,B Direct FA ([facility]) - Final Pharmacy Plan for Drug Dosing: Pharmacy Service will continue to monitor and adjust dosing as required. TROUGH 15.2 @ 8 HRS. NO CHANGES FOLLOW UP TROUGH IN 2 DAYS Follow-Up Labs: Trough Vancomycin Labs to be done on [date and time ordered]: 05/26 @ 2030
[2021-05-25] MEDS: Piperacil/Tazobactam 3.375 GM/50 ML ML IV (01:37)
--- NOTE | 2021-05-25 04:34 | NURSING ---
Pt pulled out right subclavian central line; sutures removed, site cleaned and dressed.
[2021-05-25] MEDS: LORazepam 2 MG/ML Syringe 1 MG IV ×2 (05:29→12:34)
[2021-05-25] MEDS: Heparin Injection (Vial) 5,000 UNIT/ML VIAL 5000 UNIT SC ×3 (05:41→22:09)
[2021-05-25 06:26] LABS: Bedside Glucose 72 mg/dL (74-106)
--- NOTE | 2021-05-25 06:59 | PCM.PN.INT ---
Assessment & Plan Assessment/Plan (1) Septic shock: PLAN: RECOMMENDATIONS: 1. Continue antimicrobials to complete treatment course, per ID recommendations. 2. Stop supplemental IV fluids. 3. Dietary advancement per speech therapy recommendations. 4. Maintain aspiration precautions. 5. Encourage incentive spirometer use while in bed. IMPRESSIONS: 1. Gram-negative septic shock Improved. The patient presented with septic shock secondary to gram-negative pneumonia and urinary tract infection. She did have evidence of sepsis induced organ dysfunction as manifested by encephalopathy, acute kidney injury and fluid refractory hypotension, necessitating vasopressor support. She does have a history of prior hospital admissions for sepsis along with a history of achalasia putting her at high risk for aspiration. The patient did receive appropriate IV fluid hydration and ultimately required Levophed to maintain hemodynamic stability. Plan to continue antimicrobials per ID recommendations. The patient has been weaned from vasopressor support at this time and remains hemodynamically stable. 2. Acute kidney injury/hypernatremia Improved. Most likely prerenal in etiology and related to free water loss in the setting of septic shock. Continue current supportive measures. Nephrology is following to assist with medical management. 3. Metabolic encephalopathy Improved. Most likely related to underlying infection and profound metabolic derangements. Continue supportive measures as noted above. 4. Troponin elevation/atrial fibrillation with RVR Likely secondary to demand ischemia in the setting #1. Atrial fibrillation resolved with amiodarone. Surface echocardiogram was unremarkable. 5. History of dysphagia and achalasia with increased aspiration risk The patient does have a known history of aspiration and did undergo PEG tube placement in 2019. However, at some point in time the PEG tube was removed and she was being maintained on a p.o. diet at her [place] [facility] facility. Speech therapy is currently following. Although modified barium swallow was completed, aspiration could not be ruled out due to the patient's body habitus. Although a modified diet and aggressive dysphagia therapy was recommended, I do feel that the patient is at extremely high risk for future aspiration events and subsequent pneumonias. 6. History of dementia/paroxysmal atrial fibrillation/hypertension/hyperlipidemia/achalasia/diabetes mellitus Complicates care, management, recovery and prognosis. Continue sliding scale insulin coverage. Continue evaluation by speech therapy. This note was generated with [employer] dictation software. It may contain incorrect words, spelling, and punctuation that were not noted in checking the note before signing. Subjective Subjective The patient was seen and examined at the bedside this morning. Events from the last 24 hours have been reviewed. The patient is currently afebrile, hemodynamically stable and maintaining appropriate oxygen saturations on room air. The patient is currently documented to be overall net +7.3 L for the hospitalization. She remains on antimicrobials and dextrose containing supplemental IV fluids. The patient did undergo a modified barium swallow yesterday. However, aspiration could not be ruled out due to the patient's body habitus. A modified diet and skilled dysphagia therapy was recommended. Objective Data Objective Data The patient's most recent lab work, culture data and imaging studies have all been personally reviewed. Surface echocardiogram demonstrated normal LV size and function with an ejection fraction of 65%. Rapid coronavirus antigen testing was negative. Respiratory viral panel was negative. Strep and urine Legionella antigens were negative. E. coli was isolated from urine culture. E. coli and possible Enterococcus were isolated from sputum culture. Vital Signs: Vital Signs Temp Pulse Resp BP Pulse Ox 98.7 F 88 16 100/60 95 05/25/21 03:42 05/25/21 04:02 05/25/21 03:42 05/25/21 03:42 05/25/21 03:42 Oxygen Flow Rate (L/min) 2 Oxygen Delivery Method Room Air Weight: 69 kg Body Mass Index (BMI) 28.9 Intake & Output: Intake and Output for Last 24 Hours 05/23/21 05/24/21 05/25/21 23:59 23:59 23:59 Intake Total 2574.64 / 2584.04 1459.48 / 1459.48 50 / 50 Output Total 1300 / 1625 1000 / 1000 450 / 450 Balance 1274.64 / 959.04 459.48 / 459.48 -400 / -400 Lab / Micro Data Attestation: I reviewed the patient's lab results. Result Diagrams: 05/25/21 07:27 05/24/21 04:05 Labs: Laboratory Results - last 24 hr 05/24/21 10:55: POC Glucose 99 05/24/21 15:50: POC Glucose 89 05/24/21 16:19: POC Glucose 105 05/24/21 20:16: Vancomycin Trough 15.2 H 05/24/21 21:25: POC Glucose 82 05/25/21 06:20: POC Glucose 72 L Micro: Microbiology 05/21/21 11:00 Urine, Clean Catch Urine Culture - Final Escherichia coli 05/23/21 10:00 Stool C. difficile DNA Amplification - Final 05/21/21 09:20 Blood Culture (Wb) - Right Hand Blood Culture - Preliminary No growth in 48 hours. 05/21/21 09:20 Blood Culture (Wb) - Left Hand Blood Culture - Preliminary No growth in 48 hours. 05/21/21 09:50 Nasal Secretion SARS-CoV-2 Antigen (Rapid) - Final 05/21/21 16:25 Sputum, Expectorated/Coughed Gram Stain - Final 05/21/21 16:25 Sputum, Expectorated/Coughed Respiratory Culture - Final Escherichia coli Coag Negative Staph GPC Poss Enterococcus sp 05/21/21 Unknown Mucosa - Nasopharyngeal Respiratory Panel (PCR) - Final 05/21/21 11:00 Urine Catheter - Hdez Legionella Antigen - Final 05/21/21 11:00 Urine Catheter - Hdez Streptococcus pneumoniae Antigen (M - Final 05/21/21 Unknown Mucosa - Nasopharyngeal Influenza Types A,B Direct FA ([place]) - Final Physical Exam Const alert Constitutional Narrative: Frail and cachectic. Chronically ill in appearance. General Appearance: appears older than stated age Orientation / Consciousness: confused HEENT normocephalic and head/scalp atraumatic HEENT Narrative: Edentulous. Eyes PERRL and EOMs intact bilaterally Neck supple General: trachea midline Chest inspection of chest normal Resp Resp Narrative: Poor inspiratory effort. Effort and Inspection: Negative for labored Auscultation: diminished lung sounds Cardio regular rate and regular rhythm GI normal to inspection, nondistended, normoactive bowel sounds Extremity no clubbing, cyanosis or edema Skin no rashes or lesions noted Neuro moves all extremities and no focal motor deficits Psych Activity / Motor Behavior: restless Charges/Coding Visit Charges Inpatient E&M: 34031 Subs Hosp L2
[2021-05-25] MEDS: Albuterol 2.5 MG/3 ML VIAL.NEB. INHALATION ×2 (07:15→19:38)
[2021-05-25] MEDS: Budesonide Respules 0.5 MG/2 ML AMPUL.NEB. INHALATION ×2 (07:15→19:38)
--- NOTE | 2021-05-25 07:34 | PN.HOSP_ITS ---
Subjective Subjective Patient was transferred from ICU to [facility] floor. Patient's condition and case has been discussed with patient's decision maker his brother Chaz who is agreeable to no feeding tube nor PEG tube. He also apparently did agree to CODE STATUS changes to DNR CC and hospice consultation. I did place a call twice to brother he is yet to answer. Patient apparently pulled out his central line during the night. Seen this a.m. still remains significantly restless. Sodium levels trending up up to 150. Objective Data Objective Data Vital Signs: Vital Signs Temp Pulse Resp BP Pulse Ox 98.7 F 74 25 H 100/60 90 05/25/21 03:42 05/25/21 07:15 05/25/21 07:15 05/25/21 03:42 05/25/21 07:15 Oxygen Flow Rate (L/min) 2 Oxygen Delivery Method Room Air Weight: 69 kg Body Mass Index (BMI) 28.9 Intake & Output: Intake and Output for Last 24 Hours 05/23/21 05/24/21 05/25/21 23:59 23:59 23:59 Intake Total 2574.64 / 2584.04 1459.48 / 1459.48 50 / 50 Output Total 1300 / 1625 1000 / 1000 450 / 450 Balance 1274.64 / 959.04 459.48 / 459.48 -400 / -400 Lab / Micro Data Result Diagrams: 05/25/21 07:27 05/25/21 07:27 Labs: Laboratory Results - last 24 hr 05/24/21 10:55: POC Glucose 99 05/24/21 15:50: POC Glucose 89 05/24/21 16:19: POC Glucose 105 05/24/21 20:16: Vancomycin Trough 15.2 H 05/24/21 21:25: POC Glucose 82 05/25/21 06:20: POC Glucose 72 L Micro: Microbiology 05/21/21 11:00 Urine, Clean Catch Urine Culture - Final Escherichia coli 05/23/21 10:00 Stool C. difficile DNA Amplification - Final 05/21/21 09:20 Blood Culture (Wb) - Right Hand Blood Culture - Preliminary No growth in 48 hours. 05/21/21 09:20 Blood Culture (Wb) - Left Hand Blood Culture - Preliminary No growth in 48 hours. 05/21/21 09:50 Nasal Secretion SARS-CoV-2 Antigen (Rapid) - Final 05/21/21 16:25 Sputum, Expectorated/Coughed Gram Stain - Final 05/21/21 16:25 Sputum, Expectorated/Coughed Respiratory Culture - Final Escherichia coli Coag Negative Staph GPC Poss Enterococcus sp 05/21/21 Unknown Mucosa - Nasopharyngeal Respiratory Panel (PCR) - Final 05/21/21 11:00 Urine Catheter - Hdez Legionella Antigen - Final 05/21/21 11:00 Urine Catheter - Hdez Streptococcus pneumoniae Antigen (M - Final 05/21/21 Unknown Mucosa - Nasopharyngeal Influenza Types A,B Direct FA ([place]) - Final Physical Exam Narrative GENERAL: Patient is restless HEENT: Atraumatic; EYES; Anicteric, Normal Conjunctiva NECK; supple, normal thyroid, RESPIRATORY: Diminished to auscultation CARDIOVASCULAR: Regular S1 S2, GI: soft, normoactive bowel sounds, : No Renal angle tenderness; EXTREMITIES: No edema, no clubbing, MUSCULOSKELETAL: no muscle wasting NEURO: No lateralizing signs SKIN: No Rash PSYCH; Flat affect Assessment & Plan Assessment/Plan (1) Chronic insomnia: (2) UTI (urinary tract infection): (3) Delirium: (4) Hypotension: (5) Infectious encephalopathy: (6) Acute prerenal azotemia: (7) Septic shock: (8) Pneumonia: (9) Acute kidney injury: (10) Acute UTI: (11) Acute hypernatremia: (12) Acute hypotension: PLAN: Patient is a 66-year-old resident of an [facility] brought in with altered mental status 1. Acute metabolic encephalopathy ?Multifactorial from sepsis, BRIAN, infectious etiology (pneumonia and UTI). Patient has been admitted to the intensive care unit with treatment of conditions contributing to patient encephalopathy -05/22/2021. Patient level of sensorium improving ?05/25/2021 patient still remains significantly restless currently on Haldol as needed for agitation. Patient was transferred from ICU to [facility] floor. Patient's condition and case has been discussed with patient's decision maker his brother Chaz who is agreeable to no feeding tube nor PEG tube. He also apparently did agree to CODE STATUS changes to DNR CC and hospice consultation. I did place a call twice to brother he is yet to answe 2. Septic shock ?Patient qSOFA on admission was 3. Has elevated WBC count MAP less than 65 creatinine greater than 2 respiratory rate greater than 20 heart rate greater than 90. Patient did not respond to initial fluid resuscitation in the ER. Continues IV fluid resuscitation continued in the ICU. Cultures were obtained in the ED. Patient started on broad-spectrum antibiotic therapy with Zosyn Levaquin and vancomycin with consultation placed to ID and mobile marketing manager -05/22/2021. Patient had to be started on Levophed in view of persistently low blood pressure which had failed to respond to fluids -05/23/2021; patient WBC count improving however patient still remains on pressors. Levophed 05/24/2021; patient urine cultures so far positive for E. coli. Sputum cultures positive for E. coli, coagulase-negative staph and GPC possible Enterococcus species.. Blood cultures so far negative to date. Subsequent antibiotic therapy deferred to ID -05/25/2021. Patient antibiotics switched to Levaquin 500 mg p.o. daily 3. Pneumonia ?Patient is at significant risk for MDR's. Patient was therefore started on broad-spectrum antibiotic therapy to cover for both Pseudomonas as well as MRSA pending culture result -05/22/2021; cultures pending -05/23/2021; patient to undergo speech and swallow eval if patient fails patient may be a candidate for PEG tube placement consult has been placed to Dr. Young with general surgery for possible PEG tube placement should patient fail her speech and swallow eval -05/24/2021 Consult was placed to general surgery and case discussed with Dr. Young for possible assessment for PEG tube placement. It was felt patient was not a good candidate for either PEG tube or Dobbhoff. Plan is to have a family discussion to discuss CODE STATUS and goals of care. ?05/25/2021 antibiotics switched to Levaquin 500 mg p.o. daily 4. Complicated acute cystitis ?Patient is on broad-spectrum antibiotic therapy cultures sent - -05/22/2021; cultures pending 5. Acute kidney injury ?Possibly ATN patient is on aggressive IV fluid resuscitation with monitoring of electrolytes with consultation placed to nephrology Case discussed with Dr. Barrios - 05/22/2021; patient kidney function remains impaired with a creatinine of 2.83 -05/23/2021; creatinine down to 1.33 6. Mild hyperkalemia ?Secondary to #5 do expect improvement with treatment of patient's BRIAN -05/22/2021 potassium down to 4.1 7. Hypernatremia ?Secondary to severe dehydration and hypovolemia. Patient is on aggressive IV fluid resuscitation with saline initially with plans to switch to 0.45 saline with serial monitoring with BMP ordered every 4. Nephrology on case -05/22/2021 sodium level down to 152 chloride remains elevated at 127 ?05/23/2021; sodium level 145 -05/25/2021; sodium levels trending up currently up to 150 patient started on D5W with serial monitoring of electrolytes ordered 8. Elevated troponin secondary to acute non-STEMI type II ?As a result of patient underlying infection and sepsis -05/22/2021 patient Troponin continues to rise 589 as of last evening. 2D echo ordered for regional wall motion abnormalities Assessment. 2D echo demonstrated EF of 65% with a normal left ventricular systolic function pulmonary arterial systolic pressure of 26 and moderate mitral annular calcification 9. Essential hypertension ?Patient antihypertensives on hold 10. Dyslipidemia ?Patient was previously on statin therapy currently not on the med 11. Paroxysmal A. fib ?Currently in sinus rhythm 12. Diabetes mellitus type 2 ?Patient is on Metformin this was held please on Accu-Cheks every 6 with insulin coverage 13. Achalasia ?Patient has history of previous esophageal food impaction 14. Dementia ?Per history supportive care 15. DVT prophylaxis ?SC heparin 16. Anemia - Secondary to chronic disorder monitoring H&H and transfuse if patient becomes symptomatic or hemoglobin falls below 7 CODE STATUS; DNR CC Charges/Coding Visit Charges Inpatient E&M: 08180 Subs Hosp L3
[2021-05-25 07:51] LABS: Absolute Lymphocyte Count 0.45 X10^3/uL (0.83-4.51); Absolute Neutrophil Count 3.3 X10^3/uL (2.0-7.7); Basophil# 0.01 X10^3/uL; Basophil% 0.2 % (0-1); Eosinophil# 0.25 X10^3/uL; Eosinophils% 5.8 % (0-5); Hematocrit 28.8 % (37-47); Hemoglobin 9.3 g/dL (12.0-15.0); Lymphocyte # 0.45 X10^3/ul (0.83-4.51); Lymphocyte % 10.5 % (19-41); Mean Corp Hgb Conc 32.3 g/dL (32-36); Mean Corpuscular Hgb 28.4 pg (27.0-32.0); Mean Corpuscular Volume 88.1 fL (81-99); Monocyte# 0.26 X10^3/uL; NRBC Flagged by Analyzer 0 % (0-5); Neutrophil # 3.31 X10^3/uL (2.7-7.7); POSITIVE COUNT YES; POSITIVE DIFFERENTIAL YES; Platelet Count 95 K/mm3 (150-450); RBC Distribution Width CV 16.9 % (11.6-14.6); RBC Distribution Width SD 53.3 fl (35.1-43.9); Red Blood Count 3.27 M/mm3 (4.2-5.4); White Blood Count 4.3 K/mm3 (4.4-11.0)
[2021-05-25 07:53] LABS: Differential Indicated SCAN CRITERIA MET
[2021-05-25 08:08] LABS: Anion Gap 3 (5-15); BUN 17 mg/dL (7-18); BUN/Creat Ratio 19.3 RATIO (10-20); Calcium,Total 7.6 mg/dL (8.5-10.1); Chloride 123 mmol/L (98-107); Creatinine, Serum 0.88 mg/dL (0.55-1.02); EST Glomerular Filtration Rate 68 mL/min (>60); Est Glom Filt Rate - Afr Amer 82 mL/min (>60); Estimated Creatinine Clearance 67.57 ml/min; Glucose 76 mg/dL (74-106); Potassium 3.5 mmol/L (3.5-5.1); Sodium Level 147 mmol/L (136-145)
[2021-05-25 08:35] LABS: Platelet Estimate SLT DEC (ADEQ)
[2021-05-25] MEDS: Vancomycin IV 500 MG/100 ML BAG 100 MG IV (09:23)
[2021-05-25] MEDS: levoFLOXacin 500 MG Tablet PO (10:33)
[2021-05-25] MEDS: Nystatin Powder 15gm Bottle 1 APPLIC TOPICAL ×2 (10:37→22:00)
[2021-05-25] MEDS: Menthol/Lanolin/Calamine/Znox 113 GM Tube 1 APPLIC TOPICAL ×2 (10:37→22:01)
[2021-05-25 11:46] LABS: Bedside Glucose 103 mg/dL (74-106)
--- NOTE | 2021-05-25 12:16 | PCM.PN.REN ---
Subjective Subjective Following for hyponatremia and prior BRIAN. Patient denies chest pain or shortness of breath at rest. She is still on D5W at 100 cc/h. Objective Data Objective Data Vital Signs: Vital Signs Temp Pulse Resp BP Pulse Ox 97.6 F L 96 18 108/86 H 97 05/25/21 07:30 05/25/21 08:00 05/25/21 07:30 05/25/21 07:30 05/25/21 07:30 Oxygen Flow Rate (L/min) 2 Oxygen Delivery Method Room Air Weight: 69 kg Body Mass Index (BMI) 28.9 Intake & Output: Intake and Output for Last 24 Hours 05/23/21 05/24/21 05/25/21 23:59 23:59 23:59 Intake Total 2574.64 / 2584.04 1459.48 / 1459.48 1150 / 1150 Output Total 1300 / 1625 1000 / 1000 450 / 450 Balance 1274.64 / 959.04 459.48 / 459.48 700 / 700 Lab / Micro Data Result Diagrams: 05/25/21 07:27 05/25/21 07:27 Labs: Laboratory Results - last 24 hr 05/24/21 15:50: POC Glucose 89 05/24/21 16:19: POC Glucose 105 05/24/21 20:16: Vancomycin Trough 15.2 H 05/24/21 21:25: POC Glucose 82 05/25/21 06:20: POC Glucose 72 L 05/25/21 07:27: WBC 4.3 L, RBC 3.27 L, Hgb 9.3 L, Hct 28.8 L, MCV 88.1, MCH 28.4, MCHC 32.3, RDW Std Deviation 53.3 H, RDW Coeff of Jesica 16.9 H, Plt Count 95 L, Immature Gran % (Auto) 0.500, Neut % (Auto) 77.0 H, Lymph % (Auto) 10.5 L, [place] % (Auto) 6.0, Eos % (Auto) 5.8 H, Baso % (Auto) 0.2, Absolute Neuts (auto) 3.3, Absolute Lymphs (auto) 0.45 L, Nucleated RBC % 0, Diff Path Review July, Platelet Estimate SLT 05/25/21 07:27: Sodium 147 H, Potassium 3.5, Chloride 123 H, Carbon Dioxide 21.0, Anion Gap 3 L, BUN 17, Creatinine 0.88, Estim Creat Clear Calc 67.57, Est GFR (MDRD) Af Amer 82, Est GFR (MDRD) Non-Af 68, BUN/Creatinine Ratio 19.3, Glucose 76, Calcium 7.6 L 05/25/21 11:37: POC Glucose 103 Micro: Microbiology 05/21/21 11:00 Urine, Clean Catch Urine Culture - Final Escherichia coli 05/23/21 10:00 Stool C. difficile DNA Amplification - Final 05/21/21 09:20 Blood Culture (Wb) - Right Hand Blood Culture - Preliminary No growth in 48 hours. 05/21/21 09:20 Blood Culture (Wb) - Left Hand Blood Culture - Preliminary No growth in 48 hours. 05/21/21 09:50 Nasal Secretion SARS-CoV-2 Antigen (Rapid) - Final 05/21/21 16:25 Sputum, Expectorated/Coughed Gram Stain - Final 05/21/21 16:25 Sputum, Expectorated/Coughed Respiratory Culture - Final Escherichia coli Coag Negative Staph GPC Poss Enterococcus sp 05/21/21 Unknown Mucosa - Nasopharyngeal Respiratory Panel (PCR) - Final 05/21/21 11:00 Urine Catheter - Taylor Legionella Antigen - Final 05/21/21 11:00 Urine Catheter - Taylor Streptococcus pneumoniae Antigen (M - Final 05/21/21 Unknown Mucosa - Nasopharyngeal Influenza Types A,B Direct FA ([place]) - Final Physical Exam Narrative Alert and awake no obvious distress no pallor no icterus no JVD s1s2 no murmurs lungs clear abdomen soft, non-tender no edema taylor + Assessment & Plan Assessment/Plan (1) Acute hypernatremia: PLAN: -likely due to poor oral intake, lack of free water. Sodium peaked 163 improved to 145 but back up today to 150 on 05/24/2021. -Continue D5W for another day. We can probably either stop D5W or decrease IV rate tomorrow. She is back on regular diet. -There is no signs of volume overload. -We will monitor sodium trends. (2) Acute kidney injury: PLAN: -Baseline creatinine was normal as of last year. She is a resident of [facility] as per history. -BRIAN was likely ischemic ATN. Patient is nonoliguric. BUN and cr is stable. Creatinine peaked to 6.17 mg/dL on admission, today creatinine 0.88 mg/dL. -Blood pressures is also stable. -Keep hydrated and keep MAP above 65 mmHg.
[2021-05-25] MEDS: 0.9% Saline Lock 10 ML Syringe IV (12:34)
--- NOTE | 2021-05-25 13:04 | CASEMGMT ---
Social Work Per charge nurse, family to be touching base with hospice to determine if patient is hospice appropriate. Charge nurse reports that family was reaching out to hospice services around 10am. Telephone call to patient Cheryl mccormack. No answer. Voicemail left. Will continue to follow as needed. Diane Mccrary [employer], SHARON-S
--- NOTE | 2021-05-25 13:11 | NURSING ---
talked with ulysses from hospice, aware she was unable to reach family this a.m. and will reattempt/let us know what she makes out
--- NOTE | 2021-05-25 13:29 | NURSING ---
talked with Sulema from hospice. aware she talked with MARTINEZ Ware brother aware hospice and Chaz to meet at facility at 14:00 05/26. aware they discussed IPU for symptom mgmt then dc back to [facility] verus dc to [facility] w/ hospice instead. social services specialist Maria Elena updated. Dr. Lackey updated.
[2021-05-25] MEDS: Oxybutynin 5 MG Tablet PO ×2 (15:09→21:57)
[2021-05-25] MEDS: clonazePAM 1 MG Tablet PO ×2 (15:09→22:24)
[2021-05-25] MEDS: QUEtiapine 100 MG Tablet PO (15:09)
[2021-05-25 16:45] LABS: Bedside Glucose 96 mg/dL (74-106)
--- NOTE | 2021-05-25 21:47 | CASEMGMT ---
Social Work Green Sheet placed on patient chart in the event that plan is for patient to return to [facility] tomorrow. Patient family to meet with hospice and discuss inpatient hospice unit vs. return to [facility]. Diane WASSERMAN, JYOTI
[2021-05-25] MEDS: ARIPiprazole 10 MG Tablet PO (21:57)
[2021-05-25] MEDS: QUEtiapine 100 MG Tablet 200 MG PO (22:00)
[2021-05-25] MEDS: MELATONIN 10 MG TABLET 5 MG PO (22:02)
[2021-05-25 22:51] LABS: Bedside Glucose 109 mg/dL (74-106)
[2021-05-26] VITALS (7 sets, daily range): BP systolic 92–118; BP diastolic 59–68; PULSE 62–72; RESP 16–24; TEMP 36.5–36.7; O2SAT 93–98
[2021-05-26] MEDS: levoFLOXacin 500 MG Tablet PO (05:27)
[2021-05-26] MEDS: Heparin Injection (Vial) 5,000 UNIT/ML VIAL 5000 UNIT SC ×2 (05:41→14:35)
[2021-05-26 06:41] LABS: Bedside Glucose 127 mg/dL (74-106)
[2021-05-26] MEDS: Budesonide Respules 0.5 MG/2 ML AMPUL.NEB. INHALATION (07:07)
[2021-05-26] MEDS: Albuterol 2.5 MG/3 ML VIAL.NEB. INHALATION ×2 (07:07→14:15)
[2021-05-26 07:11] LABS: Anion Gap 3 (5-15); BUN 11 mg/dL (7-18); BUN/Creat Ratio 12.9 RATIO (10-20); Calcium,Total 7.6 mg/dL (8.5-10.1); Chloride 120 mmol/L (98-107); Creatinine, Serum 0.86 mg/dL (0.55-1.02); EST Glomerular Filtration Rate 70 mL/min (>60); Est Glom Filt Rate - Afr Amer 85 mL/min (>60); Estimated Creatinine Clearance 67.44 ml/min; Glucose 121 mg/dL (74-106); Potassium 3.4 mmol/L (3.5-5.1); Sodium Level 144 mmol/L (136-145)
--- NOTE | 2021-05-26 07:35 | PCM.PN.HOSP ---
Subjective Subjective Patient seen appears to be back to baseline, sodium down to 144 potassium 3.4. Did decrease rate of patient D5W. Hospice/palliative care is scheduled to meet patient brother later this afternoon Objective Data Objective Data Vital Signs: Vital Signs Temp Pulse Resp BP Pulse Ox 98.1 F 62 16 115/59 L 96 05/26/21 04:47 05/26/21 04:47 05/26/21 04:47 05/26/21 04:47 05/26/21 04:47 Oxygen Flow Rate (L/min) 2 Oxygen Delivery Method Room Air Weight: 67.3 kg Body Mass Index (BMI) 28.9 Intake & Output: Intake and Output for Last 24 Hours 05/24/21 05/25/21 05/27/21 23:59 23:59 00:59 Intake Total 1459.48 / 1459.48 2560 / 2660 963.33 / 963.33 Output Total 1000 / 1000 1000 / 1550 875 / 875 Balance 459.48 / 459.48 1560 / 1110 88.33 / 88.33 Lab / Micro Data Result Diagrams: 05/26/21 07:45 05/26/21 06:26 Labs: Laboratory Results - last 24 hr 05/25/21 07:27: WBC 4.3 L, RBC 3.27 L, Hgb 9.3 L, Hct 28.8 L, MCV 88.1, MCH 28.4, MCHC 32.3, RDW Std Deviation 53.3 H, RDW Coeff of Jesica 16.9 H, Plt Count 95 L, Immature Gran % (Auto) 0.500, Neut % (Auto) 77.0 H, Lymph % (Auto) 10.5 L, Coryell % (Auto) 6.0, Eos % (Auto) 5.8 H, Baso % (Auto) 0.2, Absolute Neuts (auto) 3.3, Absolute Lymphs (auto) 0.45 L, Nucleated RBC % 0, Diff Path Review July, Platelet Estimate SLT 05/25/21 07:27: Sodium 147 H, Potassium 3.5, Chloride 123 H, Carbon Dioxide 21.0, Anion Gap 3 L, BUN 17, Creatinine 0.88, Estim Creat Clear Calc 67.57, Est GFR (MDRD) Af Amer 82, Est GFR (MDRD) Non-Af 68, BUN/Creatinine Ratio 19.3, Glucose 76, Calcium 7.6 L 05/25/21 11:37: POC Glucose 103 05/25/21 16:41: POC Glucose 96 05/25/21 22:14: POC Glucose 109 H 05/26/21 05:58: POC Glucose 127 H 05/26/21 06:26: WBC Cancelled, Corrected WBC Cancelled, RBC Cancelled, Hgb Cancelled, Hct Cancelled, MCV Cancelled, MCH Cancelled, MCHC Cancelled, RDW Std Deviation Cancelled, RDW Coeff of Jesica Cancelled, Plt Count Cancelled, MPV Cancelled, Immature Gran % (Auto) Cancelled, Neut % (Auto) Cancelled, Lymph % (Auto) Cancelled, Coryell % (Auto) Cancelled, Eos % (Auto) Cancelled, Baso % (Auto) Cancelled, Absolute Neuts (auto) Cancelled, Absolute Lymphs (auto) Cancelled, Total Counted Cancelled, Neutrophils % (Manual) Cancelled, Band Neutrophils % Cancelled, Lymphocytes % (Manual) Cancelled, Monocytes % (Manual) Cancelled, Eosinophils % (Manual) Cancelled, Basophils % (Manual) Cancelled, Metamyelocytes % Cancelled, Myelocytes % Cancelled, Promyelocytes % Cancelled, Blast Cells % Cancelled, Plasma Cell % (Manual) Cancelled, Other Cells % Cancelled, Nucleated RBC % Cancelled, Nucleated RBCs/100 WBC Cancelled, Differential Comment Cancelled, Diff Path Review Cancelled, Hypersegmented Neuts Cancelled, Atypical Lymphocytes Cancelled, Reactive Lymphocytes Cancelled, Smudge Cells Cancelled, Toxic Granulation Cancelled, Toxic Vacuolation Cancelled, Dohle Bodies Cancelled, Connor Rods Cancelled, Platelet Estimate Cancelled, Plt Morphology Comment Cancelled, RBC Morphology Cancelled, Polychromasia Cancelled, Hypochromasia Cancelled, Poikilocytosis Cancelled, Basophilic Stippling Cancelled, Anisocytosis Cancelled, Microcytosis Cancelled, Macrocytosis Cancelled, Spherocytes Cancelled, Sickle Cells Cancelled, Target Cells Cancelled, Tear Drop Cells Cancelled, Ovalocytes Cancelled, Stomatocytes Cancelled, Izquierdo-Ruffin Bodies Cancelled, [place] Cells Cancelled, Bite Cells Cancelled, Crenated Cell Cancelled, Acanthocytes (Spur) Cancelled, Rouleaux Cancelled, Schistocytes Cancelled 05/26/21 06:26: Sodium 144, Potassium 3.4 L, Chloride 120 H, Carbon Dioxide 21.0, Anion Gap 3 L, BUN 11, Creatinine 0.86, Estim Creat Clear Calc 67.44, Est GFR (MDRD) Af Amer 85, Est GFR (MDRD) Non-Af 70, BUN/Creatinine Ratio 12.9, Glucose 121 H, Calcium 7.6 L Micro: Microbiology 05/21/21 11:00 Urine, Clean Catch Urine Culture - Final Escherichia coli 05/23/21 10:00 Stool C. difficile DNA Amplification - Final 05/21/21 09:20 Blood Culture (Wb) - Right Hand Blood Culture - Preliminary No growth in 48 hours. 05/21/21 09:20 Blood Culture (Wb) - Left Hand Blood Culture - Preliminary No growth in 48 hours. 05/21/21 09:50 Nasal Secretion SARS-CoV-2 Antigen (Rapid) - Final 05/21/21 16:25 Sputum, Expectorated/Coughed Gram Stain - Final 05/21/21 16:25 Sputum, Expectorated/Coughed Respiratory Culture - Final Escherichia coli Coag Negative Staph GPC Poss Enterococcus sp 05/21/21 Unknown Mucosa - Nasopharyngeal Respiratory Panel (PCR) - Final 05/21/21 11:00 Urine Catheter - Hdez Legionella Antigen - Final 05/21/21 11:00 Urine Catheter - Hdez Streptococcus pneumoniae Antigen (M - Final 05/21/21 Unknown Mucosa - Nasopharyngeal Influenza Types A,B Direct FA ([place]) - Final Physical Exam Narrative GENERAL: In no apparent distress HEENT: Atraumatic; EYES; Anicteric, Normal Conjunctiva NECK; supple, normal thyroid, RESPIRATORY: Diminished to auscultation CARDIOVASCULAR: Regular S1 S2, GI: soft, normoactive bowel sounds, : No Renal angle tenderness; EXTREMITIES: No edema, no clubbing, MUSCULOSKELETAL: no muscle wasting NEURO: No lateralizing signs SKIN: No Rash PSYCH; Flat affect Assessment & Plan Assessment/Plan (1) Chronic insomnia: (2) UTI (urinary tract infection): (3) Delirium: (4) Hypotension: (5) Infectious encephalopathy: (6) Acute prerenal azotemia: (7) Septic shock: (8) Pneumonia: (9) Acute kidney injury: (10) Acute UTI: (11) Acute hypernatremia: (12) Acute hypotension: PLAN: Patient is a 66-year-old resident of an [facility] brought in with altered mental status 1. Acute metabolic encephalopathy ?Multifactorial from sepsis, BRIAN, infectious etiology (pneumonia and UTI). Patient has been admitted to the intensive care unit with treatment of conditions contributing to patient encephalopathy -05/22/2021. Patient level of sensorium improving ?05/25/2021 patient still remains significantly restless currently on Haldol as needed for agitation. Patient was transferred from ICU to [facility] floor. Patient's condition and case has been discussed with patient's decision maker his brother Chaz who is agreeable to no feeding tube nor PEG tube. He also apparently did agree to CODE STATUS changes to DNR CC and hospice consultation. I did place a call twice to brother he is yet to answer -05/26/2021 plan I will hold off patient is bradycardic day prior. Did discuss patient condition as well as prognosis. His wishes for patient to remain DNR CC. Hospice/palliative care scheduled to meet with patient's brother to discuss ongoing care. 2. Septic shock ?Patient qSOFA on admission was 3. Has elevated WBC count MAP less than 65 creatinine greater than 2 respiratory rate greater than 20 heart rate greater than 90. Patient did not respond to initial fluid resuscitation in the ER. Continues IV fluid resuscitation continued in the ICU. Cultures were obtained in the ED. Patient started on broad-spectrum antibiotic therapy with Zosyn Levaquin and vancomycin with consultation placed to ID and brand sales consultant -05/22/2021. Patient had to be started on Levophed in view of persistently low blood pressure which had failed to respond to fluids -05/23/2021; patient WBC count improving however patient still remains on pressors. Levophed 05/24/2021; patient urine cultures so far positive for E. coli. Sputum cultures positive for E. coli, coagulase-negative staph and GPC possible Enterococcus species.. Blood cultures so far negative to date. Subsequent antibiotic therapy deferred to ID -05/25/2021. Patient antibiotics switched to Levaquin 500 mg p.o. daily 3. Pneumonia ?Patient is at significant risk for MDR's. Patient was therefore started on broad-spectrum antibiotic therapy to cover for both Pseudomonas as well as MRSA pending culture result -05/22/2021; cultures pending -05/23/2021; patient to undergo speech and swallow eval if patient fails patient may be a candidate for PEG tube placement consult has been placed to Dr. Young with general surgery for possible PEG tube placement should patient fail her speech and swallow eval -05/24/2021 Consult was placed to general surgery and case discussed with Dr. Young for possible assessment for PEG tube placement. It was felt patient was not a good candidate for either PEG tube or Dobbhoff. Plan is to have a family discussion to discuss CODE STATUS and goals of care. ?05/25/2021 antibiotics switched to Levaquin 500 mg p.o. daily 4. Complicated acute cystitis ?Patient is on broad-spectrum antibiotic therapy cultures sent -05/22/2021; cultures pending -05/25/2021 cultures came back positive for E. coli sensitivities reviewed 5. Acute kidney injury ?Possibly ATN patient is on aggressive IV fluid resuscitation with monitoring of electrolytes with consultation placed to nephrology Case discussed with Dr. Barrios - 05/22/2021; patient kidney function remains impaired with a creatinine of 2.83 -05/23/2021; creatinine down to 1.33 6. Mild hyperkalemia ?Secondary to #5 do expect improvement with treatment of patient's BRIAN -05/22/2021 potassium down to 4.1 7. Hypernatremia ?Secondary to severe dehydration and hypovolemia. Patient is on aggressive IV fluid resuscitation with saline initially with plans to switch to 0.45 saline with serial monitoring with BMP ordered every 4. Nephrology on case -05/22/2021 sodium level down to 152 chloride remains elevated at 127 ?05/23/2021; sodium level 145 -05/25/2021; sodium levels trending up currently up to 150 patient started on D5W with serial monitoring of electrolytes ordered -05/26/2021 sodium level down to 144, did decrease rate of patient D5W to 75 cc an hour 8. Elevated troponin secondary to acute non-STEMI type II ?As a result of patient underlying infection and sepsis -05/22/2021 patient Troponin continues to rise 589 as of last evening. 2D echo ordered for regional wall motion abnormalities Assessment. 2D echo demonstrated EF of 65% with a normal left ventricular systolic function pulmonary arterial systolic pressure of 26 and moderate mitral annular calcification 9. Essential hypertension ?Patient antihypertensives on hold 10. Dyslipidemia ?Patient was previously on statin therapy currently not on the med 11. Paroxysmal A. fib ?Currently in sinus rhythm 12. Diabetes mellitus type 2 ?Patient is on Metformin this was held please on Accu-Cheks every 6 with insulin coverage 13. Achalasia ?Patient has history of previous esophageal food impaction 14. Dementia ?Per history supportive care 15. DVT prophylaxis ?SC heparin 16. Anemia - Secondary to chronic disorder monitoring H&H and transfuse if patient becomes symptomatic or hemoglobin falls below 7 17. Hypokalemia -Corrected per protocol CODE STATUS; DNR CC Charges/Coding Visit Charges Inpatient E&M: 91377 Subs Hosp L3
[2021-05-26] MEDS: ARIPiprazole 10 MG Tablet PO (08:35)
[2021-05-26] MEDS: Nystatin Powder 15gm Bottle 1 APPLIC TOPICAL (08:36)
[2021-05-26] MEDS: lamoTRIgine 25 MG Tablet PO (08:36)
[2021-05-26 08:37] LABS: Absolute Lymphocyte Count 0.72 X10^3/uL (0.83-4.51); Absolute Neutrophil Count 1.9 X10^3/uL (2.0-7.7); Eosinophil# 0.39 X10^3/uL; Eosinophils% 11.4 % (0-5); Hematocrit 30.8 % (37-47); Hemoglobin 10.1 g/dL (12.0-15.0); Lymphocyte # 0.72 X10^3/ul (0.83-4.51); Mean Corp Hgb Conc 32.8 g/dL (32-36); Mean Corpuscular Hgb 29.1 pg (27.0-32.0); Mean Corpuscular Volume 88.8 fL (81-99); Mean Platelet Vol. 14.1 fl (6.2-12.0); Monocyte% 11.7 % (0-10); NRBC Flagged by Analyzer 0 % (0-5); Neutrophil % 55.3 % (47-70); POSITIVE COUNT YES; Platelet Count 89 K/mm3 (150-450); RBC Distribution Width CV 16.7 % (11.6-14.6); RBC Distribution Width SD 53.7 fl (35.1-43.9); Red Blood Count 3.47 M/mm3 (4.2-5.4); White Blood Count 3.4 K/mm3 (4.4-11.0)
[2021-05-26] MEDS: Oxybutynin 5 MG Tablet PO (08:37)
[2021-05-26] MEDS: Benztropine Mesylate 0.5 MG TABLET 1 MG PO (08:37)
[2021-05-26] MEDS: QUEtiapine 100 MG Tablet PO (08:38)
[2021-05-26] MEDS: Menthol/Lanolin/Calamine/Znox 113 GM Tube 1 APPLIC TOPICAL (08:39)
[2021-05-26] MEDS: Potassium Chloride Oral Soln 20 MEQ/15 ML UDC 40 MEQ PO (08:58)
--- NOTE | 2021-05-26 12:04 | TREXTCAR_ITS ---
Diet 05/24/21 15:05 Diet: Carbohydrate Controlled Food consistency:: Pureed Liquid Consistency:: Honey/Moderately Thick Is pt able to select menu?: No Diet Comments: TOTAL FEED, sips by tsp, discontinue meal if increased s/s of aspiration Routine Orders/Code Status Code Status: DNRCC Wound(s) right neck: Wound Type: Puncture b/l elbows: Wound Type: Abrasion right heel: Wound Type: blister right buttocks: Wound Type: Pressure Injury Therapies Physical Therapy: Eval and Treat Occupational Therapy: Eval and Treat Speech Therapy: Eval and Treat Problem/Diagnosis (1) Chronic insomnia: Status: Chronic (2) UTI (urinary tract infection): Status: Acute (3) Delirium: Status: Acute (4) Hypotension: Status: Acute (5) Infectious encephalopathy: Status: Acute (6) Acute prerenal azotemia: Status: Acute (7) Septic shock: Status: Acute (8) Pneumonia: Status: Acute (9) Acute kidney injury: Status: Acute (10) Acute UTI: Status: Acute (11) Acute hypernatremia: Status: Acute (12) Acute hypotension: Status: Acute Allergies/Procedures Done in Hospital Allergies No Known Allergies Allergy (Verified 05/21/21 09:22) Type of Care/Length of Stay Estimated LOS: More Than 30 Days Type of Care Needed: Intermediate Rehab Potential: Poor Prognosis: Poor Additional Orders/Day of Discharge Day of Discharge: 05/26/21 Dietary and Speech Recommendations Dietitian Recommendations/Changes: recommend advance diet as tolerated to regular. Will adjust diet/add ONS pending PO intake as established. Discharge Plan Admission Admit Date/Time: 05/21/21 11:51 Attending Provider: Beni Lackey Primary Care Provider: Allen Castellano Consulting Providers: Pat Klein ; Yeison Howard ; Daryn Almanza ; Reji Enciso ; Juanita Hughes HIGH SCHOOL MUSIC DIRECTOR ; Layne Barrios ; Eunice Bryant ; Beni Pruitt ; Alice Petersen ; Marisela Lucas ; Sasha Miguel ; Bianka Chapman HIGH SCHOOL MUSIC DIRECTOR Discharge Orders/Prescriptions Prescriptions: New levofloxacin 500 mg Tablet 500 mg PO 0600 Qty: 5 RF: 0 Continued lisinopril 40 MG tablet 10 mg PO DAILY RF: 0 metformin 500 MG tablet 500 mg PO BID RF: 0 aspirin 81 MG tablet,delayed release (DR/EC) 81 mg PO DAILY RF: 0 oxybutynin chloride 5 MG tablet 5 mg PO BID RF: 0 guaifenesin 10 ML liquid 10 ml PO Q4H PRN PRN (Reason: cough,congestion) RF: 0 bisacodyl 10 MG suppository 10 mg RC DAILY PRN PRN (Reason: Constipation) RF: 0 albuterol sulfate 1 PUFF inhaler 2 puff IH 4X/DAY RF: 0 alum-mag hydroxide-simeth 30 ML suspension 30 ml PO Q4H PRN PRN (Reason: gi distress) RF: 0 acetaminophen 325 MG tablet 650 mg PO Q4H PRN PRN (Reason: pain/fever) RF: 0 glucagon 1 mg Kit 1 mg IM PRN PRN (Reason: Hypoglycemia) RF: 0 acetaminophen 650 mg Suppository 650 mg FL Q4H PRN (Reason: pain/fever) RF: 0 dextrose [Glucose Gel] 40 % Gel 10 g PO Q15M PRN (Reason: Hypoglycemia) RF: 0 quetiapine 200 mg Tablet 200 mg PO QHS RF: 0 quetiapine 100 mg Tablet 100 mg PO DAILY RF: 0 lamotrigine 25 mg Tablet 25 mg PO DAILY RF: 0 magnesium hydroxide [Milk of Magnesia] 400 mg/5 mL Suspension 30 ml PO DAILY PRN (Reason: Constipation) RF: 0 diphenhydramine HCl [Benadryl] 25 mg Capsule 25 mg PO Q6H PRN PRN (Reason: Itching) RF: 0 benztropine 1 mg Tablet 1 mg PO DAILY RF: 0 Fleet Enema 19-7 gram/118 mL Enema 118 ml FL DAILY PRN (Reason: Constipation) RF: 0 nystatin 100,000 unit/gram Powder 1 applic TOPICAL BID RF: 0 aripiprazole [Abilify] 10 mg Tablet 10 mg PO BID RF: 0 guaifenesin 400 mg Tablet 400 mg PO Q4H PRN (Reason: Congestion) RF: 0 melatonin 5 mg Tablet 5 mg PO QHS RF: 0 Dulera 100-5 mcg/actuation Hfa Aerosol Inhaler 1 puff INHALATION DAILY RF: 0 Aristada 882 mg/3.2 mL Suspension,Extended Rel Syring 882 mg IM QMONTH RF: 0 clonazepam 1 mg Tablet 1 mg PO TID Qty: 6 RF: 0 Referrals / Follow Up: Allen Castellano MD [Primary Care Provider] - Within 1 Week Disposition Disposition (needs filled in before D/C Order can be placed): [facility]
--- NOTE | 2021-05-26 12:21 | PCM.DC.SUM ---
Providers Date of Admission: 05/21/21 Primary Care Physician: Dr. Allen Castellano MD Consultations 05/21/21 11:55 Consult: Nephrology Routine Consulting Provider: Layne Barrios Reason for Consult: brian EMERGENT Consult: No MD Notified: Yes Date Notified: 05/21/21 Time Notified: 12:00 Method of Notification: Verbal 05/21/21 11:56 Consult: Infectious Disease Routine Consulting Provider: Yeison Howard Reason for Consult: pneumonia EMERGENT Consult: No MD Notified: Yes Date Notified: 05/21/21 Time Notified: 13:29 Method of Notification: Text Consult: Business Associate / Pulmonary Medicine Routine Consulting Provider: Pulmonary Medicine [facility] Reason for Consult: resp failure EMERGENT Consult: No Notified: Yes Date Notified: 05/21/21 Time Notified: 11:56 Method of Notification: Verbal 05/23/21 08:42 Consult: General Surgery Routine Consulting Provider: Pat Klein Reason for Consult: Possible PEG tube placement EMERGENT Consult: No MD Notified: Yes Date Notified: 05/23/21 Time Notified: 08:42 Method of Notification: Text 05/24/21 16:27 Consult: Hospice / Palliative Care Routine Consulting Provider: [facility] Reason for Consult: for eval EMERGENT Consult: No MD Notified: Yes Date Notified: 05/24/21 Time Notified: 16:27 Method of Notification: phone Comments:: spoke with Dex from hospice Reason For Visit: ACUTE METABOLIC ENCEPHALOPATHY,BRIAN,SEPSIS,UTI,PNEU Diagnosis Discharge Diagnosis (1) Chronic insomnia: Status: Chronic Code(s): F51.04 - Psychophysiologic insomnia (2) UTI (urinary tract infection): Status: Acute Code(s): N39.0 - Urinary tract infection, site not specified (3) Delirium: Status: Acute Code(s): R41.0 - Disorientation, unspecified (4) Hypotension: Status: Acute Code(s): I95.9 - Hypotension, unspecified (5) Infectious encephalopathy: Status: Acute Code(s): G93.49 - Other encephalopathy; B99.9 - Unspecified infectious disease (6) Acute prerenal azotemia: Status: Acute Code(s): N19 - Unspecified kidney failure (7) Septic shock: Status: Acute Code(s): A41.9 - Sepsis, unspecified organism; R65.21 - Severe sepsis with septic shock (8) Pneumonia: Status: Acute Code(s): J18.9 - Pneumonia, unspecified organism (9) Acute kidney injury: Status: Acute Code(s): N17.9 - Acute kidney failure, unspecified (10) Acute UTI: Status: Acute Code(s): N39.0 - Urinary tract infection, site not specified (11) Acute hypernatremia: Status: Acute Code(s): E87.0 - Hyperosmolality and hypernatremia (12) Acute hypotension: Status: Acute Code(s): I95.9 - Hypotension, unspecified Medications at Discharge Home Medications lisinopril 10 mg PO DAILY 12/01/13 aspirin 81 mg PO DAILY 05/18/19 metformin 500 mg PO BID 05/18/19 oxybutynin chloride 5 mg PO BID 05/18/19 albuterol sulfate 2 puff IH 4X/DAY 04/01/20 alum-mag hydroxide-simeth 30 ml PO Q4H PRN PRN 04/01/20 bisacodyl 10 mg RC DAILY PRN PRN 04/01/20 guaifenesin 10 ml PO Q4H PRN PRN 04/01/20 acetaminophen 650 mg PO Q4H PRN PRN 06/08/20 Aristada 882 mg IM QMONTH 05/21/21 Dulera 1 puff INHALATION DAILY 05/21/21 Fleet Enema 118 ml UT DAILY PRN 05/21/21 acetaminophen 650 mg UT Q4H PRN 05/21/21 aripiprazole [Abilify] 10 mg PO BID 05/21/21 benztropine 1 mg PO DAILY 05/21/21 dextrose [Glucose Gel] 10 g PO Q15M PRN 05/21/21 diphenhydramine HCl [Benadryl] 25 mg PO Q6H PRN PRN 05/21/21 glucagon 1 mg IM PRN PRN 05/21/21 guaifenesin 400 mg PO Q4H PRN 05/21/21 lamotrigine 25 mg PO DAILY 05/21/21 magnesium hydroxide [Milk of Magnesia] 30 ml PO DAILY PRN 05/21/21 melatonin 5 mg PO QHS 03/08/22 nystatin 1 applic TOPICAL BID 05/21/21 quetiapine 100 mg PO DAILY 05/21/21 quetiapine 200 mg PO QHS 05/21/21 clonazepam 1 mg PO TID #6 tab 05/26/21 levofloxacin 500 mg PO 0600 #5 tab 05/26/21 Hospital Course Summary of Care Provided Minutes Spent on Discharge: 45 Hospital Course: Patient is a 66-year-old resident of an [facility] brought in with altered mental status 1. Acute metabolic encephalopathy ?Multifactorial from sepsis, BRIAN, infectious etiology (pneumonia and UTI). Patient has been admitted to the intensive care unit with treatment of conditions contributing to patient encephalopathy -05/22/2021. Patient level of sensorium improving ?05/25/2021 patient still remains significantly restless currently on Haldol as needed for agitation. Patient was transferred from ICU to [facility] floor. Patient's condition and case has been discussed with patient's decision maker his brother Chaz who is agreeable to no feeding tube nor PEG tube. He also apparently did agree to CODE STATUS changes to DNR CC and hospice consultation. I did place a call twice to brother he is yet to answer -05/26/2021 plan I will hold off patient is bradycardic day prior. Did discuss patient condition as well as prognosis. His wishes for patient to remain DNR CC. Hospice/palliative care scheduled to meet with patient's brother to discuss ongoing care. 2. Septic shock ?Patient qSOFA on admission was 3. Has elevated WBC count MAP less than 65 creatinine greater than 2 respiratory rate greater than 20 heart rate greater than 90. Patient did not respond to initial fluid resuscitation in the ER. Continues IV fluid resuscitation continued in the ICU. Cultures were obtained in the ED. Patient started on broad-spectrum antibiotic therapy with Zosyn Levaquin and vancomycin with consultation placed to ID and passenger coach driver -05/22/2021. Patient had to be started on Levophed in view of persistently low blood pressure which had failed to respond to fluids -05/23/2021; patient WBC count improving however patient still remains on pressors. Levophed 05/24/2021; patient urine cultures so far positive for E. coli. Sputum cultures positive for E. coli, coagulase-negative staph and GPC possible Enterococcus species.. Blood cultures so far negative to date. Subsequent antibiotic therapy deferred to ID -05/25/2021. Patient antibiotics switched to Levaquin 500 mg p.o. daily 3. Pneumonia ?Patient is at significant risk for MDR's. Patient was therefore started on broad-spectrum antibiotic therapy to cover for both Pseudomonas as well as MRSA pending culture result -05/22/2021; cultures pending -05/23/2021; patient to undergo speech and swallow eval if patient fails patient may be a candidate for PEG tube placement consult has been placed to Dr. Young with general surgery for possible PEG tube placement should patient fail her speech and swallow eval -05/24/2021 Consult was placed to general surgery and case discussed with Dr. Young for possible assessment for PEG tube placement. It was felt patient was not a good candidate for either PEG tube or Dobbhoff. Plan is to have a family discussion to discuss CODE STATUS and goals of care. ?05/25/2021 antibiotics switched to Levaquin 500 mg p.o. daily 4. Complicated acute cystitis ?Patient is on broad-spectrum antibiotic therapy cultures sent -05/22/2021; cultures pending -05/25/2021 cultures came back positive for E. coli sensitivities reviewed 5. Acute kidney injury ?Possibly ATN patient is on aggressive IV fluid resuscitation with monitoring of electrolytes with consultation placed to nephrology Case discussed with Dr. Barrios - 05/22/2021; patient kidney function remains impaired with a creatinine of 2.83 -05/23/2021; creatinine down to 1.33 6. Mild hyperkalemia ?Secondary to #5 do expect improvement with treatment of patient's BRIAN -05/22/2021 potassium down to 4.1 7. Hypernatremia ?Secondary to severe dehydration and hypovolemia. Patient is on aggressive IV fluid resuscitation with saline initially with plans to switch to 0.45 saline with serial monitoring with BMP ordered every 4. Nephrology on case -05/22/2021 sodium level down to 152 chloride remains elevated at 127 ?05/23/2021; sodium level 145 -05/25/2021; sodium levels trending up currently up to 150 patient started on D5W with serial monitoring of electrolytes ordered -05/26/2021 sodium level down to 144, did decrease rate of patient D5W to 75 cc an hour 8. Elevated troponin secondary to acute non-STEMI type II ?As a result of patient underlying infection and sepsis -05/22/2021 patient Troponin continues to rise 589 as of last evening. 2D echo ordered for regional wall motion abnormalities Assessment. 2D echo demonstrated EF of 65% with a normal left ventricular systolic function pulmonary arterial systolic pressure of 26 and moderate mitral annular calcification 9. Essential hypertension ?Patient antihypertensives on hold 10. Dyslipidemia ?Patient was previously on statin therapy currently not on the med 11. Paroxysmal A. fib ?Currently in sinus rhythm 12. Diabetes mellitus type 2 ?Patient is on Metformin this was held please on Accu-Cheks every 6 with insulin coverage 13. Achalasia ?Patient has history of previous esophageal food impaction 14. Dementia ?Per history supportive care 15. DVT prophylaxis ?SC heparin 16. Anemia - Secondary to chronic disorder monitoring H&H and transfuse if patient becomes symptomatic or hemoglobin falls below 7 17. Hypokalemia -Corrected per protocol CODE STATUS; DNR CC Physical Exam Narrative GENERAL: In no apparent distress HEENT: Atraumatic; EYES; Anicteric, Normal Conjunctiva NECK; supple, normal thyroid, RESPIRATORY: Diminished to auscultation CARDIOVASCULAR: Regular S1 S2, GI: soft, normoactive bowel sounds, : No Renal angle tenderness; EXTREMITIES: No edema, no clubbing, MUSCULOSKELETAL: no muscle wasting NEURO: No lateralizing signs SKIN: No Rash PSYCH; Flat affect Weight / BMI Weight Weight: 67.3 kg Body Mass Index (BMI) 28.9 ABG / Lab / Microbiology Data Result Diagrams: 05/26/21 07:45 05/26/21 06:26 Laboratory: Laboratory Results - last 24 hr 05/25/21 11:37: POC Glucose 103 05/25/21 16:41: POC Glucose 96 05/25/21 22:14: POC Glucose 109 H 05/26/21 05:58: POC Glucose 127 H 05/26/21 06:26: WBC Cancelled, Corrected WBC Cancelled, RBC Cancelled, Hgb Cancelled, Hct Cancelled, MCV Cancelled, MCH Cancelled, MCHC Cancelled, RDW Std Deviation Cancelled, RDW Coeff of Jesica Cancelled, Plt Count Cancelled, MPV Cancelled, Immature Gran % (Auto) Cancelled, Neut % (Auto) Cancelled, Lymph % (Auto) Cancelled, [place] % (Auto) Cancelled, Eos % (Auto) Cancelled, Baso % (Auto) Cancelled, Absolute Neuts (auto) Cancelled, Absolute Lymphs (auto) Cancelled, Total Counted Cancelled, Neutrophils % (Manual) Cancelled, Band Neutrophils % Cancelled, Lymphocytes % (Manual) Cancelled, Monocytes % (Manual) Cancelled, Eosinophils % (Manual) Cancelled, Basophils % (Manual) Cancelled, Metamyelocytes % Cancelled, Myelocytes % Cancelled, Promyelocytes % Cancelled, Blast Cells % Cancelled, Plasma Cell % (Manual) Cancelled, Other Cells % Cancelled, Nucleated RBC % Cancelled, Nucleated RBCs/100 WBC Cancelled, Differential Comment Cancelled, Diff Path Review Cancelled, Hypersegmented Neuts Cancelled, Atypical Lymphocytes Cancelled, Reactive Lymphocytes Cancelled, Smudge Cells Cancelled, Toxic Granulation Cancelled, Toxic Vacuolation Cancelled, Dohle Bodies Cancelled, Connor Rods Cancelled, Platelet Estimate Cancelled, Plt Morphology Comment Cancelled, RBC Morphology Cancelled, Polychromasia Cancelled, Hypochromasia Cancelled, Poikilocytosis Cancelled, Basophilic Stippling Cancelled, Anisocytosis Cancelled, Microcytosis Cancelled, Macrocytosis Cancelled, Spherocytes Cancelled, Sickle Cells Cancelled, Target Cells Cancelled, Tear Drop Cells Cancelled, Ovalocytes Cancelled, Stomatocytes Cancelled, [place] Bodies Cancelled, [place] Cells Cancelled, Bite Cells Cancelled, Crenated Cell Cancelled, Acanthocytes (Spur) Cancelled, Rouleaux Cancelled, Schistocytes Cancelled 05/26/21 06:26: Sodium 144, Potassium 3.4 L, Chloride 120 H, Carbon Dioxide 21.0, Anion Gap 3 L, BUN 11, Creatinine 0.86, Estim Creat Clear Calc 67.44, Est GFR (MDRD) Af Amer 85, Est GFR (MDRD) Non-Af 70, BUN/Creatinine Ratio 12.9, Glucose 121 H, Calcium 7.6 L 05/26/21 07:45: WBC 3.4 L, RBC 3.47 L, Hgb 10.1 L, Hct 30.8 L, MCV 88.8, MCH 29.1, MCHC 32.8, RDW Std Deviation 53.7 H, RDW Coeff of Jesica 16.7 H, Plt Count 89 L, MPV 14.1 H, Immature Gran % (Auto) 0.600, Neut % (Auto) 55.3, Lymph % (Auto) 21.0, [place] % (Auto) 11.7 H, Eos % (Auto) 11.4 H, Baso % (Auto) 0.0, Absolute Neuts (auto) 1.9 L, Absolute Lymphs (auto) 0.72 L, Nucleated RBC % 0 Microbiology: Microbiology 05/21/21 11:00 Urine, Clean Catch Urine Culture - Final Escherichia coli 05/23/21 10:00 Stool C. difficile DNA Amplification - Final 05/21/21 09:20 Blood Culture (Wb) - Right Hand Blood Culture - Preliminary No growth in 48 hours. 05/21/21 09:20 Blood Culture (Wb) - Left Hand Blood Culture - Preliminary No growth in 48 hours. 05/21/21 09:50 Nasal Secretion SARS-CoV-2 Antigen (Rapid) - Final 05/21/21 16:25 Sputum, Expectorated/Coughed Gram Stain - Final 05/21/21 16:25 Sputum, Expectorated/Coughed Respiratory Culture - Final Escherichia coli Coag Negative Staph GPC Poss Enterococcus sp 05/21/21 Unknown Mucosa - Nasopharyngeal Respiratory Panel (PCR) - Final 05/21/21 11:00 Urine Catheter - Hdez Legionella Antigen - Final 05/21/21 11:00 Urine Catheter - Hdez Streptococcus pneumoniae Antigen (M - Final 05/21/21 Unknown Mucosa - Nasopharyngeal Influenza Types A,B Direct FA ([place]) - Final D/C Instructions Discharge Diet: Soft diet Meaningful Use Info Meaningful Use Diagnoses (Choose all that apply): None applicable Discharge Plan Admission Admit Date/Time: 05/21/21 11:51 Attending Provider: Beni Lackey Primary Care Provider: Allen Castellano Consulting Providers: Pat Klein ; Yeison Howard ; Daryn Almanza ; Reji Enciso ; Juanita Hughes EARTH SCIENCE TECHNICIAN ; Layne Barrios ; Eunice Bryant ; Beni Pruitt ; Alice Petersen ; Marisela Lcuas ; Sasha Miguel ; Bianka Chapman EARTH SCIENCE TECHNICIAN Discharge Orders/Prescriptions Prescriptions: New levofloxacin 500 mg Tablet 500 mg PO 0600 Qty: 5 RF: 0 Continued lisinopril 40 MG tablet 10 mg PO DAILY RF: 0 metformin 500 MG tablet 500 mg PO BID RF: 0 aspirin 81 MG tablet,delayed release (DR/EC) 81 mg PO DAILY RF: 0 oxybutynin chloride 5 MG tablet 5 mg PO BID RF: 0 guaifenesin 10 ML liquid 10 ml PO Q4H PRN PRN (Reason: cough,congestion) RF: 0 bisacodyl 10 MG suppository 10 mg RC DAILY PRN PRN (Reason: Constipation) RF: 0 albuterol sulfate 1 PUFF inhaler 2 puff IH 4X/DAY RF: 0 alum-mag hydroxide-simeth 30 ML suspension 30 ml PO Q4H PRN PRN (Reason: gi distress) RF: 0 acetaminophen 325 MG tablet 650 mg PO Q4H PRN PRN (Reason: pain/fever) RF: 0 glucagon 1 mg Kit 1 mg IM PRN PRN (Reason: Hypoglycemia) RF: 0 acetaminophen 650 mg Suppository 650 mg UT Q4H PRN (Reason: pain/fever) RF: 0 dextrose [Glucose Gel] 40 % Gel 10 g PO Q15M PRN (Reason: Hypoglycemia) RF: 0 quetiapine 200 mg Tablet 200 mg PO QHS RF: 0 quetiapine 100 mg Tablet 100 mg PO DAILY RF: 0 lamotrigine 25 mg Tablet 25 mg PO DAILY RF: 0 magnesium hydroxide [Milk of Magnesia] 400 mg/5 mL Suspension 30 ml PO DAILY PRN (Reason: Constipation) RF: 0 diphenhydramine HCl [Benadryl] 25 mg Capsule 25 mg PO Q6H PRN PRN (Reason: Itching) RF: 0 benztropine 1 mg Tablet 1 mg PO DAILY RF: 0 Fleet Enema 19-7 gram/118 mL Enema 118 ml UT DAILY PRN (Reason: Constipation) RF: 0 nystatin 100,000 unit/gram Powder 1 applic TOPICAL BID RF: 0 aripiprazole [Abilify] 10 mg Tablet 10 mg PO BID RF: 0 guaifenesin 400 mg Tablet 400 mg PO Q4H PRN (Reason: Congestion) RF: 0 melatonin 5 mg Tablet 5 mg PO QHS RF: 0 Dulera 100-5 mcg/actuation Hfa Aerosol Inhaler 1 puff INHALATION DAILY RF: 0 Aristada 882 mg/3.2 mL Suspension,Extended Rel Syring 882 mg IM QMONTH RF: 0 clonazepam 1 mg Tablet 1 mg PO TID Qty: 6 RF: 0 Referrals / Follow Up: Allen Castellano MD [Primary Care Provider] - Within 1 Week Disposition Disposition (needs filled in before D/C Order can be placed): [facility] Facility Charges/Coding Visit Charges Inpatient E&M: 80286 Disch Hosp
--- NOTE | 2021-05-26 12:26 | NURSING ---
Called Cheryl Mendoza and left message about pts discharge today back to [facility].
[2021-05-26 13:06] LABS: Bedside Glucose 121 mg/dL (74-106)
--- NOTE | 2021-05-26 13:52 | NURSING ---
DISCHARGE PACKET/MED LIST/ORDERS/COVID TEST RESULTS FAXED TO [facility]
--- NOTE | 2021-05-26 14:30 | NURSING ---
AWARE PER HUGO FROM HOSPICE, HOSPICE PAPERWORK HAS BEEN SIGNED REQUESTING TRANSPORTATION TO [facility] BE ARRANGED. PRIMARY RN UPDATED.
[2021-05-26] MEDS: clonazePAM 1 MG Tablet PO (14:35)
--- NOTE | 2021-05-26 14:36 | NURSING ---
PRIMARY RN AND HUGO FROM HOSPICE UPDATED, TRANSPORTATION VIA COT WITH PHYSICIANS ARRANGED ETA FOR TRANSPORT 15:00
--- NOTE | 2021-05-26 15:22 | NURSING ---
Report called to [facility] spoke with
[2021-05-27 12:48] LABS: Pathologist Review Reviewed
== END 2021-05-26 15:20 | disposition skilled nursing facility (03) | DRG 720 ==
LOC: ED 11:51 → ICU 12:30 → MS3 05-26 12:18
PROVIDERS: Internal Medicine Critical Care Medicine; Admitting Provider Internal Medicine; Emergency Provider Emergency Medicine; PCP Family Medicine; Visit Provider Internal Medicine
DX: A41.51 Sepsis due to Escherichia coli [E. coli] (principal); N17.0 Acute kidney failure with tubular necrosis; R65.21 Severe sepsis with septic shock; G93.41 Metabolic encephalopathy; J15.6 Pneumonia due to other Gram-negative bacteria; E43 Unspecified severe protein-calorie malnutrition; E87.0 Hyperosmolality and hypernatremia; I48.0 Paroxysmal atrial fibrillation; E11.9 Type 2 diabetes mellitus without complications; F03.90 Unspecified dementia, unspecified severity, without behavioral disturbance, psychotic disturbance, mood disturbance, and anxiety; I21.A1 Myocardial infarction type 2; F20.9 Schizophrenia, unspecified; F31.9 Bipolar disorder, unspecified; K22.0 Achalasia of cardia; I10 Essential (primary) hypertension; E78.5 Hyperlipidemia, unspecified; E86.1 Hypovolemia; E87.5 Hyperkalemia; B95.2 Enterococcus as the cause of diseases classified elsewhere; B95.7 Other staphylococcus as the cause of diseases classified elsewhere; N30.00 Acute cystitis without hematuria; D63.8 Anemia in other chronic diseases classified elsewhere; I95.89 Other hypotension; F05 Delirium due to known physiological condition; E86.0 Dehydration; F51.04 Psychophysiologic insomnia; F79 Unspecified intellectual disabilities; R13.10 Dysphagia, unspecified; Z68.28 Body mass index [BMI] 28.0-28.9, adult; Z91.89 Other specified personal risk factors, not elsewhere classified; Z79.82 Long term (current) use of aspirin; Z79.84 Long term (current) use of oral hypoglycemic drugs; Z79.899 Other long term (current) drug therapy; Z66 Do not resuscitate
CPT/HCPCS: 36415; 36556; 36600; 51702; 71045; 74230; 80048; 80053; 80076; 80202; 81001; 82803; 82962; 83605; 83735; 84443; 84484; 85025; 87040; 87070; 87077; 87086; 87088; 87186; 87205; 87426; 87449; 87493; 87633; 87641; 87804; 92526; 92610; 92611; 93005; 93306; 94640; 97110; 97162; 97167; 97530; 97535; 97803; 99251; 99285; J7030; J7050; A4216; C1751; G0463; J3486